=== PATIENT | male | born 1940 | race Caucasian/White ===

== ENCOUNTER → 2016-06-12 | Outpatient (CLI) | payer BC ==
[~2016-06-12] MED LIST: AMR2 PO; ASPI81TA28 PO; ATOR-22 PO; CLAR-78 PO; GLC/500 PO; IPRA1AER2 INH; MOME200A INH; PRED1SUS3 OPL; [UNRECOGNIZED DRUG - CODE] PO
--- NOTE | 2016-06-12 09:57 | DIAGNOSTIC IMAGING REPORT ---
CHEST CT WITHOUT CONTRAST CT DOSE: 716.63 mGy.cm HISTORY: Follow-up pulmonary nodule. J44.9 Chronic obstructive pulmonary [id number] Incidental lung TECHNIQUE: Multiaxial CT images of the chest were performed without contrast. COMPARISON: Chest CT 05/22/2014. FINDINGS: The central airways are patent. Moderate emphysema. Punctate calcified granuloma within the left upper lobe. Stable 3 mm subpleural point on within the right upper lobe on image 100. No new pulmonary nodules. No focal lung consolidations. No pleural effusions. No pneumothorax. No suspicious lytic or blastic osseous lesions. The heart is normal in size. No mediastinal or hilar lymphadenopathy. Stable 13 mm hypodense lesion within the upper pole of the right kidney. This likely represents a cyst. The visualized liver, spleen, and adrenal glands are unremarkable. Normal caliber thoracic aorta. IMPRESSION: 1. No significant change compared to the prior study. No acute abnormality within the chest. 2. Moderate emphysema. 3. Stable benign 3 mm nodule within the right upper lobe. Electronically signed by: Shadi Lindsey M.D. 06/12/2016 9:56 AM
== END | disposition home or self-care (01) ==
LOC: C.CTS 09:27
PROVIDERS: ATTEND Internal Medicine Pulmonary Disease
DX: J44.9 Chronic obstructive pulmonary disease, unspecified (principal); R91.1 Solitary pulmonary nodule

== ENCOUNTER → 2016-07-14 | Outpatient (CLI) | payer BC | END | disposition home or self-care (01) | LOC: C.LAB1850 08:10 | PROVIDERS: ATTEND Internal Medicine | DX: E11.9 Type 2 diabetes mellitus without complications (principal) ==

== ENCOUNTER → 2016-09-03 | Outpatient (CLI) | payer BC ==
--- NOTE | 2016-09-10 12:35 | CODING QUERY MEDICAL NECESSITY ---
SUPPORTING DIAGNOSIS NEEDED A supporting diagnosis is required for the test/procedure performed on this patient in order for us to be reimbursed by the patient's insurance. Please provide a supporting diagnosis for the following test/procedure listed below next to the test name along with your signature. *If there is no additional diagnosis for this patient that would support the following test/procedure please document that below next to the test/procedure. Test(s)/Procedure(s) that require a supporting diagnosis: * FRUCTOSAMINE DIAGNOSIS: * DOS: 09/03/16 Provider Signature: Date: Thank you Corinne Quezada Health Information Management Once completed, please kindly fax back to [phone] For questions please call [phone]
== END | disposition home or self-care (01) ==
LOC: C.LAB1850 09:33
PROVIDERS: ATTEND Internal Medicine
DX: E78.00 Pure hypercholesterolemia, unspecified (principal); E11.9 Type 2 diabetes mellitus without complications

== ENCOUNTER → 2016-10-22 | Outpatient (CLI) | payer BC ==
[~2016-10-22] MED LIST changes: -CLAR-78 PO; +CLAR1TAB25 PO
[2016-10-22 14:55] LABS: BASO % 0.6 %; BASO ABS # 0.06 K/uL (0-0.2); COMPLETE YES; EOS % 7.3 %; IG% 0.2 %; LYMPH % 25.3 %; LYMPH ABS # 2.48 K/uL (1.2-3.4); MEAN CELL VOLUME 90.7 fL (80-100); MEAN CORPUSCULAR HEMOGLOBIN 29.8 pg (25-34); MEAN CORPUSCULAR HGB CONC 32.8 g/dl (32-36); MEAN PLATELET VOLUME 10.3 fL (7.4-10.4); MONO % 9.6 %; PLATELET COUNT 263 K/uL (130-400); RED BLOOD COUNT 5.07 M/uL (4.7-6.1); WHITE BLOOD COUNT 9.81 K/uL (4.8-10.8)
[2016-10-22 15:07] LABS: URINE APPEARANCE CLEAR (CLEAR); URINE BILIRUBIN NEG (NEG); URINE COLOR YELLOW; URINE EPITHELIAL CELL AUTO 0-5 /lpf (0-5); URINE NITRITE NEG (NEG); URINE SPECIFIC GRAVITY 1.013 (1.000-1.030); UROBILINOGEN NEG (NEG)
[2016-10-22 15:10] LABS: MANUAL MICROSCOPIC REQUIRED? NO; REVIEW REQ? NO
[2016-10-22 15:13] LABS: ALT/SGPT 30 U/L (12-78); AST/SGOT 17 U/L (15-37)
[2016-10-23 06:27] LABS: ESTIMATED AVERAGE GLUCOSE 180 mg/dl; HA1C FLAG Normal (Normal)
--- NOTE | 2016-10-27 11:47 | CODING QUERY MEDICAL NECESSITY ---
SUPPORTING DIAGNOSIS NEEDED Dr. Perla, A supporting diagnosis is required for the test/procedure performed on this patient in order for us to be reimbursed by the patient's insurance. Please provide a supporting diagnosis for the following test/procedure listed below next to the test name along with your signature. *If there is no additional diagnosis for this patient that would support the following test/procedure please document that below next to the test/procedure. Test(s)/Procedure(s) that require a supporting diagnosis: * [id number] GLYCATED HEMOGLOBIN DIAGNOSIS: * [id number] FRUCTOSAMINE DIAGNOSIS: DATE OF SERVICE: 10/22/16 Provider Signature: Date: Thank you Ba [facility] Information Management Once completed, please kindly fax back to [phone] For questions please call [phone]
== END | disposition home or self-care (01) ==
LOC: C.LAB1850 13:43
PROVIDERS: ATTEND Internal Medicine
DX: E78.00 Pure hypercholesterolemia, unspecified (principal); E11.9 Type 2 diabetes mellitus without complications

== ENCOUNTER → 2017-01-27 | Outpatient (CLI) | payer BC ==
[~2017-01-27] MED LIST changes: +CLAR-78 PO; -CLAR1TAB25 PO
[2017-01-27 10:27] LABS: BASO % 0.8 %; BASO ABS # 0.06 K/uL (0-0.2); COMPLETE YES; EOS % 6.3 %; HEMATOCRIT 45.3 % (42-52); IG% 0.3 %; LYMPH ABS # 1.78 K/uL (1.2-3.4); MEAN CELL VOLUME 90.2 fL (80-100); MEAN CORPUSCULAR HEMOGLOBIN 30.7 pg (25-34); MEAN PLATELET VOLUME 10.4 fL (7.4-10.4); MONO % 9.7 %; NEUT % 59.9 %; PLATELET COUNT 245 K/uL (130-400); RED BLOOD COUNT 5.02 M/uL (4.7-6.1); WHITE BLOOD COUNT 7.74 K/uL (4.8-10.8)
[2017-01-27 10:31] LABS: URINE APPEARANCE CLEAR (CLEAR); URINE BILIRUBIN NEG (NEG); URINE COLOR YELLOW; URINE EPITHELIAL CELL AUTO 0-5 /lpf (0-5); URINE NITRITE NEG (NEG); URINE SPECIFIC GRAVITY 1.009 (1.000-1.030); UROBILINOGEN NEG (NEG)
[2017-01-27 10:33] LABS: MANUAL MICROSCOPIC REQUIRED? NO; REVIEW REQ? NO
[2017-01-27 10:44] LABS: ALT/SGPT 29 U/L (12-78); AST/SGOT 17 U/L (15-37); BLOOD UREA NITROGEN 13 mg/dl (7-18); BUN/CREATININE RATIO 14.6 (10-20); CALCIUM 9.2 mg/dl (8.5-10.1); CARBON DIOXIDE 31 mmol/L (21-32); CHLORIDE 102 mmol/L (98-107); CHOLESTEROL 124 mg/dl (0-200); GLUCOSE 137 mg/dl (70-99); SODIUM 138 mmol/L (136-145)
[2017-01-27 10:51] LABS: ESTIMATED AVERAGE GLUCOSE 166 mg/dl; HA1C FLAG Normal (Normal)
[2017-01-27 10:53] LABS: RATIO 87.8 mcg/mg (0-30.0)
[2017-01-27 10:54] LABS: CHOLESTEROL/HDL RATIO 1.8; HDL CHOLESTEROL 68 mg/dl; LDL CHOLESTEROL CALCULATED 44 mg/dl; TRIGLYCERIDES 58 mg/dl (0-150); VERY LOW DENSITY LIPOPROT CALC 12 mg/dl
== END | disposition home or self-care (01) ==
LOC: C.LAB1850 08:37
PROVIDERS: ATTEND Internal Medicine
DX: E11.9 Type 2 diabetes mellitus without complications (principal)

== ENCOUNTER → 2017-04-29 | Outpatient (CLI) | payer BC ==
[~2017-04-29] MED LIST changes: -CLAR-78 PO; +CLAR1TAB25 PO
[2017-04-29 13:48] LABS: ESTIMATED AVERAGE GLUCOSE 192 mg/dl; HA1C FLAG Normal (Normal)
== END | disposition home or self-care (01) ==
LOC: C.LAB1850 11:35
PROVIDERS: ATTEND Internal Medicine
DX: E78.00 Pure hypercholesterolemia, unspecified (principal)

== ENCOUNTER → 2017-08-12 | Outpatient (CLI) | payer BC ==
[2017-08-12 09:33] LABS: BASO % 0.8 %; BASO ABS # 0.07 K/uL (0-0.2); EOS % 6.2 %; EOS ABS # 0.52 K/uL (0-0.5); HEMOGLOBIN 15.5 g/dL (14.0-18.0); IG# 0.02 K/uL (0.00-0.02); LYMPH % 24.1 %; LYMPH ABS # 2.03 K/uL (1.2-3.4); MEAN CELL VOLUME 89.8 fL (80-100); MEAN CORPUSCULAR HEMOGLOBIN 30.9 pg (25-34); MEAN CORPUSCULAR HGB CONC 34.4 g/dl (32-36); MEAN PLATELET VOLUME 10.2 fL (7.4-10.4); MONO % 9.1 %; MONO ABS # 0.77 K/uL (0.11-0.59); NEUT % 59.6 %; NEUT ABS # 5.03 K/uL (1.4-6.5); PLATELET COUNT 249 K/uL (130-400); RED CELL DISTRIBUTION WIDTH CV 13.4 % (11.5-14.5); RED CELL DISTRIBUTION WIDTH SD 43.9 fL (36.4-46.3); WHITE BLOOD COUNT 8.44 K/uL (4.8-10.8)
[2017-08-12 09:46] LABS: HEMOGLOBIN A1C 8.7 % (4.5-5.6)
[2017-08-12 10:01] LABS: ALT/SGPT 24 U/L (12-78); AST/SGOT 10 U/L (15-37); BLOOD UREA NITROGEN 17 mg/dl (7-18); CALCIUM 9.2 mg/dl (8.5-10.1); CARBON DIOXIDE 28 mmol/L (21-32); CHOLESTEROL 124 mg/dl (0-200); CREATININE 0.85 mg/dl (0.60-1.40); GLUCOSE 154 mg/dl (70-99); POTASSIUM 3.9 mmol/L (3.5-5.1); SODIUM 133 mmol/L (136-145)
[2017-08-12 10:06] LABS: LDL CHOLESTEROL CALCULATED 50 mg/dl
== END | disposition home or self-care (01) ==
LOC: C.LAB1850 08:49
PROVIDERS: ATTEND Physician Assistant
DX: E11.9 Type 2 diabetes mellitus without complications (principal); E78.00 Pure hypercholesterolemia, unspecified; I10 Essential (primary) hypertension

== ENCOUNTER 2017-09-10 18:56 | Emergency (ER) | payer BC ==
[~2017-09-10] VITALS: Ht 172.7 cm; Wt 83.8 kg
[2017-09-10 19:27] VITALS: TEMP 37.5; Ht 172.7 cm; Wt 83.8 kg
[2017-09-10] MEDS ORDERED: ALBUT/IPRATROP 3MG/0.5MG NEB 3 ML VIAL INH STA ×2 (19:38→21:29)
[2017-09-10] MEDS ORDERED: METHYLPREDNISOLONE 125 MG VIAL IV STA (19:38)
[2017-09-10 19:40] VITALS: O2SAT 96
--- NOTE | 2017-09-10 19:42 | EMERGENCY ROOM VISIT NOTE ---
History Report prepared by Arlin: Pat Quigley Under the Supervision of: Dr. Gael Galeano D.O. First contact with patient: 19:36 Chief Complaint: FLU LIKE SX Stated Complaint: FLU LIKE SX, SOB, CHILLS History of Present Illness The patient is a 77 year old male who presents to the Emergency Room with complaints of flu-like symptoms beginning 4 days ago. He reports having shortness of breath while walking , throat congestion, and the chills. He denies having chest pain, coughing up blood, and leg swelling. The patient states that he has COPD, but that he does not wear Oxygen all the time. He states that he is a smoker, and reports that he is not on blood thinners. Source of History: patient Onset: 4 days ago Position: other (global) Quality: other (flu-like symptoms ) Associated Symptoms: + chills, + SOB, No chest pain Note: additional symptom: throat congestion denies: coughing up blood, leg swelling Review of Systems See HPI for pertinent positives & negatives. A total of 10 systems reviewed and were otherwise negative. Past Medical & Surgical Medical Problems: (1) Asthma W/O Status Asthm (2) COPD (chronic obstructive pulmonary disease) (3) Diab Alyssa Wo Compl, Type Ii Or Unspec Type, Not Uncntrld (4) Diverticulosis Colon (W/O Ment Of Hemorrhage) (5) Hyperlipidemia Nec/Nos (6) Hypertension Nos (7) Pneumonia, Organism Nos (8) Tobacco Use Disorder Surgical Problems: (1) History of appendectomy (2) History of tonsillectomy Family History No pertinent family history Social History Smoking Status: Current Every Day Smoker Alcohol Use: none Marital Status: Housing Status: lives alone Occupation Status: retired Current/Historical Medications Scheduled Aspirin (Aspirin Ec), 81 MG PO QAM Atorvastatin (Lipitor), 20 MG PO HS Azithromycin (Zithromax), 500 MG PO DAILY Glimepiride (Glimepiride), 1 TAB PO BID Levothyroxine Sodium (Synthroid), 88 MCG PO DAILY Metformin Hcl (Glucophage), 1,000 MG PO BID Mometasone Furoate-Formoterol (Dulera 200/5 Mcg), 2 PUFFS INH BID Pioglitazone Hcl (Actos), 45 MG PO DAILY Prednisone (Prednisone Tab), 40 MG PO DAILY Tiotropium [place] (Spiriva Respimat), 2 PUFF INH DAILY Valsartan/Hctz (Diovan Hct 160MG/25MG), 1 TAB PO DAILY Scheduled PRN Ipratropium-Albuterol (Combivent Respimat), 1 PUFFS INH QID PRN for SOB/Wheezing Allergies Coded Allergies: No Known Allergies (Unverified , 02/14/15) Physical Exam Vital Signs Date Time Temp Pulse Resp B/P (MAP) Pulse Ox O2 Delivery O2 Flow Rate FiO2 09/10/17 23:04 91 Room Air 09/10/17 22:49 103 22 130/75 96 Nasal Cannula 2.0 09/10/17 21:47 93 18 123/73 98 Nebulizer 8.0 09/10/17 21:23 95 09/10/17 20:56 93 20 119/71 97 09/10/17 19:40 96 Nasal Cannula 3.0 09/10/17 19:40 89 Room Air 09/10/17 19:27 37.5 104 22 136/72 90 Room Air Physical Exam GENERAL: Patient is awake, alert, and in no acute distress. Patient is resting comfortably and appears mildly anxious. EYES: The conjunctivae are clear. The pupils are round and reactive. EARS, NOSE, MOUTH AND THROAT: The nose is without any evidence of any deformity. Mucous membranes are moist tongue is midline NECK: The neck is nontender and supple. RESPIRATORY: Diminished throughout with pursed lip breathing noted. Expiratory wheezing was noted in all lung [place]. CARDIOVASCULAR: Regular rate and rhythm noted there no murmurs rubs or gallops normal S1 normal S2 GASTROINTESTINAL: The abdomen is soft. Bowel sounds are present in all quadrants. Abdomen is nontender MUSCULOSKELETAL/EXTREMITIES: There is no evidence of gross deformity full range of motion is noted in the hips and shoulders SKIN: There is no obvious evidence of any rash. There are no petechiae, pallor or cyanosis noted. Pedal edema bilaterally. NEUROLOGIC: Patient is awake alert and oriented x3 Medical Decision & Procedures ER Provider Diagnostic Interpretation: Radiology results as stated below per my review and radiologist interpretation: CHEST ONE VIEW PORTABLE CLINICAL HISTORY: 77 years-old Male presenting with EVALUATE RESPIRATORY DISTRESS.DYSPNEA. TECHNIQUE: Portable upright AP view of the chest was obtained. COMPARISON: CT chest from 06/12/2016 and chest x-ray from 12/21/2013. FINDINGS: Atherosclerosis of the aortic arch. Cardiac silhouette normal in size. No focal opacity. No large effusion or pneumothorax. Osseous structures normal. IMPRESSION: 1. No acute cardiopulmonary disease. Electronically signed by: Lucas Cabello M.D. 09/10/2017 7:54 PM Dictated Date/Time: 09/10/2017 7:53 PM Laboratory Results 09/10/17 19:45 Red Blood Count 5.10, Mean Corpuscular Volume 89.6, Mean Corpuscular Hemoglobin 31.2, Mean Corpuscular Hemoglobin Concent 34.8, Mean Platelet Volume 10.0, Neutrophils (%) (Auto) 79.0, Lymphocytes (%) (Auto) 7.4, Monocytes (%) (Auto) 12.0, Eosinophils (%) (Auto) 0.9, Basophils (%) (Auto) 0.4, Neutrophils # (Auto ) 7.43, Lymphocytes # (Auto) 0.70, Monocytes # (Auto) 1.13, Eosinophils # (Auto ) 0.08, Basophils # (Auto) 0.04 09/10/17 19:45 Test 09/10/17 19:45 09/10/17 20:02 09/10/17 20:46 White Blood Count 9.41 K/uL (4.8-10.8) Red Blood Count 5.10 M/uL (4.7-6.1) Hemoglobin 15.9 g/dL (14.0-18.0) Hematocrit 45.7 % (42-52) Mean Corpuscular Volume 89.6 fL (80-100) Mean Corpuscular Hemoglobin 31.2 pg (25-34) Mean Corpuscular Hemoglobin Concent 34.8 g/dl (32-36) Platelet Count 226 K/uL (130-400) Mean Platelet Volume 10.0 fL (7.4-10.4) Neutrophils (%) (Auto) 79.0 % Lymphocytes (%) (Auto) 7.4 % Monocytes (%) (Auto) 12.0 % Eosinophils (%) (Auto) 0.9 % Basophils (%) (Auto) 0.4 % Neutrophils # (Auto) 7.43 K/uL (1.4-6.5) Lymphocytes # (Auto) 0.70 K/uL (1.2-3.4) Monocytes # (Auto) 1.13 K/uL (0.11-0.59) Eosinophils # (Auto) 0.08 K/uL (0-0.5) Basophils # (Auto) 0.04 K/uL (0-0.2) RDW Standard Deviation 45.3 fL (36.4-46.3) RDW Coefficient of Variation 13.7 % (11.5-14.5) Immature Granulocyte % (Auto) 0.3 % Immature Granulocyte # (Auto) 0.03 K/uL (0.00-0.02) Prothrombin Time 10.5 SECONDS (9.0-12.0) Prothromb Time International Ratio 1.0 (0.9-1.1) Activated Partial Thromboplast Time 25.9 SECONDS (21.0-31.0) Partial Thromboplastin Ratio 1.0 Anion Gap 7.0 mmol/L (3-11) Est Creatinine Clear Calc Drug Dose 70.5 ml/min Estimated GFR () 90.9 Estimated GFR (Non- 78.4 BUN/Creatinine Ratio 11.9 (10-20) Calcium Level 9.5 mg/dl (8.5-10.1) Total Bilirubin 0.5 mg/dl (0.2-1) Aspartate Amino Transf (AST/SGOT) 25 U/L (15-37) Alanine Aminotransferase (ALT/SGPT) 30 U/L (12-78) Alkaline Phosphatase 80 U/L (45-117) Troponin I < 0.015 ng/ml (0-0.045) Pro-B-Type Natriuretic Peptide 222 pg/ml (0-1800) Total Protein 8.1 gm/dl (6.4-8.2) Albumin 4.3 gm/dl (3.4-5.0) Globulin 3.8 gm/dl (2.5-4.0) Albumin/Globulin Ratio 1.1 (0.9-2) Influenza Type A Antigen Neg for Influ A (NEG) Influenza Type B Antigen Neg for Influ B (NEG) Venous Blood pH 7.40 (7.36-7.41) Venous Blood Partial Pressure CO2 49 mmHg (38.0-50.0) Venous Blood Partial Pressure O2 39 mmHg Venous Blood HCO3 29 mmol/L Venous Blood Oxygen Saturation 70.5 % Venous Blood Base Excess 3.7 mEq/L Urine Color YELLOW Urine Appearance CLEAR (CLEAR) Urine pH 5.5 (4.5-7.5) Urine Specific [place] 1.021 (1.000-1.030) Urine Protein 1+ (NEG) Urine Glucose (UA) TRACE (NEG) Urine Ketones NEG (NEG) Urine Occult Blood TRACE (NEG) Urine Nitrite NEG (NEG) Urine Bilirubin NEG (NEG) Urine Urobilinogen NEG (NEG) Urine Leukocyte Esterase NEG (NEG) Urine WBC (Auto) 1-5 /hpf (0-5) Urine RBC (Auto) 0-4 /hpf (0-4) Urine Hyaline Casts (Auto) 1-5 /lpf (0-5) Urine Epithelial Cells (Auto) 5-10 /lpf (0-5) Urine Bacteria (Auto) NEG (NEG) Laboratory results per my review. Medications Administered Medications (Trade) Dose Ordered Sig/Nilesh Route Start Time Stop Time Status Last Admin Dose Admin Albuterol/ Ipratropium (Duoneb) 3 ml NOW STAT INH 09/10/17 19:38 09/10/17 19:40 DC 09/10/17 19:50 3 ML Methylprednisolone Sodium Succinate (Solu-Medrol IV) 125 mg NOW STAT IV 09/10/17 19:38 09/10/17 19:40 DC 09/10/17 19:50 125 MG Albuterol/ Ipratropium (Duoneb) 3 ml NOW STAT INH 09/10/17 21:29 09/10/17 21:30 DC 09/10/17 21:44 3 ML Azithromycin (Zithromax Tab) 500 mg NOW ONCE PO 09/10/17 23:00 09/10/17 23:01 DC 09/10/17 23:06 500 MG ECG Per My Interpretation Indication: SOB/dyspnea Rate (beats per minute): 93 Rhythm: sinus rhythm Findings: 1st degree AV block, no ectopy, other (no ST segment abnormalities ) Change: no significant change (from 01/31/15) ED Course 1935: The patient was evaluated in room B2. A complete history and physical examination were performed. 1937: Ordered Methylprednisolone Sodium Succinate 125 mg IV, Duoneb 3 ml INH. 2128: Ordered Duoneb 3 ml INH. 2129: The patient is still wheezing so I ordered another nebulizer treatment. 2249: Upon reevaluation, the patient is resting and would like to go home. I discussed the results and treatment plan with him. He verbalized agreement of the treatment plan. He was discharged home. 2300: Ordered Azithromycin 500 mg PO. Medical Decision Differential diagnosis: Etiologies such as infections, reactive airway disease, pneumonia, pneumothorax , COPD, CHF, cardiac ischemia, pulmonary embolism, musculoskeletal, gastrointestinal, as well as others were entertained. Nursing notes reviewed. The patient is a 77-year-old male who presented to the emergency department for an evaluation of difficulty breathing. The patient's history of physical exam appear to be consistent with COPD exacerbation. He was treated with DuoNeb therapy 2 as well as IV steroids. I discussed the patient's laboratory and radiographic studies with him. Because of his ongoing symptoms I recommended that he be evaluated by the hospitalist for inpatient management. The patient did not wish to stay in the hospital. He was feeling much better. He was started on Zithromax to cover for bronchitis. I recommended that he rest and avoid any strenuous activity. He was encouraged to continue all medications as prescribed including his bronchodilator therapy. He was also encouraged to return to the emergency department immediately if symptoms change worsen or the need arises. Medication Reconcilliation Current Medication List: was personally reviewed by me Blood Pressure Screening Patient's blood pressure: Normal blood pressure Impression Primary Impression: COPD (chronic obstructive pulmonary disease) Additional Impression: Hypoxia Scribe Attestation The scribe's documentation has been prepared under my direction and personally reviewed by me in its entirety. I confirm that the note above accurately reflects all work, treatment, procedures, and medical decision making performed by me. Departure Information Dispostion Home / Self-Care Prescriptions Azithromycin (Zithromax) 500 Mg Tab 500 MG PO DAILY, #4 TAB Prov: Gael Galeano, DO 09/10/17 Prednisone (Prednisone Tab) 20 Mg Tab 40 MG PO DAILY, #10 TAB Prov: Gael Galeano, DO 09/10/17 Referrals Julio Perla M.D. (PCP) Forms HOME CARE DOCUMENTATION FORM, IMPORTANT VISIT INFORMATION Patient Instructions Bronchitis Acute, COPD, My [facility] Additional Instructions Rest and avoid any strenuous activity. Continue all medications as prescribed. Continue using her nebulizers as prescribed. Start the steroid as well as the Zithromax tomorrow as you were given the first dose in the emergency department this evening. Return the emergency department immediately if symptoms change worsen or the need arises. Problem Qualifiers Primary Impression: COPD (chronic obstructive pulmonary disease) COPD type: unspecified COPD Qualified Codes: J44.9 - Chronic obstructive pulmonary disease, unspecified
--- NOTE | 2017-09-10 19:55 | DIAGNOSTIC IMAGING REPORT ---
CHEST ONE VIEW PORTABLE CLINICAL HISTORY: 77 years-old Male presenting with EVALUATE RESPIRATORY DISTRESS.DYSPNEA. TECHNIQUE: Portable upright AP view of the chest was obtained. COMPARISON: CT chest from 06/12/2016 and chest x-ray from 12/21/2013. FINDINGS: Atherosclerosis of the aortic arch. Cardiac silhouette normal in size. No focal opacity. No large effusion or pneumothorax. Osseous structures normal. IMPRESSION: 1. No acute cardiopulmonary disease. Electronically signed by: Lucas Cabello M.D. 09/10/2017 7:54 PM Dictated Date/Time: 09/10/2017 7:53 PM
[2017-09-10 19:59] LABS: BASO % 0.4 %; BASO ABS # 0.04 K/uL (0-0.2); EOS % 0.9 %; EOS ABS # 0.08 K/uL (0-0.5); HEMATOCRIT 45.7 % (42-52); HEMOGLOBIN 15.9 g/dL (14.0-18.0); IG# 0.03 K/uL (0.00-0.02); LYMPH % 7.4 %; MEAN CELL VOLUME 89.6 fL (80-100); MEAN CORPUSCULAR HEMOGLOBIN 31.2 pg (25-34); MEAN CORPUSCULAR HGB CONC 34.8 g/dl (32-36); MONO ABS # 1.13 K/uL (0.11-0.59); NEUT ABS # 7.43 K/uL (1.4-6.5); PLATELET COUNT 226 K/uL (130-400); RED CELL DISTRIBUTION WIDTH CV 13.7 % (11.5-14.5); RED CELL DISTRIBUTION WIDTH SD 45.3 fL (36.4-46.3); WHITE BLOOD COUNT 9.41 K/uL (4.8-10.8)
[2017-09-10 20:10] LABS: PTT PATIENT 25.9 SECONDS (21.0-31.0)
[2017-09-10 20:20] LABS: ALBUMIN 4.3 gm/dl (3.4-5.0); ALT/SGPT 30 U/L (12-78); BLOOD UREA NITROGEN 11 mg/dl (7-18); CALCIUM 9.5 mg/dl (8.5-10.1); CARBON DIOXIDE 29 mmol/L (21-32); CREATININE 0.94 mg/dl (0.60-1.40); GLUCOSE 119 mg/dl (70-99); POTASSIUM 3.8 mmol/L (3.5-5.1); SODIUM 135 mmol/L (136-145)
[2017-09-10 20:25] LABS: ALKALINE PHOSPHATASE 80 U/L (45-117); AST/SGOT 25 U/L (15-37); TOTAL PROTEIN 8.1 gm/dl (6.4-8.2)
[2017-09-10 20:30] LABS: INFLUENZA B ANTIGEN Neg for Influ B (NEG)
[2017-09-10 22:49] VITALS: BP 130/75; PULSE 103
[2017-09-10] MEDS ORDERED: PRED20TA2 PO (22:56)
[2017-09-10] MEDS ORDERED: AZIT500T26 PO (22:56)
[2017-09-10] MEDS ORDERED: AZITHROMYCIN 250 MG TAB PO ONE (23:00)
[2017-09-10 23:04] VITALS: O2SAT 91
[2017-09-10] MEDS ORDERED: LEVO88TA PO (23:04)
[2017-09-10] MEDS ORDERED: GLIM4TAB2 PO (23:04)
[2017-09-10] MEDS ORDERED: ACT/45 PO (23:04)
[2017-09-10] MEDS ORDERED: IPRA1AER2 INH (23:04)
[2017-09-10] MEDS ORDERED: VALS160T60 PO (23:04)
[2017-09-10] MEDS ORDERED: TIOT1SPR INH (23:04)
== END 2017-09-10 23:10 | disposition home or self-care (01) ==
LOC: C.EDB 18:57
DX: J44.1 Chronic obstructive pulmonary disease with (acute) exacerbation (principal); F17.210 Nicotine dependence, cigarettes, uncomplicated; J45.909 Unspecified asthma, uncomplicated; E11.9 Type 2 diabetes mellitus without complications; E78.5 Hyperlipidemia, unspecified; I10 Essential (primary) hypertension; Z87.01 Personal history of pneumonia (recurrent); Z79.82 Long term (current) use of aspirin; Z79.84 Long term (current) use of oral hypoglycemic drugs; Z79.899 Other long term (current) drug therapy

== ENCOUNTER 2021-06-11 15:10 | Inpatient (IN) ==
[2021-06-11 15:47] LABS: Basophils # (auto) 0.03 K/uL (0-0.2); Basophils % (auto) 0.2 %; Eosinophils % (auto) 0.7 %; Hematocrit (blood only) 45.6 % (42-52); Hemoglobin 15.1 g/dL (14.0-18.0); Immature Granulocytes % (auto) 0.7 %; Lymphocytes % (auto) 12.5 %; Mean Corpuscular Hemoglobin 30.6 pg (25-34); Mean Corpuscular Hgb Conc 33.1 g/dL (32-36); Mean Corpuscular Volume 92.5 fL (80-100); Mean Platelet Volume 9.9 fL (7.4-10.4); Monocytes # (auto) 1.24 K/uL (0.11-0.59); Monocytes % (auto) 8.6 %; Neutrophils # (auto) 11.14 K/uL (1.4-6.5); Neutrophils % (auto) 77.3 %; Platelet Count 334 K/uL (130-400); RDW Coefficient of Variation 13.6 % (11.5-14.5); RDW Standard Deviation 46.4 fL (36.4-46.3); Red Blood Count 4.93 M/uL (4.7-6.1); White Blood Count 14.41 K/uL (4.8-10.8)
[2021-06-11 16:00] LABS: Partial Thromboplastin Time 26.7 Seconds (21.0-31.0); Prothrombin Time 10.3 Seconds (9.0-12.0)
[2021-06-11 16:13] LABS: Alanine Aminotransferase 21 (12-78); Albumin Level 3.5 gm/dl (3.4-5.0); Aspartate Aminotransferase 12 U/L (15-37); BUN Creatinine Ratio 19.6 (10-20); Blood Urea Nitrogen 24 mg/dl (7-18); Calcium 9.9 mg/dl (8.5-10.1); Carbon Dioxide 36 mmol/L (21-32); Chloride 96 mmol/L (98-107); Est GFR (African American) 66.3 ml/min; Est GFR (Non-African American) 57.2 ml/min; Glucose 190 mg/dl (70-99); Magnesium 1.9 mg/dl (1.8-2.4); Potassium 3.2 mmol/L (3.5-5.1); Sodium 136 mmol/L (136-145)
[2021-06-11 16:17] LABS: Albumin Globulin Ratio 0.8 (0.9-2); Alkaline Phosphatase 89 U/L (45-117); Globulin 4.3 gm/dl (2.5-4.0); Total Protein 7.8 gm/dl (6.4-8.2); Troponin I < 0.015 ng/ml (0-0.045)
[2021-06-11 16:26] LABS: Influenza A virus by PCR Negative (Neg); Influenza B virus by PCR Negative (Neg); RSV by PCR Negative (Neg); SARS CoV2 RNA(COVID-19) InHosp NEGATIVE (Negative)
[2021-06-11] MEDS ORDERED: SODIUM CHLORIDE 0.9% 1000ML 500 ML IV ONE (16:51)
[2021-06-11] MEDS ORDERED: ALBUT/IPRATROP 3MG/0.5MG NEB 3 ML VIAL NEB STA (16:51)
[2021-06-11] MEDS ORDERED: methylPREDNISolone 125 MG/2 ML VIAL IV STA (16:51)
--- NOTE | 2021-06-11 17:00 | Emergency Department Note ---
History of Present Illness General Chief complaint: Shortness of Breath/Dyspnea Stated complaint: SOB Time Seen by Provider: 06/11/21 16:37 History of Present Illness 80-year-old male presents to the ED with a chief complaint of shortness of breath. The patient has had a productive cough with green and yellow phlegm for a few weeks. He states he has been feeling short of breath off and on for a few weeks. He has been feeling fatigued and tired. His breathing issues are worse with exertion. He does have a long history of smoking. He states that he does not smoke anymore but smoked for over 60 years. Nothing helps his symptoms. Home Medications Medication Instructions Recorded Confirmed Type allopurinol 300 mg tablet 300 mg PO QAM #90 tab 02/22/19 06/11/21 History albuterol sulfate 90 mcg/actuation 1 inh INHALATION QID PRN #18 g 04/11/20 06/11/21 Rx aerosol inhaler levothyroxine 88 mcg tablet 88 mcg PO DAILY #90 tab 04/24/21 06/11/21 Rx aspirin 81 mg tablet,delayed 81 mg PO DAILY 05/14/21 06/11/21 History release ipratropium 0.5 mg-albuterol 3 mg 3 ml INHALATION Q4H PRN #180 vial 05/14/21 06/11/21 Rx (2.5 mg base)/3 mL nebulization soln losartan 100 mg tablet 100 mg PO DAILY 05/14/21 06/11/21 History pioglitazone 45 mg tablet 45 mg PO DAILY 05/14/21 06/11/21 History atorvastatin 20 mg tablet 20 mg PO DAILY #90 tab 05/24/21 06/11/21 Rx hydrochlorothiazide 25 mg tablet 25 mg PO DAILY #90 tab 05/24/21 06/11/21 Rx liraglutide 0.6 mg/0.1 mL (18 mg/3 See Rx Instructions SUBCUT 05/24/21 06/11/21 Rx mL) subcutaneous pen injector .COMPLEX #9 ml metformin 1,000 mg tablet,extended 1,000 mg PO BID #180 tab 05/24/21 06/11/21 Rx release 24hr tiotropium bromide 2.5 2 puff INHALATION DAILY #1 inhaler 06/04/21 06/11/21 Rx mcg/actuation mist for inhalation mometasone-formoterol HFA 200 2 puff INHALATION BID 06/11/21 06/11/21 History mcg-5 mcg/actuation aerosol inhaler (Dulera) sitagliptin 100 mg tablet (Januvia) 100 mg PO DAILY 06/11/21 06/11/21 History Allergies Allergy/AdvReac Type Severity Reaction Status Date / Time No Known Allergies Allergy Mild Verified 06/11/21 17:47 Past Med/Surg History Medical History Acquired deviated nasal septum Actinic keratosis Chronic diarrhea Chronic gout COPD (chronic obstructive pulmonary disease) case management patient COPD with emphysema Incidental lung nodule, > 3mm and < 8mm Obesity (BMI 30.0-34.9) Type 2 diabetes mellitus without complication Surgical History History of appendectomy History of bilateral cataract extraction History of colonoscopy History of Mohs micrographic surgery for skin cancer x3 History of tonsillectomy History of wisdom tooth extraction Hx of vasectomy Family History Other No family history of adverse response to anesthesia Denies family history of Ovarian cancer Prostate cancer Myocardial infarction Breast cancer Colorectal cancer Social History Smoking Status: Current every day smoker Tobacco Type: Cigarettes Cigarettes Per Day: 10; Second Hand Exposure: Yes (CHILDHOOD); Hx Alcohol Use: No Hx Substance Use: No Preferred Language: Macedonian Communication Ability: Effective Visual Impairment: No Limitations Hearing Ability: Normal 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 Beliefs That Will Affect Care: None marital status: Legally Current Living Situation: Alone current occupational status: retired Feels Safe at Home: Yes Dental Care, Regularly: Yes Physical Activity Frequency: 1-2 Times per Week Seatbelt Use: always Sunscreen Use: No Assistive Devices: Glasses and Nebulizer Review of Systems A total of 10 systems reviewed and were otherwise negative Physical Exam Vital Signs Vital Signs - 24 hr 06/11/21 15:17 06/11/21 16:45 06/11/21 17:03 Temperature 36.5 C Temperature Source Temporal Artery Scan Pulse Rate 97 H Pulse Rate [Apical] 91 H Pulse Rhythm [Apical] Regular Pulse Strength [Apical] Normal Respiratory Rate 22 16 Respiratory Effort / Characteristics Non-Labored Spontaneous Respiratory Depth Normal Respiratory Pattern Regular Blood Pressure 116/75 Blood Pressure [Right Arm] 111/71 Blood Pressure Mean 88 Blood Pressure Mean [Right Arm] 84 Blood Pressure Position [Right Arm] Sitting Pulse Oximetry 95 98 98 Oxygen Delivery Method Room Air Nasal Cannula Nasal Cannula Oxygen Flow Rate 2 2 Fraction of Inspired Oxygen 78 Sepsis Recent Fever Within 48 Hours No Sepsis New/Unexplained Change in Mental Status N/A Sepsis Action Taken by Nursing No Action Required Oxygen Flow Rate - Titration 2 Pulse Oximetry Post Tiitration 99 06/11/21 17:12 06/11/21 17:51 06/11/21 18:12 Temperature Temperature Source Pulse Rate Pulse Rate [Apical] 84 Pulse Rhythm [Apical] Regular Pulse Strength [Apical] Normal Respiratory Rate 18 Respiratory Effort / Characteristics Non-Labored Respiratory Depth Respiratory Pattern Blood Pressure Blood Pressure [Right Arm] 111/71 Blood Pressure Mean Blood Pressure Mean [Right Arm] 84 Blood Pressure Position [Right Arm] Lying Pulse Oximetry 99 94 88 L Oxygen Delivery Method Nasal Cannula Room Air Room Air Oxygen Flow Rate 2 0 Fraction of Inspired Oxygen Sepsis Recent Fever Within 48 Hours Sepsis New/Unexplained Change in Mental Status Sepsis Action Taken by Nursing Oxygen Flow Rate - Titration 2 Pulse Oximetry Post Tiitration 95 CONSTITUTIONAL/VITAL SIGNS: Reviewed / noted above. GENERAL: Non-toxic in appearance. INTEGUMENTARY: Warm, dry, and [employer]. HEAD: Normocephalic. EYES: without scleral icterus or trauma. ENT/OROPHARYNX: clear and moist. LYMPHADENOPATHY/NECK: Is supple without lymphadenopathy or meningismus. RESPIRATORY: Diminished with expiratory wheezing to auscultation bilaterally. Mild increased work of breathing. CARDIOVASCULAR: Regular rate and rhythm. GI/ABDOMEN: Soft and nontender. No organomegaly or pulsatile mass. EXTREMITIES: Warm and well perfused. BACK: No CVA tenderness. NEUROLOGICAL: Intact without focal deficits. PSYCHIATRIC: normal affect. MUSCULOSKELETAL: Normally developed with good muscle tone. TRIAGE NURSING DOCUMENTATION REVIEWED. Course Administered Medications Discontinued Medications Albuterol (Albut/Ipratrop 3mg/0.5mg Neb 3 Ml Vial) 3 ml NEB NOW STA; Protocol Stop: 06/11/21 16:52 Last Admin: 06/11/21 17:25 Dose: 3 ml Documented by: [id number] Sodium Chloride (Nss 1000ml) 500 mls @ 999 mls/hr IV .Q31M ONE Stop: 06/11/21 17:21 Last Infusion: 06/11/21 18:10 Dose: 0 mls/hr Documented by: [id number] Admin: 06/11/21 17:25 Dose: 999 mls/hr Documented by: [id number] Ioversol (Optiray 320 125ml) 120 ml IV ONCE ONE Stop: 06/11/21 17:13 Last Admin: 06/11/21 17:13 Dose: 120 ml Documented by: [id number] Methylprednisolone (Methylprednisolone 125 Mg/2 Ml Vial) 125 mg IV NOW STA Stop: 06/11/21 16:52 Last Admin: 06/11/21 17:25 Dose: 125 mg Documented by: [id number] Medical Decision Making Differential Diagnosis The differential was considered includes acute myocardial infarction, acute coronary syndrome, myocarditis, pericarditis, pericardial effusions /tamponad, esophageal perforation, pulmonary embolism, pneumonia, pneumothorax, cardiomyopathy, congestive heart, anemia , COPD/asthma exacerbation. Medical Records Attestation: I reviewed the patient's medical records. Home Medications Current Medication List: was personally reviewed by me Laboratory Data Attestation: I reviewed the patient's lab results. Result diagrams: 06/11/21 15:33 06/11/21 15:33 Lab Results 06/11/21 06/11/21 06/11/21 Range/Units 15:33 15:33 15:33 WBC 14.41 H (4.8-10.8) K/uL RBC 4.93 (4.7-6.1) M/uL Hgb 15.1 (14.0-18.0) g/dL Hct 45.6 (42-52) % MCV 92.5 (80-100) fL MCH 30.6 (25-34) pg MCHC 33.1 (32-36) g/dL RDW Std Deviation 46.4 H (36.4-46.3) fL RDW Coeff of Samantha 13.6 (11.5-14.5) % Plt Count 334 (130-400) K/uL MPV 9.9 (7.4-10.4) fL Immature Gran % (Auto) 0.7 % Neut % (Auto) 77.3 % Lymph % (Auto) 12.5 % [place]haw % (Auto) 8.6 % Eos % (Auto) 0.7 % Baso % (Auto) 0.2 % Neut # (Auto) 11.14 H (1.4-6.5) K/uL Lymph # (Auto) 1.80 (1.2-3.4) K/uL [place]haw # (Auto) 1.24 H (0.11-0.59) K/uL Eos # (Auto) 0.10 (0-0.5) K/uL Baso # (Auto) 0.03 (0-0.2) K/uL Immature Gran # (Auto) 0.10 H (0.00-0.02) K/uL PT 10.3 (9.0-12.0) Seconds INR 1.0 (0.9-1.1) APTT 26.7 (21.0-31.0) Seconds PTT Ratio 1.0 Sodium 136 (136-145) mmol/L Potassium 3.2 L (3.5-5.1) mmol/L Chloride 96 L (98-107) mmol/L Carbon Dioxide 36 H (21-32) mmol/L Anion Gap 4.0 (3-11) BUN 24 H (7-18) mg/dl Creatinine 1.20 (0.6-1.4) mg/dl Est Cr Clr Drug Dosing Not Reportable Est GFR ( Amer) 66.3 ml/min Est GFR (Non-Af Amer) 57.2 ml/min BUN/Creatinine Ratio 19.6 (10-20) Glucose 190 H (70-99) mg/dl Calcium 9.9 (8.5-10.1) mg/dl Magnesium 1.9 (1.8-2.4) mg/dl AST 12 L (15-37) U/L ALT 21 (12-78) Alkaline Phosphatase 89 (45-117) U/L Troponin I < 0.015 (0-0.045) ng/ml Total Protein 7.8 (6.4-8.2) gm/dl Albumin 3.5 (3.4-5.0) gm/dl Globulin 4.3 H (2.5-4.0) gm/dl Albumin/Globulin Ratio 0.8 L (0.9-2) SARS-CoV-2 (PCR) (Negative) Influenza Type A (PCR) (Neg) Influenza Type B (PCR) (Neg) RSV (RT-PCR) (Neg) 06/11/21 Range/Units 15:33 WBC (4.8-10.8) K/uL RBC (4.7-6.1) M/uL Hgb (14.0-18.0) g/dL Hct (42-52) % MCV (80-100) fL MCH (25-34) pg MCHC (32-36) g/dL RDW Std Deviation (36.4-46.3) fL RDW Coeff of Samantha (11.5-14.5) % Plt Count (130-400) K/uL MPV (7.4-10.4) fL Immature Gran % (Auto) % Neut % (Auto) % Lymph % (Auto) % [place] % (Auto) % Eos % (Auto) % Baso % (Auto) % Neut # (Auto) (1.4-6.5) K/uL Lymph # (Auto) (1.2-3.4) K/uL [place] # (Auto) (0.11-0.59) K/uL Eos # (Auto) (0-0.5) K/uL Baso # (Auto) (0-0.2) K/uL Immature Gran # (Auto) (0.00-0.02) K/uL PT (9.0-12.0) Seconds INR (0.9-1.1) APTT (21.0-31.0) Seconds PTT Ratio Sodium (136-145) mmol/L Potassium (3.5-5.1) mmol/L Chloride (98-107) mmol/L Carbon Dioxide (21-32) mmol/L Anion Gap (3-11) BUN (7-18) mg/dl Creatinine (0.6-1.4) mg/dl Est Cr Clr Drug Dosing Est GFR ( Amer) ml/min Est GFR (Non-Af Amer) ml/min BUN/Creatinine Ratio (10-20) Glucose (70-99) mg/dl Calcium (8.5-10.1) mg/dl Magnesium (1.8-2.4) mg/dl AST (15-37) U/L ALT (12-78) Alkaline Phosphatase (45-117) U/L Troponin I (0-0.045) ng/ml Total Protein (6.4-8.2) gm/dl Albumin (3.4-5.0) gm/dl Globulin (2.5-4.0) gm/dl Albumin/Globulin Ratio (0.9-2) SARS-CoV-2 (PCR) NEGATIVE (Negative) Influenza Type A (PCR) Negative (Neg) Influenza Type B (PCR) Negative (Neg) RSV (RT-PCR) Negative (Neg) Imaging Data Radiologist's Impression: Chest X-Ray 06/11/21 15:29 XR chest 1V portable HISTORY: 80 years-old Male SOB acute shortness of breath COMPARISON: CTA chest of same day, chest CT of same day. TECHNIQUE: Portable AP view of the chest FINDINGS: Cardiomediastinal and hilar silhouettes are within normal limits. Calcified plaque of the thoracic aorta. Emphysema with chronic interstitial coarsening. Mild right basilar opacities. Degenerative changes of the shoulders and spine. No pneumothorax, large pleural effusion or overt pulmonary edema. IMPRESSION: 1. Mild right basilar opacities are better characterized on the CTA chest study of same day. 2. Emphysema with chronic interstitial coarsening. ACT 112: Negative or not required by law. The above report was generated using voice recognition software. It may contain grammatical, syntax or spelling errors. Electronically signed by: Adeel Breen M.D. 06/11/2021 5:21 PM Chest CTA 06/11/21 16:51 CT angio chest PE protocol CT DOSE: 538.64 mGy.cm HISTORY: 80 years-old Male with sob, hypoxia. Acute shortness of breath with hypoxia TECHNIQUE: Multiple CTA images of the chest were obtained after the intravenous administration of 120 ml Optiray. Coronal and sagittal MIPS were obtained from the axial data set and were submitted for review. All measurements were obtained according to NASCET criteria. A dose lowering technique was utilized adhering to the principles of ALARA. COMPARISON: Chest radiograph and low-dose chest CT of same day, chest CT 0 FINDINGS: CTA: The heart is normal in size. No pericardial effusion. Mild coronary artery calcifications. Atherosclerotic plaque of the thoracic aorta. Patency of the imaged great vessels. No thoracic aortic aneurysm or dissection. Reflux of contrast into the IVC and hepatic veins. There is satisfactory opacification of the pulmonary artery. No filling defects identified to suggest thromboembolic disease. CT CHEST: 1 mm hypodense nodule of the posterior right thyroid lobe. No adenopathy. No pneumothorax or pleural effusion. Severe pulmonary emphysema. Bronchial wall thickening with right greater than left bibasilar mucous plugging. Patchy consolidative opacities of the basal right lower lobe. There are no suspicious pulmonary nodules or masses identified. Mild tree-in-bud nodules of the basal left lower lobe. No acute process of the imaged upper abdomen. Mild nonspecific distal esophageal wall thickening. Probable cyst of the superior pole right kidney measures 1.7 cm. Unremarkable soft tissues. Degenerative changes of the shoulders and spine. IMPRESSION: 1. Severe emphysema with bronchial wall thickening suggestive of bronchitis. 2. Bibasilar mucous plugging with patchy consolidative densities of the basal right lower lobe and mild tree-in-bud nodules of the basal left lower lobe. Findings are compatible with an infectious or inflammatory pneumonitis. Correlate clinically to exclude aspiration. ACT 112: Negative or not required by law. The above report was generated using voice recognition software. It may contain grammatical, syntax or spelling errors. Electronically signed by: Adeel Breen M.D. 06/11/2021 5:[address] was performed. There is no acute disease. ECG Data Attestation: I personally reviewed and interpreted this ECG as follows: Additional Comments: Twelve-lead EKG: Per my interpretation shows a sinus rhythm at a rate of 88. PVC. No ST elevation. MDM Narrative Patient presents to the ED with a chief complaint of productive cough, fatigue and shortness of breath for 2 or 3 weeks. White blood cell count is 14. Ch emistry panel shows a BUN of 24. Glucose is 190. Troponin was negative. EKG shows a sinus rhythm with PVCs but no ST elevation. Covid and flu swabs are negative. A noncontrast CT did not show acute process. This was prior to arriving to the ED. His chest x-ray here as well as a CT scan shows bibasilar mucous plugging and patchy consolidative densities in the basilar right lower lobe and left lower lobe. The patient initially was documented to have a pulse ox of 95% in triage but when I went into the room, his saturations were in the high 70s to low 80s. The patient does have a cough. His CBC shows a white blood cell count of 14. BUN is 24. Glucose is 190. Troponin is negative. EKG shows a sinus rhythm with a PVC. Covid and flu are negative. The patient was given a DuoNeb treatment here. He was also given some IV fluids. He was given IV Solu-Medrol. He was also started on IV antibiotics and blood cultures have been taken. The patient will be seen by the hospitalist for further inpatient evaluation and care. Impression & Plan Bilateral interstitial pneumonia, Hypoxia, Asthma exacerbation in COPD Discharge Plan Visit Data Chief Complaint: Shortness of Breath/Dyspnea Stated Complaint: SOB ED Provider: Brayden Guzmán Discharge Problem: Bilateral interstitial pneumonia, Hypoxia, Asthma exacerbation in COPD Patient Disposition: Being Evaluated by Hospitalist Forms Stand Alone Forms: [facility], [facility] Emergency Department, Important Visit Information Prescriptions Prescriptions: No Action levothyroxine 88 mcg tablet 88 mcg PO DAILY Qty: 90 RF: 0 ipratropium-albuterol 0.5 mg-3 mg(2.5 mg base)/3 mL solution for nebulization 3 ml inhalation Q4H PRN (Reason: shortness of breath or wheezing) Qty: 180 RF: 1 tiotropium bromide 2.5 mcg/actuation mist 2 puff inhalation DAILY Qty: 1 RF: 11 albuterol sulfate 90 mcg/actuation HFA aerosol inhaler 1 inh inhalation QID PRN (Reason: shortness of breath or wheezing) Qty: 18 RF: 0 liraglutide 0.6 mg/0.1 mL (18 mg/3 mL) pen injector See Rx Instructions subcut .COMPLEX Qty: 9 RF: 3 metformin 1,000 mg tablet extended release 24hr 1,000 mg PO BID Qty: 180 RF: 3 atorvastatin 20 mg tablet 20 mg PO DAILY Qty: 90 RF: 3 hydrochlorothiazide 25 mg tablet 25 mg PO DAILY Qty: 90 RF: 3 allopurinol 300 mg tablet 300 mg PO QAM Qty: 90 RF: 0 Januvia 100 mg tablet 100 mg PO DAILY RF: 0 Dulera 200-5 mcg/actuation HFA aerosol inhaler 2 puff inhalation BID RF: 0 pioglitazone 45 mg tablet 45 mg PO DAILY RF: 0 losartan 100 mg tablet 100 mg PO DAILY RF: 0 aspirin 81 mg Tablet,Delayed Release (Dr/Ec) 81 mg PO DAILY RF: 0 Referrals Referrals: Kimberlee Syed MD [Primary Care Provider] -
[2021-06-11] MEDS ORDERED: OPTIRAY 320 125ml IV ONE (17:12)
--- NOTE | 2021-06-11 17:22 | XRay Report ---
XR chest 1V portable HISTORY: 80 years-old Male SOB acute shortness of breath COMPARISON: CTA chest of same day, chest CT of same day. TECHNIQUE: Portable AP view of the chest FINDINGS: Cardiomediastinal and hilar silhouettes are within normal limits. Calcified plaque of the thoracic ao rta. Emphysema with chronic interstitial coarsening. Mild right basilar opacities. Degenerative villareal es of the shoulders and spine. No pneumothorax, large pleural effusion or overt pulmonary edema. IMPRESSION: 1. Mild right basilar opacities are better characterized on the CTA chest study of same day. 2. Emphysema with chronic interstitial coarsening. ACT 112: Negative or not required by law. The above report was generated using voice recognition software. It may contain grammatical, syntax o r spelling errors. Electronically signed by: Adeel Breen M.D. 06/11/2021 5:21 PM
--- NOTE | 2021-06-11 17:36 | CT Scan Report ---
CT angio chest PE protocol CT DOSE: 538.64 mGy.cm HISTORY: 80 years-old Male with sob, hypoxia. Acute shortness of breath with hypoxia TECHNIQUE: Multiple CTA images of the chest were obtained after the intravenous administration of 120 ml Optiray. Coronal and sagittal MIPS were obtained from the axial data set and were submitted for review. All measurements were obtained according to NASCET criteria. A dose lowering technique was u tilized adhering to the principles of ALARA. COMPARISON: Chest radiograph and low-dose chest CT of same day, chest CT 06/16/2019 FINDINGS: CTA: The heart is normal in size. No pericardial effusion. Mild coronary artery calcifications. Atheroscle rotic plaque of the thoracic aorta. Patency of the imaged great vessels. No thoracic aortic aneurysm or dissection. Reflux of contrast into the IVC and hepatic veins. There is satisfactory opacification of the pulmonary artery. No filling defects identified to suggest thromboembolic disease. CT CHEST: 1 mm hypodense nodule of the posterior right thyroid lobe. No adenopathy. No pneumothorax or pleural effusion. Severe pulmonary emphysema. Bronchial wall thickening with right greater than left bibasila r mucous plugging. Patchy consolidative opacities of the basal right lower lobe. There are no suspici ous pulmonary nodules or masses identified. Mild tree-in-bud nodules of the basal left lower lobe. No acute process of the imaged upper abdomen. Mild nonspecific distal esophageal wall thickening. Pro bable cyst of the superior pole right kidney measures 1.7 cm. Unremarkable soft tissues. Degenerative changes of the shoulders and spine. IMPRESSION: 1. Severe emphysema with bronchial wall thickening suggestive of bronchitis. 2. Bibasilar mucous plugging with patchy consolidative densities of the basal right lower lobe and mi ld tree-in-bud nodules of the basal left lower lobe. Findings are compatible with an infectious or in flammatory pneumonitis. Correlate clinically to exclude aspiration. ACT 112: Negative or not required by law. The above report was generated using voice recognition software. It may contain grammatical, syntax o r spelling errors. Electronically signed by: Adeel Breen M.D. 06/11/2021 5:35 PM
[2021-06-11] MEDS ORDERED: cefTRIAXone SODIUM 1,000 MG/50 ML BAG IV STA (18:15)
[2021-06-11] MEDS ORDERED: AZITHROMYCIN 500 MG in DEXTROSE 5% 250 ML IV STA (18:15)
[2021-06-11 18:48] LABS: Bilirubin,Total 0.4 mg/dl (0.2-1)
--- NOTE | 2021-06-11 20:22 | History & Physical Report ---
Date of Service June 11, 2021 Assessment & Plan (1) Bilateral interstitial pneumonia: Plan: Bilateral basilar pneumonia/bronchitis/COPD/hypoxia- Given methylprednisolone 40 mg IV, azithromycin 500 mg IV, ceftriaxone 1 g IV and a DuoNeb by the ED Methylprednisolone 40 mg IV every 8 hours Ceftriaxone 2 g IV daily Azithromycin 500 mg IV daily Duonebs every 4 hours while awake and every 2 hours when necessary. Guaifenesin extended release 12 mg p.o. twice daily Nasal cannula oxygen, titrate to keep pulse ox around 94% Admit to monitored bed (2) Hypoxia: Plan: See above (3) Asthma exacerbation in COPD: Plan: See above (4) Chronic gout: Plan: Continue allopurinol 300 mg daily (5) Type 2 diabetes mellitus without complication: Plan: Hold liraglutide, Metformin, pioglitazone and sitagliptin Check hemoglobin A1c Place on Accu-Cheks before meals and at bedtime with NovoLog coverage per scale Follow closely while getting IV methylprednisolone (6) Hypertension: Plan: Continue aspirin and losartan Hold HCTZ due to hypokalemia Give Klor-Con 40 mEq p.o. x1 in the ED (7) Hypothyroidism: Plan: Continue levothyroxine 88 mcg daily History of Present Illness Chief Complaint: The patient presents to the emergency department with worsening shortness of breath and productive cough with greenish-yellow phlegm over the past 2 to 3 weeks Primary Care Provider: Kimberlee Syed MD The patient is a 76-year-old male with a past medical history including COPD, morbid obesity, chronic gout, diabetes mellitus type 2, chronic sinusitis, frequent PVCs, hypertension, hypothyroidism, tobacco use, and hyperlipidemia. The patient presents with symptoms as noted above. He has been using his inhalers as directed. Allergies Allergy/AdvReac Type Severity Reaction Status Date / Time No Known Allergies Allergy Mild Verified 06/11/21 17:47 Home Medications Medication Instructions Recorded Confirmed Type allopurinol 300 mg tablet 300 mg PO QAM #90 tab 02/22/19 06/11/21 History albuterol sulfate 90 mcg/actuation 1 inh INHALATION QID PRN #18 g 04/11/20 06/11/21 Rx aerosol inhaler levothyroxine 88 mcg tablet 88 mcg PO DAILY #90 tab 04/24/21 06/11/21 Rx aspirin 81 mg tablet,delayed 81 mg PO DAILY 05/14/21 06/11/21 History release ipratropium 0.5 mg-albuterol 3 mg 3 ml INHALATION Q4H PRN #180 vial 05/14/21 06/11/21 Rx (2.5 mg base)/3 mL nebulization soln losartan 100 mg tablet 100 mg PO DAILY 05/14/21 06/11/21 History pioglitazone 45 mg tablet 45 mg PO DAILY 05/14/21 06/11/21 History atorvastatin 20 mg tablet 20 mg PO DAILY #90 tab 05/24/21 06/11/21 Rx hydrochlorothiazide 25 mg tablet 25 mg PO DAILY #90 tab 05/24/21 06/11/21 Rx liraglutide 0.6 mg/0.1 mL (18 mg/3 See Rx Instructions SUBCUT 05/24/21 06/11/21 Rx mL) subcutaneous pen injector .COMPLEX #9 ml metformin 1,000 mg tablet,extended 1,000 mg PO BID #180 tab 05/24/21 06/11/21 Rx release 24hr tiotropium bromide 2.5 2 puff INHALATION DAILY #1 inhaler 06/04/21 06/11/21 Rx mcg/actuation mist for inhalation mometasone-formoterol HFA 200 2 puff INHALATION BID 06/11/21 06/11/21 History mcg-5 mcg/actuation aerosol inhaler (Dulera) sitagliptin 100 mg tablet (Januvia) 100 mg PO DAILY 06/11/21 06/11/21 History Past Med/Surg History Medical History Acquired deviated nasal septum Actinic keratosis Chronic diarrhea Chronic gout COPD (chronic obstructive pulmonary disease) case management patient COPD with emphysema Incidental lung nodule, > 3mm and < 8mm Obesity (BMI 30.0-34.9) Type 2 diabetes mellitus without complication Surgical History History of appendectomy History of bilateral cataract extraction History of colonoscopy History of Mohs micrographic surgery for skin cancer x3 History of tonsillectomy History of wisdom tooth extraction Hx of vasectomy Family History Other No family history of adverse response to anesthesia Denies family history of Ovarian cancer Prostate cancer Myocardial infarction Breast cancer Colorectal cancer Social History Smoking Status: Current every day smoker Tobacco Type: Cigarettes Cigarettes Per Day: 10; Second Hand Exposure: Yes (CHILDHOOD); Hx Alcohol Use: No Hx Substance Use: No Preferred Language: Welsh Communication Ability: Effective Visual Impairment: No Limitations Hearing Ability: Normal Ticket Broker Required: No Beliefs That Will Affect Care: None marital status: Legally Current Living Situation: Alone current occupational status: retired Feels Safe at Home: Yes Dental Care, Regularly: Yes Physical Activity Frequency: 1-2 Times per Week Seatbelt Use: always Sunscreen Use: No Assistive Devices: Glasses and Nebulizer Review of Systems Review of Systems: The patient denies chest pain, palpitations, lower extremity swelling, sore throat, fevers, chills, sweats, nausea, vomiting, diarrhea , constipation, abdominal pain, pelvic pain, blood in urine or stool, dysuria, urinary frequency or urgency, lightheadedness, dizziness, headache, memory loss, loss of consciousness, rash, abnormal bruising or bleeding, imbalance, focal weakness, numbness or tingling in arms or legs, generalized arthralgias or myalgias, back or neck pain, or night sweats. The review of systems is otherwise negative other than for that already noted above, and at least 10 systems have been reviewed. Physical Exam Physical Exam: The patient is awake, alert and oriented 3, well developed and well nourished, normocephalic and atraumatic, lying in bed and in no acute distress. HEENT--PERRL, EOMI, mucous membranes and oropharynx normal. Neck--supple. No JVD. No bruits. Thyroid normal, trachea midline, no adenopathy. Heart--normal S1 and S2. No murmurs, rubs or gallops. Lungs--wheezes and rhonchi bilaterally. No respiratory distress, no accessory muscle use. Abdomen--normal bowel sounds and soft. Nontender. Nondistended, no hernias or masses, no organomegaly. Extremities--no cyanosis or clubbing. No edema. Dermatologic--normal skin turgor, normal color, no abnormal lymph nodes, no rash. Neurologic--cranial nerves II through XII grossly intact. Rheumatologic--normal range of motion. Psychiatric--normal affect. Results & Data Results & Data ([facility]) Vital Signs (Past 12 Hours) Vital Signs Temp Pulse Pulse Resp BP BP Pulse Ox 06/11/21 19:19 81 18 116/85 99 06/11/21 18:12 88 L 06/11/21 17:51 84 18 111/71 94 06/11/21 17:12 99 06/11/21 17:03 98 06/11/21 16:45 91 H 16 111/71 98 06/11/21 15:17 36.5 C 97 H 22 116/75 95 Laboratory Results Laboratory Results WBC 14.41 K/uL (4.8-10.8) H 06/11/21 15:33 RBC 4.93 M/uL (4.7-6.1) 06/11/21 15:33 Hgb 15.1 g/dL (14.0-18.0) 06/11/21 15:33 Hct 45.6 % (42-52) 06/11/21 15:33 MCV 92.5 fL (80-100) 06/11/21 15:33 MCH 30.6 pg (25-34) 06/11/21 15:33 MCHC 33.1 g/dL (32-36) 06/11/21 15:33 RDW Std Deviation 46.4 fL (36.4-46.3) H 06/11/21 15:33 RDW Coeff of Samantha 13.6 % (11.5-14.5) 06/11/21 15:33 Plt Count 334 K/uL (130-400) 06/11/21 15:33 MPV 9.9 fL (7.4-10.4) 06/11/21 15:33 Immature Gran % (Auto) 0.7 % 06/11/21 15:33 Neut % (Auto) 77.3 % 06/11/21 15:33 Lymph % (Auto) 12.5 % 06/11/21 15:33 [place] % (Auto) 8.6 % 06/11/21 15:33 Eos % (Auto) 0.7 % 06/11/21 15:33 Baso % (Auto) 0.2 % 06/11/21 15:33 Neut # (Auto) 11.14 K/uL (1.4-6.5) H 06/11/21 15:33 Lymph # (Auto) 1.80 K/uL (1.2-3.4) 06/11/21 15:33 [place] # (Auto) 1.24 K/uL (0.11-0.59) H 06/11/21 15:33 Eos # (Auto) 0.10 K/uL (0-0.5) 06/11/21 15:33 Baso # (Auto) 0.03 K/uL (0-0.2) 06/11/21 15:33 Immature Gran # (Auto) 0.10 K/uL (0.00-0.02) H 06/11/21 15:33 PT 10.3 Seconds (9.0-12.0) 06/11/21 15:33 INR 1.0 (0.9-1.1) 06/11/21 15:33 APTT 26.7 Seconds (21.0-31.0) 06/11/21 15:33 PTT Ratio 1.0 06/11/21 15:33 Sodium 136 mmol/L (136-145) 06/11/21 15:33 Potassium 3.2 mmol/L (3.5-5.1) L 06/11/21 15:33 Chloride 96 mmol/L (98-107) L 06/11/21 15:33 Carbon Dioxide 36 mmol/L (21-32) H 06/11/21 15:33 Anion Gap 4.0 (3-11) 06/11/21 15:33 BUN 24 mg/dl (7-18) H 06/11/21 15:33 Creatinine 1.20 mg/dl (0.6-1.4) 06/11/21 15:33 Est Cr Clr Drug Dosing Not Reportable 06/11/21 15:33 Est GFR ( Amer) 66.3 ml/min 06/11/21 15:33 Est GFR (Non-Af Amer) 57.2 ml/min 06/11/21 15:33 BUN/Creatinine Ratio 19.6 (10-20) 06/11/21 15:33 Glucose 190 mg/dl (70-99) H 06/11/21 15:33 POC Glucose 246 mg/dl (70-99) H 06/11/21 23:42 Lactate 1.3 mmol/L (0.4-2.0) 06/11/21 18:42 Calcium 9.9 mg/dl (8.5-10.1) 06/11/21 15:33 Magnesium 1.9 mg/dl (1.8-2.4) 06/11/21 15:33 Total Bilirubin 0.4 mg/dl (0.2-1) 06/11/21 15:33 AST 12 U/L (15-37) L 06/11/21 15:33 ALT 21 (12-78) 06/11/21 15:33 Alkaline Phosphatase 89 U/L (45-117) 06/11/21 15:33 Troponin I < 0.015 ng/ml (0-0.045) 06/11/21 15:33 Total Protein 7.8 gm/dl (6.4-8.2) 06/11/21 15:33 Albumin 3.5 gm/dl (3.4-5.0) 06/11/21 15:33 Globulin 4.3 gm/dl (2.5-4.0) H 06/11/21 15:33 Albumin/Globulin Ratio 0.8 (0.9-2) L 06/11/21 15:33 SARS-CoV-2 (PCR) NEGATIVE (Negative) 06/11/21 15:33 Influenza Type A (PCR) Negative (Neg) 06/11/21 15:33 Influenza Type B (PCR) Negative (Neg) 06/11/21 15:33 RSV (RT-PCR) Negative (Neg) 06/11/21 15:33 Impressions Chest X-Ray 06/11/21 15:29 XR chest 1V portable HISTORY: 80 years-old Male SOB acute shortness of breath COMPARISON: CTA chest of same day, chest CT of same day. TECHNIQUE: Portable AP view of the chest FINDINGS: Cardiomediastinal and hilar silhouettes are within normal limits. Calcified plaque of the thoracic aorta. Emphysema with chronic interstitial coarsening. Mild right basilar opacities. Degenerative changes of the shoulders and spine. No pneumothorax, large pleural effusion or overt pulmonary edema. IMPRESSION: 1. Mild right basilar opacities are better characterized on the CTA chest study of same day. 2. Emphysema with chronic interstitial coarsening. ACT 112: Negative or not required by law. The above report was generated using voice recognition software. It may contain grammatical, syntax or spelling errors. Electronically signed by: Adeel Breen M.D. 06/11/2021 5:21 PM Chest CTA 06/11/21 16:51 CT angio chest PE protocol CT DOSE: 538.64 mGy.cm HISTORY: 80 years-old Male with sob, hypoxia. Acute shortness of breath with hypoxia TECHNIQUE: Multiple CTA images of the chest were obtained after the intravenous administration of 120 ml Optiray. Coronal and sagittal MIPS were obtained from the axial data set and were submitted for review. All measurements were obtained according to NASCET criteria. A dose lowering technique was utilized adhering to the principles of ALARA. COMPARISON: Chest radiograph and low-dose chest CT of same day, chest CT 06/16/2019 FINDINGS: CTA: The heart is normal in size. No pericardial effusion. Mild coronary artery calcifications. Atherosclerotic plaque of the thoracic aorta. Patency of the imaged great vessels. No thoracic aortic aneurysm or dissection. Reflux of contrast into the IVC and hepatic veins. There is satisfactory opacification of the pulmonary artery. No filling defects identified to suggest thromboembolic disease. CT CHEST: 1 mm hypodense nodule of the posterior right thyroid lobe. No adenopathy. No pneumothorax or pleural effusion. Severe pulmonary emphysema. Bronchial wall thickening with right greater than left bibasilar mucous plugging. Patchy consolidative opacities of the basal right lower lobe. There are no suspicious pulmonary nodules or masses identified. Mild tree-in-bud nodules of the basal left lower lobe. No acute process of the imaged upper abdomen. Mild nonspecific distal esophageal wall thickening. Probable cyst of the superior pole right kidney measures 1.7 cm. Unremarkable soft tissues. Degenerative changes of the shoulders and spine. IMPRESSION: 1. Severe emphysema with bronchial wall thickening suggestive of bronchitis. 2. Bibasilar mucous plugging with patchy consolidative densities of the basal right lower lobe and mild tree-in-bud nodules of the basal left lower lobe. Findings are compatible with an infectious or inflammatory pneumonitis. Correlate clinically to exclude aspiration. ACT 112: Negative or not required by law. The above report was generated using voice recognition software. It may contain grammatical, syntax or spelling errors. Electronically signed by: Adeel Breen M.D. 06/11/2021 5:35 PM Code Status & VTE Plan Code Status Full code VTE Prophylaxis Plan VTE Prophylaxis will be ordered: Yes PG Care Time/CCT Total # of Minutes Spent Total Time Spent with Patient: Total time spent is greater than 50% in coordination of care (as documented) at patient's floor/unit and/or counseling patient: Coding Level of Care Code 42001 Initial Inpt Care Lvl 3 Diagnoses Bilateral interstitial pneumonia J84.9 Hypoxia R09.02 Asthma exacerbation in COPD J44.1; J45.901 Chronic gout M1A.9XX0 Type 2 diabetes mellitus without complication E11.9 Hypertension I10 Hypothyroidism E03.9
[2021-06-11] MEDS ORDERED: POTASSIUM CHLORIDE CRTAB 20 MEQ TABCR PO STA (20:30)
[2021-06-11] MEDS ORDERED: ACETAMINOPHEN 325 MG TAB PO PRN (22:50)
[2021-06-11] MEDS ORDERED: ONDANSETRON INJ 2 MG/ML 2 ML VIAL IV PRN (22:50)
[2021-06-11] MEDS ORDERED: GLUCOSE 40% GEL 15 GM TUBE PO PRN (22:50)
[2021-06-11] MEDS ORDERED: GLUCOSE 10 TABS/TUBE PO PRN (22:50)
[2021-06-11] MEDS ORDERED: GLUCAGON FOR INJ 1 MG VIAL SQ PRN (22:50)
[2021-06-11] MEDS ORDERED: DEXTROSE 50% 50 ML SYRINGE IV PRN (22:50)
[2021-06-11] MEDS ORDERED: CARBOHYDRATES FOR HYPOGLYCEMIA PO PRN (22:50)
[2021-06-11] MEDS: INSULIN ASPART PER UNIT SC SCH (23:50)
[2021-06-11] MEDS: ENOXAPARIN INJ 40 MG/0.4 ML SYR SQ SCH (23:53)
[2021-06-11] MEDS: guaiFENesin 600 MG TABCR PO SCH (23:53)
[2021-06-12] MEDS: LEVOTHYROXINE SODIUM 88 MCG TABLET PO SCH (05:29)
[2021-06-12 05:56] LABS: Basophils # (auto) 0.01 K/uL (0-0.2); Basophils % (auto) 0.1 %; Hemoglobin 13.7 g/dL (14.0-18.0); Immature Granulocytes # (auto) 0.12 K/uL (0.00-0.02); Immature Granulocytes % (auto) 0.8 %; Lymphocytes # (auto) 0.98 K/uL (1.2-3.4); Lymphocytes % (auto) 6.3 %; Mean Corpuscular Hemoglobin 30.3 pg (25-34); Mean Corpuscular Hgb Conc 32.6 g/dL (32-36); Mean Corpuscular Volume 92.9 fL (80-100); Mean Platelet Volume 10.3 fL (7.4-10.4); Monocytes % (auto) 3.2 %; Neutrophils # (auto) 14.07 K/uL (1.4-6.5); Neutrophils % (auto) 89.6 %; Platelet Count 312 K/uL (130-400); RDW Coefficient of Variation 13.4 % (11.5-14.5); RDW Standard Deviation 45.9 fL (36.4-46.3); Red Blood Count 4.52 M/uL (4.7-6.1); White Blood Count 15.68 K/uL (4.8-10.8)
[2021-06-12 06:30] LABS: Albumin Globulin Ratio 0.8 (0.9-2); BUN Creatinine Ratio 19.7 (10-20); Bilirubin,Total 0.3 mg/dl (0.2-1); Calcium 9.6 mg/dl (8.5-10.1); Creatinine Clr Calc Pharmacy 73.5 ml/min; Est GFR (African American) 95.6 ml/min; Est GFR (Non-African American) 82.5 ml/min; Globulin 3.9 gm/dl (2.5-4.0); Potassium 4.3 mmol/L (3.5-5.1); Total Protein 6.9 gm/dl (6.4-8.2)
[2021-06-12] MEDS: ALBUT/IPRATROP 3MG/0.5MG NEB 3 ML VIAL NEB SCH ×2 (07:10→11:12)
[2021-06-12] MEDS: methylPREDNISolone 40 MG in SYRINGE 0 ML IV SCH ×3 (07:35→23:10)
[2021-06-12] MEDS: INSULIN ASPART PER UNIT SC SCH ×4 (07:35→20:17)
[2021-06-12 08:29] LABS: Estimated Average Glucose 229 mg/dl; Hemoglobin A1C 9.6 % (4.5-5.6)
[2021-06-12] MEDS: ASPIRIN 81 MG ECTAB PO SCH (08:36)
[2021-06-12] MEDS: ATORVASTATIN 20 MG TAB PO SCH (08:36)
[2021-06-12] MEDS: allopurinoL 300 MG TAB PO SCH (08:36)
[2021-06-12] MEDS: LOSARTAN POTASSIUM 50 MG TAB PO SCH (08:37)
[2021-06-12] MEDS: guaiFENesin 600 MG TABCR PO SCH ×2 (08:37→20:08)
[2021-06-12] MEDS ORDERED: FLUTICASONE/VILANTEROL 200/25MCG 14 PUFFS/INHALER INH SCH (09:00)
--- NOTE | 2021-06-12 12:44 | Electrocardiogram Report ---
Test Reason : Blood Pressure : / mmHG Vent. Rate : 088 BPM Atrial Rate : 088 BPM P-R Int : 202 ms QRS Dur : 096 ms QT Int : 362 ms P-R-T Axes : 103 077 077 degrees QTc Int : 438 ms Poor data quality, interpretation may be adversely affected Sinus rhythm with Premature supraventricular complexes and Premature ventricular complexes or Fusion complexes Nonspecific ST abnormality Abnormal ECG When compared with ECG of 10-SEP-2017 19:58, Premature ventricular complexes are now Present Premature supraventricular complexes are now Present Nonspecific T wave abnormality now evident in Inferior leads Confirmed by Gael Mei ([id number]) on 06/12/2021 12:43:54 PM Referred By: Confirmed By:Gael Mei
[2021-06-12] MEDS ORDERED: FUROSEMIDE INJ 20 MG/2 ML VIAL IV ONE (13:43)
[2021-06-12] MEDS ORDERED: FUROSEMIDE 40 MG/4 ML VIAL IV ONE (14:02)
[2021-06-12] MEDS: ACETYLCYSTEINE 10% INHAL SOLN 4 ML **DISPENSED BY RESP. INH SCH ×2 (16:52→19:03)
[2021-06-12] MEDS: FORMOTEROL 20 MCG/2 ML VIAL NEB SCH ×2 (16:53→19:03)
[2021-06-12] MEDS: ALBUTEROL 0.083% NEBU SOLN 3 ML VIAL NEB SCH (19:02)
[2021-06-12] MEDS: BUDESONIDE 0.5 MG/2 ML VIAL (PULMICORT) NEB SCH (19:03)
[2021-06-12] MEDS: cefTRIAXone SODIUM 2,000 MG in DEXTROSE 5% 50 ML IV SCH (19:07)
--- NOTE | 2021-06-12 20:02 | Hospitalist Progress Note ---
Date of Service June 12, 2021 Assessment & Plan (1) Bilateral interstitial pneumonia: Plan: * Presented with ongoing S OB X 2 weeks * Leukocytosis noted of 14.4 and mild hypoxemia of 88% on room air * CXR showing interstitial opacities * CTA showing severe emphysema with bronchial wall thickening and mucous plugging and tree-in-bud infectious process * Continue typical and atypical coverage for community-acquired pneumonia (azithromycin/Rocephin) * Continue methylprednisolone for bronchospasm/associated acute exacerbation of COPD * Add aggressive pulmonary toilet including Pulmicort/Perforomist, albuterol and Mucomyst for mucous plugging * Add flutter valve * Add BNP and give 1 dose Lasix with reassessment * Continue mucolytic agents and antitussives * Supplemental oxygen to maintain a pulse ox of 90% * Sputum cultures and blood cultures ordered (2) Hypoxia: Plan: See above (3) Asthma exacerbation in COPD: Plan: See above (4) Chronic gout: Plan: Continue allopurinol 300 mg daily (5) Type 2 diabetes mellitus without complication: Plan: Hold liraglutide, Metformin, pioglitazone and sitagliptin A1C 9.6 met with software educator-- pt recently placed on Victoza-- PCP to FU on this continue SS while in house (6) Hypertension: Plan: Continue aspirin and losartan Hold HCTZ due to hypokalemia Potassium 3.2 in the ED. Supplemented and resolved (7) Hypothyroidism: Plan: Continue levothyroxine 88 mcg daily Plan: Plan of care discussed with Dr. Holder. Further orders as warranted. Admission and Anticipated Discharge Date Admission Date: June 11, 2021 Supervising Physician Co-Signing Physician Notes LISBETH Supervision Note: I did not personally see or examine the patient today, but I verified all armando points of LISBETH Kenny's assessment and plan with the following exceptions/additions: With corticosteroid-induced hyperglycemia-add on Lantus 8 units at bedtime and titrate up as needed Subjective Patient seen on daily rounds today. Vocalizes no significant complaints or concerns. Still has a cough that is loose but nonproductive. Requiring 2 L of oxygen to maintain a pulse ox in the mid 90s. Breathing better with oxygen. Review of Systems Review of Systems: All systems reviewed and are unremarkable except as noted in HPI and below Denies fevers, chills, headache, nasal congestion, sore throat, chest pain, shortness of breath, palpitations, orthopnea, PND, abdominal pain, nausea, vomiting, diarrhea, constipation, dysuria, hematuria, frequency, back pain, joint pain or swelling, easy bruising or bleeding, skin lesions or rashes. Physical Exam Physical Exam: General: Resting comfortably in his hospital bed. Loose cough audible. Does briefly desaturate during coughing spells NAD. HEENT: Head is AT/NC buccal mucosa is moist and pink Neck: No JVD. Negative hepatojugular reflex Cardiac: RRR but distant Lungs: Normal respiratory effort. Diminished breath sounds throughout. End expiratory wheezes. Coarse scattered rhonchi that mobilizes but does not clear with coughing. Abdomen: Normoactive X4. Soft and nontender in all quadrants. Extremities: No peripheral clubbing cyanosis or edema Neuro: A&O X4 cranial nerves II through XII are grossly intact no focal neuro deficits Skin: No obvious skin lesions or rashes Psych: Appropriate affect pleasant and cooperative Results & Data Results & Data ([facility]) Vital Signs (Past 12 Hours) Vital Signs Temp Pulse Pulse Resp BP Pulse Ox 06/12/21 19:27 36.3 C L 75 18 107/66 94 06/12/21 19:05 80 20 95 06/12/21 16:29 36.5 C 82 22 103/68 98 06/12/21 16:22 82 06/12/21 12:19 79 18 100 06/12/21 11:12 89 16 98 Laboratory Results 06/12/21 05:22 06/12/21 05:22 PG Care Time/CCT Total # of Minutes Spent Total Time Spent with Patient: Total time spent is greater than 50% in coordination of care (as documented) at patient's floor/unit and/or counseling patient: Coding Level of Care Code 96364 Subseq Hosp Care Lvl 3 Diagnoses Bilateral interstitial pneumonia J84.9 Hypoxia R09.02 Asthma exacerbation in COPD J44.1; J45.901 Chronic gout M1A.9XX0 Type 2 diabetes mellitus without complication E11.9 Hypertension I10 Hypothyroidism E03.9
[2021-06-12] MEDS: AZITHROMYCIN 500 MG in DEXTROSE 5% 250 ML IV SCH (21:08)
[2021-06-12] MEDS: ENOXAPARIN INJ 40 MG/0.4 ML SYR SQ SCH (21:13)
[2021-06-12] MEDS: INSULIN GLARGINE SOLOSTAR 100 UNITS/ML 3 ML PEN SC SCH (21:33)
[2021-06-13] MEDS ORDERED: LORazepam 0.5 MG TAB PO STA (00:34)
[2021-06-13] MEDS: ALBUTEROL 0.083% NEBU SOLN 3 ML VIAL NEB SCH ×4 (01:09→19:41)
[2021-06-13] MEDS: ACETYLCYSTEINE 10% INHAL SOLN 4 ML **DISPENSED BY RESP. INH SCH ×4 (01:09→19:40)
[2021-06-13] MEDS: LEVOTHYROXINE SODIUM 88 MCG TABLET PO SCH (06:04)
[2021-06-13] MEDS: BUDESONIDE 0.5 MG/2 ML VIAL (PULMICORT) NEB SCH ×2 (07:35→19:41)
[2021-06-13] MEDS: FORMOTEROL 20 MCG/2 ML VIAL NEB SCH ×2 (07:38→19:41)
[2021-06-13 08:13] LABS: Basophils # (auto) 0.01 K/uL (0-0.2); Basophils % (auto) 0.1 %; Hematocrit (blood only) 44.7 % (42-52); Hemoglobin 14.5 g/dL (14.0-18.0); Immature Granulocytes # (auto) 0.22 K/uL (0.00-0.02); Immature Granulocytes % (auto) 1.1 %; Lymphocytes # (auto) 1.06 K/uL (1.2-3.4); Lymphocytes % (auto) 5.3 %; Mean Corpuscular Hemoglobin 30.4 pg (25-34); Mean Corpuscular Hgb Conc 32.4 g/dL (32-36); Mean Corpuscular Volume 93.7 fL (80-100); Mean Platelet Volume 10.3 fL (7.4-10.4); Monocytes # (auto) 0.72 K/uL (0.11-0.59); Monocytes % (auto) 3.6 %; Neutrophils # (auto) 17.87 K/uL (1.4-6.5); Neutrophils % (auto) 89.9 %; Platelet Count 388 K/uL (130-400); RDW Coefficient of Variation 13.5 % (11.5-14.5); RDW Standard Deviation 46.8 fL (36.4-46.3); Red Blood Count 4.77 M/uL (4.7-6.1); White Blood Count 19.88 K/uL (4.8-10.8)
[2021-06-13 08:57] LABS: Albumin Globulin Ratio 0.7 (0.9-2); Albumin Level 3.1 gm/dl (3.4-5.0); BUN Creatinine Ratio 22.5 (10-20); Calcium 9.6 mg/dl (8.5-10.1); Creatinine Clr Calc Pharmacy 62.5 ml/min; Est GFR (African American) 81.6 ml/min; Est GFR (Non-African American) 70.4 ml/min; Globulin 4.5 gm/dl (2.5-4.0); Magnesium 1.9 mg/dl (1.8-2.4); Potassium 4.2 mmol/L (3.5-5.1); Total Protein 7.6 gm/dl (6.4-8.2)
[2021-06-13] MEDS: INSULIN ASPART PER UNIT SC SCH ×4 (09:01→20:50)
[2021-06-13] MEDS: methylPREDNISolone 40 MG in SYRINGE 0 ML IV SCH ×3 (09:02→23:57)
[2021-06-13] MEDS: ATORVASTATIN 20 MG TAB PO SCH (09:02)
[2021-06-13] MEDS: ASPIRIN 81 MG ECTAB PO SCH (09:02)
[2021-06-13] MEDS: guaiFENesin 600 MG TABCR PO SCH ×2 (09:03→23:00)
[2021-06-13] MEDS: LOSARTAN POTASSIUM 50 MG TAB PO SCH (09:03)
[2021-06-13] MEDS: allopurinoL 300 MG TAB PO SCH (09:03)
[2021-06-13 09:15] LABS: Bilirubin,Total 0.2 mg/dl (0.2-1)
[2021-06-13 10:44] LABS: Base Excess VBG 7.3 mEq/L; pH VBG 7.37 (7.36-7.41)
--- NOTE | 2021-06-13 15:14 | Hospitalist Progress Note ---
Date of Service June 13, 2021 Assessment & Plan (1) Bilateral interstitial pneumonia: Plan: * Presented with ongoing SOB X 2 weeks * Leukocytosis noted of 14.4 and mild hypoxemia of 88% on room air * CXR showing interstitial opacities * CTA showing severe emphysema with bronchial wall thickening and mucous plugging and tree-in-bud infectious process * Continue coverage for community-acquired pneumonia (azithromycin/Rocephin) * Continue methylprednisolone for bronchospasm/associated acute exacerbation of COPD * continue aggressive pulmonary toilet including Pulmicort/Perforomist, albuterol and Mucomyst for mucous plugging * continue flutter valve and add chest PT to help mobilize secretions. * BNP ordered yesterday along with 1 dose of lasix. no significant response and BNP 388. I do not think there is a component of volume overload * Continue mucolytic agents and antitussives * Supplemental oxygen to maintain a pulse ox of 90% * Sputum cultures (which patient has not been able to expectorate) and blood cultures ordered * repeat covid to ensure 1st was not a false negative as I have seen several false negatives with recent omicron strain * VBG ordered given hypersomnolence and consistent with chronic but not acute hypercapnia. likely related to infectious process (2) Leukocytosis: Plan: - WBC 14.41 upon arrival - uptrending and now 19.88 but clinica improvement noted - patient on high doses of steroids-- likely steroid induced - continue to follow clinically (3) Hypersomnia: Plan: - patient is awake and alert just c/o excessive fatigue - likely related to infectious process - VBG done to ensure no acute hypercapnia. Although COD 61, pH is normal at 7.37--> indicative of chronic hypercapnia. (4) Hypoxia: Plan: See above presented with pulse ox of 88% on RA goal is to maintain pulse ox 90-92% and notuc higher given underlying COPD and risk of acute on chronic hypercapnia--> currently 97% on 4L. Staff encouraged to downtitrate supplemental O2 (5) Asthma exacerbation in COPD: Plan: See above (6) Chronic gout: Plan: Continue allopurinol 300 mg daily (7) Type 2 diabetes mellitus without complication: Plan: Hold liraglutide while in house but will continue his metformin, januvia and pioglitazone A1C 9.6 met with art educator this hospital stay-- pt recently placed on Victoza-- PCP to FU on this With significant corticosteroid induced hyperglycemia continue SS while in house -Tighten down NovoLog coverage-make range 100-140, decrease correction factor to 25, increase carb ratio to 1:12 Increase Lantus to 14 units each night (8) Hypertension: Plan: Continue aspirin and losartan Hold HCTZ due to hypokalemia Potassium 3.2 in the ED. Supplemented and resolved (9) Hypothyroidism: Plan: Continue levothyroxine 88 mcg daily TSH 2.1 in 01/2021 Plan: Plan of care will be discussed with Dr. Holder. Further orders as warranted. Admission and Anticipated Discharge Date Admission Date: June 11, 2021 Supervising Physician Co-Signing Physician Notes LISBETH Supervision Note: I did not personally see or examine the patient today, but I verified all armando points of LISBETH Kenny's assessment and plan with the following exceptions/additions: Titrated up on insulin as noted above Subjective seen on daily rounds today. Overall, feeling "a lot better" compared to when he came in but reports that he is easily fatigued. Cough seems to be "loosening up but not bringing anything up". Otherwise, denies F/C, CP, SOB, abd pain, N/V. Review of Systems Constitutional: All systems reviewed and are unremarkable except as noted in HPI and below Complaining of excessive fatigue but otherwise, denies fevers, chills, headache, nasal congestion, sore throat, chest pain, shortness of breath, palpitations, orthopnea, PND, abdominal pain, nausea, vomiting, diarrhea, constipation, dysuria, hematuria, frequency, back pain, joint pain or swelling, easy bruising or bleeding, skin lesions or rashes. Physical Exam Physical Exam: General: Resting comfortably in his hospital bed. NAD. HEENT: Head is AT/NC buccal mucosa is moist and pink Neck: No JVD. Negative hepatojugular reflex Cardiac: RRR without M/G/R Lungs: Breathing is nonlabored. Normal respiratory effort. Slightly improved air exchange throughout but still with diminished breath sounds. Mid to end expiratory wheezes with scattered rhonchi that mobilizes with coughing. Does not clear Abdomen: Normoactive X4. Soft and nontender in all quadrants. Extremities: No peripheral clubbing cyanosis or edema Neuro: A&O X4 cranial nerves II through XII are grossly intact no focal neuro deficits Skin: No obvious skin lesions or rashes Psych: Appropriate affect pleasant and cooperative Results & Data Results & Data ([facility]) Vital Signs (Past 12 Hours) Vital Signs Temp Pulse Pulse Resp BP Pulse Ox 06/13/21 14:59 93 H 06/13/21 13:29 94 H 20 97 06/13/21 08:16 36.7 C 104 H 20 126/74 93 06/13/21 07:40 82 16 96 06/13/21 07:00 75 PG Care Time/CCT Total # of Minutes Spent Total Time Spent with Patient: Total time spent is greater than 50% in coordination of care (as documented) at patient's floor/unit and/or counseling patient: Coding Level of Care Code 02759 Subseq Hosp Care Lvl 2 Diagnoses Bilateral interstitial pneumonia J84.9 Hypoxia R09.02 Asthma exacerbation in COPD J44.1; J45.901 Chronic gout M1A.9XX0 Type 2 diabetes mellitus without complication E11.9 Hypertension I10 Hypothyroidism E03.9 Leukocytosis D72.829 Hypersomnia G47.10
[2021-06-13 16:51] LABS: Influenza A virus by PCR Negative (Neg); Influenza B virus by PCR Negative (Neg); RSV by PCR Negative (Neg); SARS CoV2 RNA(COVID-19) InHosp NEGATIVE (Negative)
[2021-06-13] MEDS: metFORMIN HCL ER 500 MG TABCR PO SCH (16:56)
[2021-06-13] MEDS: cefTRIAXone SODIUM 2,000 MG in DEXTROSE 5% 50 ML IV SCH (17:03)
[2021-06-13] MEDS: INSULIN GLARGINE SOLOSTAR 100 UNITS/ML 3 ML PEN SC SCH (20:50)
[2021-06-13] MEDS: AZITHROMYCIN 500 MG in DEXTROSE 5% 250 ML IV SCH (20:51)
[2021-06-13] MEDS: ENOXAPARIN INJ 40 MG/0.4 ML SYR SQ SCH (20:54)
[2021-06-13] MEDS ORDERED: INSULIN GLARGINE SOLOSTAR 100 UNITS/ML 3 ML PEN SC ONE (23:11)
[2021-06-14] MEDS: ALBUTEROL 0.083% NEBU SOLN 3 ML VIAL NEB SCH ×2 (00:09→07:10)
[2021-06-14] MEDS: ACETYLCYSTEINE 10% INHAL SOLN 4 ML **DISPENSED BY RESP. INH SCH ×2 (00:09→07:09)
[2021-06-14] MEDS: LEVOTHYROXINE SODIUM 88 MCG TABLET PO SCH (06:28)
[2021-06-14 06:36] LABS: Hematocrit (blood only) 41.8 % (42-52); Hemoglobin 13.4 g/dL (14.0-18.0); Immature Granulocytes # (auto) 0.19 K/uL (0.00-0.02); Immature Granulocytes % (auto) 1.1 %; Lymphocytes # (auto) 0.93 K/uL (1.2-3.4); Lymphocytes % (auto) 5.3 %; Mean Corpuscular Hgb Conc 32.1 g/dL (32-36); Mean Corpuscular Volume 93.7 fL (80-100); Mean Platelet Volume 10.2 fL (7.4-10.4); Monocytes # (auto) 0.69 K/uL (0.11-0.59); Monocytes % (auto) 3.9 %; Neutrophils % (auto) 89.7 %; Platelet Count 379 K/uL (130-400); RDW Coefficient of Variation 13.4 % (11.5-14.5); RDW Standard Deviation 46.2 fL (36.4-46.3); Red Blood Count 4.46 M/uL (4.7-6.1); White Blood Count 17.51 K/uL (4.8-10.8)
[2021-06-14] MEDS: BUDESONIDE 0.5 MG/2 ML VIAL (PULMICORT) NEB SCH ×2 (07:10→20:18)
[2021-06-14 07:12] LABS: BUN Creatinine Ratio 26.1 (10-20); Calcium 9.8 mg/dl (8.5-10.1); Est GFR (African American) 96.5 ml/min; Est GFR (Non-African American) 83.3 ml/min
[2021-06-14 07:15] LABS: Albumin Globulin Ratio 0.8 (0.9-2); Bilirubin,Total 0.2 mg/dl (0.2-1); Globulin 3.9 gm/dl (2.5-4.0); Total Protein 6.9 gm/dl (6.4-8.2)
[2021-06-14] MEDS: PIOGLITAZONE HCL 15 MG TAB PO SCH (08:04)
[2021-06-14] MEDS: SITagliptin PHOSPHATE 100 MG TAB PO SCH (08:05)
[2021-06-14] MEDS: metFORMIN HCL ER 500 MG TABCR PO SCH ×2 (08:05→17:38)
[2021-06-14] MEDS: methylPREDNISolone 40 MG in SYRINGE 0 ML IV SCH ×2 (08:06→17:05)
[2021-06-14] MEDS: guaiFENesin 600 MG TABCR PO SCH ×2 (08:06→19:44)
[2021-06-14] MEDS: INSULIN ASPART PER UNIT SC SCH ×4 (08:18→19:53)
[2021-06-14] MEDS: FORMOTEROL 20 MCG/2 ML VIAL NEB SCH ×2 (09:01→20:18)
[2021-06-14] MEDS: allopurinoL 300 MG TAB PO SCH (09:12)
[2021-06-14] MEDS: LOSARTAN POTASSIUM 50 MG TAB PO SCH (09:13)
[2021-06-14] MEDS: ASPIRIN 81 MG ECTAB PO SCH (09:13)
[2021-06-14] MEDS: ATORVASTATIN 20 MG TAB PO SCH (09:13)
[2021-06-14] MEDS: ALBUT/IPRATROP 3MG/0.5MG NEB 3 ML VIAL NEB SCH ×3 (10:44→20:18)
--- NOTE | 2021-06-14 15:01 | Hospitalist Progress Note ---
Date of Service June 14, 2021 Assessment & Plan (1) Bilateral interstitial pneumonia: Plan: * Presented with ongoing SOB X 2 weeks * Leukocytosis noted of 14.4 and mild hypoxemia of 88% on room air * covid negative x2 * CXR showing interstitial opacities * CTA showing severe emphysema with bronchial wall thickening , mucous plugging and tree-in-bud infectious process * Continue coverage for community-acquired pneumonia (azithromycin/Rocephin) * Continue methylprednisolone for bronchospasm/associated acute exacerbation of COPD. Given significant improvement, transition to p.o. prednisone in a.m. * continue aggressive pulmonary toilet including Pulmicort/Perforomist. We will transition Mucomyst/albuterol to DuoNeb as lungs clearing * continue flutter valve and chest PT * BNP ordered yesterday along with 1 dose of lasix. no significant response and BNP 388. I do not think there is a component of volume overload * Continue mucolytic agents and antitussives * Supplemental oxygen to maintain a pulse ox of 90% * Sputum cultures (which patient has not been able to expectorate) and blood cultures ordered (2) Leukocytosis: Plan: - WBC 14.41 upon arrival - uptrending but clinical improvement noted - patient on high doses of steroids-- likely steroid induced - continue to follow clinically (3) Hypersomnia: Plan: - patient is awake and alert just c/o excessive fatigue - likely related to infectious process - VBG done to ensure no acute hypercapnia. Although COD 61, pH is normal at 7.37--> indicative of chronic hypercapnia. (4) Hypoxia: Plan: See above presented with pulse ox of 88% on RA goal is to maintain pulse ox 90-92% and notuc higher given underlying COPD and risk of acute on chronic hypercapnia--> currently 94% on 4L. Staff encouraged to downtitrate supplemental O2 (5) Asthma exacerbation in COPD: Plan: See above (6) Chronic gout: Plan: Continue allopurinol 300 mg daily (7) Type 2 diabetes mellitus without complication: Plan: Hold liraglutide while in house but will continue his metformin, januvia and pioglitazone A1C 9.6 met with nurse informatics educator this hospital stay-- pt recently placed on Victoza-- PCP to FU on this With significant corticosteroid induced hyperglycemia continue SS coverage and nightly lantus. Patient still slightly hyperglycemic this morning at 235. Given plan to transition IV to p.o. prednisone, hold off on up titration of Lantus for now and risk of hypoglycemia. (8) Hypertension: Plan: Continue aspirin and losartan Hold HCTZ due to hypokalemia Potassium 3.2 in the ED. Supplemented and resolved (9) Hypothyroidism: Plan: Continue levothyroxine 88 mcg daily TSH 2.1 in 01/2021 Plan: Plan of care will be discussed with Dr. Mike. Further orders as warranted. Admission and Anticipated Discharge Date Admission Date: June 11, 2021 Supervising Physician Co-Signing Physician Notes chart reviewed, case d/w J Zoya PAC. agree w above Subjective Patient seen on daily rounds today. Overall feels significantly improved. Still having significant coughing with decreased ability to actually expectorate but denies feeling short of breath at rest or with ambulation. Denies fevers, chills, chest pain, shortness of breath, abdominal pain, nausea or vomiting. Nursing voices no complaints or concerns. Review of Systems Review of Systems: All systems reviewed and are unremarkable except as noted in HPI and below Denies fevers, chills, headache, nasal congestion, sore throat, chest pain, shortness of breath, palpitations, orthopnea, PND, abdominal pain, nausea, vomiting, diarrhea, constipation, dysuria, hematuria, frequency, back pain, joint pain or swelling, easy bruising or bleeding, skin lesions or rashes. Physical Exam Physical Exam: General: Resting comfortably in his hospital bed. He does not appear ill or toxic. NAD. HEENT: Head is AT/NC buccal mucosa is moist and pink Neck: No JVD. Negative hepatojugular reflex Cardiac: RRR with 1/6 MAIKEL Lungs: Normal respiratory effort. Significantly improved air exchange throughout with end expiratory wheezes predominantly at the bases Abdomen: Normoactive X4. Soft and nontender in all quadrants. Extremities: No peripheral clubbing cyanosis or edema Neuro: A&O X4 cranial nerves II through XII are grossly intact no focal neuro deficits Skin: No obvious skin lesions or rashes Psych: Appropriate affect pleasant and cooperative Results & Data Results & Data ([facility]) Vital Signs (Past 12 Hours) Vital Signs Temp Pulse Pulse Resp BP Pulse Ox Pulse Ox 06/14/21 11:10 36.4 C L 93 H 18 99/67 L 94 06/14/21 10:47 92 H 20 93 06/14/21 09:02 88 20 97 06/14/21 08:00 77 97 06/14/21 07:57 36.8 C 88 20 127/83 91 06/14/21 07:13 77 20 94 PG Care Time/CCT Total # of Minutes Spent Total Time Spent with Patient: Total time spent is greater than 50% in coordination of care (as documented) at patient's floor/unit and/or counseling patient: Coding Level of Care Code 72600 Subseq Hosp Care Lvl 2 Diagnoses Bilateral interstitial pneumonia J84.9 Leukocytosis D72.829 Hypersomnia G47.10 Hypoxia R09.02 Asthma exacerbation in COPD J44.1; J45.901 Chronic gout M1A.[id number] Type 2 diabetes mellitus without complication E11.9 Hypertension I10 Hypothyroidism E03.9
[2021-06-14] MEDS: cefTRIAXone SODIUM 2,000 MG in DEXTROSE 5% 50 ML IV SCH (17:39)
[2021-06-14] MEDS: AZITHROMYCIN 500 MG in DEXTROSE 5% 250 ML IV SCH (19:38)
[2021-06-14] MEDS: INSULIN GLARGINE SOLOSTAR 100 UNITS/ML 3 ML PEN SC SCH (19:54)
[2021-06-14] MEDS: ENOXAPARIN INJ 40 MG/0.4 ML SYR SQ SCH (19:55)
[2021-06-15] MEDS: LEVOTHYROXINE SODIUM 88 MCG TABLET PO SCH (06:24)
[2021-06-15] MEDS: FORMOTEROL 20 MCG/2 ML VIAL NEB SCH ×2 (07:33→19:37)
[2021-06-15] MEDS: ALBUT/IPRATROP 3MG/0.5MG NEB 3 ML VIAL NEB SCH ×4 (07:33→19:38)
[2021-06-15] MEDS: BUDESONIDE 0.5 MG/2 ML VIAL (PULMICORT) NEB SCH ×2 (07:33→19:37)
[2021-06-15 07:43] LABS: Hemoglobin 15.1 g/dL (14.0-18.0); Mean Corpuscular Hemoglobin 30.3 pg (25-34); Mean Corpuscular Hgb Conc 32.8 g/dL (32-36); Mean Corpuscular Volume 92.4 fL (80-100); Platelet Count 432 K/uL (130-400); RDW Coefficient of Variation 13.3 % (11.5-14.5); RDW Standard Deviation 44.9 fL (36.4-46.3); Red Blood Count 4.98 M/uL (4.7-6.1)
[2021-06-15 07:59] LABS: BUN Creatinine Ratio 25.1 (10-20); Calcium 9.9 mg/dl (8.5-10.1); Creatinine Clr Calc Pharmacy 67.3 ml/min; Est GFR (African American) 90.2 ml/min; Est GFR (Non-African American) 77.8 ml/min
[2021-06-15] MEDS: LOSARTAN POTASSIUM 50 MG TAB PO SCH (08:45)
[2021-06-15] MEDS: ATORVASTATIN 20 MG TAB PO SCH (08:46)
[2021-06-15] MEDS: ASPIRIN 81 MG ECTAB PO SCH (08:46)
[2021-06-15] MEDS: guaiFENesin 600 MG TABCR PO SCH ×2 (08:46→20:29)
[2021-06-15] MEDS: SITagliptin PHOSPHATE 100 MG TAB PO SCH (08:46)
[2021-06-15] MEDS: allopurinoL 300 MG TAB PO SCH (08:46)
[2021-06-15] MEDS: metFORMIN HCL ER 500 MG TABCR PO SCH ×2 (08:46→16:57)
[2021-06-15] MEDS: PIOGLITAZONE HCL 15 MG TAB PO SCH (08:47)
[2021-06-15] MEDS: predniSONE 20 MG TAB PO SCH (08:47)
[2021-06-15] MEDS: INSULIN ASPART PER UNIT SC SCH ×4 (08:53→20:22)
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
--- NOTE | 2021-06-15 15:06 | Hospitalist Progress Note ---
Date of Service June 15, 2021 Assessment & Plan (1) Bilateral interstitial pneumonia: Plan: * Presented with ongoing SOB X 2 weeks * Leukocytosis noted of 14.4 and mild hypoxemia of 88% on room air * covid negative x2 * CXR showing interstitial opacities * CTA showing severe emphysema with bronchial wall thickening , mucous plugging and tree-in-bud infectious process * Continue coverage for community-acquired pneumonia (azithromycin/Rocephin) * methylprednisolone for bronchospasm/associated acute exacerbation of COPD upfront. Transitioned to PO prednisone 06/15/21 * continue aggressive pulmonary toilet including Pulmicort/Perforomist. Transitioned Mucomyst/albuterol to DuoNeb as lungs clearing * continue flutter valve and chest PT * 1 dose of lasix. no significant response and BNP 388. I do not think there is a component of volume overload * Continue mucolytic agents and antitussives * Supplemental oxygen to maintain a pulse ox of 90%--> patient is showing favorable response. Initially had been requiring 2 to 3 L to keep his pulse ox in the low 90s. As of 06/15, on room air. Will need two-step pulse oximetry prior to discharge * Sputum cultures (which patient has not been able to expectorate) and blood cultures ordered (2) Leukocytosis: Plan: - WBC 14.41 upon arrival - uptrending but clinical improvement noted - patient on high doses of steroids-- likely steroid induced - continue to follow clinically (3) Hypersomnia: Plan: - patient is awake and alert just c/o excessive fatigue - likely related to infectious process - VBG done to ensure no acute hypercapnia. Although COD 61, pH is normal at 7.37--> indicative of chronic hypercapnia. - Patient is complaining of fatigue but no longer appears to have hypersomnia. Overall improved (4) Hypoxia: Plan: See above presented with pulse ox of 88% on RA This has overall resolved and patient is no longer requiring supplemental oxygen (5) Acute exacerbation of chronic obstructive pulmonary disease (COPD): Plan: -Continue steroids, aggressive pulmonary toilet, and mucolytic agents as outlined above (6) Chronic gout: Plan: Continue allopurinol 300 mg daily (7) Type 2 diabetes mellitus without complication: Plan: continue SS coverage and nightly lantus. Blood sugars improving with de-esc alation of steroids Hold liraglutide while in house but will continue his metformin, januvia and pioglitazone A1C 9.6 met with clinical informatics educator this hospital stay-- pt recently placed on Victoza-- PCP to FU on this With significant corticosteroid induced hyperglycemia (8) Hypertension: Plan: Continue aspirin and losartan Hold HCTZ due to hypokalemia Potassium 3.2 in the ED. Supplemented and resolved (9) Hypothyroidism: Plan: Continue levothyroxine 88 mcg daily TSH 2.1 in 01/2021 Plan: Plan of care will be discussed with Dr. Mike. Further orders as warranted. Two-step pulse oximetry in the a.m. plan. Plan for likely discharge tomorrow Admission and Anticipated Discharge Date Admission Date: June 11, 2021 Supervising Physician Co-Signing Physician Notes chart reviewed, case d/w J Zoya PAC. agree w above Subjective Patient seen on daily rounds today. Overall, feeling fatigued but breathing has significantly improved. He denies F/C, CP, SOB, abd pain, N/V. Nursing voices no c.c, Review of Systems Review of Systems: All systems reviewed and are unremarkable except as noted in HPI and below Denies fevers, chills, headache, nasal congestion, sore throat, cough, chest pain, shortness of breath, palpitations, orthopnea, PND, abdominal pain, nausea, vomiting, diarrhea, constipation, dysuria, hematuria, frequency, back pain, joint pain or swelling, easy bruising or bleeding, skin lesions or rashes. Physical Exam Physical Exam: General: Resting comfortably in his bedside. NAD. HEENT: Head is AT/NC buccal mucosa is moist and pink Neck: No JVD. Negative hepatojugular reflex Cardiac: RRR with 1/6 MAIKEL Lungs: Speaking full sentences on ambient air today. No accessory muscle use. Normal respiratory effort. Improved air exchange throughout with mid to end expiratory wheezes. Scattered rhonchi that mobilizes with coughing Abdomen: Normoactive X4. Soft and nontender in all quadrants. Extremities: No peripheral clubbing cyanosis or edema Neuro: A&O X4 cranial nerves II through XII are grossly intact no focal neuro deficits Skin: No obvious skin lesions or rashes Psych: Appropriate affect pleasant and cooperative Results & Data Results & Data ([facility]) Vital Signs (Past 12 Hours) Vital Signs Temp Pulse Pulse Pulse Pulse Pulse Pulse 06/15/21 12:23 95 H 92 H 101 H 91 H 91 H 06/15/21 12:22 91 H 06/15/21 11:31 37.0 C 82 06/15/21 07:44 36.6 C 92 H 06/15/21 07:34 89 06/15/21 04:09 37 C 101 H Resp Resp Resp Resp Resp Resp BP 06/15/21 12:23 20 18 22 16 16 06/15/21 12:22 18 06/15/21 11:31 18 112/70 06/15/21 07:44 20 117/73 06/15/21 07:34 16 06/15/21 04:09 20 130/77 Pulse Ox Pulse Ox Pulse Ox Pulse Ox Pulse Ox Pulse Ox 06/15/21 12:23 88 L 91 86 L 91 91 06/15/21 12:22 91 06/15/21 11:31 92 06/15/21 07:44 90 06/15/21 07:34 91 06/15/21 04:09 90 Laboratory Results 06/15/21 07:03 06/15/21 07:03 PG Care Time/CCT Total # of Minutes Spent Total Time Spent with Patient: Total time spent is greater than 50% in coordination of care (as documented) at patient's floor/unit and/or counseling patient: Coding Level of Care Code 07158 Subseq Hosp Care Lvl 2 Diagnoses Bilateral interstitial pneumonia J84.9 Leukocytosis D72.829 Hypersomnia G47.10 Hypoxia R09.02 Chronic gout M1A.9XX0 Type 2 diabetes mellitus without complication E11.9 Hypertension I10 Hypothyroidism E03.9 Acute exacerbation of chronic obstructive pulmonary disease (COPD) J44.1
[2021-06-15] MEDS: cefTRIAXone SODIUM 2,000 MG in DEXTROSE 5% 50 ML IV SCH (17:00)
[2021-06-15] MEDS: AZITHROMYCIN 500 MG in DEXTROSE 5% 250 ML IV SCH (20:23)
[2021-06-15] MEDS: INSULIN GLARGINE SOLOSTAR 100 UNITS/ML 3 ML PEN SC SCH (20:28)
[2021-06-15] MEDS: ENOXAPARIN INJ 40 MG/0.4 ML SYR SQ SCH (20:28)
[2021-06-16 05:49] LABS: Hematocrit (blood only) 40.2 % (42-52); Mean Corpuscular Hgb Conc 32.3 g/dL (32-36); Mean Corpuscular Volume 92.6 fL (80-100); Mean Platelet Volume 9.6 fL (7.4-10.4); Platelet Count 360 K/uL (130-400); RDW Coefficient of Variation 13.4 % (11.5-14.5); RDW Standard Deviation 45.4 fL (36.4-46.3); Red Blood Count 4.34 M/uL (4.7-6.1); White Blood Count 15.25 K/uL (4.8-10.8)
[2021-06-16] MEDS: LEVOTHYROXINE SODIUM 88 MCG TABLET PO SCH (05:54)
[2021-06-16 06:10] LABS: BUN Creatinine Ratio 30.4 (10-20); Creatinine Clr Calc Pharmacy 81.2 ml/min; Est GFR (Non-African American) 86.3 ml/min; Potassium 3.9 mmol/L (3.5-5.1)
[2021-06-16] MEDS: SITagliptin PHOSPHATE 100 MG TAB PO SCH (08:48)
[2021-06-16] MEDS: ASPIRIN 81 MG ECTAB PO SCH (08:48)
[2021-06-16] MEDS: LOSARTAN POTASSIUM 50 MG TAB PO SCH (08:48)
[2021-06-16] MEDS: predniSONE 20 MG TAB PO SCH (08:48)
[2021-06-16] MEDS: allopurinoL 300 MG TAB PO SCH (08:48)
[2021-06-16] MEDS: ATORVASTATIN 20 MG TAB PO SCH (08:48)
[2021-06-16] MEDS: PIOGLITAZONE HCL 15 MG TAB PO SCH (08:48)
[2021-06-16] MEDS: metFORMIN HCL ER 500 MG TABCR PO SCH ×2 (08:48→17:05)
[2021-06-16] MEDS: guaiFENesin 600 MG TABCR PO SCH ×2 (08:48→20:16)
[2021-06-16] MEDS: INSULIN ASPART PER UNIT SC SCH ×4 (08:51→20:18)
[2021-06-16] MEDS: BUDESONIDE 0.5 MG/2 ML VIAL (PULMICORT) NEB SCH ×2 (08:58→19:51)
[2021-06-16] MEDS: ALBUT/IPRATROP 3MG/0.5MG NEB 3 ML VIAL NEB SCH ×2 (08:58→13:24)
[2021-06-16] MEDS: FORMOTEROL 20 MCG/2 ML VIAL NEB SCH ×2 (08:58→19:51)
[2021-06-16] MEDS ORDERED: ALBUT/IPRATROP 3MG/0.5MG NEB 3 ML VIAL NEB PRN (11:23)
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
[2021-06-16] MEDS: levoFLOXacin 750 MG TAB PO SCH (12:23)
[2021-06-16] MEDS: ENOXAPARIN INJ 40 MG/0.4 ML SYR SQ SCH (20:17)
[2021-06-16] MEDS: INSULIN GLARGINE SOLOSTAR 100 UNITS/ML 3 ML PEN SC SCH (20:19)
[2021-06-17] MEDS: LEVOTHYROXINE SODIUM 88 MCG TABLET PO SCH (06:02)
[2021-06-17] MEDS: BUDESONIDE 0.5 MG/2 ML VIAL (PULMICORT) NEB SCH (07:03)
[2021-06-17] MEDS: FORMOTEROL 20 MCG/2 ML VIAL NEB SCH (07:04)
[2021-06-17 07:23] LABS: Hematocrit (blood only) 40.5 % (42-52); Mean Corpuscular Hgb Conc 32.1 g/dL (32-36); Mean Corpuscular Volume 93.5 fL (80-100); Mean Platelet Volume 9.5 fL (7.4-10.4); Nucleated RBC # (auto) 0.02 K/uL (0-0); Nucleated RBC % (auto) 0.1 %; Platelet Count 359 K/uL (130-400); RDW Coefficient of Variation 13.5 % (11.5-14.5); RDW Standard Deviation 46.7 fL (36.4-46.3); Red Blood Count 4.33 M/uL (4.7-6.1); White Blood Count 16.16 K/uL (4.8-10.8)
[2021-06-17 07:40] LABS: BUN Creatinine Ratio 26.2 (10-20); Creatinine Clr Calc Pharmacy 73.6 ml/min; Est GFR (African American) 96.1 ml/min; Est GFR (Non-African American) 82.9 ml/min; Potassium 3.8 mmol/L (3.5-5.1)
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
[2021-06-17 07:57] LABS: Basophils # (auto) 0.03 K/uL (0-0.2); Basophils % (auto) 0.2 %; Eosinophils # (auto) 0.03 K/uL (0-0.5); Eosinophils % (auto) 0.2 %; Immature Granulocytes # (auto) 0.71 K/uL (0.00-0.02); Immature Granulocytes % (auto) 4.4 %; Lymphocytes % (auto) 18.6 %; Monocytes # (auto) 1.23 K/uL (0.11-0.59); Monocytes % (auto) 7.6 %; Neutrophils # (auto) 11.16 K/uL (1.4-6.5)
[2021-06-17] MEDS: INSULIN ASPART PER UNIT SC SCH ×2 (08:44→12:28)
[2021-06-17] MEDS: LOSARTAN POTASSIUM 50 MG TAB PO SCH (08:45)
[2021-06-17] MEDS: ATORVASTATIN 20 MG TAB PO SCH (08:45)
[2021-06-17] MEDS: guaiFENesin 600 MG TABCR PO SCH (08:46)
[2021-06-17] MEDS: ASPIRIN 81 MG ECTAB PO SCH (08:48)
[2021-06-17] MEDS: PIOGLITAZONE HCL 15 MG TAB PO SCH (08:48)
[2021-06-17] MEDS: metFORMIN HCL ER 500 MG TABCR PO SCH (08:48)
[2021-06-17] MEDS: SITagliptin PHOSPHATE 100 MG TAB PO SCH (08:50)
[2021-06-17] MEDS ORDERED: predniSONE 20 MG TAB PO SCH (09:00)
[2021-06-17] MEDS: levoFLOXacin 750 MG TAB PO SCH (12:23)
[2021-06-17] MEDS ORDERED: Flu Vaccine-High Dose (Fluzone-HD) PF 65+ 0.7mL SYR IM ONE (12:30)
--- NOTE | 2021-06-17 13:22 | Discharge Summary ---
Date of Service June 17, 2021 Admission HPI Per Admitting Provider The patient is a 76-year-old male with a past medical history including COPD, morbid obesity, chronic gout, diabetes mellitus type 2, chronic sinusitis, frequent PVCs, hypertension, hypothyroidism, tobacco use, and hyperlipidemia. The patient presents with symptoms as noted above. He has been using his inhalers as directed. Principal Diagnosis Bilateral interstitial pneumonia, COPD exacerbation Discharge Exam General: Well appearing, sitting on side of bed comfortably, no acute distress CV: Normal rate, regular rhythm. No murmurs. Resp: Breathing comfortably on NC O2. Normal work of breathing. Coarse lung sounds bilaterally. No crackles or wheezes Abd: Soft, nontender, nondistended. Active bowel sounds Ext: Warm, well perfused. No edema Discharge Data Allergies Allergy/AdvReac Type Severity Reaction Status Date / Time No Known Allergies Allergy Mild Verified 06/11/21 17:47 Consultations 06/11/21 18:30 ED Decision to Admit Stat Ordered Studies 06/11/21 16:51 CT angio chest PE protocol Stat Diabetes Follow up Diabetes Follow-up Needed for HgbA1c >9% Hospital Course (1) Bilateral interstitial pneumonia: History of COPD/Emphysema, GOLD C. Active tobacco smoking. Recent COPD exacerbation requiring ED care 05/2021 treated w/ Augmentin + Azit hro & Prednisone Admitted 06/11 w/ leukocytosis, hypoxia, dyspnea. Bilateral interstitial pneumonia on imaging COVID negative x 2 Treated w/ antibiotics (ctx/azithro then levaquin) & steroids - Continue levofloxacin on discharge to complete 10d course (last dose 06/19) - Complete prednisone taper (40mg daily x 4 days, 20mg daily x 4 days, 10mg daily x 4 days, then stop) - Continue home inhaler therapies: Dulera BID + tiotropium daily + albuterol inh or duonebs PRN - Persistent hypoxia requiring supplemental O2 on discharge (1LPM at rest, 3LPM w/ exertion). Goal SpO2 88-92% - Encouraged complete smoking cessation - PCP & Pulm follow up outpatient (2) Acute exacerbation of chronic obstructive pulmonary disease (COPD): See above (3) Hypoxia: See above (4) Tobacco use: See above (5) Leukocytosis: See above Persistent leukocytosis due to steroids (6) Type 2 diabetes mellitus without complication: Uncontrolled. Elevated glucose during admission in s/o steroid use controlled w/ insulin (required 26U daily total insulin) Homegoing regimen: Metformin ER 1000mg BID, Pioglitazone 45mg daily, Liraglutide 0.6mg daily for 1 week then increase to 1.2mg daily. (Stop Sitagliptin 100mg d aily) - PCP f/u for further monitoring & medication regimen modification (7) Chronic gout: Well controlled w/ urate <6 off allopurinol - continue off allopurinol (8) Hypertension: Continue losartan 100mg daily & HCTZ 25mg daily (9) Hypothyroidism: Continue 88mcg levothyroxine daily Total Time Total Time Spent Total Time Spent (In Minutes): 25minutes Discharge Plan Discharge Items Patient Disposition: Home - Self-Care Reason For Visit: BIBASILAR BACTERIAL PNEUMONIA WITH HYPOXIA Discharge Diagnosis: Pneumonia & COPD Exacerbation Condition on Discharge: Good Goals: STOP smoking completely Activity: Resume your previous activity Non-emergency contact: Primary Care Provider Call non-emergency contact if: you have any medication questions and your symptoms worsen Follow-up/Referrals: Kimberlee Syed MD [Primary Care Provider] - 06/21/21 2:00 pm Diet: Carb Consistent or DM2 Addtl Attending Provider Instructions: COPD - Complete 2 more days of antibiotics (Levofloxacin) (Last dose 06/19/21) - Complete prednisone (steroid) taper: Take two 20mg tabs daily 06/18-06/20 then take one 20mg tab daily 06/21-06/24. Then take 1/2 of a 20mg tab daily 06/24-06/28. Then stop. - When you go home, you will be on 1L oxygen at rest and 2L oxygen when you exert yourself. At follow up visits we will try to see if we can wean you off of this. - Continue to use your inhalers: Dulera (mometasone formoterol) twice daily Tiotropium once daily Duonebs (ipratropium albuterol nebulizers) or albuterol inhaler as needed for shortness of breath, cough, wheezing - It is very important to quit smoking completely. Let us know if there is anything we can do to support you in this. - If you notice worsening shortness of breath or cough or wheezing that is not improving with inhalers/nebulizers above, call your PCP office right away. Kimberlee Syed MD [facility] Internal Medicine [phone] Diabetes - Continue metformin 1000mg twice daily and pioglitazone 45mg daily - START the new injectable medicine (liraglutide AKA Victoza) once daily. Inject 0.6mg subcutaneously once daily x 7 days; then 1.2mg daily. If you have any questions about how to use this, please call our internal medicine office (as above) and we can help you. - STOP sitagliptin (Januvia) - Monitor blood sugars twice daily and record numbers Pending Studies at Discharge: No Stand-Alone Forms: My [facility], Smoking Cessation Medications and DC Order Prescriptions: New levofloxacin 750 mg Tablet 750 mg PO DAILY@1100 2 Days Qty: 2 RF: 0 prednisone 20 mg Tablet 40 mg PO DAILY Qty: 12 RF: 0 Continued levothyroxine 88 mcg tablet 88 mcg PO DAILY Qty: 90 RF: 0 ipratropium-albuterol 0.5 mg-3 mg(2.5 mg base)/3 mL solution for nebulization 3 ml inhalation Q4H PRN (Reason: shortness of breath or wheezing) Qty: 180 RF: 1 tiotropium bromide 2.5 mcg/actuation mist 2 puff inhalation DAILY Qty: 1 RF: 11 albuterol sulfate 90 mcg/actuation HFA aerosol inhaler 1 inh inhalation QID PRN (Reason: shortness of breath or wheezing) Qty: 18 RF: 0 metformin 1,000 mg tablet extended release 24hr 1,000 mg PO BID Qty: 180 RF: 3 atorvastatin 20 mg tablet 20 mg PO DAILY Qty: 90 RF: 3 hydrochlorothiazide 25 mg tablet 25 mg PO DAILY Qty: 90 RF: 3 Dulera 200-5 mcg/actuation HFA aerosol inhaler 2 puff inhalation BID RF: 0 pioglitazone 45 mg tablet 45 mg PO DAILY RF: 0 losartan 100 mg tablet 100 mg PO DAILY RF: 0 aspirin 81 mg Tablet,Delayed Release (Dr/Ec) 81 mg PO DAILY RF: 0 Changed liraglutide 0.6 mg/0.1 mL (18 mg/3 mL) pen injector See Rx Instructions subcut .COMPLEX Qty: 9 RF: 3 Discontinued allopurinol 300 mg tablet 300 mg PO QAM Qty: 90 RF: 0 Januvia 100 mg tablet 100 mg PO DAILY RF: 0 Discharge Orders: Discharge Order (Routine); Ordered 06/17/21 Ordered By: Kimberlee Sandoval/Other Patient Handouts: COPD Diabetes, High Blood Sugar (Hyperglycemia), Hypoglycemia (Low Blood Sugar), COPD Quit Smoking, COPD: Using Inhalers, COPD Meds Admission Data Admit Date/Time: 06/11/21 20:21 Attending Provider: Kimberlee Syed Admit Provider: Jayme Obrien Primary Care Provider: Kimberlee Syed Other Providers: Jayme Obrien ; Tim Mike Other Interventions: Discharge Summary Assessment (RN) Last Done: 06/17/21 14:10 Coding Level of Care Code D/C DAY MANAGEMENT <30 MINS Diagnoses Bilateral interstitial pneumonia J84.9 Leukocytosis D72.829 Hypoxia R09.02 Acute exacerbation of chronic obstructive pulmonary disease (COPD) J44.1 Chronic gout [id number].[id number] Type 2 diabetes mellitus without complication E11.9 Hypertension I10 Hypothyroidism E03.9 Tobacco use Z72.0
== END 2021-06-17 15:45 | disposition home or self-care (01) | DRG 197 ==
LOC: ED 15:10 → SUATTDRO 20:21 → EDINP 20:21 → 2N 06-12 15:40 → 3W 06-16 21:58

== ENCOUNTER 2021-09-22 22:01 | Inpatient (IN) ==
[2021-09-22] MEDS ORDERED: methylPREDNISolone 125 MG/2 ML VIAL IV STA (22:11)
[2021-09-22] MEDS ORDERED: ALBUT/IPRATROP 3MG/0.5MG NEB 3 ML VIAL NEB ONE (22:11)
[2021-09-22] MEDS ORDERED: guaiFENesin 600 MG TABCR PO STA (22:11)
[2021-09-22] MEDS ORDERED: SODIUM CHLORIDE 0.9% 1000ML 1,000 ML IV ONE (22:12)
[2021-09-22 23:02] LABS: Hematocrit (blood only) 46.7 % (42-52); Hemoglobin 15.9 g/dL (14.0-18.0); Mean Platelet Volume 10.1 fL (7.4-10.4); Platelet Count 348 K/uL (130-400); RDW Coefficient of Variation 14.9 % (11.5-14.5); RDW Standard Deviation 50.2 fL (36.4-46.3); Red Blood Count 5.13 M/uL (4.7-6.1); White Blood Count 23.77 K/uL (4.8-10.8)
[2021-09-22 23:11] LABS: INR 1.1 (0.9-1.1); Prothrombin Time 11.5 Seconds (9.0-12.0)
[2021-09-22 23:23] LABS: Basophils # (auto) 0.03 K/uL (0-0.2); Basophils % (auto) 0.1 %; Immature Granulocytes # (auto) 0.16 K/uL (0.00-0.02); Immature Granulocytes % (auto) 0.7 %; Lymphocytes % (auto) 3.8 %; Monocytes # (auto) 1.52 K/uL (0.11-0.59); Monocytes % (auto) 6.4 %; Neutrophils # (auto) 21.16 K/uL (1.4-6.5)
[2021-09-22 23:26] LABS: Alanine Aminotransferase 10 U/L (7-52); Albumin Globulin Ratio 1.4 (0.9-2); Albumin Level 4.4 gm/dl (3.4-5.0); Alkaline Phosphatase 58 U/L (34-104); Anion Gap 12 (3-11); Aspartate Aminotransferase 11 U/L (13-39); BUN Creatinine Ratio 21.4 (10-20); Bilirubin,Total 1.2 mg/dl (0.2-1.0); Blood Urea Nitrogen 18 mg/dl (6-23); Calcium 10.1 mg/dl (8.5-10.1); Carbon Dioxide 26 mmol/L (21-32); Chloride 97 mmol/L (98-107); Est GFR (African American) 95.8 ml/min; Est GFR (Non-African American) 82.7 ml/min; Globulin 3.1 gm/dl (2.5-4.0); Glucose 157 mg/dl (70-99(Fasting)); Lipase 7 U/L (11-82); Magnesium 1.9 mg/dl (1.7-2.4); Phosphorus 3.3 mg/dl (2.5-4.9); Potassium 3.5 mmol/L (3.5-5.1); Sodium 135 mmol/L (136-145); Total Protein 7.5 gm/dl (6.0-8.3)
[2021-09-22 23:28] LABS: Troponin I High Sensitivity 15.7 pg/ml (0-20)
[2021-09-22 23:37] LABS: Influenza A virus by PCR Negative (Neg); Influenza B virus by PCR Negative (Neg); RSV by PCR Negative (Neg); SARS CoV2 RNA(COVID-19) InHosp NEGATIVE (Negative)
[2021-09-23] MEDS ORDERED: PIPERACILLIN/TAZOBACTAM 4.5 GM/120 ML BAG IV ONE (01:08)
[2021-09-23] MEDS ORDERED: AZITHROMYCIN 500 MG in DEXTROSE 5% 250 ML IV STA (01:08)
[2021-09-23] MEDS ORDERED: PIPERACILL/TAZOBAC CONSULT ACTIVE PRN (01:08)
--- NOTE | 2021-09-23 01:18 | Emergency Department Note ---
Impression & Plan COPD exacerbation, Pneumonia, Hypoxia ED Provider Note NAME: KATHERYN TORREZ JR AGE: 81 SEX: M ARRIVES VIA: Walk-In INFORMANT: Patient. ED PROVIDER(S): René Bowling MD CHIEF COMPLAINT: SOB PLAN: Disposition: Admit MEDICAL DECISION MAKING: The patient is a pleasant 81-year-old gentleman with a past medical history of hypertension, hypothyroidism, tobacco use, COPD with emphysema who presents to emergency department for evaluation of persistent and worsening shortness of breath with cough and thick yellow sputum production over the past couple of days in the setting of his report of having continued cough and congestion shortness of breath since his admission for pneumonia in June. Patient reports he has not been on any antibiotics or steroids recently. He denies nausea, vomiting, diarrhea or urinary symptoms. He reports he has had poor food and fluid intake given he does not feel well. He reports chest tightness but denies discrete chest pain per se. On arrival the patient is uncomfortable, mildly dyspneic but no acute distress, afebrile with heart in the 110s, respiratory rate in the 30s and O2 saturation 88% on room air. On exam the patient appears clinically dry. He has diffuse wheezes bilaterally with prolonged expiratory phase. EKG without overt acute ischemia. Chest x-ray with interstitial thickening and bibasilar opacities that are suspicious for pneumonia, does appear similar to prior chest x-ray when he was admitted for pneumonia. WBC 23.7K with left shift. H/H and platelets within normal limits. Chemistry without metabolic acidosis. Lactic acid 1.7, within normal limits. Electrolytes and LFTs without significant abnormality. Initial high-sensitivity troponin 15.7, within normal limits. Procalcitonin is not significantly elevated at 0.34, within normal limits. Covid-19 PCR negative. Influenza and RSV PCR negative. Upon reevaluation the patient did appear improved following IV fluid hydration, Solu-Medrol, guaifenesin, hour-long continuous DuoNeb. However his O2 saturation did remain at 87% on room air and so was placed on 2 L nasal cannula. Given the patient's hypoxia in setting of suspected pneumonia patient does agree with plan for admission. Zosyn and Azithromycin ordered. BP stable, no indication for 30cc/kg IVF. Case was discussed with Dr. Obrien, [facility] hospitalist, who will evaluate the patient for admission. Triage Nursing notes reviewed and agree them. Prior medical records reviewed Vital Signs: reviewed and remarkable for tachycardia, hypoxia, tachypnea. Differential diagnosis: Reactive airway disease, pneumonia, pneumothorax, COPD, CHF, infections, cardiac ischemia, pulmonary embolism, musculoskeletal, gastrointestinal, as well as other pathologies. ER treatment provided: See below. Diagnostics interpreted by me: ECG: Sinus rhythm with sinus arrhythmia with first-degree AV block, 98 bpm, no overt ST elevation or depression, QTC 449, QRS 98. Cardiac Monitoring: An order for continuous cardiac monitoring was placed and demonstrated Sinus rhythm, 98 bpm, no ectopy. Laboratory studies: See below Imaging studies: See below Consultation(s): Case was discussed with Dr. Obrien, [facility] hospitalist, who will evaluate the patient for admission. HPI: The patient is a pleasant 81-year-old gentleman with a past medical history of hypertension, hypothyroidism, tobacco use, COPD with emphysema who presents to emergency department for evaluation of persistent and worsening shortness of breath with cough and thick yellow sputum production over the past couple of days in the setting of his report of having continued cough and congestion shortness of breath since his admission for pneumonia in June. Patient reports he has not been on any antibiotics or steroids recently. He denies nausea, vomiting, diarrhea or urinary symptoms. He reports he has had poor food and fluid intake given he does not feel well. He reports chest tightness but denies discrete chest pain per se. ROS: See above HPI for pertinent positives & negatives. A total of 10 systems reviewed and were otherwise negative. VITALS:See Below PHYSICAL EXAMINATION: GENERAL: Awake, alert, uncomfortable-appearing, in no distress HENT: Normocephalic, atraumatic. Oropharynx unremarkable. EYES: Normal conjunctiva. Sclera non-icteric. NECK: Supple. No nuchal rigidity. FROM. No JVD. RESPIRATORY: Wheezes bilaterally with prolonged expiratory phase. Mild increased work of breathing but no acute distress CARDIAC: Tachycardic rate, normal rhythm. Extremities warm and well perfused. Pulses equal. ABDOMEN: Soft, non-distended. No tenderness to palpation. No rebound or guarding. No masses. RECTAL: Deferred. MUSCULOSKELETAL: Chest examination reveals no tenderness. The back is symmetrical on inspection without obvious abnormality. There is no CVA tenderness to palpation. No joint edema. LOWER EXTREMITIES: Calves are equal size bilaterally and non-tender. No edema. No discoloration. NEURO: Normal sensorium. No sensory or motor deficits noted. SKIN: No rash or jaundice noted. ED COURSE: Critical Care: I have personally spent greater than 35 minutes of critical care time in the direct management of this patient. This includes bedside care, interpretation of diagnostic studies, and testing, discussion with consultants, patient, and family members, and other required patient management activities. This 35 minutes is in excess of all separately billable procedures. René Bowling MD Past Med/Surg History Medical History (Updated 09/23/21 @ 05:50 by René Bowling MD) Acquired deviated nasal septum Actinic keratosis Chronic diarrhea COPD (chronic obstructive pulmonary disease) case management patient COPD with emphysema Hypersomnolence Incidental lung nodule, > 3mm and < 8mm Obesity (BMI 30.0-34.9) Type 2 diabetes mellitus without complication Surgical History History of appendectomy History of bilateral cataract extraction History of colonoscopy History of Mohs micrographic surgery for skin cancer x3 History of tonsillectomy History of wisdom tooth extraction Hx of vasectomy Family History Other No family history of adverse response to anesthesia Denies family history of Ovarian cancer Prostate cancer Myocardial infarction Breast cancer Colorectal cancer Social History Smoking Status: Current every day smoker Tobacco Type: Cigarettes Cigarettes Per Day: 1/2 pack; Second Hand Exposure: No; Hx Alcohol Use: No Hx Substance Use: No Preferred Language: Serbian Communication Ability: Effective Visual Impairment: No Limitations Hearing Ability: Normal Phytopathology Teacher Required: No Beliefs That Will Affect Care: None marital status: Legally Current Living Situation: Alone current occupational status: retired Feels Safe at Home: Yes Safety Concerns: Feels Safe At This Time Dental Care, Regularly: Yes Physical Activity Frequency: 1-2 Times per Week Seatbelt Use: always Sunscreen Use: No Assistive Devices: Glasses Allergies Allergies Allergy/AdvReac Type Severity Reaction Status Date / Time No Known Allergies Allergy Mild Verified 09/23/21 02:06 Home Meds Home Medications Medication Instructions Recorded Confirmed aspirin 81 mg tablet,delayed 81 mg PO DAILY 05/14/21 09/23/21 release Previous Rx's Medication Instructions Recorded albuterol sulfate 90 mcg/actuation 1 inh INHALATION QID PRN #18 g 04/11/20 aerosol inhaler tiotropium bromide 2.5 2 puff INHALATION DAILY #1 inhaler 06/04/21 mcg/actuation mist for inhalation liraglutide 0.6 mg/0.1 mL (18 mg/3 See Rx Instructions SUBCUT 06/17/21 mL) subcutaneous pen injector .COMPLEX #9 ml pen needle, diabetic 32 gauge x #100 ea 06/21/2106/11" (Novofine 32) mometasone-formoterol HFA 200 2 puff INHALATION BID #13 g 07/04/21 mcg-5 mcg/actuation aerosol inhaler (Dulera) atorvastatin 20 mg tablet 20 mg PO DAILY #90 tab 07/22/21 empagliflozin 25 mg tablet 25 mg PO DAILY #90 tab 07/22/21 hydrochlorothiazide 25 mg tablet 25 mg PO DAILY #90 tab 07/22/21 levothyroxine 88 mcg tablet 88 mcg PO DAILY #90 tab 07/22/21 losartan 100 mg tablet 100 mg PO DAILY #90 tab 07/22/21 ipratropium 0.5 mg-albuterol 3 mg 3 ml INHALATION Q4H PRN #180 vial 08/12/21 (2.5 mg base)/3 mL nebulization soln metformin 1,000 mg tablet,extended 1,000 mg PO BID #180 tab 08/12/21 release 24hr pioglitazone 45 mg tablet 45 mg PO DAILY #90 tab 08/12/21 blood sugar diagnostic (OneTouch #200 ea 09/17/21 Ultra Test) Results & Data (ED) Vital Signs Vital Signs - 24 hr 09/22/21 22:02 09/22/21 22:56 09/22/21 23:30 Temperature 36.9 C Temperature Source Temporal Artery Scan Pulse Rate 113 H Pulse Rate [Apical] Pulse Rate [Finger] 97 H Pulse Rate from SpO2 Sensor Respiratory Rate 30 H 17 Respiratory Effort / Characteristics Spontaneous Blood Pressure 132/94 Blood Pressure [Right Arm] Blood Pressure Mean 106 Blood Pressure Mean [Right Arm] Pulse Oximetry 88 L 91 99 Oxygen Delivery Method Room Air Room Air Nebulizer Oxygen Flow Rate Fraction of Inspired Oxygen 21 Sepsis Recent Fever Within 48 Hours No Sepsis New/Unexplained Change in Mental Status N/A Sepsis Action Taken by Nursing No Action Required 04/17/22 23:31 09/23/21 00:00 09/23/21 00:44 Temperature Temperature Source Pulse Rate 104 H Pulse Rate [Apical] 106 H Pulse Rate [Finger] Pulse Rate from SpO2 Sensor 104 H Respiratory Rate 24 20 Respiratory Effort / Characteristics Non-Labored Spontaneous Blood Pressure 118/74 Blood Pressure [Right Arm] 109/73 Blood Pressure Mean 88 Blood Pressure Mean [Right Arm] 85 Pulse Oximetry 99 98 87 L Oxygen Delivery Method Nebulizer Nebulizer Room Air Oxygen Flow Rate Fraction of Inspired Oxygen Sepsis Recent Fever Within 48 Hours Sepsis New/Unexplained Change in Mental Status Sepsis Action Taken by Nursing 09/23/21 00:49 09/23/21 01:00 09/23/21 02:24 Temperature Temperature Source Pulse Rate 105 H Pulse Rate [Apical] 104 H Pulse Rate [Finger] Pulse Rate from SpO2 Sensor Respiratory Rate 24 20 Respiratory Effort / Characteristics Blood Pressure 109/63 Blood Pressure [Right Arm] 93/54 L Blood Pressure Mean 78 Blood Pressure Mean [Right Arm] 67 Pulse Oximetry 90 92 92 Oxygen Delivery Method Nasal Cannula Nasal Cannula Nasal Cannula Oxygen Flow Rate 2 3 3 Fraction of Inspired Oxygen Sepsis Recent Fever Within 48 Hours Sepsis New/Unexplained Change in Mental Status Sepsis Action Taken by Nursing 09/23/21 03:00 Temperature Temperature Source Pulse Rate 98 H Pulse Rate [Apical] Pulse Rate [Finger] Pulse Rate from SpO2 Sensor 98 H Respiratory Rate 17 Respiratory Effort / Characteristics Blood Pressure 101/61 Blood Pressure [Right Arm] Blood Pressure Mean 74 Blood Pressure Mean [Right Arm] Pulse Oximetry 95 Oxygen Delivery Method Nasal Cannula Oxygen Flow Rate 4 Fraction of Inspired Oxygen Sepsis Recent Fever Within 48 Hours Sepsis New/Unexplained Change in Mental Status Sepsis Action Taken by Nursing Laboratory Data Attestation: I reviewed the patient's lab results. Result diagrams: 09/23/21 05:06 09/22/21 22:47 Lab Results 09/22/21 09/22/21 09/22/21 Range/Units 22:47 22:47 22:47 WBC 23.77 H (4.8-10.8) K/uL RBC 5.13 (4.7-6.1) M/uL Hgb 15.9 (14.0-18.0) g/dL Hct 46.7 (42-52) % MCV 91.0 (80-100) fL MCH 31.0 (25-34) pg MCHC 34.0 (32-36) g/dL RDW Std Deviation 50.2 H (36.4-46.3) fL RDW Coeff of Samantha 14.9 H (11.5-14.5) % Plt Count 348 (130-400) K/uL MPV 10.1 (7.4-10.4) fL Immature Gran % (Auto) 0.7 % Neut % (Auto) 89.0 % Lymph % (Auto) 3.8 % [place] % (Auto) 6.4 % Eos % (Auto) 0.0 % Baso % (Auto) 0.1 % Neut # (Auto) 21.16 H (1.4-6.5) K/uL Lymph # (Auto) 0.90 L (1.2-3.4) K/uL [place] # (Auto) 1.52 H (0.11-0.59) K/uL Eos # (Auto) 0.00 (0-0.5) K/uL Baso # (Auto) 0.03 (0-0.2) K/uL Immature Gran # (Auto) 0.16 H (0.00-0.02) K/uL PT 11.5 (9.0-12.0) Seconds INR 1.1 (0.9-1.1) Sodium 135 L (136-145) mmol/L Potassium 3.5 (3.5-5.1) mmol/L Chloride 97 L (98-107) mmol/L Carbon Dioxide 26 (21-32) mmol/L Anion Gap 12 H (3-11) BUN 18 (6-23) mg/dl Creatinine 0.84 (0.6-1.4) mg/dl Est Cr Clr Drug Dosing Not Reportable Est GFR ( Amer) 95.8 ml/min Est GFR (Non-Af Amer) 82.7 ml/min BUN/Creatinine Ratio 21.4 H (10-20) Glucose 157 H (70-99(Fasting)) mg/dl Lactate (0.4-2.0) mmol/L Calcium 10.1 (8.5-10.1) mg/dl Phosphorus 3.3 (2.5-4.9) mg/dl Magnesium 1.9 (1.7-2.4) mg/dl Total Bilirubin 1.2 H (0.2-1.0) mg/dl AST 11 L (13-39) U/L ALT 10 (7-52) U/L Alkaline Phosphatase 58 (34-104) U/L Troponin I High Sens 15.7 (0-20) pg/ml Total Protein 7.5 (6.0-8.3) gm/dl Albumin 4.4 (3.4-5.0) gm/dl Globulin 3.1 (2.5-4.0) gm/dl Albumin/Globulin Ratio 1.4 (0.9-2) Lipase 7 L (11-82) U/L Procalcitonin (0-0.5) ng/ml SARS-CoV-2 (PCR) (Negative) Influenza Type A (PCR) (Neg) Influenza Type B (PCR) (Neg) RSV (RT-PCR) (Neg) 09/22/21 09/22/21 09/22/21 Range/Units 22:47 22:47 23:40 WBC (4.8-10.8) K/uL RBC (4.7-6.1) M/uL Hgb (14.0-18.0) g/dL Hct (42-52) % MCV (80-100) fL MCH (25-34) pg MCHC (32-36) g/dL RDW Std Deviation (36.4-46.3) fL RDW Coeff of Samantha (11.5-14.5) % Plt Count (130-400) K/uL MPV (7.4-10.4) fL Immature Gran % (Auto) % Neut % (Auto) % Lymph % (Auto) % [place] % (Auto) % Eos % (Auto) % Baso % (Auto) % Neut # (Auto) (1.4-6.5) K/uL Lymph # (Auto) (1.2-3.4) K/uL [place] # (Auto) (0.11-0.59) K/uL Eos # (Auto) (0-0.5) K/uL Baso # (Auto) (0-0.2) K/uL Immature Gran # (Auto) (0.00-0.02) K/uL PT (9.0-12.0) Seconds INR (0.9-1.1) Sodium (136-145) mmol/L Potassium (3.5-5.1) mmol/L Chloride (98-107) mmol/L Carbon Dioxide (21-32) mmol/L Anion Gap (3-11) BUN (6-23) mg/dl Creatinine (0.6-1.4) mg/dl Est Cr Clr Drug Dosing Est GFR ( Amer) ml/min Est GFR (Non-Af Amer) ml/min BUN/Creatinine Ratio (10-20) Glucose (70-99(Fasting)) mg/dl Lactate 1.7 (0.4-2.0) mmol/L Calcium (8.5-10.1) mg/dl Phosphorus (2.5-4.9) mg/dl Magnesium (1.7-2.4) mg/dl Total Bilirubin (0.2-1.0) mg/dl AST (13-39) U/L ALT (7-52) U/L Alkaline Phosphatase (34-104) U/L Troponin I High Sens (0-20) pg/ml Total Protein (6.0-8.3) gm/dl Albumin (3.4-5.0) gm/dl Globulin (2.5-4.0) gm/dl Albumin/Globulin Ratio (0.9-2) Lipase (11-82) U/L Procalcitonin 0.34 (0-0.5) ng/ml SARS-CoV-2 (PCR) NEGATIVE (Negative) Influenza Type A (PCR) Negative (Neg) Influenza Type B (PCR) Negative (Neg) RSV (RT-PCR) Negative (Neg) Administered Medications Sodium Chloride (Nss 1000ml) 1,000 mls @ 125 mls/hr IV .Q8H AURELIO Stop: 10/23/21 01:29 Last Admin: 09/23/21 01:44 Dose: 125 mls/hr Documented by: [id number] Discontinued Medications Albuterol (Albut/Ipratrop 3mg/0.5mg Neb 3 Ml Vial) 12 ml NEB ONE ONE; Protocol Stop: 09/22/21 22:12 Last Admin: 09/22/21 22:55 Dose: 12 ml Documented by: [id number] Guaifenesin (Guaifenesin 600 Mg Tabcr) 600 mg PO NOW STA Stop: 09/22/21 22:12 Last Admin: 09/22/21 22:35 Dose: 600 mg Documented by: [id number] Sodium Chloride (Nss 1000ml) 1,000 mls @ 999 mls/hr IV .Q1H1M ONE Stop: 09/22/21 23:12 Last Infusion: 09/23/21 00:11 Dose: 0 mls/hr Documented by: [id number] Admin: 09/22/21 23:26 Dose: 999 mls/hr Documented by: [id number] Azithromycin 500 mg/ Dextrose 255 mls @ 127.5 mls/hr IV NOW STA Stop: 09/23/21 03:07 Last Infusion: 09/23/21 03:32 Dose: 0 mls/hr Documented by: [id number] Admin: 09/23/21 01:45 Dose: 127.5 mls/hr Documented by: [id number] Piperacillin Sod/Tazobactam Sod (Zosyn) 4.5 gm in 120 mls @ 240 mls/hr IV NOW ONE Stop: 09/23/21 01:37 Last Infusion: 09/23/21 01:48 Dose: 0 mls/hr Documented by: [id number] Admin: 09/23/21 01:18 Dose: 240 mls/hr Documented by: [id number] Methylprednisolone (Methylprednisolone 125 Mg/2 Ml Vial) 125 mg IV NOW STA Stop: 09/22/21 22:12 Last Admin: 09/22/21 22:35 Dose: 125 mg Documented by: [id number] Discharge Plan Visit Data Chief Complaint: Shortness of Breath/Dyspnea Stated Complaint: COUGH, SOB, ED Provider: René Bowling Discharge Problem: COPD exacerbation, Pneumonia, Hypoxia Patient Disposition: Admitted As Inpatient Discharge Instructions Interventions: ED Discharge Assessment Last Done: 09/23/21 04:10 Discharge Problem: Pneumonia Qualifiers: Pneumonia type: due to unspecified organism Laterality: bilateral Lung location: lower lobe of lung Qualified Code(s): J18.9 - Pneumonia, unspecified organism
[2021-09-23] MEDS: SODIUM CHLORIDE 0.9% 1000ML 1,000 ML IV SCH ×3 (01:44→20:21)
--- NOTE | 2021-09-23 02:07 | History & Physical Report ---
Date of Service September 23, 2021 Assessment & Plan (1) COPD exacerbation: Plan: 81 year old male w/ COPD, DM2, HTN, hypothyroidism, and tobacco use disorder who presents w/ COPD exacerbation, w/ 2 days on 2 months of worsening dyspnea and sputum. - considered pneumonia on differential, reviewed cxr - leukocytosis of 23.77 noted w/ no recent steroid use. - ordered blood and sputum cultures - will continue course of IV zosyn and IV azithro started in ED; reviewed chart history; has had multiple recent copd exacerbation stays, most recently 05/2021 and 06/2021. - patient did wean off the 1L at rest, 3L w/ exertion O2 that he was rx'd after last admission, but it appears his dyspnea symptoms never fully resolved - as such will cover pseudomonas - s/p 125 IV methylpred. follow w/ methylpred 40 q8 - duonebs and pulmcort respules - mucinex q12 - incentive spirom. flutter valve - titrate O2 goal of 90% (2) Type 2 diabetes mellitus without complication: Plan: - basal, bolus regimen while inpatient - check a1c in AM (3) Hypothyroidism: Plan: - continue home levothyroxine (4) Tobacco use: Plan: - nicotine patch ordered - [employer] - w/ reported wt loss, malignancy screening as outpatient advised. wt loss may be 2/2 generalized deconditioning and recent hospitalizations as well (5) Hypertension: Plan: - holding home regimen for slightly soft bp 93/61. resume when appropriate (6) COPD with emphysema: Plan: - holding home regimen - duonebs and pulmcort respules while inpatient Plan: FEN/GI: DM2 diet ppx: lovenox code: full dispo: med tele History of Present Illness Chief Complaint: shortness of breath Primary Care Provider: Kimberlee Syed MD 81 year old male w/ COPD, DM2, HTN, hypothyroidism, and tobacco use disorder who presents w/ worsening shortness of breath and productive cough of green yellow sputum x 2 month. No hemoptysis. He came in today because he had worsened symptoms x 2 days. Denies fever. Denies chest pain. Dyspnea on exertion mostly. Slightly orthopneic. Not pleuritic. No abd or urinary symptoms. Current smoker 0.5 ppd. Denies illicit. Has had Pfizer first booster. Denies hx VTE or [place] or stroke. not on home O2. Denies recent steroid use. He was treated for pneumonia 06/2021. He states his condition never fully recovered. He has had fatigues and 30-40 lb weight loss. No night sweats. ED course: Duoneb. 1L NSS. 125mg IV methylpred. Zosyn and IV azithro. Allergies Allergy/AdvReac Type Severity Reaction Status Date / Time No Known Allergies Allergy Mild Verified 09/23/21 02:06 Home Medications Medication Instructions Recorded Confirmed Type albuterol sulfate 90 mcg/actuation 1 inh INHALATION QID PRN #18 g 04/11/2009/06 Rx aerosol inhaler aspirin 81 mg tablet,delayed 81 mg PO DAILY 05/14/21 09/23/21 History release tiotropium bromide 2.5 2 puff INHALATION DAILY #1 inhaler 06/04/21 09/23/21 Rx mcg/actuation mist for inhalation liraglutide 0.6 mg/0.1 mL (18 mg/3 See Rx Instructions SUBCUT 06/17/21 09/23/21 Rx mL) subcutaneous pen injector .COMPLEX #9 ml pen needle, diabetic 32 gauge x #100 ea 06/21/21 09/23/21 Rx 1/4" (Novofine 32) mometasone-formoterol HFA 200 2 puff INHALATION BID #13 g 07/04/21 09/23/21 Rx mcg-5 mcg/actuation aerosol inhaler (Dulera) atorvastatin 20 mg tablet 20 mg PO DAILY #90 tab 07/22/21 09/23/21 Rx empagliflozin 25 mg tablet 25 mg PO DAILY #90 tab 07/22/21 09/23/21 Rx hydrochlorothiazide 25 mg tablet 25 mg PO DAILY #90 tab 07/22/21 09/23/21 Rx levothyroxine 88 mcg tablet 88 mcg PO DAILY #90 tab 07/22/21 09/23/21 Rx losartan 100 mg tablet 100 mg PO DAILY #90 tab 07/22/21 09/23/21 Rx ipratropium 0.5 mg-albuterol 3 mg 3 ml INHALATION Q4H PRN #180 vial 08/12/21 09/23/21 Rx (2.5 mg base)/3 mL nebulization soln metformin 1,000 mg tablet,extended 1,000 mg PO BID #180 tab 08/12/21 09/23/21 Rx release 24hr pioglitazone 45 mg tablet 45 mg PO DAILY #90 tab 08/12/21 09/23/21 Rx blood sugar diagnostic (RosiTouch #200 ea 09/17/21 09/23/21 Rx Ultra Test) Past Med/Surg History Medical History (Updated 09/23/21 @ 05:50 by René Bowling MD) Acquired deviated nasal septum Actinic keratosis Chronic diarrhea COPD (chronic obstructive pulmonary disease) case management patient COPD with emphysema Hypersomnolence Incidental lung nodule, > 3mm and < 8mm Obesity (BMI 30.0-34.9) Type 2 diabetes mellitus without complication Surgical History History of appendectomy History of bilateral cataract extraction History of colonoscopy History of Mohs micrographic surgery for skin cancer x3 History of tonsillectomy History of wisdom tooth extraction Hx of vasectomy Family History Other No family history of adverse response to anesthesia Denies family history of Ovarian cancer Prostate cancer Myocardial infarction Breast cancer Colorectal cancer Social History Smoking Status: Current every day smoker Tobacco Type: Cigarettes Cigarettes Per Day: 1/2 pack; Second Hand Exposure: No; Hx Alcohol Use: No Hx Substance Use: No Preferred Language: Bengali Communication Ability: Effective Visual Impairment: No Limitations Hearing Ability: Normal Flight Operation Coordinator Required: No Beliefs That Will Affect Care: None marital status: Legally Current Living Situation: Alone current occupational status: retired Feels Safe at Home: Yes Safety Concerns: Feels Safe At This Time Dental Care, Regularly: Yes Physical Activity Frequency: 1-2 Times per Week Seatbelt Use: always Sunscreen Use: No Assistive Devices: Glasses Review of Systems Review of Systems: All systems reviewed & are unremarkable except as noted in HPI & below Denies sore throat. No diarrhea. Physical Exam Physical Exam: General: Grossly A&O. NAD. Cooperative. HEENT: Atraumatic, normocephalic. EOMI Pulm: Sevrely diminished lungs. Faint expiratory wheezes. Symmetric. No respiratory distress. No accessory muscle use. States breathing improved s/p ED treatments. Cardiac: RRR, -mrg. Radial pulses intact and symmetrical. No LE edema. Abdominal: Nontender, nondistended, soft. Integ: Warm, dry, intact. Flaking skin of shins. Neuro: Strength and sensation of extremities intact. Results & Data Results & Data ([facility]) Vital Signs (Past 12 Hours) Vital Signs Temp Pulse Pulse Pulse Resp BP BP 09/23/21 01:00 105 H 24 109/63 09/23/21 00:49 09/23/21 00:44 09/23/21 00:00 104 H 20 118/74 09/22/21 23:31 106 H 24 109/73 09/22/21 23:30 09/22/21 22:56 97 H 17 09/22/21 22:02 36.9 C 113 H 30 H 132/94 Pulse Ox 09/23/21 01:00 92 09/23/21 00:49 90 09/23/21 00:44 87 L 09/23/21 00:00 98 09/22/21 23:31 99 09/22/21 23:30 99 09/22/21 22:56 91 09/22/21 22:02 88 L Laboratory Results 09/22/21 22:47 09/22/21 22:47 Cardiac Enzymes 09/22/21 Range/Units 22:47 AST 11 L (13-39) U/L Coagulation 09/22/21 Range/Units 22:47 PT 11.5 (9.0-12.0) Seconds CBC 09/22/21 Range/Units 22:47 WBC 23.77 H (4.8-10.8) K/uL RBC 5.13 (4.7-6.1) M/uL Hgb 15.9 (14.0-18.0) g/dL Hct 46.7 (42-52) % Plt Count 348 (130-400) K/uL Neut # (Auto) 21.16 H (1.4-6.5) K/uL Lymph # (Auto) 0.90 L (1.2-3.4) K/uL [place] # (Auto) 1.52 H (0.11-0.59) K/uL Eos # (Auto) 0.00 (0-0.5) K/uL Baso # (Auto) 0.03 (0-0.2) K/uL Comprehensive Metabolic Panel 09/22/21 Range/Units 22:47 Sodium 135 L (136-145) mmol/L Potassium 3.5 (3.5-5.1) mmol/L Chloride 97 L (98-107) mmol/L Carbon Dioxide 26 (21-32) mmol/L BUN 18 (6-23) mg/dl Creatinine 0.84 (0.6-1.4) mg/dl Glucose 157 H (70-99(Fasting)) mg/dl Calcium 10.1 (8.5-10.1) mg/dl AST 11 L (13-39) U/L ALT 10 (7-52) U/L Alkaline Phosphatase 58 (34-104) U/L Total Protein 7.5 (6.0-8.3) gm/dl Albumin 4.4 (3.4-5.0) gm/dl Intake and Output 09/22/21 09/22/21 09/23/21 14:59 22:59 06:59 Intake Total 620 / 620 Balance 620 / 620 Intake: IV 620 / 620 Piperacillin/Tazobactam 4.5 gm 120 / 120 In 120 ml @ 240 mls/hr IV NOW ONE Rx#:[id number] Sodium Chloride 0.9% 1000ML 1, 500 / 500 000 ml @ 999 mls/hr IV .Q1H1M ONE Rx#:[id number] Other: Weight 78.8 kg Weight Measurement Method Chair Scale Patient Weight 09/23/21 06:59 Weight 78.8 kg Diagnostic Findings cxr per my read. severe emphysema. Possible opacities at bases. Similar to 06/2021 cxr. ECG Additional Comments: ecg interpreted by me. nsr 98 w/ 1st deg av block. Normal axis. No significant ST-T changes. Code Status & VTE Plan Code Status full VTE Prophylaxis Plan VTE Prophylaxis will be ordered: Yes Supervising Physician Co-Signing Physician Notes Attending addendum: I have physically seen this patient, have supervised the medical residents activities, and agree with the H&P unless as otherwise noted. Assessment and Plan: COPD exacerbation- Methylprednisolone 40 mg IV every 8 hours Mucinex extended release 1200 mg p.o. twice daily Pulmicort Respules 0.5 mg inhaled twice daily Nasal cannula oxygen, titrate to keep pulse ox 90-92% Zosyn IV and azithromycin IV as noted Follow sputum gram stain and culture Follow blood cultures Diabetes mellitus- Placed on Accu-Cheks before meals and at bedtime with NovoLog coverage per scale Follow Accu-Cheks closely while on steroids Remaining orders and notations as noted Resident Activity Tracking Resident Involvement: Resident Care Provided Care Provided: Adult [facility]
[2021-09-23] MEDS ORDERED: GLUCAGON FOR INJ 1 MG VIAL SQ PRN (03:13)
[2021-09-23] MEDS ORDERED: GLUCOSE 40% GEL 15 GM TUBE PO PRN (03:13)
[2021-09-23] MEDS ORDERED: GLUCOSE 10 TABS/TUBE PO PRN (03:13)
[2021-09-23] MEDS ORDERED: CARBOHYDRATES FOR HYPOGLYCEMIA PO PRN (03:13)
[2021-09-23] MEDS ORDERED: DEXTROSE 50% 50 ML SYRINGE IV PRN (03:13)
[2021-09-23] MEDS ORDERED: ONDANSETRON INJ 2 MG/ML 2 ML VIAL IV PRN (04:11)
[2021-09-23] MEDS ORDERED: NITROGLYCERIN SL 0.4 MG/TAB TAB SL PRN (04:11)
[2021-09-23] MEDS ORDERED: ACETAMINOPHEN 325 MG TAB PO PRN (04:11)
[2021-09-23] MEDS ORDERED: POLYETHYLENE (MIRALAX) 17 GM PACK PO PRN (04:11)
[2021-09-23 05:28] LABS: Hematocrit (blood only) 39.8 % (42-52); Hemoglobin 13.5 g/dL (14.0-18.0); Mean Corpuscular Hgb Conc 33.9 g/dL (32-36); Mean Corpuscular Volume 91.3 fL (80-100); Mean Platelet Volume 9.9 fL (7.4-10.4); Platelet Count 321 K/uL (130-400); RDW Coefficient of Variation 14.8 % (11.5-14.5); RDW Standard Deviation 50.3 fL (36.4-46.3); Red Blood Count 4.36 M/uL (4.7-6.1); White Blood Count 24.25 K/uL (4.8-10.8)
[2021-09-23 05:54] LABS: Basophils # (auto) 0.01 K/uL (0-0.2); Immature Granulocytes % (auto) 0.4 %; Lymphocytes # (auto) 0.34 K/uL (1.2-3.4); Lymphocytes % (auto) 1.4 %; Monocytes # (auto) 0.82 K/uL (0.11-0.59); Monocytes % (auto) 3.4 %; Neutrophils # (auto) 22.98 K/uL (1.4-6.5); Neutrophils % (auto) 94.8 %
[2021-09-23] MEDS ORDERED: PIPERACILLIN/TAZOBACTAM 3.375 GM in DEXTROSE 5% 100 ML IV SCH (06:00)
[2021-09-23 06:07] LABS: BUN Creatinine Ratio 25.6 (10-20); Calcium 9.4 mg/dl (8.5-10.1); Creatinine Clr Calc Pharmacy 74.6 ml/min; Est GFR (African American) 98.8 ml/min; Est GFR (Non-African American) 85.3 ml/min; Magnesium 1.9 mg/dl (1.7-2.4); Potassium 3.4 mmol/L (3.5-5.1)
[2021-09-23] MEDS: methylPREDNISolone 40 MG in SYRINGE 0 ML IV SCH ×3 (06:41→22:29)
[2021-09-23] MEDS: LEVOTHYROXINE SODIUM 88 MCG TABLET PO SCH (06:41)
[2021-09-23] MEDS: BUDESONIDE 0.5 MG/2 ML VIAL (PULMICORT) NEB SCH ×2 (07:07→19:37)
[2021-09-23] MEDS: ALBUT/IPRATROP 3MG/0.5MG NEB 3 ML VIAL NEB SCH ×4 (07:07→19:37)
--- NOTE | 2021-09-23 07:33 | XRay Report ---
XR chest 1V portable CLINICAL HISTORY: Atypical chest pain. Shortness of breath. COMPARISON STUDY: Chest radiograph July 22, 2021. Chest CT June 11, 2021. FINDINGS: Emphysema is noted. There is no pneumothorax or pleural effusion. Cardiac size is normal. P atient is mildly rotated. Bibasilar airspace opacities are present. There may also be subtle opacitie s within the remainder of the right lung. IMPRESSION: 1. Bilateral airspace opacities, greatest within the lung bases. The findings favor an infectious pro cess. Radiographic follow-up to ensure resolution is recommended. 2. Emphysema. ACT 112: Negative or not required by law. Electronically signed by: Tirso Moreno M.D. 09/23/2021 7:32 AM
[2021-09-23 07:41] LABS: Estimated Average Glucose 146 mg/dl; Hemoglobin A1C 6.7 % (4.5-5.6)
[2021-09-23] MEDS: ENOXAPARIN INJ 40 MG/0.4 ML SYR SQ SCH (08:22)
[2021-09-23] MEDS: INSULIN ASPART PER UNIT SC SCH ×4 (08:26→20:26)
[2021-09-23] MEDS ORDERED: POTASSIUM CHLORIDE CRTAB 20 MEQ TABCR PO STA (08:36)
[2021-09-23] MEDS: ATORVASTATIN 20 MG TAB PO SCH (08:53)
[2021-09-23] MEDS: NICOTINE 14 MG/24 HR PATCH TD SCH (08:53)
[2021-09-23] MEDS: ASPIRIN 81 MG ECTAB PO SCH (08:53)
[2021-09-23] MEDS: INSULIN GLARGINE SOLOSTAR 100 UNITS/ML 3 ML PEN SC SCH ×2 (08:54→20:22)
[2021-09-23] MEDS ORDERED: LOSARTAN POTASSIUM 50 MG TAB PO SCH (09:00)
--- NOTE | 2021-09-23 10:25 | Billing Data ---
Date of Service September 23, 2021 Coding Level of Care Code 84124 Initial Inpt Care Lvl 3
[2021-09-23] MEDS: guaiFENesin 600 MG TABCR PO SCH ×2 (12:21→22:37)
--- NOTE | 2021-09-23 13:32 | History & Physical Bridge Note ---
Date of Service September 23, 2021 History & Physical Bridge Note I have examined the patient, reviewed the History & Physical and in the interval since the performance of the History & Physical I have noted the following changes of clinical significance: no changes noted Patient evaluated this afternoon. Doing better. Still with wet cough, encouraged use incentive spirometer/flutter valve. Sputum cx if able to produce. Continue abx, given recent pneumonia and hospitalization. had received rocephin/azithromycin in June for pneumonia, Repeat CXR in July noted improvement/resolution --> Placed on Zosyn/Azithromycin on admission but no concerns for aspiration and can continue Cefepime/Azithromycin for CAP Titrate O2 to maintain sats -- he did get O2 at d/c last admission but states he never needed this. Will perform prior to d/c when able to demonstrate needs but discussed likely will remain inpatient at least 24-48 hours more. Would like to have continued improvement and blood cultures negative 48 hours. Attending Attestation - Chart reviewed, care plan d/w LISBETH Liz. I agree with the armando components of her documentation. The cefepime will also provide gram negative coverage - his hospital stay in June puts him at risk of these pathogens. Julio West MD
[2021-09-23] MEDS: CEFEPIME 2,000 MG in SYRINGE 0 ML IV SCH ×2 (13:55→22:31)
--- NOTE | 2021-09-23 14:08 | Electrocardiogram Report ---
Test Reason : Blood Pressure : / mmHG Vent. Rate : 098 BPM Atrial Rate : 098 BPM P-R Int : 218 ms QRS Dur : 098 ms QT Int : 352 ms P-R-T Axes : 084 074 071 degrees QTc Int : 449 ms Sinus rhythm with sinus arrhythmia with 1st degree A-V block Otherwise normal ECG When compared with ECG of 11-JUN-2021 15:29, Fusion complexes are no longer Present Premature ventricular complexes are no longer Present Premature supraventricular complexes are no longer Present Nonspecific T wave abnormality no longer evident in Inferior leads Confirmed by Jasen Lopez ([id number]) on 09/23/2021 2:07:57 PM Referred By: REFERRED SELF Confirmed By:Gagandeep Lopez
--- NOTE | 2021-09-23 14:37 | Communication Note ---
Date of Service: September 23, 2021 CDS Query Sepsis, POA -- Leukocytosis, tachycardia, pneumonia on admission. Tx as outlined
[2021-09-23] MEDS: AZITHROMYCIN 250 MG in DEXTROSE 5% 250 ML IV SCH (22:33)
[2021-09-24] MEDS: ALBUT/IPRATROP 3MG/0.5MG NEB 3 ML VIAL NEB PRN (03:33)
[2021-09-24] MEDS: SODIUM CHLORIDE 0.9% 1000ML 1,000 ML IV SCH (06:21)
[2021-09-24] MEDS: CEFEPIME 2,000 MG in SYRINGE 0 ML IV SCH ×3 (06:22→21:29)
[2021-09-24] MEDS: methylPREDNISolone 40 MG in SYRINGE 0 ML IV SCH ×3 (06:22→21:27)
[2021-09-24] MEDS: LEVOTHYROXINE SODIUM 88 MCG TABLET PO SCH (06:23)
[2021-09-24] MEDS: ALBUT/IPRATROP 3MG/0.5MG NEB 3 ML VIAL NEB SCH ×4 (07:11→19:26)
[2021-09-24] MEDS: BUDESONIDE 0.5 MG/2 ML VIAL (PULMICORT) NEB SCH ×2 (07:11→19:25)
[2021-09-24] MEDS: ATORVASTATIN 20 MG TAB PO SCH (08:20)
[2021-09-24] MEDS: ASPIRIN 81 MG ECTAB PO SCH (08:20)
[2021-09-24] MEDS: ENOXAPARIN INJ 40 MG/0.4 ML SYR SQ SCH (08:21)
[2021-09-24] MEDS: INSULIN GLARGINE SOLOSTAR 100 UNITS/ML 3 ML PEN SC SCH ×2 (08:22→21:21)
[2021-09-24] MEDS: NICOTINE 14 MG/24 HR PATCH TD SCH (08:22)
[2021-09-24] MEDS: INSULIN ASPART PER UNIT SC SCH ×4 (08:28→21:26)
[2021-09-24 08:58] LABS: Hematocrit (blood only) 41.7 % (42-52); Hemoglobin 13.9 g/dL (14.0-18.0); Mean Corpuscular Hemoglobin 30.3 pg (25-34); Mean Corpuscular Hgb Conc 33.3 g/dL (32-36); Mean Platelet Volume 10.2 fL (7.4-10.4); Platelet Count 343 K/uL (130-400); RDW Coefficient of Variation 14.8 % (11.5-14.5); RDW Standard Deviation 49.5 fL (36.4-46.3); Red Blood Count 4.58 M/uL (4.7-6.1); White Blood Count 26.83 K/uL (4.8-10.8)
[2021-09-24 09:30] LABS: BUN Creatinine Ratio 31.4 (10-20); Calcium 9.3 mg/dl (8.5-10.1); Creatinine Clr Calc Pharmacy 67.4 ml/min; Est GFR (African American) 94.9 ml/min; Est GFR (Non-African American) 81.9 ml/min; Potassium 3.7 mmol/L (3.5-5.1)
--- NOTE | 2021-09-24 11:04 | Hospitalist Progress Note ---
Date of Service September 24, 2021 Assessment & Plan (1) Pneumonia: Plan: 81 year old male w/ COPD, DM2, HTN, hypothyroidism, and tobacco use disorder who presents w/ COPD exacerbation, w/ 2 days on 2 months of worsening dyspnea and sputum. -Chest x-ray with bilateral airspace opacities - leukocytosis of 23.77 noted on admission with neutrophilia, w/ no recent steroid use. - ordered blood and sputum cultures-pending - will continue course of IV zosyn and IV azithro; reviewed chart history; has had multiple recent copd exacerbation stays, most recently 05/2021 and 06/2021. - patient did wean off the 1L at rest, 3L w/ exertion O2 that he was rx'd after last admission, but it appears his dyspnea symptoms never fully resolved - as such will cover pseudomonas -Continue with IV Solu-Medrol for COPD exacerbation given wheezing - duonebs and pulmcort respules - mucinex q12 - incentive spirom. flutter valve - titrate O2 goal of 90% -Follow CBC, BMP in the morning -Speech therapy consultation appreciated-plan for FEES instrumental swallow study tomorrow to rule out aspiration (2) COPD exacerbation: Plan: With wheezing and hypoxia Treating with nebulizers, inhaled corticosteroids, systemic corticosteroids Azithromycin for atypicals as above Encouraged smoking cessation (3) Sepsis: Plan: Sepsis, POA -- Leukocytosis, tachycardia, pneumonia on admission. Improving Blood pressures are stable DC IV fluids (4) Hypoxia: Plan: Acute respiratory failure with hypoxia secondary to COPD exacerbation pneumonia Supplemental O2 to keep pulse ox greater than 88-90% Wean off as able to Will need a two-step prior to discharge (5) COPD with emphysema: Plan: - holding home regimen - duonebs and pulmcort respules while inpatient (6) Type 2 diabetes mellitus without complication: Plan: Hemoglobin A1c is very well controlled at 6.7% basal, bolus regimen while inpatient With hyperglycemia secondary to corticosteroids-taken down NovoLog and increase Lantus to 7 units twice daily (7) Hypothyroidism: Plan: - continue home levothyroxine TSH here normal at 0.539 (8) Tobacco use: Plan: - nicotine patch ordered -Counseled on cessation which she is committed to doing His 30 pound weight loss in the last 3 months is most likely secondary to recent starting of Victoza and Jardiance as an outpatient, however he is at risk for malignancy given history of smoking Follow chest x-ray or even chest CT to resolution as an outpatient to ensure no underlying malignancy (9) Hypertension: Plan: - Okay to restart home HCTZ Continue to hold home losartan due to soft low blood pressures Plan: DVT prophylaxis Lovenox Disposition-continued stay but can downgrade to medical/surgical unit Admission and Anticipated Discharge Date Admission Date: September 23, 2021 Subjective Patient reports he does not feel much better since admission but knows that it will take some time. He feels like he never fully recovered since his last admission 3 months ago. Does feel slightly less short of breath though. No chest pain or abdominal pain, no nausea. He has not yet moved his bowels today. Telemetry with normal sinus rhythm, rates in the 80s to 90s, PACs and PVCs. I discussed his care with speech therapist who plans on performing an instrumental swallow study tomorrow Review of Systems 2 Review of Systems: All systems reviewed & are unremarkable except as noted in HPI & below Physical Exam Constitutional: WD/WN, vitals as above Eyes: PERRL, conjunctivae normal, anicteric sclerae ENMT: external ear and nose normal, oropharynx normal Neck: trachea midline, no thyromegaly Respiratory: normal respiratory effort; no cough Auscultation: + wheezes (Diffusely right greater than left, expiratory); no crackles Cardiovascular: RRR, no murmur, no edema Chest (Breasts): Chest: normal inspection of chest Gastrointestinal (Abdomen): normal bowel sounds, soft, nontender, no hepatosplenomegaly Musculoskeletal: Extremities: extremities normal to inspection; no cyanosis and no clubbing Skin: no rashes, warm and dry Neurologic: moves all extremities and awake; no focal motor deficits Psychiatric: A+Ox3, euthymic affect Lymphatic: no lymphedema Results & Data Results & Data ([facility]) Vital Signs (Past 12 Hours) Vital Signs Temp Pulse Pulse Pulse Resp BP BP 09/24/21 08:00 36.5 C 83 18 93/50 L 09/24/21 07:11 84 18 09/24/21 07:10 68 09/24/21 03:36 78 20 09/24/21 03:01 36.5 C 74 18 97/42 L 09/23/21 23:41 36.4 C L 70 18 94/60 L Pulse Ox 09/24/21 08:00 96 09/24/21 07:11 91 09/24/21 07:10 09/24/21 03:36 96 09/24/21 03:01 91 09/23/21 23:41 92 Laboratory Results 09/24/21 09/24/21 09/24/21 Range/Units 20:44 16:43 11:41 WBC (4.8-10.8) K/uL RBC (4.7-6.1) M/uL Hgb (14.0-18.0) g/dL Hct (42-52) % MCV (80-100) fL MCH (25-34) pg MCHC (32-36) g/dL RDW Std Deviation (36.4-46.3) fL RDW Coeff of Samantha (11.5-14.5) % Plt Count (130-400) K/uL MPV (7.4-10.4) fL Sodium (136-145) mmol/L Potassium (3.5-5.1) mmol/L Chloride (98-107) mmol/L Carbon Dioxide (21-32) mmol/L Anion Gap (3-11) BUN (6-23) mg/dl Creatinine (0.6-1.4) mg/dl Est Cr Clr Drug Dosing ml/min Est GFR ( Amer) ml/min Est GFR (Non-Af Amer) ml/min BUN/Creatinine Ratio (10-20) Glucose (70-99(Fasting)) mg/dl POC Glucose 172 H 155 H 234 H (70-99) mg/dl Calcium (8.5-10.1) mg/dl TSH (0.300-4.500) uIu/ml 09/24/21 09/24/21 09/24/21 Range/Units 08:43 08:43 08:43 WBC 26.83 H (4.8-10.8) K/uL RBC 4.58 L (4.7-6.1) M/uL Hgb 13.9 L (14.0-18.0) g/dL Hct 41.7 L (42-52) % MCV 91.0 (80-100) fL MCH 30.3 (25-34) pg MCHC 33.3 (32-36) g/dL RDW Std Deviation 49.5 H (36.4-46.3) fL RDW Coeff of Samantha 14.8 H (11.5-14.5) % Plt Count 343 (130-400) K/uL MPV 10.2 (7.4-10.4) fL Sodium 135 L (136-145) mmol/L Potassium 3.7 (3.5-5.1) mmol/L Chloride 102 (98-107) mmol/L Carbon Dioxide 22 (21-32) mmol/L Anion Gap 11 (3-11) BUN 27 H (6-23) mg/dl Creatinine 0.86 (0.6-1.4) mg/dl Est Cr Clr Drug Dosing 67.4 ml/min Est GFR ( Amer) 94.9 ml/min Est GFR (Non-Af Amer) 81.9 ml/min BUN/Creatinine Ratio 31.4 H (10-20) Glucose 227 H (70-99(Fasting)) mg/dl POC Glucose (70-99) mg/dl Calcium 9.3 (8.5-10.1) mg/dl TSH 0.539 (0.300-4.500) uIu/ml 09/24/21 Range/Units 08:22 WBC (4.8-10.8) K/uL RBC (4.7-6.1) M/uL Hgb (14.0-18.0) g/dL Hct (42-52) % MCV (80-100) fL MCH (25-34) pg MCHC (32-36) g/dL RDW Std Deviation (36.4-46.3) fL RDW Coeff of Samantha (11.5-14.5) % Plt Count (130-400) K/uL MPV (7.4-10.4) fL Sodium (136-145) mmol/L Potassium (3.5-5.1) mmol/L Chloride (98-107) mmol/L Carbon Dioxide (21-32) mmol/L Anion Gap (3-11) BUN (6-23) mg/dl Creatinine (0.6-1.4) mg/dl Est Cr Clr Drug Dosing ml/min Est GFR ( Amer) ml/min Est GFR (Non-Af Amer) ml/min BUN/Creatinine Ratio (10-20) Glucose (70-99(Fasting)) mg/dl POC Glucose 158 H (70-99) mg/dl Calcium (8.5-10.1) mg/dl TSH (0.300-4.500) uIu/ml PG Care Time/CCT Total # of Minutes Spent Total Time Spent with Patient: Total time spent is greater than 50% in coordination of care (as documented) at patient's floor/unit and/or counseling patient: Coding Level of Care Code 28453 Subseq Hosp Care Lvl 3 Diagnoses COPD exacerbation J44.1 Type 2 diabetes mellitus without complication E11.9 Hypothyroidism E03.9 Tobacco use Z72.0 Hypertension I10 COPD with emphysema J43.9 Sepsis A41.9 Pneumonia J18.9 Laterality: bilateral Lung location: lower lobe of lung Pneumonia type: due to unspecified organism Hypoxia R09.02 (1) Pneumonia Laterality: bilateral Lung location: lower lobe of lung Pneumonia type: due to unspecified organism Qualified Code(s): J18.9 - Pneumonia, unspecified organism
[2021-09-24] MEDS: guaiFENesin 600 MG TABCR PO SCH ×2 (11:27→21:33)
[2021-09-24] MEDS: AZITHROMYCIN 250 MG in DEXTROSE 5% 250 ML IV SCH (21:30)
[2021-09-25] MEDS: methylPREDNISolone 40 MG in SYRINGE 0 ML IV SCH ×2 (06:04→21:10)
[2021-09-25] MEDS: CEFEPIME 2,000 MG in SYRINGE 0 ML IV SCH ×3 (06:04→22:11)
[2021-09-25] MEDS: LEVOTHYROXINE SODIUM 88 MCG TABLET PO SCH (06:05)
[2021-09-25] MEDS: ALBUT/IPRATROP 3MG/0.5MG NEB 3 ML VIAL NEB SCH ×4 (08:02→19:35)
[2021-09-25] MEDS: BUDESONIDE 0.5 MG/2 ML VIAL (PULMICORT) NEB SCH ×2 (08:02→19:35)
[2021-09-25] MEDS: INSULIN ASPART PER UNIT SC SCH ×4 (08:50→21:09)
[2021-09-25 09:14] LABS: Basophils # (auto) 0.01 K/uL (0-0.2); Basophils % (auto) 0.1 %; Hematocrit (blood only) 39.5 % (42-52); Immature Granulocytes # (auto) 0.21 K/uL (0.00-0.02); Immature Granulocytes % (auto) 1.1 %; Lymphocytes # (auto) 0.73 K/uL (1.2-3.4); Lymphocytes % (auto) 3.9 %; Mean Corpuscular Hgb Conc 32.9 g/dL (32-36); Mean Platelet Volume 10.3 fL (7.4-10.4); Monocytes # (auto) 0.72 K/uL (0.11-0.59); Monocytes % (auto) 3.9 %; Neutrophils # (auto) 16.99 K/uL (1.4-6.5); Platelet Count 360 K/uL (130-400); RDW Coefficient of Variation 14.6 % (11.5-14.5); RDW Standard Deviation 49.6 fL (36.4-46.3); Red Blood Count 4.34 M/uL (4.7-6.1); White Blood Count 18.66 K/uL (4.8-10.8)
[2021-09-25 09:32] LABS: BUN Creatinine Ratio 35.1 (10-20); Calcium 9.4 mg/dl (8.5-10.1); Creatinine Clr Calc Pharmacy 75.3 ml/min; Est GFR (African American) 99.3 ml/min; Est GFR (Non-African American) 85.7 ml/min; Potassium 4.4 mmol/L (3.5-5.1)
[2021-09-25] MEDS: NICOTINE 14 MG/24 HR PATCH TD SCH (09:44)
[2021-09-25] MEDS: ENOXAPARIN INJ 40 MG/0.4 ML SYR SQ SCH (09:45)
[2021-09-25] MEDS: ASPIRIN 81 MG ECTAB PO SCH (09:46)
[2021-09-25] MEDS: ATORVASTATIN 20 MG TAB PO SCH (09:46)
[2021-09-25] MEDS: INSULIN GLARGINE SOLOSTAR 100 UNITS/ML 3 ML PEN SC SCH ×2 (09:47→21:10)
[2021-09-25] MEDS: hydroCHLOROthiazide 25 MG TAB PO SCH (10:34)
[2021-09-25] MEDS: guaiFENesin 600 MG TABCR PO SCH ×2 (11:53→22:11)
--- NOTE | 2021-09-25 12:57 | Hospitalist Progress Note ---
Date of Service September 25, 2021 Assessment & Plan (1) Pneumonia: Plan: 81 year old male w/ COPD, DM2, HTN, hypothyroidism, and tobacco use disorder who presents w/ COPD exacerbation, w/ 2 days on 2 months of worsening dyspnea and sputum. FOund to have PNA on CXR -Chest x-ray with bilateral airspace opacities - leukocytosis of 23.77 noted on admission with neutrophilia, w/ no recent steroid use. WBC count trending downward now - ordered blood and sputum cultures-pending - will continue course of IV Cefepime and change to po azithro x 5 day course; reviewed chart history; has had multiple recent copd exacerbation stays, most recently 05/2021 and 06/2021. - patient did wean off the 1L at rest, 3L w/ exertion O2 that he was rx'd after last admission, but it appears his dyspnea symptoms never fully resolved, now requiring 2-3LNC at rest - as such will cover for pseudomonas given possibility of HCAP -Continue with IV Solu-Medrol for COPD exacerbation given wheezing but is improving today--> decrease to q12 h dosing - duonebs and pulmcort respules - mucinex q12 - incentive spirom. flutter valve - titrate O2 goal of 90% -Follow CBC, BMP in the morning -Speech therapy consultation appreciated-plan for FEES instrumental swallow study today to rule out aspiration (2) COPD exacerbation: Plan: With wheezing and hypoxia Treating with nebulizers, inhaled corticosteroids, systemic corticosteroids Azithromycin for atypicals as above Encouraged smoking cessation (3) Sepsis: Plan: Sepsis, POA -- Leukocytosis, tachycardia, pneumonia on admission. Improving Blood pressures are stable (4) Hypoxia: Plan: Acute respiratory failure with hypoxia secondary to COPD exacerbation pneumonia Supplemental O2 to keep pulse ox greater than 88-90% Wean off as able to Will need a two-step prior to discharge (5) COPD with emphysema: Plan: - holding home regimen - duonebs and pulmcort respules while inpatient (6) Type 2 diabetes mellitus without complication: Plan: Hemoglobin A1c is very well controlled at 6.7% basal, bolus regimen while inpatient With hyperglycemia secondary to corticosteroids now improving with increasing doses of insulin He has lost 30 bs in the last 3 months and feels very fatigued since starting on Victoza injections-holding for now and plan to hold after discharge to see if this helps him feel better (7) Hypothyroidism: Plan: - continue home levothyroxine TSH here normal at 0.539 (8) Tobacco use: Plan: - nicotine patch ordered -Counseled on cessation which she is committed to doing His 30 pound weight loss in the last 3 months is most likely secondary to recent starting of Victoza and Jardiance as an outpatient, however he is at risk for malignancy given history of smoking Follow chest x-ray or even chest CT to resolution as an outpatient to ensure no underlying malignancy (9) Hypertension: Plan: - continue home HCTZ Continue to hold home losartan due to soft blood pressures Plan: DVT prophylaxis Lovenox Disposition-continued stay on medical/surgical unit, but improving. Likely dc to home in next 1-2 days Admission and Anticipated Discharge Date Admission Date: September 23, 2021 Subjective Pt feels a little better today, less OSB. Has a cough but not able to bring up sputum yet. Wants to know if he's going to get better. APpetite here is good, no nausea, no abd pain, is moving bowels. No headaches. Is ambulating to the BR and back. Is on 2.5LNC, asked RN to wean down as POx 96%. He is still frustrated that he has not fully regained his sense of taste and smell since he thinks he had COVID last year Review of Systems Review of Systems: All systems reviewed & are unremarkable except as noted in HPI & below Physical Exam Constitutional: WD/WN, vitals as above Eyes: + anicteric sclerae Neck: trachea midline, no thyromegaly Respiratory: normal respiratory effort; no cough Auscultation: + wheezes (very mild on right,greatly improved); no crackles Cardiovascular: RRR, no murmur, no edema Chest (Breasts): Chest: normal inspection of chest Gastrointestinal (Abdomen): normal bowel sounds, soft, nontender, no hepatosplenomegaly Musculoskeletal: Extremities: extremities normal to inspection; no cyanosis and no clubbing Skin: no rashes, warm and dry Neurologic: moves all extremities and awake; no focal motor deficits Psychiatric: A+Ox3, euthymic affect Lymphatic: no lymphedema Results & Data Results & Data ([facility]) Vital Signs (Past 12 Hours) Vital Signs Temp Pulse Resp BP Pulse Ox 09/25/21 11:21 83 20 96 09/25/21 08:04 80 20 90 09/25/21 07:44 36.6 C 90 18 119/75 96 Laboratory Results 09/25/21 09/25/21 09/25/21 Range/Units 11:55 08:49 08:35 WBC (4.8-10.8) K/uL RBC (4.7-6.1) M/uL Hgb (14.0-18.0) g/dL Hct (42-52) % MCV (80-100) fL MCH (25-34) pg MCHC (32-36) g/dL RDW Std Deviation (36.4-46.3) fL RDW Coeff of Samantha (11.5-14.5) % Plt Count (130-400) K/uL MPV (7.4-10.4) fL Immature Gran % (Auto) % Neut % (Auto) % Lymph % (Auto) % Mchenry % (Auto) % Eos % (Auto) % Baso % (Auto) % Neut # (Auto) (1.4-6.5) K/uL Lymph # (Auto) (1.2-3.4) K/uL Mchenry # (Auto) (0.11-0.59) K/uL Eos # (Auto) (0-0.5) K/uL Baso # (Auto) (0-0.2) K/uL Immature Gran # (Auto) (0.00-0.02) K/uL Sodium 135 L (136-145) mmol/L Potassium 4.4 (3.5-5.1) mmol/L Chloride 103 (98-107) mmol/L Carbon Dioxide 25 (21-32) mmol/L Anion Gap 7 (3-11) BUN 27 H (6-23) mg/dl Creatinine 0.77 (0.6-1.4) mg/dl Est Cr Clr Drug Dosing 75.3 ml/min Est GFR ( Amer) 99.3 ml/min Est GFR (Non-Af Amer) 85.7 ml/min BUN/Creatinine Ratio 35.1 H (10-20) Glucose 196 H (70-99(Fasting)) mg/dl POC Glucose 196 H 191 H (70-99) mg/dl Calcium 9.4 (8.5-10.1) mg/dl 04/09/24/21 09/24/21 Range/Units 08:35 20:44 16:43 WBC 18.66 H (4.8-10.8) K/uL RBC 4.34 L (4.7-6.1) M/uL Hgb 13.0 L (14.0-18.0) g/dL Hct 39.5 L (42-52) % MCV 91.0 (80-100) fL MCH 30.0 (25-34) pg MCHC 32.9 (32-36) g/dL RDW Std Deviation 49.6 H (36.4-46.3) fL RDW Coeff of Samantha 14.6 H (11.5-14.5) % Plt Count 360 (130-400) K/uL MPV 10.3 (7.4-10.4) fL Immature Gran % (Auto) 1.1 % Neut % (Auto) 91.0 % Lymph % (Auto) 3.9 % Mchenry % (Auto) 3.9 % Eos % (Auto) 0.0 % Baso % (Auto) 0.1 % Neut # (Auto) 16.99 H (1.4-6.5) K/uL Lymph # (Auto) 0.73 L (1.2-3.4) K/uL Mchenry # (Auto) 0.72 H (0.11-0.59) K/uL Eos # (Auto) 0.00 (0-0.5) K/uL Baso # (Auto) 0.01 (0-0.2) K/uL Immature Gran # (Auto) 0.21 H (0.00-0.02) K/uL Sodium (136-145) mmol/L Potassium (3.5-5.1) mmol/L Chloride (98-107) mmol/L Carbon Dioxide (21-32) mmol/L Anion Gap (3-11) BUN (6-23) mg/dl Creatinine (0.6-1.4) mg/dl Est Cr Clr Drug Dosing ml/min Est GFR ( Amer) ml/min Est GFR (Non-Af Amer) ml/min BUN/Creatinine Ratio (10-20) Glucose (70-99(Fasting)) mg/dl POC Glucose 172 H 155 H (70-99) mg/dl Calcium (8.5-10.1) mg/dl PG Care Time/CCT Total # of Minutes Spent Total Time Spent with Patient: Total time spent is greater than 50% in coordination of care (as documented) at patient's floor/unit and/or counseling patient: Coding Level of Care Code 77167 Subseq Hosp Care Lvl 2 Diagnoses Pneumonia J18.9 Laterality: bilateral Lung location: lower lobe of lung Pneumonia type: due to unspecified organism COPD exacerbation J44.1 Sepsis A41.9 Hypoxia R09.02 COPD with emphysema J43.9 Type 2 diabetes mellitus without complication E11.9 Hypothyroidism E03.9 Tobacco use Z72.0 Hypertension I10 (1) Pneumonia Laterality: bilateral Lung location: lower lobe of lung Pneumonia type: due to unspecified organism Qualified Code(s): J18.9 - Pneumonia, unspecified organism
[2021-09-25] MEDS: FLUTICASONE PROPIONATE NA SPR 16 GM BTL SCH (16:08)
[2021-09-25] MEDS: AZITHROMYCIN 250 MG TAB PO SCH (18:11)
[2021-09-26] MEDS: ALBUT/IPRATROP 3MG/0.5MG NEB 3 ML VIAL NEB PRN (03:08)
[2021-09-26] MEDS: CEFEPIME 2,000 MG in SYRINGE 0 ML IV SCH ×3 (05:21→22:13)
[2021-09-26] MEDS: LEVOTHYROXINE SODIUM 88 MCG TABLET PO SCH (05:22)
[2021-09-26] MEDS: BUDESONIDE 0.5 MG/2 ML VIAL (PULMICORT) NEB SCH ×2 (07:25→19:03)
[2021-09-26] MEDS: ALBUT/IPRATROP 3MG/0.5MG NEB 3 ML VIAL NEB SCH ×4 (07:25→19:03)
[2021-09-26] MEDS: INSULIN ASPART PER UNIT SC SCH ×4 (08:38→21:05)
[2021-09-26] MEDS: INSULIN GLARGINE SOLOSTAR 100 UNITS/ML 3 ML PEN SC SCH ×2 (08:40→21:06)
[2021-09-26 08:42] LABS: Basophils # (auto) 0.02 K/uL (0-0.2); Basophils % (auto) 0.1 %; Hematocrit (blood only) 38.5 % (42-52); Hemoglobin 12.8 g/dL (14.0-18.0); Immature Granulocytes # (auto) 0.22 K/uL (0.00-0.02); Immature Granulocytes % (auto) 1.4 %; Lymphocytes # (auto) 0.89 K/uL (1.2-3.4); Lymphocytes % (auto) 5.7 %; Mean Corpuscular Hemoglobin 30.5 pg (25-34); Mean Corpuscular Hgb Conc 33.2 g/dL (32-36); Mean Corpuscular Volume 91.7 fL (80-100); Mean Platelet Volume 10.1 fL (7.4-10.4); Monocytes # (auto) 1.47 K/uL (0.11-0.59); Monocytes % (auto) 9.4 %; Neutrophils # (auto) 13.12 K/uL (1.4-6.5); Neutrophils % (auto) 83.4 %; Platelet Count 378 K/uL (130-400); RDW Coefficient of Variation 14.7 % (11.5-14.5); RDW Standard Deviation 49.8 fL (36.4-46.3); White Blood Count 15.72 K/uL (4.8-10.8)
[2021-09-26] MEDS: ENOXAPARIN INJ 40 MG/0.4 ML SYR SQ SCH (08:42)
[2021-09-26] MEDS: ASPIRIN 81 MG ECTAB PO SCH (08:44)
[2021-09-26] MEDS: FLUTICASONE PROPIONATE NA SPR 16 GM BTL SCH (08:44)
[2021-09-26] MEDS: hydroCHLOROthiazide 25 MG TAB PO SCH (08:45)
[2021-09-26] MEDS: NICOTINE 14 MG/24 HR PATCH TD SCH (08:45)
[2021-09-26] MEDS: ATORVASTATIN 20 MG TAB PO SCH (08:45)
[2021-09-26] MEDS: methylPREDNISolone 40 MG in SYRINGE 0 ML IV SCH ×2 (08:46→20:03)
[2021-09-26 09:05] LABS: BUN Creatinine Ratio 32.9 (10-20); Calcium 9.2 mg/dl (8.5-10.1); Creatinine Clr Calc Pharmacy 76.3 ml/min; Est GFR (African American) 99.9 ml/min; Est GFR (Non-African American) 86.2 ml/min; Potassium 4.1 mmol/L (3.5-5.1)
[2021-09-26] MEDS: guaiFENesin 600 MG TABCR PO SCH ×2 (11:42→22:12)
--- NOTE | 2021-09-26 16:42 | Hospitalist Progress Note ---
Date of Service September 26, 2021 Assessment & Plan (1) Pneumonia: Plan: 81 year old male w/ COPD, DM2, HTN, hypothyroidism, and tobacco use disorder who presents w/ COPD exacerbation, w/ 2 days on 2 months of worsening dyspnea and sputum. FOund to have PNA on CXR -Chest x-ray with bilateral airspace opacities - leukocytosis of 23.77 noted on admission with neutrophilia, w/ no recent steroid use. WBC count continues to be trending downward now He is much improved since admission -Sputum culture-growing moderate normal hao Blood cultures-no growth to date greater than 48 hours - will continue course of IV Cefepime and change to po azithro x 5 day course; reviewed chart history; has had multiple recent copd exacerbation stays, most recently 05/2021 and 06/2021. - patient did wean off the 1L at rest, 3L w/ exertion O2 that he was rx'd after last admission, but it appears his dyspnea symptoms never fully resolved, now requiring 2-3LNC at rest - as such will cover for pseudomonas given possibility of HCAP -Continue with IV Solu-Medrol for COPD exacerbation given wheezing but is improving today--> changed to p.o. prednisone for tomorrow - duonebs and pulmcort respules - mucinex q12 - incentive spirom. flutter valve - titrate O2 goal of 90% -Follow chest x-ray PA/LAT in the morning -Follow CBC, BMP in the morning -Speech therapy consultation appreciated-he underwent a FEES instrumental swallow study-negative for aspiration (2) COPD exacerbation: Plan: With wheezing and hypoxia-both now improving Treating with nebulizers, inhaled corticosteroids, systemic corticosteroids Azithromycin for atypicals as above Encouraged smoking cessation (3) Sepsis: Plan: Sepsis, POA -- Leukocytosis, tachycardia, pneumonia on admission. Resolved Blood pressures are stable (4) Hypoxia: Plan: Acute respiratory failure with hypoxia secondary to COPD exacerbation pneumonia- improving Now weaned down to 1 L nasal cannula Asked nurse to ambulate patient with pulse ox today and try to wean off oxygen Supplemental O2 to keep pulse ox greater than 88-90% Will need a two-step prior to discharge (5) COPD with emphysema: Plan: - holding home regimen - duonebs and pulmcort respules while inpatient (6) Type 2 diabetes mellitus without complication: Plan: Hemoglobin A1c is very well controlled at 6.7% basal, bolus regimen while inpatient With hyperglycemia secondary to corticosteroids now improving with increasing doses of insulin, however remains with some blood sugars greater than 200- tighten down NovoLog sliding scale and increase Lantus today He has lost 30 bs in the last 3 months and feels very fatigued since starting on Victoza injections-holding for now and plan to hold after discharge to see if this helps him feel better (7) Hypothyroidism: Plan: - continue home levothyroxine TSH here normal at 0.539 (8) Tobacco use: Plan: - nicotine patch ordered -Counseled on cessation which she is committed to doing His 30 pound weight loss in the last 3 months is most likely secondary to recent starting of Victoza and Jardiance as an outpatient, however he is at risk for m alignancy given history of smoking Follow chest x-ray or even chest CT to resolution as an outpatient to ensure no underlying malignancy (9) Hypertension: Plan: - continue home HCTZ Continue to hold home losartan due to soft blood pressures Plan: DVT prophylaxis Lovenox Disposition-continued stay on medical/surgical unit, but improving. Likely dc to home tomorrow Admission and Anticipated Discharge Date Admission Date: September 23, 2021 Anticipated date of discharge: 09/27/21 Subjective Patient feeling better today, less short of breath is ambulating the halls. He finally coughed up some sputum. Is moving his bowels and making urine. He does not quite feel ready to go home yet. He is a bit anxious and wants to know if I think he is doing better. Review of Systems Review of Systems: All systems reviewed & are unremarkable except as noted in HPI & below Physical Exam Constitutional: WD/WN, vitals as above Eyes: + anicteric sclerae Neck: trachea midline, no thyromegaly Respiratory: normal respiratory effort; no cough Auscultation: + wheezes (very mild on right,greatly improved); no crackles Cardiovascular: RRR, no murmur, no edema Chest (Breasts): Chest: normal inspection of chest Gastrointestinal (Abdomen): normal bowel sounds, soft, nontender, no hepatosplenomegaly Musculoskeletal: Extremities: extremities normal to inspection; no cyanosis and no clubbing Skin: no rashes, warm and dry Neurologic: moves all extremities and awake; no focal motor deficits Psychiatric: A+Ox3, euthymic affect Lymphatic: no lymphedema Results & Data Results & Data ([facility]) Vital Signs (Past 12 Hours) Vital Signs Temp Pulse Resp BP Pulse Ox 09/26/21 15:36 67 18 97 09/26/21 15:09 36.5 C 67 16 114/70 95 09/26/21 11:25 17 95 09/26/21 07:20 83 18 94 09/26/21 07:06 36.4 C L 74 18 115/72 93 Laboratory Results 09/26/21 07:59 09/26/21 07:59 PG Care Time/CCT Total # of Minutes Spent Total Time Spent with Patient: Total time spent is greater than 50% in coordination of care (as documented) at patient's floor/unit and/or counseling patient: Coding Level of Care Code 37588 Subseq Hosp Care Lvl 2 Diagnoses Pneumonia J18.9 Laterality: bilateral Lung location: lower lobe of lung Pneumonia type: due to unspecified organism COPD exacerbation J44.1 Sepsis A41.9 Hypoxia R09.02 COPD with emphysema J43.9 Type 2 diabetes mellitus without complication E11.9 Hypothyroidism E03.9 Tobacco use Z72.0 Hypertension I10 (1) Pneumonia Laterality: bilateral Lung location: lower lobe of lung Pneumonia type: due to unspecified organism Qualified Code(s): J18.9 - Pneumonia, unspecified organism
[2021-09-26] MEDS: AZITHROMYCIN 250 MG TAB PO SCH (17:42)
[2021-09-26 23:42] VITALS: TEMP 97.9
[2021-09-27] MEDS: CEFEPIME 2,000 MG in SYRINGE 0 ML IV SCH (05:42)
[2021-09-27] MEDS: LEVOTHYROXINE SODIUM 88 MCG TABLET PO SCH (05:42)
[2021-09-27] MEDS: BUDESONIDE 0.5 MG/2 ML VIAL (PULMICORT) NEB SCH (07:07)
[2021-09-27] MEDS: ALBUT/IPRATROP 3MG/0.5MG NEB 3 ML VIAL NEB SCH ×2 (07:07→10:39)
[2021-09-27 08:30] VITALS: BP 109/70; O2SAT 92
[2021-09-27] MEDS: INSULIN ASPART PER UNIT SC SCH ×2 (08:31→12:34)
[2021-09-27] MEDS: INSULIN GLARGINE SOLOSTAR 100 UNITS/ML 3 ML PEN SC SCH (08:33)
[2021-09-27] MEDS: ENOXAPARIN INJ 40 MG/0.4 ML SYR SQ SCH (08:35)
[2021-09-27] MEDS: NICOTINE 14 MG/24 HR PATCH TD SCH (08:37)
[2021-09-27] MEDS: ASPIRIN 81 MG ECTAB PO SCH (08:37)
[2021-09-27] MEDS: FLUTICASONE PROPIONATE NA SPR 16 GM BTL SCH (08:37)
[2021-09-27] MEDS: ATORVASTATIN 20 MG TAB PO SCH (08:37)
[2021-09-27] MEDS ORDERED: predniSONE 20 MG TAB PO SCH (09:00)
[2021-09-27 09:10] LABS: Basophils # (auto) 0.03 K/uL (0-0.2); Basophils % (auto) 0.2 %; Hematocrit (blood only) 42.9 % (42-52); Hemoglobin 14.2 g/dL (14.0-18.0); Immature Granulocytes # (auto) 0.67 K/uL (0.00-0.02); Lymphocytes # (auto) 1.75 K/uL (1.2-3.4); Lymphocytes % (auto) 10.4 %; Mean Corpuscular Hemoglobin 30.5 pg (25-34); Mean Corpuscular Hgb Conc 33.1 g/dL (32-36); Mean Corpuscular Volume 92.1 fL (80-100); Mean Platelet Volume 9.9 fL (7.4-10.4); Monocytes # (auto) 1.35 K/uL (0.11-0.59); Neutrophils # (auto) 13.01 K/uL (1.4-6.5); Neutrophils % (auto) 77.4 %; Nucleated RBC # (auto) 0.04 K/uL (0-0); Nucleated RBC % (auto) 0.3 %; Platelet Count 415 K/uL (130-400); RDW Coefficient of Variation 14.6 % (11.5-14.5); RDW Standard Deviation 49.5 fL (36.4-46.3); Red Blood Count 4.66 M/uL (4.7-6.1); White Blood Count 16.81 K/uL (4.8-10.8)
[2021-09-27 09:34] LABS: BUN Creatinine Ratio 30.5 (10-20); Calcium 9.8 mg/dl (8.5-10.1); Creatinine Clr Calc Pharmacy 70.7 ml/min; Est GFR (African American) 96.8 ml/min; Est GFR (Non-African American) 83.5 ml/min; Potassium 4.4 mmol/L (3.5-5.1)
[2021-09-27] MEDS: hydroCHLOROthiazide 25 MG TAB PO SCH (09:48)
--- NOTE | 2021-09-27 10:08 | XRay Report ---
TWO VIEW CHEST CLINICAL HISTORY: Follow-up pneumonia.. FINDINGS: PA and lateral chest radiographs are compared to study dated 09/22/2021 and correlated with chest CT dated 06/11/2021. The heart is top normal for projection noting atherosclerotic calcification of the thoracic aorta. Emphysema and chronic interstitial thickening is similar to previous. Patchy a irspace consolidation is again seen at both lung bases, right greater than left. Mild patchy opacitie s are also noted in the right upper lobe. There is no pneumothorax. The skeletal structures are osteo penic. The bony thorax appears intact. 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 IMPRESSION: 1. Advanced emphysema. 2. Patchy airspace opacities at both lung bases and in the right upper lobe are similar to previous a nd typical for pneumonia. Radiographic follow-up to resolution is recommended. ACT 112: Negative or not required by law. Electronically signed by: Fabian Mcneil M.D. 09/27/2021 10:06 AM
[2021-09-27 10:56] VITALS: PULSE 84
--- NOTE | 2021-09-27 11:10 | Discharge Summary ---
Date of Service September 27, 2021 Admission HPI Per Admitting Provider 81 year old male w/ COPD, DM2, HTN, hypothyroidism, and tobacco use disorder who presents w/ worsening shortness of breath and productive cough of green yellow sputum x 2 month. No hemoptysis. He came in today because he had worsened symptoms x 2 days. Denies fever. Denies chest pain. Dyspnea on exertion mostly. Slightly orthopneic. Not pleuritic. No abd or urinary symptoms. Current smoker 0.5 ppd. Denies illicit. Has had Pfizer first booster. Denies hx VTE or VA or stroke. not on home O2. Denies recent steroid use. He was treated for pneumonia 06/2021. He states his condition never fully recovered. He has had fatigues and 30-40 lb weight loss. No night sweats. ED course: Duoneb. 1L NSS. 125mg IV methylpred. Zosyn and IV azithro. Discharge Exam Constitutional WD/WN, vitals as above Eyes PERRL, conjunctivae normal, anicteric sclerae + anicteric sclerae ENMT external ear and nose normal, oropharynx normal Neck trachea midline, no thyromegaly Respiratory normal respiratory effort; no cough Auscultation: + wheezes (very mild on right,greatly improved); no crackles Cardiovascular RRR, no murmur, no edema Chest (Breasts) Chest: normal inspection of chest Gastrointestinal (Abdomen) normal bowel sounds, soft, nontender, no hepatosplenomegaly Musculoskeletal Extremities: extremities normal to inspection; no cyanosis and no clubbing Skin no rashes, warm and dry Neurologic moves all extremities and awake; no focal motor deficits Psychiatric A+Ox3, euthymic affect Lymphatic no lymphedema Discharge Data Allergies Allergy/AdvReac Type Severity Reaction Status Date / Time No Known Allergies Allergy Mild Verified 09/23/21 02:06 Consultations 09/23/21 01:08 ED Decision to Admit Stat Hospital Course (1) Pneumonia: 81 year old male w/ COPD, DM2, HTN, hypothyroidism, and tobacco use disorder who presents w/ COPD exacerbation, w/ 2 days on 2 months of worsening dyspnea and sputum. FOund to have PNA on CXR -Chest x-ray with bilateral airspace opacities - leukocytosis of 23.77 noted on admission with neutrophilia, w/ no recent steroid use. WBC count continues to be trending downward now He is much improved since admission -Sputum culture-growing moderate normal hao Blood cultures-no growth to date greater than 48 hours - will continue course of IV Cefepime and change to po azithro x 5 day course; reviewed chart history; has had multiple recent copd exacerbation stays, most recently 05/2021 and 06/2021. - patient did wean off the 1L at rest, 3L w/ exertion O2 that he was rx'd after last admission, but it appears his dyspnea symptoms never fully resolved, now requiring 2-3LNC at rest - as such will cover for pseudomonas given possibility of HCAP -Continue with IV Solu-Medrol for COPD exacerbation given wheezing but is improving today--> changed to p.o. prednisone for tomorrow - duonebs and pulmcort respules - mucinex q12 - incentive spirom. flutter valve - titrate O2 goal of 90% -Follow chest x-ray PA/LAT in the morning -Follow CBC, BMP in the morning -Speech therapy consultation appreciated-he underwent a FEES instrumental swallow study-negative for aspiration (2) COPD exacerbation: With wheezing and hypoxia-both now improving Treating with nebulizers, inhaled corticosteroids, systemic corticosteroids Azithromycin for atypicals as above Encouraged smoking cessation (3) Sepsis: Sepsis, POA -- Leukocytosis, tachycardia, pneumonia on admission. Resolved Blood pressures are stable (4) Hypoxia: Acute respiratory failure with hypoxia secondary to COPD exacerbation pneumonia-improving Now weaned down to 1 L nasal cannula Asked nurse to ambulate patient with pulse ox today and try to wean off oxygen Supplemental O2 to keep pulse ox greater than 88-90% Will need a two-step prior to discharge (5) COPD with emphysema: - holding home regimen - duonebs and pulmcort respules while inpatient (6) Type 2 diabetes mellitus without complication: Hemoglobin A1c is very well controlled at 6.7% basal, bolus regimen while inpatient With hyperglycemia secondary to corticosteroids now improving with increasing doses of insulin, however remains with some blood sugars greater than 200- tighten down NovoLog sliding scale and increase Lantus today He has lost 30 bs in the last 3 months and feels very fatigued since starting on Victoza injections-holding for now and plan to hold after discharge to see if this helps him feel better (7) Hypothyroidism: - continue home levothyroxine TSH here normal at 0.539 (8) Tobacco use: - nicotine patch ordered -Counseled on cessation which she is committed to doing His 30 pound weight loss in the last 3 months is most likely secondary to recent starting of Victoza and Jardiance as an outpatient, however he is at risk for malignancy given history of smoking Follow chest x-ray or even chest CT to resolution as an outpatient to ensure no underlying malignancy (9) Hypertension: - continue home HCTZ Continue to hold home losartan due to soft blood pressures DVT prophylaxis Lovenox Disposition-continued stay on medical/surgical unit, but improving. Likely dc to home tomorrow Discharge Plan Discharge Items Patient Disposition: Home - Self-Care Reason For Visit: COPD EXACERBATION Discharge Diagnosis: Pneumonia, COPD exacerbation, Acute respiratory failure with hypoxia Condition on Discharge: Good Activity: As commented below Lifting: Gradually increase as tolerated Bathing: No limitations Exercise/Sports: Gradually increase as tolerated Non-emergency contact: Primary Care Provider and Fern Picker Call non-emergency contact if: you have any medication questions, your symptoms worsen, you have a fever and your temperature is above 101 Follow-up/Referrals: Dillon Griffin MD [Physician] - (Please follow up within 2-3 weeks) Kimberlee Syed MD [Primary Care Provider] - 10/08/21 1:30 pm (APPT WITH TEODORO ESPINOSA PA-C. *OFFICE WILL CALL IF THEY HAVE A CANCELLATION.) Diet: Carb Consistent or DM2 and Heart Healthy Addtl Attending Provider Instructions: Please finish out the antibiotics and prednisone taper as prescribed. Continue your usual daily inhalers for COPD and use your "rescue" inhaler every 6 hours for the next few days. You were weaned off oxygen and will not need any once you go home. Follow up with Dr. Griffin of Pulmonology within 2-3 weeks. He can order you a chest xray to be done in 4-6 weeks to ensure your pneumonia has cleared up. As we discussed, I encourage you to continue to not smoke cigarettes once you return home. Keep up the good work! You were started on the nasal steroid spray called Flonase to potentially help gain back your sense of taste and smell. It was a pleasure taking care of you, Beatriz Holder M.D. Pending Studies at Discharge: Yes (Final blood culture results-no growth to date) Stand-Alone Forms: My [facility], Smoking Cessation Medications and DC Order Prescriptions: New fluticasone propionate 50 mcg/actuation Adrian,Suspension 2 spray NA DAILY Qty: 16 RF: 0 prednisone 10 mg tablet 40 mg PO DAILY Qty: 10 RF: 0 guaifenesin [Mucinex] 600 mg Tablet Extended Release 12hr 600 mg PO Q12H Qty: 60 RF: 0 levofloxacin 750 mg tablet 750 mg PO DAILY 3 Days Qty: 3 RF: 0 Continued tiotropium bromide 2.5 mcg/actuation mist 2 puff inhalation DAILY Qty: 1 RF: 11 Dulera 200-5 mcg/actuation HFA aerosol inhaler 2 puff inhalation BID Qty: 13 RF: 5 metformin 1,000 mg tablet extended release 24hr 1,000 mg PO BID Qty: 180 RF: 3 pioglitazone 45 mg tablet 45 mg PO DAILY Qty: 90 RF: 3 ipratropium-albuterol 0.5 mg-3 mg(2.5 mg base)/3 mL solution for nebulization 3 ml inhalation Q4H PRN (Reason: shortness of breath or wheezing) Qty: 180 RF: 1 (DME) ZinMobiTouch Ultra Test Strip See Rx Instructions .Route Qty: 200 RF: 3 Sutab 1.479-0.188- 0.225 gram tablet See Rx Instructions .Route .COMPLEX Qty: 24 RF: 0 albuterol sulfate 90 mcg/actuation HFA aerosol inhaler 1 inh inhalation QID PRN (Reason: shortness of breath or wheezing) Qty: 18 RF : 0 hydrochlorothiazide 25 mg tablet 25 mg PO DAILY Qty: 90 RF: 3 atorvastatin 20 mg tablet 20 mg PO DAILY Qty: 90 RF: 3 levothyroxine 88 mcg tablet 88 mcg PO DAILY Qty: 90 RF: 0 losartan 100 mg tablet 100 mg PO DAILY Qty: 90 RF: 3 empagliflozin 25 mg tablet 25 mg PO DAILY Qty: 90 RF: 3 (DME) pen needle, diabetic [Novofine 32] 32 gauge x 1/4" needle See Rx Instructions .Route Qty: 100 RF: 0 liraglutide 0.6 mg/0.1 mL (18 mg/3 mL) pen injector See Rx Instructions subcut .COMPLEX Qty: 9 RF: 3 aspirin 81 mg Tablet,Delayed Release (Dr/Ec) 81 mg PO DAILY RF: 0 Discharge Orders: Discharge Order (Routine); Ordered 09/27/21 Ordered By: Beatriz Sandoval/Other Patient Handouts: Managing Type 2 Diabetes Admission Data Admit Date/Time: 09/23/21 03:10 Attending Provider: Beatriz Holder Admit Provider: Lázaro Alexandre Primary Care Provider: Kimberlee Syed Other Providers: Jayme Obrien Coding Diagnoses Pneumonia J18.9 Laterality: bilateral Lung location: lower lobe of lung Pneumonia type: due to unspecified organism COPD exacerbation J44.1 Sepsis A41.9 Hypoxia R09.02 COPD with emphysema J43.9 Type 2 diabetes mellitus without complication E11.9 Hypothyroidism E03.9 Tobacco use Z72.0 Hypertension I10
[2021-09-27] MEDS: guaiFENesin 600 MG TABCR PO SCH (12:03)
== END 2021-09-27 13:15 | disposition home or self-care (01) | DRG 871 ==
LOC: ED 22:01 → SUATTDRO 09-23 03:10 → EDINP 09-23 03:10 → 2W 09-23 04:10 → 3W 09-25 00:31

== ENCOUNTER 2022-05-02 02:30 | Inpatient (IN) ==
[2022-05-02] MEDS ORDERED: HYDROmorphone INJ 1 MG/ML SYRINGE IV STA (03:04)
[2022-05-02] MEDS ORDERED: ONDANSETRON INJ 2 MG/ML 2 ML VIAL IV STA (03:04)
[2022-05-02 03:26] LABS: Basophils % (auto) 0.6 %; Eosinophils # (auto) 0.09 K/uL (0-0.50); Eosinophils % (auto) 0.5 %; Hemoglobin 15.9 g/dl (14.0-18.0); Immature Granulocytes % (auto) 0.6 %; Lymphocytes # (auto) 1.11 K/uL (1.2-3.4); Lymphocytes % (auto) 6.7 %; Mean Corpuscular Hemoglobin 30.3 pg (25.0-34.0); Mean Corpuscular Hgb Conc 33.1 g/dL (32.0-36.0); Mean Corpuscular Volume 91.4 fL (80.0-100.0); Mean Platelet Volume 10.6 fL (9.4-12.4); Monocytes # (auto) 1.54 K/uL (0.24-0.82); Monocytes % (auto) 9.3 %; Neutrophils # (auto) 13.64 K/uL (1.4-6.5); Neutrophils % (auto) 82.3 %; Platelet Count 346 K/uL (130-400); RDW Coefficient of Variation 13.8 % (11.5-14.5); Red Blood Count 5.25 M/uL (4.63-6.08); White Blood Count 16.58 K/ul (4.8-10.8)
[2022-05-02 03:44] LABS: Albumin Globulin Ratio 1.4 (0.9-2); Albumin Level 4.3 gm/dl (3.4-5.0); BUN Creatinine Ratio 31.6 (10-20); Bilirubin,Total 1.2 mg/dl (0.2-1.0); C Reactive Protein 14.35 mg/dl (0-0.5); Calcium 10.1 mg/dl (8.5-10.1); Creatinine Clr Calc Pharmacy 93.3 ml/min; Est GFR (African American) 112.4 ml/min; Globulin 3.1 gm/dl (2.5-4.0); Potassium 3.6 mmol/L (3.5-5.1); Total Protein 7.4 gm/dl (6.0-8.3)
[2022-05-02] MEDS ORDERED: KETOROLAC 30 MG/ML VIAL IV ONE (03:59)
[2022-05-02 05:39] LABS: Troponin I High Sensitivity 11.7 pg/ml (0-20)
[2022-05-02 05:57] LABS: Lyme Ab IgG w/WB Rflx Negative (Negative); Lyme Ab IgM w/WB Rflx Negative (Negative)
--- NOTE | 2022-05-02 05:57 | Emergency Department Note ---
Impression & Plan Intractable pain, Cardiac dysrhythmia Admit to the [facility] ED Provider Note NAME: KATHERYN TORREZ JR AGE: 81 SEX: M ARRIVES VIA: Ambulance INFORMANT: Patient ED PROVIDER(S): Cherelle Gonzales DO CHIEF COMPLAINT: Neck pain PLAN: Disposition: Admit to the [facility] Condition: Stable MEDICAL DECISION MAKING: This is an 81-year-old male patient who presents to the emergency department with severe neck and upper back pain. While here for that complaint, the patient had multifocal PVCs, couplets, bigeminy, and a run of V. tach. His pain was managed using IV Dilaudid and Toradol. He had moderate relief of his discomfort with those medications. Patient had mild leukocytosis with significant elevation to his C-reactive protein and sedimentation rate. He had a normal troponin. Otherwise his twelve-lead EKG was unremarkable. [facility] scanning of the neck and chest as the patient does have a long smoking history, weight loss over the past year and a moist cough. Triage Nursing notes reviewed and agree with them. Prior medical records reviewed Vital Signs: reviewed and remarkable for no significant abnormalities Differential diagnosis: Cervical strain; inflammatory reaction; Lyme disease ER treatment provided: IV Dilaudid IV Toradol IV Zofran Diagnostics interpreted by me: ECG: Normal sinus rhythm at a rate of [address] segment elevation or signs of ischemia. There is no ectopy. Cardiac Monitoring: Sinus rhythm at a rate of 69. The patient was having episodes of multifocal PVCs, bigeminy, trigeminy and had a run of V. tach Laboratory studies: See below HPI: 81/M arrives for evaluation of neck pain, upper back pain., rib cage pain. The patient developed significant discomfort in his neck, upper back and rib cage over the past 2 days. Coincidentally he had received his flu vaccine prior to the symptoms developing. He has been vaccinated against flu in previous years with no difficulties. Patient states the pain has become so severe that he is unable to move his neck in a flexion, extension, sidebending or rotation direction without having severe pain. He has been unable to sleep because of the pain and not able to lay his head down on a pillow or a recliner. The patient does have a chronic cough from smoking and has not been able to effectively cough because of the pain in the upper back and rib cage. ROS: See above HPI for pertinent positives & negatives. A total of 10 systems reviewed and were otherwise negative. PAST MEDICAL HISTORY:See Below PAST SURGICAL HISTORY:See Below FAMILY HISTORY:See Below SOCIAL HISTORY:See Below HOME MEDICATIONS:See list ALLERGIES:None VITALS:See Below PHYSICAL EXAMINATION: HEENT: Head - normocephalic and atraumatic. Pupils are equal, round, and reactive to light. Extraocular eye muscles are intact, and sclera are anicteric. Nose - moist nasal mucosa without discharge. Mouth - moist buccal mucosa. Oropharynx is nonerythematous and there is no tonsillar exudate or edema noted. Neck: Supple; no JVD or thyromegaly. The patient does have exquisite tenderness with even light palpation to the platysma muscle, cervical spinous muscles, and trapezius muscle. Heart: Regular rate and rhythm. There is a normal S1 and S2 with no murmurs, clicks, or gallops appreciated. Lungs: Rhonchi in all lung holland with no significant wheezing Chest wall: No obvious skin lesions. There is pain to palpation bilaterally to the rib cage. Abdomen: Soft, completely nontender, nondistended, with good bowel sounds. T here are no palpable pulsatile masses or hepatosplenomegaly. There is no guarding, rigidity, or rebound noted. Extremities: No evidence of cyanosis, clubbing, or edema. There are easily palpable peripheral pulses. Skin: warm and dry with good turgor and no rashes. ED COURSE: Times/Reassessments: 255: Patient was evaluated in room A-10. A complete history and physical was performed. IV lock was initiated and labs are drawn as above. The patient was medicated with IV Dilaudid and IV Zofran for pain which gave him moderate relief for the discomfort in his neck. The patient did become slightly hypoxic and had to be placed on supplemental oxygen. An order was placed for continuous cardiac monitoring. The patient was in a normal sinus rhythm at a rate of 69 but was having multifocal PVCs. Patient was given a dose of IV Toradol for the pain which also did give him some relief of his discomfort. He then went on to have a run of V. tach while he was sleeping. When the patient was awake, he still had very limited range of motion due to the pain in his neck and upper back. He was still extremely uncomfortable secondary to the intractable pain. I discussed the case with the [facility] Hospitalist. The patient denies any recent tick bites [place] Cherelle Gonzales, DO Past Med/Surg History Medical History Acquired deviated nasal septum Actinic keratosis Chronic diarrhea COPD (chronic obstructive pulmonary disease) case management patient COPD with emphysema Hyperlipidemia Hypersomnolence Hypertension Hypothyroidism Incidental lung nodule, > 3mm and < 8mm Type 2 diabetes mellitus without complication Surgical History History of appendectomy History of bilateral cataract extraction History of colonoscopy History of Mohs micrographic surgery for skin cancer History of tonsillectomy History of wisdom tooth extraction Hx of vasectomy Family History Other No family history of adverse response to anesthesia Denies family history of Ovarian cancer Prostate cancer Myocardial infarction Breast cancer Colorectal cancer Social History Smoking Status: Current every day smoker Tobacco Type: Cigarettes Cigarettes Per Day: 1/2 pack; Second Hand Exposure: No; Hx Alcohol Use: No Hx Substance Use: No Preferred Language: Colombian Communication Ability: Effective Visual Impairment: No Limitations Hearing Ability: Normal Grinder Operator Tool Required: No Beliefs That Will Affect Care: None marital status: Unknown Current Living Situation: Alone current occupational status: retired Feels Safe at Home: Yes Dental Care, Regularly: Yes Physical Activity Frequency: 1-2 Times per Week Seatbelt Use: always Sunscreen Use: No Assistive Devices: None Allergies Allergies Allergy/AdvReac Type Severity Reaction Status Date / Time No Known Allergies Allergy Mild Verified 05/02/22 02:43 Home Meds Home Medications Medication Instructions Recorded Confirmed aspirin 81 mg tablet,delayed 81 mg PO QAM 05/14/21 05/02/22 release atorvastatin 20 mg tablet 20 mg PO QAM 10/09/21 05/02/22 fluticasone propionate 50 2 spray NA QAM 10/09/21 05/02/22 mcg/actuation nasal spray,suspension hydrochlorothiazide 25 mg tablet 25 mg PO QAM 10/09/21 05/02/22 losartan 100 mg tablet 100 mg PO QAM 10/09/21 05/02/22 tiotropium bromide 2.5 2 puff inhalation QPM 10/09/21 05/02/22 mcg/actuation mist for inhalation Previous Rx's Medication Instructions Recorded mometasone-formoterol HFA 200 2 puff inhalation BID #13 grams 07/04/21 mcg-5 mcg/actuation aerosol inhaler (Dulera) metformin 1,000 mg tablet,extended 1,000 mg PO BID #180 tabs 08/12/21 release 24hr blood sugar diagnostic (OneTouch #200 ea 09/17/21 Ultra Test strips) guaifenesin 600 mg tablet, 600 mg PO Q12H #60 tabs 09/27/21 extended release 12 hr (Mucinex) empagliflozin 25 mg tablet 25 mg PO QAM #90 tabs 10/21/21 pen needle, diabetic 32 gauge x #100 ea 10/21/2106/11" (Novofine 32) levothyroxine 88 mcg tablet 88 mcg PO QAM #90 tabs 12/03/21 albuterol sulfate 90 mcg/actuation 2 inh inhalation QID PRN shortness 04/09/22 aerosol inhaler of breath or wheezing #18 grams ipratropium 0.5 mg-albuterol 3 mg 3 ml inhalation Q4H PRN shortness 04/25/22 (2.5 mg base)/3 mL nebulization of breath or wheezing #180 vials soln Results & Data (ED) Vital Signs Vital Signs - 24 hr 05/02/22 02:34 05/02/22 03:22 05/02/22 03:27 Temperature 37.4 C Temperature Source Oral Pulse Rate 25 L Pulse Rate [Finger] 79 Respiratory Rate 24 22 Respiratory Effort / Characteristics Non-Labored Spontaneous Respiratory Depth Normal Respiratory Pattern Regular Blood Pressure 119/75 Blood Pressure [Right Arm] 116/76 Blood Pressure Mean 89 Blood Pressure Mean [Right Arm] 89 Pulse Oximetry 94 76 L 97 Oxygen Delivery Method Room Air Nasal Cannula Nasal Cannula Oxygen Flow Rate 0 4 Sepsis Recent Fever Within 48 Hours No Sepsis New/Unexplained Change in Mental Status No Sepsis Action Taken by Nursing No Action Required Oxygen Flow Rate - Titration 4 Fraction of Inspired Oxygen - Titration Pulse Oximetry Post Tiitration 95 05/02/22 05:12 05/02/22 06:03 05/02/22 06:03 Temperature Temperature Source Pulse Rate Pulse Rate [Finger] 69 63 Respiratory Rate 20 19 Respiratory Effort / Characteristics Non-Labored Spontaneous Respiratory Depth Normal Respiratory Pattern Regular Blood Pressure Blood Pressure [Right Arm] 107/67 107/66 Blood Pressure Mean Blood Pressure Mean [Right Arm] 80 79 Pulse Oximetry 95 94 Oxygen Delivery Method Nasal Cannula Nasal Cannula Nasal Cannula Oxygen Flow Rate 2 2 4 Sepsis Recent Fever Within 48 Hours Sepsis New/Unexplained Change in Mental Status Sepsis Action Taken by Nursing Oxygen Flow Rate - Titration Fraction of Inspired Oxygen - Titration 2 Pulse Oximetry Post Tiitration 94 Laboratory Data Result diagrams: 05/02/22 02:38 05/02/22 02:38 Lab Results 05/02/22 05/02/22 05/02/22 Range/Units 02:38 02:38 02:38 WBC 16.58 H (4.8-10.8) K/ul RBC 5.25 (4.63-6.08) M/uL Hgb 15.9 (14.0-18.0) g/dl Hct 48.0 (40.1-51.0) % MCV 91.4 (80.0-100.0) fL MCH 30.3 (25.0-34.0) pg MCHC 33.1 (32.0-36.0) g/dL RDW Std Deviation 47.0 H (36.4-46.3) fL RDW Coeff of Samantha 13.8 (11.5-14.5) % Plt Count 346 (130-400) K/uL MPV 10.6 (9.4-12.4) fL Immature Gran % (Auto) 0.6 % Neut % (Auto) 82.3 % Lymph % (Auto) 6.7 % Mercer % (Auto) 9.3 % Eos % (Auto) 0.5 % Baso % (Auto) 0.6 % Neut # (Auto) 13.64 H (1.4-6.5) K/uL Lymph # (Auto) 1.11 L (1.2-3.4) K/uL Mercer # (Auto) 1.54 H (0.24-0.82) K/uL Eos # (Auto) 0.09 (0-0.50) K/uL Baso # (Auto) 0.10 (0-0.2) K/uL Immature Gran # (Auto) 0.10 H (0.00-0.02) K/uL ESR 56 H (0-20) mm/hr Sodium 138 (136-145) mmol/L Potassium 3.6 (3.5-5.1) mmol/L Chloride 100 (98-107) mmol/L Carbon Dioxide 28 (21-32) mmol/L Anion Gap 10 (3-11) BUN 18 (6-23) mg/dl Creatinine 0.57 L (0.6-1.4) mg/dl Est Cr Clr Drug Dosing 93.3 ml/min Est GFR ( Amer) 112.4 ml/min Est GFR (Non-Af Amer) 97.0 ml/min BUN/Creatinine Ratio 31.6 H (10-20) Glucose 156 H (70-99(Fasting)) mg/dl Calcium 10.1 (8.5-10.1) mg/dl Magnesium (1.7-2.4) mg/dl Total Bilirubin 1.2 H (0.2-1.0) mg/dl AST 17 (13-39) U/L ALT 21 (7-52) U/L Alkaline Phosphatase 55 (34-104) U/L Troponin I High Sens 11.7 (0-20) pg/ml C-Reactive Protein 14.35 H (0-0.5) mg/dl Total Protein 7.4 (6.0-8.3) gm/dl Albumin 4.3 (3.4-5.0) gm/dl Globulin 3.1 (2.5-4.0) gm/dl Albumin/Globulin Ratio 1.4 (0.9-2) Lyme Disease IgG Ab (Negative) Lyme Disease IgM Ab (Negative) SARS-CoV-2, RNA, NAAT (NEGATIVE) 05/02/22 05/02/22 05/02/22 Range/Units 02:38 02:38 05:18 WBC (4.8-10.8) K/ul RBC (4.63-6.08) M/uL Hgb (14.0-18.0) g/dl Hct (40.1-51.0) % MCV (80.0-100.0) fL MCH (25.0-34.0) pg MCHC (32.0-36.0) g/dL RDW Std Deviation (36.4-46.3) fL RDW Coeff of Samantha (11.5-14.5) % Plt Count (130-400) K/uL MPV (9.4-12.4) fL Immature Gran % (Auto) % Neut % (Auto) % Lymph % (Auto) % Mercer % (Auto) % Eos % (Auto) % Baso % (Auto) % Neut # (Auto) (1.4-6.5) K/uL Lymph # (Auto) (1.2-3.4) K/uL Mercer # (Auto) (0.24-0.82) K/uL Eos # (Auto) (0-0.50) K/uL Baso # (Auto) (0-0.2) K/uL Immature Gran # (Auto) (0.00-0.02) K/uL ESR (0-20) mm/hr Sodium (136-145) mmol/L Potassium (3.5-5.1) mmol/L Chloride (98-107) mmol/L Carbon Dioxide (21-32) mmol/L Anion Gap (3-11) BUN (6-23) mg/dl Creatinine (0.6-1.4) mg/dl Est Cr Clr Drug Dosing ml/min Est GFR ( Amer) ml/min Est GFR (Non-Af Amer) ml/min BUN/Creatinine Ratio (10-20) Glucose (70-99(Fasting)) mg/dl Calcium (8.5-10.1) mg/dl Magnesium 2.0 (1.7-2.4) mg/dl Total Bilirubin (0.2-1.0) mg/dl AST (13-39) U/L ALT (7-52) U/L Alkaline Phosphatase (34-104) U/L Troponin I High Sens (0-20) pg/ml C-Reactive Protein (0-0.5) mg/dl Total Protein (6.0-8.3) gm/dl Albumin (3.4-5.0) gm/dl Globulin (2.5-4.0) gm/dl Albumin/Globulin Ratio (0.9-2) Lyme Disease IgG Ab Negative (Negative) Lyme Disease IgM Ab Negative (Negative) SARS-CoV-2, RNA, NAAT NEGATIVE (NEGATIVE) Administered Medications Aspirin (Aspirin 81 Mg Ectab) 81 mg PO QAM [facility] Stop: 06/01/22 08:59 Last Admin: 05/02/22 09:04 Dose: 81 mg Documented By: FABIANA Atorvastatin Calcium (Atorvastatin 20 Mg Tab) 20 mg PO QAM [facility] Stop: 06/01/22 08:59 Last Admin: 05/02/22 09:04 Dose: 20 mg Documented By: FABIANA Fluticasone/Vilanterol (Fluticasone/Vilanterol 200/25mcg 14 Puffs/Inhaler) 1 puffs INH DAILY [facility] Stop: 06/01/22 08:59 Last Admin: 05/02/22 09:03 Dose: 1 puffs Documented By: FABIANA Guaifenesin (Guaifenesin 600 Mg Tabcr) 600 mg PO Q12H [facility] Stop: 06/01/22 08:59 Last Admin: 05/02/22 09:04 Dose: 600 mg Documented By: FABIANA Hydromorphone HCl (Hydromorphone Inj 0.5 Mg/0.5 Ml Syr) 0.5 mg IV Q3H PRN PRN Reason: Severe Pain Stop: 05/16/22 06:29 Last Admin: 05/02/22 16:17 Dose: 0.5 mg Documented By: FABIANA Ampicillin Sodium/Sulbactam Sodium 3,000 mg/ Sodium Chloride 108 mls @ 200 mls/hr IV Q6H [facility]; Protocol Stop: 05/09/22 10:29 Last Infusion: 05/02/22 17:34 Dose: 0 mls/hr Documented By: Admin: 05/02/22 16:16 Dose: 200 mls/hr Documented By: Infusion: 05/02/22 11:36 Dose: 0 mls/hr Documented By: Admin: 05/02/22 11:02 Dose: 200 mls/hr Documented By: FABIANA Azithromycin 500 mg/ Dextrose 255 mls @ 127.5 mls/hr IV Q24H [facility] Stop: 05/05/22 07:59 Last Infusion: 05/02/22 11:10 Dose: 0 mls/hr Documented By: Admin: 05/02/22 09:01 Dose: 127.5 mls/hr Documented By: FABIANA Insulin Aspart (Insulin Aspart Per Unit) 0 units SC ACHS [facility] Stop: 06/01/22 07:29 Last Admin: 05/02/22 16:54 Dose: Not Given Documented By: Admin: 05/02/22 12:02 Dose: 3 units Documented By: FABIANA Co-signed By: Admin: 05/02/22 09:31 Dose: Not Given Documented By: FABIANA Losartan Potassium (Losartan Potassium 50 Mg Tab) 100 mg PO QAM [facility] Stop: 06/01/22 08:59 Last Admin: 05/02/22 09:04 Dose: 100 mg Documented By: FABIANA Discontinued Medications Hydromorphone HCl (Hydromorphone Inj 1 Mg/Ml Syringe) 1 mg IV NOW STA Stop: 05/02/22 03:05 Last Admin: 05/02/22 03:09 Dose: 1 mg Documented By: SULMA Potassium Chloride (K Shravan / Wtr) 10 meq in 100 mls @ 100 mls/hr IV Q1H [facility] Stop: 05/02/22 09:14 Last Infusion: 05/02/22 12:47 Dose: 0 mls/hr Documented By: Admin: 05/02/22 11:36 Dose: 100 mls/hr Documented By: Infusion: 05/02/22 08:55 Dose: 0 mls/hr Documented By: Admin: 05/02/22 07:27 Dose: 100 mls/hr Documented By: SAMY Potassium Chloride/Sodium Chloride (Normal Saline W/20 Meq Kcl) 20 meq in 1,000 mls @ 80 mls/hr IV .[id number] [facility] Stop: 06/01/22 09:14 Last Infusion: 05/02/22 18:17 Dose: 0 mls/hr Documented By: Admin: 05/02/22 13:04 Dose: 80 mls/hr Documented By: FABIANA Ioversol (Optiray 350 100ml) 100 ml IV ONCE ONE Stop: 05/02/22 06:33 Last Admin: 05/02/22 06:32 Dose: 85 ml Documented By: HERNAN Ketorolac Tromethamine (Ketorolac 30 Mg/Ml Vial) 30 mg IV NOW ONE Stop: 05/02/22 04:00 Last Admin: 05/02/22 04:02 Dose: 30 mg Documented By: SULMA Ondansetron HCl (Ondansetron Inj 2 Mg/Ml 2 Ml Vial) 4 mg IV NOW STA Stop: 05/02/22 03:05 Last Admin: 05/02/22 03:09 Dose: 4 mg Documented By: SULMA Imaging Data Radiologist's Impression: Soft Tissue Neck CT 05/02/22 06:03 CT SCAN OF THE NECK WITH IV CONTRAST CLINICAL HISTORY: Weight loss. Tobacco use. Hoarseness. COMPARISON STUDY: No priors. TECHNIQUE: Following the IV administration of 85 cc of Optiray 350, CT scan of the soft tissues of the neck was performed from the skull base to the upper chest. Images are reviewed in the axial, sagittal, and coronal planes. IV contrast was administered without complication. A dose lowering technique was utilized adhering to the principles of ALARA. FINDINGS: Pharynx: The pharyngeal soft tissues are normal as visualized. The pharyngeal airway is widely patent. There is no evidence of mass lesion. The vocal cords are symmetric. The parapharyngeal fat is well maintained. The prevertebral/retropharyngeal soft tissues are within normal limits. The epiglottis is normal. Lymphadenopathy: No cervical lymphadenopathy is seen Thyroid: The right lobe is normal in size and heterogeneous in attenuation. The left lobe is diminutive. Salivary glands: The parotid and submandibular glands are within normal limits. Brain parenchyma: The visualized brain parenchyma is normal in appearance noting age related involutional change. Vascular structures: The carotid arteries and jugular veins are patent bilaterally noting atherosclerotic calcification of the carotid bulbs. Skeletal structures: The skeletal structures are osteopenic. Imaged portions of the calvarium at the skull base are within normal limits. The cervical spine appears intact noting mild multilevel spondylosis. No lytic or blastic lesion is seen. Sinuses and mastoids: The paranasal sinuses are clear. There is a right mastoid effusion. The left mastoid air cells are well pneumatized. Lung apices: Emphysematous change and parenchymal scarring is noted in the upper lobes. IMPRESSION: 1. No acute abnormality is identified. 2. Emphysema. ACT 112: Negative or not required by law. Electronically signed by: Fabian Mcneil M.D. 05/02/2022 7:[address] 05/02/22 06:06 CT SCAN OF THE CHEST WITH IV CONTRAST CLINICAL HISTORY: Weight loss. Tobacco use. COMPARISON STUDY: Chest x-ray dated 09/27/2021. Chest CT dated 06/11/2021. TECHNIQUE: Following the IV administration of 85 cc of Optiray 350, CT scan of the thorax was performed from the thoracic inlet to the upper abdomen. Images are reviewed in the axial, sagittal, and coronal planes. IV contrast was administered without complication. A dose lowering technique was utilized adhering to the principles of ALARA. CT DOSE: 675.88 mGy.cm FINDINGS: Thyroid: Imaged portions of the thyroid gland are normal in size and attenuation. Thoracic aorta: There is atherosclerotic calcification of the thoracic aorta, which is normal in caliber and demonstrates 4-vessel variant arch anatomy. No dissection is seen. Pulmonary vasculature: The pulmonary trunk is normal in caliber. There are no filling defects identified in the central pulmonary vessels to indicate pulmonary embolus. Note that this examination was not protocoled for evaluation of the pulmonary arteries. Heart: The heart is normal in size noting trace pericardial effusion. The coronary arteries are densely calcified. Lungs and pleural spaces: There is advanced emphysema. The trachea and central airways appear clear. Peribronchial thickening is seen in the lower lobes with intraluminal secretions/debris. There is bibasilar airspace consolidation, right greater than left. An approximately 2.6 cm patchy opacity in the right upper lobe is new from 06/11/2021 and is also likely inflammatory. Mediastinum: There are mildly enlarged mediastinal lymph nodes An AP window node measures 14 mm short axis. Sandrine: Clear. Axillae: There is no axillary lymphadenopathy. Upper abdomen: A 1.4 cm cyst is noted in the upper pole of the right kidney. Partially visualized upper abdominal viscera is otherwise within normal limits. Skeletal structures: The skeletal structures are osteopenic. Degenerative change is noted in the shoulders and thoracic spine. No lytic or blastic bony lesions are seen. IMPRESSION: 1. Advanced emphysema. 2. Dependent airspace consolidation is seen at both lung bases, right greater t falcon left. The appearance is typical for pneumonia/aspiration pneumonitis. Clinical correlation will be required and radiographic follow-up to resolution is recommended. 3. A 2.6 cm patchy opacity in the right upper lobe is new from 06/11/2021 and is also likely inflammatory. A 3-4 month follow-up chest CT is recommended to document resolution. 4. Peribronchial thickening images seen in the lower lobes with intraluminal fluid/debris. Correlate clinically for evidence of aspiration. 5. Prominent mediastinal lymph nodes are likely reactive. 6. Additional findings as above. ACT 112: Negative or not required by law. Electronically signed by: Fabian Mcneil M.D. 05/02/2022 7:04 AM Discharge Plan Visit Data Chief Complaint: Neck Injury/Pain Stated Complaint: PAIN W/ MOVEMENT ED Provider: Cherelle Gonzales Discharge Problem: Intractable pain, Cardiac dysrhythmia Patient Disposition: Admitted As Inpatient Discharge Instructions Interventions: ED Discharge Assessment Last Done: 05/02/22 07:25 : Cardiac dysrhythmia Qualifiers: Arrhythmia type: ventricular tachycardia, unspecified Qualified Code(s): I47.20 - Ventricular tachycardia, unspecified
[2022-05-02] MEDS ORDERED: HYDROmorphone INJ 0.5 MG/0.5 ML SYR IV PRN (06:30)
[2022-05-02] MEDS ORDERED: OPTIRAY 350 100ml IV ONE (06:32)
--- NOTE | 2022-05-02 06:32 | History & Physical Report ---
Date of Service May 02, 2022 Assessment & Plan (1) Recent unintentional weight loss over several months: Plan: Recent unintentional weight loss- Patient reports over 40 pound weight loss since the beginning of this year Patient has a hoarse voice, swollen uvula, concern regarding possibility of head neck cancer Ordered CT of soft tissues of neck and CT of chest N.p.o. except essential medications (2) Cardiac dysrhythmia: Plan: Reportedly had episode of nonsustained V. tach upon arrival, but monitored this point only shows occasional ventricular couplets Potassium 3.6, will give 20 mEq IV replacement and then recheck Add magnesium level to current laboratories and replace as needed The patient will be admitted to telemetry for serial cardiac enzymes, serial EKG's, cardiac rhythm monitoring and a 2-D echocardiogram with Dopplers. (3) Frequent PVCs: (4) COPD with emphysema: Plan: Continue usual inhalers DuoNebs every 2 hours as needed (5) Type 2 diabetes mellitus without complication: Plan: Hold Jardiance and metformin Placed on Accu-Cheks before meals and at bedtime/every 6 hours with NovoLog SSI Check hemoglobin A1c (6) Hypertension: Plan: Hold HCTZ due to borderline potassium continue losartan 100 mg every morning (7) Hypothyroidism: Plan: Continue levothyroxine 88 mcg (8) Hyperlipidemia: Plan: Continue atorvastatin 20 mg daily (9) Tobacco use: Plan: Tobacco cessation counseling NicoDerm patch if desired History of Present Illness Chief Complaint: The patient presents to the emergency department with complaint of severe neck, upper back, anterior and posterior shoulder pain. Primary Care Provider: Kimberlee Syed MD The patient is a 81-year-old male with a past medical history including hyperlipidemia, tobacco abuse, frequent PVCs, chronic sinusitis, chronic dyspnea, hypothyroidism, hypertension, COPD with emphysema and type 2 diabetes mellitus without complication. The patient reports the emergency department with severe pain as noted above. He notes a 40+ pound weight loss since early this year. He continues have issues with shortness of breath. He denies any difficulty with swallowing. He sees pulmonology for COPD with emphysema. He follows with his PCP on a regular basis as well. He has been taking all his medications as directed. Allergies Allergy/AdvReac Type Severity Reaction Status Date / Time No Known Allergies Allergy Mild Verified 05/02/22 02:43 Home Medications Medication Instructions Recorded Confirmed Type aspirin 81 mg tablet,delayed 81 mg PO QAM 05/14/21 05/02/22 History release mometasone-formoterol HFA 200 2 puff inhalation BID #13 grams 07/04/21 05/02/22 Rx mcg-5 mcg/actuation aerosol inhaler (Dulera) metformin 1,000 mg tablet,extended 1,000 mg PO BID #180 tabs 08/12/21 05/02/22 Rx release 24hr blood sugar diagnostic (OneTouch #200 ea 09/17/21 04/29/22 Rx Ultra Test strips) guaifenesin 600 mg tablet, 600 mg PO Q12H #60 tabs 09/27/21 05/02/22 Rx extended release 12 hr (Mucinex) atorvastatin 20 mg tablet 20 mg PO QAM 10/09/21 05/02/22 History fluticasone propionate 50 2 spray NA QAM 10/09/21 05/02/22 History mcg/actuation nasal spray,suspension hydrochlorothiazide 25 mg tablet 25 mg PO QAM 10/09/21 05/02/22 History losartan 100 mg tablet 100 mg PO QAM 10/09/21 05/02/22 History tiotropium bromide 2.5 2 puff inhalation QPM 10/09/21 05/02/22 History mcg/actuation mist for inhalation empagliflozin 25 mg tablet 25 mg PO QAM #90 tabs 10/21/21 05/02/22 Rx pen needle, diabetic 32 gauge x #100 ea 10/21/21 04/29/22 Rx 1/4" (Novofine 32) levothyroxine 88 mcg tablet 88 mcg PO QAM #90 tabs 12/03/21 05/02/22 Rx albuterol sulfate 90 mcg/actuation 2 inh inhalation QID PRN shortness 04/09/22 05/02/22 Rx aerosol inhaler of breath or wheezing #18 grams ipratropium 0.5 mg-albuterol 3 mg 3 ml inhalation Q4H PRN shortness 04/25/22 05/02/22 Rx (2.5 mg base)/3 mL nebulization of breath or wheezing #180 vials soln Past Med/Surg History Medical History Acquired deviated nasal septum Actinic keratosis Chronic diarrhea COPD (chronic obstructive pulmonary disease) case management patient COPD with emphysema Hyperlipidemia Hypersomnolence Hypertension Hypothyroidism Incidental lung nodule, > 3mm and < 8mm Type 2 diabetes mellitus without complication Surgical History History of appendectomy History of bilateral cataract extraction History of colonoscopy History of Mohs micrographic surgery for skin cancer History of tonsillectomy History of wisdom tooth extraction Hx of vasectomy Family History Other No family history of adverse response to anesthesia Denies family history of Ovarian cancer Prostate cancer Myocardial infarction Breast cancer Colorectal cancer Social History Smoking Status: Current every day smoker Tobacco Type: Cigarettes Cigarettes Per Day: 1/2 pack; Second Hand Exposure: No; Hx Alcohol Use: No Hx Substance Use: No Preferred Language: Thai Communication Ability: Effective Visual Impairment: No Limitations Hearing Ability: Normal Planning Supervisor Required: No Beliefs That Will Affect Care: None marital status: Unknown Current Living Situation: Alone current occupational status: retired Feels Safe at Home: Yes Dental Care, Regularly: Yes Physical Activity Frequency: 1-2 Times per Week Seatbelt Use: always Sunscreen Use: No Assistive Devices: Nebulizer Review of Systems Review of Systems: The patient denies chest pain, palpitations, lower extremity swelling, sore throat, fevers, chills, sweats, nausea, vomiting, diarrhea , constipation, abdominal pain, pelvic pain, blood in urine or stool, dysuria, urinary frequency or urgency, lightheadedness, dizziness, headache, memory loss, loss of consciousness, rash, abnormal bruising or bleeding, imbalance, focal or generalized weakness, numbness or tingling in arms or legs, generalized arthralgias or myalgias, or night sweats. The review of systems is otherwise negative other than for that already noted above, and at least 10 systems have been reviewed. Physical Exam Physical Exam: The patient is awake, alert and oriented 3, shows neck and upper chest and shoulder contractions, sitting upright in bed and in no acute distress. HEENT--PERRL, EOMI, mucous membranes and oropharynx dry, uvula edematous, erythematous and enlarged Neck--supple. No JVD. No bruits. Thyroid normal, trachea midline, no adenopathy. Heart--normal S1 and S2. No murmurs, rubs or gallops. Lungs--coarse breath sounds bilaterally. No respiratory distress, no accessory muscle use. Abdomen--normal bowel sounds and soft. Nontender. Nondistended, no hernias or masses, no organomegaly. Extremities--no cyanosis or clubbing. No edema. There are good distal pulses b/l. Dermatologic--normal skin turgor, normal color, no abnormal lymph nodes, no rash. Neurologic--cranial nerves II through XII grossly intact. Rheumatologic--normal range of motion. Psychiatric--normal affect. Results & Data Results & Data ([facility]) Vital Signs (Past 12 Hours) Vital Signs Temp Pulse Pulse Resp BP BP Pulse Ox 05/02/22 06:03 05/02/22 06:03 63 19 107/66 94 05/02/22 05:12 69 20 107/67 95 05/02/22 03:27 79 22 116/76 97 05/02/22 03:22 76 L 05/02/22 02:34 37.4 C 25 L 24 119/75 94 O2 Del Method O2 Flow Rate 05/02/22 06:03 Nasal Cannula 4 05/02/22 06:03 Nasal Cannula 2 05/02/22 05:12 Nasal Cannula 2 05/02/22 03:27 Nasal Cannula 4 05/02/22 03:22 Nasal Cannula 0 05/02/22 02:34 Room Air Laboratory Results Laboratory Results WBC 16.58 K/ul (4.8-10.8) H 05/02/22 02:38 RBC 5.25 M/uL (4.63-6.08) 05/02/22 02:38 Hgb 15.9 g/dl (14.0-18.0) 05/02/22 02:38 Hct 48.0 % (40.1-51.0) 05/02/22 02:38 MCV 91.4 fL (80.0-100.0) 05/02/22 02:38 MCH 30.3 pg (25.0-34.0) 05/02/22 02:38 MCHC 33.1 g/dL (32.0-36.0) 05/02/22 02:38 RDW Std Deviation 47.0 fL (36.4-46.3) H 05/02/22 02:38 RDW Coeff of Samantha 13.8 % (11.5-14.5) 05/02/22 02:38 Plt Count 346 K/uL (130-400) 05/02/22 02:38 MPV 10.6 fL (9.4-12.4) 05/02/22 02:38 Immature Gran % (Auto) 0.6 % 05/02/22 02:38 Neut % (Auto) 82.3 % 05/02/22 02:38 Lymph % (Auto) 6.7 % 05/02/22 02:38 [place] % (Auto) 9.3 % 05/02/22 02:38 Eos % (Auto) 0.5 % 05/02/22 02:38 Baso % (Auto) 0.6 % 05/02/22 02:38 Neut # (Auto) 13.64 K/uL (1.4-6.5) H 05/02/22 02:38 Lymph # (Auto) 1.11 K/uL (1.2-3.4) L 05/02/22 02:38 [place] # (Auto) 1.54 K/uL (0.24-0.82) H 05/02/22 02:38 Eos # (Auto) 0.09 K/uL (0-0.50) 05/02/22 02:38 Baso # (Auto) 0.10 K/uL (0-0.2) 05/02/22 02:38 Immature Gran # (Auto) 0.10 K/uL (0.00-0.02) H 05/02/22 02:38 ESR 56 mm/hr (0-20) H 05/02/22 02:38 Sodium 138 mmol/L (136-145) 05/02/22 02:38 Potassium 3.6 mmol/L (3.5-5.1) 05/02/22 02:38 Chloride 100 mmol/L (98-107) 05/02/22 02:38 Carbon Dioxide 28 mmol/L (21-32) 05/02/22 02:38 Anion Gap 10 (3-11) 05/02/22 02:38 BUN 18 mg/dl (6-23) 05/02/22 02:38 Creatinine 0.57 mg/dl (0.6-1.4) L 05/02/22 02:38 Est Cr Clr Drug Dosing 93.3 ml/min 05/02/22 02:38 Est GFR ( Amer) 112.4 ml/min 05/02/22 02:38 Est GFR (Non-Af Amer) 97.0 ml/min 05/02/22 02:38 BUN/Creatinine Ratio 31.6 (10-20) H 05/02/22 02:38 Glucose 156 mg/dl (70-99(Fasting)) H 05/02/22 02:38 Calcium 10.1 mg/dl (8.5-10.1) 05/02/22 02:38 Total Bilirubin 1.2 mg/dl (0.2-1.0) H 05/02/22 02:38 AST 17 U/L (13-39) 05/02/22 02:38 ALT 21 U/L (7-52) 05/02/22 02:38 Alkaline Phosphatase 55 U/L (34-104) 05/02/22 02:38 Troponin I High Sens 11.7 pg/ml (0-20) 05/02/22 02:38 C-Reactive Protein 14.35 mg/dl (0-0.5) H 05/02/22 02:38 Total Protein 7.4 gm/dl (6.0-8.3) 05/02/22 02:38 Albumin 4.3 gm/dl (3.4-5.0) 05/02/22 02:38 Globulin 3.1 gm/dl (2.5-4.0) 05/02/22 02:38 Albumin/Globulin Ratio 1.4 (0.9-2) 05/02/22 02:38 Lyme Disease IgG Ab Negative (Negative) 05/02/22 02:38 Lyme Disease IgM Ab Negative (Negative) 05/02/22 02:38 SARS-CoV-2, RNA, NAAT NEGATIVE (NEGATIVE) 05/02/22 05:18 Code Status & VTE Plan Code Status Full code VTE Prophylaxis Plan VTE Prophylaxis will be ordered: Yes (1) Cardiac dysrhythmia Arrhythmia type: ventricular tachycardia, unspecified Qualified Code(s): I47.20 - Ventricular tachycardia, unspecified
[2022-05-02] MEDS ORDERED: ALBUT/IPRATROP 3MG/0.5MG NEB 3 ML VIAL NEB PRN (06:43)
--- NOTE | 2022-05-02 06:47 | Billing Data ---
Date of Service May 02, 2022 Coding Level of Care Code 04977 Initial Inpt Care Lvl 3
--- NOTE | 2022-05-02 07:06 | CT Scan Report ---
CT SCAN OF THE CHEST WITH IV CONTRAST CLINICAL HISTORY: Weight loss. Tobacco use. COMPARISON STUDY: Chest x-ray dated 09/27/2021. Chest CT dated 06/11/2021. TECHNIQUE: Following the IV administration of 85 cc of Optiray 350, CT scan of the thorax was perform ed from the thoracic inlet to the upper abdomen. Images are reviewed in the axial, sagittal, and bert nal planes. IV contrast was administered without complication. A dose lowering technique was utilize d adhering to the principles of ALARA. CT DOSE: 675.88 mGy.cm FINDINGS: Thyroid: Imaged portions of the thyroid gland are normal in size and attenuation. Thoracic aorta: There is atherosclerotic calcification of the thoracic aorta, which is normal in gail cathy and demonstrates 4-vessel variant arch anatomy. No dissection is seen. Pulmonary vasculature: The pulmonary trunk is normal in caliber. There are no filling defects identif ied in the central pulmonary vessels to indicate pulmonary embolus. Note that this examination was no t protocoled for evaluation of the pulmonary arteries. Heart: The heart is normal in size noting trace pericardial effusion. The coronary arteries are dense ly calcified. Lungs and pleural spaces: There is advanced emphysema. The trachea and central airways appear clear. Peribronchial thickening is seen in the lower lobes with intraluminal secretions/debris. There is bib asilar airspace consolidation, right greater than left. An approximately 2.6 cm patchy opacity in the right upper lobe is new from 06/11/2021 and is also likely inflammatory. Mediastinum: There are mildly enlarged mediastinal lymph nodes An AP window node measures 14 mm short axis. Sandrine: Clear. Axillae: There is no axillary lymphadenopathy. Upper abdomen: A 1.4 cm cyst is noted in the upper pole of the right kidney. Partially visualized upp er abdominal viscera is otherwise within normal limits. Skeletal structures: The skeletal structures are osteopenic. Degenerative change is noted in the shou lders and thoracic spine. No lytic or blastic bony lesions are seen. IMPRESSION: 1. Advanced emphysema. 2. Dependent airspace consolidation is seen at both lung bases, right greater than left. The appearan ce is typical for pneumonia/aspiration pneumonitis. Clinical correlation will be required and radiogr aphic follow-up to resolution is recommended. 3. A 2.6 cm patchy opacity in the right upper lobe is new from 06/11/2021 and is also likely inflammato ry. A 3-4 month follow-up chest CT is recommended to document resolution. 4. Peribronchial thickening images seen in the lower lobes with intraluminal fluid/debris. Correlate clinically for evidence of aspiration. 5. Prominent mediastinal lymph nodes are likely reactive. 6. Additional findings as above. ACT 112: Negative or not required by law. Electronically signed by: Fabian Mcneil M.D. 05/02/2022 7:04 AM
--- NOTE | 2022-05-02 07:11 | CT Scan Report ---
CT SCAN OF THE NECK WITH IV CONTRAST CLINICAL HISTORY: Weight loss. Tobacco use. Hoarseness. COMPARISON STUDY: No priors. TECHNIQUE: Following the IV administration of 85 cc of Optiray 350, CT scan of the soft tissues of e neck was performed from the skull base to the upper chest. Images are reviewed in the axial, sagitt al, and coronal planes. IV contrast was administered without complication. A dose lowering techniqu e was utilized adhering to the principles of ALARA. FINDINGS: Pharynx: The pharyngeal soft tissues are normal as visualized. The pharyngeal airway is widely patent . There is no evidence of mass lesion. The vocal cords are symmetric. The parapharyngeal fat is well maintained. The prevertebral/retropharyngeal soft tissues are within normal limits. The epiglottis is normal. Lymphadenopathy: No cervical lymphadenopathy is seen Thyroid: The right lobe is normal in size and heterogeneous in attenuation. The left lobe is diminuti ve. Salivary glands: The parotid and submandibular glands are within normal limits. Brain parenchyma: The visualized brain parenchyma is normal in appearance noting age related involuti onal change. Vascular structures: The carotid arteries and jugular veins are patent bilaterally noting atheroscler otic calcification of the carotid bulbs. Skeletal structures: The skeletal structures are osteopenic. Imaged portions of the calvarium at the skull base are within normal limits. The cervical spine appears intact noting mild multilevel spondyl osis. No lytic or blastic lesion is seen. Sinuses and mastoids: The paranasal sinuses are clear. There is a right mastoid effusion. The left ma stoid air cells are well pneumatized. Lung apices: Emphysematous change and parenchymal scarring is noted in the upper lobes. IMPRESSION: 1. No acute abnormality is identified. 2. Emphysema. ACT 112: Negative or not required by law. Electronically signed by: Fabian Mcneil M.D. 05/02/2022 7:09 AM
[2022-05-02] MEDS ORDERED: GLUCOSE 10 TAB/TUBE PO PRN (07:25)
[2022-05-02] MEDS ORDERED: ALBUT/IPRATROP 3MG/0.5MG NEB 3 ML VIAL INH PRN (07:25)
[2022-05-02] MEDS ORDERED: DEXTROSE 50% 50 ML SYRINGE IV PRN (07:25)
[2022-05-02] MEDS ORDERED: CARBOHYDRATES FOR HYPOGLYCEMIA PO PRN (07:25)
[2022-05-02] MEDS ORDERED: GLUCOSE 40% GEL 15 GM TUBE PO PRN (07:25)
[2022-05-02] MEDS ORDERED: ACETAMINOPHEN 325 MG TAB PO PRN (07:25)
[2022-05-02] MEDS ORDERED: GLUCAGON FOR INJ 1 MG VIAL SQ PRN (07:25)
[2022-05-02] MEDS ORDERED: ALBUTEROL HFA 8 GM INHALER INH PRN (07:25)
[2022-05-02] MEDS ORDERED: ONDANSETRON INJ 2 MG/ML 2 ML VIAL IV PRN (07:25)
[2022-05-02] MEDS: POTASSIUM CHLORIDE / WTR 10 MEQ/100 ML PLCT IV SCH ×2 (07:27→11:36)
[2022-05-02] MEDS ORDERED: AMPICILLIN/SULBACTAM SOD 3,000 MG in 0.9 % SODIUM CHLORIDE 100 ML IV STA (07:31)
[2022-05-02] MEDS ORDERED: LOSARTAN POTASSIUM 50 MG TAB PO SCH (09:00)
[2022-05-02] MEDS: AZITHROMYCIN 500 MG in DEXTROSE 5% 250 ML IV SCH (09:01)
[2022-05-02] MEDS: FLUTICASONE/VILANTEROL 200/25MCG 14 PUFFS/INHALER INH SCH (09:03)
[2022-05-02] MEDS: ASPIRIN 81 MG ECTAB PO SCH (09:04)
[2022-05-02] MEDS: ATORVASTATIN 20 MG TAB PO SCH (09:04)
[2022-05-02] MEDS: guaiFENesin 600 MG TABCR PO SCH ×2 (09:04→21:01)
[2022-05-02] MEDS ORDERED: NSS + 20MEQ KCL 20 MEQ/1,000 ML BAG IV SCH (09:15)
[2022-05-02] MEDS: INSULIN ASPART PER UNIT SC SCH ×4 (09:31→20:18)
--- NOTE | 2022-05-02 10:11 | Electrocardiogram Report ---
Test Reason : Blood Pressure : / mmHG Vent. Rate : 102 BPM Atrial Rate : 102 BPM P-R Int : 212 ms QRS Dur : 100 ms QT Int : 364 ms P-R-T Axes : 075 079 083 degrees QTc Int : 474 ms Poor data quality, interpretation may be adversely affected Probable Sinus rhythm with occasional Premature ventricular complexes Abnormal ECG When compared with ECG of 22-SEP-2021 22:41, Premature ventricular complexes now present Otherwise no significant change Confirmed by Etienne Perez ([id number]) on 05/02/2022 10:11:14 AM Referred By: REFERRED SELF Confirmed By:Etienne Perez
[2022-05-02] MEDS: AMPICILLIN/SULBACTAM SOD 3,000 MG in 0.9 % SODIUM CHLORIDE 100 ML IV SCH ×3 (11:02→20:59)
--- NOTE | 2022-05-02 15:07 | XCELERA ---
[id number] \\[id number]___[id number]
--- NOTE | 2022-05-02 15:32 | Electrocardiogram Report ---
Test Reason : Blood Pressure : / mmHG Vent. Rate : 069 BPM Atrial Rate : 069 BPM P-R Int : 200 ms QRS Dur : 102 ms QT Int : 404 ms P-R-T Axes : 081 073 064 degrees QTc Int : 432 ms Normal sinus rhythm Normal ECG When compared with ECG of 02-MAY-2022 02:33, Premature ventricular complexes are no longer Present Confirmed by Etienne Perez ([id number]) on 05/02/2022 3:31:50 PM Referred By: REFERRED SELF Confirmed By:Etienne Perez
[2022-05-02] MEDS: HYDROmorphone INJ 0.5 MG/0.5 ML SYR IV PRN ×2 (16:17→19:27)
--- NOTE | 2022-05-02 18:57 | Communication Note ---
Date of Service: May 02, 2022 Patient was seen and examined but admitted the same day therefore I will not be billing for this encounter. CT chest with dependant airspace consolidation - will treat for aspiration/community acquired pneumonia. Despite history of COPD exacerbation he is not wheezing at this time. Will need 3-[address] for patchy airspace opacity in the right upper lobe. SLT eval for aspiration. His back neck pain and stiffness is less clear etiology. He reports never having this before. No acute abnormality on CT soft tissue neck. Meningitis was cons idered however he has more pain and stiffness in his trapezius than actual nuchal rigidity and this appears much out of proportion to any change in mental status which appears to be minimal. No fever has been documented. It is more concerning for a PMR presentation although has only been present for the last 2 days per patient that I would opt to treat his pneumonia initially and have PT see if they can help.
[2022-05-02] MEDS: UMECLIDINIUM BROMIDE 62.5MCG/BLISTER 7 PUFFS/INHALER INH SCH (21:00)
[2022-05-03] MEDS: AMPICILLIN/SULBACTAM SOD 3,000 MG in 0.9 % SODIUM CHLORIDE 100 ML IV SCH ×4 (03:58→21:34)
[2022-05-03] MEDS: HYDROmorphone INJ 0.5 MG/0.5 ML SYR IV PRN (06:14)
[2022-05-03 06:49] LABS: Basophils # (auto) 0.08 K/uL (0-0.2); Basophils % (auto) 0.5 %; Eosinophils # (auto) 0.17 K/uL (0-0.50); Eosinophils % (auto) 1.1 %; Hematocrit (blood only) 43.3 % (40.1-51.0); Hemoglobin 14.3 g/dl (14.0-18.0); Immature Granulocytes # (auto) 0.08 K/uL (0.00-0.02); Immature Granulocytes % (auto) 0.5 %; Lymphocytes # (auto) 1.41 K/uL (1.2-3.4); Lymphocytes % (auto) 9.1 %; Mean Platelet Volume 10.4 fL (9.4-12.4); Monocytes # (auto) 1.45 K/uL (0.24-0.82); Monocytes % (auto) 9.4 %; Neutrophils # (auto) 12.24 K/uL (1.4-6.5); Neutrophils % (auto) 79.4 %; Platelet Count 340 K/uL (130-400); RDW Coefficient of Variation 13.5 % (11.5-14.5); RDW Standard Deviation 45.6 fL (36.4-46.3); Red Blood Count 4.76 M/uL (4.63-6.08); White Blood Count 15.43 K/ul (4.8-10.8)
[2022-05-03 07:07] LABS: Albumin Globulin Ratio 1.3 (0.9-2); Albumin Level 3.4 gm/dl (3.4-5.0); BUN Creatinine Ratio 42.9 (10-20); Bilirubin,Total 0.8 mg/dl (0.2-1.0); Creatinine Clr Calc Pharmacy 94.9 ml/min; Est GFR (African American) 113.2 ml/min; Est GFR (Non-African American) 97.7 ml/min; Globulin 2.6 gm/dl (2.5-4.0); Magnesium 1.8 mg/dl (1.7-2.4); Potassium 3.8 mmol/L (3.5-5.1)
[2022-05-03 07:45] LABS: Estimated Average Glucose 163 mg/dl; Hemoglobin A1C 7.3 % (4.5-5.6)
[2022-05-03] MEDS: ASPIRIN 81 MG ECTAB PO SCH (08:24)
[2022-05-03] MEDS: ATORVASTATIN 20 MG TAB PO SCH (08:24)
[2022-05-03] MEDS: guaiFENesin 600 MG TABCR PO SCH ×2 (08:24→19:41)
[2022-05-03] MEDS: LEVOTHYROXINE SODIUM 88 MCG TABLET PO SCH (08:25)
[2022-05-03] MEDS: FLUTICASONE/VILANTEROL 200/25MCG 14 PUFFS/INHALER INH SCH (08:25)
[2022-05-03] MEDS: INSULIN ASPART PER UNIT SC SCH ×4 (08:37→20:36)
[2022-05-03] MEDS: AZITHROMYCIN 500 MG in DEXTROSE 5% 250 ML IV SCH (08:38)
--- NOTE | 2022-05-03 13:28 | Hospitalist Progress Note ---
Date of Service May 03, 2022 Assessment & Plan (1) Pneumonia: Plan: b/l. community acquired vs aspiration. cont unasyn. cont azithromycin for atypical coverage. appreciate speech therapy consultation. FEES study planned for 05/05. cont other supportive care. (2) Neck pain: Plan: quite severe. seems to be musculoskeletal in nature as opposed to nuchal rigidity from [employer] process. obtain cervical spine CT- r/o fracture, r/o spinal stenosis, etc. start voltaren gel 4gm QID. add K-pad. consider low-dose muscle relaxer if all else fails. steroids for COPD likely to help with this issue. (3) Hypotension: Plan: likely due to mild volume depletion in setting of #1. steroids for #4 likely to help. hold ARB. if BPs do not improve with IV steroids then give additional fluid bolus. (4) COPD exacerbation: Plan: start dexamethasone 6mg IV BID. would likely benefit from scheduled bronchodilators. cont usual home inhalers. cont mucinex 600mg BID. (5) Severe protein-calorie malnutrition: Plan: 20kg+ weight loss over the last year. etiology uncertain. CT chest without obvious lung ca. TSH today wnl. ideally would need EGD/colonoscopy, SEEMA to check prostate, PSA, etc. defer to outpatient setting. (6) Recent unintentional weight loss over several months: Plan: see above (7) Hypothyroidism: Plan: TSH wnl cont synthroid (8) Hypertension: Plan: due to hypotension hold ARB (9) Type 2 diabetes mellitus without complication: Plan: Hba1c 7.3% add novolog SSI (10) DVT prophylaxis: Plan: add heparin 5000 BID starting in am Plan ultimately will need PT/OT Admission and Anticipated Discharge Date Admission Date: May 02, 2022 Subjective pt's main complaint is that of neck and upper back pain started about the time he got sick with his cough/congestion (about 1 week ago) any attempt to turn the head - rotate, flex, extend - leads to pain coughing makes the pain worse as well denies frontal headache denies b/l arm weakness or paresthesias had good appetite today he did confirm, however, he has had 20+ kg of weight loss over the last year; this has been unintentional tele overnight with NSR only Review of Systems Review of Systems: gen - no fevers; fatigue cv - no chest pain or tightness pulm - cough, congestion, mild sputum production, wheezing GI - no nausea, emesis or abd pain Physical Exam Physical Exam: gen - coughing, but no distress mouth - MM slightly dry neck - no JVD; very tender to palpation on occiput of head and paraspinal regions of c-spine; upper back muscles also very tender to palpation; rotation of neck and flexion/extension very limited due to pain; no true nuchal rigidity heart - irregular (extra beats), s1 s2, rate <100 lungs - crackles b/l bases; scattered end-exp wheezes b/l; no increased work of breathing abd - soft NT ND BS+ ext - no edema, pulses 2+ b/l neuro - strength 5/5 x 4 exts; DTRs 2+ b/l upper & lower extremities Results & Data Results & Data ([facility]) Vital Signs (Past 12 Hours) Vital Signs Temp Pulse Pulse Resp BP Pulse Ox O2 Del Method 05/03/22 11:29 36.4 C L 64 18 91/54 L 91 Nasal Cannula 05/03/22 08:23 Nasal Cannula 05/03/22 07:41 36.4 C L 67 18 103/62 91 Nasal Cannula 05/03/22 06:05 80 05/03/22 06:00 106/66 05/03/22 03:00 36.6 C 62 18 96/50 L 93 Nasal Cannula O2 Flow Rate 05/03/22 11:29 2 05/03/22 08:23 2 05/03/22 07:41 2 05/03/22 06:05 05/03/22 06:00 05/03/22 03:00 2 Laboratory Results Laboratory Results - last 24 hr 05/03/22 05/03/22 05/03/22 05:38 05:38 05:38 WBC 15.43 H RBC 4.76 Hgb 14.3 Hct 43.3 MCV 91.0 MCH 30.0 MCHC 33.0 RDW Std Deviation 45.6 RDW Coeff of Samantha 13.5 Plt Count 340 MPV 10.4 Immature Gran % (Auto) 0.5 Neut % (Auto) 79.4 Lymph % (Auto) 9.1 [place] % (Auto) 9.4 Eos % (Auto) 1.1 Baso % (Auto) 0.5 Neut # (Auto) 12.24 H Lymph # (Auto) 1.41 [place] # (Auto) 1.45 H Eos # (Auto) 0.17 Baso # (Auto) 0.08 Immature Gran # (Auto) 0.08 H Sodium 137 Potassium 3.8 Chloride 102 Carbon Dioxide 26 Anion Gap 9 BUN 24 H Creatinine 0.56 L Est Cr Clr Drug Dosing 94.9 Est GFR ( Amer) 113.2 Est GFR (Non-Af Amer) 97.7 BUN/Creatinine Ratio 42.9 H Glucose 89 POC Glucose Estimat Average Glucose 163 Hemoglobin A1c 7.3 H Calcium 9.0 Magnesium 1.8 Total Bilirubin 0.8 AST 12 L ALT 14 Alkaline Phosphatase 54 Total Creatine Kinase 67 Total Protein 6.0 Albumin 3.4 Globulin 2.6 Albumin/Globulin Ratio 1.3 TSH 05/03/22 05/03/22 05/03/22 07:25 09:09 11:12 WBC RBC Hgb Hct MCV MCH MCHC RDW Std Deviation RDW Coeff of Samantha Plt Count MPV Immature Gran % (Auto) Neut % (Auto) Lymph % (Auto) [place] % (Auto) Eos % (Auto) Baso % (Auto) Neut # (Auto) Lymph # (Auto) [place] # (Auto) Eos # (Auto) Baso # (Auto) Immature Gran # (Auto) Sodium Potassium Chloride Carbon Dioxide Anion Gap BUN Creatinine Est Cr Clr Drug Dosing Est GFR ( Amer) Est GFR (Non-Af Amer) BUN/Creatinine Ratio Glucose POC Glucose 93 135 H Estimat Average Glucose Hemoglobin A1c Calcium Magnesium Total Bilirubin AST ALT Alkaline Phosphatase Total Creatine Kinase Total Protein Albumin Globulin Albumin/Globulin Ratio TSH 1.865 05/03/22 05/03/22 16:26 20:06 WBC RBC Hgb Hct MCV MCH MCHC RDW Std Deviation RDW Coeff of Samantha Plt Count MPV Immature Gran % (Auto) Neut % (Auto) Lymph % (Auto) [place] % (Auto) Eos % (Auto) Baso % (Auto) Neut # (Auto) Lymph # (Auto) [place] # (Auto) Eos # (Auto) Baso # (Auto) Immature Gran # (Auto) Sodium Potassium Chloride Carbon Dioxide Anion Gap BUN Creatinine Est Cr Clr Drug Dosing Est GFR ( Amer) Est GFR (Non-Af Amer) BUN/Creatinine Ratio Glucose POC Glucose 91 188 H Estimat Average Glucose Hemoglobin A1c Calcium Magnesium Total Bilirubin AST ALT Alkaline Phosphatase Total Creatine Kinase Total Protein Albumin Globulin Albumin/Globulin Ratio TSH PG Care Time/CCT Total # of Minutes Spent Total Time Spent with Patient: Total time spent is greater than 50% in coordination of care (as documented) at patient's floor/unit and/or counseling patient: Coding Level of Care Code 13325 Subseq Hosp Care Lvl 3 Diagnoses Pneumonia J18.9 Neck pain M54.2 Hypotension I95.9 COPD exacerbation J44.1 Severe protein-calorie malnutrition E43 Recent unintentional weight loss over several months R63.4 Hypothyroidism E03.9 Hypertension I10 Type 2 diabetes mellitus without complication E11.9 DVT prophylaxis Z29.9
--- NOTE | 2022-05-03 14:17 | CT Scan Report ---
CT SCAN OF THE CERVICAL SPINE CLINICAL HISTORY: Neck pain. COMPARISON STUDY: CT of the neck dated 05/02/2022. TECHNIQUE: CT scan of the cervical spine is performed from the skull base to the upper thoracic spine . Images are reviewed in the axial, sagittal, and coronal planes. IV contrast was not administered fo r this examination. A dose lowering technique was utilized adhering to the principles of ALARA. CT DOSE: 299.81 mGy.cm FINDINGS: Skeletal structures: The skeletal structures are osteopenic. There is no evidence of fracture or subl uxation involving the cervical spine. Vertebral body height and alignment are maintained. There is st raightening of the cervical spondylosis. Anterior osteophytes are seen throughout. The odontoid proce ss and lateral masses are intact. The atlantoaxial articulation is preserved noting productive degene rative change. The spinous processes appear intact. There is eldi-ax-ujthhkje multilevel cervical spo ndylosis. Uncovertebral and facet arthropathy contribute to right foraminal narrowing at several leve ls. Neural foraminal narrowing is moderate to severe on the right at C4-C5, C5-C6, and C6-C7 and on t he left at C5-C6 and C6-C7. Intervertebral discs: There is moderate disc space narrowing at C6-C7. Mild disc space narrowing is s een at the remaining cervical levels. Central canal: Tiny posterior disc osteophyte complexes are seen at all cervical levels between C3-C4 and C6-C7. This may contribute to mild multilevel acquired compromise of the central canal. Soft tissues: The prevertebral and paraspinous soft tissues are within normal limits. There is athero sclerotic calcification of the carotid bulbs. Calvarium: The visualized calvarium at the skull base appears intact. Brain parenchyma: Partially visualized brain parenchyma at the skull base is within normal limits. Sinuses and mastoids: The visualized paranasal sinuses are clear. There are small mastoid effusions. Lung apices: Emphysematous change is noted at the lung apices. Apical parenchyma is otherwise clear a s imaged. IMPRESSION: No acute bony abnormality is identified. ACT 112: Negative or not required by law. Electronically signed by: Fabian Mcneil M.D. 05/03/2022 2:15 PM
[2022-05-03] MEDS: dexAMETHasone 6 MG in SYRINGE 0 ML IV SCH (15:00)
[2022-05-03] MEDS: DICLOFENAC SOD 1% GEL 100 GM TUBE EXT SCH ×3 (15:00→19:40)
[2022-05-03] MEDS: UMECLIDINIUM BROMIDE 62.5MCG/BLISTER 7 PUFFS/INHALER INH SCH (19:41)
[2022-05-04] MEDS: dexAMETHasone 6 MG in SYRINGE 0 ML IV SCH ×2 (01:34→14:22)
[2022-05-04] MEDS: LEVOTHYROXINE SODIUM 88 MCG TABLET PO SCH (05:03)
[2022-05-04] MEDS: AMPICILLIN/SULBACTAM SOD 3,000 MG in 0.9 % SODIUM CHLORIDE 100 ML IV SCH ×4 (05:03→21:14)
[2022-05-04 06:44] LABS: Hematocrit (blood only) 45.1 % (40.1-51.0); Hemoglobin 15.1 g/dl (14.0-18.0); Mean Corpuscular Hemoglobin 29.9 pg (25.0-34.0); Mean Corpuscular Hgb Conc 33.5 g/dL (32.0-36.0); Mean Corpuscular Volume 89.3 fL (80.0-100.0); Mean Platelet Volume 9.8 fL (9.4-12.4); Platelet Count 369 K/uL (130-400); RDW Coefficient of Variation 12.9 % (11.5-14.5); RDW Standard Deviation 42.4 fL (36.4-46.3); Red Blood Count 5.05 M/uL (4.63-6.08); White Blood Count 12.56 K/ul (4.8-10.8)
[2022-05-04 07:08] LABS: Basophils # (auto) 0.03 K/uL (0-0.2); Basophils % (auto) 0.2 %; Immature Granulocytes % (auto) 0.8 %; Lymphocytes # (auto) 0.72 K/uL (1.2-3.4); Lymphocytes % (auto) 5.7 %; Monocytes # (auto) 0.29 K/uL (0.24-0.82); Monocytes % (auto) 2.3 %; Neutrophils # (auto) 11.42 K/uL (1.4-6.5)
[2022-05-04 07:10] LABS: Calcium 9.3 mg/dl (8.5-10.1); Creatinine Clr Calc Pharmacy 88.6 ml/min; Est GFR (African American) 110.1 ml/min; Potassium 4.7 mmol/L (3.5-5.1)
[2022-05-04] MEDS ORDERED: AZITHROMYCIN 250 MG in DEXTROSE 5% 250 ML IV SCH (08:00)
[2022-05-04] MEDS: ASPIRIN 81 MG ECTAB PO SCH (08:08)
[2022-05-04] MEDS: ATORVASTATIN 20 MG TAB PO SCH (08:08)
[2022-05-04] MEDS: FLUTICASONE/VILANTEROL 200/25MCG 14 PUFFS/INHALER INH SCH (08:09)
[2022-05-04] MEDS: guaiFENesin 600 MG TABCR PO SCH ×2 (08:09→19:55)
[2022-05-04] MEDS: DICLOFENAC SOD 1% GEL 100 GM TUBE EXT SCH ×4 (08:09→19:55)
[2022-05-04] MEDS: INSULIN ASPART PER UNIT SC SCH ×4 (08:17→21:13)
[2022-05-04] MEDS: UMECLIDINIUM BROMIDE 62.5MCG/BLISTER 7 PUFFS/INHALER INH SCH (19:55)
--- NOTE | 2022-05-04 20:28 | Hospitalist Progress Note ---
Date of Service May 04, 2022 Assessment & Plan (1) Pneumonia: Plan: b/l. community acquired vs aspiration. IMPROVING. cont unasyn. cont azithromycin for atypical coverage. can change latter from IV to po starting tomorrow am. appreciate speech therapy consultation. FEES study planned for 05/05. cont other supportive care. plan 7 days in total of IV/PO abx - today is day #3. wean NC O2. (2) Neck pain: Plan: quite severe but IMPROVED today with voltaren gel & steroids. musculoskeletal in nature given response to above meds. 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 (3) Hypotension: Plan: resolved cont to hold ARB (4) COPD exacerbation: Plan: cont dexamethasone 6mg IV BID. cont usual home inhalers. cont mucinex 600mg BID. (5) Severe protein-calorie malnutrition: Plan: 20kg+ weight loss over the last year. etiology uncertain. CT chest without obvious lung ca. TSH today wnl. ideally would need EGD/colonoscopy, SEEMA to check prostate, PSA, etc. defer to outpatient setting. (6) Recent unintentional weight loss over several months: Plan: see above (7) Hypothyroidism: Plan: TSH wnl cont synthroid (8) Hypertension: Plan: due to hypotension cont to hold ARB (9) Type 2 diabetes mellitus without complication: Plan: Hba1c 7.3% uncontrolled 2nd steroids add lantus 6 units HS cont novolog (10) DVT prophylaxis: Plan: heparin 5000 BID starting in am Plan PT, OT evals requested Admission and Anticipated Discharge Date Admission Date: May 02, 2022 Subjective patient feeling better today breathing is more comfortable less cough can take deeper breaths eating well neck and upper back pain much improved can now rotate the neck much more easily today tele overnight wnl Review of Systems Review of Systems: gen - no fevers; energy improved pulm - no dyspnea at rest GI - no nausea or emesis cv - no chest pain Physical Exam Physical Exam: gen - looks much better today mouth - MMM neck - no JVD; tenderness over paraspinal regions of neck and upper back musculature much improved today; range of motion of neck is much improved heart - irregular (extra beats), s1 s2, rate <100 lungs - minimal crackles b/l bases; end-exp wheezes b/l; no increased work of breathing; airation improved today abd - soft NT ND BS+ ext - no edema, pulses 2+ b/l psych - a/o x 3 Results & Data Results & Data ([facility]) Vital Signs (Past 12 Hours) Vital Signs Temp Pulse Pulse Resp BP Pulse Ox O2 Del Method 05/04/22 19:00 36.5 C 60 20 101/64 97 Nasal Cannula 05/04/22 14:07 85 05/04/22 15:11 36.5 C 66 19 115/70 95 Nasal Cannula 05/04/22 12:00 36.6 C 70 20 105/66 91 Nasal Cannula O2 Flow Rate 05/04/22 19:00 05/04/22 14:07 05/04/22 15:11 2 05/04/22 12:00 2 Laboratory Results Laboratory Results - last 24 hr 05/04/22 05/04/22 05/04/22 06:15 06:15 07:13 WBC 12.56 H RBC 5.05 Hgb 15.1 Hct 45.1 MCV 89.3 MCH 29.9 MCHC 33.5 RDW Std Deviation 42.4 RDW Coeff of Samantha 12.9 Plt Count 369 MPV 9.8 Immature Gran % (Auto) 0.8 Neut % (Auto) 91.0 Lymph % (Auto) 5.7 [place] % (Auto) 2.3 Eos % (Auto) 0.0 Baso % (Auto) 0.2 Neut # (Auto) 11.42 H Lymph # (Auto) 0.72 L [place] # (Auto) 0.29 Eos # (Auto) 0.00 Baso # (Auto) 0.03 Immature Gran # (Auto) 0.10 H Sodium 136 Potassium 4.7 D Chloride 101 Carbon Dioxide 28 Anion Gap 7 BUN 30 H Creatinine 0.60 Est Cr Clr Drug Dosing 88.6 Est GFR ( Amer) 110.1 Est GFR (Non-Af Amer) 95.0 BUN/Creatinine Ratio 50.0 H Glucose 174 H POC Glucose 155 H Calcium 9.3 05/04/22 05/04/22 05/04/22 11:08 16:11 20:13 WBC RBC Hgb Hct MCV MCH MCHC RDW Std Deviation RDW Coeff of Samantha Plt Count MPV Immature Gran % (Auto) Neut % (Auto) Lymph % (Auto) [place] % (Auto) Eos % (Auto) Baso % (Auto) Neut # (Auto) Lymph # (Auto) [place] # (Auto) Eos # (Auto) Baso # (Auto) Immature Gran # (Auto) Sodium Potassium Chloride Carbon Dioxide Anion Gap BUN Creatinine Est Cr Clr Drug Dosing Est GFR ( Amer) Est GFR (Non-Af Amer) BUN/Creatinine Ratio Glucose POC Glucose 278 H 162 H 209 H Calcium PG Care Time/CCT Total # of Minutes Spent Total Time Spent with Patient: Total time spent is greater than 50% in coordination of care (as documented) at patient's floor/unit and/or counseling patient: Coding Level of Care Code 63861 Subseq Hosp Care Lvl 2 Diagnoses Pneumonia J18.9 Neck pain M54.2 Hypotension I95.9 COPD exacerbation J44.1 Severe protein-calorie malnutrition E43 Recent unintentional weight loss over several months R63.4 Hypothyroidism E03.9 Hypertension I10 Type 2 diabetes mellitus without complication E11.9 DVT prophylaxis Z29.9
[2022-05-04] MEDS: LANTUS PER UNIT CHARGE SQ SCH (21:12)
[2022-05-05] MEDS: dexAMETHasone 6 MG in SYRINGE 0 ML IV SCH ×2 (01:17→12:30)
[2022-05-05] MEDS: AMPICILLIN/SULBACTAM SOD 3,000 MG in 0.9 % SODIUM CHLORIDE 100 ML IV SCH ×3 (05:12→18:01)
[2022-05-05] MEDS: LEVOTHYROXINE SODIUM 88 MCG TABLET PO SCH (05:12)
[2022-05-05] MEDS: HEPARIN SOD 5,000 UNIT/0.5 ML VIAL SQ SCH ×3 (06:46→20:02)
[2022-05-05] MEDS: ATORVASTATIN 20 MG TAB PO SCH (08:31)
[2022-05-05] MEDS: AZITHROMYCIN 250 MG TAB PO SCH (08:31)
[2022-05-05] MEDS: FLUTICASONE/VILANTEROL 200/25MCG 14 PUFFS/INHALER INH SCH (08:32)
[2022-05-05] MEDS: guaiFENesin 600 MG TABCR PO SCH ×2 (08:32→20:02)
[2022-05-05] MEDS: DICLOFENAC SOD 1% GEL 100 GM TUBE EXT SCH ×4 (08:32→20:00)
[2022-05-05] MEDS: ASPIRIN 81 MG ECTAB PO SCH (08:32)
[2022-05-05] MEDS: INSULIN ASPART PER UNIT SC SCH ×4 (08:34→20:06)
[2022-05-05 09:09] LABS: Basophils # (auto) 0.03 K/uL (0-0.2); Basophils % (auto) 0.2 %; Hematocrit (blood only) 43.2 % (40.1-51.0); Hemoglobin 14.9 g/dl (14.0-18.0); Immature Granulocytes # (auto) 0.16 K/uL (0.00-0.02); Immature Granulocytes % (auto) 0.9 %; Lymphocytes # (auto) 0.98 K/uL (1.2-3.4); Lymphocytes % (auto) 5.5 %; Mean Corpuscular Hemoglobin 30.4 pg (25.0-34.0); Mean Corpuscular Hgb Conc 34.5 g/dL (32.0-36.0); Mean Corpuscular Volume 88.2 fL (80.0-100.0); Mean Platelet Volume 10.3 fL (9.4-12.4); Monocytes # (auto) 0.61 K/uL (0.24-0.82); Monocytes % (auto) 3.4 %; Neutrophils # (auto) 16.12 K/uL (1.4-6.5); Platelet Count 407 K/uL (130-400); RDW Coefficient of Variation 13.1 % (11.5-14.5); RDW Standard Deviation 42.5 fL (36.4-46.3)
[2022-05-05] MEDS: ALBUT/IPRATROP 3MG/0.5MG NEB 3 ML VIAL INH SCH ×3 (11:03→17:45)
[2022-05-05] MEDS: LANTUS PER UNIT CHARGE SQ SCH ×2 (11:25→20:06)
[2022-05-05] MEDS: UMECLIDINIUM BROMIDE 62.5MCG/BLISTER 7 PUFFS/INHALER INH SCH (20:02)
--- NOTE | 2022-05-05 21:37 | Hospitalist Progress Note ---
Date of Service May 05, 2022 Assessment & Plan (1) Pneumonia: Plan: b/l. community acquired vs aspiration. IMPROVING/RESOLVING. can stop IV unasyn; change to PO augmentin to finish course cont azithromycin for atypical coverage. can change latter from IV to po today; stop after tomorrow' dose appreciate speech therapy consultation. FEES study with aspiration - however, no modification to diet advised plan 7 days in total of IV/PO abx - today is day #4. o2 weaned off (2) Neck pain: Plan: resolving excellent response to voltaren gel & steroids. musculoskeletal in nature given response to above meds. 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 (3) Hypotension: Plan: resolved cont to hold ARB may not need ARB at d/c due to recent weight loss (4) COPD exacerbation: Plan: resolving cont dexamethasone but wean to 6mg po daily starting 05/06 cont usual home inhalers. cont mucinex 600mg BID. (5) Severe protein-calorie malnutrition: Plan: 20kg+ weight loss over the last year. etiology uncertain. CT chest without obvious lung ca. TSH wnl ideally would need EGD/colonoscopy, SEEMA to check prostate, PSA, etc. defer to outpatient setting. (6) Recent unintentional weight loss over several months: Plan: see above (7) Hypothyroidism: Plan: TSH wnl cont synthroid (8) Hypertension: Plan: due to hypotension cont to hold ARB (9) Type 2 diabetes mellitus without complication: Plan: Hba1c 7.3% uncontrolled 2nd steroids add lantus 6 units am in addition to PM dose adjust novolog (10) DVT prophylaxis: Plan: heparin 5000 TID Plan PT, OT evals requested cleared for home d/c tomorrow to home if stable overnight Admission and Anticipated Discharge Date Admission Date: May 02, 2022 Subjective patient feels "really good" today eating most of his meals walking independently to bathroom without dyspnea o2 weaned off no BETTS cough mild at most no chest pain Review of Systems Review of Systems: gen - no fevers cv - no cp, no orthopnea pulm - minimal sputum GI - loose stool but improving from prior musculo - neck pain cont to improve; good range of motion Physical Exam Physical Exam: gen - looks great mouth - MMM neck - no JVD; tenderness over paraspinal regions of neck and upper back musculature resolved; range of motion of neck cont to improve heart - irregular (extra beats), s1 s2, rate <100 lungs - scant crackles b/l bases; end-exp wheezes b/l but improved and airation is excellent; no increased work of breathing abd - soft NT ND BS+ ext - no edema, pulses 2+ b/l psych - a/o x 3 Results & Data Results & [facility] ([facility]) Vital Signs (Past 12 Hours) Vital Signs Temp Pulse Pulse Resp BP Pulse Ox O2 Del Method 05/05/22 19:40 36.4 C L 62 16 107/65 90 Room Air 05/05/22 17:46 69 18 91 Room Air 05/05/22 14:10 55 L 05/05/22 15:45 36.4 C L 64 16 110/62 93 Room Air 05/05/22 15:00 65 18 90 Room Air 05/05/22 11:36 36.4 C L 64 16 115/67 94 Room Air 05/05/22 11:05 61 18 93 Room Air Laboratory Results Laboratory Results - last 24 hr 05/05/22 05/05/22 05/05/22 07:03 07:35 11:16 WBC 17.90 H RBC 4.90 Hgb 14.9 Hct 43.2 MCV 88.2 MCH 30.4 MCHC 34.5 RDW Std Deviation 42.5 RDW Coeff of Samantha 13.1 Plt Count 407 H MPV 10.3 Immature Gran % (Auto) 0.9 Neut % (Auto) 90.0 Lymph % (Auto) 5.5 [place] % (Auto) 3.4 Eos % (Auto) 0.0 Baso % (Auto) 0.2 Neut # (Auto) 16.12 H Lymph # (Auto) 0.98 L [place] # (Auto) 0.61 Eos # (Auto) 0.00 Baso # (Auto) 0.03 Immature Gran # (Auto) 0.16 H POC Glucose 172 H 232 H 05/05/22 05/05/22 05/05/22 11:27 16:22 20:00 WBC RBC Hgb Hct MCV MCH MCHC RDW Std Deviation RDW Coeff of Samantha Plt Count MPV Immature Gran % (Auto) Neut % (Auto) Lymph % (Auto) [place] % (Auto) Eos % (Auto) Baso % (Auto) Neut # (Auto) Lymph # (Auto) [place] # (Auto) Eos # (Auto) Baso # (Auto) Immature Gran # (Auto) POC Glucose 221 H 177 H 242 H PG Care Time/CCT Total # of Minutes Spent Total Time Spent with Patient: Total time spent is greater than 50% in coordination of care (as documented) at patient's floor/unit and/or counseling patient: Coding Level of Care Code 04698 Subseq Hosp Care Lvl 2 Diagnoses Pneumonia J18.9 Neck pain M54.2 Hypotension I95.9 COPD exacerbation J44.1 Severe protein-calorie malnutrition E43 Recent unintentional weight loss over several months R63.4 Hypothyroidism E03.9 Hypertension I10 Type 2 diabetes mellitus without complication E11.9 DVT prophylaxis Z29.9
[2022-05-06] MEDS: ALBUT/IPRATROP 3MG/0.5MG NEB 3 ML VIAL INH SCH ×2 (05:33→10:38)
[2022-05-06] MEDS: HEPARIN SOD 5,000 UNIT/0.5 ML VIAL SQ SCH (06:06)
[2022-05-06] MEDS: LEVOTHYROXINE SODIUM 88 MCG TABLET PO SCH (06:06)
[2022-05-06 07:47] LABS: Hemoglobin 14.1 g/dl (14.0-18.0); Mean Corpuscular Hemoglobin 30.1 pg (25.0-34.0); Mean Corpuscular Hgb Conc 33.6 g/dL (32.0-36.0); Mean Corpuscular Volume 89.7 fL (80.0-100.0); Mean Platelet Volume 9.8 fL (9.4-12.4); Platelet Count 396 K/uL (130-400); RDW Standard Deviation 43.2 fL (36.4-46.3); Red Blood Count 4.68 M/uL (4.63-6.08); White Blood Count 13.35 K/ul (4.8-10.8)
[2022-05-06] MEDS ORDERED: AMOXICILLIN/CLAVULANATE 875 MG TAB PO SCH (08:00)
[2022-05-06 08:13] LABS: BUN Creatinine Ratio 32.3 (10-20); Calcium 9.4 mg/dl (8.5-10.1); Creatinine Clr Calc Pharmacy 85.8 ml/min; Est GFR (African American) 108.6 ml/min; Est GFR (Non-African American) 93.7 ml/min; Potassium 3.5 mmol/L (3.5-5.1)
[2022-05-06] MEDS ORDERED: dexAMETHasone 1 MG TAB PO SCH (09:00)
[2022-05-06] MEDS: guaiFENesin 600 MG TABCR PO SCH (09:53)
[2022-05-06] MEDS: ASPIRIN 81 MG ECTAB PO SCH (09:53)
[2022-05-06] MEDS: ATORVASTATIN 20 MG TAB PO SCH (09:53)
[2022-05-06] MEDS: INSULIN ASPART PER UNIT SC SCH ×2 (09:54→12:03)
[2022-05-06] MEDS: DICLOFENAC SOD 1% GEL 100 GM TUBE EXT SCH (09:54)
[2022-05-06] MEDS: FLUTICASONE/VILANTEROL 200/25MCG 14 PUFFS/INHALER INH SCH (09:54)
[2022-05-06] MEDS: AZITHROMYCIN 250 MG TAB PO SCH (09:54)
[2022-05-06] MEDS: LANTUS PER UNIT CHARGE SQ SCH (09:55)
--- NOTE | 2022-05-06 10:41 | Discharge Summary ---
Date of Service date of admission - May 02, 2022 date of discharge - May 06, 2022 Admission HPI Per Admitting Provider The patient is a 81-year-old male with a past medical history including hyperlipidemia, tobacco abuse, frequent PVCs, chronic sinusitis, chronic dyspnea, hypothyroidism, hypertension, COPD with emphysema and type 2 diabetes mellitus without complication. The patient reports the emergency department with severe pain as noted above. He notes a 40+ pound weight loss since early this year. He continues have issues with shortness of breath. He denies any difficulty with swallowing. He sees pulmonology for COPD with emphysema. He follows with his PCP on a regular basis as well. He has been taking all his medications as directed. Principal Diagnosis 1. bilateral pneumonia - likely due to aspiration (vs community-acquired) 2. COPD exacerbation 2nd to #1 - improved 3. severe protein calorie malnutrition with 40+ pounds of weight loss - outpatient w/u needed 4. severe neck and upper back pain - resolved 5. hypotension - resolved Discharge Exam gen - looks great, NAD mouth - MMM neck - no JVD; tenderness over paraspinal regions of neck and upper back musculature resolved; range of motion of neck cont to improve heart - irregular (extra beats), s1 s2, regular rate lungs - mild end-exp wheezes b/l but improved from prior exams and airation is excellent; no increased work of breathing; mildly decreased breath sounds bases abd - soft NT ND BS+ ext - no edema, pulses 2+ b/l psych - a/o x 3 Discharge Data Allergies Allergy/AdvReac Type Severity Reaction Status Date / Time No Known Allergies Allergy Mild Verified 05/07/22 09:18 Consultations Physical Therapy Speech Therapy Procedures Performed Echocardiogram - * EF 65-70% * normal valve function * normal PA pressure * normal RV function * IVC mildly dilated FEES study by speech therapy - aspiration noted Ordered Studies Soft Tissue Neck CT 05/02/22 06:03 CT SCAN OF THE NECK WITH IV CONTRAST CLINICAL HISTORY: Weight loss. Tobacco use. Hoarseness. COMPARISON STUDY: No priors. TECHNIQUE: Following the IV administration of 85 cc of Optiray 350, CT scan of the soft tissues of the neck was performed from the skull base to the upper chest. Images are reviewed in the axial, sagittal, and coronal planes. IV contrast was administered without complication. A dose lowering technique was utilized adhering to the principles of ALARA. FINDINGS: Pharynx: The pharyngeal soft tissues are normal as visualized. The pharyngeal airway is widely patent. There is no evidence of mass lesion. The vocal cords are symmetric. The parapharyngeal fat is well maintained. The prevertebral/retropharyngeal soft tissues are within normal limits. The epiglottis is normal. Lymphadenopathy: No cervical lymphadenopathy is seen Thyroid: The right lobe is normal in size and heterogeneous in attenuation. The left lobe is diminutive. Salivary glands: The parotid and submandibular glands are within normal limits. Brain parenchyma: The visualized brain parenchyma is normal in appearance noting age related involutional change. Vascular structures: The carotid arteries and jugular veins are patent bilaterally noting atherosclerotic calcification of the carotid bulbs. Skeletal structures: The skeletal structures are osteopenic. Imaged portions of the calvarium at the skull base are within normal limits. The cervical spine appears intact noting mild multilevel spondylosis. No lytic or blastic lesion is seen. Sinuses and mastoids: The paranasal sinuses are clear. There is a right mastoid effusion. The left mastoid air cells are well pneumatized. Lung apices: Emphysematous change and parenchymal scarring is noted in the upper lobes. IMPRESSION: 1. No acute abnormality is identified. 2. Emphysema. ACT 112: Negative or not required by law. Electronically signed by: Fabian Mcneil M.D. 05/02/2022 7:[address] 05/02/22 06:06 CT SCAN OF THE CHEST WITH IV CONTRAST CLINICAL HISTORY: Weight loss. Tobacco use. COMPARISON STUDY: Chest x-ray dated 09/27/2021. Chest CT dated 06/11/2021. TECHNIQUE: Following the IV administration of 85 cc of Optiray 350, CT scan of the thorax was performed from the thoracic inlet to the upper abdomen. Images are reviewed in the axial, sagittal, and coronal planes. IV contrast was administered without complication. A dose lowering technique was utilized adhering to the principles of ALARA. CT DOSE: 675.88 mGy.cm FINDINGS: Thyroid: Imaged portions of the thyroid gland are normal in size and attenuation. Thoracic aorta: There is atherosclerotic calcification of the thoracic aorta, which is normal in caliber and demonstrates 4-vessel variant arch anatomy. No dissection is seen. Pulmonary vasculature: The pulmonary trunk is normal in caliber. There are no filling defects identified in the central pulmonary vessels to indicate pulmonary embolus. Note that this examination was not protocoled for evaluation of the pulmonary arteries. Heart: The heart is normal in size noting trace pericardial effusion. The coronary arteries are densely calcified. Lungs and pleural spaces: There is advanced emphysema. The trachea and central airways appear clear. Peribronchial thickening is seen in the lower lobes with intraluminal secretions/debris. There is bibasilar airspace consolidation, right greater than left. An approximately 2.6 cm patchy opacity in the right upper lobe is new from 06/11/2021 and is also likely inflammatory. Mediastinum: There are mildly enlarged mediastinal lymph nodes An AP window node measures 14 mm short axis. Sandrine: Clear. Axillae: There is no axillary lymphadenopathy. Upper abdomen: A 1.4 cm cyst is noted in the upper pole of the right kidney. Partially visualized upper abdominal viscera is otherwise within normal limits. Skeletal structures: The skeletal structures are osteopenic. Degenerative change is noted in the shoulders and thoracic spine. No lytic or blastic bony lesions are seen. IMPRESSION: 1. Advanced emphysema. 2. Dependent airspace consolidation is seen at both lung bases, right greater than left. The appearance is typical for pneumonia/aspiration pneumonitis. Clinical correlation will be required and radiographic follow-up to resolution is recommended. 3. A 2.6 cm patchy opacity in the right upper lobe is new from 06/11/2021 and is also likely inflammatory. A 3-4 month follow-up chest CT is recommended to document resolution. 4. Peribronchial thickening images seen in the lower lobes with intraluminal fluid/debris. Correlate clinically for evidence of aspiration. 5. Prominent mediastinal lymph nodes are likely reactive. 6. Additional findings as above. ACT 112: Negative or not required by law. Electronically signed by: Fabian Mcneil M.D. 05/02/2022 7:[address] 05/03/22 13:25 CT SCAN OF THE CERVICAL SPINE CLINICAL HISTORY: Neck pain. COMPARISON STUDY: CT of the neck dated 05/02/2022. TECHNIQUE: CT scan of the cervical spine is performed from the skull base to the upper thoracic spine. Images are reviewed in the axial, sagittal, and coronal planes. IV contrast was not administered for this examination. A dose lowering technique was utilized adhering to the principles of ALARA. CT DOSE: 299.81 mGy.cm FINDINGS: Skeletal structures: The skeletal structures are osteopenic. There is no evidence of fracture or subluxation involving the cervical spine. Vertebral body height and alignment are maintained. There is straightening of the cervical spondylosis. Anterior osteophytes are seen throughout. The odontoid process and lateral masses are intact. The atlantoaxial articulation is preserved noting productive degenerative change. The spinous processes appear intact. There is [id number] multilevel cervical spondylosis. Uncovertebral and facet arthropathy contribute to right foraminal narrowing at several levels. Neural foraminal narrowing is moderate to severe on the right at C4-C5, C5-C6, and C6- C7 and on the left at C5-C6 and C6-C7. Intervertebral discs: There is moderate disc space narrowing at C6-C7. Mild disc space narrowing is seen at the remaining cervical levels. Central canal: Tiny posterior disc osteophyte complexes are seen at all cervical levels between C3-C4 and C6-C7. This may contribute to mild multilevel acquired compromise of the central canal. Soft tissues: The prevertebral and paraspinous soft tissues are within normal limits. There is atherosclerotic calcification of the carotid bulbs. Calvarium: The visualized calvarium at the skull base appears intact. Brain parenchyma: Partially visualized brain parenchyma at the skull base is within normal limits. Sinuses and mastoids: The visualized paranasal sinuses are clear. There are small mastoid effusions. Lung apices: Emphysematous change is noted at the lung apices. Apical parenchyma is otherwise clear as imaged. IMPRESSION: No acute bony abnormality is identified. ACT 112: Negative or not required by law. Electronically signed by: Fabian Mcneil M.D. 05/03/2022 2:15 PM Hospital Course (1) Pneumonia: b/l basilar, with patchy infiltrate in RUL as well. community acquired vs aspiration. IMPROVING/RESOLVING. NC O2 was weaned off by discharge; peak O2 requirement was 4 liters on hospital day #1. Received IV unasyn + azithromycin during his stay. He completed 5 days of azithromycin. He will finish a few more days of PO augmentin after discharge. Repeat CT of chest in 3 months advised by radiology to ensure full radiographic resolution of his infiltrates. (2) Neck pain: Severe posterior neck pain, b/l shoulder pain (trapezius muscles), and upper back pain at time of admission. Cervical spine CT without fracture but DJD/stenosis seen. He had rapid response to voltaren gel & steroids. I suspect he had muscle spasm/pain in the setting of his pneumonia. 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 I do not suspect an additional diagnosis of PMR or similar condition. He will continue voltaren gel prn and finish his steroid taper for his COPD (which will help this issue as well). (3) Dysphagia: In light of his b/l basilar pneumonia he was seen by speech therapy. He underwent FEES study. This indeed demonstrated aspiration of several consistencies. He was counseled heavily about this. Speech therapy did not advise thickener for his liquids or change in food texture, however. He will practice aspiration precautions at home. (4) COPD exacerbation: In the setting of #1 above. Received IV dexamethasone while here with improved lung exam, symptoms, and resolution of NC O2 requirement. He will take a dexamethasone taper post-discharge. cont usual home inhalers. cont mucinex 600mg BID. (5) Severe protein-calorie malnutrition: 20kg+ weight loss over the last year. Etiology uncertain. CT chest without obvious lung ca. With that said radiology advised a repeat CT chest in 3 months post-discharge to ensure infiltrates resolve. TSH wnl. Ideally would need EGD/colonoscopy, SEEMA to check prostate, PSA, CT abd/pelvis, etc to rule out occult malignancy, etc. He was counseled to speak to his PCP about this. (6) Recent unintentional weight loss over several months: see above (7) Hypotension: see #8 below resolved well before discharge (8) Hypertension: Patient had some BP readings that were low in the 90s systolic. Most other systolic readings were 100-120. BPs were controlled DESPITE HOLDING his losartan and HCTZ. He likely does NOT need these 2 BP meds moving forward because of extreme weight loss. Both meds were discontinued. (9) Hypothyroidism: TSH wnl cont synthroid (10) Type 2 diabetes mellitus without complication: Hba1c 7.3%. uncontrolled BSGs 2nd steroids while here. BSGs began to approach goal-range as steroids were weaned. at discharge he will resume metformin 1000mg BID and jardiance 25mg daily. Plan cleared for d/c home by physical therapy Total Time Total Time Spent Total Time Spent (In Minutes): 40 Discharge Plan Discharge Items Patient Disposition: Home - Self-Care Reason For Visit: NECK PAIN, SHORTNESS of BREATH, WEIGHT LOSS Discharge Diagnosis: 1. shortness of breath due to bilateral pneumonia - improved/resolved 2. neck pain, upper back pain - improved/resolved 3. weight loss - uncertain cause - follow-up with primary care doctor needed 4. type 2 diabetes 5. dysphagia (difficulty swallowing) which can lead to aspiration Activity: As commented below Activity Comment: gradually increase activity over the next 5-7 days Exercise/Sports: Wait until after follow-up appointment Non-emergency contact: Primary Care Provider Call non-emergency contact if: you have any medication questions, your symptoms worsen and you have a fever Follow-up/Referrals: Kimberlee Syed MD [Primary Care Provider] - 05/15/22 10:30 am (WILL SEE AUDREY ESPINOSA) Diet: Carb Consistent or DM2 Addtl Attending Provider Instructions: Mr Seymour, Homar were hospitalized for multiple issues as listed above in "discharge diagnoses." You underwent a CT scan of the chest which showed bilateral pneumonia. This was the cause of your worsening shortness of breath. Speech therapy saw you and performed a "FEES" study which did confirm that you do aspirate liquids into the lungs intermittently. This will be a risk factor for future episodes of pneumonia. You did improve nicely with antibiotics. In addition, you had severe neck, upper back, and shoulder pain. This improved with use of voltaren gel and steroids. The steroids were also used for your COPD. A CT scan of your neck did show considerable arthritis which might have contributed to your neck pain. I suspect that your pains came about due to your illness, coughing, etc. Your blood pressures were very normal while here despite not receiving your blood pressure medications (hydrochlorothiazide and losartan). Due to your recent, severe weight loss this you no longer require these 2 medications. They can be safely stopped. I am concerned about the weight loss you have had. I would recommend speaking with Dr Syed about this. You may need a CT scan of the abdomen/pelvis to ensure nothing is going on internally causing the weight loss. She may recommend a repeat colonoscopy, an upper endoscopy, prostate check, etc. Recommendations - 1. Antibiotics for pneumonia -- amoxicillin-clavulanate 875mg twice daily x 4 more doses, first dose TONIGHT with food. 2. Steroids for breathing/COPD -- take a 7 day dexamethasone taper; start this TOMORROW. Take the steroid with food. The steroids will also help your neck and upper back pain. 3. STOP your losartan. STOP your hydrochlorothiazide. 4. RESUME your prior diabetes pills. Know that the dexamethasone steroid may raise your blood sugars over the next week. 5. Continue your albuterol nebulizer or albuterol hand-held inhaler 2-3 times a day for the next few days as you recover from your illness. 6. Continue your incentive spirometry upon return home. This will help you recover faster. 7. May use 4 grams of duog-blv-dykyqln voltaren gel up to 4 times a day to your neck/upper back or any large joint (shoulder, knee, etc). 8. Please follow the "aspiration precautions" recommended by speech therapy to reduce your chances of aspiration at home. 9. Consider a daily protein drink such as "Glucerna" along with a daily multivitamin (Centrum Silver for men is a good choice) to help with your weight loss. Follow-up - see Dr Syed in 1 week Return to [facility] if - * you develop fevers over 100 degrees * you have worsening shortness of breath or chest pain * you develop severe diarrhea * any other concerns It was my pleasure to care for you at [facility]! Happy holidays, Dr West Pending Studies at Discharge: No Stand-Alone Forms: My [facility], Smoking Cessation Medications and DC Order Prescriptions: New amoxicillin-pot clavulanate 875-125 mg Tablet 1 tab PO BIDM 2 Days Qty: 4 0RF Rx Instructions: first dose PM of 05/06/22, take with food diclofenac sodium [Voltaren Arthritis Pain] 1 % Gel 4 g EXT QID PRN (Reason: neck pain, joint pain) Qty: 1 0RF Rx Instructions: purchase [id number]-[id number] dexamethasone 2 mg tablet 2 mg PO .daily as directed Qty: 12 0RF Rx Instructions: start 05/07/22: 3 tabs day 1, 2 tabs days 2-4, 1 tab days 5-7. Take w/ food. Continued Dulera 200-5 mcg/actuation HFA aerosol inhaler 2 puff inhalation BID Qty: 13 5RF Rx Instructions: INHALE 2 PUFFS BY MOUTH TWICE A DAY metformin 1,000 mg tablet extended release 24hr 1,000 mg PO BID Qty: 180 3RF (DME) OneTouch Ultra Test Strip See Rx Instructions .Route Qty: 200 3RF Rx Instructions: Test Twice per day as needed levothyroxine 88 mcg tablet 88 mcg PO QAM Qty: 90 3RF albuterol sulfate 90 mcg/actuation HFA aerosol inhaler 2 inh inhalation QID PRN (Reason: shortness of breath or wheezing) Qty: 18 3RF ipratropium-albuterol 0.5 mg-3 mg(2.5 mg base)/3 mL solution for nebulization 3 ml inhalation Q4H PRN (Reason: shortness of breath or wheezing) Qty: 180 1RF empagliflozin 25 mg tablet 25 mg PO QAM Qty: 90 3RF (DME) pen needle, diabetic [Novofine 32] 32 gauge x 1/4" needle See Rx Instructions .Route Qty: 100 1RF Rx Instructions: Use daily for liraglutide (victoza) injection guaifenesin [Mucinex] 600 mg Tablet Extended Release 12hr 600 mg PO Q12H Qty: 60 0RF aspirin 81 mg Tablet,Delayed Release (Dr/Ec) 81 mg PO QAM atorvastatin 20 mg tablet 20 mg PO QAM fluticasone propionate 50 mcg/actuation spray,suspension 2 spray NA QAM tiotropium bromide 2.5 mcg/actuation mist 2 puff inhalation QPM Discontinued hydrochlorothiazide 25 mg tablet 25 mg PO QAM losartan 100 mg tablet 100 mg PO QAM Discharge Orders: Discharge Order (Routine); Ordered 05/06/22 Ordered By: Julio Sandoval/Other Patient Handouts: Managing Type 2 Diabetes Admission Data Admit Date/Time: 05/02/22 06:17 Attending Provider: Julio West Admit Provider: Jayme Obrien Primary Care Provider: Kimberlee Syed Other Providers: Jayme bOrien Other Interventions: Discharge Summary Assessment (RN) Last Done: 05/06/22 11:06 Coding Level of Care Code D/C DAY MANAGEMENT >30 MINS Diagnoses Pneumonia J18.9 Neck pain M54.2 Dysphagia R13.10 COPD exacerbation J44.1 Severe protein-calorie malnutrition E43 Recent unintentional weight loss over several months R63.4 Hypotension I95.9 Hypertension I10 Hypothyroidism E03.9 Type 2 diabetes mellitus without complication E11.9
== END 2022-05-06 12:30 | disposition home or self-care (01) | DRG 177 ==
LOC: ED 02:30 → EDINP 06:17 → SUATTDRO 06:17 → 2S 07:25

== ENCOUNTER 2022-05-15 11:32 | Inpatient (IN) ==
[2022-05-15] MEDS ORDERED: ALBUT/IPRATROP 3MG/0.5MG NEB 3 ML VIAL NEB STA (12:04)
--- NOTE | 2022-05-15 12:12 | Emergency Department Note ---
Impression & Plan SOB (shortness of breath), Pneumonia, COPD exacerbation, Leukocytosis, Failure of outpatient treatment ED Provider Note NAME: KATHERYN TORREZ JR AGE: 81 SEX: M : 1940 ARRIVES VIA: Ambulance INFORMANT: [Patient] ED PROVIDER(S): [Fabian Paul MD] CHIEF COMPLAINT: Short of breath HISTORY OF PRESENT ILLNESS: The patient is an 81-year-old male who was sent over for evaluation by his doctors office. He had presented there for a follow-up from a recent hospitalization. He was in the hospital for pneumonia. The patient is off antibiotics and off of steroids. The patient has become more short of breath since discharge. He denies fever, vomiting, no chest pain. He does live alone and states he is getting around okay at home. At his doctors office, he was found to be quite dyspneic and sent for evaluation. The patient does have COPD. He has nebulizers and inhalers to use at home. He does not typically wear oxygen. He feels he may still have pneumonia leftover. REVIEW OF SYSTEMS: See HPI for pertinent positives and negatives. A total of ten systems were reviewed and were otherwise negative. PMHx/PSHx: See Below SOCIAL HISTORY: See Below. PHYSICAL EXAM: GENERAL: Patient is in no acute distress. HEENT: No acute trauma, normocephalic atraumatic, mucous membranes dry, no nasal congestion, no scleral icterus. NECK: No stridor, no adenopathy, no meningismus, trachea is midline. LUNGS: Diminished breath sounds bilaterally. There are some scattered wheezes. There are crackles over the left lung especially in the left upper lobe. No obvious respiratory distress. HEART: Heart tones are quite distant and I cannot assess for murmurs or the rate. ABDOMEN: Soft, nontender, bowel sounds positive, no peritonitis. EXTREMITIES: No cyanosis or edema, full range of motion of all the joints without pain or difficulty, no signs for acute trauma. NEUROLOGIC: Oriented x 3, no acute motor or sensory deficits, no focal weakness. SKIN: No rash, no jaundice, no diaphoresis. DIFFERENTIAL DIAGNOSIS: Reactive airway disease, pneumonia, RSV, COVID-19, influenza, pneumothorax, COPD, CHF, infection, cardiac ischemia, pulmonary embolism, bronchitis, as well as other pathologies. EMERGENCY DEPARTMENT COURSE/PROCEDURES: ECG: Indication was shortness of breath. The ECG shows a sinus rhythm with a first-degree AV block. The rate is 62. There is no ST elevation, no PVCs. The QTc is 420. Continuous Cardiac Monitoring: An order was placed for continuous cardiac monitoring. The monitor shows a rate of 70 with normal sinus rhythm. MEDICAL DECISION MAKING: There is a moderate leukocytosis, this could be consistent with infection. The patient's white count is higher than recent testing. There was a normal hemoglobin. Platelet count slightly high at 409. No coagulopathy. No renal failure or or significant electrolyte abnormality. Lactic acid level was not elevated making severe sepsis less likely. No concerning liver enzyme elevation. Procalcitonin was not elevated. ECG shows a sinus rhythm with a first-degree AV block, no acute ischemia. Cardiac enzyme testing x1 is not consistent with acute cardiac injury. COVID, influenza and RSV test were negative. Chest x-ray showed some congestion in the lower lungs consistent with a potential pneumonia or atelectasis. Chest CT does show pneumonia, no PE. The pneumonia appeared improved compared to previous CT imaging. The patient presents quite short of breath. He has not done well since being discharged home around a week ago. His white count has increased. He still has pneumonia by CT imaging and chest x-ray. I do think a hospital stay is warranted. I did speak with the patient and case management, the on-call hospitalist was consulted. The patient was given IV vancomycin, IV Solu-Medrol, IV cefepime and a DuoNeb while here in the ED. He is currently resting fairly comfortably. Past Med/Surg History Medical History Acquired deviated nasal septum Actinic keratosis Chronic diarrhea COPD (chronic obstructive pulmonary disease) case management patient COPD with emphysema inhalers daily/prn, nebulizer prn Hyperlipidemia Hypersomnolence Hypertension Hypothyroidism Incidental lung nodule, > 3mm and < 8mm Type 2 diabetes mellitus without complication Surgical History History of appendectomy History of bilateral cataract extraction History of colonoscopy last 2018 History of Mohs micrographic surgery for skin cancer x3 History of tonsillectomy History of wisdom tooth extraction Hx of vasectomy Family History Other No family history of adverse response to anesthesia Denies family history of Ovarian cancer Prostate cancer Myocardial infarction Breast cancer Colorectal cancer Social History Smoking Status: Current every day smoker Tobacco Type: Cigarettes Cigarettes Per Day: 1/2 pack; Second Hand Exposure: No; Hx Alcohol Use: No Hx Substance Use: No Preferred Language: Mongolian Communication Ability: Effective Visual Impairment: No Limitations Hearing Ability: Normal 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 Beliefs That Will Affect Care: None marital status: Single Current Living Situation: Alone current occupational status: retired How many Children do You have: 1 Other Information That Helps Us Care for You: No Feels Safe at Home: Yes Dental Care, Regularly: Yes Physical Activity Frequency: 1-2 Times per Week Seatbelt Use: always Sunscreen Use: No Assistive Devices: None Allergies Allergies Allergy/AdvReac Type Severity Reaction Status Date / Time No Known Allergies Allergy Mild Verified 05/15/22 16:59 Home Meds Home Medications Medication Instructions Recorded Confirmed aspirin 81 mg tablet,delayed 81 mg PO QAM 05/14/21 05/15/22 release atorvastatin 20 mg tablet 20 mg PO QAM 10/09/21 05/15/22 fluticasone propionate 50 2 spray NA QAM 10/09/21 05/15/22 mcg/actuation nasal spray,suspension tiotropium bromide 2.5 2 puff inhalation QPM 10/09/21 05/15/22 mcg/actuation mist for inhalation Previous Rx's Medication Instructions Recorded mometasone-formoterol HFA 200 2 puff inhalation BID #13 grams 07/04/21 mcg-5 mcg/actuation aerosol inhaler (Dulera) metformin 1,000 mg tablet,extended 1,000 mg PO BID #180 tabs 08/12/21 release 24hr blood sugar diagnostic (OneTouch #200 ea 09/17/21 Ultra Test strips) guaifenesin 600 mg tablet, 600 mg PO Q12H #60 tabs 09/27/21 extended release 12 hr (Mucinex) empagliflozin 25 mg tablet 25 mg PO QAM #90 tabs 10/21/21 pen needle, diabetic 32 gauge x #100 ea 10/21/21 1" (Novofine 32) levothyroxine 88 mcg tablet 88 mcg PO QAM #90 tabs 12/03/21 albuterol sulfate 90 mcg/actuation 2 inh inhalation QID PRN shortness 04/09/22 aerosol inhaler of breath or wheezing #18 grams ipratropium 0.5 mg-albuterol 3 mg 3 ml inhalation Q4H PRN shortness 04/25/22 (2.5 mg base)/3 mL nebulization of breath or wheezing #180 vials soln dexamethasone 2 mg tablet 2 mg PO .daily as directed #12 tabs 05/06/22 diclofenac sodium 1 % topical gel 4 g EXT QID PRN neck pain, joint 05/06/22 (Voltaren Arthritis Pain) pain #1 tube Results & Data (ED) Vital Signs Vital Signs - 24 hr 05/15/22 11:37 05/15/22 11:50 05/15/22 12:04 Temperature 36.7 C Temperature Source Oral Pulse Rate 70 Pulse Rhythm Regular Pulse Strength Normal Respiratory Rate 18 Respiratory Effort / Characteristics Non-Labored Spontaneous Non-Labored Respiratory Depth Normal Normal Respiratory Pattern Regular Regular Blood Pressure 155/68 H Blood Pressure Mean 97 Blood Pressure Position Lying Pulse Oximetry 98 96 Oxygen Delivery Method Room Air Room Air Room Air Sepsis Recent Fever Within 48 Hours No Sepsis New/Unexplained Change in Mental Status No Sepsis Action Taken by Nursing No Action Required Home Medications Current Medication List: was personally reviewed by me Laboratory Data Attestation: I reviewed the patient's lab results. Result diagrams: 05/15/22 11:45 05/15/22 11:45 Lab Results 05/15/22 05/15/22 05/15/22 Range/Units 11:45 11:45 11:45 WBC 17.67 H (4.8-10.8) K/ul RBC 5.26 (4.63-6.08) M/uL Hgb 15.9 (14.0-18.0) g/dl Hct 47.7 (40.1-51.0) % MCV 90.7 (80.0-100.0) fL MCH 30.2 (25.0-34.0) pg MCHC 33.3 (32.0-36.0) g/dL RDW Std Deviation 48.1 H (36.4-46.3) fL RDW Coeff of Samantha 14.6 H (11.5-14.5) % Plt Count 409 H (130-400) K/uL MPV 9.6 (9.4-12.4) fL Immature Gran % (Auto) 0.7 % Neut % (Auto) 79.6 % Lymph % (Auto) 10.9 % Crawford % (Auto) 7.5 % Eos % (Auto) 0.7 % Baso % (Auto) 0.6 % Neut # (Auto) 14.08 H (1.4-6.5) K/uL Lymph # (Auto) 1.92 (1.2-3.4) K/uL Crawford # (Auto) 1.32 H (0.24-0.82) K/uL Eos # (Auto) 0.13 (0-0.50) K/uL Baso # (Auto) 0.10 (0-0.2) K/uL Immature Gran # (Auto) 0.12 H (0.00-0.02) K/uL PT 10.5 (9.0-12.0) Seconds INR 1.0 (0.9-1.1) APTT 23.8 (21.0-31.0) Seconds PTT Ratio 0.9 Sodium 138 (136-145) mmol/L Potassium 4.3 (3.5-5.1) mmol/L Chloride 103 (98-107) mmol/L Carbon Dioxide 29 (21-32) mmol/L Anion Gap 6 (3-11) BUN 15 (6-23) mg/dl Creatinine 0.63 (0.6-1.4) mg/dl Est Cr Clr Drug Dosing 84.4 ml/min Est GFR ( Amer) 107.9 ml/min Est GFR (Non-Af Amer) 93.1 ml/min BUN/Creatinine Ratio 23.8 H (10-20) Glucose 117 H (70-99(Fasting)) mg/dl Lactate (0.4-2.0) mmol/L Calcium 9.7 (8.5-10.1) mg/dl Magnesium 2.0 (1.7-2.4) mg/dl Total Bilirubin 0.6 (0.2-1.0) mg/dl AST 18 (13-39) U/L ALT 30 (7-52) U/L Alkaline Phosphatase 63 (34-104) U/L Troponin I High Sens 6.4 (0-20) pg/ml Total Protein 6.8 (6.0-8.3) gm/dl Albumin 4.2 (3.4-5.0) gm/dl Globulin 2.6 (2.5-4.0) gm/dl Albumin/Globulin Ratio 1.6 (0.9-2) Procalcitonin (0-0.5) ng/ml SARS-CoV-2 (PCR) (Negative) Influenza Type A (PCR) (Neg) Influenza Type B (PCR) (Neg) RSV (RT-PCR) (Neg) 05/15/22 05/15/22 05/15/22 Range/Units 11:45 12:15 12:41 WBC (4.8-10.8) K/ul RBC (4.63-6.08) M/uL Hgb (14.0-18.0) g/dl Hct (40.1-51.0) % MCV (80.0-100.0) fL MCH (25.0-34.0) pg MCHC (32.0-36.0) g/dL RDW Std Deviation (36.4-46.3) fL RDW Coeff of Samantha (11.5-14.5) % Plt Count (130-400) K/uL MPV (9.4-12.4) fL Immature Gran % (Auto) % Neut % (Auto) % Lymph % (Auto) % Crawford % (Auto) % Eos % (Auto) % Baso % (Auto) % Neut # (Auto) (1.4-6.5) K/uL Lymph # (Auto) (1.2-3.4) K/uL Crawford # (Auto) (0.24-0.82) K/uL Eos # (Auto) (0-0.50) K/uL Baso # (Auto) (0-0.2) K/uL Immature Gran # (Auto) (0.00-0.02) K/uL PT (9.0-12.0) Seconds INR (0.9-1.1) APTT (21.0-31.0) Seconds PTT Ratio Sodium (136-145) mmol/L Potassium (3.5-5.1) mmol/L Chloride (98-107) mmol/L Carbon Dioxide (21-32) mmol/L Anion Gap (3-11) BUN (6-23) mg/dl Creatinine (0.6-1.4) mg/dl Est Cr Clr Drug Dosing ml/min Est GFR ( Amer) ml/min Est GFR (Non-Af Amer) ml/min BUN/Creatinine Ratio (10-20) Glucose (70-99(Fasting)) mg/dl Lactate 1.1 (0.4-2.0) mmol/L Calcium (8.5-10.1) mg/dl Magnesium (1.7-2.4) mg/dl Total Bilirubin (0.2-1.0) mg/dl AST (13-39) U/L ALT (7-52) U/L Alkaline Phosphatase (34-104) U/L Troponin I High Sens (0-20) pg/ml Total Protein (6.0-8.3) gm/dl Albumin (3.4-5.0) gm/dl Globulin (2.5-4.0) gm/dl Albumin/Globulin Ratio (0.9-2) Procalcitonin < 0.05 (0-0.5) ng/ml SARS-CoV-2 (PCR) NEGATIVE (Negative) Influenza Type A (PCR) Negative (Neg) Influenza Type B (PCR) Negative (Neg) RSV (RT-PCR) Negative (Neg) Administered Medications Albuterol (Albut/Ipratrop 3mg/0.5mg Neb 3 Ml Vial) 3 ml INH Q6R [facility] Stop: 06/14/22 18:59 Last Admin: 05/15/22 19:18 Dose: 3 ml Documented By: LESLY Insulin Aspart (Insulin Aspart Per Unit) 0 units SC ACHS [facility] Stop: 06/14/22 17:24 Last Admin: 05/15/22 18:46 Dose: 1 units Documented By: LUCRECIA Co-signed By: SMM Discontinued Medications Albuterol (Albut/Ipratrop 3mg/0.5mg Neb 3 Ml Vial) 3 ml NEB NOW STA; Protocol Stop: 05/15/22 12:05 Last Admin: 05/15/22 12:12 Dose: 3 ml Documented By: KAYCEE Cefepime HCl (Maxipime) 20 mls @ 5 mls/min IV NOW ONE Stop: 05/15/22 12:48 Last Admin: 05/15/22 13:13 Dose: 5 mls/min Documented By: KAYCEE Vancomycin HCl 1,500 mg/ (Sodium Chloride) 530 mls @ 200 mls/hr IV NOW ONE; Protocol Stop: 05/15/22 15:23 Last Infusion: 05/15/22 17:03 Dose: 0 mls/hr Documented By: Admin: 05/15/22 13:26 Dose: 200 mls/hr Documented By: KAYCEE Ioversol (Optiray 320 500ml) 110 ml IV ONCE ONE Stop: 05/15/22 13:39 Last Admin: 05/15/22 13:38 Dose: 110 ml Documented By: KENNETH Methylprednisolone (Methylprednisolone 125 Mg/2 Ml Vial) 60 mg IV NOW STA Stop: 05/15/22 12:59 Last Admin: 05/15/22 13:13 Dose: 60 mg Documented By: KAYCEE Imaging Data Radiologist's Impression: Chest X-Ray 05/15/22 12:04 XR chest 1V portable HISTORY: 81 years-old Male Dyspnea acute shortness of breath COMPARISON: Chest radiographs 09/27/2021, chest CT 05/02/2022. TECHNIQUE: AP view of the chest FINDINGS: Cardiac silhouette is normal in size. Emphysema with chronic interstitial coarsening. No pneumothorax, pleural effusion, airspace consolidation or overt pulmonary edema. Subsegmental mild bibasilar densities. Degenerative changes of the shoulders and spine. IMPRESSION: 1. Emphysema with chronic fibrotic change. 2. Subsegmental bibasilar opacities favor atelectasis. A mild nonspecific pneumonitis could appear similarly. ACT 112: Negative or not required by law. The above report was generated using voice recognition software. It may contain grammatical, syntax or spelling errors. Electronically signed by: Adeel Breen M.D. 05/15/2022 12:30 PM Chest CTA 05/15/22 13:01 CT ANGIOGRAPHY OF THE CHEST, PULMONARY EMBOLUS PROTOCOL CLINICAL HISTORY: Increased shortness of breath. Cough. Evaluate for pulmonary embolus. COMPARISON STUDY: Chest radiograph performed earlier today and chest CT May 02, 2022. Chest CT May 09, 2010. TECHNIQUE: Following IV administration of 110 mL of Optiray, helical axial images of the chest were obtained utilizing the pulmonary embolus protocol. Maximal intensity projections and sagittal and coronal reformats were viewed on an independent 3D workstation. IV contrast was administered without complicat ion. Automated exposure control was utilized for the study. A dose lowering technique was utilized adhering to the principles of ALARA. CT DOSE: 381.36 mGy.cm FINDINGS: No pulmonary emboli are identified. There is no thoracic aortic dissection. Size of the heart is normal. No pericardial effusion is present. Mediastinal lymph nodes have decreased in size since CT of May 02, 2022. Mild right lower lobe airspace opacity has improved since prior CT. Left lower lobe opacity has improved as well. Persistent bronchial wall thickening with secretions within the airways are noted. The previously described right upper lobe patchy opacity has nearly completely resolved. This was infectious. Severe emphysema is again noted. A 2.8 x 1.3 cm subpleural right apical opacity on image 231 of 380 is noted. This probably reflects atelectasis. There is no pneumothorax or pleural effusion. No acute fracture within the visualized bony thorax. IMPRESSION: 1. No pulmonary emboli identified. 2. Interval decrease in bilateral lower lobe airspace opacities, greater on the right, since chest CT of May 02, 2022. This favors improving pneumonia or aspiration pneumonitis. 3. Emphysema. 4. 2.8 x 1.3 cm subpleural right apical airspace opacity. The appearance favors atelectasis or scarring. However, a follow-up chest CT in 6 months to ensure stability/resolution is recommended. ACT 112: Negative or not required by law. Electronically signed by: Tirso Moreno M.D. 05/15/2022 2:03 PM Discharge Plan Visit Data Chief Complaint: Shortness of Breath/Dyspnea Stated Complaint: SOB ED Provider: Fabian Paul Discharge Problem: SOB (shortness of breath), Pneumonia, COPD exacerbation, Leukocytosis, Failure of outpatient treatment Patient Disposition: Admitted As Inpatient Condition: Fair Discharge Instructions Interventions: ED Discharge Assessment Last Done: 05/15/22 16:14
[2022-05-15 12:13] LABS: Basophils % (auto) 0.6 %; Eosinophils # (auto) 0.13 K/uL (0-0.50); Eosinophils % (auto) 0.7 %; Hematocrit (blood only) 47.7 % (40.1-51.0); Hemoglobin 15.9 g/dl (14.0-18.0); Immature Granulocytes # (auto) 0.12 K/uL (0.00-0.02); Immature Granulocytes % (auto) 0.7 %; Lymphocytes # (auto) 1.92 K/uL (1.2-3.4); Lymphocytes % (auto) 10.9 %; Mean Corpuscular Hemoglobin 30.2 pg (25.0-34.0); Mean Corpuscular Hgb Conc 33.3 g/dL (32.0-36.0); Mean Corpuscular Volume 90.7 fL (80.0-100.0); Mean Platelet Volume 9.6 fL (9.4-12.4); Monocytes # (auto) 1.32 K/uL (0.24-0.82); Monocytes % (auto) 7.5 %; Neutrophils # (auto) 14.08 K/uL (1.4-6.5); Neutrophils % (auto) 79.6 %; Platelet Count 409 K/uL (130-400); RDW Coefficient of Variation 14.6 % (11.5-14.5); RDW Standard Deviation 48.1 fL (36.4-46.3); Red Blood Count 5.26 M/uL (4.63-6.08); White Blood Count 17.67 K/ul (4.8-10.8)
[2022-05-15 12:26] LABS: Partial Thromboplastin Ratio 0.9; Partial Thromboplastin Time 23.8 Seconds (21.0-31.0); Prothrombin Time 10.5 Seconds (9.0-12.0)
--- NOTE | 2022-05-15 12:31 | XRay Report ---
XR chest 1V portable HISTORY: 81 years-old Male Dyspnea acute shortness of breath COMPARISON: Chest radiographs 09/27/2021, chest CT 05/02/2022. TECHNIQUE: AP view of the chest FINDINGS: Cardiac silhouette is normal in size. Emphysema with chronic interstitial coarsening. No pneumothorax , pleural effusion, airspace consolidation or overt pulmonary edema. Subsegmental mild bibasilar dens ities. Degenerative changes of the shoulders and spine. IMPRESSION: 1. Emphysema with chronic fibrotic change. 2. Subsegmental bibasilar opacities favor atelectasis. A mild nonspecific pneumonitis could appear si milarly. ACT 112: Negative or not required by law. The above report was generated using voice recognition software. It may contain grammatical, syntax o r spelling errors. Electronically signed by: Adeel Breen M.D. 05/15/2022 12:30 PM
[2022-05-15 12:35] LABS: Albumin Globulin Ratio 1.6 (0.9-2); Albumin Level 4.2 gm/dl (3.4-5.0); BUN Creatinine Ratio 23.8 (10-20); Bilirubin,Total 0.6 mg/dl (0.2-1.0); Calcium 9.7 mg/dl (8.5-10.1); Creatinine Clr Calc Pharmacy 84.4 ml/min; Est GFR (African American) 107.9 ml/min; Est GFR (Non-African American) 93.1 ml/min; Globulin 2.6 gm/dl (2.5-4.0); Potassium 4.3 mmol/L (3.5-5.1); Total Protein 6.8 gm/dl (6.0-8.3)
[2022-05-15 12:41] LABS: Troponin I High Sensitivity 6.4 pg/ml (0-20)
[2022-05-15] MEDS ORDERED: VANCOMYCIN HCL 1,500 MG in SODIUM CHLORIDE 0.9% 500 ML IV ONE (12:45)
[2022-05-15] MEDS ORDERED: CEFEPIME 20 ML IV ONE (12:45)
[2022-05-15] MEDS ORDERED: methylPREDNISolone 125 MG/2 ML VIAL IV STA (12:58)
--- NOTE | 2022-05-15 13:03 | History & Physical Report ---
Date of Service May 15, 2022 Assessment & Plan (1) COPD exacerbation: Plan: Antonio is an 81-year-old male with a past medical history of hyperlipidemia, tobacco abuse, PVCs, chronic dyspnea, hypothyroidism, hypertension, COPD with emphysema, type II DM with recent discharge 05/06/2022 after treatment for pneumonia treated with Unasyn/azithromycin converted to Augmentin on discharge who was referred for evaluation/admission by his PCP. Worsening dyspnea, wheezing. Suspect acute on chronic COPD exacerbation in the setting of recent pneumonia Patient referred by PCP for worsening dyspnea. Was recently discharged for pneumonia treated with azithromycin and converted to Augmentin on discharge Patient feels he did not improve after discharge, and has been with worsening shortness of breath and wheezing in the last 2 days. Lives alone in a one-story home Ongoing tobacco use, about 1 pack/week Was pending outpatient follow-up to pulmonology, appointment is not for several months per patient. Would move up close follow-up on discharge At bedside is 90%, desats while speaking CXR: 1. Emphysema with chronic fibrotic change.2. Subsegmental bibasilar opacities favor atelectasis. A mild nonspecific pneumonitis could appear similarly. Initially given cefepime, vancomycin, methylprednisolone in ER CT pending, quad screen negative Patient without fever, chills, sweats. Sputum production is clear to creamy/white. Lower suspicion for inadequately treated/recurrent pneumonia, suspect slow progression and worsened COPD exacerbation Procalcitonin Received methylprednisolone in ER Convert to prednisone taper tomorrow Convert Dulera/tiotropium to Breo/umeclidinium while inpatient Aggressive antibiotics deferred given recent completion of course and suspicion more COPD with poor baseline. Will treat as COPD exacerbation with Doxy x5 days Neck pain Chronic, no change, improves with NSAIDs Continue Voltaren as needed. No acute change Protein calorie malnutrition CT without evidence of lung cancer, patient with gradual weight loss and previous ER TSH normal Outpatient follow-up for malignancy screening Hypothyroidism TSH recently checked, normal Continue Synthroid Type II DM Hold home metformin/SGLT2 With current steroid use Lantus 6 twice daily, SSI DVT prophylaxis: Heparin SQ Diet: Heart healthy Disposition: Medical/surgical CODE STATUS: Full code (2) Pneumonia: (3) Hyperlipidemia: (4) Tobacco use: (5) COPD with emphysema: (6) Type 2 diabetes mellitus without complication: History of Present Illness Primary Care Provider: Kimberlee Syed MD Antonio is an 81-year-old male with a past medical history of hyperlipidemia, tobacco abuse, PVCs, chronic dyspnea, hypothyroidism, hypertension, COPD with emphysema, type II DM with recent discharge 05/06/2022 after treatment for pneumonia treated with Unasyn/azithromycin converted to Augmentin on discharge who was referred for evaluation/admission by his PCP Shortness of breath, limited ambulation No fevers, chills Cough productive for cream colored mucous +wheezing, significatnly worsening over last 1-2 days NO nausea, vomiting, diarrhea, constipation NO falls, no passing out No chest pain, chest pressure CXR: Emphysema with chronic interstitial coarsening. Subsegmental bibasilar opacities favoring atelectasis versus mild nonspecific pneumonitis No dysuria, slight increase in urine production, generally light colored Lives in one story at home. Normally able to get aroudn without help. Slow, ambulation limited by SoB in the last week. Scheduled with Dr. Griffin in a few months. O2 sat 90-91%, desats to mid 80s while speaking during exam Medical History: Reviewed Medications: Reviewed Surgical History: Reviewed Allergies: Reviewed Social History: Cigarette smoker, 1ppw currently. Has smoked for >60 years, at peak 3ppd for many years. No etoh use. Code Status: Full Code Allergies Allergy/AdvReac Type Severity Reaction Status Date / Time No Known Allergies Allergy Mild Verified 05/15/22 10:45 Home Medications Medication Instructions Recorded Confirmed Type aspirin 81 mg tablet,delayed 81 mg PO QAM 05/14/21 05/15/22 History release mometasone-formoterol HFA 200 2 puff inhalation BID #13 grams 07/04/21 05/15/22 Rx mcg-5 mcg/actuation aerosol inhaler (Dulera) metformin 1,000 mg tablet,extended 1,000 mg PO BID #180 tabs 08/12/21 05/15/22 Rx release 24hr blood sugar diagnostic (OneTouch #200 ea 09/17/21 05/15/22 Rx Ultra Test strips) guaifenesin 600 mg tablet, 600 mg PO Q12H #60 tabs 09/27/21 05/15/22 Rx extended release 12 hr (Mucinex) atorvastatin 20 mg tablet 20 mg PO QAM 10/09/21 05/15/22 History fluticasone propionate 50 2 spray NA QAM 10/09/21 05/15/22 History mcg/actuation nasal spray,suspension tiotropium bromide 2.5 2 puff inhalation QPM 10/09/21 05/15/22 History mcg/actuation mist for inhalation empagliflozin 25 mg tablet 25 mg PO QAM #90 tabs 10/21/21 05/15/22 Rx pen needle, diabetic 32 gauge x #100 ea 10/21/21 05/15/22 Rx 1/4" (Novofine 32) levothyroxine 88 mcg tablet 88 mcg PO QAM #90 tabs 12/03/21 05/15/22 Rx albuterol sulfate 90 mcg/actuation 2 inh inhalation QID PRN shortness 04/09/22 05/15/22 Rx aerosol inhaler of breath or wheezing #18 grams ipratropium 0.5 mg-albuterol 3 mg 3 ml inhalation Q4H PRN shortness 04/25/22 05/15/22 Rx (2.5 mg base)/3 mL nebulization of breath or wheezing #180 vials soln dexamethasone 2 mg tablet 2 mg PO .daily as directed #12 tabs 05/06/22 05/15/22 Rx diclofenac sodium 1 % topical gel 4 g EXT QID PRN neck pain, joint 05/06/22 05/15/22 Rx (Voltaren Arthritis Pain) pain #1 tube Past Med/Surg History Medical History Acquired deviated nasal septum Actinic keratosis Chronic diarrhea COPD (chronic obstructive pulmonary disease) case management patient COPD with emphysema inhalers daily/prn, nebulizer prn Hyperlipidemia Hypersomnolence Hypertension Hypothyroidism Incidental lung nodule, > 3mm and < 8mm Type 2 diabetes mellitus without complication Surgical History History of appendectomy History of bilateral cataract extraction History of colonoscopy last 2019 History of Mohs micrographic surgery for skin cancer x3 History of tonsillectomy History of wisdom tooth extraction Hx of vasectomy Family History Other No family history of adverse response to anesthesia Denies family history of Ovarian cancer Prostate cancer Myocardial infarction Breast cancer Colorectal cancer Social History Smoking Status: Current every day smoker Tobacco Type: Cigarettes Cigarettes Per Day: 1/2 pack; Second Hand Exposure: No; Hx Alcohol Use: No Hx Substance Use: No Preferred Language: Monegasque Communication Ability: Effective Visual Impairment: No Limitations Hearing Ability: Normal Environmental Planning Engineer Required: No Beliefs That Will Affect Care: None marital status: Single Current Living Situation: Alone current occupational status: retired How many Children do You have: 1 Feels Safe at Home: Yes Dental Care, Regularly: Yes Physical Activity Frequency: 1-2 Times per Week Seatbelt Use: always Sunscreen Use: No Assistive Devices: Nebulizer Review of Systems Review of Systems: All systems reviewed & are unremarkable except as noted in HPI & below Physical Exam Physical Exam: General: A&Ox3. NAD. Cooperative. HEENT: Atraumatic, normocephalic. Vision/hearing grossly intact Pulm: Diffusely coarse, scattered wheezes more prominent in the bases bilaterally symmetrical chest rise. 90% on room air in bed, desats to mid 80s while speaking during HPI Cardiac: RRR, -mrg. Radial pulses intact and symmetrical. Abdominal: Nontender, nondistended, soft. BS present. Extremities: Warm, dry. Moves all extremities equally Results & Data Results & Data ([facility]) Vital Signs (Past 12 Hours) Vital Signs Temp Pulse Resp BP Pulse Ox O2 Del Method 05/15/22 11:50 Room Air 05/15/22 11:37 36.7 C 70 18 155/68 H 98 Room Air PG Care Time/CCT Total # of Minutes Spent Total Time Spent with Patient: Total time spent is greater than 50% in coordination of care (as documented) at patient's floor/unit and/or counseling patient: Coding Level of Care Code INT OBSERVATION CARE 50M LVL 2 Diagnoses COPD exacerbation J44.1 Pneumonia J18.9 Hyperlipidemia E78.5 Tobacco use Z72.0 COPD with emphysema J43.9 Type 2 diabetes mellitus without complication E11.9
[2022-05-15 13:31] LABS: Influenza A virus by PCR Negative (Neg); Influenza B virus by PCR Negative (Neg); RSV by PCR Negative (Neg); SARS CoV2 RNA(COVID-19) Ceph NEGATIVE (Negative)
[2022-05-15] MEDS ORDERED: OPTIRAY 320 500ml IV ONE (13:38)
--- NOTE | 2022-05-15 14:04 | CT Scan Report ---
CT ANGIOGRAPHY OF THE CHEST, PULMONARY EMBOLUS PROTOCOL CLINICAL HISTORY: Increased shortness of breath. Cough. Evaluate for pulmonary embolus. COMPARISON STUDY: Chest radiograph performed earlier today and chest CT May 02, 2022. Chest CT May 09, 2010. TECHNIQUE: Following IV administration of 110 mL of Optiray, helical axial images of the chest were o btained utilizing the pulmonary embolus protocol. Maximal intensity projections and sagittal and cor onal reformats were viewed on an independent 3D workstation. IV contrast was administered without co mplication. Automated exposure control was utilized for the study. A dose lowering technique was ut ilized adhering to the principles of ALARA. CT DOSE: 381.36 mGy.cm FINDINGS: No pulmonary emboli are identified. There is no thoracic aortic dissection. Size of the he art is normal. No pericardial effusion is present. Mediastinal lymph nodes have decreased in size sin ce CT of May 02, 2022. Mild right lower lobe airspace opacity has improved since prior CT. Left lower lobe opacity has improved as well. Persistent bronchial wall thickening with secretions within the airways are noted. The previously described right upper lobe patchy opacity has nearly completely resolved. This was infectious. Severe emphysema is again noted. A 2.8 x 1.3 cm subpleural right apic al opacity on image 231 of 380 is noted. This probably reflects atelectasis. There is no pneumothorax or pleural effusion. No acute fracture within the visualized bony thorax. IMPRESSION: 1. No pulmonary emboli identified. 2. Interval decrease in bilateral lower lobe airspace opacities, greater on the right, since chest C T of May 02, 2022. This favors improving pneumonia or aspiration pneumonitis. 3. Emphysema. 4. 2.8 x 1.3 cm subpleural right apical airspace opacity. The appearance favors atelectasis or scarri ng. However, a follow-up chest CT in 6 months to ensure stability/resolution is recommended. ACT 112: Negative or not required by law. Electronically signed by: Tirso Moreno M.D. 05/15/2022 2:03 PM
[2022-05-15] MEDS ORDERED: GLUCAGON FOR INJ 1 MG VIAL SQ PRN (17:25)
[2022-05-15] MEDS ORDERED: GLUCOSE 40% GEL 15 GM TUBE PO PRN (17:25)
[2022-05-15] MEDS ORDERED: DEXTROSE 50% 50 ML SYRINGE IV PRN (17:25)
[2022-05-15] MEDS ORDERED: ACETAMINOPHEN 325 MG TAB PO PRN (17:25)
[2022-05-15] MEDS ORDERED: GLUCOSE 10 TAB/TUBE PO PRN (17:25)
[2022-05-15] MEDS ORDERED: POLYETHYLENE (MIRALAX) 17 GM PACK PO PRN (17:25)
[2022-05-15] MEDS ORDERED: CARBOHYDRATES FOR HYPOGLYCEMIA PO PRN (17:25)
[2022-05-15] MEDS ORDERED: MAGNESIUM HYDROXIDE SUSP 30 ML UDC PO PRN (17:25)
[2022-05-15] MEDS: INSULIN ASPART PER UNIT SC SCH ×2 (18:46→21:27)
[2022-05-15] MEDS: ALBUT/IPRATROP 3MG/0.5MG NEB 3 ML VIAL INH SCH (19:18)
[2022-05-15] MEDS: DOXYCYCLINE HYCLATE 100 MG in DEXTROSE 5% 100 ML IV SCH (19:26)
[2022-05-15] MEDS: HEPARIN SOD 5,000 UNIT/0.5 ML VIAL SQ SCH (21:27)
[2022-05-15] MEDS: LANTUS PER UNIT CHARGE SQ SCH (21:27)
[2022-05-16] MEDS: ALBUT/IPRATROP 3MG/0.5MG NEB 3 ML VIAL INH SCH ×4 (00:05→19:25)
[2022-05-16] MEDS: LEVOTHYROXINE SODIUM 88 MCG TABLET PO SCH (06:08)
[2022-05-16] MEDS: HEPARIN SOD 5,000 UNIT/0.5 ML VIAL SQ SCH ×3 (06:08→21:13)
[2022-05-16] MEDS: DOXYCYCLINE HYCLATE 100 MG in DEXTROSE 5% 100 ML IV SCH (06:08)
[2022-05-16] MEDS: ASPIRIN 81 MG ECTAB PO SCH (08:37)
[2022-05-16] MEDS: ATORVASTATIN 20 MG TAB PO SCH (08:37)
[2022-05-16] MEDS: UMECLIDINIUM BROMIDE 62.5MCG/BLISTER 7 PUFFS/INHALER INH SCH (08:38)
[2022-05-16] MEDS: FLUTICASONE/VILANTEROL 100/25MCG 14 PUFFS/INHALER INH SCH (08:38)
[2022-05-16] MEDS: predniSONE 20 MG TAB PO SCH (08:38)
[2022-05-16] MEDS: INSULIN ASPART PER UNIT SC SCH ×4 (08:45→21:19)
[2022-05-16] MEDS: LANTUS PER UNIT CHARGE SQ SCH ×2 (08:45→21:19)
--- NOTE | 2022-05-16 13:02 | Hospitalist Progress Note ---
Date of Service May 16, 2022 Assessment & Plan (1) COPD exacerbation: Plan: ongoing hospitalized for same from 05/02 to 05/06 -- during that admission had b/l pneumonia Rx with abx and had COPD flare Rx with IV then PO steroids he improved nicely during that admission and when he was d/c his lungs were very clear, O2 sats were wnl, and was d/c home on short steroid course despite such his cough/wheezing have never fully resolved CTA chest - no PE, previous b/l pneumonia improved radiographically, still with irregular infiltrate RUL procal negative I suspect he has ongoing, active/symptomatic COPD and needs resumption of high- dose steroids other possibility is that he has picked up a new pathogen since last admission - either viral or bacterial send sputum cx VERY low threshold to involve [facility] as he follows with them last PFTs in 04/2022 showed severe emphysema/obstruction in addition to steroids, home inhalers, neb treatments, mucinex - will add chest PT twice daily at this time will d/c doxy for now and await sputum cx (2) Pneumonia: Plan: b/l admitted for same in April radiographically improved on CTA chest completed yesterday procal negative very robust appetite stop doxy (3) Hyperlipidemia: Plan: cont statin (4) Tobacco use: (5) Type 2 diabetes mellitus without complication: Plan: cont lantus cont novolog adjust as needed Plan DVT proph - heparin TID Admission and Anticipated Discharge Date Admission Date: May 15, 2022 Subjective patient was eating lunch during the visit he continues to cough and have sputum production but he denies feeling short of breath at rest this am appetite is robust continues with wheezing he had ongoing neck pain after steroids were tapered off after his previous hospital stay his neck was very sore yesterday; today feels much better with improved range of motion denies shoulder pain denies proximal muscle weakness of shoulder or hip girdles Review of Systems Review of Systems: gen - no fevers, no chills cv - no cp, no orthopnea pulm - no hemoptysis; sputum is thick/yellow GI - no abd pain Physical Exam Physical Exam: gen - NAD, pleasant, coughing mouth - no thrush; MMM neck - no JVD heart - RRR, s1 s2 lungs - diffuse wheezes b/l all lung segments; mild rales bases; no distress abd - soft NT ND BS+ ext - no edema, pulses 2+ b/l psych - a/o x 3 Results & Data Results & Data ([facility]) Vital Signs (Past 12 Hours) Vital Signs Temp Pulse Resp BP Pulse Ox O2 Del Method 05/16/22 12:58 94 H 16 92 Room Air 05/16/22 08:15 Room Air 05/16/22 07:38 36.9 C 55 L 18 117/70 97 Room Air 05/16/22 07:23 62 16 96 Room Air Laboratory Results Laboratory Results - last 24 hr 05/16/22 05/16/22 05/16/22 06:00 08:21 12:19 POC Glucose 106 H 173 H Nasal Screen MRSA (PCR) Negative 05/16/22 05/16/22 17:10 20:29 POC Glucose 158 H 135 H Nasal Screen MRSA (PCR) PG Care Time/CCT Total # of Minutes Spent Total Time Spent with Patient: Total time spent is greater than 50% in coordination of care (as documented) at patient's floor/unit and/or counseling patient: Coding Level of Care Code 84587 Subseq Hosp Care Lvl 2 Diagnoses COPD exacerbation J44.1 Pneumonia J18.9 Hyperlipidemia E78.5 Tobacco use Z72.0 Type 2 diabetes mellitus without complication E11.9
[2022-05-16] MEDS: guaiFENesin 600 MG TABCR PO SCH ×2 (14:24→21:13)
--- NOTE | 2022-05-16 16:41 | Electrocardiogram Report ---
Test Reason : Blood Pressure : / mmHG Vent. Rate : 062 BPM Atrial Rate : 062 BPM P-R Int : 226 ms QRS Dur : 102 ms QT Int : 414 ms P-R-T Axes : 083 079 072 degrees QTc Int : 420 ms Sinus rhythm with 1st degree A-V block Otherwise normal ECG When compared with ECG of 02-MAY-2022 05:11, No significant change was found Confirmed by Gael Mei ([id number]) on 05/16/2022 4:41:04 PM Referred By: REFERRED SELF Confirmed By:Gael Mei
[2022-05-16] MEDS: methylPREDNISolone 40 MG in SYRINGE 0 ML IV SCH (21:24)
[2022-05-17] MEDS: ALBUT/IPRATROP 3MG/0.5MG NEB 3 ML VIAL INH SCH ×4 (01:34→19:09)
[2022-05-17] MEDS: LEVOTHYROXINE SODIUM 88 MCG TABLET PO SCH (05:58)
[2022-05-17] MEDS: HEPARIN SOD 5,000 UNIT/0.5 ML VIAL SQ SCH ×3 (05:58→21:15)
[2022-05-17 06:53] LABS: Basophils # (auto) 0.02 K/uL (0-0.2); Basophils % (auto) 0.2 %; Hematocrit (blood only) 44.9 % (40.1-51.0); Hemoglobin 15.4 g/dl (14.0-18.0); Immature Granulocytes # (auto) 0.07 K/uL (0.00-0.02); Immature Granulocytes % (auto) 0.6 %; Lymphocytes # (auto) 0.83 K/uL (1.2-3.4); Lymphocytes % (auto) 6.6 %; Mean Corpuscular Hemoglobin 30.4 pg (25.0-34.0); Mean Corpuscular Hgb Conc 34.3 g/dL (32.0-36.0); Mean Corpuscular Volume 88.6 fL (80.0-100.0); Mean Platelet Volume 9.5 fL (9.4-12.4); Monocytes # (auto) 0.48 K/uL (0.24-0.82); Monocytes % (auto) 3.8 %; Neutrophils # (auto) 11.15 K/uL (1.4-6.5); Neutrophils % (auto) 88.8 %; Platelet Count 454 K/uL (130-400); RDW Coefficient of Variation 14.4 % (11.5-14.5); Red Blood Count 5.07 M/uL (4.63-6.08); White Blood Count 12.55 K/ul (4.8-10.8)
[2022-05-17 07:11] LABS: BUN Creatinine Ratio 34.3 (10-20); Calcium 9.2 mg/dl (8.5-10.1); Creatinine Clr Calc Pharmacy 79.4 ml/min; Est GFR (African American) 105.2 ml/min; Est GFR (Non-African American) 90.8 ml/min; Potassium 4.1 mmol/L (3.5-5.1)
[2022-05-17] MEDS: LANTUS PER UNIT CHARGE SQ SCH ×2 (09:34→20:27)
[2022-05-17] MEDS: INSULIN ASPART PER UNIT SC SCH ×4 (09:34→20:27)
[2022-05-17] MEDS: guaiFENesin 600 MG TABCR PO SCH ×2 (09:35→20:28)
[2022-05-17] MEDS: ATORVASTATIN 20 MG TAB PO SCH (09:35)
[2022-05-17] MEDS: FLUTICASONE/VILANTEROL 100/25MCG 14 PUFFS/INHALER INH SCH (09:35)
[2022-05-17] MEDS: ASPIRIN 81 MG ECTAB PO SCH (09:35)
[2022-05-17] MEDS: UMECLIDINIUM BROMIDE 62.5MCG/BLISTER 7 PUFFS/INHALER INH SCH (09:36)
[2022-05-17] MEDS: methylPREDNISolone 40 MG in SYRINGE 0 ML IV SCH ×2 (09:36→20:29)
--- NOTE | 2022-05-17 20:19 | Hospitalist Progress Note ---
Date of Service May 17, 2022 Assessment & Plan (1) COPD exacerbation: Plan: ongoing but improved with IV steroids hospitalized for same from 05/02 to 05/06 -- during that admission had b/l pneumonia Rx with abx and had COPD flare Rx with IV then PO steroids he improved nicely during that admission and when he was d/c his lungs were very clear, O2 sats were wnl, and was d/c home on short steroid course despite such his cough/wheezing never fully resolved CTA chest - no PE, previous b/l pneumonia improved radiographically, still with irregular infiltrate RUL (see below) procal negative I suspect he has ongoing, active/symptomatic COPD and needs resumption of high- dose steroids other possibility is that he has picked up a new pathogen since last admission - either viral or bacterial sputum cx sent and is pending; defer on abx unless culture grows a pathogen or he fails to improve last PFTs in 04/2022 showed severe emphysema/obstruction cont steroids, home inhalers, neb treatments, mucinex, and BID chest PT (2) Pneumonia: Plan: recent b/l pneumonia, admitted in 04/2022 for same radiographically improved on CTA chest completed hospital day #1 procal negative very robust appetite observe off of antibiotics await final sputum cx result (3) Hyperlipidemia: Plan: cont statin (4) Tobacco use: Plan: smoking cessation desperately needed given the severity of his COPD (5) Type 2 diabetes mellitus without complication: Plan: cont lantus cont novolog adjust as needed (6) Urinary frequency: Plan: check u/a, r/o UTI (7) Abnormal chest CT: Plan: RUL infiltrate noted on 04/[address], and again it is present this admission could this be lung ca?? will d/w Dr Griffin tomorrow in light of severe weight loss and this new infiltrate - bronchoscopy?? 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 unfortunately the need for steroids for his COPD clouds the clinical picture however, when steroids are weaned off in the next few weeks - if neck pain returns quickly - I would be very suspicious for PMR Plan DVT proph - heparin TID change observation status to full admission status Admission and Anticipated Discharge Date Admission Date: May 17, 2022 Subjective patient feels better today breathing more easily not as much cough sputum production is minimal, although he did have some after a session of chest physiotherapy he does not mind the chest PT dyspnea improved eating well no fevers no new complaints Review of Systems Review of Systems: gen - no fevers or chills; does endorse being tired today cv - no chest pain or tightness pul - improved wheezing GI - no abd pain or N/V - urinary frequency present but no dysuria Physical Exam 2 Physical Exam: gen - NAD, pleasant; looks better today mouth - no thrush; MMM neck - no JVD heart - RRR, s1 s2, no murmur lungs - wheezes b/l improved today; no rales; no distress; airation is better abd - soft NT ND BS+ ext - no edema, pulses 2+ b/l psych - a/o x 3 Results & Data Results & Data ([facility]) Vital Signs (Past 12 Hours) Vital Signs Temp Pulse Pulse Resp BP Pulse Ox O2 Del Method 05/17/22 19:10 73 16 93 Room Air 05/17/22 15:09 36.6 C 64 16 110/71 95 Room Air 05/17/22 13:18 72 16 94 Room Air 05/17/22 11:30 36.4 C L 60 18 114/70 96 Room Air 05/17/22 08:30 Room Air Laboratory Results Laboratory Results - last 24 hr 05/16/22 05/17/22 05/17/22 20:29 06:33 06:33 WBC 12.55 H RBC 5.07 Hgb 15.4 Hct 44.9 MCV 88.6 MCH 30.4 MCHC 34.3 RDW Std Deviation 46.0 RDW Coeff of Samantha 14.4 Plt Count 454 H MPV 9.5 Immature Gran % (Auto) 0.6 Neut % (Auto) 88.8 Lymph % (Auto) 6.6 Hitchcock % (Auto) 3.8 Eos % (Auto) 0.0 Baso % (Auto) 0.2 Neut # (Auto) 11.15 H Lymph # (Auto) 0.83 L Hitchcock # (Auto) 0.48 Eos # (Auto) 0.00 Baso # (Auto) 0.02 Immature Gran # (Auto) 0.07 H Sodium 136 Potassium 4.1 Chloride 101 Carbon Dioxide 30 Anion Gap 5 BUN 23 Creatinine 0.67 Est Cr Clr Drug Dosing 79.4 Est GFR ( Amer) 105.2 Est GFR (Non-Af Amer) 90.8 BUN/Creatinine Ratio 34.3 H Glucose 140 H POC Glucose 135 H Calcium 9.2 05/17/22 05/17/22 05/17/22 08:13 12:07 17:21 WBC RBC Hgb Hct MCV MCH MCHC RDW Std Deviation RDW Coeff of Samantha Plt Count MPV Immature Gran % (Auto) Neut % (Auto) Lymph % (Auto) Hitchcock % (Auto) Eos % (Auto) Baso % (Auto) Neut # (Auto) Lymph # (Auto) Hitchcock # (Auto) Eos # (Auto) Baso # (Auto) Immature Gran # (Auto) Sodium Potassium Chloride Carbon Dioxide Anion Gap BUN Creatinine Est Cr Clr Drug Dosing Est GFR ( Amer) Est GFR (Non-Af Amer) BUN/Creatinine Ratio Glucose POC Glucose 124 H 157 H 143 H Calcium PG Care Time/CCT Total # of Minutes Spent Total Time Spent with Patient: Total time spent is greater than 50% in coordination of care (as documented) at patient's floor/unit and/or counseling patient: Coding Level of Care Code 85805 Subseq Hosp Care Lvl 2 Diagnoses COPD exacerbation J44.1 Pneumonia J18.9 Hyperlipidemia E78.5 Tobacco use Z72.0 Type 2 diabetes mellitus without complication E11.9 Urinary frequency R35.[address] R93.89 Neck pain M54.2
[2022-05-17] MEDS: MELATONIN 3 MG TAB PO SCH (21:15)
[2022-05-18] MEDS: ALBUT/IPRATROP 3MG/0.5MG NEB 3 ML VIAL INH SCH ×4 (00:31→19:36)
[2022-05-18 04:05] LABS: Appearance Urine Clear (Clear); Bilirubin Urine Negative (Negative); Blood Urine Negative (Negative); Color Urine Yellow; Glucose Urine UA 3+ (Negative); Ketones Urine Negative (Negative); Leukocyte Esterase Urine Negative (Negative); Nitrite Urine Negative (Negative); Protein Urine Negative (Negative); Specific Gravity Urine 1.023 (1.000-1.030); Urobilinogen Urine Negative (Negative); pH Urine 5.5 (4.5-7.5)
[2022-05-18] MEDS: HEPARIN SOD 5,000 UNIT/0.5 ML VIAL SQ SCH ×3 (05:55→21:24)
[2022-05-18] MEDS: LEVOTHYROXINE SODIUM 88 MCG TABLET PO SCH (05:55)
[2022-05-18] MEDS: UMECLIDINIUM BROMIDE 62.5MCG/BLISTER 7 PUFFS/INHALER INH SCH (08:55)
[2022-05-18] MEDS: FLUTICASONE/VILANTEROL 100/25MCG 14 PUFFS/INHALER INH SCH (08:55)
[2022-05-18] MEDS: guaiFENesin 600 MG TABCR PO SCH ×2 (08:56→21:24)
[2022-05-18] MEDS: ATORVASTATIN 20 MG TAB PO SCH (08:56)
[2022-05-18] MEDS: ASPIRIN 81 MG ECTAB PO SCH (08:56)
[2022-05-18] MEDS: methylPREDNISolone 40 MG in SYRINGE 0 ML IV SCH (08:57)
[2022-05-18] MEDS: INSULIN ASPART PER UNIT SC SCH ×4 (09:03→21:22)
[2022-05-18] MEDS: LANTUS PER UNIT CHARGE SQ SCH ×2 (09:03→21:22)
--- NOTE | 2022-05-18 21:13 | Hospitalist Progress Note ---
Date of Service May 18, 2022 Assessment & Plan (1) COPD exacerbation: Plan: resolved hospitalized for same from 05/02 to 05/06 -- during that admission had b/l pneumonia Rx with abx and had COPD flare Rx with IV then PO steroids he improved nicely during that admission and when he was d/c his lungs were very clear, O2 sats were wnl, and was d/c home on short steroid course despite such his cough/wheezing never fully resolved CTA chest - no PE, previous b/l pneumonia improved radiographically, still with irregular infiltrate RUL (see below) procal negative I suspect he has ongoing, active/symptomatic COPD and needs resumption of high- dose steroids other possibility is that he has picked up a new pathogen since last admission - either viral or bacterial sputum cx sent and is pending; defer on abx unless culture grows a pathogen or he fails to improve last PFTs in 04/2022 showed severe emphysema/obstruction cont steroids, home inhalers, neb treatments, mucinex, and BID chest PT can d/c IV steroids; change to PO prednisone in am - wean over 10-14 days; start with 40mg daily I spoke with his primary global project manager today - Dr Griffin told him about back to back hospital stays, RUL infiltrate, weight loss, etc he agrees with plan and close f/u with him within a week of d/c (2) Pneumonia: Plan: recent b/l pneumonia, admitted in 04/2022 for same radiographically improved on CTA chest completed hospital day #1 procal negative very robust appetite observe off of antibiotics await final sputum cx result (3) Hyperlipidemia: Plan: cont statin (4) Tobacco use: Plan: smoking cessation desperately needed given the severity of his COPD (5) Type 2 diabetes mellitus without complication: Plan: cont lantus cont novolog adjust as needed (6) Urinary frequency: Plan: likely due to glucosuria in face of steroids u/a neg except for glucose (7) Abnormal chest CT: Plan: RUL infiltrate noted on 04/[address], and again it is present this admission could this be lung ca?? d/w Dr Griffin today in light of severe weight loss and this new infiltrate - bronchoscopy?? 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 unfortunately the need for steroids for his COPD clouds the clinical picture however, when steroids are weaned off in the next few weeks - if neck pain returns quickly - I would be very suspicious for PMR Plan DVT proph - heparin TID hopeful for d/c home tomorrow 2-step before discharge Admission and Anticipated Discharge Date Admission Date: May 17, 2022 Subjective feels good wheezing/cough/congestion all improved minimal sputum production even with the use of chest PT vest eating well no new complaints Review of Systems Review of Systems: gen - no fever cv - no cp GI - no emesis or nausea or pain Physical Exam Physical Exam: gen - NAD, pleasant; looks very good mouth - no thrush; MMM neck - no JVD heart - RRR, s1 s2, no murmur lungs - wheezes largely resolved; no rales; no distress; airation is better all lung segments abd - soft NT ND BS+ ext - no edema, pulses 2+ b/l psych - a/o x 3 Results & Data Results & Data ([facility]) Vital Signs (Past 12 Hours) Vital Signs Temp Pulse Pulse Pulse Resp BP Pulse Ox 05/18/22 19:37 66 18 91 05/18/22 15:46 36.8 C 68 16 120/70 94 05/18/22 11:30 36.9 C 64 17 110/70 96 05/18/22 12:22 73 19 95 O2 Del Method 05/18/22 19:37 Room Air 05/18/22 15:46 Room Air 05/18/22 11:30 Room Air 05/18/22 12:22 Room Air Laboratory Results Laboratory Results - last 24 hr 05/18/22 05/18/22 05/18/22 03:56 08:08 12:18 POC Glucose 115 H 127 H Urine Color Yellow Urine Appearance Clear Urine pH 5.5 Ur Specific Park 1.023 Urine Protein Negative Urine Glucose (UA) 3+ H Urine Ketones Negative Urine Blood Negative Urine Nitrite Negative Urine Bilirubin Negative Urine Urobilinogen Negative Ur Leukocyte Esterase Negative 05/18/22 05/18/22 17:09 20:27 POC Glucose 202 H 110 H Urine Color Urine Appearance Urine pH Ur Specific Park Urine Protein Urine Glucose (UA) Urine Ketones Urine Blood Urine Nitrite Urine Bilirubin Urine Urobilinogen Ur Leukocyte Esterase PG Care Time/CCT Total # of Minutes Spent Total Time Spent with Patient: Total time spent is greater than 50% in coordination of care (as documented) at patient's floor/unit and/or counseling patient: Coding Level of Care Code 38158 Subseq Hosp Care Lvl 2 Diagnoses COPD exacerbation J44.1 Pneumonia J18.9 Hyperlipidemia E78.5 Tobacco use Z72.0 Type 2 diabetes mellitus without complication E11.9 Urinary frequency R35.[address] R93.89 Neck pain M54.2
[2022-05-18] MEDS: MELATONIN 3 MG TAB PO SCH (21:24)
[2022-05-19] MEDS: ALBUT/IPRATROP 3MG/0.5MG NEB 3 ML VIAL INH SCH ×3 (00:10→12:49)
[2022-05-19] MEDS: HEPARIN SOD 5,000 UNIT/0.5 ML VIAL SQ SCH ×2 (06:21→13:01)
[2022-05-19] MEDS: LEVOTHYROXINE SODIUM 88 MCG TABLET PO SCH (06:22)
[2022-05-19 06:28] LABS: Hematocrit (blood only) 47.2 % (40.1-51.0); Hemoglobin 15.7 g/dl (14.0-18.0); Mean Corpuscular Hemoglobin 30.3 pg (25.0-34.0); Mean Corpuscular Hgb Conc 33.3 g/dL (32.0-36.0); Mean Corpuscular Volume 91.1 fL (80.0-100.0); Mean Platelet Volume 9.5 fL (9.4-12.4); Platelet Count 431 K/uL (130-400); RDW Coefficient of Variation 14.3 % (11.5-14.5); RDW Standard Deviation 47.8 fL (36.4-46.3); Red Blood Count 5.18 M/uL (4.63-6.08); White Blood Count 11.53 K/ul (4.8-10.8)
[2022-05-19 06:45] LABS: BUN Creatinine Ratio 26.6 (10-20); Calcium 9.3 mg/dl (8.5-10.1); Creatinine Clr Calc Pharmacy 67.3 ml/min; Est GFR (African American) 98.3 ml/min; Est GFR (Non-African American) 84.8 ml/min
[2022-05-19] MEDS: FLUTICASONE/VILANTEROL 100/25MCG 14 PUFFS/INHALER INH SCH (08:34)
[2022-05-19] MEDS: ASPIRIN 81 MG ECTAB PO SCH (08:34)
[2022-05-19] MEDS: ATORVASTATIN 20 MG TAB PO SCH (08:34)
[2022-05-19] MEDS: guaiFENesin 600 MG TABCR PO SCH (08:35)
[2022-05-19] MEDS: UMECLIDINIUM BROMIDE 62.5MCG/BLISTER 7 PUFFS/INHALER INH SCH (08:35)
[2022-05-19] MEDS: LANTUS PER UNIT CHARGE SQ SCH (08:39)
[2022-05-19] MEDS: INSULIN ASPART PER UNIT SC SCH ×2 (08:39→13:01)
[2022-05-19] MEDS: predniSONE 20 MG TAB PO SCH (08:52)
--- NOTE | 2022-05-19 13:15 | Discharge Summary ---
Date of Service date of admission - May 15, 2022 date of discharge - May 19, 2022 Admission HPI Per Admitting Provider Antonio is an 81-year-old male with a past medical history of hyperlipidemia, tobacco abuse, PVCs, chronic dyspnea, hypothyroidism, hypertension, COPD with emphysema, type II DM with recent discharge 05/06/2022 after treatment for pneumonia treated with Unasyn/azithromycin converted to Augmentin on discharge who was referred for evaluation/admission by his PCP Shortness of breath, limited ambulation No fevers, chills Cough productive for cream colored mucous +wheezing, significatnly worsening over last 1-2 days NO nausea, vomiting, diarrhea, constipation NO falls, no passing out No chest pain, chest pressure CXR: Emphysema with chronic interstitial coarsening. Subsegmental bibasilar opacities favoring atelectasis versus mild nonspecific pneumonitis No dysuria, slight increase in urine production, generally light colored Lives in one story at home. Normally able to get aroudn without help. Slow, ambulation limited by SoB in the last week. Scheduled with Dr. Griffni in a few months. O2 sat 90-91%, desats to mid 80s while speaking during exam Medical History: Reviewed Medications: Reviewed Surgical History: Reviewed Allergies: Reviewed Social History: Cigarette smoker, 1ppw currently. Has smoked for >60 years, at peak 3ppd for many years. No etoh use. Code Status: Full Code Principal Diagnosis COPD exacerbation Discharge Exam gen - NAD, pleasant; looks very good mouth - no thrush; MMM neck - no JVD; range of motion much improved from his admission examination heart - RRR, s1 s2, no murmur lungs - b/l wheezes much improved; no rales; no distress; airation fair/good abd - soft NT ND BS+ ext - no edema, pulses 2+ b/l psych - a/o x 3 Discharge Data Allergies Allergy/AdvReac Type Severity Reaction Status Date / Time No Known Allergies Allergy Mild Verified 05/20/22 13:32 Procedures Performed 2-step ambulatory oxygen test - need for home O2, 2 liters with ambulation only Ordered Studies Chest X-Ray 05/15/22 12:04 XR chest 1V portable HISTORY: 81 years-old Male Dyspnea acute shortness of breath COMPARISON: Chest radiographs 09/27/2021, chest CT 05/02/2022. TECHNIQUE: AP view of the chest FINDINGS: Cardiac silhouette is normal in size. Emphysema with chronic interstitial coarsening. No pneumothorax, pleural effusion, airspace consolidation or overt pulmonary edema. Subsegmental mild bibasilar densities. Degenerative changes of the shoulders and spine. IMPRESSION: 1. Emphysema with chronic fibrotic change. 2. Subsegmental bibasilar opacities favor atelectasis. A mild nonspecific pneumonitis could appear similarly. ACT 112: Negative or not required by law. The above report was generated using voice recognition software. It may contain grammatical, syntax or spelling errors. Electronically signed by: Adeel Breen M.D. 05/15/2022 12:30 PM Chest CTA 05/15/22 13:01 CT ANGIOGRAPHY OF THE CHEST, PULMONARY EMBOLUS PROTOCOL CLINICAL HISTORY: Increased shortness of breath. Cough. Evaluate for pulmonary embolus. COMPARISON STUDY: Chest radiograph performed earlier today and chest CT May 02, 2022. Chest CT May 09, 2010. TECHNIQUE: Following IV administration of 110 mL of Optiray, helical axial images of the chest were obtained utilizing the pulmonary embolus protocol. Maximal intensity projections and sagittal and coronal reformats were viewed on an independent 3D workstation. IV contrast was administered without com plication. Automated exposure control was utilized for the study. A dose lowering technique was utilized adhering to the principles of ALARA. CT DOSE: 381.36 mGy.cm FINDINGS: No pulmonary emboli are identified. There is no thoracic aortic dissection. Size of the heart is normal. No pericardial effusion is present. Mediastinal lymph nodes have decreased in size since CT of May 02, 2022. Mild right lower lobe airspace opacity has improved since prior CT. Left lower lobe opacity has improved as well. Persistent bronchial wall thickening with secretions within the airways are noted. The previously described right upper lobe patchy opacity has nearly completely resolved. This was infectious. Severe emphysema is again noted. A 2.8 x 1.3 cm subpleural right apical opacity on image 231 of 380 is noted. This probably reflects atelectasis. There is no pneumothorax or pleural effusion. No acute fracture within the visualized bony thorax. IMPRESSION: 1. No pulmonary emboli identified. 2. Interval decrease in bilateral lower lobe airspace opacities, greater on the right, since chest CT of May 02, 2022. This favors improving pneumonia or aspiration pneumonitis. 3. Emphysema. 4. 2.8 x 1.3 cm subpleural right apical airspace opacity. The appearance favors atelectasis or scarring. However, a follow-up chest CT in 6 months to ensure stability/resolution is recommended. ACT 112: Negative or not required by law. Electronically signed by: Tirso Moreno M.D. 05/15/2022 2:03 PM Hospital Course (1) COPD exacerbation: Hospitalized for same from 05/02 to 05/06 -- during that admission had b/l pneumonia treated with antibiotics and had COPD flare treated with IV then PO steroids he improved nicely during that admission and when he was d/c his lungs were very clear, O2 sats were wnl, and was d/c home on short steroid course despite such his cough/wheezing never fully resolved CTA chest this admission - no PE, previous b/l pneumonia improved radiographically, still with irregular infiltrate RUL (see below) procal was negative He improved once again with IV steroids and bronchodilators. Given the refractory nature of this current COPD flare he will d/c to home with a prolonged prednisone taper. The taper will be 12 days in duration. Tobacco cessation discussed. Sputum and blood cultures were negative while here. Of note - last PFTs in 04/2022 showed severe emphysema/obstruction. I spoke with his primary coagulation operator Dr Rudolph Griffin will see Mr Seymour shortly after discharge to ensure he is improving. 2-step ambulatory O2 test on day of discharge showed that he needs 2 liters NC O2 with ambulation/activity. He was counseled on the dangers of concomitant O2 use and smoking including fire risk. (2) Pneumonia: recent b/l pneumonia, admitted in 04/2022 for same radiographically improved on CTA chest completed during this hospitalization procal negative he had a very robust appetite he was observed off of antibiotics sputum cx was negative (3) Abnormal chest CT: RUL infiltrate noted on 04/[address], and again the infiltrate was present on this admission's CT chest. in light of severe weight loss and this new infiltrate - outpatient bronchoscopy? serial CT chest in the future to ensure radiographic resolution? he will f/u with Dr Griffin from [facility] shortly after discharge. (4) Hyperlipidemia: cont statin (5) Tobacco use: smoking cessation desperately needed given the severity of his COPD and now need for home oxygen (6) Type 2 diabetes mellitus without complication: required basal-bolus SC insulin during the stay due to high-dose IV steroids he will resume metformin twice daily at discharge (7) Urinary frequency: likely due to glucosuria in face of steroids u/a neg except for glucose (8) Neck pain: patient had severe neck pain during the prior hospital stay in April the pain RAPIDLY improved with steroids CT cervical spine then showed DJD and pain was attributed to such after hospital discharge recently, and following completion of his steroid course, his pain returned quickly similar to his last admission his neck pain has improved rapidly once again with steroids could he have underlying PMR?? unfortunately the need for steroids for his COPD clouds the clinical picture however, when steroids are weaned off in the next few weeks - if neck pain returns quickly - I would be very suspicious for PMR inflammatory markers were NOT checked during this visit due to the ongoing COPD exacerbation (9) Severe protein-calorie malnutrition: patient has had severe weight loss with ~25kg of weight loss since 05/2021. he needs close f/u with his coagulation operator and strongly consider GI referral as well (consideration of EGD/colonoscopy, etc). Total Time Total Time Spent Total Time Spent (In Minutes): 40 Discharge Plan Discharge Items Patient Disposition: Home - Self-Care Reason For Visit: COPD exacerbation Discharge Diagnosis: 1. severe COPD with exacerbation 2. recent pneumonia - CT scan shows that it is resolving nicely 3. need for home oxygen, 2 liters with activity 4. severe weight loss - follow-up for this needed 5. tobacco use 6. recurrent neck pain - follow-up needed Activity: As commented below Activity Comment: gradually increase your activities over the next 1-2 weeks Non-emergency contact: Primary Care Provider and Production Weigher Call non-emergency contact if: you have any medication questions, your symptoms worsen and you have a fever Follow-up/Referrals: Dillon Griffin MD [Physician] - 05/27/22 11:00 am (PER DR GRIFFIN AND DR WEST; PLEASE FOLLOW UP WITHIN A WEEK.) Kimberlee Syed MD [Primary Care Provider] - 05/26/22 11:00 am (APPT WITH IVONE JEAN PA-C) Diet: Carb Consistent or DM2 Addtl Attending Provider Instructions: Mr Seymour, You were hospitalized for ongoing COPD exacerbation. A CT scan of the chest showed that your recent pneumonia is resolving nicely. Your wheezing/cough/shortness of breath improved very quickly and nicely with IV steroids. Sputum culture was negative. We did a walking oxygen test - you will need to use 2 liters of nasal cannula oxygen with activity/ambulation - both within your home as well as when you leave your house. DO NOT SMOKE WITH OXYGEN AT YOUR HOME. THIS CAN CAUSE A HOUSE FIRE, ALBARADO TO YOUR BODY, ETC. DO NOT ALLOW OTHERS TO SMOKE IN YOUR HOME. Please talk with your family doctor and your coagulation operator on ways to help you stay smoke-free. Recommendations - 1. oxygen 2 liters with activity/ambulation. 2. prednisone taper - start this TOMORROW, 05/20. It is a 12 day prednisone taper. 3. please use your albuterol nebulizer treatments four times daily scheduled every day. 4. continue mucinex twice daily as previous. 5. check your blood sugars at least daily as previous. 6. if you do not already have one please purchase a "pulse oximeter" to check your oxygen levels on your finger at home. As long as your oxygen levels are consistently 88% or more and you are feeling well that is acceptable. check your pulse ox twice daily and as needed. Follow-up - see separate section Return to [facility] if - * you have fevers over 100 degrees * your pulse ox readings are consistently less than 88% * you have worsening shortness of breath * you have chest pain * any other concerns It was my pleasure to care for you! Dr West Pending Studies at Discharge: Yes Studies:: blood and sputum cultures but thus far negative Stand-Alone Forms: [facility], Smoking Cessation Medications and DC Order Prescriptions: New prednisone 10 mg tablet 10 mg PO .daily as directed Qty: 30 0RF Rx Instructions: start 05/20/22 - 4 tabs PO days 1-3; 3 tabs PO days 4-6; 2 tabs PO days 7-9; 1 tab PO days 10-12. Take w/ food. (DME) Oxygen Home Liters Per Minute See Rx Instructions .ROUTE .MEDSUPPLY Qty: 1 0RF Rx Instructions: 2 liters with activity/ambulation. Continued Dulera 200-5 mcg/actuation HFA aerosol inhaler 2 puff inhalation BID Qty: 13 5RF Rx Instructions: INHALE 2 PUFFS BY MOUTH TWICE A DAY metformin 1,000 mg tablet extended release 24hr 1,000 mg PO BID Qty: 180 3RF (DME) OneTouch Ultra Test Strip See Rx Instructions .Route Qty: 200 3RF Rx Instructions: Test Twice per day as needed levothyroxine 88 mcg tablet 88 mcg PO QAM Qty: 90 3RF albuterol sulfate 90 mcg/actuation HFA aerosol inhaler 2 inh inhalation QID PRN (Reason: shortness of breath or wheezing) Qty: 18 3RF ipratropium-albuterol 0.5 mg-3 mg(2.5 mg base)/3 mL solution for nebulization 3 ml inhalation Q4H PRN (Reason: shortness of breath or wheezing) Qty: 180 1RF empagliflozin 25 mg tablet 25 mg PO QAM Qty: 90 3RF (DME) pen needle, diabetic [Novofine 32] 32 gauge x 1/4" needle See Rx Instructions .Route Qty: 100 1RF Rx Instructions: Use daily for liraglutide (victoza) injection guaifenesin [Mucinex] 600 mg Tablet Extended Release 12hr 600 mg PO Q12H Qty: 60 0RF aspirin 81 mg Tablet,Delayed Release (Dr/Ec) 81 mg PO QAM atorvastatin 20 mg tablet 20 mg PO QAM fluticasone propionate 50 mcg/actuation spray,suspension 2 spray NA QAM tiotropium bromide 2.5 mcg/actuation mist 2 puff inhalation QPM diclofenac sodium [Voltaren Arthritis Pain] 1 % Gel 4 g EXT QID PRN (Reason: neck pain, joint pain) Qty: 1 0RF Rx Instructions: purchase [id number] Discontinued dexamethasone 2 mg tablet 2 mg PO .daily as directed Qty: 12 0RF Rx Instructions: start 05/07/22: 3 tabs day 1, 2 tabs days 2-4, 1 tab days 5-7. Take w/ food. Discharge Orders: Discharge Order (Routine); Ordered 05/19/22 Ordered By: Julio West Admission Data Admit Date/Time: 05/17/22 17:17 Attending Provider: Julio West Admit Provider: Lucas Valdez Primary Care Provider: Kimberlee Syed Other Providers: Lucas Valdez Other Interventions: Discharge Summary Assessment (RN) Last Done: 05/19/22 14:39 Coding Level of Care Code D/C DAY MANAGEMENT >30 MINS Diagnoses COPD exacerbation J44.1 Pneumonia [address]18[address] R93.89 Hyperlipidemia E78.5 Tobacco use Z72.0 Type 2 diabetes mellitus without complication E11.9 Urinary frequency R35.0 Neck pain M54.2 Severe protein-calorie malnutrition E43
== END 2022-05-19 16:51 | disposition home or self-care (01) | DRG 190 ==
LOC: ED 11:32 → 3E 11:32 → SUATTDRO 13:33 → 3E 16:14

== ENCOUNTER 2022-08-21 18:21 | Inpatient (IN) ==
[2022-08-21 18:58] LABS: Basophils # (auto) 0.07 K/uL (0-0.2); Basophils % (auto) 0.6 %; Eosinophils # (auto) 0.01 K/uL (0-0.50); Eosinophils % (auto) 0.1 %; Hematocrit (blood only) 49.7 % (42.0-52.0); Hemoglobin 16.6 g/dl (14.0-18.0); Immature Granulocytes # (auto) 0.05 K/uL (0.01-0.20); Immature Granulocytes % (auto) 0.4 %; Lymphocytes # (auto) 0.63 K/uL (1.2-3.4); Lymphocytes % (auto) 5.5 %; Mean Corpuscular Hemoglobin 30.1 pg (25.0-34.0); Mean Corpuscular Hgb Conc 33.4 g/dL (32.0-36.0); Mean Platelet Volume 10.2 fL (9.4-12.4); Monocytes # (auto) 1.31 K/uL (0.11-0.59); Monocytes % (auto) 11.4 %; Platelet Count 252 K/uL (130-400); RDW Coefficient of Variation 13.2 % (11.5-14.5); RDW Standard Deviation 43.8 fL (36.4-46.3); Red Blood Count 5.52 M/uL (4.70-6.10); White Blood Count 11.47 K/ul (4.8-10.8)
--- NOTE | 2022-08-21 19:09 | XRay Report ---
XR chest 1V portable CLINICAL HISTORY: Sepsis COMPARISON STUDY: Chest radiograph and chest CT May 15, 2022. FINDINGS: Lung hyperexpansion with underlying emphysema. No pneumothorax or pleural effusion is prese nt. There is no evidence for pulmonary edema. Cardiac size is normal. Mediastinal contours are normal . Interstitial thickening is slightly greater within the right lung. No consolidation is identified. IMPRESSION: 1. Mild reticulonodular interstitial thickening within the right lung. This is likely chronic however a mild infectious process cannot be excluded. No consolidation identified. 2. Emphysema. ACT 112: Negative or not required by law. Electronically signed by: Tirso Moreno M.D. 08/21/2022 7:07 PM
[2022-08-21 19:17] LABS: Alanine Aminotransferase 14 U/L (7-52); Albumin Globulin Ratio 1.4 (0.9-2); Albumin Level 4.5 gm/dl (3.4-5.0); Alkaline Phosphatase 77 U/L (34-104); Anion Gap 9 (3-11); Aspartate Aminotransferase 16 U/L (13-39); BUN Creatinine Ratio 25.7 (10-20); Bilirubin,Total 0.8 mg/dl (0.2-1.0); Blood Urea Nitrogen 18 mg/dl (6-23); Calcium 9.7 mg/dl (8.5-10.1); Carbon Dioxide 26 mmol/L (21-32); Chloride 102 mmol/L (98-107); Est GFR (African American) 103.3 ml/min; Est GFR (Non-African American) 89.1 ml/min; Globulin 3.2 gm/dl (2.5-4.0); Glucose 117 mg/dl (70-99(Fasting)); Magnesium 1.9 mg/dl (1.7-2.4); Sodium 137 mmol/L (136-145); Total Protein 7.7 gm/dl (6.0-8.3)
[2022-08-21 19:22] LABS: Troponin I High Sensitivity 13.8 pg/ml (0-20)
--- NOTE | 2022-08-21 19:27 | Emergency Department Note ---
Impression & Plan COPD exacerbation, Hypoxia, Dyspnea, Tobacco use disorder ED Provider Note NAME: KATHERYN TORREZ JR AGE: 81 SEX: M : 1940 ARRIVES VIA: Walk-In INFORMANT: Patient, ED PROVIDER(S): October 25 CHIEF COMPLAINT: SOB, cough MEDICAL DECISION MAKING: Patient presents due to concern for shortness of breath and cough. Blood work was obtained and IV was established. Patient was ordered breathing treatments, IV steroids, IV magnesium and IV fluids. Patient has very mild elevation white count 11 with normal H&H and platelet cou nt. Kidney function with prerenal azotemia and electrolytes are normal. Patient chest x-ray shows reticulonodular opacities which are likely chronic. Procalcitonin is not elevated and lactate is normal. Given the patient's increasing oxygen requirement I did speak with the on-call hospitalist service and the patient was admitted by Dr. Guerrero. Critical Care: I have personally spent 37 minutes of critical care time in direct management of this patient. This includes bedside care, interpretation of diagnostic studies, and testing, discussion with consultants, patient, and family members, and other require inpatient management activities. This 37 minutes is in excess of all separately billable procedures. Prior /Outside records reviewed: I did review the patient's pulmonary visit with Dr. Abraham in May 2022. Patient does have a known history of severe COPD currently on Dulera and Spiriva. Patient reportedly quit smoking at that time. Differential diagnosis: Reactive airway disease, pneumonia, pneumothorax, COPD, CHF, infections, cardiac ischemia, pulmonary embolism, musculoskeletal, gastrointestinal, as well as other pathologies. Diagnostics, as interpreted by me: ECG: Sinus, rate of 86, first-degree AV block, prolonged FL, normal QRS. Cardiac monitoring: An order was placed for continuous cardiac monitoring. The monitor shows a rate of 88 with sinus Bamat as long as he gets up tomorrow rhythm. Patient was placed on pulse oximetry Medical decision rules: None Imaging studies: See below HPI: Patient presents due to concern for shortness of breath and cough. Patient states that his symptoms have been progressively worse over the last 3 to 4 days. Patient states he does not have much in terms of productive cough but has had noticed increasing shortness of breath and dyspnea on exertion. No orthopnea or leg swelling. Patient states he is compliant with his medications and has been using his inhalers but without significant improvement in symptoms. Patient denies any chest pain or leg swelling. No known sick contacts or recent travel. Patient does have a known history of COPD. Patient states he last used tobacco on 08/06. PAST MEDICAL HISTORY: See Below PAST SURGICAL HISTORY: See Below SOCIAL HISTORY: See Below HOME MEDICATIONS: See Below ALLERGIES: See Below VITALS: See Below PHYSICAL EXAMINATION: GENERAL: NAD, non-toxic. NC in place EYE EXAM: Normal conjunctiva. PERRL, no anisocoria and EOM's grossly intact w/o pain. NECK: Supple, no nuchal rigidity, no adenopathy, non-tender. No signs of meningismus. FROM of the neck with good chin to chest and neck extension. No stridor. LUNGS: Diffuse wheezings and snoring sounds throughout. Normal chest wall mechanics. HEART: NSR, no MRG. ABDOMEN: Abdomen soft, non-tender, normo-active bowel sounds, no masses, no rebound or guarding. BACK: No CVA TTP. SKIN: No rashes and no bruising. UPPER EXTREMITIES: Upper extremities are grossly normal. LOWER EXTREMITIES: Grossly normal, no edema. Negative Josette's sign b/l. NEUVangala symptomsRO EXAM: A&O x3, cranial nerves II-XII grossly intact, normal speech, moves all 4 extremities. Past Med/Surg History Medical History Abnormal chest CT Acquired deviated nasal septum Actinic keratosis Chronic diarrhea Chronic gout COPD (chronic obstructive pulmonary disease) case management patient COPD exacerbation COPD exacerbation COPD with emphysema inhalers daily/prn, nebulizer prn Frequent PVCs Hyperlipidemia Hypersomnolence Hypertension Hypothyroidism Incidental lung nodule, > 3mm and < 8mm Neck pain Pneumonia Pneumonia Recent unintentional weight loss over several months Severe protein-calorie malnutrition Tobacco abuse Tobacco use Type 2 diabetes mellitus without complication Surgical History History of appendectomy History of bilateral cataract extraction History of colonoscopy last 2019 History of Mohs micrographic surgery for skin cancer x3 History of tonsillectomy History of wisdom tooth extraction Hx of vasectomy Family History Other No family history of adverse response to anesthesia Denies family history of Ovarian cancer Prostate cancer Myocardial infarction Breast cancer Colorectal cancer Social History Smoking Status: Former smoker Tobacco Type: Cigarettes Cigarettes Per Day: 5 cigs a week; Second Hand Exposure: No; Hx Alcohol Use: No Hx Substance Use: No Preferred Language: Eritrean Communication Ability: Effective Visual Impairment: No Limitations Hearing Ability: Normal Oncology Patient Navigator Required: No Beliefs That Will Affect Care: None marital status: Single Current Living Situation: Alone current occupational status: retired How many Children do You have: 1 Other Information That Helps Us Care for You: No Feels Safe at Home: Yes Safety Concerns: Feels Safe At This Time Dental Care, Regularly: Yes Physical Activity Frequency: 1-2 Times per Week Seatbelt Use: always Sunscreen Use: No Assistive Devices: Oxygen - Continuous Allergies Allergies Allergy/AdvReac Type Severity Reaction Status Date / Time No Known Allergies Allergy Mild Verified 08/21/22 20:44 Home Meds Home Medications Medication Instructions Recorded Confirmed aspirin 81 mg tablet,delayed 81 mg PO QAM 05/14/21 08/21/22 release fluticasone propionate 50 2 spray NA QAM 10/09/21 08/21/22 mcg/actuation nasal spray,suspension Previous Rx's Medication Instructions Recorded metformin 1,000 mg tablet,extended 1,000 mg PO BID #180 tabs 08/12/21 release 24hr guaifenesin 600 mg tablet, 600 mg PO Q12H #60 tabs 09/27/21 extended release 12 hr (Mucinex) pen needle, diabetic 32 gauge x #100 ea 10/21/2106/11" (Novofine 32) levothyroxine 88 mcg tablet 88 mcg PO QAM #90 tabs 12/03/21 albuterol sulfate 90 mcg/actuation 2 inh inhalation QID PRN shortness 04/09/22 aerosol inhaler of breath or wheezing #18 grams diclofenac sodium 1 % topical gel 4 g EXT QID PRN neck pain, joint 05/06/22 (Voltaren Arthritis Pain) pain #1 tube Oxygen Home #1 ea 05/19/22 prednisone 10 mg tablet 10 mg PO .daily as directed #30 05/19/22 tabs atorvastatin 20 mg tablet 20 mg PO QAM #90 tabs 07/21/22 empagliflozin 25 mg tablet 25 mg PO QAM #90 tabs 07/21/22 blood sugar diagnostic (OneTouch #200 ea 07/22/22 Ultra Test strips) ipratropium 0.5 mg-albuterol 3 mg 3 ml inhalation Q4H PRN shortness 07/22/22 (2.5 mg base)/3 mL nebulization of breath or wheezing #180 vials soln tiotropium bromide 2.5 2 puff inhalation DAILY #3 Inhalers 07/22/22 mcg/actuation mist for inhalation (Spiriva Respimat) mometasone-formoterol HFA 200 2 puff inhalation BID #13 grams 07/23/22 mcg-5 mcg/actuation aerosol inhaler (Dulera) Results & Data (ED) Vital Signs Vital Signs - 24 hr 08/21/22 18:30 Temperature 37.8 C H Temperature Source Temporal Artery Scan Pulse Rate 101 H Respiratory Rate 24 Respiratory Effort / Characteristics Non-Labored Spontaneous Respiratory Depth Normal Respiratory Pattern Regular Blood Pressure 151/77 H Blood Pressure Mean 101 Pulse Oximetry 89 L Oxygen Delivery Method Room Air Sepsis Recent Fever Within 48 Hours No Sepsis New/Unexplained Change in Mental Status No Sepsis Action Taken by Nursing No Action Required Home Medications Current Medication List: was personally reviewed by me Laboratory Data Attestation: I reviewed the patient's lab results. 08/21/22 18:44 08/21/22 18:44 Lab Results 08/21/22 08/21/22 08/21/22 Range/Units 18:44 18:44 18:44 WBC 11.47 H (4.8-10.8) K/ul RBC 5.52 (4.70-6.10) M/uL Hgb 16.6 (14.0-18.0) g/dl Hct 49.7 (42.0-52.0) % MCV 90.0 (80.0-100.0) fL MCH 30.1 (25.0-34.0) pg MCHC 33.4 (32.0-36.0) g/dL RDW Std Deviation 43.8 (36.4-46.3) fL RDW Coeff of Samantha 13.2 (11.5-14.5) % Plt Count 252 (130-400) K/uL MPV 10.2 (9.4-12.4) fL Immature Gran % (Auto) 0.4 % Neut % (Auto) 82.0 % Lymph % (Auto) 5.5 % [place] % (Auto) 11.4 % Eos % (Auto) 0.1 % Baso % (Auto) 0.6 % Neut # (Auto) 9.40 H (1.40-6.50) K/uL Lymph # (Auto) 0.63 L (1.2-3.4) K/uL [place] # (Auto) 1.31 H (0.11-0.59) K/uL Eos # (Auto) 0.01 (0-0.50) K/uL Baso # (Auto) 0.07 (0-0.2) K/uL Immature Gran # (Auto) 0.05 (0.01-0.20) K/uL PT 11.3 (9.0-12.0) Seconds INR 1.1 (0.9-1.1) APTT 28.8 (21.0-31.0) Seconds PTT Ratio 1.0 Sodium 137 (136-145) mmol/L Potassium 4.0 (3.5-5.1) mmol/L Chloride 102 (98-107) mmol/L Carbon Dioxide 26 (21-32) mmol/L Anion Gap 9 (3-11) BUN 18 (6-23) mg/dl Creatinine 0.70 (0.6-1.4) mg/dl Est Cr Clr Drug Dosing Not Reportable Est GFR ( Amer) 103.3 ml/min Est GFR (Non-Af Amer) 89.1 ml/min BUN/Creatinine Ratio 25.7 H (10-20) Glucose 117 H (70-99(Fasting)) mg/dl Lactate (0.4-2.0) mmol/L Calcium 9.7 (8.5-10.1) mg/dl Magnesium 1.9 (1.7-2.4) mg/dl Total Bilirubin 0.8 (0.2-1.0) mg/dl AST 16 (13-39) U/L ALT 14 (7-52) U/L Alkaline Phosphatase 77 (34-104) U/L Troponin I High Sens 13.8 (0-20) pg/ml Total Protein 7.7 (6.0-8.3) gm/dl Albumin 4.5 (3.4-5.0) gm/dl Globulin 3.2 (2.5-4.0) gm/dl Albumin/Globulin Ratio 1.4 (0.9-2) Procalcitonin (0-0.5) ng/ml SARS-CoV-2 (PCR) (Negative) Influenza Type A (PCR) (Neg) Influenza Type B (PCR) (Neg) RSV (RT-PCR) (Neg) 08/21/22 08/21/22 08/21/22 Range/Units 18:44 18:44 19:36 WBC (4.8-10.8) K/ul RBC (4.70-6.10) M/uL Hgb (14.0-18.0) g/dl Hct (42.0-52.0) % MCV (80.0-100.0) fL MCH (25.0-34.0) pg MCHC (32.0-36.0) g/dL RDW Std Deviation (36.4-46.3) fL RDW Coeff of Samantha (11.5-14.5) % Plt Count (130-400) K/uL MPV (9.4-12.4) fL Immature Gran % (Auto) % Neut % (Auto) % Lymph % (Auto) % [place] % (Auto) % Eos % (Auto) % Baso % (Auto) % Neut # (Auto) (1.40-6.50) K/uL Lymph # (Auto) (1.2-3.4) K/uL [place] # (Auto) (0.11-0.59) K/uL Eos # (Auto) (0-0.50) K/uL Baso # (Auto) (0-0.2) K/uL Immature Gran # (Auto) (0.01-0.20) K/uL PT (9.0-12.0) Seconds INR (0.9-1.1) APTT (21.0-31.0) Seconds PTT Ratio Sodium (136-145) mmol/L Potassium (3.5-5.1) mmol/L Chloride (98-107) mmol/L Carbon Dioxide (21-32) mmol/L Anion Gap (3-11) BUN (6-23) mg/dl Creatinine (0.6-1.4) mg/dl Est Cr Clr Drug Dosing Est GFR ( Amer) ml/min Est GFR (Non-Af Amer) ml/min BUN/Creatinine Ratio (10-20) Glucose (70-99(Fasting)) mg/dl Lactate 1.3 (0.4-2.0) mmol/L Calcium (8.5-10.1) mg/dl Magnesium (1.7-2.4) mg/dl Total Bilirubin (0.2-1.0) mg/dl AST (13-39) U/L ALT (7-52) U/L Alkaline Phosphatase (34-104) U/L Troponin I High Sens (0-20) pg/ml Total Protein (6.0-8.3) gm/dl Albumin (3.4-5.0) gm/dl Globulin (2.5-4.0) gm/dl Albumin/Globulin Ratio (0.9-2) Procalcitonin < 0.05 (0-0.5) ng/ml SARS-CoV-2 (PCR) NEGATIVE (Negative) Influenza Type A (PCR) Negative (Neg) Influenza Type B (PCR) Negative (Neg) RSV (RT-PCR) Negative (Neg) Administered Medications Acetaminophen (Acetaminophen 325 Mg Tab) 650 mg PO Q4H PRN PRN Reason: Pain or Fever Stop: 09/20/22 22:03 Last Admin: 08/23/22 07:45 Dose: 650 mg Documented By: Admin: 08/23/22 02:57 Dose: 650 mg Documented By: RC Albuterol (Albut/Ipratrop 3mg/0.5mg Neb 3 Ml Vial) 3 ml INH Q6R AURELIO Stop: 09/21/22 00:59 Last Admin: 08/23/22 13:42 Dose: 3 ml Documented By: Admin: 08/23/22 07:06 Dose: 3 ml Documented By: Admin: 08/23/22 00:50 Dose: 3 ml Documented By: Admin: 08/22/22 19:59 Dose: 3 ml Documented By: Admin: 08/22/22 13:28 Dose: 3 ml Documented By: Admin: 08/22/22 07:18 Dose: 3 ml Documented By: Admin: 08/22/22 01:13 Dose: 3 ml Documented By: CAM Aspirin (Aspirin 81 Mg Ectab) 81 mg PO QAM AURELIO Stop: 09/21/22 08:59 Last Admin: 08/23/22 08:51 Dose: 81 mg Documented By: Admin: 08/22/22 08:44 Dose: 81 mg Documented By: UMA Benzonatate (Benzonatate 100 Mg Capsule) 100 mg PO TID PRN PRN Reason: Cough Stop: 09/21/22 12:05 Last Admin: 08/23/22 07:45 Dose: 100 mg Documented By: Admin: 08/22/22 20:31 Dose: 100 mg Documented By: Admin: 08/22/22 12:27 Dose: 100 mg Documented By: UMA Enoxaparin Sodium (Enoxaparin Inj 40 Mg/0.4 Ml Syr) 40 mg SQ HS [facility] Stop: 09/21/22 00:14 Last Admin: 08/22/22 20:31 Dose: 40 mg Documented By: Admin: 08/22/22 00:38 Dose: 40 mg Documented By: ISRAEL Fluticasone Propionate (Fluticasone Propionate Na Spr 16 Gm Btl) 2 sprays NA QAM AURELIO Stop: 09/21/22 08:59 Last Admin: 08/23/22 08:51 Dose: Not Given Documented By: Admin: 08/22/22 08:46 Dose: Not Given Documented By: UMA Fluticasone/Vilanterol (Fluticasone/Vilanterol 200/25mcg 14 Puffs/Inhaler) 1 puffs INH DAILY [facility] Stop: 09/21/22 08:59 Last Admin: 08/23/22 08:51 Dose: 1 puffs Documented By: Admin: 08/22/22 08:44 Dose: 1 puffs Documented By: UMA Guaifenesin (Guaifenesin 600 Mg Tabcr) 1,200 mg PO BID AURELIO Stop: 09/20/22 20:59 Last Admin: 08/23/22 08:51 Dose: 1,200 mg Documented By: Admin: 08/22/22 20:31 Dose: 1,200 mg Documented By: Admin: 08/22/22 08:45 Dose: 1,200 mg Documented By: Admin: 08/21/22 23:27 Dose: 1,200 mg Documented By: ISRAEL Azithromycin 500 mg/ Dextrose 255 mls @ 125 mls/hr IV Q24H [facility] Stop: 08/24/22 00:03 Last Infusion: 08/23/22 01:00 Dose: 0 mls/hr Documented By: Admin: 08/22/22 22:49 Dose: 125 mls/hr Documented By: Infusion: 08/22/22 01:30 Dose: 0 mls/hr Documented By: Admin: 08/21/22 23:26 Dose: 125 mls/hr Documented By: ISRAEL Insulin Aspart (Insulin Aspart Per Unit) 0 units SC ACHS [facility] Stop: 09/20/22 22:03 Last Admin: 08/23/22 12:04 Dose: Not Given Documented By: Admin: 08/23/22 07:40 Dose: Not Given Documented By: Admin: 08/22/22 20:29 Dose: Not Given Documented By: Admin: 08/22/22 17:12 Dose: 6 units Documented By: UMA Co-signed By: YANNI Admin: 08/22/22 11:51 Dose: 4 units Documented By: MUA Co-signed By: GRICELDA Admin: 08/22/22 08:43 Dose: 4 units Documented By: UMA Co-signed By: YANNI Admin: 08/21/22 22:40 Dose: Not Given Documented By: ISRAEL Levothyroxine Sodium (Levothyroxine Sodium 88 Mcg Tablet) 88 mcg PO DAILYBB [facility] Stop: 09/21/22 06:29 Last Admin: 08/23/22 05:35 Dose: 88 mcg Documented By: Admin: 08/22/22 05:12 Dose: 88 mcg Documented By: ISRAEL Miscellaneous (Carbohydrates For Hypoglycemia ) 15 - 30 gm PO UD PRN PRN Reason: Hypoglycemia Protocol Stop: 09/20/22 22:03 Last Admin: 08/23/22 07:44 Dose: 30 gm Documented By: YANNI Phenol (Chloraseptic 1.4% Soln 180 Ml Btl) 1 sprays MT Q2H PRN PRN Reason: Sore Throat Stop: 09/21/22 10:40 Last Admin: 08/22/22 11:22 Dose: 1 sprays Documented By: UMA Prednisone (Prednisone 20 Mg Tab) 40 mg PO QAM [facility] Stop: 08/27/22 08:59 Last Admin: 08/23/22 08:51 Dose: 40 mg Documented By: Admin: 08/22/22 08:45 Dose: 40 mg Documented By: UMA Umeclidinium [place] (Umeclidinium [place] 62.5mcg/Blister 7 Puffs/Inhaler) 1 puffs INH DAILY [facility] Stop: 09/21/22 08:59 Last Admin: 08/23/22 08:50 Dose: 1 puffs Documented By: Admin: 08/22/22 08:45 Dose: 1 puffs Documented By: UMA Discontinued Medications Albuterol (Albut/Ipratrop 3mg/0.5mg Neb 3 Ml Vial) 6 ml NEB NOW STA; Protocol Stop: 08/21/22 19:34 Last Admin: 08/21/22 19:49 Dose: 6 ml Documented By: SHELLY Guaifenesin/Dextromethorphan (Guaifenesin/Dextrom Syrup 100mg/10mg 5ml Udc) 5 ml PO NOW ONE Stop: 08/23/22 03:08 Last Admin: 08/23/22 05:35 Dose: 5 ml Documented By: MIGUEL Sodium Chloride (Nss 1000ml) 1,000 mls @ 999 mls/hr IV .Q1H1M ONE Stop: 08/21/22 20:33 Last Infusion: 08/21/22 20:53 Dose: 0 mls/hr Documented By: Admin: 08/21/22 19:42 Dose: 999 mls/hr Documented By: Acetaminophen (Ofirmev) 1,000 mg in 100 mls @ 400 mls/hr IV NOW STA Stop: 08/21/22 19:47 Last Infusion: 08/21/22 19:59 Dose: 0 mls/hr Documented By: Admin: 08/21/22 19:44 Dose: 400 mls/hr Documented By: Magnesium Sulfate/Dextrose (Magnesium Sulfate / D5w) 1 gm in 100 mls @ 100 mls/hr IV NOW STA Stop: 08/21/22 20:35 Last Infusion: 08/21/22 20:52 Dose: 0 mls/hr Documented By: Admin: 08/21/22 19:50 Dose: 100 mls/hr Documented By: Insulin Glargine (Lantus Per Unit Charge) 8 units SQ BID A[facility]LIO Stop: 09/20/22 22:03 Last Admin: 08/23/22 08:03 Dose: Not Given Documented By: Admin: 08/22/22 20:36 Dose: 8 units Documented By: MIGUEL Co-signed By: GIAN Admin: 08/22/22 08:44 Dose: 8 units Documented By: UMA Co-signed By: YANNI Admin: 08/21/22 23:27 Dose: 8 units Documented By: ISRAEL Co-signed By: KRISTINA Methylprednisolone (Methylprednisolone 125 Mg/2 Ml Vial) 125 mg IV NOW STA Stop: 08/21/22 19:34 Last Admin: 08/21/22 19:50 Dose: 125 mg Documented By: Miscellaneous (Patient's Height &/Or Weight Needed) 1 each N/A Q2H [facility] Stop: 08/22/22 02:00 Last Admin: 08/21/22 23:28 Dose: 1 each Documented By: ISRAEL Imaging Data Radiologist's Impression: Chest X-Ray 08/21/22 18:36 XR chest 1V portable CLINICAL HISTORY: Sepsis COMPARISON STUDY: Chest radiograph and chest CT May 15, 2022. FINDINGS: Lung hyperexpansion with underlying emphysema. No pneumothorax or pleural effusion is present. There is no evidence for pulmonary edema. Cardiac size is normal. Mediastinal contours are normal. Interstitial thickening is slightly greater within the right lung. No consolidation is identified. IMPRESSION: 1. Mild reticulonodular interstitial thickening within the right lung. This is likely chronic however a mild infectious process cannot be excluded. No consolidation identified. 2. Emphysema. ACT 112: Negative or not required by law. Electronically signed by: Tirso Moreno M.D. 08/21/2022 7:07 PM Discharge Plan Visit Data Chief Complaint: Shortness of Breath/Dyspnea Stated Complaint: LOW OXYGEN,SOB,WEAKNESS ED Provider: Baldomero Soto Discharge Problem: COPD exacerbation, Hypoxia, Dyspnea, Tobacco use disorder Patient Disposition: Admitted As Inpatient Discharge Instructions Interventions: ED Discharge Assessment Last Done: 08/21/22 21:30
[2022-08-21 19:31] LABS: INR 1.1 (0.9-1.1); Partial Thromboplastin Time 28.8 Seconds (21.0-31.0); Prothrombin Time 11.3 Seconds (9.0-12.0)
[2022-08-21] MEDS ORDERED: methylPREDNISolone 125 MG/2 ML VIAL IV STA (19:33)
[2022-08-21] MEDS ORDERED: ALBUT/IPRATROP 3MG/0.5MG NEB 3 ML VIAL NEB STA (19:33)
[2022-08-21] MEDS ORDERED: SODIUM CHLORIDE 0.9% 1000ML 1,000 ML IV ONE (19:33)
[2022-08-21] MEDS ORDERED: ACETAMINOPHEN 1,000 MG/100 ML VIAL IV STA (19:33)
[2022-08-21] MEDS ORDERED: MAGNESIUM SULFATE / D5W 1 GM/100 ML BAG IV STA (19:36)
--- NOTE | 2022-08-21 20:13 | History & Physical Report ---
Date of Service August 21, 2022 Assessment & Plan (1) COPD exacerbation: Plan: Patient is an 81-year-old male with a past medical history of severe COPD, hypothyroidism, severe protein calorie malnutrition, and hyperlipidemia who presents to the ED for 3 to 4-day history of worsening shortness of breath. History and physical exam consistent with COPD exacerbation. Patient has been given DuoNeb, started on azithromycin, and first dose of steroids given. Vickie lemon is hemodynamically stable and appears overall well. -Admit to [facility] with telemetry -Started on azithromycin for 3-day course of 500 mg daily, 40 mg of prednisone or equivalent for 5 days, DuoNebs every 4 hours scheduled for now which can change to as needed with progression -Flutter valve, incentive spirometry ordered -Mucinex ordered -COVID-negative -Does not appear to be an infectious process at this time given negative procalcitonin and unchanged chest x-ray from May -If symptoms were to worsen, consider repeat chest x-ray for evaluation for pneumonia -Unsure as to trigger for COPD exacerbation as patient has been taking his medications well without difficulty -Could be due to mild upper respiratory infection. (2) Severe protein-calorie malnutrition: Plan: - Consult dietitian, appreciate recommendations will likely need supplementation (3) Hypothyroidism: Plan: - Continue levothyroxine, most recent TSH within normal limits (4) Type 2 diabetes mellitus without complication: Plan: - Hold home DM 2 medications, switch to Lantus 8 units twice daily with sliding scale (5) Hyperlipidemia: Plan: - Continue statin Plan Disposition: Admit to [facility] with telemetry for COPD exacerbation Diet: Diet carb consistent, heart healthy DVT prophylaxis: Lovenox CODE STATUS: DNR/DNI, discussed with patient History of Present Illness Chief Complaint: Shortness of breath Primary Care Provider: Kimberlee Syed MD Patient is an 81-year-old male with a past medical history of severe COPD, hypothyroidism, severe protein calorie malnutrition, and hyperlipidemia who presents to the ED for 3 to 4-day history of worsening shortness of breath. Patient reports over the past few days he has had increasing shortness of breath with sputum production that is white and najera in color. Not sure that is actually getting worse but is certainly productive. He has had multiple visits in the past year with COPD exacerbation and pneumonia. Denies any chest pain with his shortness of breath. Eating and drinking has been at baseline without any nausea or vomiting. No history of CAD, stroke, [place], or congestive heart failure. He does report that he is on 2 L nasal cannula at home which has not been sufficient. Patient lives at home without much ambulation and no one really seems to check on him per his history. No pets or family. Denies any recent falls or passing out. Patient used to be a pack per day smoker for 60 years but quit smoking 2 weeks ago. No other complaints at this time ED course: White blood cell count mildly elevated at 11.5. Procalcitonin negative. Otherwise remaining labs within normal limits. Last A1c 7.5. Chest x-ray showed mild reticulonodular interstitial thickening within the right lung which is likely chronic however mild infectious process cannot be excluded. There is also emphysema noted. Patient suspected to have COPD exacerbation and was given DuoNeb, first dose of azithromycin, and methylprednisone. Hospitalist team was then consulted for admission to the hospital Allergies Allergy/AdvReac Type Severity Reaction Status Date / Time No Known Allergies Allergy Mild Verified 08/21/22 20:44 Home Medications Medication Instructions Recorded Confirmed Type aspirin 81 mg tablet,delayed 81 mg PO QAM 05/14/21 08/21/22 History release metformin 1,000 mg tablet,extended 1,000 mg PO BID #180 tabs 08/12/21 08/21/22 Rx release 24hr guaifenesin 600 mg tablet, 600 mg PO Q12H #60 tabs 09/27/21 08/21/22 Rx extended release 12 hr (Mucinex) fluticasone propionate 50 2 spray NA QAM 10/09/21 08/21/22 History mcg/actuation nasal spray,suspension pen needle, diabetic 32 gauge x #100 ea 10/21/21 05/26/22 Rx 1/4" (Novofine 32) levothyroxine 88 mcg tablet 88 mcg PO QAM #90 tabs 12/03/21 08/21/22 Rx albuterol sulfate 90 mcg/actuation 2 inh inhalation QID PRN shortness 04/09/22 08/21/22 Rx aerosol inhaler of breath or wheezing #18 grams diclofenac sodium 1 % topical gel 4 g EXT QID PRN neck pain, joint 05/06/22 08/21/22 Rx (Voltaren Arthritis Pain) pain #1 tube Oxygen Home #1 ea 05/19/22 05/26/22 Rx prednisone 10 mg tablet 10 mg PO .daily as directed #30 05/19/22 08/21/22 Rx tabs atorvastatin 20 mg tablet 20 mg PO QAM #90 tabs 07/21/22 08/21/22 Rx empagliflozin 25 mg tablet 25 mg PO QAM #90 tabs 07/21/22 08/21/22 Rx blood sugar diagnostic (OneTouch #200 ea 07/22/22 Rx Ultra Test strips) ipratropium 0.5 mg-albuterol 3 mg 3 ml inhalation Q4H PRN shortness 07/22/22 08/21/22 Rx (2.5 mg base)/3 mL nebulization of breath or wheezing #180 vials soln tiotropium bromide 2.5 2 puff inhalation DAILY #3 Inhalers 07/22/22 08/21/22 Rx mcg/actuation mist for inhalation (Spiriva Respimat) mometasone-formoterol HFA 200 2 puff inhalation BID #13 grams 07/23/22 08/21/22 Rx mcg-5 mcg/actuation aerosol inhaler (Dulera) Past Med/Surg History Medical History Abnormal chest CT Acquired deviated nasal septum Actinic keratosis Chronic diarrhea Chronic gout COPD (chronic obstructive pulmonary disease) case management patient COPD exacerbation COPD exacerbation COPD with emphysema inhalers daily/prn, nebulizer prn Frequent PVCs Hyperlipidemia Hypersomnolence Hypertension Hypothyroidism Incidental lung nodule, > 3mm and < 8mm Neck pain Pneumonia Pneumonia Recent unintentional weight loss over several months Severe protein-calorie malnutrition Tobacco abuse Tobacco use Type 2 diabetes mellitus without complication Surgical History History of appendectomy History of bilateral cataract extraction History of colonoscopy last 2018 History of Mohs micrographic surgery for skin cancer x3 History of tonsillectomy History of wisdom tooth extraction Hx of vasectomy Family History Other No family history of adverse response to anesthesia Denies family history of Ovarian cancer Prostate cancer Myocardial infarction Breast cancer Colorectal cancer Social History Smoking Status: Former smoker Tobacco Type: Cigarettes Cigarettes Per Day: 5 cigs a week; Second Hand Exposure: No; Hx Alcohol Use: No Hx Substance Use: No Preferred Language: Yemeni Communication Ability: Effective Visual Impairment: No Limitations Hearing Ability: Normal Pharmacy Services Representative Required: No Beliefs That Will Affect Care: None marital status: Single Current Living Situation: Alone current occupational status: retired How many Children do You have: 1 Other Information That Helps Us Care for You: No Feels Safe at Home: Yes Safety Concerns: Feels Safe At This Time Dental Care, Regularly: Yes Physical Activity Frequency: 1-2 Times per Week Seatbelt Use: always Sunscreen Use: No Assistive Devices: Oxygen - Continuous Review of Systems Review of Systems: All systems reviewed & are unremarkable except as noted in HPI & below Physical Exam Constitutional: well developed, + frail appearing and cooperative Eyes: + anicteric sclerae Neck: trachea midline, no thyromegaly Respiratory: normal respiratory effort Auscultation: + wheezes and + bronchial breath sounds Cardiovascular: RRR, no murmur, no edema Gastrointestinal (Abdomen): normal bowel sounds, soft, nontender, no hepatosplenomegaly Musculoskeletal: Head/Neck/Chest: normocephalic and head atraumatic Skin: no rashes, warm and dry Neurologic: moves all extremities Psychiatric: A+Ox3, euthymic affect Lymphatic: no cervical or axillary lymphadenopathy Results & Data Results & Data Vital Signs (Past 12 Hours) Vital Signs Temp Pulse Pulse Resp BP BP Pulse Ox 08/21/22 19:49 84 08/21/22 19:35 80 20 95 08/21/22 19:35 08/21/22 19:29 92 H 22 128/77 97 08/21/22 18:30 37.8 C H 101 H 24 151/77 H 89 L O2 Del Method O2 Flow Rate 08/21/22 19:49 08/21/22 19:35 Nasal Cannula 4 08/21/22 19:35 Nasal Cannula 4 08/21/22 19:29 Nasal Cannula 4 08/21/22 18:30 Room Air Supervising Physician Co-Signing Physician Notes Attending addendum: I have physically seen this patient, have supervised the medical residents activities, and agree with the H&P unless as otherwise noted. Assessment and Plan: COPD exacerbation- Patient is COVID-19 negative Methylprednisolone 40 mg IV every 8 hours Duonebs every 4 hours while awake and every 2 hours when necessary. Guaifenesin extended release 12 mg p.o. twice daily Azithromycin 5 mg p.o. daily for 3 days Nasal cannula oxygen, titrate to keep pulse ox around 92% Incentive spirometry Severe protein calorie malnutrition- Consult dietitian Diabetes mellitus- Holding metformin Continue Jardiance Placed on Lantus and sliding scale as noted Hypothyroidism- Continue levothyroxine 80 mcg daily Hyperlipidemia- Continue atorvastatin 20 mg daily Check a fasting lipid panel Remaining orders and notations as noted
[2022-08-21 20:27] LABS: Influenza A virus by PCR Negative (Neg); Influenza B virus by PCR Negative (Neg); RSV by PCR Negative (Neg); SARS CoV2 RNA(COVID-19) Ceph NEGATIVE (Negative)
[2022-08-21] MEDS ORDERED: AZITHROMYCIN 500 MG in DEXTROSE 5% 250 ML IV STA (21:54)
[2022-08-21] MEDS ORDERED: CARBOHYDRATES FOR HYPOGLYCEMIA PO PRN (22:04)
[2022-08-21] MEDS ORDERED: DICLOFENAC SOD 1% GEL 100 GM TUBE EXT PRN (22:04)
[2022-08-21] MEDS ORDERED: ONDANSETRON INJ 2 MG/ML 2 ML VIAL IV PRN (22:04)
[2022-08-21] MEDS ORDERED: GLUCAGON FOR INJ 1 MG VIAL SQ PRN (22:04)
[2022-08-21] MEDS ORDERED: POLYETHYLENE (MIRALAX) 17 GM PACK PO PRN (22:04)
[2022-08-21] MEDS ORDERED: GLUCOSE 40% GEL 15 GM TUBE PO PRN (22:04)
[2022-08-21] MEDS ORDERED: GLUCOSE 10 TAB/TUBE PO PRN (22:04)
[2022-08-21] MEDS ORDERED: DEXTROSE 50% 50 ML SYRINGE IV PRN (22:04)
[2022-08-21] MEDS: INSULIN ASPART PER UNIT CHARGE SC SCH (22:40)
[2022-08-21] MEDS ORDERED: Patient's HEIGHT &/or WEIGHT Needed SCH (22:45)
[2022-08-21] MEDS: AZITHROMYCIN 500 MG in DEXTROSE 5% 250 ML IV SCH (23:26)
[2022-08-21] MEDS: LANTUS PER UNIT CHARGE SQ SCH (23:27)
[2022-08-21] MEDS: guaiFENesin 600 MG TABCR PO SCH (23:27)
[2022-08-22] MEDS: ENOXAPARIN INJ 40 MG/0.4 ML SYR SQ SCH ×2 (00:38→20:31)
[2022-08-22] MEDS: ALBUT/IPRATROP 3MG/0.5MG NEB 3 ML VIAL INH SCH ×4 (01:13→19:59)
[2022-08-22 01:38] LABS: Appearance Urine Clear (Clear); Bacteria Urine Automated Negative (Negative); Bilirubin Urine Negative (Negative); Blood Urine Negative (Negative); Cast Urine Automated 0 /lpf (0-5); Color Urine Yellow; Glucose Urine UA 3+ (Negative); Ketones Urine 2+ (Negative); Leukocyte Esterase Urine Negative (Negative); Nitrite Urine Negative (Negative); Protein Urine 1+ (Negative); RBC Urine Automated 0-4 /hpf (0-4); Specific Gravity Urine 1.029 (1.000-1.030); Urobilinogen Urine Negative (Negative)
[2022-08-22] MEDS: LEVOTHYROXINE SODIUM 88 MCG TABLET PO SCH (05:12)
[2022-08-22 08:23] LABS: Hematocrit (blood only) 47.1 % (42.0-52.0); Hemoglobin 15.5 g/dl (14.0-18.0); Mean Corpuscular Hemoglobin 29.9 pg (25.0-34.0); Mean Corpuscular Hgb Conc 32.9 g/dL (32.0-36.0); Mean Corpuscular Volume 90.9 fL (80.0-100.0); Mean Platelet Volume 10.4 fL (9.4-12.4); Platelet Count 238 K/uL (130-400); RDW Coefficient of Variation 12.9 % (11.5-14.5); RDW Standard Deviation 43.6 fL (36.4-46.3); Red Blood Count 5.18 M/uL (4.70-6.10); White Blood Count 8.34 K/ul (4.8-10.8)
[2022-08-22] MEDS: INSULIN ASPART PER UNIT CHARGE SC SCH ×4 (08:43→20:29)
[2022-08-22] MEDS: ASPIRIN 81 MG ECTAB PO SCH (08:44)
[2022-08-22] MEDS: LANTUS PER UNIT CHARGE SQ SCH ×2 (08:44→20:36)
[2022-08-22] MEDS: FLUTICASONE/VILANTEROL 200/25MCG 14 PUFFS/INHALER INH SCH (08:44)
[2022-08-22] MEDS: UMECLIDINIUM BROMIDE 62.5MCG/BLISTER 7 PUFFS/INHALER INH SCH (08:45)
[2022-08-22] MEDS: predniSONE 20 MG TAB PO SCH (08:45)
[2022-08-22] MEDS: guaiFENesin 600 MG TABCR PO SCH ×2 (08:45→20:31)
[2022-08-22] MEDS: FLUTICASONE PROPIONATE NA SPR 16 GM BTL SCH (08:46)
[2022-08-22 08:52] LABS: BUN Creatinine Ratio 33.9 (10-20); Calcium 8.8 mg/dl (8.5-10.1); Creatinine Clr Calc Pharmacy 85.8 ml/min; Est GFR (African American) 108.6 ml/min; Est GFR (Non-African American) 93.7 ml/min; Magnesium 2.1 mg/dl (1.7-2.4); Potassium 4.2 mmol/L (3.5-5.1)
[2022-08-22] MEDS ORDERED: CHLORASEPTIC 1.4% SOLN 180 ML BTL MT PRN (10:41)
--- NOTE | 2022-08-22 12:06 | Hospitalist Progress Note ---
Date of Service August 22, 2022 Assessment & Plan (1) COPD exacerbation: Plan: Patient is an 81-year-old male with a past medical history of severe COPD, hypothyroidism and hyperlipidemia who presents to the ED for 3 to 4-day history of worsening shortness of breath. History and physical exam consistent with COPD exacerbation. Patient has been given DuoNeb, started on azithromycin, and first dose of steroids given. Patient is hemodynamically stable and appears o verall well. -Admitted to [facility] [place] with telemetry -Started on azithromycin for 3-day course of 500 mg daily, 40 mg of prednisone or equivalent for 5 days, DuoNebs every 4 hours scheduled for now which can change to as needed with progression -Continue Breo Ellipta and Incruse Ellipta -Flutter valve, incentive spirometry ordered -Mucinex ordered -Added Chloraseptic spray and Tessalon Perles as needed -Influenza, RSV and COVID-negative -If symptoms were to worsen, consider repeat chest x-ray for evaluation for pneumonia -Could be due to mild upper respiratory infection. -Anticipate discharge in the next 24-48 hours (2) Tobacco abuse: Plan: - Patient states he finally quit smoking 17 days ago after 60 years of smoking daily - Patient denies needing nicotine patch (3) Hypothyroidism: Plan: - Continue Levothyroxine 88 mcg daily - TSH 1.179 (4) Hyperlipidemia: Plan: - Resume Atorvastatin upon discharge (5) Type 2 diabetes mellitus without complication: Plan: - Last HgbA1C 7.5 - Continue Lantus 8Units BID with ISS Plan DVT: Lovenox 40mg SQ Encourage up and OOB Admission and Anticipated Discharge Date Admission Date: August 21, 2022 Subjective Patient is awake laying in bed. He states he feels slightly better today compared to yesterday. C/O sore throat this AM and also asking for something for a cough. Review of Systems Review of Systems: Denies chest pain, fever, chills, abdominal pain, nausea, vomiting or diarrhea. Admits to cough, congestion, SOB and sore throat All oher ROS negative unless stated + above Physical Exam Constitutional: WD/WN, vitals as above ENMT: oropharynx moist mild erythema Neck: trachea midline, no thyromegaly shotty tonsillar lymph nodes Respiratory: normal respiratory effort and + cough coughs with extending talking mild end expiratory wheezes and bronchial breath sounds Cardiovascular: Rate/Rhythm: regular rate and regular rhythm Extremities: no calf tenderness, no pedal edema and no edema Gastrointestinal (Abdomen): normal bowel sounds, soft, nontender, no hepatosplenomegaly Psychiatric: A+Ox3, euthymic affect Results & Data Results & Data Vital Signs (Past 12 Hours) Vital Signs Temp Pulse Pulse Resp BP Pulse Ox O2 Del Method 08/22/22 11:39 36.4 C L 73 20 107/58 L 93 Room Air 08/22/22 08:50 Nasal Cannula 08/22/22 07:33 36.5 C 67 18 124/76 94 Nasal Cannula 08/22/22 07:33 72 18 96 Nasal Cannula 08/22/22 07:18 57 L 08/22/22 03:01 36.4 C L 66 18 101/64 94 Nasal Cannula 08/22/22 01:14 70 18 95 Nasal Cannula 08/22/22 00:00 79 O2 Flow Rate 08/22/22 11:39 08/22/22 08:50 3 08/22/22 07:33 3.5 08/22/22 07:33 3.5 08/22/22 07:18 08/22/22 03:01 4 08/22/22 01:14 4 08/22/22 00:00 Laboratory Results Abnormal lab results 08/21/22 08/21/22 08/21/22 Range/Units 18:44 18:44 21:47 WBC 11.47 H (4.8-10.8) K/ul Neut # (Auto) 9.40 H (1.40-6.50) K/uL Lymph # (Auto) 0.63 L (1.2-3.4) K/uL Brewster # (Auto) 1.31 H (0.11-0.59) K/uL BUN/Creatinine Ratio 25.7 H (10-20) Glucose 117 H (70-99(Fasting)) mg/dl POC Glucose 132 H (70-99) mg/dl Urine Protein (Negative) Urine Glucose (UA) (Negative) Urine Ketones (Negative) U Epithel Cells (Auto) (0-5) /lpf 08/22/22 08/22/22 08/22/22 Range/Units 01:22 07:24 07:31 WBC (4.8-10.8) K/ul Neut # (Auto) (1.40-6.50) K/uL Lymph # (Auto) (1.2-3.4) K/uL Brewster # (Auto) (0.11-0.59) K/uL BUN/Creatinine Ratio 33.9 H (10-20) Glucose 139 H (70-99(Fasting)) mg/dl POC Glucose 124 H (70-99) mg/dl Urine Protein 1+ H (Negative) Urine Glucose (UA) 3+ H (Negative) Urine Ketones 2+ H (Negative) U Epithel Cells (Auto) 5-10 H (0-5) /lpf 08/22/22 Range/Units 11:15 WBC (4.8-10.8) K/ul Neut # (Auto) (1.40-6.50) K/uL Lymph # (Auto) (1.2-3.4) K/uL Brewster # (Auto) (0.11-0.59) K/uL BUN/Creatinine Ratio (10-20) Glucose (70-99(Fasting)) mg/dl POC Glucose 162 H (70-99) mg/dl Urine Protein (Negative) Urine Glucose (UA) (Negative) Urine Ketones (Negative) U Epithel Cells (Auto) (0-5) /lpf Diagnostic Findings Chest X-Ray 08/21/22 18:36 XR chest 1V portable CLINICAL HISTORY: Sepsis COMPARISON STUDY: Chest radiograph and chest CT May 15, 2022. FINDINGS: Lung hyperexpansion with underlying emphysema. No pneumothorax or pleural effusion is present. There is no evidence for pulmonary edema. Cardiac size is normal. Mediastinal contours are normal. Interstitial thickening is slightly greater within the right lung. No consolidation is identified. IMPRESSION: 1. Mild reticulonodular interstitial thickening within the right lung. This is likely chronic however a mild infectious process cannot be excluded. No consolidation identified. 2. Emphysema. ACT 112: Negative or not required by law. Electronically signed by: Tirso Moreno M.D. 08/21/2022 7:07 PM PG Care Time/CCT Total # of Minutes Spent Total Time Spent with Patient: Total time spent is greater than 50% in coordination of care (as documented) at patient's floor/unit and/or counseling patient: Coding Level of Care Code 39163 SUB INP/OBS CARE 2/35MIN Diagnoses COPD exacerbation J44.1 Tobacco abuse Z72.0 Hypothyroidism E03.9 Hyperlipidemia E78.5 Type 2 diabetes mellitus without complication E11.9
[2022-08-22] MEDS: BENZONATATE 100 MG CAPSULE PO PRN ×2 (12:27→20:31)
[2022-08-22] MEDS: AZITHROMYCIN 500 MG in DEXTROSE 5% 250 ML IV SCH (22:49)
[2022-08-23] MEDS: ALBUT/IPRATROP 3MG/0.5MG NEB 3 ML VIAL INH SCH ×4 (00:50→20:37)
--- NOTE | 2022-08-23 01:48 | Electrocardiogram Report ---
Test Reason : Blood Pressure : / mmHG Vent. Rate : 096 BPM Atrial Rate : 096 BPM P-R Int : 224 ms QRS Dur : 088 ms QT Int : 342 ms P-R-T Axes : 093 077 056 degrees QTc Int : 432 ms Poor data quality, interpretation may be adversely affected Sinus rhythm with 1st degree A-V block Otherwise normal ECG When compared with ECG of 15-MAY-2022 11:39, Vent. rate has increased BY 34 BPM Confirmed by Josh Malagon ([id number]) on 08/23/2022 1:48:07 AM Referred By: REFERRED SELF Confirmed By:Josh Malagon
[2022-08-23] MEDS: ACETAMINOPHEN 325 MG TAB PO PRN ×2 (02:57→07:45)
[2022-08-23] MEDS ORDERED: guaiFENesin/DEXTROM SYRUP 100MG/10MG 5ML UDC PO ONE (03:07)
[2022-08-23] MEDS ORDERED: UMECLIDINIUM BROMIDE 62.5MCG/BLISTER 7 PUFFS/INHALER INH PRN (04:19)
[2022-08-23] MEDS: LEVOTHYROXINE SODIUM 88 MCG TABLET PO SCH (05:35)
--- NOTE | 2022-08-23 07:09 | Hospitalist Progress Note ---
Date of Service August 23, 2022 Assessment & Plan (1) COPD exacerbation: Plan: Patient is an 81-year-old male with a past medical history of severe COPD, hypothyroidism and hyperlipidemia who presents to the ED for 3 to 4-day history of worsening shortness of breath. History and physical exam consistent with COPD exacerbation. Patient has been given DuoNeb, started on azithromycin, and first dose of steroids given. Patient is hemodynamically stable and appears o verall well. -Acute on chronic respiratrory failure with hypoxia, moderate risk pneumonia not confirmed on CXR -azithromycin prednisone DuoNebs -Continue Breo Ellipta and Incruse Ellipta -Flutter valve, incentive spirometry ordered -Mucinex ordered -Added Chloraseptic spray and Tessalon Perles as needed -Influenza, RSV and COVID-negative (2) Diplopia: Plan: acute self limited PT had some double vision overnight, negative head CT scan, hypoglycemia in am stopped lantus currently is on lantus Unclear whether this would be a TIA consideration could be for 21-day overlap of aspirin and Plavix and then transition to Plavix therapy certainly has risk factors (3) Tobacco abuse: Plan: chronic self limited Patient states he finally quit smoking 17 days ago after 60 years of smoking daily - Patient denies needing nicotine patch (4) Hypothyroidism: Plan: - chronic and stable Continue Levothyroxine 88 mcg daily - TSH 1.179 (5) Hyperlipidemia: Plan: - Resume Atorvastatin upon discharge (6) Type 2 diabetes mellitus without complication: Plan: -Chronic stable Last HgbA1C 7.5 - ISS Plan DVT: Lovenox 40mg SQ Encourage up and OOB Admission and Anticipated Discharge Date Admission Date: August 21, 2022 Subjective Patient in event overnight where he was confused and found in the bathroom. Stated he had some diplopia and was unable to move his arms as he wished. He was sent for emergent CT scan of the head which was unremarkable and he had no evidence of injury. He is back to his baseline this morning. He did have some hypoglycemia this morning. The patient's nurse states that he did have glucose checked during the events in the early head start director hours and his glucose was not low however the patient states he was altered for a period of time prior to the nurses discovering it. Currently is back to his baseline remains short of breath Physical Exam Physical Exam: Alert and oriented x3 no focal neurological deficits no bruises or injuries could be seen. His lungs have poor air movement prolonged expiratory phase and coarse breath sounds with end expiratory wheezing Results & Data Results & Data Vital Signs (Past 12 Hours) Vital Signs Temp Pulse Pulse Resp BP Pulse Ox O2 Del Method 08/22/22 22:51 102 H 08/23/22 02:52 100.4 F H 92 H 20 129/75 92 Nasal Cannula 08/23/22 01:22 99.0 F 105 H 20 107/68 95 Nasal Cannula 08/23/22 00:50 91 H 22 95 Nasal Cannula 08/22/22 20:00 Nasal Cannula 08/22/22 22:20 119 H 24 146/69 H 90 Nasal Cannula 08/22/22 20:01 91 H 28 H 91 Nasal Cannula 08/22/22 19:21 98.2 F 76 18 112/74 94 Nasal Cannula O2 Flow Rate 08/22/22 22:51 08/23/22 02:52 4 08/23/22 01:22 4 08/23/22 00:50 6 08/22/22 20:00 3 08/22/22 22:20 6 08/22/22 20:01 3 08/22/22 19:21 2 PG Care Time/CCT Total # of Minutes Spent Total Time Spent with Patient: Total time spent is greater than 50% in coordination of care (as documented) at patient's floor/unit and/or counseling patient: Coding Level of Care Code 55906 SUB INP/OBS CARE 3/50MIN Diagnoses COPD exacerbation J44.1 Diplopia H53.2 Tobacco abuse Z72.0 Hypothyroidism E03.9 Hyperlipidemia E78.5 Type 2 diabetes mellitus without complication E11.9
--- NOTE | 2022-08-23 07:32 | CT Scan Report ---
CT OF THE HEAD WITHOUT CONTRAST CLINICAL HISTORY: fall COMPARISON STUDY: Head CT September 18, 2010. CT DOSE: 767.83 mGy.cm TECHNIQUE: Helical axial images of the head were obtained without IV contrast. Automated exposure con trol was utilized for the study. A dose lowering technique was utilized adhering to the principles o f ALARA. FINDINGS: No acute intracranial hemorrhage, midline shift or mass effect is present. White matter hyp odensity suggests small vessel disease. 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 The ventric ular system is unremarkable. The basal cisterns are patent. No extra-axial collections are present. T here are no findings to suggest acute dural sinus thrombosis or acute territorial infarct. There is n o acute calvarial fracture. IMPRESSION: 1. No acute intracranial findings. 2. No calvarial fracture. ACT 112: Negative or not required by law. Electronically signed by: Tirso Moreno M.D. 08/23/2022 7:30 AM
[2022-08-23] MEDS: INSULIN ASPART PER UNIT CHARGE SC SCH ×4 (07:40→21:47)
[2022-08-23] MEDS: BENZONATATE 100 MG CAPSULE PO PRN (07:45)
[2022-08-23] MEDS: LANTUS PER UNIT CHARGE SQ SCH (08:03)
[2022-08-23] MEDS: UMECLIDINIUM BROMIDE 62.5MCG/BLISTER 7 PUFFS/INHALER INH SCH (08:50)
[2022-08-23] MEDS: ASPIRIN 81 MG ECTAB PO SCH (08:51)
[2022-08-23] MEDS: FLUTICASONE PROPIONATE NA SPR 16 GM BTL SCH (08:51)
[2022-08-23] MEDS: FLUTICASONE/VILANTEROL 200/25MCG 14 PUFFS/INHALER INH SCH (08:51)
[2022-08-23] MEDS: predniSONE 20 MG TAB PO SCH (08:51)
[2022-08-23] MEDS: guaiFENesin 600 MG TABCR PO SCH ×2 (08:51→21:47)
[2022-08-23] MEDS ORDERED: CLOPIDOGREL BISULFATE 75 MG TAB PO ONE (14:01)
--- NOTE | 2022-08-23 19:43 | Billing Data ---
Date of Service August 23, 2022 Coding Level of Care Code 82068 INT INP/OBS CARE
[2022-08-23] MEDS: ENOXAPARIN INJ 40 MG/0.4 ML SYR SQ SCH (21:46)
[2022-08-23] MEDS: AZITHROMYCIN 500 MG in DEXTROSE 5% 250 ML IV SCH (21:49)
[2022-08-24] MEDS: ALBUT/IPRATROP 3MG/0.5MG NEB 3 ML VIAL INH SCH ×4 (01:04→19:17)
[2022-08-24] MEDS: LEVOTHYROXINE SODIUM 88 MCG TABLET PO SCH (05:55)
[2022-08-24] MEDS: INSULIN ASPART PER UNIT CHARGE SC SCH ×4 (08:36→21:27)
[2022-08-24] MEDS: FLUTICASONE/VILANTEROL 200/25MCG 14 PUFFS/INHALER INH SCH (08:37)
[2022-08-24] MEDS: CLOPIDOGREL BISULFATE 75 MG TAB PO SCH (08:37)
[2022-08-24] MEDS: UMECLIDINIUM BROMIDE 62.5MCG/BLISTER 7 PUFFS/INHALER INH SCH (08:37)
[2022-08-24] MEDS: predniSONE 20 MG TAB PO SCH (08:38)
[2022-08-24] MEDS: ASPIRIN 81 MG ECTAB PO SCH (08:38)
[2022-08-24] MEDS: FLUTICASONE PROPIONATE NA SPR 16 GM BTL SCH (08:38)
[2022-08-24] MEDS: guaiFENesin 600 MG TABCR PO SCH ×2 (08:38→21:29)
--- NOTE | 2022-08-24 12:45 | Hospitalist Progress Note ---
Date of Service August 24, 2022 Assessment & Plan (1) COPD exacerbation: Plan: Acute on Chronic respiratory failure, high risk Worsened 08/24 will return to solumedrol -azithromycin , DuoNebs every 4 hours , add fomoterol neb -Flutter valve, incentive spirometry ordered -Mucinex ordered -COVID-negative (2) Severe protein-calorie malnutrition: Plan: acute on chronic moderate risk- Consult dietitian, appreciate recommendations will likely need supplementation (3) Hypothyroidism: Plan: - Chronic stable Continue levothyroxine, most recent TSH within normal limits (4) Type 2 diabetes mellitus without complication: Plan: -Chronic stable but now influenced by steroids is unstable, Hold home DM 2 medications, switch to Lantus 8 units twice daily with sliding scale (5) Hyperlipidemia: Plan: - chronic stable Continue statin Plan DVT prophylaxis: Lovenox CODE STATUS: DNR/DNI, discussed with patient Admission and Anticipated Discharge Date Admission Date: August 21, 2022 Subjective Patient had uneventful evening. He has had no recurrence of confusion or diplopia or difficulty with moving his limbs. He however feels today that his breathing is worse and subsequent on examination confirms this with respiratory distress with increased use of accessory muscles and some tachypnea Physical Exam Physical Exam: Mild to moderate respiratory distress Coarse breath sounds and prolonged expiratory phase with wheezing Results & Data Results & Data Vital Signs (Past 12 Hours) Vital Signs Temp Pulse Pulse Resp BP BP Pulse Ox 08/24/22 12:36 92 H 18 93 08/24/22 12:08 98.6 F 88 16 116/72 94 08/24/22 10:27 08/24/22 07:53 98.2 F 84 16 110/71 91 08/24/22 07:50 82 08/24/22 07:10 81 20 97 08/24/22 03:33 98.4 F 72 18 100/65 92 08/24/22 01:05 81 16 96 O2 Del Method O2 Flow Rate 08/24/22 12:36 Nasal Cannula 2 08/24/22 12:08 Nasal Cannula 2 08/24/22 10:27 Nasal Cannula 3 08/24/22 07:53 Nasal Cannula 2 08/24/22 07:50 08/24/22 07:10 Nasal Cannula 2 08/24/22 03:33 Nasal Cannula 2 08/24/22 01:05 Nasal Cannula 2 PG Care Time/CCT Total # of Minutes Spent Total Time Spent with Patient: Total time spent is greater than 50% in coordination of care (as documented) at patient's floor/unit and/or counseling patient: Coding Level of Care Code 67873 SUB INP/OBS CARE 350MIN Diagnoses COPD exacerbation J44.1 Severe protein-calorie malnutrition E43 Hypothyroidism E03.9 Type 2 diabetes mellitus without complication E11.9 Hyperlipidemia E78.5
[2022-08-24] MEDS ORDERED: methylPREDNISolone 125 MG in SYRINGE 0 ML IV ONE (13:00)
[2022-08-24] MEDS: FORMOTEROL 20 MCG/2 ML VIAL NEB SCH ×2 (13:54→19:17)
[2022-08-24] MEDS: BENZONATATE 100 MG CAPSULE PO PRN (21:28)
[2022-08-24] MEDS: ENOXAPARIN INJ 40 MG/0.4 ML SYR SQ SCH (21:28)
[2022-08-24] MEDS: methylPREDNISolone 40 MG in SYRINGE 0 ML IV SCH (21:29)
[2022-08-25] MEDS: ALBUT/IPRATROP 3MG/0.5MG NEB 3 ML VIAL INH SCH ×4 (00:12→19:58)
[2022-08-25] MEDS: LEVOTHYROXINE SODIUM 88 MCG TABLET PO SCH (06:15)
[2022-08-25] MEDS: FORMOTEROL 20 MCG/2 ML VIAL NEB SCH ×2 (06:57→19:24)
[2022-08-25] MEDS: INSULIN ASPART PER UNIT CHARGE SC SCH ×4 (09:03→22:07)
[2022-08-25] MEDS: ASPIRIN 81 MG ECTAB PO SCH (09:04)
[2022-08-25] MEDS: CLOPIDOGREL BISULFATE 75 MG TAB PO SCH (09:04)
[2022-08-25] MEDS: UMECLIDINIUM BROMIDE 62.5MCG/BLISTER 7 PUFFS/INHALER INH SCH (09:05)
[2022-08-25] MEDS: methylPREDNISolone 40 MG in SYRINGE 0 ML IV SCH ×2 (09:05→22:07)
[2022-08-25] MEDS: FLUTICASONE PROPIONATE NA SPR 16 GM BTL SCH (09:05)
[2022-08-25] MEDS: guaiFENesin 600 MG TABCR PO SCH ×2 (09:05→22:07)
[2022-08-25] MEDS: BENZONATATE 100 MG CAPSULE PO PRN (14:59)
--- NOTE | 2022-08-25 17:14 | Hospitalist Progress Note ---
Date of Service August 25, 2022 Assessment & Plan (1) COPD exacerbation: Plan: Acute on Chronic respiratory failure, high risk Worsened 08/24 will return to solumedrol, great improvement -azithromycin , DuoNebs every 4 hours , add fomoterol neb -Flutter valve, incentive spirometry ordered -Mucinex ordered -COVID-negative (2) Severe protein-calorie malnutrition: Plan: acute on chronic moderate risk- Consult dietitian, appreciate recommendations will likely need supplementation (3) Hypothyroidism: Plan: Chronic stable Continue levothyroxine, most recent TSH within normal limits (4) Type 2 diabetes mellitus without complication: Plan: Chronic stable but now influenced by steroids is unstable, Hold home DM 2 medications, switch to Lantus 8 units twice daily with sliding scale (5) Hyperlipidemia: Plan: chronic stable Continue statin (6) BPH (benign prostatic hyperplasia): Plan: started bph treatment with flomax Admission and Anticipated Discharge Date Admission Date: August 21, 2022 Subjective pt is much improved, feels urinary frequency has improved, PVR is not significant today, continues with non productive cough Physical Exam Physical Exam: the pt is less shortness of breath lungs are coarse, prolonged expiratory phase, no wheezes no loss car is regular abd without enlarged bladder or tenderness Results & Data Results & Data Vital Signs (Past 12 Hours) Vital Signs Temp Pulse Pulse Resp BP BP Pulse Ox 08/25/22 14:52 97.7 F 64 16 116/63 94 08/25/22 12:08 80 20 90 08/25/22 10:54 97.7 F 60 16 129/75 96 08/25/22 09:49 50 L 08/25/22 09:49 08/25/22 06:58 68 18 97 08/25/22 06:44 97.9 F 56 L 18 109/66 96 O2 Del Method O2 Flow Rate 08/25/22 14:52 Nasal Cannula 2 08/25/22 12:08 Nasal Cannula 2 08/25/22 10:54 Nasal Cannula 2 08/25/22 09:49 08/25/22 09:49 Nasal Cannula 08/25/22 06:58 Nasal Cannula 2 08/25/22 06:44 Nasal Cannula 3 PG Care Time/CCT Total # of Minutes Spent Total Time Spent with Patient: Total time spent is greater than 50% in coordination of care (as documented) at patient's floor/unit and/or counseling patient: Coding Level of Care Code 34466 SUB INP/OBS CARE MIN Diagnoses COPD exacerbation J44.1 Severe protein-calorie malnutrition E43 Hypothyroidism E03.9 Type 2 diabetes mellitus without complication E11.9 Hyperlipidemia E78.5 BPH (benign prostatic hyperplasia) N40.0
[2022-08-25] MEDS: ENOXAPARIN INJ 40 MG/0.4 ML SYR SQ SCH (22:07)
[2022-08-25] MEDS: TAMSULOSIN HCL 0.4 MG CAP PO SCH (22:07)
[2022-08-26] MEDS: ALBUT/IPRATROP 3MG/0.5MG NEB 3 ML VIAL INH SCH ×4 (01:19→19:38)
[2022-08-26] MEDS: LEVOTHYROXINE SODIUM 88 MCG TABLET PO SCH (05:37)
[2022-08-26] MEDS: FORMOTEROL 20 MCG/2 ML VIAL NEB SCH ×2 (07:31→19:38)
[2022-08-26] MEDS: INSULIN ASPART PER UNIT CHARGE SC SCH ×4 (08:39→20:21)
[2022-08-26] MEDS: guaiFENesin 600 MG TABCR PO SCH ×3 (08:45→20:20)
[2022-08-26] MEDS: CLOPIDOGREL BISULFATE 75 MG TAB PO SCH (08:45)
[2022-08-26] MEDS: UMECLIDINIUM BROMIDE 62.5MCG/BLISTER 7 PUFFS/INHALER INH SCH (08:45)
[2022-08-26] MEDS: ASPIRIN 81 MG ECTAB PO SCH (08:46)
[2022-08-26] MEDS: FLUTICASONE PROPIONATE NA SPR 16 GM BTL SCH (08:46)
[2022-08-26] MEDS: methylPREDNISolone 40 MG in SYRINGE 0 ML IV SCH ×2 (08:46→20:20)
--- NOTE | 2022-08-26 16:46 | Hospitalist Progress Note ---
Date of Service August 26, 2022 Assessment & Plan (1) COPD exacerbation: Plan: Acute on Chronic respiratory failure, high risk Improved with solumedrol ( transtion to prednisone) , exam with absent breath sounds LLL add mucolytis and chest vest -azithromycin , DuoNebs every 4 hours , add fomoterol neb -Flutter valve, incentive spirometry ordered -Mucinex ordered -COVID-negative (2) Severe protein-calorie malnutrition: Plan: acute on chronic moderate risk- Consult dietitian, appreciate recommendations supplements ordered (3) Hypothyroidism: Plan: Chronic stable Continue levothyroxine, most recent TSH within normal limits (4) Type 2 diabetes mellitus without complication: Plan: Chronic stable but now influenced by steroids is unstable, Hold home DM 2 medications, switch to Lantus 8 units twice daily with sliding scale (5) Hyperlipidemia: Plan: chronic stable Continue statin (6) BPH (benign prostatic hyperplasia): Plan: started bph treatment with flomax Admission and Anticipated Discharge Date Admission Date: August 21, 2022 Subjective pt is much improved, continues with non productive cough evidence of volume loss on exam, absence breath sounds Physical Exam Physical Exam: the pt is less shortness of breath lungs are coarse, prolonged expiratory phase, no wheezes breath sounds abscent LLL car is regular abd without enlarged bladder or tenderness Results & Data Results & Data Vital Signs (Past 12 Hours) Vital Signs Temp Pulse Resp BP BP Pulse Ox O2 Del Method 08/26/22 15:44 97.5 F L 61 20 123/67 90 Nasal Cannula 08/26/22 08:00 Nasal Cannula 08/26/22 13:35 72 18 96 Nasal Cannula 08/26/22 11:21 97.7 F 63 20 120/77 97 Nasal Cannula 08/26/22 07:31 60 18 92 Nasal Cannula 08/26/22 07:30 97.5 F L 66 20 122/75 Nasal Cannula O2 Flow Rate 08/26/22 15:44 2 08/26/22 08:00 2 08/26/22 13:35 2 08/26/22 11:21 08/26/22 07:31 3 08/26/22 07:30 PG Care Time/CCT Total # of Minutes Spent Total Time Spent with Patient: Total time spent is greater than 50% in coordination of care (as documented) at patient's floor/unit and/or counseling patient: Coding Level of Care Code 32541 SUB INP/OBS CARE MIN Diagnoses COPD exacerbation J44.1 Severe protein-calorie malnutrition E43 Hypothyroidism E03.9 Type 2 diabetes mellitus without complication E11.9 Hyperlipidemia E78.5 BPH (benign prostatic hyperplasia) N40.0
--- NOTE | 2022-08-26 19:16 | XRay Report ---
SINGLE VIEW CHEST CLINICAL HISTORY: Dyspnea. FINDINGS: 2 AP, portable, upright chest radiographs are compared to study dated 08/21/2022 and correla marie with chest CT dated 05/15/2022. The examination is degraded by portable technique and apical lordo tic positioning. The heart is mildly enlarged noting atherosclerotic calcification of the thoracic ao rta. The pulmonary vasculature is not congested. Emphysema and chronic interstitial thickening is sim ilar to previous. Foci of parenchymal scarring are seen throughout both lungs. Bibasilar opacities li karly represent scarring/atelectasis. No large pleural effusion or pneumothorax is seen. The skeletal structures are osteopenic. The bony thorax is grossly intact. IMPRESSION: 1. Cardiomegaly and emphysema. 2. Bibasilar opacities likely represent scarring/atelectasis. Correlate clinically for evidence of a superimposed infectious/inflammatory pneumonitis ACT 112: Negative or not required by law. Electronically signed by: Fabian Mcneil M.D. 08/26/2022 7:15 PM
[2022-08-26] MEDS: TAMSULOSIN HCL 0.4 MG CAP PO SCH (20:21)
[2022-08-26] MEDS: ENOXAPARIN INJ 40 MG/0.4 ML SYR SQ SCH (20:21)
[2022-08-27] MEDS: ALBUT/IPRATROP 3MG/0.5MG NEB 3 ML VIAL INH SCH ×3 (00:16→14:16)
[2022-08-27] MEDS: LEVOTHYROXINE SODIUM 88 MCG TABLET PO SCH (05:43)
[2022-08-27] MEDS: UMECLIDINIUM BROMIDE 62.5MCG/BLISTER 7 PUFFS/INHALER INH SCH (07:24)
[2022-08-27] MEDS: guaiFENesin 600 MG TABCR PO SCH ×2 (07:24→07:25)
[2022-08-27] MEDS: ASPIRIN 81 MG ECTAB PO SCH (07:25)
[2022-08-27] MEDS: CLOPIDOGREL BISULFATE 75 MG TAB PO SCH (07:25)
[2022-08-27] MEDS: FLUTICASONE PROPIONATE NA SPR 16 GM BTL SCH (07:26)
[2022-08-27] MEDS: FORMOTEROL 20 MCG/2 ML VIAL NEB SCH (07:35)
[2022-08-27] MEDS ORDERED: AZITHROMYCIN 250 MG TAB PO ONE (08:38)
[2022-08-27] MEDS ORDERED: predniSONE 20 MG TAB PO SCH (09:00)
[2022-08-27] MEDS: INSULIN ASPART PER UNIT CHARGE SC SCH ×2 (09:30→12:10)
[2022-08-27 14:57] VITALS: TEMP 97.9; O2SAT 98
[2022-08-27 16:18] VITALS: BP 123/67; PULSE 62
--- NOTE | 2022-08-27 16:28 | Discharge Summary ---
Date of Service August 27, 2022 Admission HPI Per Admitting Provider Patient is an 81-year-old male with a past medical history of severe COPD, hypothyroidism, severe protein calorie malnutrition, and hyperlipidemia who presents to the ED for 3 to 4-day history of worsening shortness of breath. Patient reports over the past few days he has had increasing shortness of breath with sputum production that is white and najera in color. Not sure that is actually getting worse but is certainly productive. He has had multiple visits in the past year with COPD exacerbation and pneumonia. Denies any chest pain with his shortness of breath. Eating and drinking has been at baseline without any nausea or vomiting. No history of CAD, stroke, ND, or congestive heart failure. He does report that he is on 2 L nasal cannula at home which has not been sufficient. Patient lives at home without much ambulation and no one really seems to check on him per his history. No pets or family. Denies any recent falls or passing out. Patient used to be a pack per day smoker for 60 years but quit smoking 2 weeks ago. No other complaints at this time ED course: White blood cell count mildly elevated at 11.5. Procalcitonin negative. Otherwise remaining labs within normal limits. Last A1c 7.5. Chest x-ray showed mild reticulonodular interstitial thickening within the right lung which is likely chronic however mild infectious process cannot be excluded. There is also emphysema noted. Patient suspected to have COPD exacerbation and was given DuoNeb, first dose of azithromycin, and methylprednisone. Hospitalist team was then consulted for admission to the hospital Principal Diagnosis Acute on chronic exacerbation of chronic respiratory failure with hypoxemiaCOPD exacerbation Bronchitis Possible TIA BPH with symptoms Discharge Exam Patient awake alert without persistent issues is with at his baseline shortness of breath according to the patient. Lungs have prolonged expiratory phase poor air movement but no focal loss of breath sounds Discharge Data Allergies Allergy/AdvReac Type Severity Reaction Status Date / Time No Known Allergies Allergy Mild Verified 08/21/22 20:44 Consultations 08/21/22 19:37 ED Decision to Admit Stat Ordered Studies 08/23/22 05:31 CT head/brain wo con Stat Hospital Course (1) COPD exacerbation: Acute on Chronic respiratory failure, high risk Improved with solumedrol ( transtion to prednisone) , continues with home flutter valve and mucolytic agents. -Additional doxycycline given at home, returns to home inhaled medication therapies Mometasone formoterol fluticasone p.o. Tritropium and PRn DuoNebs -COVID-negative (2) Severe protein-calorie malnutrition: acute on chronic moderate risk- Consult dietitian, appreciate recommendations supplements ordered (3) Hypothyroidism: Chronic stable Continue levothyroxine, most recent TSH within normal limits (4) Type 2 diabetes mellitus without complication: Chronic stable but now influenced by steroids return to home diabetic control medications includes metformin empagliflozin (5) Hyperlipidemia: chronic stable Continue statin Patient had episode of confusion and associate with hypoglycemia. May be mild TIA. Patient will be on 21-day overlap of aspirin and Plavix therapy transitioning to Plavix therapy. Statin will be also continued and increased. He has complete resolution of his symptoms (6) BPH (benign prostatic hyperplasia): started bph treatment with flomax Total Time Total Time Spent Total Time Spent (In Minutes): It required greater than 30 minutes to prepare this patient for discharge Discharge Plan Discharge Items Patient Disposition: Home - Self-Care Reason For Visit: SOB Discharge Diagnosis: copd exacerbation bph bronchitis Activity: Resume your previous activity Non-emergency contact: Primary Care Provider Call non-emergency contact if: your symptoms worsen Follow-up/Referrals: Kimberlee Syed MD [Primary Care Provider] - 09/03/22 11:00 am Diet: Carb Consistent or DM2 Addtl Attending Provider Instructions: please follow up with family doctor this week complete your prednisone taper and antibiotics take plavix for 3 weeks along with aspirin and then stop aspirin, your atorvastatin has also been increased to 40 Please be sure to follow-up with your family doctor within a week. Pending Studies at Discharge: No Stand-Alone Forms: [facility] [employer], Smoking Cessation Medications and DC Order Prescriptions: New clopidogrel 75 mg Tablet 75 mg PO QAM Qty: 30 3RF tamsulosin 0.4 mg Capsule 0.4 mg PO HS Qty: 30 3RF doxycycline hyclate 100 mg capsule 100 mg PO BID 3 Days Qty: 6 0RF Continued metformin 1,000 mg tablet extended release 24hr 1,000 mg PO BID Qty: 180 3RF levothyroxine 88 mcg tablet 88 mcg PO QAM Qty: 90 3RF albuterol sulfate 90 mcg/actuation HFA aerosol inhaler 2 inh inhalation QID PRN (Reason: shortness of breath or wheezing) Qty: 18 3RF empagliflozin 25 mg tablet 25 mg PO QAM Qty: 90 3RF ipratropium-albuterol 0.5 mg-3 mg(2.5 mg base)/3 mL solution for nebulization 3 ml inhalation Q4H PRN (Reason: shortness of breath or wheezing) Qty: 180 3RF Spiriva Respimat 2.5 mcg/actuation mist 2 puff inhalation DAILY Qty: 3 3RF (DME) OneTouch Ultra Test Strip See Rx Instructions .Route Qty: 200 3RF Rx Instructions: Test Twice per day as needed Dulera 200-5 mcg/actuation HFA aerosol inhaler 2 puff inhalation BID Qty: 13 5RF Rx Instructions: INHALE 2 PUFFS BY MOUTH TWICE A DAY (DME) pen needle, diabetic [Novofine 32] 32 gauge x 1/4" needle See Rx Instructions .Route Qty: 100 1RF Rx Instructions: Use daily for liraglutide (victoza) injection guaifenesin [Mucinex] 600 mg Tablet Extended Release 12hr 600 mg PO Q12H Qty: 60 0RF prednisone 10 mg tablet 10 mg PO .daily as directed Qty: 40 0RF Rx Instructions: 4 a day x 4 d>3 a day x 4 d>2 a day x 4 d>1 a day aspirin 81 mg Tablet,Delayed Release (Dr/Ec) 81 mg PO QAM fluticasone propionate 50 mcg/actuation spray,suspension 2 spray NA QAM diclofenac sodium [Voltaren Arthritis Pain] 1 % Gel 4 g EXT QID PRN (Reason: neck pain, joint pain) Qty: 1 0RF Rx Instructions: purchase [id number] (DME) Oxygen Home Liters Per Minute See Rx Instructions .ROUTE .MEDSUPPLY Qty: 1 0RF Rx Instructions: 2 liters with activity/ambulation. Changed atorvastatin 20 mg tablet 40 mg PO QAM Qty: 90 3RF Discharge Orders: Discharge Order (Routine); Ordered 08/27/22 Ordered By: Jon Mclain Admission Data Admit Date/Time: 08/21/22 20:29 Attending Provider: Jon Mclain Admit Provider: Jayme Obrien Primary Care Provider: Kimberlee Syed Other Providers: Jayme Obrien Other Interventions: Discharge Summary Assessment (RN) Last Done: 08/27/22 16:18 Coding Level of Care Code 64928 INP/OBS DISCH >30 MIN Diagnoses COPD exacerbation J44.1 Severe protein-calorie malnutrition E43 Hypothyroidism E03.9 Type 2 diabetes mellitus without complication E11.9 Hyperlipidemia E78.5 BPH (benign prostatic hyperplasia) N40.0
[2022-08-27] MEDS ORDERED: INSULIN ASPART PER UNIT CHARGE SC SCH (16:30)
[2022-08-28] MEDS ORDERED: AZITHROMYCIN 250 MG TAB PO SCH (09:00)
== END 2022-08-27 20:25 | disposition home or self-care (01) | DRG 189 ==
LOC: ED 18:21 → 2W 20:29 → SUATTDRO 20:29 → 2W 21:30 → 2N 08-26 09:01

== ENCOUNTER 2023-07-04 09:45 | Inpatient (IN) ==
[2023-07-04] MEDS ORDERED: ALBUT/IPRATROP 3MG/0.5MG NEB 3 ML VIAL NEB ONE (09:58)
[2023-07-04] MEDS ORDERED: dexAMETHasone**PF** 10 MG/ML VIAL IV ONE (09:58)
[2023-07-04] MEDS ORDERED: ALBUT/IPRATROP 3MG/0.5MG NEB 3 ML VIAL ONE (09:58)
[2023-07-04] MEDS ORDERED: MAGNESIUM SULFATE / D5W 1 GM/100 ML BAG IV STA (09:58)
--- NOTE | 2023-07-04 10:03 | Emergency Department Note ---
Impression & Plan Acute respiratory failure with hypoxia, Multifocal pneumonia ED Provider Note Name: KATHERYN TORREZ Age: 82 Sex: Male Arrives Via: Walk-In Informant: Patient, EMS ED Provider: Cesar Urbina MD Chief Complaint: Shortness of breath Impression: As per impressions above Medical Decision Makin-year-old gentleman with COPD who uses 1 to 2 L nasal cannula O2 at home. He arrives for evaluation of rapidly worsening shortness of breath over the last few days but does note breathing has been difficult for the last few weeks. On examination patient is in severe distress tachycardic hypoxic and is quite mottled and mildly confused. On nonrebreather sats are really not coming up well and with lung exam he was switched rapidly to BiPAP. Continuous neb along with IV steroids initiated. Vast improvement in patient's findings and he is fully neuro intact awake alert oriented. Chest x-ray concerning for multifocal pneumonia. Cultures and lactate have been obtained. He was given empiric IV cefepime for antibiotic management along with a MRSA swab and sputum culture. Bio fire is negative for viral respiratory pathogens. At this point I feel COPD exacerbation secondary to pneumonia is likely the cause of his hypoxia issues, lactate is good he is not hypotensive. He does not require fluid resuscitation at this time. Patient will be admitted to hospital service for further evaluation. Of note patient does have a history of CTA about a year ago for similar symptoms. He does not have a history of DVT PE and I feel his pneumonia/COPD is much more likely cause of respiratory issue then a PE and would hold off on doing CTA at this time especially given dye load. Triage/Nursing Notes reviewed by Me Differential:Reactive airway disease, pneumonia, pneumothorax, COPD, CHF, infections, cardiac ischemia, pulmonary embolism, musculoskeletal, gastrointestinal, as well as other pathologies. Vital Signs: reviewed and remarkable for hypoxia, tachycardia Interventions: Decadron 10 mg IV, BiPAP, cefepime 2 g IV, DuoNeb continuous Labs:ED labs Reviewed by me and remarkable for moderately elevated pCO2 on VBG Imagin view chest x-ray as per my interpretation reveals bilateral pulmonary infiltrates consistent with pneumonia new from previous x-ray EKG:As per my interpretation. Indication respiratory failure. Sinus at 79 bpm with prolonged first-degree AV block QTc 457. No ectopy nor ischemia appreciated. Similar to EKG from February 08, 2023. Cardiac/Tele Monitoring: Cardiac Monitoring: An Order was placed for continuous cardiac monitoring. The monitor shows a rate of 80 with a normal sinus rhythm. Consults:Dr Mignon BARBA Hospitalist Plan: Disposition:Hospitalization. Condition: Fair History of Present Illness: 82-year-old male arrives for evaluation of respiratory distress. Patient states that he has a long history of COPD quit smoking about a year ago. Patient states that at home he uses nasal cannula O2 however the last few weeks he feels like it has not been helping as much. Over the last few days though he has had significant worsening in his shortness of breath. He got to the point where he could not catch his breath overnight and decided to come to the ER. Has been using nebs and oxygen at home without really no improvement. Any exertion makes it significantly worse. No recent antibiotics or steroids. Denies any leg swelling or calf pain. No fevers, chills, chest pain, headache, syncope or other concerning signs or symptoms. Past Medical History: Type 2 diabetes, COPD, hyperlipidemia, BPH, hypothyroidism, hypertension Home Medications:See Below Allergies: No known drug allergy Vitals:Blood Pressure: 143/88, Pulse 116, RR 24, T 36.5C, O2 82% on 6L NC Physical Exam: GENERAL: Patient is unwell appearing and in moderate distress. RESPIRATORY: Severe dyspnea/tachypnea. Minimal air movement all lung holland with some faint expiratory wheeze appreciated.. CARDIOVASCULAR: Tachycardic.No murmur appreciated. GASTROINTESTINAL: Abdomen soft, non-tender, no peritonitis. EXTREMITIES: Normal motion all extremities, moderate cyanosis of extremities, no edema. NEUROLOGIC: Alert and oriented. No focal neurologic deficits appreciated SKIN: No rash, no jaundice, no diaphoresis. Mildly cyanotic PSYCH: Appropriate GCS: 15 ED Course: Times/Reassessments: Multiple repeat evaluations. Patient is vastly improved while on BiPAP. He is breathing more comfortably he is getting good aeration. Agreeable to hospitalization. Critical Care: I have personally spent 40 minutes of critical care time in the direct management of this patient. Acute hypoxic respiratory failure secondary to acute COPD exacerbation secondary to multifocal pneumonia requiring resuscitation and positive pressure ventilation.. This was a life/limb threatening event. This minutes is in excess of all separately billable procedures. Cesar Urbina MD Past Med/Surg History Medical History (Updated 07/05/23 @ 06:41 by Cesar Urbina MD) Hypertension Chronic bronchitis Chronic obstructive pulmonary disease Type 2 diabetes mellitus with microalbuminuria Tobacco abuse Neck pain Abnormal chest CT Pneumonia Severe protein-calorie malnutrition Pneumonia Hyperlipidemia Hypersomnolence COPD with emphysema inhalers daily/prn, nebulizer prn COPD (chronic obstructive pulmonary disease) case management patient Acquired deviated nasal septum Actinic keratosis Chronic gout Frequent PVCs Hypothyroidism Incidental lung nodule, > 3mm and < 8mm Tobacco use Chronic diarrhea Surgical History Hx of vasectomy History of colonoscopy last 2018 History of Mohs micrographic surgery for skin cancer x3 History of wisdom tooth extraction History of bilateral cataract extraction History of appendectomy History of tonsillectomy Family History Other No family history of adverse response to anesthesia Denies family history of Ovarian cancer Prostate cancer Myocardial infarction Breast cancer Colorectal cancer Social History Smoking Status: Former smoker Tobacco Type: Cigarettes Cigarettes Per Day: 3 pack/day; Second Hand Exposure: No; Do You Dip or Chew Tobacco: No; Hx Alcohol Use: No Hx Substance Use: No Preferred Language: British Communication Ability: Effective Visual Impairment: No Limitations Hearing Ability: Normal Instantizer Operator Required: No Beliefs That Will Affect Care: None marital status: Single Current Living Situation: Alone current occupational status: retired How many Children do You have: 1 Other Information That Helps Us Care for You: No Feels Safe at Home: Yes Safety Concerns: Feels Safe At This Time Dental Care, Regularly: Yes Physical Activity Frequency: 1-2 Times per Week Seatbelt Use: always Sunscreen Use: No Assistive Devices: None Allergies Allergies Allergy/AdvReac Type Severity Reaction Status Date / Time No Known Allergies Allergy Mild Verified 05/25/23 11:49 Home Meds Home Medications Medication Instructions Recorded Confirmed aspirin 81 mg tablet,delayed 0 mg PO QAM 05/14/21 07/04/23 release fluticasone propionate 50 0 spray NA QAM 10/09/21 07/04/23 mcg/actuation nasal spray,suspension guaifenesin 600 mg tablet, 0 mg PO Q12H 07/04/23 07/04/23 extended release 12 hr (Mucinex) losartan 25 mg tablet 25 mg PO DAILY 07/04/23 07/04/23 metformin 500 mg tablet,extended 1,000 mg PO BID 07/04/23 07/04/23 release 24 hr Previous Rx's Medication Instructions Recorded Oxygen Home #1 ea 05/19/22 levothyroxine 88 mcg tablet 88 mcg PO QAM #90 tabs 11/21/22 albuterol sulfate 90 mcg/actuation 2 inh inhalation QID PRN shortness 04/15/23 aerosol inhaler of breath or wheezing #18 grams ipratropium 0.5 mg-albuterol 3 mg 3 ml inhalation Q4H PRN shortness 05/11/23 (2.5 mg base)/3 mL nebulization of breath or wheezing #180 vials soln tiotropium bromide 2.5 2 puff inhalation DAILY #3 Inhalers 05/11/23 mcg/actuation mist for inhalation (Spiriva Respimat) blood sugar diagnostic (OneTouch #200 ea 06/09/23 Ultra Test strips) empagliflozin 25 mg tablet 25 mg PO QAM #90 tabs 06/09/23 azelastine 137 mcg (0.1 %) nasal 1 spray intranasal BID #30 mL 07/02/23 spray aerosol Results & Data (ED) Vital Signs Vital Signs - 24 hr 07/04/23 09:48 07/04/23 09:59 07/04/23 09:59 Pulse Rate 116 H Pulse Rate [Right Finger] Respiratory Rate 24 Respiratory Effort / Characteristics Spontaneous Accessory Muscle Use Nasal Flaring Short of Breath SOB on Exertion Respiratory Depth Normal Respiratory Pattern Tachypnea Blood Pressure 143/88 H Blood Pressure Mean 106 Pulse Oximetry 84 L 82 L Oxygen Delivery Method Room Air Non-rebreather Nasal Cannula Non-rebreather Oxygen Flow Rate 15 6 Fraction of Inspired Oxygen Sepsis Recent Fever Within 48 Hours No Sepsis New/Unexplained Change in Mental Status N/A Sepsis Action Taken by Nursing Physician Notified Oxygen Flow Rate - Titration 15 Pulse Oximetry Post Tiitration 95 07/04/23 10:15 07/04/23 10:17 07/04/23 10:21 Pulse Rate 94 H 99 H Pulse Rate [Right Finger] 93 H Respiratory Rate 16 16 Respiratory Effort / Characteristics Spontaneous Non-Labored Spontaneous Respiratory Depth Respiratory Pattern Regular Blood Pressure Blood Pressure Mean Pulse Oximetry 97 97 Oxygen Delivery Method BiPAP Oxygen Flow Rate Fraction of Inspired Oxygen 30 30 Sepsis Recent Fever Within 48 Hours Sepsis New/Unexplained Change in Mental Status Sepsis Action Taken by Nursing Oxygen Flow Rate - Titration Pulse Oximetry Post Tiitration Laboratory Data 07/05/23 05:52 07/04/23 10:04 Lab Results 07/04/23 07/04/23 Range/Units 10:04 10:05 WBC 14.83 H (4.8-10.8) K/ul RBC 5.57 (4.70-6.10) M/uL Hgb 16.3 (14.0-18.0) g/dl Hct 51.6 (42.0-52.0) % MCV 92.6 (80.0-100.0) fL MCH 29.3 (25.0-34.0) pg MCHC 31.6 L (32.0-36.0) g/dL RDW Std Deviation 46.9 H (36.4-46.3) fL RDW Coeff of Samantha 13.7 (11.5-14.5) % Plt Count 279 (130-400) K/uL MPV 10.4 (9.4-12.4) fL Immature Gran % (Auto) 0.5 % Neut % (Auto) 83.7 % Lymph % (Auto) 6.0 % Davie % (Auto) 9.0 % Eos % (Auto) 0.3 % Baso % (Auto) 0.5 % Neut # (Auto) 12.41 H (1.40-6.50) K/uL Lymph # (Auto) 0.89 L (1.20-3.40) K/uL Davie # (Auto) 1.34 H (0.11-0.59) K/uL Eos # (Auto) 0.05 (0.00-0.50) K/uL Baso # (Auto) 0.07 (0.00-0.20) K/uL Immature Gran # (Auto) 0.07 (0.01-0.20) K/uL PT 10.6 (9.0-12.0) Seconds INR 1.0 (0.9-1.1) VBG pH 7.32 L (7.36-7.41) VBG pCO2 55 H (38-50) mmHg VBG pO2 22 mmHg VBG HCO3 28 mmol/L VBG O2 Saturation < 60.0 % VBG Base Excess 1.1 mEq/L Sodium 139 (136-145) mmol/L Potassium 4.0 (3.5-5.1) mmol/L Chloride 102 (98-107) mmol/L Carbon Dioxide 26 (21-32) mmol/L Anion Gap 11 (3-11) BUN 16 (6-23) mg/dl Creatinine 0.75 (0.6-1.4) mg/dl Est Cr Clr Drug Dosing 76.3 ml/min Est GFR ( Amer) 99.7 ml/min Est GFR (Non-Af Amer) 86.0 ml/min BUN/Creatinine Ratio 21.3 H (10-20) Glucose 176 H (70-99(Fasting)) mg/dl Lactate 1.7 (0.4-2.0) mmol/L Calcium 10.4 H (8.6-10.3) mg/dl Magnesium 1.9 (1.7-2.4) mg/dl Total Bilirubin 1.4 H (0.2-1.0) mg/dl Direct Bilirubin 0.2 (0-0.2) mg/dl AST 15 (13-39) U/L ALT 21 (7-52) U/L Alkaline Phosphatase 70 (34-104) U/L Troponin I High Sens 12.5 (0-20) pg/ml Total Protein 8.2 (6.0-8.3) gm/dl Albumin 4.7 (3.4-5.0) gm/dl Procalcitonin 0.30 (0-0.5) ng/ml Adenovirus (PCR) Not Detected (NotDetected) B. pertussis DNA (PCR) Not Detected (NotDetected) B.parapertussis DNA PCR Not Detected (NotDetected) C. pneumoniae DNA (PCR) Not Detected (NotDetected) Coronavirus OC43 (PCR) Not Detected (NotDetected) Coronavirus HKU1 (PCR) Not Detected (NotDetected) Coronavirus 229E (PCR) Not Detected (NotDetected) SARS-CoV-2 (PCR) Not Detected (NotDetected) Coronavirus NL63 (PCR) Not Detected (NotDetected) Human Metapneumovir PCR Not Detected (NotDetected) Influenza Type A (PCR) Not Detected (NotDetected) Influenza Type B (PCR) Not Detected (NotDetected) M. pneumoniae (PCR) Not Detected (NotDetected) Parainfluenza 1 (PCR) Not Detected (NotDetected) Parainfluenza 2 (PCR) Not Detected (NotDetected) Parainfluenza 3 (PCR) Not Detected (NotDetected) Parainfluenza 4 (PCR) Not Detected (NotDetected) RSV (PCR) Not Detected (NotDetected) Entero/Rhino (PCR) Not Detected (NotDetected) Administered Medications Albuterol (Albut/Ipratrop 3mg/0.5mg Neb 3 Ml Vial) 3 ml NEB QIDR AURELIO; Protocol Stop: 08/03/23 14:59 Last Admin: 07/04/23 19:31 Dose: Not Given Documented By: Admin: 07/04/23 15:36 Dose: 3 ml Documented By: AARTI Azelastine HCl (Azelastine Hcl 0.1% Nasal 200 Sprays/27,400 Mcg Btl) 1 sprays NA BID AURELIO Stop: 08/03/23 20:59 Last Admin: 07/04/23 20:10 Dose: 1 sprays Documented By: YESSENIA Budesonide (Budesonide 0.5 Mg/2 Ml Vial (Pulmicort)) 0.5 mg NEB BIDR AURELIO Stop: 08/03/23 18:59 Last Admin: 07/04/23 19:31 Dose: 0.5 mg Documented By: ANGELA Enoxaparin Sodium (Enoxaparin Inj 40 Mg/0.4 Ml Syr) 40 mg SQ Q24H AURELIO Stop: 08/03/23 20:59 Last Admin: 07/04/23 20:54 Dose: 40 mg Documented By: YESSENIA Formoterol Fumarate (Formoterol 20 Mcg/2 Ml Vial) 20 mcg NEB BIDR AURELIO Stop: 08/03/23 18:59 Last Admin: 07/04/23 19:31 Dose: 20 mcg Documented By: ANGELA Guaifenesin (Guaifenesin 600 Mg Tabcr) 600 mg PO Q12 AURELIO Stop: 08/03/23 20:59 Last Admin: 07/04/23 20:12 Dose: 600 mg Documented By: YESSENIA Ceftriaxone Sodium 2,000 mg/ (Dextrose) 50 mls @ 100 mls/hr IV Q24H AURELIO; Protocol Stop: 07/11/23 18:59 Last Infusion: 07/04/23 20:46 Dose: Infused Documented By: Admin: 07/04/23 20:05 Dose: 100 mls/hr Documented By: YESSENIA Methylprednisolone 60 mg/ (Syringe) 0.96 mls @ 1.5 mls/min IV Q12H AURELIO Stop: 08/03/23 16:59 Last Admin: 07/05/23 05:30 Dose: 1.5 mls/min Documented By: Admin: 07/04/23 17:56 Dose: 1.5 mls/min Documented By: JULIA Insulin Aspart (Insulin Aspart Per Unit Charge) 0 units SC ACHS AURELIO Stop: 08/03/23 11:29 Last Admin: 07/04/23 20:53 Dose: 5 units Documented By: YESSENIA Co-signed By: JONATAN Admin: 07/04/23 17:00 Dose: 1 units Documented By: JULIA Co-signed By: ROXANA Admin: 07/04/23 14:00 Dose: 1 units Documented By: LEONIE Co-signed By: BAO Levothyroxine Sodium (Levothyroxine Sodium 88 Mcg Tablet) 88 mcg PO DAILY@0630 [facility] Stop: 08/04/23 06:29 Last Admin: 07/05/23 05:29 Dose: 88 mcg Documented By: YESSENIA Discontinued Medications Albuterol (Albut/Ipratrop 3mg/0.5mg Neb 3 Ml Vial) 12 ml NEB ONE ONE; Protocol Stop: 07/04/23 09:59 Last Admin: 07/04/23 10:19 Dose: 12 ml Documented By: AARTI Albuterol (Albut/Ipratrop 3mg/0.5mg Neb 3 Ml Vial) Confirm Administered Dose 3 ml .ROUTE .STK-MED ONE Stop: 07/04/23 09:59 Last Admin: 07/04/23 10:32 Dose: Not Given Documented By: LEONIE Dexamethasone Sodium Phosphate (DexamethasonePf 10 Mg/Ml Vial) 10 mg IV NOW ONE Stop: 07/04/23 09:59 Last Admin: 07/04/23 10:32 Dose: 10 mg Documented By: LEONIE Magnesium Sulfate/Dextrose (Magnesium Sulfate / D5w) 1 gm in 100 mls @ 100 mls/hr IV NOW [facility] Stop: 07/04/23 10:57 Last Infusion: 07/04/23 11:43 Dose: Infused Documented By: Admin: 07/04/23 10:32 Dose: 100 mls/hr Documented By: MT Cefepime HCl (Maxipime) 2,000 mg in 20 mls @ 5 mls/min IV NOW STA Stop: 07/04/23 11:04 Last Admin: 07/04/23 11:15 Dose: 5 mls/min Documented By: MT Azithromycin 500 mg/ Dextrose 255 mls @ 127.5 mls/hr IV NOW STA Stop: 07/04/23 13:07 Last Infusion: 07/04/23 14:04 Dose: Infused Documented By: Admin: 07/04/23 11:18 Dose: 127.5 mls/hr Documented By: LEONIE Parenteral Electrolytes (Plasma-Lyte A Ph 7.4) 500 mls @ 999 mls/hr IV .Q31M ONE Stop: 07/04/23 14:26 Last Admin: 07/04/23 17:07 Dose: Not Given Documented By: JULIA Insulin Glargine (Lantus Per Unit Charge) 20 units SC ONE ONE Stop: 07/04/23 13:46 Last Admin: 07/04/23 14:01 Dose: 20 units Documented By: LEONIE Co-signed By: BAO Discharge Plan Visit Data Chief Complaint: Shortness of Breath/Dyspnea Stated Complaint: DIFFICULTY BREATHING ED Provider: Cesar Urbina Discharge Problem: Acute respiratory failure with hypoxia, Multifocal pneumonia Patient Disposition: Admitted As Inpatient Discharge Instructions Interventions: ED Discharge Assessment Last Done: 07/04/23 12:11
[2023-07-04 10:15] LABS: Base Excess VBG 1.1 mEq/L; HCO3 VBG 28 mmol/L; Oxygen Saturation VBG < 60.0 %; PCO2 VBG 55 mmHg (38-50); PO2 VBG 22 mmHg; pH VBG 7.32 (7.36-7.41)
[2023-07-04 10:20] LABS: Basophils # (auto) 0.07 K/uL (0.00-0.20); Basophils % (auto) 0.5 %; Eosinophils # (auto) 0.05 K/uL (0.00-0.50); Eosinophils % (auto) 0.3 %; Hematocrit (blood only) 51.6 % (42.0-52.0); Hemoglobin 16.3 g/dl (14.0-18.0); Immature Granulocytes # (auto) 0.07 K/uL (0.01-0.20); Immature Granulocytes % (auto) 0.5 %; Lymphocytes # (auto) 0.89 K/uL (1.20-3.40); Mean Corpuscular Hemoglobin 29.3 pg (25.0-34.0); Mean Corpuscular Hgb Conc 31.6 g/dL (32.0-36.0); Mean Corpuscular Volume 92.6 fL (80.0-100.0); Mean Platelet Volume 10.4 fL (9.4-12.4); Monocytes # (auto) 1.34 K/uL (0.11-0.59); Neutrophils # (auto) 12.41 K/uL (1.40-6.50); Neutrophils % (auto) 83.7 %; Platelet Count 279 K/uL (130-400); RDW Coefficient of Variation 13.7 % (11.5-14.5); RDW Standard Deviation 46.9 fL (36.4-46.3); Red Blood Count 5.57 M/uL (4.70-6.10); White Blood Count 14.83 K/ul (4.8-10.8)
[2023-07-04 10:41] LABS: Albumin Level 4.7 gm/dl (3.4-5.0); BUN Creatinine Ratio 21.3 (10-20); Bilirubin Direct 0.2 mg/dl (0-0.2); Bilirubin,Total 1.4 mg/dl (0.2-1.0); Calcium 10.4 mg/dl (8.6-10.3); Creatinine Clr Calc Pharmacy 76.3 ml/min; Est GFR (African American) 99.7 ml/min; Magnesium 1.9 mg/dl (1.7-2.4); Total Protein 8.2 gm/dl (6.0-8.3)
[2023-07-04 10:44] LABS: Prothrombin Time 10.6 Seconds (9.0-12.0)
[2023-07-04 10:45] LABS: Troponin I High Sensitivity 12.5 pg/ml (0-20)
--- NOTE | 2023-07-04 10:54 | XRay Report ---
XR chest 1V portable CLINICAL HISTORY: shob TECHNIQUE: Single frontal radiograph of the chest was obtained. Comparison: Comparison is made to CT chest 03/23/2023 and chest radiograph 05/25/2023 FINDINGS: No lines and tubes are seen. The cardiomediastinal silhouette is normal. Interstitial thickening is s een. There is interval development of bibasilar airspace opacity. No evidence of pleural effusion or pneumothorax. IMPRESSION: Interval development of bibasilar ulcers opacities which may represent atelectasis, aspiration, and/o r pneumonia. ACT 112: Negative or not required by law. Electronically signed by: Jorje Espinal M.D. 07/04/2023 10:52 AM
[2023-07-04] MEDS ORDERED: CEFEPIME 2,000 MG/20 ML VIAL IV STA (11:01)
[2023-07-04 11:07] LABS: Adenovirus PCR Not Detected (NotDetected); Bordetella parapertussis PCR Not Detected (NotDetected); Bordetella pertussis PCR Not Detected (NotDetected); Chlamydia pneumoniae PCR Not Detected (NotDetected); Coronavirus 229E PCR Not Detected (NotDetected); Coronavirus CoV-2 (COVID19)PCR Not Detected (NotDetected); Coronavirus HKU1 PCR Not Detected (NotDetected); Coronavirus NL63 PCR Not Detected (NotDetected); Coronavirus OC43PCR Not Detected (NotDetected); Human Metapneumovirus PCR Not Detected (NotDetected); Influenza A PCR Not Detected (NotDetected); Influenza B PCR Not Detected (NotDetected); Mycoplasma pneumoniae PCR Not Detected (NotDetected); Parainfluenza Virus 1 PCR Not Detected (NotDetected); Parainfluenza Virus 2 PCR Not Detected (NotDetected); Parainfluenza Virus 3 PCR Not Detected (NotDetected); Parainfluenza Virus 4 PCR Not Detected (NotDetected); Respiratory Syncytial VirusPCR Not Detected (NotDetected); Rhinovirus/Enterovirus PCR Not Detected (NotDetected)
[2023-07-04] MEDS ORDERED: AZITHROMYCIN 500 MG in DEXTROSE 5% 250 ML IV STA (11:08)
--- NOTE | 2023-07-04 11:09 | History & Physical Report ---
Date of Service July 04, 2023 Assessment & Plan (1) Acute respiratory failure with hypoxia: Plan: -Admit to the PCU on tele and pulse oximetry -Currently stable on Bipap at 12/5 and 30% FiO2 -Presented to the [facility] ED with a month of progressive SOB/BETTS compared to his baseline -Significantly hypoxic and in respiratory failure on arrival, quickly placed on Bipap and has been stable -VBG showed a pCO2 of 55 (but this was on RA, patient is supposed to use 2L NC at all times), for now will not consider this with hypercapnia on admisison -Has been afebrile, mild leukocytosis, negative procal, but CXR consistent with multifocal pneumonia -Full respiratory biofire was negative -At this time it appears that the patient has a multifocal pneumonia causing COPD exacerbation -S/P one dose of cefepime in the ED, will continue with ceftriaxone and azithromycin for now -S/P 10 mg IV dexamethasone in the ED, will continue with 60 mg IV Agustina-medrol BID17 -Significant improvement after hour-long DuoNeb in the ED >Start QIDR Duonebs >Start Q12H Budesonide and formoterol Nebs -Received 1gm IV mag sulfate in the ED -Incentive spirometry, flutter therapy, Q12H Guaifenesin -Will obtain ABG in 3 hours, if significant improvement then will wean to HFNC -Continuous O2 to keep SpO2 between 89-92%, patient is supposed to use 2L NC at all times, has only been using 1L at home -Monitor sputum culture with gram stain when obtain -If not significantly improved by 07/05, could consult Pulmonology -SQ lovenox for DVT PPX -NPO while on Bipap -AM CBC, BMP, mag, (2) Chronic obstructive pulmonary disease: Plan: -See Acute hypoxic respiratory failure (3) Elevated bilirubin: Plan: -Total bili elevated at 1.4 today -Denies abd pain, other LFT's are WNL, no jaundice or scleral icterus -Possibly due to dehydration -Will give 500 mL Plasmalyte bolus on admission -Monitor am CMP (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 Crow at the time of the admission History of Present Illness Chief Complaint: Progressive SOB Primary Care Provider: Kimberlee Syed MD Antonio Seymour is an 82-year-old male with a past medical history of severe COPD, chronic hypoxic respiratory failure (supposed to use 2L NC at all times per last Pulm Note on 04/27/23), previous tobacco use (quite ~ 1 yr ago), type II DM, hyperlipidemia, and hypothyroidism who presented to the [facility] ED on 07/04/23 with a chief complaint of progressive SOB over the past month. He was noted to be hypoxic at 84% on RA, tachycardic at 116, but otherwise stable. Labs were significant for a VBG pH of 7.32 (on RA), pCO2 of 55, pO2 of 22, WBC of 14 with neutrophil predominance of 12, lymphocyte count of 0.89, calcium of 10.4, total bili of 1.4, negative procal, and full respiratory biofire negative. Chest xray was read as Interval development of bibasilar ulcers opacities which may represent atelectasis, aspiration, and/or pneumonia. Shortly after arrival the patient was placed on Bipap at IPAP of 12 and EPAP of 5 and was given 10 mg IV dexamethasone, an hour long duoneb treatment, 1gm IV mag/sulfate, and a dose of cefepime. At the time of the exam the patient was sitting in bed in no acute distress, currently comfortable on bipap. He states that he has been experiencing progressive SOB/BETTS compared to his baseline. His chronic cough has been much more frequent, he states it was constant over the past week. He has been producing larger amounts of sputum, it is always yellow. He has been using his home breathing treatment as prescribed without relief and has been using 1L NC at all times at home. He denies recent feve, chills, chest pain, hemoptysis, abd pain, nausea, vomiting, diarrhea, dysuria, hematuria, melena, LE swelling, and recent trauma. He confimrs that he is a DNR/DNI. His breathing feels significantly improved compared to ED arrival. Please refer to Dr. Crow's attestation for any changes to the treatment plan Allergies Allergy/AdvReac Type Severity Reaction Status Date / Time No Known Allergies Allergy Mild Verified 05/25/23 11:49 Home Medications Medication Instructions Recorded Confirmed Type aspirin 81 mg tablet,delayed 0 mg PO QAM 05/14/21 07/04/23 History release fluticasone propionate 50 0 spray NA QAM 10/09/21 07/04/23 History mcg/actuation nasal spray,suspension Oxygen Home #1 ea 05/19/22 06/09/23 Rx levothyroxine 88 mcg tablet 88 mcg PO QAM #90 tabs 11/21/22 07/04/23 Rx albuterol sulfate 90 mcg/actuation 2 inh inhalation QID PRN shortness 04/15/23 07/04/23 Rx aerosol inhaler of breath or wheezing #18 grams ipratropium 0.5 mg-albuterol 3 mg 3 ml inhalation Q4H PRN shortness 05/11/23 07/04/23 Rx (2.5 mg base)/3 mL nebulization of breath or wheezing #180 vials soln tiotropium bromide 2.5 2 puff inhalation DAILY #3 Inhalers 05/11/23 07/04/23 Rx mcg/actuation mist for inhalation (Spiriva Respimat) blood sugar diagnostic (OneTouch #200 ea 06/09/23 06/09/23 Rx Ultra Test strips) empagliflozin 25 mg tablet 25 mg PO QAM #90 tabs 06/09/23 07/04/23 Rx azelastine 137 mcg (0.1 %) nasal 1 spray intranasal BID #30 mL 07/02/23 07/04/23 Rx spray aerosol guaifenesin 600 mg tablet, 0 mg PO Q12H 07/04/23 07/04/23 History extended release 12 hr (Mucinex) losartan 25 mg tablet 25 mg PO DAILY 07/04/23 07/04/23 History metformin 500 mg tablet,extended 1,000 mg PO BID 07/04/23 07/04/23 History release 24 hr Past Med/Surg History Medical History (Updated 07/05/23 @ 06:41 by Cesar Urbina MD) Hypertension Chronic bronchitis Chronic obstructive pulmonary disease Type 2 diabetes mellitus with microalbuminuria Tobacco abuse Neck pain Abnormal chest CT Pneumonia Severe protein-calorie malnutrition Pneumonia Hyperlipidemia Hypersomnolence COPD with emphysema inhalers daily/prn, nebulizer prn COPD (chronic obstructive pulmonary disease) case management patient Acquired deviated nasal septum Actinic keratosis Chronic gout Frequent PVCs Hypothyroidism Incidental lung nodule, > 3mm and < 8mm Tobacco use Chronic diarrhea Surgical History Hx of vasectomy History of colonoscopy last 2018 History of Mohs micrographic surgery for skin cancer x3 History of wisdom tooth extraction History of bilateral cataract extraction History of appendectomy History of tonsillectomy Family History Other No family history of adverse response to anesthesia Denies family history of Ovarian cancer Prostate cancer Myocardial infarction Breast cancer Colorectal cancer Social History Smoking Status: Former smoker Tobacco Type: Cigarettes Cigarettes Per Day: 3 pack/day; Second Hand Exposure: No; Do You Dip or Chew Tobacco: No; Hx Alcohol Use: No Hx Substance Use: No Preferred Language: Frisian Communication Ability: Effective Visual Impairment: No Limitations Hearing Ability: Normal Service Correspondent Required: No Beliefs That Will Affect Care: None marital status: Single Current Living Situation: Alone current occupational status: retired How many Children do You have: 1 Other Information That Helps Us Care for You: No Feels Safe at Home: Yes Safety Concerns: Feels Safe At This Time Dental Care, Regularly: Yes Physical Activity Frequency: 1-2 Times per Week Seatbelt Use: always Sunscreen Use: No Assistive Devices: None Physical Exam Physical Exam: Physical Exam: General: In no acute distress, stated age, chronically ill appearing but non- toxic HEENT: Normocephalic, atraumatic, currently with Bipap mask in place without air leak, negative JVD Chest/Pulm: No respiratory distress, symmetrical chest expansion, rhonchi noted in the BL lower lung holland with expiratory wheezing in all other holland Cardiac: RRR, no murmurs noted Abdomen: Negative for ascites and bruising, normoactive bowel sounds, soft, non-tender to palpation throughout Musculoskeletal: Symmetrical and without signs of acute trauma, upper and lower extremities with full ROM, no atrophy, spasticity, or flaccidity Extremities: Radial, dorsalis pedis, and posterior tibial pulses are intact and symmetrical, no edema noted in the BL LE's Skin: Warm, dry, no rashes , lesions, or scars noted Neuro: Alert and oriented to person, place, month, year, and president, no focal defects, no tremors noted Psych: No acute distress, calm and cooperative during the exam Results & Data Results & Data Vital Signs (Past 12 Hours) Vital Signs Pulse Pulse Resp BP Pulse Ox O2 Del Method O2 Flow Rate 07/04/23 10:21 99 H 07/04/23 10:17 93 H 16 97 BiPAP 07/04/23 10:15 94 H 16 97 07/04/23 09:59 82 L Nasal Cannula, Non-rebreather 6 07/04/23 09:59 Non-rebreather 15 07/04/23 09:48 116 H 24 143/88 H 84 L Room Air FiO2 07/04/23 10:21 07/04/23 10:17 30 07/04/23 10:15 30 07/04/23 09:59 07/04/23 09:59 07/04/23 09:48 Laboratory Results Abnormal lab results 07/04/23 Range/Units 10:04 WBC 14.83 H (4.8-10.8) K/ul MCHC 31.6 L (32.0-36.0) g/dL RDW Std Deviation 46.9 H (36.4-46.3) fL Neut # (Auto) 12.41 H (1.40-6.50) K/uL Lymph # (Auto) 0.89 L (1.20-3.40) K/uL Mcclain # (Auto) 1.34 H (0.11-0.59) K/uL VBG pH 7.32 L (7.36-7.41) VBG pCO2 55 H (38-50) mmHg BUN/Creatinine Ratio 21.3 H (10-20) Glucose 176 H (70-99(Fasting)) mg/dl Calcium 10.4 H (8.6-10.3) mg/dl Total Bilirubin 1.4 H (0.2-1.0) mg/dl Diagnostic Findings Chest X-Ray 07/04/23 09:59 XR chest 1V portable CLINICAL HISTORY: shob TECHNIQUE: Single frontal radiograph of the chest was obtained. Comparison: Comparison is made to CT chest 03/23/2023 and chest radiograph 05/25/2023 FINDINGS: No lines and tubes are seen. The cardiomediastinal silhouette is normal. Interstitial thickening is seen. There is interval development of bibasilar airspace opacity. No evidence of pleural effusion or pneumothorax. IMPRESSION: Interval development of bibasilar ulcers opacities which may represent atelectasis, aspiration, and/or pneumonia. ACT 112: Negative or not required by law. Electronically signed by: Jorje Espinal M.D. 07/04/2023 10:52 AM ECG Additional Comments: Sinus rhythm with 1st degree A-V block Otherwise normal ECG When compared with ECG of 08-FEB-2023 19:27, No significant change was found Code Status & VTE Plan Code Status DNI/DNR VTE Prophylaxis Plan VTE Prophylaxis will be ordered: Yes Supervising Physician Co-Signing Physician Notes I personally saw and examined the patient. I verified all armando points and agree with Brayden Nieto PA-C with the following exceptions and/or additions: 82 year old male presents to the ER with shortness of breath and cough progressively worse over the last week. Significant improvement in symptoms when seen after BiPAP and Duonebs given. O/E HS increased rate, regular rhythm, no murmurs, using accessory muscle, expiratory wheeze throughout with reduced breath sounds but no crackles, rhonchi, Abdo SNT A/P Acute respiratory failure with hypoxia and hypercapnia - secondary to acute COPD exacerbation. Aim O2 sats > 88%. Significant improvement on BiPAP, can now have breaks off this now hypercapnia resolved on repeat ABG. COPD exacerbation - duonebs, budesonide/formoterol NEBs BID, Solu-medrol 60mg IV BID Multifocal pneumonia - CXR per my read shows bibasilar pneumonia with elevated WBC. Rx ceftriaxone + azithromycin Otherwise as above PG Care Time/CCT Total # of Minutes Spent Total Time Spent with Patient: Total time spent is greater than 50% in coordination of care (as documented) at patient's floor/unit and/or counseling patient: C[place] [address] INT INP/OBS CARE MIN Patient Type Established Medical Decision Making High Complexity Diagnoses Acute respiratory failure with hypoxia J96.01 Simple chronic bronchitis J41.0 COPD type: chronic bronchitis Chronic bronchitis type: simple Elevated bilirubin R17 Type 2 diabetes mellitus with microalbuminuria E11.29; R80.9 Hypothyroidism E03.9 Hypertension I10 CAD (coronary artery disease) I25.10 Multifocal pneumonia J18.9 (2) Chronic obstructive pulmonary disease COPD type: chronic bronchitis Chronic bronchitis type: simple Qualified Code(s): J41.0 - Simple chronic bronchitis
[2023-07-04] MEDS ORDERED: DEXTROSE 50% 50 ML SYRINGE IV PRN (11:30)
[2023-07-04] MEDS ORDERED: PHARMACY GLYCEMIC MGMT CONSULT PRN (11:30)
[2023-07-04] MEDS ORDERED: GLUCAGON FOR INJ 1 MG VIAL SQ PRN (11:30)
[2023-07-04] MEDS ORDERED: CARBOHYDRATES FOR HYPOGLYCEMIA PO PRN (11:30)
[2023-07-04] MEDS ORDERED: GLUCOSE 40% GEL 15 GM TUBE PO PRN (11:30)
[2023-07-04] MEDS ORDERED: GLUCOSE 10 TAB/TUBE PO PRN (11:30)
[2023-07-04] MEDS ORDERED: LANTUS PER UNIT CHARGE SC ONE (13:45)
--- NOTE | 2023-07-04 13:47 | Pharmacy Report ---
Pharmacy Glycemic Short Note 2 - Date of Service July 04, 2023 - Glycemic Short BSG Results (Last 24 hours): 07/04/23 07/04/23 10:04 13:28 Glucose 176 H POC Glucose 161 H OUTPATIENT ANTIDIABETIC REGIMEN: * Metformin 1 g PO BIDM * Jardiance 25 mg PO daily HbA1c: 8.1% (04/27/23) ASSESSMENT: * LALA is an 82 year old male who presents to ED for evaluation of respiratory distress. Pneumonia vs. COPD exacerbation. * IV antibiotics (ceftriaxone/azithromycin) initiated in addition to IV steroids (10 mg dexamethasone in OR, followed by Solu-Medrol 60 mg BID) * BSGs of 176 and 161 mg/dL so far today at hospital * Patient with mildly elevated HbA1c as an outpatient. Given steroid administration, will use somewhat aggressive SC basal/bolus regimen PLAN FOR INPATIENT GLYCEMIC CONTROL: * Hold outpatient oral diabetes medications * Basal insulin * Lantus 20 units SQ x 1 (~0.25 unit/kg) * Reassess in AM * Bolus insulin * NovoLog per scale ACHS or Q6hrs while NPO * Goal Range: Low 110 mg/dL - High 140 mg/dL * Correction Factor: 25 mg/dL/unit * Nutritional / Prandial insulin per carb ratio of 1 unit per 8 grams CHO consumed
[2023-07-04] MEDS ORDERED: PLASMA-LYTE A 500 ML IV ONE (13:56)
[2023-07-04] MEDS: INSULIN ASPART PER UNIT CHARGE SC SCH ×3 (14:00→20:53)
--- NOTE | 2023-07-04 14:06 | Electrocardiogram Report ---
Test Reason : Blood Pressure : / mmHG Vent. Rate : 097 BPM Atrial Rate : 097 BPM P-R Int : 216 ms QRS Dur : 090 ms QT Int : 360 ms P-R-T Axes : 079 069 064 degrees QTc Int : 457 ms Sinus rhythm with 1st degree A-V block Otherwise normal ECG When compared with ECG of 08-FEB-2023 19:27, No significant change was found Confirmed by Gael Mei ([id number]) on 07/04/2023 2:05:34 PM Referred By: Confirmed By:Gael Mei
[2023-07-04 15:24] LABS: HCO3 ABG 27 mmol/L (19-24); Oxygen Saturation ABG 97.5 % (90-95); PCO2 ABG 39 mmHg (35-46); PO2 ABG 79 mmHg (80-95); pH ABG 7.45 (7.35-7.45)
[2023-07-04 15:26] LABS: Allen Test Pos (Pos)
[2023-07-04] MEDS: ALBUT/IPRATROP 3MG/0.5MG NEB 3 ML VIAL NEB SCH ×2 (15:36→19:31)
[2023-07-04] MEDS ORDERED: methylPREDNISolone 125 MG/2 ML VIAL IV SCH (17:00)
[2023-07-04] MEDS: methylPREDNISolone 60 MG in SYRINGE 0 ML IV SCH (17:56)
[2023-07-04] MEDS: FORMOTEROL 20 MCG/2 ML VIAL NEB SCH (19:31)
[2023-07-04] MEDS: BUDESONIDE 0.5 MG/2 ML VIAL (PULMICORT) NEB SCH (19:31)
[2023-07-04] MEDS: cefTRIAXone SODIUM 2,000 MG in DEXTROSE 5 % MINI-B 50 ML IV SCH (20:05)
[2023-07-04] MEDS: AZELASTINE HCL 0.1% NASAL 200 SPRAYS/27,400 MCG BTL SCH (20:10)
[2023-07-04] MEDS: guaiFENesin 600 MG TABCR PO SCH (20:12)
[2023-07-04] MEDS: ENOXAPARIN INJ 40 MG/0.4 ML SYR SQ SCH (20:54)
[2023-07-04] MEDS ORDERED: LANTUS PER UNIT CHARGE SQ SCH (21:00)
[2023-07-05] MEDS: LEVOTHYROXINE SODIUM 88 MCG TABLET PO SCH (05:29)
[2023-07-05] MEDS: methylPREDNISolone 60 MG in SYRINGE 0 ML IV SCH ×2 (05:30→16:54)
[2023-07-05 06:28] LABS: Basophils # (auto) 0.02 K/uL (0.00-0.20); Basophils % (auto) 0.2 %; Hematocrit (blood only) 45.3 % (42.0-52.0); Hemoglobin 14.3 g/dl (14.0-18.0); Immature Granulocytes # (auto) 0.07 K/uL (0.01-0.20); Immature Granulocytes % (auto) 0.6 %; Lymphocytes # (auto) 0.69 K/uL (1.20-3.40); Lymphocytes % (auto) 6.2 %; Mean Corpuscular Hgb Conc 31.6 g/dL (32.0-36.0); Mean Corpuscular Volume 91.9 fL (80.0-100.0); Mean Platelet Volume 10.3 fL (9.4-12.4); Monocytes # (auto) 0.35 K/uL (0.11-0.59); Monocytes % (auto) 3.1 %; Neutrophils # (auto) 10.08 K/uL (1.40-6.50); Neutrophils % (auto) 89.9 %; Platelet Count 275 K/uL (130-400); RDW Coefficient of Variation 13.2 % (11.5-14.5); RDW Standard Deviation 45.1 fL (36.4-46.3); Red Blood Count 4.93 M/uL (4.70-6.10); White Blood Count 11.21 K/ul (4.8-10.8)
[2023-07-05 06:28] LABS: Appearance Urine Slightly Cloudy (Clear); Bilirubin Urine Negative (Negative); Blood Urine Trace-intact (Negative); Color Urine Yellow; Glucose Urine UA 2+ (Negative); Ketones Urine 1+ (Negative); Leukocyte Esterase Urine Negative (Negative); Nitrite Urine Negative (Negative); Protein Urine Negative (Negative); Specific Gravity Urine 1.015 (1.000-1.030); Urobilinogen Urine Negative (Negative); pH Urine 5.5 (4.5-7.5)
[2023-07-05 06:38] LABS: Bacteria Urine Negative (Negative); Epithelial Cell Urine 0-5 /lpf (0-5); RBC Urine 0-4 /hpf (0-4); WBC Urine 0-5 /hpf (0-5)
[2023-07-05 06:48] LABS: Albumin Globulin Ratio 1.3 (0.9-2); Albumin Level 3.8 gm/dl (3.4-5.0); BUN Creatinine Ratio 47.5 (10-20); Bilirubin,Total 0.5 mg/dl (0.2-1.0); Calcium 9.4 mg/dl (8.6-10.3); Creatinine Clr Calc Pharmacy 96.3 ml/min; Est GFR (Non-African American) 94.9 ml/min; Globulin 2.9 gm/dl (2.5-4.0); Magnesium 2.1 mg/dl (1.7-2.4); Potassium 4.1 mmol/L (3.5-5.1); Total Protein 6.7 gm/dl (6.0-8.3)
[2023-07-05] MEDS: FORMOTEROL 20 MCG/2 ML VIAL NEB SCH ×2 (07:15→19:51)
[2023-07-05] MEDS: ALBUT/IPRATROP 3MG/0.5MG NEB 3 ML VIAL NEB SCH ×4 (07:16→19:52)
[2023-07-05] MEDS: BUDESONIDE 0.5 MG/2 ML VIAL (PULMICORT) NEB SCH ×2 (07:24→19:51)
[2023-07-05] MEDS: ASPIRIN 81 MG ECTAB PO SCH (07:49)
[2023-07-05] MEDS: guaiFENesin 600 MG TABCR PO SCH ×2 (07:49→20:13)
[2023-07-05] MEDS: LOSARTAN POTASSIUM 25 MG TAB PO SCH (07:49)
[2023-07-05] MEDS: AZELASTINE HCL 0.1% NASAL 200 SPRAYS/27,400 MCG BTL SCH ×2 (07:50→20:12)
[2023-07-05] MEDS: INSULIN ASPART PER UNIT CHARGE SC SCH ×4 (08:37→20:33)
[2023-07-05] MEDS ORDERED: LANTUS PER UNIT CHARGE SC SCH (09:00)
[2023-07-05] MEDS: AZITHROMYCIN 500 MG in DEXTROSE 5% 250 ML IV SCH (11:32)
--- NOTE | 2023-07-05 15:14 | Hospitalist Progress Note ---
Date of Service July 05, 2023 Assessment & Plan (1) Acute respiratory failure with hypoxia: Plan: -Admit to the PCU on tele and pulse oximetry, has been improving -Has been afebrile, mild leukocytosis, negative procal, but CXR consistent with multifocal pneumonia -Full respiratory biofire was negative -Likely multifocal pneumonia causing COPD exacerbation -S/P one dose of cefepime in the ED, will continue with ceftriaxone and azithromycin -S/P 10 mg IV dexamethasone in the ED, will continue with 60 mg IV Agustina-medrol BID17 -Continue QIDR Duonebs -Continue Q12H Budesonide and formoterol Nebs -Incentive spirometry, flutter therapy, Q12H Guaifenesin -Continuous O2 to keep SpO2 between 89-92%, previously noted patient is supposed to use 2L NC at all times, has only been using 1L at home -Monitor sputum culture with gram stain when obtain -SQ lovenox for DVT PPX -AM CBC, CMP, mag, (2) Chronic obstructive pulmonary disease: Plan: -See Acute hypoxic respiratory failure (3) Elevated bilirubin: Plan: -Resolved s/p IVF (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 Still having mild dyspnea though. Denies any chest pain. Denies any abdominal discomfort. Review of Systems Review of Systems: Per subjective Physical Exam Physical Exam: General: Nontoxic-appearing, NAD HEENT: Normal conjunctivae, NC in place Cardiovascular: RRR Pulmonary: Diminished lung sounds throughout with scattered wheezing Abdomen: Soft, NT/ND, no guarding Extremities: Moving all extremities, no pedal edema Integumentary: No suspicious rash or lesion on exposed skin Neurologic: AAOx3, no focal deficits Psychiatric: Appropriate mood/affect Results & Data Results & Data Vital Signs (Past 12 Hours) Vital Signs Temp Pulse Resp BP Pulse Ox O2 Del Method O2 Flow Rate 07/05/23 12:42 Nasal Cannula 2 07/05/23 11:50 36.4 C L 79 18 116/72 93 Nasal Cannula 2 07/05/23 10:28 97 H 20 Room Air 07/05/23 08:04 36.4 C L 59 L 18 118/73 94 Nasal Cannula 2 07/05/23 07:17 65 17 93 Nasal Cannula 2 Laboratory Results Reviewed labs from today including CBC, cMP, glucosesnotable for mild decrease in WBC and mild hyperglycemia, normalized total bili PG Care Time/CCT Total # of Minutes Spent Total Time Spent with Patient: Total time spent is greater than 50% in coordination of care (as documented) at patient's floor/unit and/or counseling patient: Coding Level of Care Code 69713 SUB INP/OBS CARE 3/50MIN Diagnoses Acute respiratory failure with hypoxia J96.01 Simple chronic bronchitis J41.0 COPD type: chronic bronchitis Chronic bronchitis type: simple Elevated bilirubin R17 Type 2 diabetes mellitus with microalbuminuria E11.29; R80.9 Hypothyroidism E03.9 Hypertension I10 CAD (coronary artery disease) I25.10 Multifocal pneumonia J18.9 (2) Chronic obstructive pulmonary disease COPD type: chronic bronchitis Chronic bronchitis type: simple Qualified Code(s): J41.0 - Simple chronic bronchitis
[2023-07-05] MEDS ORDERED: FORMOTEROL 20 MCG/2 ML VIAL ONE (19:22)
[2023-07-05] MEDS: cefTRIAXone SODIUM 2,000 MG in DEXTROSE 5 % MINI-B 50 ML IV SCH (19:50)
[2023-07-05] MEDS: ENOXAPARIN INJ 40 MG/0.4 ML SYR SQ SCH (20:33)
[2023-07-06 05:11] LABS: Hematocrit (blood only) 44.5 % (42.0-52.0); Hemoglobin 14.1 g/dl (14.0-18.0); Mean Corpuscular Hemoglobin 28.8 pg (25.0-34.0); Mean Corpuscular Hgb Conc 31.7 g/dL (32.0-36.0); Mean Corpuscular Volume 90.8 fL (80.0-100.0); Mean Platelet Volume 10.1 fL (9.4-12.4); Platelet Count 298 K/uL (130-400); RDW Coefficient of Variation 13.1 % (11.5-14.5); RDW Standard Deviation 43.8 fL (36.4-46.3); White Blood Count 16.69 K/ul (4.8-10.8)
[2023-07-06 05:24] LABS: Albumin Globulin Ratio 1.2 (0.9-2); Albumin Level 3.5 gm/dl (3.4-5.0); BUN Creatinine Ratio 43.7 (10-20); Bilirubin,Total 0.4 mg/dl (0.2-1.0); Creatinine Clr Calc Pharmacy 79.7 ml/min; Globulin 2.9 gm/dl (2.5-4.0); Magnesium 2.2 mg/dl (1.7-2.4); Total Protein 6.4 gm/dl (6.0-8.3)
[2023-07-06 05:46] LABS: Basophils # (auto) 0.02 K/uL (0.00-0.20); Basophils % (auto) 0.1 %; Immature Granulocytes # (auto) 0.13 K/uL (0.01-0.20); Immature Granulocytes % (auto) 0.8 %; Lymphocytes # (auto) 0.78 K/uL (1.20-3.40); Lymphocytes % (auto) 4.7 %; Monocytes # (auto) 0.71 K/uL (0.11-0.59); Monocytes % (auto) 4.3 %; Neutrophils # (auto) 15.05 K/uL (1.40-6.50); Neutrophils % (auto) 90.1 %
[2023-07-06] MEDS: methylPREDNISolone 60 MG in SYRINGE 0 ML IV SCH ×2 (06:00→17:18)
[2023-07-06] MEDS: LEVOTHYROXINE SODIUM 88 MCG TABLET PO SCH (06:00)
[2023-07-06] MEDS ORDERED: FORMOTEROL 20 MCG/2 ML VIAL ONE (06:53)
[2023-07-06] MEDS: FORMOTEROL 20 MCG/2 ML VIAL NEB SCH ×2 (07:12→19:32)
[2023-07-06] MEDS: ALBUT/IPRATROP 3MG/0.5MG NEB 3 ML VIAL NEB SCH ×4 (07:12→19:32)
[2023-07-06] MEDS: BUDESONIDE 0.5 MG/2 ML VIAL (PULMICORT) NEB SCH ×2 (07:13→19:32)
[2023-07-06] MEDS: LOSARTAN POTASSIUM 25 MG TAB PO SCH (08:14)
[2023-07-06] MEDS: AZELASTINE HCL 0.1% NASAL 200 SPRAYS/27,400 MCG BTL SCH ×2 (08:14→21:15)
[2023-07-06] MEDS: ASPIRIN 81 MG ECTAB PO SCH (08:14)
[2023-07-06] MEDS: guaiFENesin 600 MG TABCR PO SCH ×2 (08:14→21:16)
[2023-07-06] MEDS: INSULIN ASPART PER UNIT CHARGE SC SCH ×4 (08:16→21:13)
[2023-07-06] MEDS: LANTUS PER UNIT CHARGE SC SCH (08:17)
--- NOTE | 2023-07-06 08:36 | Pharmacy Report ---
Pharmacy Glycemic Short Note 2 - Date of Service July 06, 2023 - Glycemic Short BSG Results (Last 24 hours): 07/05/23 07/05/23 07/05/23 12:21 16:48 20:28 Glucose POC Glucose 216 H 218 H 203 H 07/06/23 07/06/23 04:51 08:02 Glucose 170 H POC Glucose 141 H OUTPATIENT ANTIDIABETIC REGIMEN: * Metformin 1 g PO BIDM * Jardiance 25 mg PO daily HbA1c: 8.1% (04/27/23) ASSESSMENT: 07/06/23: * Hyperglycemic yesterday, likely related to ongoing IV methylprednisolone * Fasting BSG of 141 mg/dL this morning * Will increase basal and tighten Novolog parameters today * Steroids remain unchanged today (Methylprednisolone 60 mg IV BID) 07/04/23: * LALA is an 82 year old male who presents to ED for evaluation of respiratory distress. Pneumonia vs. COPD exacerbation. * IV antibiotics (ceftriaxone/azithromycin) initiated in addition to IV steroids (10 mg dexamethasone in OR, followed by Solu-Medrol 60 mg BID) * BSGs of 176 and 161 mg/dL so far today at hospital * Patient with mildly elevated HbA1c as an outpatient. Given steroid administration, will use somewhat aggressive SC basal/bolus regimen PLAN FOR INPATIENT GLYCEMIC CONTROL: * Hold outpatient oral diabetes medications * Basal insulin * Lantus 30 units SC daily * Bolus insulin * NovoLog per scale ACHS or Q6hrs while NPO * Goal Range: Low 110 mg/dL - High 140 mg/dL * Correction Factor: 15 mg/dL/unit * Nutritional / Prandial insulin per carb ratio of 1 unit per 5 grams CHO consumed
[2023-07-06] MEDS: AZITHROMYCIN 500 MG in DEXTROSE 5% 250 ML IV SCH (12:02)
--- NOTE | 2023-07-06 13:03 | Hospitalist Progress Note ---
Date of Service July 06, 2023 Assessment & Plan (1) Acute respiratory failure with hypoxia: Plan: -Patient has a history of COPD, uses 2 L of oxygen at home -Admitted on account of worsening shortness of breath and wheeze - CXR consistent with multifocal pneumonia -Full respiratory biofire was negative -Likely multifocal pneumonia causing COPD exacerbation -Currently clinically much improved -Continue QIDR Duonebs -Continue Q12H Budesonide and formoterol Nebs -Incentive spirometry, flutter therapy, Q12H Guaifenesin -Continuous O2 to keep SpO2 between 89-92%, previously noted patient is supposed to use 2L NC at all times, has only been using 1L at home -Monitor sputum culture with gram stain when obtain (2) Chronic obstructive pulmonary disease: Plan: At home uses 2 L of oxygen at baseline Continue treatment as above (3) Elevated bilirubin: Plan: -Resolved s/p IVF (4) Type 2 diabetes mellitus with microalbuminuria: Plan: -Hold metformin and empagliflozin -Pharmacy glycemic consult placed for assistance with steroid treatment and likely hyperglycemia -Lantus 25U daily + Novolog ACHS with CF 20 -Blood glucose under good control (5) Hypothyroidism: Plan: -Continue levothyroxine (6) Hypertension: Plan: -Stable -Continue losartan (7) CAD (coronary artery disease): Plan: -Continue aspirin statin (8) Multifocal pneumonia: Plan Hopefully discharge in next 24 to 48 hours DNR/DNI SCDs Lovenox Admission and Anticipated Discharge Date Admission Date: July 04, 2023 Subjective Patient seen and examined today, states shortness of breath and wheezing much better. Still having some dry cough, denies chest pain. Denies chest pain Review of Systems Review of Systems: All systems reviewed are negative, apart from the ones contained in the history. Physical Exam Physical Exam: The patient is awake, alert and oriented 3, well developed and well nourished, normocephalic and atraumatic, lying in bed and in no acute distress. HEENT--PERRL, EOMI, mucous membranes and oropharynx mildly dry Neck--supple. No JVD. No bruits. Thyroid normal, trachea midline, no adeno kenton. Heart--normal S1 and S2. No murmurs, rubs or gallops. Lungs--reduced air entry auscultation, bibasilar wheeze Abdomen--normal bowel sounds and soft. Mild epigastric and left sided abdominal pain Extremities--no cyanosis or clubbing. No edema. Dermatologic--normal skin turgor, normal color, no abnormal lymph nodes, no rash. Neurologic--cranial nerves II through XII grossly intact. Rheumatologic--normal range of motion. Psychiatric--normal affect. Results & Data Results & Data Vital Signs (Past 12 Hours) Vital Signs Temp Pulse Resp BP Pulse Ox O2 Del Method O2 Flow Rate 07/06/23 11:56 98.4 F 64 18 125/74 95 Nasal Cannula 2.0 07/06/23 07:56 97.9 F 73 18 128/77 97 Nasal Cannula 07/06/23 07:15 87 22 Room Air 07/06/23 02:15 97.9 F 60 20 116/77 95 Nasal Cannula 2 PG Care Time/CCT Total # of Minutes Spent Total Time Spent with Patient: Total time spent is greater than 50% in coordination of care (as documented) at patient's floor/unit and/or counseling patient: Coding Level of Care Code 66561 SUB INP/OBS CARE 2/35MIN Diagnoses Acute respiratory failure with hypoxia J96.01 Simple chronic bronchitis J41.0 COPD type: chronic bronchitis Chronic bronchitis type: simple Elevated bilirubin R17 Type 2 diabetes mellitus with microalbuminuria E11.29; R80.9 Hypothyroidism E03.9 Hypertension I10 CAD (coronary artery disease) I25.10 Multifocal pneumonia J18.9 Time Spent (min) 35 (2) Chronic obstructive pulmonary disease COPD type: chronic bronchitis Chronic bronchitis type: simple Qualified Code(s): J41.0 - Simple chronic bronchitis
[2023-07-06] MEDS: cefTRIAXone SODIUM 2,000 MG in DEXTROSE 5 % MINI-B 50 ML IV SCH (21:14)
[2023-07-06] MEDS: ENOXAPARIN INJ 40 MG/0.4 ML SYR SQ SCH (21:15)
[2023-07-07 05:18] LABS: Basophils # (auto) 0.03 K/uL (0.00-0.20); Basophils % (auto) 0.2 %; Hematocrit (blood only) 45.2 % (42.0-52.0); Hemoglobin 14.5 g/dl (14.0-18.0); Immature Granulocytes # (auto) 0.09 K/uL (0.01-0.20); Immature Granulocytes % (auto) 0.6 %; Lymphocytes # (auto) 0.93 K/uL (1.20-3.40); Lymphocytes % (auto) 6.3 %; Mean Corpuscular Hemoglobin 29.2 pg (25.0-34.0); Mean Corpuscular Hgb Conc 32.1 g/dL (32.0-36.0); Mean Corpuscular Volume 90.9 fL (80.0-100.0); Mean Platelet Volume 10.2 fL (9.4-12.4); Monocytes # (auto) 0.77 K/uL (0.11-0.59); Monocytes % (auto) 5.2 %; Neutrophils # (auto) 12.98 K/uL (1.40-6.50); Neutrophils % (auto) 87.7 %; Platelet Count 327 K/uL (130-400); RDW Standard Deviation 42.9 fL (36.4-46.3); Red Blood Count 4.97 M/uL (4.70-6.10)
[2023-07-07 05:26] LABS: Albumin Globulin Ratio 1.2 (0.9-2); Albumin Level 3.4 gm/dl (3.4-5.0); BUN Creatinine Ratio 48.2 (10-20); Bilirubin,Total 0.4 mg/dl (0.2-1.0); Calcium 9.2 mg/dl (8.6-10.3); Est GFR (African American) 112.4 ml/min; Globulin 2.8 gm/dl (2.5-4.0); Magnesium 2.2 mg/dl (1.7-2.4); Potassium 4.7 mmol/L (3.5-5.1); Total Protein 6.2 gm/dl (6.0-8.3)
[2023-07-07] MEDS: LEVOTHYROXINE SODIUM 88 MCG TABLET PO SCH (05:46)
[2023-07-07] MEDS: methylPREDNISolone 60 MG in SYRINGE 0 ML IV SCH (05:46)
[2023-07-07] MEDS: FORMOTEROL 20 MCG/2 ML VIAL NEB SCH (07:36)
[2023-07-07] MEDS: BUDESONIDE 0.5 MG/2 ML VIAL (PULMICORT) NEB SCH (07:36)
[2023-07-07] MEDS: ALBUT/IPRATROP 3MG/0.5MG NEB 3 ML VIAL NEB SCH ×2 (07:37→10:07)
[2023-07-07] MEDS: guaiFENesin 600 MG TABCR PO SCH (08:32)
[2023-07-07] MEDS: ASPIRIN 81 MG ECTAB PO SCH (08:32)
[2023-07-07] MEDS: LOSARTAN POTASSIUM 25 MG TAB PO SCH (08:32)
[2023-07-07] MEDS: AZELASTINE HCL 0.1% NASAL 200 SPRAYS/27,400 MCG BTL SCH (08:32)
[2023-07-07] MEDS: INSULIN ASPART PER UNIT CHARGE SC SCH ×2 (08:32→13:04)
[2023-07-07] MEDS: LANTUS PER UNIT CHARGE SC SCH (08:33)
--- NOTE | 2023-07-07 11:33 | Discharge Summary ---
Date of Service July 07, 2023 Admission HPI Per Admitting Provider Antonio Seymour is an 82-year-old male with a past medical history of severe COPD, chronic hypoxic respiratory failure (supposed to use 2L NC at all times per last Pulm Note on 04/27/23), previous tobacco use (quite ~ 1 yr ago), type II DM, hyperlipidemia, and hypothyroidism who presented to the [facility] ED on 07/04/23 with a chief complaint of progressive SOB over the past month. He was noted to be hypoxic at 84% on RA, tachycardic at 116, but otherwise stable. Labs were significant for a VBG pH of 7.32 (on RA), pCO2 of 55, pO2 of 22, WBC of 14 with neutrophil predominance of 12, lymphocyte count of 0.89, calcium of 10.4, total bili of 1.4, negative procal, and full respiratory biofire negative. Chest xray was read as Interval development of bibasilar ulcers opacities which may represent atelectasis, aspiration, and/or pneumonia. Shortly after arrival the patient was placed on Bipap at IPAP of 12 and EPAP of 5 and was given 10 mg IV dexamethasone, an hour long duoneb treatment, 1gm IV mag/sulfate, and a dose of cefepime. At the time of the exam the patient was sitting in bed in no acute distress, currently comfortable on bipap. He states that he has been experiencing progressive SOB/BETTS compared to his baseline. His chronic cough has been much more frequent, he states it was constant over the past week. He has been producing larger amounts of sputum, it is always yellow. He has been using his home breathing treatment as prescribed without relief and has been using 1L NC at all times at home. He denies recent feve, chills, chest pain, hemoptysis, abd pain, nausea, vomiting, diarrhea, dysuria, hematuria, melena, LE swelling, and recent trauma. He confimrs that he is a DNR/DNI. His breathing feels significantly improved compared to ED arrival. Principal Diagnosis copd exacerbation Discharge Exam The patient is awake, alert and oriented 3, well developed and well nourished, normocephalic and atraumatic, lying in bed and in no acute distress. HEENT--PERRL, EOMI, mucous membranes and oropharynx mildly dry Neck--supple. No JVD. No bruits. Thyroid normal, trachea midline, no adenopathy. Heart--normal S1 and S2. No murmurs, rubs or gallops. Lungs--reduced air entry auscultation, bibasilar wheeze Abdomen--normal bowel sounds and soft. Mild epigastric and left sided abdominal pain Extremities--no cyanosis or clubbing. No edema. Dermatologic--normal skin turgor, normal color, no abnormal lymph nodes, no rash. Neurologic--cranial nerves II through XII grossly intact. Rheumatologic--normal range of motion. Psychiatric--normal affect. Discharge Data Allergies Allergy/AdvReac Type Severity Reaction Status Date / Time No Known Allergies Allergy Mild Verified 05/25/23 11:49 Consultations 07/04/23 11:07 ED Decision to Admit Stat Hospital Course (1) Acute respiratory failure with hypoxia: -Patient has a history of COPD, uses 2 L of oxygen at home -Admitted on account of worsening shortness of breath and wheeze - CXR consistent with multifocal pneumonia -Full respiratory biofire was negative -Likely multifocal pneumonia causing COPD exacerbation -Currently clinically much improved -Continue QIDR Duonebs -Continue Q12H Budesonide and formoterol Nebs -Incentive spirometry, flutter therapy, Q12H Guaifenesin -Continuous O2 to keep SpO2 between 89-92%, previously noted patient is supposed to use 2L NC at all times, has only been using 1L at home -Monitor sputum culture with gram stain when obtain (2) Chronic obstructive pulmonary disease: At home uses 2 L of oxygen at baseline Continue treatment as above (3) Elevated bilirubin: -Resolved s/p IVF (4) Type 2 diabetes mellitus with microalbuminuria: -Hold metformin and empagliflozin -Pharmacy glycemic consult placed for assistance with steroid treatment and likely hyperglycemia -Lantus 25U daily + Novolog ACHS with CF 20 -Blood glucose under good control (5) Hypothyroidism: -Continue levothyroxine (6) Hypertension: -Stable -Continue losartan (7) CAD (coronary artery disease): -Continue aspirin statin (8) Multifocal pneumonia: Plan Discharge home on steroid taper and azithromycin for 5 days DNR/DNI SCDs Lovenox Total Time Total Time Spent Total Time Spent (In Minutes): 35 Discharge Plan Discharge Items Patient Disposition: Home - Self-Care Reason For Visit: ACUTE RESPIRATORY FAILURE WITH HYPOXIA, MULTIFOCAL Discharge Diagnosis: PNA, COPd excaerbation Activity: Resume your previous activity Non-emergency contact: Primary Care Provider and [employer] Operator Call non-emergency contact if: you have any medication questions Follow-up/Referrals: Kimberlee Syed MD [Primary Care Provider] - 07/15/23 11:00 am (You will see Kacey Warren PA-C. ) Diet: Regular Addtl Attending Provider Instructions: please make appointment to follow up with your regular doctors Pending Studies at Discharge: No Stand-Alone Forms: My [facility] [id number], Smoking Cessation Medications and DC Order Prescriptions: New azithromycin 500 mg tablet 500 mg PO DAILY 5 Days Qty: 5 0RF prednisolone sodium phosphate 10 mg tablet,disintegrating 10 mg PO DAILY Qty: 20 0RF Rx Instructions: 40mg daily for 2 day, then 30mg daily for 2 days, then 20mg daily for 2 days, then 10mg daily for 2 days Continued levothyroxine 88 mcg tablet 88 mcg PO QAM Qty: 90 3RF albuterol sulfate 90 mcg/actuation HFA aerosol inhaler 2 inh inhalation QID PRN (Reason: shortness of breath or wheezing) Qty: 18 3RF ipratropium-albuterol 0.5 mg-3 mg(2.5 mg base)/3 mL solution for nebulization 3 ml inhalation Q4H PRN (Reason: shortness of breath or wheezing) Qty: 180 3RF Spiriva Respimat 2.5 mcg/actuation mist 2 puff inhalation DAILY Qty: 3 3RF azelastine 137 mcg (0.1 %) aerosol,spray 1 spray intranasal BID Qty: 30 3RF Rx Instructions: administer into each nostril empagliflozin 25 mg tablet 25 mg PO QAM Qty: 90 3RF (DME) OneTouch Ultra Test Strip See Rx Instructions .Route Qty: 200 3RF Rx Instructions: Test Twice per day as needed losartan 25 mg tablet 25 mg PO DAILY metformin 500 mg tablet extended release 24 hr 1,000 mg PO BID guaifenesin [Mucinex] 600 mg tablet extended release 12hr 0 mg PO Q12H Rx Instructions: Unable to verify OTC meds with patient/family at this date/time. aspirin 81 mg Tablet,Delayed Release (Dr/Ec) 0 mg PO QAM Rx Instructions: Unable to verify OTC meds with patient/family at this date/time. fluticasone propionate 50 mcg/actuation spray,suspension 0 spray NA QAM Rx Instructions: Unable to verify OTC meds with patient/family at this date/time. (DME) Oxygen Home Liters Per Minute See Rx Instructions .ROUTE .MEDSUPPLY Qty: 1 0RF Rx Instructions: 2 liters with activity/ambulation. Discharge Orders: Discharge Order (Routine); Ordered 07/07/23 Ordered By: Lynn Carnes Admission Data Admit Date/Time: 07/04/23 11:09 Attending Provider: Lynn Carnes Admit Provider: Julio Crow Primary Care Provider: Kimberlee Syed Other Providers: Julio Crow Other Interventions: Discharge Summary Assessment (RN) Last Done: 07/07/23 11:25 Coding Level of Care Code 44912 INP/OBS DISCH >30 MIN Diagnoses Acute respiratory failure with hypoxia J96.01 Simple chronic bronchitis J41.0 COPD type: chronic bronchitis Chronic bronchitis type: simple Elevated bilirubin R17 Type 2 diabetes mellitus with microalbuminuria E11.29; R80.9 Hypothyroidism E03.9 Hypertension I10 CAD (coronary artery disease) I25.10 Multifocal pneumonia J18.9 Time Spent (min) 35
[2023-07-07] MEDS: AZITHROMYCIN 500 MG in DEXTROSE 5% 250 ML IV SCH (11:34)
== END 2023-07-07 15:45 | disposition home or self-care (01) | DRG 193 ==
LOC: ED 09:45 → SUATTDRO 11:09 → EDINP 11:09 → 4W 12:11

== ENCOUNTER 2023-08-11 19:54 | Inpatient (IN) ==
[2023-08-11 21:13] LABS: Basophils # (auto) 0.08 K/uL (0.00-0.20); Basophils % (auto) 0.5 %; Eosinophils # (auto) 0.11 K/uL (0.00-0.50); Eosinophils % (auto) 0.7 %; Hematocrit (blood only) 47.8 % (42.0-52.0); Hemoglobin 15.7 g/dl (14.0-18.0); Immature Granulocytes # (auto) 0.13 K/uL (0.01-0.20); Immature Granulocytes % (auto) 0.9 %; Lymphocytes % (auto) 7.4 %; Mean Corpuscular Hemoglobin 29.5 pg (25.0-34.0); Mean Corpuscular Hgb Conc 32.8 g/dL (32.0-36.0); Mean Corpuscular Volume 89.7 fL (80.0-100.0); Mean Platelet Volume 10.3 fL (9.4-12.4); Monocytes # (auto) 1.53 K/uL (0.11-0.59); Monocytes % (auto) 10.3 %; Neutrophils # (auto) 11.87 K/uL (1.40-6.50); Neutrophils % (auto) 80.2 %; Platelet Count 270 K/uL (130-400); RDW Coefficient of Variation 14.4 % (11.5-14.5); RDW Standard Deviation 47.5 fL (36.4-46.3); Red Blood Count 5.33 M/uL (4.70-6.10); White Blood Count 14.82 K/ul (4.8-10.8)
[2023-08-11 21:27] LABS: Partial Thromboplastin Time 27 Seconds (21-31); Prothrombin Time 10.6 Seconds (9.0-12.0)
[2023-08-11 21:36] LABS: Albumin Level 4.3 gm/dl (3.4-5.0); Bilirubin,Total 0.7 mg/dl (0.2-1.0); Calcium 9.4 mg/dl (8.6-10.3)
[2023-08-11 21:42] LABS: Albumin Globulin Ratio 1.5 (0.9-2); BUN Creatinine Ratio 37.5 (10-20); Est GFR (African American) 97.1 ml/min; Est GFR (Non-African American) 83.8 ml/min; Globulin 2.8 gm/dl (2.5-4.0); Total Protein 7.1 gm/dl (6.0-8.3)
[2023-08-11 21:46] LABS: Troponin I High Sensitivity 10.2 pg/ml (0-20)
[2023-08-11 22:04] LABS: Influenza A virus by PCR Negative (Neg); Influenza B virus by PCR Negative (Neg); RSV by PCR Negative (Neg); SARS CoV2 RNA(COVID-19) Ceph NEGATIVE (Negative)
--- NOTE | 2023-08-11 22:57 | Emergency Department Note ---
Impression & Plan Pneumonia, Chronic obstructive pulmonary disease, Respiratory arrest ED Provider Note ED Provider Note NAME: KATHERYN TORREZ AGE:82 SEX: Male : 1940 ARRIVES VIA: Private vehicle INFORMANT: Patient ED PROVIDER(s): Sharona Bradley DO CHIEF COMPLAINT: Shortness of breath HPI: This is an 82-year-old male who presents emergency department due to concern for increased shortness of breath and concern for recurrent pneumonia. Patient states he had pneumonia 5 or 6 times in the last 2 years. Patient does have underlying COPD, uses MDI/nebulizers at home, and does wear home oxygen at 2 L/min. Patient denies any chest pain but states he has had increased shortness of breath and increased productive cough with change in color. He states he recognizes the symptoms are similar to prior episodes where he had pneumonia. He denies any nausea or vomiting, fevers or chills. He states he has had a mild sore throat, no other nasal congestion or rhinorrhea. Patient states due to his concern he checked his pulse ox at home and it was noted to be in the 70s while he was on his usual oxygen. Patient seen in A subwait. PAST MEDICAL HISTORY:See Below PAST SURGICAL HISTORY:See Below FAMILY HISTORY:See Below SOCIAL HISTORY:See Below HOME MEDICATIONS:See Below ALLERGIES:See Below VITALS:See Below PHYSICAL EXAMINATION: GENERAL: alert, well appearing, well nourished, no distress, non-toxic EYE EXAM: normal conjunctiva, PERRL and EOM's grossly intact OROPHARYNX: no exudate, no erythema, lips, buccal mucosa, and tongue normal and mucous membranes are moist NECK: supple, no nuchal rigidity, no adenopathy, non-tender LUNGS: Decreased bilateral to auscultation. Normal chest wall mechanics, no r/r, scattered expiratory wheeze, frequent coarse cough noted during exam HEART: no murmurs, S1 normal and S2 normal ABDOMEN: abdomen soft, non-tender, normo-active bowel sounds, no masses, no rebound or guarding. SKIN: no rashes, petechiae, orbruising UPPER EXTREMITIES: upper extremities are grossly normal. FROM, nml pulses b/l. LOWER EXTREMITIES: No pitting edema. FROM, nml pulses b/l. NEURO EXAM: Normal sensorium, cranial nerves II-XII grossly intact, normal speech, no facial droop,nogross weakness of arms, no gross weakness of legs. Gross sensation intact. No ataxia. Vital Signs: reviewed and remarkable Differential Diagnosis: pneumonia, bronchitis, COPD/Asthma exacerbation, pneumothorax, pulmonary embolism, congestive heart failure, acute coronary syndrome, as well as others were considered MEDICAL DECISION MAKING: This is an 82-year-old male with a long history of COPD who presents due to concern for recurrent pneumonia. Patient was afebrile vital signs stable on arrival. Coarse cough noted and diminished breath sounds on exam. Labs drawn and sent, IV established, chest x-ray performed bedside interpreted by me. Patient initially seen in a waiting room area. Patient given DuoNeb treatment here, IV antibiotics and IV Solu-Medrol after review of his prior history, hospitalizations, and consideration for age and comorbidities. Patient with moderate risk on curb 65 score. Given extensive pulmonary history I feel patient would be more appropriate for additional inpatient treatment at least initially to ensure he is improving. Case discussed with hospitalist team for additional evaluation and management. I do not suspect other cardiac etiology at this time including ACS or CHF. I below suspicion for occult PE. Patient's chest x-ray and CT were suggestive of pneumonia based on my evaluation. Consultation(s): 2330: Discussed with Dr. Obrien, [place] hospitalist, for additional evaluation. ER Treatment Provided: See below 0050: Amelia Richard called in patient room. Myself and several other staff members responded and nursing staff reported that patient had stood up to change into a gown as he was finally being placed in a regular patient room from a subwaiting room area when he suddenly appeared off, grabbed her arm, and collapsed in bed. Staff stated he appeared stiff and began to appear cyanotic. Upon arrival patient did have a pulse was tachycardic although blood pressure could not be obtained. Patient did not appear to be breathing adequately. RT presented to bedside and began assisting via [id number]. A nasal airway was placed additionally while preparations were made for intubation. Please see my intubation note for additional details. Due to concern for hypotension, additional IV fluids were started. Norepinephrine was also obtained in order to help augment the patient's blood pressure. Following intubation and follow-up chest x-ray, propofol added for sedation. Additional central access was obtained by Dr. Hercules and Morgan Brezovic, HELP DESK ANALYST. Orders placed for CT head as it was noted patient had a gaze deviation, diminished pupillary reflex and startle response. Patient has also been noted to be incontinent upon arrival initially in the room and so concern for possible intracranial hemorrhage versus seizure. Sedation as well as pressors had to be titrated to achieve improved vital signs. Upon obtaining this, patient taken to CT and then to intensive care unit. EKG had not yet been obtained as patient had not been in an area appropriate for exposure. EKG to be obtained upon transfer to ICU. Diagnostics Interpreted By Me: -Cardiac Monitoring: An order was placed for continuous cardiac monitoring. The monitor shows a rate of 78 with normal sinus rhythm. -Laboratory studies: As stated above and show below. -Imaging studies: X-ray Chest: A single view study of the chest was reviewed and was negative for cardiomegaly, effusion, pulmonary edema, or wide mediastinum. Evidence of evolving left-sided pneumonia Triage Nursing Note Reviewed Prior/Outside Records Reviewed Procedures: Endotracheal Intubation Indication respiratory failure and altered mental status. The patient was on 100% oxygen via NRB prior to the procedure. Suction, airway equipment, RSI drugs, respiratory equipment, and appropriate personnel were prepared prior to the initiation of the procedure. A time out was taken. Induction was performed with etomidate and succinylcholine. After observing the clinical benefit of the medications, the airway was easily visualized utilizing a Glidescope. A 7.5 size ETT tube was placed atraumatically to 26 cm using standard technique. The cuff inflated without signs of malfunction. There were bilateral breath sounds, positive colormetric change, no gastric sounds, a good capnography waveform, and post procedure pulse oximetry was 92%. Post intubation sedation and paralysis was administered using propofol. There were no complications. Critical Care: Critical care of 62 min performed to assess and manage high likelihood of life- threatening respiratory arrest, involving labs and imaging performed with assessment to evaluate respiratory arrest diagnosis with frequent reassessment. This time includes bedside time, treatment discussions with patient/family/consultants, documentation time and excludes procedure time. Past Med/Surg History Medical History Hypertension Chronic bronchitis Chronic obstructive pulmonary disease Type 2 diabetes mellitus with microalbuminuria Tobacco abuse Neck pain Abnormal chest CT Pneumonia Severe protein-calorie malnutrition Pneumonia Hyperlipidemia Hypersomnolence COPD with emphysema inhalers daily/prn, nebulizer prn COPD (chronic obstructive pulmonary disease) case management patient Acquired deviated nasal septum Actinic keratosis Chronic gout Frequent PVCs Hypothyroidism Incidental lung nodule, > 3mm and < 8mm Tobacco use Chronic diarrhea Surgical History Hx of vasectomy History of colonoscopy last 2018 History of Mohs micrographic surgery for skin cancer x3 History of wisdom tooth extraction History of bilateral cataract extraction History of appendectomy History of tonsillectomy Family History Other No family history of adverse response to anesthesia Denies family history of Ovarian cancer Prostate cancer Myocardial infarction Breast cancer Colorectal cancer Social History Smoking Status: Former smoker Tobacco Type: Cigarettes Cigarettes Per Day: 3 pack/day; Second Hand Exposure: No; Do You Dip or Chew Tobacco: No; Hx Alcohol Use: No Hx Substance Use: No Preferred Language: Spanish Communication Ability: Impaired Visual Impairment: No Limitations Hearing Ability: Normal [place] Required: No Beliefs That Will Affect Care: None marital status: Single Current Living Situation: Alone current occupational status: retired How many Children do You have: 1 Feels Safe at Home: Yes Dental Care, Regularly: Yes Physical Activity Frequency: 1-2 Times per Week Seatbelt Use: always Sunscreen Use: No Assistive Devices: Oxygen - Continuous Allergies Allergies Allergy/AdvReac Type Severity Reaction Status Date / Time No Known Allergies Allergy Mild Verified 08/11/23 23:53 Home Meds Home Medications Medication Instructions Recorded Confirmed losartan 25 mg tablet 25 mg PO DAILY 07/04/23 08/11/23 metformin 500 mg tablet,extended 1,000 mg PO BID 07/04/23 08/11/23 release 24 hr aspirin 81 mg tablet,delayed 81 mg PO QAM 07/08/23 08/11/23 release Previous Rx's Medication Instructions Recorded Oxygen Home E0424 #1 ea 05/19/22 levothyroxine 88 mcg tablet 88 mcg PO QAM #90 tabs 11/21/22 albuterol sulfate 90 mcg/actuation 2 inh inhalation QID PRN shortness 04/15/23 aerosol inhaler of breath or wheezing #18 grams ipratropium 0.5 mg-albuterol 3 mg 3 ml inhalation Q4H PRN shortness 05/11/23 (2.5 mg base)/3 mL nebulization of breath or wheezing #180 vials soln tiotropium bromide 2.5 2 puff inhalation DAILY #3 Inhalers 05/11/23 mcg/actuation mist for inhalation (Spiriva Respimat) blood sugar diagnostic (OneTouch #200 ea 06/09/23 Ultra Test strips) empagliflozin 25 mg tablet 25 mg PO QAM #90 tabs 06/09/23 azelastine 137 mcg (0.1 %) nasal 1 spray intranasal BID #30 mL 07/02/23 spray aerosol mometasone-formoterol HFA 200 2 puff inhalation BID #13 grams 07/10/23 mcg-5 mcg/actuation aerosol inhaler (Dulera) Results & Data (ED) Vital Signs Vital Signs - 24 hr 08/12/23 00:50 08/12/23 00:50 08/12/23 00:51 Pulse Rate 128 H 124 H Pulse Rate from SpO2 Sensor Respiratory Rate 29 H Blood Pressure Blood Pressure Mean 67 Pulse Oximetry Fraction of Inspired Oxygen End-Tidal CO2 08/12/23 00:52 08/12/23 00:52 08/12/23 01:00 Pulse Rate 121 H Pulse Rate from SpO2 Sensor 123 H Respiratory Rate 25 H Blood Pressure 158/68 H 57/43 L Blood Pressure Mean 97 49 Pulse Oximetry 74 L Fraction of Inspired Oxygen End-Tidal CO2 08/12/23 01:00 08/12/23 01:02 08/12/23 01:02 Pulse Rate 138 H 147 H Pulse Rate from SpO2 Sensor 136 H 143 H Respiratory Rate 10 L 24 Blood Pressure 59/33 L Blood Pressure Mean 39 Pulse Oximetry 89 L 89 L Fraction of Inspired Oxygen End-Tidal CO2 08/12/23 01:04 08/12/23 01:04 08/12/23 01:06 Pulse Rate 147 H Pulse Rate from SpO2 Sensor 139 H Respiratory Rate 16 Blood Pressure 59/38 L 52/34 L Blood Pressure Mean 49 39 Pulse Oximetry 95 Fraction of Inspired Oxygen End-Tidal CO2 08/12/23 01:06 08/12/23 01:10 08/12/23 01:10 Pulse Rate 123 H 134 H Pulse Rate from SpO2 Sensor 130 H 132 H Respiratory Rate 21 17 Blood Pressure 76/51 L Blood Pressure Mean 71 Pulse Oximetry 95 93 Fraction of Inspired Oxygen End-Tidal CO2 08/12/23 01:13 08/12/23 01:13 08/12/23 01:16 Pulse Rate 133 H 130 H Pulse Rate from SpO2 Sensor 129 H 129 H Respiratory Rate 22 23 Blood Pressure 80/54 L Blood Pressure Mean 59 Pulse Oximetry 95 100 Fraction of Inspired Oxygen End-Tidal CO2 08/12/23 01:16 08/12/23 01:22 08/12/23 01:22 Pulse Rate 127 H Pulse Rate from SpO2 Sensor 124 H Respiratory Rate 15 Blood Pressure 125/97 79/59 L Blood Pressure Mean 117 67 Pulse Oximetry 99 Fraction of Inspired Oxygen End-Tidal CO2 08/12/23 01:23 08/12/23 01:23 08/12/23 01:24 Pulse Rate 125 H 120 H Pulse Rate from SpO2 Sensor 124 H 120 H Respiratory Rate 20 11 L Blood Pressure 82/67 L Blood Pressure Mean 76 Pulse Oximetry 98 97 Fraction of Inspired Oxygen End-Tidal CO2 08/12/23 01:24 08/12/23 01:30 Pulse Rate 101 H Pulse Rate from SpO2 Sensor Respiratory Rate 22 Blood Pressure 102/71 Blood Pressure Mean 88 Pulse Oximetry 100 Fraction of Inspired Oxygen 40 End-Tidal CO2 36 Laboratory Data 08/12/23 03:39 08/12/23 03:39 Lab Results 08/11/23 08/11/23 08/11/23 Range/Units 20:53 20:53 20:53 WBC 14.82 H (4.8-10.8) K/ul RBC 5.33 (4.70-6.10) M/uL Hgb 15.7 (14.0-18.0) g/dl Hct 47.8 (42.0-52.0) % MCV 89.7 (80.0-100.0) fL MCH 29.5 (25.0-34.0) pg MCHC 32.8 (32.0-36.0) g/dL RDW Std Deviation 47.5 H (36.4-46.3) fL RDW Coeff of Samantha 14.4 (11.5-14.5) % Plt Count 270 (130-400) K/uL MPV 10.3 (9.4-12.4) fL Immature Gran % (Auto) 0.9 % Neut % (Auto) 80.2 % Lymph % (Auto) 7.4 % [place] % (Auto) 10.3 % Eos % (Auto) 0.7 % Baso % (Auto) 0.5 % Neut # (Auto) 11.87 H (1.40-6.50) K/uL Lymph # (Auto) 1.10 L (1.20-3.40) K/uL [place] # (Auto) 1.53 H (0.11-0.59) K/uL Eos # (Auto) 0.11 (0.00-0.50) K/uL Baso # (Auto) 0.08 (0.00-0.20) K/uL Immature Gran # (Auto) 0.13 (0.01-0.20) K/uL PT 10.6 (9.0-12.0) Seconds INR 1.0 (0.9-1.1) APTT 27 (21-31) Seconds PTT Ratio 1.0 VBG pH (7.36-7.41) VBG pCO2 (38-50) mmHg VBG pO2 mmHg VBG HCO3 mmol/L VBG O2 Saturation % VBG Base Excess mEq/L Sodium 136 (136-145) mmol/L Potassium 4.0 (3.5-5.1) mmol/L Chloride 104 (98-107) mmol/L Carbon Dioxide 23 (21-32) mmol/L Anion Gap 9 (3-11) BUN 30 H (6-23) mg/dl Creatinine 0.80 (0.6-1.4) mg/dl Est Cr Clr Drug Dosing 72.0 ml/min Est GFR ( Amer) 97.1 ml/min Est GFR (Non-Af Amer) 83.8 ml/min BUN/Creatinine Ratio 37.5 H (10-20) Glucose 164 H (70-99(Fasting)) mg/dl POC Glucose (70-99) mg/dl Lactate (0.4-2.0) mmol/L Calcium 9.4 (8.6-10.3) mg/dl Total Bilirubin 0.7 (0.2-1.0) mg/dl AST 19 (13-39) U/L ALT 25 (7-52) U/L Alkaline Phosphatase 58 (34-104) U/L Troponin I High Sens 10.2 (0-20) pg/ml Total Protein 7.1 (6.0-8.3) gm/dl Albumin 4.3 (3.4-5.0) gm/dl Globulin 2.8 (2.5-4.0) gm/dl Albumin/Globulin Ratio 1.5 (0.9-2) Procalcitonin 0.06 (0-0.5) ng/ml Adenovirus (PCR) Not Detected (NotDetected) B. pertussis DNA (PCR) Not Detected (NotDetected) B.parapertussis DNA PCR Not Detected (NotDetected) C. pneumoniae DNA (PCR) Not Detected (NotDetected) Coronavirus OC43 (PCR) Not Detected (NotDetected) Coronavirus HKU1 (PCR) Not Detected (NotDetected) Coronavirus 229E (PCR) Not Detected (NotDetected) SARS-CoV-2 (PCR) NEGATIVE Not Detected (Negative) Coronavirus NL63 (PCR) Not Detected (NotDetected) Human Metapneumovir PCR Not Detected (NotDetected) Influenza Type A (PCR) Negative Not Detected (Neg) Influenza Type B (PCR) Negative (Neg) M. pneumoniae (PCR) (NotDetected) Parainfluenza 1 (PCR) (NotDetected) Parainfluenza 2 (PCR) (NotDetected) Parainfluenza 3 (PCR) (NotDetected) Parainfluenza 4 (PCR) (NotDetected) RSV (RT-PCR) (Neg) RSV (PCR) (NotDetected) Entero/Rhino (PCR) (NotDetected) 08/11/23 08/11/23 08/12/23 Range/Units 20:53 23:34 00:51 WBC (4.8-10.8) K/ul RBC (4.70-6.10) M/uL Hgb (14.0-18.0) g/dl Hct (42.0-52.0) % MCV (80.0-100.0) fL MCH (25.0-34.0) pg MCHC (32.0-36.0) g/dL RDW Std Deviation (36.4-46.3) fL RDW Coeff of Samantha (11.5-14.5) % Plt Count (130-400) K/uL MPV (9.4-12.4) fL Immature Gran % (Auto) % Neut % (Auto) % Lymph % (Auto) % [place] % (Auto) % Eos % (Auto) % Baso % (Auto) % Neut # (Auto) (1.40-6.50) K/uL Lymph # (Auto) (1.20-3.40) K/uL [place] # (Auto) (0.11-0.59) K/uL Eos # (Auto) (0.00-0.50) K/uL Baso # (Auto) (0.00-0.20) K/uL Immature Gran # (Auto) (0.01-0.20) K/uL PT (9.0-12.0) Seconds INR (0.9-1.1) APTT (21-31) Seconds PTT Ratio VBG pH 7.32 L (7.36-7.41) VBG pCO2 53 H (38-50) mmHg VBG pO2 < 20 mmHg VBG HCO3 27 mmol/L VBG O2 Saturation < 60.0 % VBG Base Excess 0.3 mEq/L Sodium (136-145) mmol/L Potassium (3.5-5.1) mmol/L Chloride (98-107) mmol/L Carbon Dioxide (21-32) mmol/L Anion Gap (3-11) BUN (6-23) mg/dl Creatinine (0.6-1.4) mg/dl Est Cr Clr Drug Dosing ml/min Est GFR ( Amer) ml/min Est GFR (Non-Af Amer) ml/min BUN/Creatinine Ratio (10-20) Glucose (70-99(Fasting)) mg/dl POC Glucose 192 H (70-99) mg/dl Lactate 1.2 (0.4-2.0) mmol/L Calcium (8.6-10.3) mg/dl Total Bilirubin (0.2-1.0) mg/dl AST (13-39) U/L ALT (7-52) U/L Alkaline Phosphatase (34-104) U/L Troponin I High Sens (0-20) pg/ml Total Protein (6.0-8.3) gm/dl Albumin (3.4-5.0) gm/dl Globulin (2.5-4.0) gm/dl Albumin/Globulin Ratio (0.9-2) Procalcitonin (0-0.5) ng/ml Adenovirus (PCR) (NotDetected) B. pertussis DNA (PCR) (NotDetected) B.parapertussis DNA PCR (NotDetected) C. pneumoniae DNA (PCR) (NotDetected) Coronavirus OC43 (PCR) (NotDetected) Coronavirus HKU1 (PCR) (NotDetected) Coronavirus 229E (PCR) (NotDetected) SARS-CoV-2 (PCR) (Negative) Coronavirus NL63 (PCR) (NotDetected) Human Metapneumovir PCR (NotDetected) Influenza Type A (PCR) (Neg) Influenza Type B (PCR) Not Detected (Neg) M. pneumoniae (PCR) Not Detected (NotDetected) Parainfluenza 1 (PCR) Not Detected (NotDetected) Parainfluenza 2 (PCR) Not Detected (NotDetected) Parainfluenza 3 (PCR) Not Detected (NotDetected) Parainfluenza 4 (PCR) Not Detected (NotDetected) RSV (RT-PCR) Negative (Neg) RSV (PCR) Not Detected (NotDetected) Entero/Rhino (PCR) Not Detected (NotDetected) Administered Medications Albuterol (Albut/Ipratrop 3mg/0.5mg Neb 3 Ml Vial) 3 ml NEB Q6R [facility]; Protocol Stop: 09/11/23 06:59 Last Admin: 08/12/23 19:12 Dose: Not Given Documented By: Admin: 08/12/23 13:25 Dose: 3 ml Documented By: Admin: 08/12/23 07:52 Dose: 3 ml Documented By: ALESSANDRA Budesonide (Budesonide 0.25 Mg/2 Ml Vial (Pulmicort)) 0.5 mg NEB BIDR [facility] Stop: 09/11/23 18:59 Last Admin: 08/12/23 19:11 Dose: 0.5 mg Documented By: JAYE Enoxaparin Sodium (Enoxaparin Inj 40 Mg/0.4 Ml Syr) 40 mg SQ Q24H [facility] Stop: 09/11/23 08:59 Last Admin: 08/12/23 08:25 Dose: 40 mg Documented By: ES Formoterol Fumarate (Formoterol 20 Mcg/2 Ml Vial) 20 mcg NEB BIDR [facility] Stop: 09/11/23 08:59 Last Admin: 08/12/23 19:11 Dose: 20 mcg Documented By: Admin: 08/12/23 11:30 Dose: 20 mcg Documented By: CRG Propofol (Diprivan) 1,000 mg in 100 mls @ 12 mls/hr IV .Q8H20M [facility]; Protocol Stop: 08/15/23 02:14 Last Admin: 08/12/23 22:42 Dose: Not Given Documented By: Titration: 08/12/23 22:16 Dose: 25 mcg/kg/min, 12 mls/hr Documented By: Admin: 08/12/23 21:23 Dose: Not Given Documented By: Titration: 08/12/23 20:55 Dose: 20 mcg/kg/min, 9.6 mls/hr Documented By: Admin: 08/12/23 20:05 Dose: 25 mcg/kg/min, 12 mls/hr Documented By: MNM Co-signed By: PAH Titration: 08/12/23 20:05 Dose: Infused Documented By: MNM Co-signed By: PAH Titration: 08/12/23 19:05 Dose: 25 mcg/kg/min, 12 mls/hr Documented By: MNM Co-signed By: ES Admin: 08/12/23 18:01 Dose: Not Given Documented By: Titration: 08/12/23 17:56 Dose: 25 mcg/kg/min, 12 mls/hr Documented By: Admin: 08/12/23 12:51 Dose: 30 mcg/kg/min, 14.4 mls/hr Documented By: ES Co-signed By: NMS Titration: 08/12/23 12:51 Dose: Infused Documented By: ES Co-signed By: NMS Admin: 08/12/23 10:42 Dose: Not Given Documented By: Admin: 08/12/23 10:42 Dose: Not Given Documented By: Titration: 08/12/23 10:00 Dose: 30 mcg/kg/min, 14.4 mls/hr Documented By: Admin: 08/12/23 08:25 Dose: 40 mcg/kg/min, 19.2 mls/hr Documented By: ES Co-signed By: TMG Titration: 08/12/23 08:25 Dose: Infused Documented By: ES Co-signed By: TMG Titration: 08/12/23 07:04 Dose: 45 mcg/kg/min, 21.6 mls/hr Documented By: CP Co-signed By: ES Titration: 08/12/23 06:00 Dose: 45 mcg/kg/min, 21.6 mls/hr Documented By: Admin: 08/12/23 04:03 Dose: 50 mcg/kg/min, 24 mls/hr Documented By: MMG Co-signed By: PUNEET Fentanyl Citrate (Fentanyl Citrate) 2,500 mcg in 250 mls @ 10 mls/hr IV .Q25H [facility]; Protocol Stop: 08/26/23 02:14 Last Titration: 08/12/23 19:05 Dose: 100 mcg/hr, 10 mls/hr Documented By: MNM Co-signed By: ES Admin: 08/12/23 17:52 Dose: 100 mcg/hr, 10 mls/hr Documented By: ES Co-signed By: CB Titration: 08/12/23 17:52 Dose: Infused Documented By: ES Co-signed By: CB Titration: 08/12/23 07:04 Dose: 100 mcg/hr, 10 mls/hr Documented By: CP Co-signed By: ES Titration: 08/12/23 06:35 Dose: 100 mcg/hr, 10 mls/hr Documented By: MMG Co-signed By: CP Titration: 08/12/23 06:00 Dose: 150 mcg/hr, 15 mls/hr Documented By: MMG Co-signed By: CP Titration: 08/12/23 04:00 Dose: 200 mcg/hr, 20 mls/hr Documented By: MMG Co-signed By: CP Titration: 08/12/23 03:30 Dose: 150 mcg/hr, 15 mls/hr Documented By: MMG Co-signed By: CP Titration: 08/12/23 03:00 Dose: 100 mcg/hr, 10 mls/hr Documented By: MMG Co-signed By: CP Admin: 08/12/23 02:30 Dose: 75 mcg/hr, 7.5 mls/hr Documented By: MARTIN Co-signed By: CP Methylprednisolone 40 mg/ (Syringe) 0.64 mls @ 1.5 mls/min IV Q8H [facility] Stop: 09/11/23 05:59 Last Admin: 08/12/23 21:04 Dose: 1.5 mls/min Documented By: Admin: 08/12/23 12:40 Dose: 1.5 mls/min Documented By: Admin: 08/12/23 05:58 Dose: 1.5 mls/min Documented By: MARTIN Cefepime HCl 2,000 mg/ Syringe 20 mls @ 5 mls/min IV Q8H [facility]; Protocol Stop: 08/19/23 05:59 Last Admin: 08/12/23 22:42 Dose: 5 mls/min Documented By: Admin: 08/12/23 12:40 Dose: 5 mls/min Documented By: Admin: 08/12/23 05:58 Dose: 5 mls/min Documented By: MARTIN Insulin Human Regular 250 (units/ Sodium Chloride) 250 mls @ 3.6 mls/hr IV .Q24H [facility]; Protocol Stop: 09/11/23 05:14 Last Titration: 08/12/23 22:00 Dose: 3.6 units/hr, 3.6 mls/hr Documented By: MAGDALENE Co-signed By: LLP Titration: 08/12/23 20:00 Dose: 3.6 units/hr, 3.6 mls/hr Documented By: MNJarred Co-signed By: JT Titration: 08/12/23 19:05 Dose: 3.6 units/hr, 3.6 mls/hr Documented By: MNJarred Co-signed By: NATANAEL Titration: 08/12/23 17:56 Dose: 3.6 units/hr, 3.6 mls/hr Documented By: NATANAEL Co-signed By: CB Titration: 08/12/23 15:00 Dose: 3.6 units/hr, 3.6 mls/hr Documented By: NATANAEL Co-signed By: CB Titration: 08/12/23 12:50 Dose: 3.6 units/hr, 3.6 mls/hr Documented By: NATANAEL Co-signed By: NMS Titration: 08/12/23 11:08 Dose: 3.6 units/hr, 3.6 mls/hr Documented By: NATANAEL Co-signed By: SOWMYA Titration: 08/12/23 10:00 Dose: 3.6 units/hr, 3.6 mls/hr Documented By: NATANAEL Co-signed By: TMG Titration: 08/12/23 08:27 Dose: 3.6 units/hr, 3.6 mls/hr Documented By: NATANAEL Co-signed By: TMG Titration: 08/12/23 07:30 Dose: 3 units/hr, 3 mls/hr Documented By: NATANAEL Co-signed By: TMG Titration: 08/12/23 07:04 Dose: 3 units/hr, 3 mls/hr Documented By: PUNEET Co-signed By: NATANAEL Admin: 08/12/23 05:58 Dose: 3 units/hr, 3 mls/hr Documented By: MMG Co-signed By: PUNEET Pantoprazole Sodium 40 mg/ (Syringe) 10 mls @ 5 mls/min IV DAILY@1100 [facility] Stop: 09/11/23 10:59 Last Admin: 08/12/23 10:53 Dose: 5 mls/min Documented By: NATANAEL Norepinephrine Bitartrate (Levophed/D5w) 4 mg in 250 mls @ 25.41 mls/hr IV .Q9H51M [facility]; Protocol Stop: 09/11/23 15:14 Last Titration: 08/12/23 23:00 Dose: 0.08 mcg/kg/min, 25.4 mls/hr Documented By: Titration: 08/12/23 22:15 Dose: 0.1 mcg/kg/min, 31.8 mls/hr Documented By: Admin: 08/12/23 21:02 Dose: 0.12 mcg/kg/min, 38.1 mls/hr Documented By: MNM Co-signed By: DTT Titration: 08/12/23 21:02 Dose: Infused Documented By: MNJarred Co-signed By: DTT Titration: 08/12/23 20:55 Dose: 0.1 mcg/kg/min, 31.8 mls/hr Documented By: Titration: 08/12/23 19:05 Dose: 0.12 mcg/kg/min, 38.1 mls/hr Documented By: MNJarred Co-signed By: NATANAEL Admin: 08/12/23 18:01 Dose: Not Given Documented By: Admin: 08/12/23 15:16 Dose: 0.14 mcg/kg/min, 44.5 mls/hr Documented By: NATANAEL Co-signed By: NARDA Insulin Aspart (Insulin Aspart Per Unit Charge) 0 units SC ACHS [facility] Stop: 09/11/23 07:29 Last Admin: 08/12/23 20:23 Dose: Not Given Documented By: Admin: 08/12/23 12:33 Dose: Not Given Documented By: Admin: 08/12/23 08:26 Dose: Not Given Documented By: Admin: 08/12/23 08:21 Dose: Not Given Documented By: NATANAEL Levothyroxine Sodium (Levothyroxine Sodium 88 Mcg Tablet) 88 mcg PO DAILYBB [facility] Stop: 09/11/23 06:29 Last Admin: 08/12/23 06:33 Dose: Not Given Documented By: MARTINEZG Miscellaneous (Icu Electrolyte Replacement Protocol) 1 each N/A BID@ [facility]; Protocol Stop: 08/19/23 17:59 Last Admin: 08/12/23 14:58 Dose: Not Given Documented By: NATANAEL Propofol (Propofol Bolus From Bag) 20 mg IV Q5M PRN PRN Reason: Sedation Stop: 08/15/23 02:07 Last Admin: 08/12/23 21:29 Dose: 20 mg Documented By: MAGDALENE Co-signed By: JT Discontinued Medications Azelastine HCl (Azelastine Hcl 0.1% Nasal 200 Sprays/27,400 Mcg Btl) 1 sprays KEENAN BID [facility] Stop: 09/11/23 08:59 Last Admin: 08/12/23 08:21 Dose: Not Given Documented By: NATANAEL Budesonide (Budesonide 0.25 Mg/2 Ml Vial (Pulmicort)) 0.25 mg NEB BIDR [facility] Stop: 09/11/23 06:59 Last Admin: 08/12/23 07:52 Dose: 0.25 mg Documented By: ALESSANDRA Fentanyl Citrate (Fentanyl Citrate 2,500 Mcg/250 Ml Bag) Confirm Administered Dose 2,500 mcg IV .STK-MED ONE Stop: 08/12/23 02:10 Last Admin: 08/12/23 03:36 Dose: Not Given Documented By: MMG Cefepime HCl (Maxipime) 2,000 mg in 20 mls @ 5 mls/min IV NOW STA; Protocol Stop: 08/11/23 22:53 Last Admin: 08/12/23 00:38 Dose: 5 mls/min Documented By: ACC Azithromycin 500 mg/ Dextrose 255 mls @ 125 mls/hr IV NOW ONE Stop: 08/12/23 00:52 Last Infusion: 08/12/23 04:19 Dose: Infused Documented By: Admin: 08/12/23 00:38 Dose: 125 mls/hr Documented By: ACC Sodium Chloride (Nss) 1,000 mls @ 125 mls/hr IV .Q8H [facility] Stop: 09/10/23 22:59 Last Infusion: 08/12/23 04:20 Dose: Infused Documented By: Admin: 08/12/23 00:38 Dose: 125 mls/hr Documented By: ACC Phenylephrine HCl (Phenylephrine/Nss) 25 mg in 250 mls @ 24 mls/hr IV .[id number] [facility]; Protocol Stop: 09/11/23 01:14 Last Admin: 08/12/23 04:18 Dose: Not Given Documented By: CP Vasopressin 20 units/ Sodium (Chloride) 101 mls @ 12.12 mls/hr IV .Q8H20M [facility] Stop: 09/11/23 01:59 Last Admin: 08/12/23 08:21 Dose: Not Given Documented By: Admin: 08/12/23 03:37 Dose: Not Given Documented By: MMG Lactated Ringer's (Lr) 500 mls @ 999 mls/hr IV .Q31M ONE Stop: 08/12/23 02:24 Last Admin: 08/12/23 03:31 Dose: Not Given Documented By: MMG Norepinephrine Bitartrate (Levophed/D5w) 32 mg in 250 mls @ 8.25 mls/hr IV .Q24H [facility]; Protocol Stop: 09/11/23 01:59 Last Titration: 08/12/23 15:18 Dose: Infused Documented By: Titration: 08/12/23 11:07 Dose: 0.22 mcg/kg/min, 8.3 mls/hr Documented By: Titration: 08/12/23 10:30 Dose: 0.26 mcg/kg/min, 9.8 mls/hr Documented By: Titration: 08/12/23 07:04 Dose: 0.3 mcg/kg/min, 11.3 mls/hr Documented By: PUNEET Co-signed By: ES Titration: 08/12/23 06:37 Dose: 0.3 mcg/kg/min, 11.3 mls/hr Documented By: Titration: 08/12/23 06:36 Dose: 0.3 mcg/kg/min, 11.3 mls/hr Documented By: Titration: 08/12/23 04:30 Dose: 0.35 mcg/kg/min, 13.1 mls/hr Documented By: Titration: 08/12/23 04:00 Dose: 0.4 mcg/kg/min, 15 mls/hr Documented By: Titration: 08/12/23 03:30 Dose: 0.45 mcg/kg/min, 16.9 mls/hr Documented By: Titration: 08/12/23 03:00 Dose: 0.5 mcg/kg/min, 18.8 mls/hr Documented By: Admin: 08/12/23 02:30 Dose: 0.6 mcg/kg/min, 22.5 mls/hr Documented By: MARTIN Co-signed By: PUNEET Magnesium Sulfate/Dextrose (Magnesium Sulfate / D5w) 1 gm in 100 mls @ 50 mls/hr IV Q2H [facility] Stop: 08/12/23 08:44 Last Infusion: 08/12/23 10:00 Dose: Infused Documented By: Admin: 08/12/23 06:51 Dose: 50 mls/hr Documented By: Infusion: 08/12/23 06:51 Dose: Infused Documented By: Admin: 08/12/23 05:01 Dose: 50 mls/hr Documented By: PUNEET Lactated Ringer's (Lr) 500 mls @ 999 mls/hr IV .Q31M ONE Stop: 08/12/23 05:34 Last Infusion: 08/12/23 06:49 Dose: Infused Documented By: Admin: 08/12/23 05:57 Dose: 999 mls/hr Documented By: MARTIN Calcium Chloride 1,000 mg/ (Dextrose) 60 mls @ 240 mls/hr IV NOW STA Stop: 08/12/23 09:04 Last Infusion: 08/12/23 10:00 Dose: Infused Documented By: Admin: 08/12/23 09:29 Dose: 240 mls/hr Documented By: NATANAEL Insulin Human Regular (Novolin-R Bolus From Bag) 3 units IV ONE ONE Stop: 08/12/23 05:31 Last Admin: 08/12/23 05:59 Dose: 3 units Documented By: MARTIN Co-signed By: PUNEET Ioversol (Optiray 320 500ml) 100 ml IV ONCE ONE Stop: 08/11/23 23:14 Last Admin: 08/11/23 23:13 Dose: 84 ml Documented By: HERNAN Ioversol (Optiray 320 125ml) 125 ml IV ONCE ONE Stop: 08/12/23 05:46 Last Admin: 08/12/23 05:45 Dose: 115 ml Documented By: HERNAN Methylprednisolone (Methylprednisolone 125 Mg/2 Ml Vial) 60 mg IV NOW STA Stop: 08/11/23 22:51 Last Admin: 08/12/23 00:38 Dose: 60 mg Documented By: RYLEE Midazolam HCl (Midazolam Hcl 5 Mg/Ml 2ml Vial) Confirm Administered Dose 10 mg .ROUTE .STK-MED ONE Stop: 08/12/23 02:43 Last Increment: 08/12/23 02:44 Dose: 5 mg Documented By: PUNEET Midazolam HCl (Midazolam Hcl 5 Mg/Ml 2ml Vial) 5 mg IV NOW STA Stop: 08/12/23 02:44 Last Admin: 08/12/23 03:39 Dose: Not Given Documented By: MARTIN Miscellaneous (Rapid Sequence Induction Bag) Confirm Administered Dose 1 each N/A .STK-MED ONE Stop: 08/12/23 00:52 Last Admin: 08/12/23 03:15 Dose: Not Given Documented By: MARTIN Norepinephrine Bitartrate (Norepinephrine/D5w 4 Mg/250 Ml) Confirm Administered Dose 4 mg IV .STK-MED ONE Stop: 08/12/23 01:02 Last Admin: 08/12/23 03:16 Dose: Not Given Documented By: MMJoseph Norepinephrine Bitartrate (Norepinephrine/D5w 4 Mg/250 Ml) Confirm Administered Dose 4 mg IV .STK-MED ONE Stop: 08/12/23 01:02 Last Admin: 08/12/23 03:16 Dose: Not Given Documented By: MMG Norepinephrine Bitartrate (Norepinephrine/D5w 4 Mg/250 Ml) Confirm Administered Dose 4 mg IV .STK-MED ONE Stop: 08/12/23 02:04 Last Admin: 08/12/23 03:34 Dose: Not Given Documented By: MMG Norepinephrine Bitartrate (Norepinephrine/D5w 4 Mg/250 Ml) Confirm Administered Dose 4 mg IV .STK-MED ONE Stop: 08/12/23 02:56 Last Admin: 08/12/23 03:39 Dose: Not Given Documented By: MMG Propofol (Propofol Iv Emulsion 10 Mg/Ml 100 Ml Vial) Confirm Administered Dose 1,000 mg IV .STK-MED ONE Stop: 08/12/23 00:58 Last Admin: 08/12/23 03:16 Dose: Not Given Documented By: MMG Sodium Bicarbonate (Sodium Bicarb 8.4% Inj 50 Meq/50 Ml Syr) Confirm Administered Dose 50 meq IV .STK-MED ONE Stop: 08/12/23 02:09 Last Admin: 08/12/23 03:35 Dose: Not Given Documented By: MMG Sodium Bicarbonate (Sodium Bicarb 8.4% Inj 50 Meq/50 Ml Syr) 100 meq IV NOW STA Stop: 08/12/23 02:09 Last Admin: 08/12/23 02:00 Dose: 100 meq Documented By: MMG Sodium Bicarbonate (Sodium Bicarb 8.4% Inj 50 Meq/50 Ml Syr) Confirm Administered Dose 100 meq IV .STK-MED ONE Stop: 08/12/23 02:12 Last Admin: 08/12/23 03:36 Dose: Not Given Documented By: MMG Sodium Bicarbonate (Sodium Bicarb 8.4% Inj 50 Meq/50 Ml Syr) 50 meq IV NOW STA Stop: 08/12/23 11:40 Last Admin: 08/12/23 12:37 Dose: 50 meq Documented By: ES Vecuronium Comstock (Vecuronium Comstock 10 Mg Vial) 8 mg IV ONCE STA Stop: 08/12/23 03:17 Last Admin: 08/12/23 03:22 Dose: 8 mg Documented By: MMG Co-signed By: CP Vecuronium Comstock (Vecuronium Comstock 10 Mg Vial) Confirm Administered Dose 10 mg IV .STK-MED ONE Stop: 08/12/23 03:18 Last Admin: 08/12/23 03:40 Dose: Not Given Documented By: MMG Imaging Data Radiologist's Impression: Chest CT 08/11/23 23:04 Exam(s): CT CHEST With Contrast IV Amt: 84 ml optiray 320 EXAM: CT Chest With Intravenous Contrast CLINICAL HISTORY: Reason for exam: pneumonia, copd, hx recurrent pna. TECHNIQUE: Axial computed tomography images of the chest with intravenous contrast. Automated exposure control was utilized for the study. A dose lowering technique was utilized adhering to the principles of ALARA. CONTRAST: Patient received 84 ml optiray 320 of IV contrast COMPARISON: No relevant prior studies available. FINDINGS: Lungs: Moderate centrilobular emphysema. Atelectasis at the lung bases. No pneumonia or pneumothorax. No pleural effusion. No mass. Pleural space: See above. Heart: Unremarkable. No cardiomegaly. No significant pericardial effusion. No significant coronary artery calcifications. Bones/joints: Degenerative changes of the spine. No acute fracture. No dislocation. Soft tissues: Unremarkable. Vasculature: Atherosclerotic changes of the aorta. No thoracic aortic aneurysm. Lymph nodes: Unremarkable. No enlarged lymph nodes. Liver: Hepatic steatosis. IMPRESSION: Moderate centrilobular emphysema. Atelectasis at the lung bases. No pneumonia or pneumothorax. No pleural effusion. Electronically signed by: Josiah Tejada MD 08/11/23 23:43 PM Discharge Plan Visit Data Chief Complaint: Illness Stated Complaint: OXYGEN LEVEL LOW, 70-74 ED Provider: Sharona Bradley Discharge Problem: Pneumonia, Chronic obstructive pulmonary disease, Respiratory arrest Patient Disposition: Admitted As Inpatient Discharge Instructions Interventions: ED Discharge Assessment Last Done: 08/12/23 04:00
[2023-08-11] MEDS: OPTIRAY 320 500ml IV ONE (23:13)
--- NOTE | 2023-08-11 23:44 | CT Scan Report ---
Exam(s): CT CHEST With Contrast IV Amt: 84 ml optiray 320 EXAM: CT Chest With Intravenous Contrast CLINICAL HISTORY: Reason for exam: pneumonia, copd, hx recurrent pna. TECHNIQUE: Axial computed tomography images of the chest with intravenous contrast. Automated exposure control was utilized for the study. A dose lowering technique was utilized adhering to the principles of ALARA. CONTRAST: Patient received 84 ml optiray 320 of IV contrast COMPARISON: No relevant prior studies available. FINDINGS: Lungs: Moderate centrilobular emphysema. Atelectasis at the lung bases. No pneumonia or pneumothorax. No pleural effusion. No mass. Pleural space: See above. Heart: Unremarkable. No cardiomegaly. No significant pericardial effusion. No significant coronary artery calcifications. Bones/joints: Degenerative changes of the spine. No acute fracture. No dislocation. Soft tissues: Unremarkable. Vasculature: Atherosclerotic changes of the aorta. No thoracic aortic aneurysm. Lymph nodes: Unremarkable. No enlarged lymph nodes. Liver: Hepatic steatosis. IMPRESSION: Moderate centrilobular emphysema. Atelectasis at the lung bases. No pneumonia or pneumothorax. No pleural effusion. Electronically signed by: Josiah Tejada MD 08/11/23 23:43 PM
[2023-08-11 23:47] LABS: Base Excess VBG 0.3 mEq/L; HCO3 VBG 27 mmol/L; Oxygen Saturation VBG < 60.0 %; PCO2 VBG 53 mmHg (38-50); PO2 VBG < 20 mmHg; pH VBG 7.32 (7.36-7.41)
--- NOTE | 2023-08-11 23:53 | History & Physical Report ---
Date of Service August 11, 2023 Assessment & Plan (1) Required emergent intubation: (2) Respiratory failure: (3) Multifocal pneumonia: (4) CAD (coronary artery disease): (5) Hypertension: (6) Acute respiratory failure with hypoxia: (7) Chronic obstructive pulmonary disease: (8) Type 2 diabetes mellitus with microalbuminuria: Plan Acute respiratory failure with hypoxia/admitted to ICU/required emergent intubation in the ED- MRSA swab Cefepime 2 g IV every 12 hours Azithromycin 500 mg IV daily Methylprednisolone 40 mg IV every 8 hours Duonebs every 4 hours while awake and every 2 hours when necessary. Adjustment of ventilator per ICU team Patient is negative for COVID 19/influenza A and B, and RSV Diabetes mellitus- ICU hyperglycemic protocol Possible low-grade bowel obstruction Due to right inguinal hernia containing a small bowel loop as noted on CT NG tube to low intermittent suction Follow serial examinations History of Present Illness Chief Complaint: The patient initially presented to the emergency department due to increasing shortness of breath, dyspnea on exertion with productive cough, and concerned that he may be having recurrent pneumonia, as he was admitted from 07/04-06/10. Primary Care Provider: Kimberlee Syed MD The patient is an 82-year-old male with a past medical history including tobacco use disorder, CAD, hypertension, chronic bronchitis, chronic COPD, diabetes mellitus with microalbuminuria, BPH, severe COPD, hyperlipidemia and dysphagia. He was most recently admitted to [facility] from 07/04-07/07/2023 for pneumonia. Workup in the emergency department included negative testing for COVID, influenza a and B and RSV. Laboratories were primarily abnormal related to a glucose of 164. CT scan of the chest was suggestive of a multifocal pneumonia, left greater than right. The patient had been given azithromycin 5 mg IV, cefepime 2 g IV, Solu-Medrol 60 mg IV and normal saline at 125 MLS per hour by the emergency department, with plans to continue the cefepime, azithromycin and methylprednisolone 40 mg IV every 8 hours. He was changed to normal saline plus KCl 20 mill equivalents at 80 mL/h x 1 L. However, shortly after he was moved to room a floor in the emergency department he became unresponsive, was intubated, and patient was admitted to the ICU for ongoing care. En route to the ICU, patient had CT scan of head which was negative for acute event. A CT scan of abdomen and pelvis at that time showed a possible low-grade bowel obstruction due to a herniated small bowel loop within a right inguinal hernia. Allergies Allergy/AdvReac Type Severity Reaction Status Date / Time No Known Allergies Allergy Mild Verified 08/11/23 23:53 Home Medications Medication Instructions Recorded Confirmed Type Oxygen Home E0424 #1 ea 05/19/22 07/15/23 Rx levothyroxine 88 mcg tablet 88 mcg PO QAM #90 tabs 11/21/22 08/11/23 Rx albuterol sulfate 90 mcg/actuation 2 inh inhalation QID PRN shortness 04/15/23 08/11/23 Rx aerosol inhaler of breath or wheezing #18 grams ipratropium 0.5 mg-albuterol 3 mg 3 ml inhalation Q4H PRN shortness 05/11/23 08/11/23 Rx (2.5 mg base)/3 mL nebulization of breath or wheezing #180 vials soln tiotropium bromide 2.5 2 puff inhalation DAILY #3 Inhalers 05/11/23 08/11/23 Rx mcg/actuation mist for inhalation (Spiriva Respimat) blood sugar diagnostic (OneTouch #200 ea 06/09/23 07/15/23 Rx Ultra Test strips) empagliflozin 25 mg tablet 25 mg PO QAM #90 tabs 06/09/23 08/11/23 Rx azelastine 137 mcg (0.1 %) nasal 1 spray intranasal BID #30 mL 07/02/23 08/11/23 Rx spray aerosol losartan 25 mg tablet 25 mg PO DAILY 07/04/23 08/11/23 History metformin 500 mg tablet,extended 1,000 mg PO BID 07/04/23 08/11/23 History release 24 hr aspirin 81 mg tablet,delayed 81 mg PO QAM 07/08/23 08/11/23 History release mometasone-formoterol HFA 200 2 puff inhalation BID #13 grams 07/10/23 08/11/23 Rx mcg-5 mcg/actuation aerosol inhaler (Dulera) Past Med/Surg History Medical History Hypertension Chronic bronchitis Chronic obstructive pulmonary disease Type 2 diabetes mellitus with microalbuminuria Tobacco abuse Neck pain Abnormal chest CT Pneumonia Severe protein-calorie malnutrition Pneumonia Hyperlipidemia Hypersomnolence COPD with emphysema inhalers daily/prn, nebulizer prn COPD (chronic obstructive pulmonary disease) case management patient Acquired deviated nasal septum Actinic keratosis Chronic gout Frequent PVCs Hypothyroidism Incidental lung nodule, > 3mm and < 8mm Tobacco use Chronic diarrhea Surgical History Hx of vasectomy History of colonoscopy last 2019 History of Mohs micrographic surgery for skin cancer x3 History of wisdom tooth extraction History of bilateral cataract extraction History of appendectomy History of tonsillectomy Family History Other No family history of adverse response to anesthesia Denies family history of Ovarian cancer Prostate cancer Myocardial infarction Breast cancer Colorectal cancer Social History Smoking Status: Former smoker Tobacco Type: Cigarettes Cigarettes Per Day: 3 pack/day; Second Hand Exposure: No; Do You Dip or Chew Tobacco: No; Hx Alcohol Use: No Hx Substance Use: No Preferred Language: Comoran Communication Ability: Effective Visual Impairment: No Limitations Hearing Ability: Normal [employer] Consultant Required: No Beliefs That Will Affect Care: None marital status: Single Current Living Situation: Alone current occupational status: retired How many Children do You have: 1 Feels Safe at Home: Yes Dental Care, Regularly: Yes Physical Activity Frequency: 1-2 Times per Week Seatbelt Use: always Sunscreen Use: No Assistive Devices: Oxygen - Continuous Review of Systems Review of Systems: Prior to the event in room A4, where he lost consciousness, the patient had denied chest pain, palpitations, lower extremity swelling, sore throat, fevers, chills, sweats, nausea, vomiting, diarrhea , constipation, abdominal pain, pelvic pain, blood in urine or stool, dysuria, urinary frequency or urgency, lightheadedness, dizziness, headache, memory loss, loss of consciousness, rash, abnormal bruising or bleeding, imbalance, focal or generalized weakness, numbness or tingling in arms or legs, generalized arthralgias or myalgias, back or neck pain, or night sweats. The review of systems is otherwise negative other than for that already noted above, and at least 10 systems have been reviewed. Physical Exam Physical Exam: Prior to the episode of losing consciousness in room A4, the patient is awake, alert and oriented 3, well developed and well nourished, normocephalic and atraumatic, lying in bed and in no acute distress. HEENT--PERRL, EOMI, mucous membranes and oropharynx dry. Neck--supple. No JVD. No bruits. Thyroid normal, trachea midline, no adenopathy. Heart--normal S1 and S2. No murmurs, rubs or gallops. Lungs--few coarse breath sounds with wheezes bilaterally. No respiratory distress, no accessory muscle use. Abdomen--normal bowel sounds and soft. Nontender. Nondistended, no hernias or masses, no organomegaly. Extremities--no cyanosis or clubbing. No edema. There are good distal pulses b/l. Dermatologic--normal skin turgor, normal color, no abnormal lymph nodes, no rash. Neurologic--cranial nerves II through XII grossly intact. Rheumatologic--normal range of motion. Psychiatric--normal affect. Results & Data Results & Data Vital Signs (Past 12 Hours) Vital Signs Temp Pulse Pulse Resp BP BP Pulse Ox 08/11/23 23:41 83 20 140/76 91 08/11/23 20:12 93 08/11/23 20:07 36.5 C 110 H 22 129/84 85 L O2 Del Method O2 Flow Rate 08/11/23 23:41 Nasal Cannula 3 08/11/23 20:12 Nasal Cannula 2 08/11/23 20:07 Room Air Laboratory Results Laboratory Results WBC 29.20 K/ul (4.8-10.8) H D 08/12/23 03:39 RBC 5.68 M/uL (4.70-6.10) 08/12/23 03:39 Hgb 16.7 g/dl (14.0-18.0) 08/12/23 03:39 POC Hgb 17.7 g/dl (14.0-18.0) 08/12/23 03:12 Hct 52.6 % (42.0-52.0) H 08/12/23 03:39 POC Hct 52 % (42-52) 08/12/23 03:12 MCV 92.6 fL (80.0-100.0) 08/12/23 03:39 MCH 29.4 pg (25.0-34.0) 08/12/23 03:39 MCHC 31.7 g/dL (32.0-36.0) L 08/12/23 03:39 RDW Std Deviation 48.1 fL (36.4-46.3) H 08/12/23 03:39 RDW Coeff of Samantha 14.1 % (11.5-14.5) 08/12/23 03:39 Plt Count 319 K/uL (130-400) 08/12/23 03:39 MPV 10.4 fL (9.4-12.4) 08/12/23 03:39 Immature Gran % (Auto) 2.6 % 08/12/23 03:39 Neut % (Auto) 87.9 % 08/12/23 03:39 Lymph % (Auto) 4.6 % 08/12/23 03:39 Blount % (Auto) 4.2 % 08/12/23 03:39 Eos % (Auto) 0.2 % 08/12/23 03:39 Baso % (Auto) 0.5 % 08/12/23 03:39 Neut # (Auto) 25.68 K/uL (1.40-6.50) H 08/12/23 03:39 Lymph # (Auto) 1.33 K/uL (1.20-3.40) 08/12/23 03:39 Blount # (Auto) 1.22 K/uL (0.11-0.59) H 08/12/23 03:39 Eos # (Auto) 0.05 K/uL (0.00-0.50) 08/12/23 03:39 Baso # (Auto) 0.15 K/uL (0.00-0.20) 08/12/23 03:39 Immature Gran # (Auto) 0.77 K/uL (0.01-0.20) H 08/12/23 03:39 Echinocytes 2+ 08/12/23 03:39 PT 11.9 Seconds (9.0-12.0) 08/12/23 03:39 INR 1.1 (0.9-1.1) 08/12/23 03:39 APTT 27 Seconds (21-31) 08/11/23 20:53 PTT Ratio 1.0 08/11/23 20:53 Fibrinogen 466 mg/dl (184-400) H 08/12/23 03:39 Sample Site Art Line 08/12/23 03:12 POC pH 7.10 (7.35-7.45) L* 08/12/23 03:12 POC pCO2 72 mmHg (35-46) H 08/12/23 03:12 POC pO2 98 mmHg (80-95) H 08/12/23 03:12 POC HCO3 22 [place]and[place]/L (19-24) 08/12/23 03:12 POC Total CO2 24 mmol/L (24-31) 08/12/23 03:12 POC Base Excess -7.0 [place]/L (-9-1.8) 08/12/23 03:12 ABG pH (Temp Correct) 7.116 (7.35-7.45) L* 08/12/23 03:12 ABG pCO2 (Temp Corrct 68 mmHg (35-46) H 08/12/23 03:12 POC ABG pO2 at Pt Temp 89 08/12/23 03:12 POC ABG O2 Sat 94.0 % (90-95) 08/12/23 03:12 Chandra Test NA 08/12/23 03:12 VBG pH 7.32 (7.36-7.41) L 08/11/23 23:34 VBG pCO2 53 mmHg (38-50) H 08/11/23 23:34 VBG pO2 < 20 mmHg 08/11/23 23:34 VBG HCO3 27 mmol/L 08/11/23 23:34 VBG O2 Saturation < 60.0 % 08/11/23 23:34 VBG Base Excess 0.3 mEq/L 08/11/23 23:34 O2 Delivery Device Ventilator 08/12/23 03:12 POC O2 Rate 28 08/12/23 03:12 POC FiO2 60 % 08/12/23 03:12 Tidal Volume 385 08/12/23 03:12 PEEP 5 08/12/23 03:12 POC Sodium 137 mmol/L (135-144) 08/12/23 03:12 Sodium 136 mmol/L (136-145) 08/12/23 03:39 POC Potassium 3.6 mmol/L (3.3-5.0) 08/12/23 03:12 Potassium 3.9 mmol/L (3.5-5.1) 08/12/23 03:39 Chloride 105 mmol/L (98-107) 08/12/23 03:39 Carbon Dioxide 21 mmol/L (21-32) 08/12/23 03:39 Anion Gap 10 (3-11) 08/12/23 03:39 BUN 27 mg/dl (6-23) H 08/12/23 03:39 Creatinine 0.79 mg/dl (0.6-1.4) 08/12/23 03:39 Est Cr Clr Drug Dosing 72.9 ml/min 08/12/23 03:39 Est GFR ( Amer) 97.6 ml/min 08/12/23 03:39 Est GFR (Non-Af Amer) 84.2 ml/min 08/12/23 03:39 BUN/Creatinine Ratio 34.2 (10-20) H 08/12/23 03:39 Glucose 319 mg/dl (70-99(Fasting)) H* 08/12/23 03:39 POC Glucose 192 mg/dl (70-99) H 08/12/23 00:51 Lactate 2.1 mmol/L (0.4-2.0) H* 08/12/23 03:39 Calcium 7.7 mg/dl (8.6-10.3) L 08/12/23 03:39 Phosphorus 4.4 mg/dl (2.5-4.9) 08/12/23 03:39 Magnesium 1.7 mg/dl (1.7-2.4) 08/12/23 03:39 Total Bilirubin 0.7 mg/dl (0.2-1.0) 08/11/23 20:53 AST 19 U/L (13-39) 08/11/23 20:53 ALT 25 U/L (7-52) 08/11/23 20:53 Alkaline Phosphatase 58 U/L (34-104) 08/11/23 20:53 Troponin I High Sens 10.2 pg/ml (0-20) 08/11/23 20:53 Total Protein 7.1 gm/dl (6.0-8.3) 08/11/23 20:53 Albumin 3.8 gm/dl (3.4-5.0) 08/12/23 03:39 Globulin 2.8 gm/dl (2.5-4.0) 08/11/23 20:53 Albumin/Globulin Ratio 1.5 (0.9-2) 08/11/23 20:53 Procalcitonin 0.06 ng/ml (0-0.5) 08/11/23 20:53 Adenovirus (PCR) Not Detected (NotDetected) 08/11/23 20:53 B. pertussis DNA (PCR) Not Detected (NotDetected) 08/11/23 20:53 B.parapertussis DNA PCR Not Detected (NotDetected) 08/11/23 20:53 C. pneumoniae DNA (PCR) Not Detected (NotDetected) 08/11/23 20:53 Coronavirus OC43 (PCR) Not Detected (NotDetected) 08/11/23 20:53 Coronavirus HKU1 (PCR) Not Detected (NotDetected) 08/11/23 20:53 Coronavirus 229E (PCR) Not Detected (NotDetected) 08/11/23 20:53 SARS-CoV-2 (PCR) NEGATIVE (Negative) 08/11/23 20:53 SARS-CoV-2 (PCR) Not Detected (NotDetected) 08/11/23 20:53 Coronavirus NL63 (PCR) Not Detected (NotDetected) 08/11/23 20:53 Human Metapneumovir PCR Not Detected (NotDetected) 08/11/23 20:53 Influenza Type A (PCR) Negative (Neg) 08/11/23 20:53 Influenza Type A (PCR) Not Detected (NotDetected) 08/11/23 20:53 Influenza Type B (PCR) Negative (Neg) 08/11/23 20:53 Influenza Type B (PCR) Not Detected (NotDetected) 08/11/23 20:53 M. pneumoniae (PCR) Not Detected (NotDetected) 08/11/23 20:53 Parainfluenza 1 (PCR) Not Detected (NotDetected) 08/11/23 20:53 Parainfluenza 2 (PCR) Not Detected (NotDetected) 08/11/23 20:53 Parainfluenza 3 (PCR) Not Detected (NotDetected) 08/11/23 20:53 Parainfluenza 4 (PCR) Not Detected (NotDetected) 08/11/23 20:53 RSV (RT-PCR) Negative (Neg) 08/11/23 20:53 RSV (PCR) Not Detected (NotDetected) 08/11/23 20:53 Entero/Rhino (PCR) Not Detected (NotDetected) 08/11/23 20:[address] 08/11/23 23:04 Exam(s): CT CHEST With Contrast IV Amt: 84 ml optiray 320 EXAM: CT Chest With Intravenous Contrast CLINICAL HISTORY: Reason for exam: pneumonia, copd, hx recurrent pna. TECHNIQUE: Axial computed tomography images of the chest with intravenous contrast. Automated exposure control was utilized for the study. A dose lowering technique was utilized adhering to the principles of ALARA. CONTRAST: Patient received 84 ml optiray 320 of IV contrast COMPARISON: No relevant prior studies available. FINDINGS: Lungs: Moderate centrilobular emphysema. Atelectasis at the lung bases. No pneumonia or pneumothorax. No pleural effusion. No mass. Pleural space: See above. Heart: Unremarkable. No cardiomegaly. No significant pericardial effusion. No significant coronary artery calcifications. Bones/joints: Degenerative changes of the spine. No acute fracture. No dislocation. Soft tissues: Unremarkable. Vasculature: Atherosclerotic changes of the aorta. No thoracic aortic aneurysm. Lymph nodes: Unremarkable. No enlarged lymph nodes. Liver: Hepatic steatosis. IMPRESSION: Moderate centrilobular emphysema. Atelectasis at the lung bases. No pneumonia or pneumothorax. No pleural effusion. Electronically signed by: Josiah Tejada MD 08/11/23 23:[address] 08/12/23 00:55 Exam(s): CT HEAD Without Contrast EXAM: CT Head Without Intravenous Contrast CLINICAL HISTORY: Reason for exam: altered mental status. TECHNIQUE: Axial computed tomography images of the head/brain without intravenous contrast. CTDI is 61.39 mGy and DLP is 3018.63 mGy-cm. Automated exposure control was utilized for the study. A dose lowering technique was utilized adhering to the principles of ALARA. COMPARISON: CT Head dated 08/23/2022 FINDINGS: Brain: Volume loss with prominent ventricles and sulci. Periventricular and subcortical white matter hypoattenuation likely reflects chronic small vessel disease. 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 No hemorrhage. Ventricles: See above. Bones/joints: Unremarkable. No acute fracture. Soft tissues: Unremarkable. Sinuses: Left maxillary sinus mucosal thickening and small fluid level. Mastoid air cells: Unremarkable as visualized. No mastoid effusion. Orbits: Bilateral intraocular lens implants. IMPRESSION: 1. No evidence of acute intracranial abnormality. 2. Left maxillary sinus mucosal thickening and small fluid level. Correlate for acute sinusitis. Electronically signed by: Radha Burton M.D. 08/12/23 02:31 AM Abdomen/Pelvis CT 08/12/23 01:26 Exam(s): CT ABDOMEN + PELVIS Without Contrast EXAM: CT Abdomen and Pelvis Without Intravenous Contrast CLINICAL HISTORY: Reason for exam: unresponsive episode. TECHNIQUE: Axial computed tomography images of the abdomen and pelvis without intravenous contrast. Automated exposure control was utilized for the study. A dose lowering technique was utilized adhering to the principles of ALARA. COMPARISON: CT chest today. FINDINGS: Lung bases: Bibasilar atelectasis/airspace disease. ABDOMEN: Liver: Unremarkable. Gallbladder and bile ducts: Unremarkable. No calcified stones. No ductal dilation. Pancreas: Unremarkable. No ductal dilation. Spleen: Unremarkable. No splenomegaly. Adrenals: Unremarkable. No mass. Kidneys and ureters: Unremarkable. No obstructing stones. No hydronephrosis. Stomach and bowel: Colonic diverticulosis. Bilateral inguinal hernias. Right inguinal hernia contains a small bowel loop. Proximal to it mildly distended small bowel loops with mottled contents and fluid. Left inguinal hernia containing fat. No mucosal thickening. PELVIS: Appendix: No findings to suggest acute appendicitis. Bladder: Unremarkable. No stones. Reproductive: Enlarged prostate. ABDOMEN and PELVIS: Intraperitoneal space: Unremarkable. No free air. No significant fluid collection. Bones/joints: Degenerative changes of the spine. No acute fracture. No dislocation. Soft tissues: See above. Vasculature: Moderate aortoiliac vascular calcifications. No abdominal aortic aneurysm. Lymph nodes: Unremarkable. No enlarged lymph nodes. Tubes, lines and devices: Enteric tube tip in the mid stomach. IMPRESSION: 1. Right inguinal hernia contains a small bowel loop. Proximal to it mildly distended small bowel loops with mottled contents and fluid. Possible low-grade bowel obstruction due to the herniated loop. 2. Bibasilar atelectasis/airspace disease. 3. Colonic diverticulosis. Electronically signed by: Radha Burton M.D. 08/12/23 03:04 AM Code Status & VTE Plan Code Status Full code VTE Prophylaxis Plan VTE Prophylaxis will be ordered: Yes Critical Care Time 40 minutes PG Care Time/CCT Total # of Minutes Spent Total Time Spent with Patient: Total time spent is greater than 50% in coordination of care (as documented) at patient's floor/unit and/or counseling patient: Coding Level of Care Code 11436 INT INP/OBS CARE 3/75MIN Diagnoses Required emergent intubation Z98.890 Respiratory failure J96.90 Multifocal pneumonia J18.9 CAD (coronary artery disease) I25.10 Hypertension I10 Acute respiratory failure with hypoxia J96.01 Simple chronic bronchitis J44.9 Type 2 diabetes mellitus with microalbuminuria E11.29; R80.9
[2023-08-12] MEDS: AZITHROMYCIN 500 MG in DEXTROSE 5% 250 ML IV ONE (00:38)
[2023-08-12] MEDS: SODIUM CHLORIDE 0.9% 1,000 ML IV SCH (00:38)
[2023-08-12] MEDS: CEFEPIME 2,000 MG/20 ML VIAL IV STA (00:38)
[2023-08-12] MEDS: methylPREDNISolone 125 MG/2 ML VIAL IV STA (00:38)
[2023-08-12 00:52] LABS: Adenovirus PCR Not Detected (NotDetected); Bordetella parapertussis PCR Not Detected (NotDetected); Bordetella pertussis PCR Not Detected (NotDetected); Chlamydia pneumoniae PCR Not Detected (NotDetected); Coronavirus 229E PCR Not Detected (NotDetected); Coronavirus CoV-2 (COVID19)PCR Not Detected (NotDetected); Coronavirus HKU1 PCR Not Detected (NotDetected); Coronavirus NL63 PCR Not Detected (NotDetected); Coronavirus OC43PCR Not Detected (NotDetected); Human Metapneumovirus PCR Not Detected (NotDetected); Influenza A PCR Not Detected (NotDetected); Influenza B PCR Not Detected (NotDetected); Mycoplasma pneumoniae PCR Not Detected (NotDetected); Parainfluenza Virus 1 PCR Not Detected (NotDetected); Parainfluenza Virus 2 PCR Not Detected (NotDetected); Parainfluenza Virus 3 PCR Not Detected (NotDetected); Parainfluenza Virus 4 PCR Not Detected (NotDetected); Respiratory Syncytial VirusPCR Not Detected (NotDetected); Rhinovirus/Enterovirus PCR Not Detected (NotDetected)
[2023-08-12] MEDS ORDERED: STAT IV Infusion **Titration per Protocol STA ×4 (01:09→05:09)
[2023-08-12] MEDS: SODIUM BICARB 8.4% INJ 50 MEQ/50 ML SYR IV STA ×2 (02:00→12:37)
[2023-08-12] MEDS ORDERED: NOREPINEPHRINE/D5W 4 MG/250 ML PLCT IV SCH (02:00)
[2023-08-12] MEDS ORDERED: fentaNYL BOLUS from BAG IV PRN ×2 (02:08→02:43)
[2023-08-12 02:21] LABS: iSTAT Allen Test Pass; iSTAT Art Bld Gas pCO2 Correct 78 mmHg (35-46); iSTAT Art Bld Gas pH Corrected 7.017 (7.35-7.45); iSTAT Arterial Blood Gas HCO3 21 meg/L (19-24); iSTAT Arterial Blood Gas pCO2 89 mmHg (35-46); iSTAT Arterial Blood Gas pH 6.98 (7.35-7.45); iSTAT Arterial Blood Gas pO2 102 mmHg (80-95); iSTAT Arterial Blood Gas pO2 C 84; iSTAT Carbon Dioxide 24 mmol/L (24-31); iSTAT FiO2 60 %; iSTAT Hematocrit 52 % (42-52); iSTAT Hemoglobin 17.7 g/dl (14.0-18.0); iSTAT Potassium 3.7 mmol/L (3.3-5.0); iSTAT Site R Radial; iSTAT Sodium 139 mmol/L (135-144)
[2023-08-12] MEDS: MAX Conc; 32mg in 250mL IV SCH (02:30)
[2023-08-12] MEDS: fentaNYL citrate 2,500 MCG/250 ML BAG IV SCH (02:30)
--- NOTE | 2023-08-12 02:31 | CT Scan Report ---
Exam(s): CT HEAD Without Contrast EXAM: CT Head Without Intravenous Contrast CLINICAL HISTORY: Reason for exam: altered mental status. TECHNIQUE: Axial computed tomography images of the head/brain without intravenous contrast. CTDI is 61.39 mGy and DLP is 3018.63 mGy-cm. Automated exposure control was utilized for the study. A dose lowering technique was utilized adhering to the principles of ALARA. COMPARISON: CT Head dated 08/23/2022 FINDINGS: Brain: Volume loss with prominent ventricles and sulci. Periventricular and subcortical white matter hypoattenuation likely reflects chronic small vessel disease. 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 No hemorrhage. Ventricles: See above. Bones/joints: Unremarkable. No acute fracture. Soft tissues: Unremarkable. Sinuses: Left maxillary sinus mucosal thickening and small fluid level. Mastoid air cells: Unremarkable as visualized. No mastoid effusion. Orbits: Bilateral intraocular lens implants. IMPRESSION: 1. No evidence of acute intracranial abnormality. 2. Left maxillary sinus mucosal thickening and small fluid level. Correlate for acute sinusitis. Electronically signed by: Radha Burton M.D. 08/12/23 02:31 AM
[2023-08-12] MEDS ORDERED: ONDANSETRON INJ 2 MG/ML 2 ML VIAL IV PRN (02:32)
[2023-08-12] MEDS ORDERED: ACETAMINOPHEN 325 MG TAB PO PRN (02:32)
[2023-08-12] MEDS: MIDAZOLAM HCL 5 MG/ML 2ML VIAL ONE (02:44)
--- NOTE | 2023-08-12 03:05 | CT Scan Report ---
Exam(s): CT ABDOMEN + PELVIS Without Contrast EXAM: CT Abdomen and Pelvis Without Intravenous Contrast CLINICAL HISTORY: Reason for exam: unresponsive episode. TECHNIQUE: Axial computed tomography images of the abdomen and pelvis without intravenous contrast. Automated exposure control was utilized for the study. A dose lowering technique was utilized adhering to the principles of ALARA. COMPARISON: CT chest today. FINDINGS: Lung bases: Bibasilar atelectasis/airspace disease. ABDOMEN: Liver: Unremarkable. Gallbladder and bile ducts: Unremarkable. No calcified stones. No ductal dilation. Pancreas: Unremarkable. No ductal dilation. Spleen: Unremarkable. No splenomegaly. Adrenals: Unremarkable. No mass. Kidneys and ureters: Unremarkable. No obstructing stones. No hydronephrosis. Stomach and bowel: Colonic diverticulosis. Bilateral inguinal hernias. Right inguinal hernia contains a small bowel loop. Proximal to it mildly distended small bowel loops with mottled contents and fluid. Left inguinal hernia containing fat. No mucosal thickening. PELVIS: Appendix: No findings to suggest acute appendicitis. Bladder: Unremarkable. No stones. Reproductive: Enlarged prostate. ABDOMEN and PELVIS: Intraperitoneal space: Unremarkable. No free air. No significant fluid collection. Bones/joints: Degenerative changes of the spine. No acute fracture. No dislocation. Soft tissues: See above. Vasculature: Moderate aortoiliac vascular calcifications. No abdominal aortic aneurysm. Lymph nodes: Unremarkable. No enlarged lymph nodes. Tubes, lines and devices: Enteric tube tip in the mid stomach. IMPRESSION: 1. Right inguinal hernia contains a small bowel loop. Proximal to it mildly distended small bowel loops with mottled contents and fluid. Possible low-grade bowel obstruction due to the herniated loop. 2. Bibasilar atelectasis/airspace disease. 3. Colonic diverticulosis. Electronically signed by: Radha Burton M.D. 08/12/23 03:04 AM
[2023-08-12] MEDS: RAPID SEQUENCE INDUCTION BAG ONE (03:15)
[2023-08-12] MEDS: NOREPINEPHRINE/D5W 4 MG/250 ML IV ONE ×4 (03:16→03:39)
[2023-08-12] MEDS: PROPOFOL IV EMULSION 10 MG/ML 100 ML VIAL IV ONE (03:16)
[2023-08-12] MEDS: VECURONIUM BROMIDE 10 MG VIAL IV STA (03:22)
--- NOTE | 2023-08-12 03:30 | Procedure Note ---
Procedure Note Date of Service August 12, 2023 Note Procedure: Emergent placment of Right Femoral Central Line access Proceduralist: Burak CRUM ([facility] Attending: Dr. SOTO Indication: Central Drug Administration, Poor Venous Access, Multiple Lab Draws Necessary, etc. Anesthesia: [x]None Emergent Consent was implied as this was during respiratory arrest with rapidly increasing needs for vasoactive medications A time-out was completed verifying correct patient, procedure, site, positioning, and implants(s) or special equipment if applicable. Patients right groin was cleansed using Chloraprep. The femoral arrtery and vein were identified using sterile ultrasound. The Femoral vein was cannulated under direct ultrasound guidance using an introducer needle on a syringe. Good venous blood return was maintained prior to removal of syringe from introducer needle. Using Seldinger Technique, a guide wire was advanced through the introducer needle without resistance. The introducer needle was removed and ultrasound images were obtained of the guide wire within the FEMORAL Vein and saved to the patients medical record. A small incision was made in penetrating fashion at the guide wire insertion site utilizing an 11 blade scalpel. The dilator was advanced to the vessel without resistance. The dilator was exchanged for the triple lumen catheter which was advanced into the vessel without resistance. The guide wire was removed intact from the catheter without issue. Claves were placed on each catheter tip with confirmation of good blood flow from each lumen. Each port was easily flushed with sterile saline. The catheter was placed at 20 cm and sutured in place. BioPatch was applied to the catheter and a sterile Tegaderm dressing was applied over the catheter, the catheter was secured with suture. Patient tolerated procedure well. No immediate comp lications were met. Line ready for immediate use Images obtained are NOT saved for permanent record as this was emergent Coding CPT Codes Tubes, Drains, and Vasc Access - Tubes, Drains, and Vasc Access: [id number] Insertion Of Non-tunneled Catheter Age 6 Yrs> ([id number]) [facility] [place] Codes (Charges) Tubes, Drains, and Vasc Access Procedure 1: Tubes, Drains, and Vasc Access: [id number] Insertion Of Non-tunneled Catheter Age 6 Yrs>
--- NOTE | 2023-08-12 03:30 | Procedure Note ---
Procedure Note Date of Service August 12, 2023 Note ARTERIAL LINE PROCEDURE NOTE: Procedure: Arterial Line Placement Proceduralist: Burak CRUM ([facility] Attending: Dr. SOTO Indication: Monitoring on Pressors Anesthesia:[x]Lidocaine 1% Emergent Consent was implied as patient is full code, intubated and sedated. A time-out was completed verifying correct patient, procedure, site, positioning, and implant(s) or special equipment if applicable. Allens test was performed to ensure adequate perfusion. Patients LEFT wrist was prepped and draped in the usual sterile fashion. Ultrasound guidance was used to aid needle placement. A 20g Arrow arterial line was introduced into the LEFT RADIAL artery. Catheter was threaded, and the needle was removed with appropriate blood return. Good waveform was observed. The patient tolerated the procedure well. The line was secured with suture and sterile dressing was implied Blood Loss: Minimal Complications: None immediate Artery Identified: YES Complications: NONE Patient tolerated procedure: WELL Coding CPT Codes Tubes, Drains, and Vasc Access - Tubes, Drains, and Vasc Access: [id number] Ultrasound Guidance For Vascular ([id number]) [facility] [place] Procedure Codes (Charges) Tubes, Drains, and Vasc Access Procedure 2: Tubes, Drains, and Vasc Access: [id number] Ultrasound Guidance For Vascular
--- NOTE | 2023-08-12 03:30 | Critical Care Consultation ---
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 Neuro - Sedation for mechanical ventilation CAM ICU: KELLEE - Patient required intubation for respiratory arrest - head CT negative for acute bleed/LVO - No history of seizures noted and at this time unlikely culprit - Sedate with Propfol and Fentanyl for FILEMON -2 - Consider EEG if delayed arousability following weaning of sedation or further development of abnormal movements Cardiac - Shock unspecified - Patient with respiratory arrest with significant hypotension following arrest- CT chest done however not protocoled for PE - Once stabilized will obtain CTA of the chest for PE study- he is currently with hematuria as well as with blood from hi-low ETT and intubation was atraumatic - Shock without organ dysfunction and with STEMI on ECG- likely related to acute hypercarbia with PH <7.1 - Bedside POCUS without evidence of pericardial effusion and with normal appearing contractions - Wean vasopressors as able - Maintain MAPS >65 Respiratory - Hypercarbic/hypoxic respiratory failure requiring emergent intubation, COPD exacerbation - Patient with stage D COPD initially was not severely hypercarbic on arrival - however following respiratory arrest Co2 >80 with thick najera secretions with possibility with mucous plugging - Continue with DUOnebs q6 hour, IV steroids, inhaled Pulmicort BID - Consider bronchoscopy for secretion removal however is without lobar collapse noted on imaging - PaO2 is remaining stable with decreasing FIo2 and PEEP doubt PE at this time - Doubt infectious etiology/pneumonia at this time- no opacification, PCT negative, - Possibly related to sinusitis GI - Inguinal hernia - Soft with no evidence of incarceration- Imaging with concern for possible bowel obstruction - consider general surgery consultation if abdominal exam changes- already receiving conservative care with IVF and OGT in place RENAL/LYTES - No acute needs - ICU electrolyte protocol - Hematuria - history of BPH- Bonilla catheter reported as a traumatic and easy insertion by staff - follow at this time consider urology consultation if not clearing ENDO - DMII - Hyperglycemia likely exacerbated by steroid administration- insulin infusion for goal <180mg/dl HEME - No acute needs ID - SIRS - Meets SIRS criteria- WBC elevated, hypotensive, without clear evidence of infection at this time, PCT negative, Respiratory BIOfire negative - urine pending - Blood cultures pending LINES/IV ACCESS - CVL, PIV, Bonita, BONILLA Continue use of these lines DVT PROPHYLAXIS - SCDS DISPO: ICU while intubated and sedated I have personally spent 74 minutes of critical care time in the direct management of this patient. This is a life/limb threatening event. This includes time spent evaluating patient, direct bedside care, chart review, placing orders, interpretation of diagnostic studies, discussion with consultants, patient, and family members, as well as other required patient management activities. This time is exclusive of all separately billable procedures, separate from and in addition to any other critical care service time. Thank you for allowing us to participate in the care of this patient. Please refer to my attending physician's documentation for any further recommendations. Supervising Physician Co-Signing Physician Notes Patient seen and examined. EMR reviewed. Discussed with critical care JOB and on multidisciplinary rounds and with bedside critical care nurse and other subspecialist and ancillary personnel. The patient remains in shock on norepinephrine of unclear etiology. He has a severe nonanion gap metabolic acidosis. Lactate is normal and kidney function is preserved. Will obtain general surgery consult for potential small bowel obstruction and bowel loops in the hernia although I am not sure this is the etiology of the patient's complaints. He could have had transient ischemic bowel causing his symptoms but would expect lactate to be elevated. He does have evidence of possible aspiration/bibasilar consolidative process and will pursue bronchoscopy for lower respiratory specimens today. Does have known bib asilar bronchiectasis and may be intermittently aspirating. Currently on cefepime and azithromycin which will be continued. Check random cortisol the patient is already receiving steroids. He is not bronchospastic currently. Add Perforomist to his budesonide. No family immediately available. Please add additional 40 minutes in critical care time for patient that is critically ill with life-threatening illness. History of Present Illness Reason for Consultation: Respiratory arrest resulting in emergent intubation Requesting Physician: Jayme Obrien MD Attending Physician: Jayme Obrien MD History of Present Illness 82 YOM with history of COPD, chronic bronchitis, DMII, Hypothyroidism, HTN, CAD. Patient came to EMD today for complaints of increased shortness of breath and concern for pneumonia. The patient was initially admitted under medicine service. Responded to CODE BLUE activation at 00:49, which was respiratory arrest requiring emergent intubation. The patient reportedly was coming back from the bathroom and got back in bed with a distant gaze and dusky lips. Upon arrival EMD physician Dr. Bradley and Dr. Romo were managing airway with Ambubag with nasal trumpet while preparing for intubation. He was also noted at that time with HR in the 130s sinus tachycardia and hypotensive to the 50s systolic. Upon intubation noted thick najera secretions in the hypopharynx and around the vocal cords. He was given IVF and push dose pressors with minimal response, therefore Levophed infusion was rapidly increasing. There was malfunc tion of PIV so emergent central access was undertaken. Once access obtained and vital signs stablaized out, the patient was taken to CT scan for head, chest, abdomen and pelvis. He was then brought to the ICU still requiring high dose Levophed. He was coughing aggressively against the ventilator. He was sedated with fentanyl and propfol, and eventually required another dose of versed and eventually paralyzed with vecuronium for vent synchrony. He currently remains with respiratory acidosis. Arterial line will be obtained for hemodynamic monitoring and frequent lab/abg draws. CODE: FULL Allergies Allergy/AdvReac Type Severity Reaction Status Date / Time No Known Allergies Allergy Mild Verified 08/11/23 23:53 Home Medications Medication Instructions Recorded Confirmed Type Oxygen Home E0424 #1 ea 05/19/22 07/15/23 Rx levothyroxine 88 mcg tablet 88 mcg PO QAM #90 tabs 11/21/22 08/11/23 Rx albuterol sulfate 90 mcg/actuation 2 inh inhalation QID PRN shortness 04/15/23 08/11/23 Rx aerosol inhaler of breath or wheezing #18 grams ipratropium 0.5 mg-albuterol 3 mg 3 ml inhalation Q4H PRN shortness 05/11/23 08/11/23 Rx (2.5 mg base)/3 mL nebulization of breath or wheezing #180 vials soln tiotropium bromide 2.5 2 puff inhalation DAILY #3 Inhalers 05/11/23 08/11/23 Rx mcg/actuation mist for inhalation (Spiriva Respimat) blood sugar diagnostic (OneTouch #200 ea 06/09/23 07/15/23 Rx Ultra Test strips) empagliflozin 25 mg tablet 25 mg PO QAM #90 tabs 06/09/23 08/11/23 Rx azelastine 137 mcg (0.1 %) nasal 1 spray intranasal BID #30 mL 07/02/23 08/11/23 Rx spray aerosol losartan 25 mg tablet 25 mg PO DAILY 07/04/23 08/11/23 History metformin 500 mg tablet,extended 1,000 mg PO BID 07/04/23 08/11/23 History release 24 hr aspirin 81 mg tablet,delayed 81 mg PO QAM 07/08/23 08/11/23 History release mometasone-formoterol HFA 200 2 puff inhalation BID #13 grams 07/10/23 08/11/23 Rx mcg-5 mcg/actuation aerosol inhaler (Dulera) Patient History Medical History Hypertension Chronic bronchitis Chronic obstructive pulmonary disease Type 2 diabetes mellitus with microalbuminuria Tobacco abuse Neck pain Abnormal chest CT Pneumonia Severe protein-calorie malnutrition Pneumonia Hyperlipidemia Hypersomnolence COPD with emphysema inhalers daily/prn, nebulizer prn COPD (chronic obstructive pulmonary disease) case management patient Acquired deviated nasal septum Actinic keratosis Chronic gout Frequent PVCs Hypothyroidism Incidental lung nodule, > 3mm and < 8mm Tobacco use Chronic diarrhea Surgical History Hx of vasectomy History of colonoscopy last 2018 History of Mohs micrographic surgery for skin cancer x3 History of wisdom tooth extraction History of bilateral cataract extraction History of appendectomy History of tonsillectomy Family History Other No family history of adverse response to anesthesia Denies family history of Ovarian cancer Prostate cancer Myocardial infarction Breast cancer Colorectal cancer Social History Smoking Status: Former smoker Tobacco Type: Cigarettes Cigarettes Per Day: 3 pack/day; Second Hand Exposure: No; Do You Dip or Chew Tobacco: No; Hx Alcohol Use: No Hx Substance Use: No Preferred Language: Qatari Communication Ability: Effective Visual Impairment: No Limitations Hearing Ability: Normal Director Religious Education Required: No Beliefs That Will Affect Care: None marital status: Single Current Living Situation: Alone current occupational status: retired How many Children do You have: 1 Feels Safe at Home: Yes Dental Care, Regularly: Yes Physical Activity Frequency: 1-2 Times per Week Seatbelt Use: always Sunscreen Use: No Assistive Devices: Oxygen - Continuous Review of Systems Review of Systems: unable to be performed secondary to sedation, intubation and mechanical ventilation. Physical Exam Physical Exam: PHYSICAL EXAM: General: sedated in distress coughing against ETT Head: Normocephalic, atraumatic ENT: 2-1 sluggish, Neuro: pupils reactive but sluggish, moving extremities as well as crossed his legs over each-other on arrival Chest: equal rise and fall of the chest, severe coughing spells, thick najera secretions Cardiac: Regular rate and rhythm, telemetry reviewed- sinus tachycardia, skin cool and clammy, fingernails are cyanotic appearing, with mottling to lower extremities GI: NABS x 4 quadrants, soft, : Bonilla catheter draining blood tinged urine Skin: mottling to legs, some bruising to legs Results & Data Results & Data Vital Signs (Past 12 Hours) Vital Signs Temp Pulse Pulse Resp BP BP Pulse Ox 08/12/23 01:16 125/97 08/12/23 01:16 130 H 23 100 08/12/23 01:13 80/54 L 08/12/23 01:13 133 H 22 95 08/12/23 01:10 76/51 L 08/12/23 01:10 134 H 17 93 08/12/23 01:06 123 H 21 95 08/12/23 01:06 52/34 L 08/12/23 01:04 59/38 L 08/12/23 01:04 147 H 16 95 08/12/23 01:02 59/33 L 08/12/23 01:02 147 H 24 89 L 08/12/23 01:00 138 H 10 L 89 L 08/12/23 01:00 57/43 L 08/12/23 00:52 121 H 25 H 74 L 08/12/23 00:52 158/68 H 08/12/23 00:51 124 H 29 H 08/12/23 00:50 128 H 08/11/23 23:41 83 20 140/76 91 08/11/23 20:12 93 08/11/23 20:07 36.5 C 110 H 22 129/84 85 L O2 Del Method O2 Flow Rate 08/12/23 01:16 08/12/23 01:16 08/12/23 01:13 08/12/23 01:13 08/12/23 01:10 08/12/23 01:10 08/12/23 01:06 08/12/23 01:06 08/12/23 01:04 08/12/23 01:04 08/12/23 01:02 08/12/23 01:02 08/12/23 01:00 08/12/23 01:00 08/12/23 00:52 08/12/23 00:52 08/12/23 00:51 08/12/23 00:50 08/11/23 23:41 Nasal Cannula 3 08/11/23 20:12 Nasal Cannula 2 08/11/23 20:07 Room Air Laboratory Results Abnormal lab results 08/11/23 08/11/23 08/12/23 Range/Units 20:53 23:34 00:51 WBC 14.82 H (4.8-10.8) K/ul RDW Std Deviation 47.5 H (36.4-46.3) fL Neut # (Auto) 11.87 H (1.40-6.50) K/uL Lymph # (Auto) 1.10 L (1.20-3.40) K/uL [place] # (Auto) 1.53 H (0.11-0.59) K/uL POC pH (7.35-7.45) POC pCO2 (35-46) mmHg POC pO2 (80-95) mmHg POC Base Excess (-9-1.8) [place]/L ABG pH (Temp Correct) (7.35-7.45) ABG pCO2 (Temp Corrct (35-46) mmHg VBG pH 7.32 L (7.36-7.41) VBG pCO2 53 H (38-50) mmHg BUN 30 H (6-23) mg/dl BUN/Creatinine Ratio 37.5 H (10-20) Glucose 164 H (70-99(Fasting)) mg/dl POC Glucose 192 H (70-99) mg/dl Lactate (0.4-2.0) mmol/L 08/12/23 08/12/23 08/12/23 Range/Units 02:09 03:12 03:39 WBC (4.8-10.8) K/ul RDW Std Deviation (36.4-46.3) fL Neut # (Auto) (1.40-6.50) K/uL Lymph # (Auto) (1.20-3.40) K/uL [place] # (Auto) (0.11-0.59) K/uL POC pH 6.98 L* 7.10 L* (7.35-7.45) POC pCO2 89 H 72 H (35-46) mmHg POC pO2 102 H 98 H (80-95) mmHg POC Base Excess -11.0 L (-9-1.8) [place]/L ABG pH (Temp Correct) 7.017 L* 7.116 L* (7.35-7.45) ABG pCO2 (Temp Corrct 78 H 68 H (35-46) mmHg VBG pH (7.36-7.41) VBG pCO2 (38-50) mmHg BUN (6-23) mg/dl BUN/Creatinine Ratio (10-20) Glucose (70-99(Fasting)) mg/dl POC Glucose (70-99) mg/dl Lactate 2.1 H* (0.4-2.0) mmol/L Diagnostic Findings Chest CT 08/11/23 23:04 Exam(s): CT CHEST With Contrast IV Amt: 84 ml optiray 320 EXAM: CT Chest With Intravenous Contrast CLINICAL HISTORY: Reason for exam: pneumonia, copd, hx recurrent pna. TECHNIQUE: Axial computed tomography images of the chest with intravenous contrast. Automated exposure control was utilized for the study. A dose lowering technique was utilized adhering to the principles of ALARA. CONTRAST: Patient received 84 ml optiray 320 of IV contrast COMPARISON: No relevant prior studies available. FINDINGS: Lungs: Moderate centrilobular emphysema. Atelectasis at the lung bases. No pneumonia or pneumothorax. No pleural effusion. No mass. Pleural space: See above. Heart: Unremarkable. No cardiomegaly. No significant pericardial effusion. No significant coronary artery calcifications. Bones/joints: Degenerative changes of the spine. No acute fracture. No dislocation. Soft tissues: Unremarkable. Vasculature: Atherosclerotic changes of the aorta. No thoracic aortic aneurysm. Lymph nodes: Unremarkable. No enlarged lymph nodes. Liver: Hepatic steatosis. IMPRESSION: Moderate centrilobular emphysema. Atelectasis at the lung bases. No pneumonia or pneumothorax. No pleural effusion. Electronically signed by: Josiah Tejada MD 08/11/23 23:[address] 08/12/23 00:55 Exam(s): CT HEAD Without Contrast EXAM: CT Head Without Intravenous Contrast CLINICAL HISTORY: Reason for exam: altered mental status. TECHNIQUE: Axial computed tomography images of the head/brain without intravenous contrast. CTDI is 61.39 mGy and DLP is 3018.63 mGy-cm. Automated exposure control was utilized for the study. A dose lowering technique was utilized adhering to the principles of ALARA. COMPARISON: CT Head dated 08/23/2022 FINDINGS: Brain: Volume loss with prominent ventricles and sulci. Periventricular and subcortical white matter hypoattenuation likely reflects chronic small vessel disease. 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 No hemorrhage. Ventricles: See above. Bones/joints: Unremarkable. No acute fracture. Soft tissues: Unremarkable. Sinuses: Left maxillary sinus mucosal thickening and small fluid level. Mastoid air cells: Unremarkable as visualized. No mastoid effusion. Orbits: Bilateral intraocular lens implants. IMPRESSION: 1. No evidence of acute intracranial abnormality. 2. Left maxillary sinus mucosal thickening and small fluid level. Correlate for acute sinusitis. Electronically signed by: Radha Burton M.D. 08/12/23 02:31 AM Abdomen/Pelvis CT 08/12/23 01:26 Exam(s): CT ABDOMEN + PELVIS Without Contrast EXAM: CT Abdomen and Pelvis Without Intravenous Contrast CLINICAL HISTORY: Reason for exam: unresponsive episode. TECHNIQUE: Axial computed tomography images of the abdomen and pelvis without intravenous contrast. Automated exposure control was utilized for the study. A dose lowering technique was utilized adhering to the principles of ALARA. COMPARISON: CT chest today. FINDINGS: Lung bases: Bibasilar atelectasis/airspace disease. ABDOMEN: Liver: Unremarkable. Gallbladder and bile ducts: Unremarkable. No calcified stones. No ductal dilation. Pancreas: Unremarkable. No ductal dilation. Spleen: Unremarkable. No splenomegaly. Adrenals: Unremarkable. No mass. Kidneys and ureters: Unremarkable. No obstructing stones. No hydronephrosis. Stomach and bowel: Colonic diverticulosis. Bilateral inguinal hernias. Right inguinal hernia contains a small bowel loop. Proximal to it mildly distended small bowel loops with mottled contents and fluid. Left inguinal hernia containing fat. No mucosal thickening. PELVIS: Appendix: No findings to suggest acute appendicitis. Bladder: Unremarkable. No stones. Reproductive: Enlarged prostate. ABDOMEN and PELVIS: Intraperitoneal space: Unremarkable. No free air. No significant fluid collection. Bones/joints: Degenerative changes of the spine. No acute fracture. No dislocation. Soft tissues: See above. Vasculature: Moderate aortoiliac vascular calcifications. No abdominal aortic aneurysm. Lymph nodes: Unremarkable. No enlarged lymph nodes. Tubes, lines and devices: Enteric tube tip in the mid stomach. IMPRESSION: 1. Right inguinal hernia contains a small bowel loop. Proximal to it mildly distended small bowel loops with mottled contents and fluid. Possible low-grade bowel obstruction due to the herniated loop. 2. Bibasilar atelectasis/airspace disease. 3. Colonic diverticulosis. Electronically signed by: Radha Burton M.D. 08/12/23 03:04 AM Medications Administered Home Medications Oxygen Home E0424 #1 ea 05/19/22 [Rx Confirmed 07/15/23] levothyroxine 88 mcg tablet 88 mcg PO QAM #90 tabs 11/21/22 [Rx Confirmed 08/11/23] albuterol sulfate 90 mcg/actuation aerosol inhaler 2 inh inhalation QID PRN shortness of breath or wheezing #18 grams 04/15/23 [Rx Confirmed 08/11/23] ipratropium 0.5 mg-albuterol 3 mg (2.5 mg base)/3 mL nebulization soln 3 ml inhalation Q4H PRN shortness of breath or wheezing #180 vials 05/11/23 [Rx Confirmed 08/11/23] tiotropium bromide 2.5 mcg/actuation mist for inhalation (Spiriva Respimat) 2 puff inhalation DAILY #3 Inhalers 05/11/23 [Rx Confirmed 08/11/23] blood sugar diagnostic ([employer] Ultra Test strips) #200 ea 06/09/23 [Rx Confirmed 07/15/23] empagliflozin 25 mg tablet 25 mg PO QAM #90 tabs 06/09/23 [Rx Confirmed 08/11/23] azelastine 137 mcg (0.1 %) nasal spray aerosol 1 spray intranasal BID #30 mL 07/02/23 [Rx Confirmed 08/11/23] losartan 25 mg tablet 25 mg PO DAILY 07/04/23 [History Confirmed 08/11/23] metformin 500 mg tablet,extended release 24 hr 1,000 mg PO BID 07/04/23 [History Confirmed 08/11/23] aspirin 81 mg tablet,delayed release 81 mg PO QAM 07/08/23 [History Confirmed 08/11/23] mometasone-formoterol HFA 200 mcg-5 mcg/actuation aerosol inhaler (Dulera) 2 puff inhalation BID #13 grams 07/10/23 [Rx Confirmed 08/11/23] Active Medications Acetaminophen (Acetaminophen 325 Mg Tab) 650 mg PO Q4H PRN PRN Reason: Pain or Fever Stop: 09/11/23 02:31 Albuterol (Albut/Ipratrop 3mg/0.5mg Neb 3 Ml Vial) 3 ml NEB Q6R AURELIO; Protocol Stop: 09/11/23 06:59 Aspirin (Aspirin 81 Mg Ectab) 81 mg PO QAM [facility] Stop: 09/11/23 08:59 Azelastine HCl (Azelastine Hcl 0.1% Nasal 200 Sprays/27,400 Mcg Btl) 1 sprays KEENAN BID [facility] Stop: 09/11/23 08:59 Enoxaparin Sodium (Enoxaparin Inj 40 Mg/0.4 Ml Syr) 40 mg SQ Q24H AURELIO Stop: 09/11/23 08:59 Fentanyl Citrate (Fentanyl Bolus From Bag) 100 mcg IV Q60M PRN PRN Reason: Pain or Agitation Stop: 08/26/23 02:07 Fluticasone/Vilanterol (Fluticasone/Vilanterol 100/25mcg 14 Puffs/Inhaler) 1 puffs INH DAILY [facility] Stop: 09/11/23 08:59 Guaifenesin (Guaifenesin 600 Mg Tabcr) 1,200 mg PO Q12 AURELIO Stop: 09/11/23 08:59 Vasopressin 20 units/ Sodium (Chloride) 101 mls @ 12.12 mls/hr IV .Q8H20M AURELIO Stop: 09/11/23 01:59 Last Admin: 08/12/23 03:37 Dose: Not Given Norepinephrine Bitartrate (Levophed/D5w) 32 mg in 250 mls @ 6.375 mls/hr IV .Q24H AURELIO; Protocol Stop: 09/11/23 01:59 Last Admin: 08/12/23 02:30 Dose: 0.6 mcg/kg/min, 22.5 mls/hr Propofol (Diprivan) 1,000 mg in 100 mls @ 9.6 mls/hr IV .[id number] [facility]; Protocol Stop: 08/15/23 02:14 Last Admin: 08/12/23 04:03 Dose: 50 mcg/kg/min, 24 mls/hr Fentanyl Citrate (Fentanyl Citrate) 2,500 mcg in 250 mls @ 7.5 mls/hr IV .[id number] AURELIO; Protocol Stop: 08/26/23 02:14 Last Admin: 08/12/23 02:30 Dose: 75 mcg/hr, 7.5 mls/hr Methylprednisolone 40 mg/ (Syringe) 0.64 mls @ 1.5 mls/min IV Q8H [facility] Stop: 09/11/23 05:59 Azithromycin 500 mg/ Dextrose 255 mls @ 125 mls/hr IV Q24H [facility] Stop: 08/20/23 05:59 Cefepime HCl 2,000 mg/ Syringe 20 mls @ 5 mls/min IV Q8H [facility]; Protocol Stop: 08/19/23 05:59 Levothyroxine Sodium (Levothyroxine Sodium 88 Mcg Tablet) 88 mcg PO DAILYBB [facility]LIO Stop: 09/11/23 06:29 Losartan Potassium (Losartan Potassium 25 Mg Tab) 25 mg PO DAILY AURELIO Stop: 09/11/23 08:59 Miscellaneous (Icu Protocol For Hyperglycemia) 1 each N/A ACHS [facility] Stop: 08/14/23 07:29 Ondansetron HCl (Ondansetron Inj 2 Mg/Ml 2 Ml Vial) 4 mg IV Q6H PRN PRN Reason: Nausea Stop: 09/11/23 02:31 Propofol (Propofol Bolus From Bag) 20 mg IV Q5M PRN PRN Reason: Sedation Stop: 08/15/23 02:07 Umeclidinium [place] (Umeclidinium [place] 62.5mcg/Blister 7 Puffs/Inhaler) 1 puffs INH DAILY AURELIO Stop: 09/11/23 08:59 ECG Additional Comments: Sinus tachycardia with junctional escape complexes T wave abnormality, consider inferior ischemia Abnormal ECG When compared with ECG of 04-JUL-2023 10:07, IA interval has decreased Sinus rhythm is now with junctional escape complexes Nonspecific T wave abnormality now evident in Inferior leads Nonspecific T wave abnormality no longer evident in Lateral leads Coding Level of Care Code 39181 CRITICAL CARE EA ADD 30M Diagnoses Respiratory failure J96.90 Required emergent intubation Z98.890 Pneumonia J18.9 CAD (coronary artery disease) I25.10 Hypertension I10 Simple chronic bronchitis J44.9 Type 2 diabetes mellitus with microalbuminuria E11.29; R80.9 BPH (benign prostatic hyperplasia) N40.0 Hyperlipidemia E78.5 Hypothyroidism E03.9 Hematuria R31.9 Inguinal hernia K40.90
[2023-08-12] MEDS: LACTATED RINGER'S 500 ML IV ONE ×2 (03:31→05:57)
[2023-08-12 03:32] LABS: iSTAT Art Bld Gas pCO2 Correct 68 mmHg (35-46); iSTAT Art Bld Gas pH Corrected 7.116 (7.35-7.45); iSTAT Arterial Blood Gas HCO3 22 meg/L (19-24); iSTAT Arterial Blood Gas pCO2 72 mmHg (35-46); iSTAT Arterial Blood Gas pO2 98 mmHg (80-95); iSTAT Arterial Blood Gas pO2 C 89; iSTAT Carbon Dioxide 24 mmol/L (24-31); iSTAT FiO2 60 %; iSTAT Hematocrit 52 % (42-52); iSTAT Hemoglobin 17.7 g/dl (14.0-18.0); iSTAT Potassium 3.6 mmol/L (3.3-5.0); iSTAT Site Art Line; iSTAT Sodium 137 mmol/L (135-144)
[2023-08-12] MEDS: SODIUM BICARB 8.4% INJ 50 MEQ/50 ML SYR IV ONE ×2 (03:35→03:36)
[2023-08-12] MEDS: fentaNYL citrate 2,500 MCG/250 ML BAG IV ONE (03:36)
[2023-08-12] MEDS: VASOPRESSIN 20 UNITS in 0.9 % SODIUM CHLORIDE 100 ML IV SCH (03:37)
[2023-08-12] MEDS: MIDAZOLAM HCL 5 MG/ML 2ML VIAL IV STA (03:39)
[2023-08-12] MEDS: VECURONIUM BROMIDE 10 MG VIAL IV ONE (03:40)
[2023-08-12] MEDS: propofoL 1,000 MG/100 ML VIAL IV SCH (04:03)
[2023-08-12 04:16] LABS: Hematocrit (blood only) 52.6 % (42.0-52.0); Hemoglobin 16.7 g/dl (14.0-18.0); Mean Corpuscular Hemoglobin 29.4 pg (25.0-34.0); Mean Corpuscular Hgb Conc 31.7 g/dL (32.0-36.0); Mean Corpuscular Volume 92.6 fL (80.0-100.0); Mean Platelet Volume 10.4 fL (9.4-12.4); Platelet Count 319 K/uL (130-400); RDW Coefficient of Variation 14.1 % (11.5-14.5); RDW Standard Deviation 48.1 fL (36.4-46.3); Red Blood Count 5.68 M/uL (4.70-6.10)
[2023-08-12 04:17] LABS: Albumin Level 3.8 gm/dl (3.4-5.0); BUN Creatinine Ratio 34.2 (10-20); Calcium 7.7 mg/dl (8.6-10.3); Creatinine Clr Calc Pharmacy 72.9 ml/min; Est GFR (African American) 97.6 ml/min; Est GFR (Non-African American) 84.2 ml/min; Magnesium 1.7 mg/dl (1.7-2.4); Phosphorus 4.4 mg/dl (2.5-4.9); Potassium 3.9 mmol/L (3.5-5.1)
[2023-08-12] MEDS: PHENYLEPHRINE/NSS 25 MG/250 ML BAG IV SCH (04:18)
[2023-08-12 04:20] LABS: Basophils # (auto) 0.15 K/uL (0.00-0.20); Basophils % (auto) 0.5 %; Echinocytes 2+; Eosinophils # (auto) 0.05 K/uL (0.00-0.50); Eosinophils % (auto) 0.2 %; Immature Granulocytes # (auto) 0.77 K/uL (0.01-0.20); Immature Granulocytes % (auto) 2.6 %; Lymphocytes # (auto) 1.33 K/uL (1.20-3.40); Lymphocytes % (auto) 4.6 %; Monocytes # (auto) 1.22 K/uL (0.11-0.59); Monocytes % (auto) 4.2 %; Neutrophils # (auto) 25.68 K/uL (1.40-6.50); Neutrophils % (auto) 87.9 %
[2023-08-12 04:30] LABS: Fibrinogen 466 mg/dl (184-400); INR 1.1 (0.9-1.1); Prothrombin Time 11.9 Seconds (9.0-12.0)
--- NOTE | 2023-08-12 04:39 | Billing Data ---
Date of Service August 12, 2023 Coding Level of Care Code 93290 CRITICAL CARE
[2023-08-12 04:52] LABS: iSTAT Art Bld Gas pCO2 Correct 55 mmHg (35-46); iSTAT Arterial Blood Gas HCO3 21 meg/L (19-24); iSTAT Arterial Blood Gas pCO2 58 mmHg (35-46); iSTAT Arterial Blood Gas pH 7.17 (7.35-7.45); iSTAT Arterial Blood Gas pO2 89 mmHg (80-95); iSTAT Arterial Blood Gas pO2 C 84; iSTAT Carbon Dioxide 23 mmol/L (24-31); iSTAT FiO2 45 %; iSTAT Hematocrit 53 % (42-52); iSTAT Potassium 3.9 mmol/L (3.3-5.0); iSTAT Site Art Line; iSTAT Sodium 139 mmol/L (135-144)
[2023-08-12] MEDS: MAGNESIUM SULFATE / D5W 1 GM/100 ML BAG IV SCH (05:01)
[2023-08-12] MEDS ORDERED: GLUCAGON FOR INJ 1 MG VIAL SQ PRN (05:09)
[2023-08-12] MEDS ORDERED: GLUCOSE 40% GEL 15 GM TUBE PO PRN (05:09)
[2023-08-12] MEDS ORDERED: GLUCOSE 10 TAB/TUBE PO PRN (05:09)
[2023-08-12] MEDS ORDERED: INSULIN PROTOCOL GOAL RANGE ONE (05:09)
[2023-08-12] MEDS ORDERED: SEVERE STRESS LEVEL ONE (05:09)
[2023-08-12] MEDS ORDERED: CARBOHYDRATES FOR HYPOGLYCEMIA PO PRN (05:09)
[2023-08-12] MEDS: OPTIRAY 320 125ml IV ONE (05:45)
[2023-08-12] MEDS: INSULIN REGULAR 250 UNITS in SODIUM CHLORIDE 0.9% 247.5 ML IV SCH (05:58)
[2023-08-12] MEDS: methylPREDNISolone 40 MG in SYRINGE 0 ML IV SCH (05:58)
[2023-08-12] MEDS: CEFEPIME 2,000 MG in SYRINGE 0 ML IV SCH (05:58)
[2023-08-12] MEDS: NovoLIN-R BOLUS FROM BAG IV ONE (05:59)
--- NOTE | 2023-08-12 06:08 | CT Scan Report ---
Exam(s): CTA CHEST IV Amt: 116 ml optiray 320 EXAM: CT Angiography Chest With Intravenous Contrast CLINICAL HISTORY: Reason for exam: PE. TECHNIQUE: Axial computed tomographic angiography images of the chest with intravenous contrast. Automated exposure control was utilized for the study. A dose lowering technique was utilized adhering to the principles of ALARA. MIP reconstructed images were created and reviewed. COMPARISON: No relevant prior studies available. FINDINGS: Pulmonary arteries: Motion affect limits diagnostic accuracy. Despite this, no evidence of pulmonary embolism within the pulmonary outflow tract or immediate proximal branches. Aorta: Atherosclerotic disease. No thoracic aortic aneurysm. Lungs: Severe upper lobe predominant centrilobular emphysema. Dependent consolidation at the lung bases appear findings likely relate to infection/aspiration changes. Pleural space: Small bilateral pleural effusions, likely reactive. No pneumothorax. Heart: Unremarkable. No cardiomegaly. No significant pericardial effusion. No evidence of RV dysfunction. Mediastinum: Mild esophageal thickening which may be inflammatory nature. 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 No acute fracture. No dislocation. Soft tissues: Unremarkable. Lymph nodes: Unremarkable. No enlarged lymph nodes. Kidneys and ureters: Right renal hypodensity in the superior pole measuring up to 1.5 cm which likely relates to a cyst. Consider dedicated imaging on a nonemergent basis. Tubes, lines and devices: Gastric drainage tube with tip noted in the gastric body. The endotracheal tube (ETT) is in satisfactory position with tip 1.3 cm above the sabiha. IMPRESSION: 1. Motion affect limits diagnostic accuracy. Despite this, no evidence of pulmonary embolism within the pulmonary outflow tract or immediate proximal branches. 2. Dependent consolidation at the lung bases appear findings likely relate to infection/aspiration changes. 3. Small bilateral pleural effusions, likely reactive. 4. Right renal hypodensity in the superior pole measuring up to 1.5 cm which likely relates to a cyst. Consider dedicated imaging on a nonemergent basis. Electronically signed by: Moisés Sanchez MD 08/12/23 06:07 AM
[2023-08-12 06:22] LABS: Appearance Urine Cloudy (Clear); Bilirubin Urine Negative (Negative); Blood Urine 3+ (Negative); Color Urine Red; Glucose Urine UA 3+ (Negative); Ketones Urine 1+ (Negative); Leukocyte Esterase Urine Negative (Negative); Nitrite Urine Negative (Negative); Protein Urine 3+ (Negative); Specific Gravity Urine 1.015 (1.000-1.030); Urobilinogen Urine Negative (Negative); pH Urine 5.5 (4.5-7.5)
[2023-08-12] MEDS: LEVOTHYROXINE SODIUM 88 MCG TABLET PO SCH (06:33)
[2023-08-12 06:46] LABS: Bacteria Urine Negative (Negative); RBC Urine >30 /hpf (0-4)
--- NOTE | 2023-08-12 07:07 | XRay Report ---
XR chest 1V portable, XR chest 1V portable CLINICAL HISTORY: ET Placement TECHNIQUE: Single frontal radiograph of the chest was obtained at 0101 hours and 0326 hours. Comparison: Comparison is made to chest radiograph 08/11/2023 FINDINGS: 0101 hours: An endotracheal tube terminates approximately 26 mm from the sabiha. The cardiomediastinal silhouette is normal. Extensive emphysema and interstitial thickening is seen. There is faint airspace opacity in the bilateral lower lungs. No evidence of pleural effusion or pneumothorax. 0326 hours: Endotracheal tube measures 2.7 cm from sabiha. Enteric tube tip and side-port lie below the diaphragm . Remaining findings are unchanged. IMPRESSION: 1. In the final image, endotracheal and enteric tubes are in satisfactory position. 2. Interstitial thickening and bilateral lower lung predominant airspace opacities. ACT 112: Negative or not required by law. Electronically signed by: Jorje Espinal M.D. 08/12/2023 7:05 AM
--- NOTE | 2023-08-12 07:16 | XRay Report ---
XR chest 1V not portable CLINICAL HISTORY: Chest pain, nonspecific TECHNIQUE: Single frontal radiograph of the chest was obtained. Comparison: Comparison is made to chest radiograph 07/24/2023 FINDINGS: No lines and tubes are seen. Calcified aortic knob is seen. Emphysema is seen. No evidence of pleural effusion or pneumothorax. IMPRESSION: Emphysema without acute abnormality. ACT 112: Negative or not required by law. Electronically signed by: Jorje Espinal M.D. 08/12/2023 7:14 AM
[2023-08-12] MEDS ORDERED: ICU Protocol for HYPERglycemia SCH (07:30)
--- NOTE | 2023-08-12 07:35 | Electrocardiogram Report ---
Test Reason : Blood Pressure : / mmHG Vent. Rate : 116 BPM Atrial Rate : 116 BPM P-R Int : 164 ms QRS Dur : 096 ms QT Int : 356 ms P-R-T Axes : 069 078 069 degrees QTc Int : 494 ms Sinus tachycardia with 1st degree A-V block with blocked PAC or sinus pause followed by ventricular e scape beat T wave abnormality, consider inferior ischemia Abnormal ECG When compared with ECG of 04-JUL-2023 10:07, HR has increased by 19 bpm Sinus rhythm is now with blocked PAC or pause Nonspecific T wave abnormality now evident in Inferior leads Confirmed by Etienne Perez ([id number]) on 08/12/2023 7:35:07 AM Referred By: REFERRED SELF Confirmed By:Etienne Perez
--- NOTE | 2023-08-12 07:48 | Hospitalist Progress Note ---
Date of Service August 12, 2023 Assessment & Plan (1) Respiratory failure: Plan: acute on chronic respiratory failure with hypoxia ( GOLD D COPD) with septic shock from multifocal pneumonia emergently intubated and ventialated MRSA swab negative Cefepime 2 g IV every 12 hours Azithromycin 500 mg IV daily Methylprednisolone 40 mg IV every 8 hours in pressors nor epi Duonebs every 4 hours while awake and every 2 hours when necessary. Patient is negative for COVID 19/influenza A and B, and RSV Contacted who does not live with pt, Terrie, will come to [facility], did state that previous discussion was not to have resuscitation, she will discuss further once she arrives -[phone] Fabian, is a local son estranged, lives next door to father, wishes for updates but does not wish to come to hospital [phone] (2) CAD (coronary artery disease): Plan: typically on aspirin, losartan (3) Type 2 diabetes mellitus with microalbuminuria: Plan: hold empagliflozin, on ssi and icu diabetic management (4) Inguinal hernia: Plan: Possible low-grade bowel obstruction surgical consult feels hernia is reduced at bedside 08/623 at 0929 Due to right inguinal hernia containing a small bowel loop as noted on CT NG tube to low intermittent suction Follow serial examinations Plan enoxaparin for DVT prevention full code Admission and Anticipated Discharge Date Admission Date: August 11, 2023 Subjective sedated and ventilated, no pressors Physical Exam Physical Exam: coarse bilateral breath sounds sedate Results & Data Results & Data Vital Signs (Past 12 Hours) Vital Signs Temp Pulse Pulse Resp BP BP Pulse Ox 08/12/23 05:07 90 28 H 100 08/12/23 04:00 08/12/23 04:00 96.8 F L 101 H 28 H 99 08/12/23 04:00 08/12/23 03:45 96.6 F L 103 H 28 H 100 08/12/23 03:30 96.3 F L 103 H 28 H 100 08/12/23 03:15 95.9 F L 109 H 16 100 08/12/23 03:00 95.5 F L 110 H 29 H 97 08/12/23 02:50 95.4 F L 104 H 28 H 99 08/12/23 02:50 175/99 H 08/12/23 02:45 95.2 F L 103 H 24 94 03/06/24 02:40 122/84 08/12/23 02:40 95.2 F L 100 H 26 H 100 08/12/23 02:35 95.2 F L 99 H 30 H 96 08/12/23 02:35 172/96 H 08/12/23 02:32 90 08/12/23 02:30 95.2 F L 119 H 22 98 08/12/23 02:30 149/105 H 08/12/23 02:20 162/121 H 08/12/23 02:20 95.0 F L 120 H 23 95 08/12/23 02:15 177/108 H 08/12/23 02:15 95.0 F L 110 H 27 H 96 08/12/23 02:14 181/103 H 08/12/23 02:14 94.8 F L 115 H 31 H 96 08/12/23 02:04 165/138 H 08/12/23 02:04 93.4 F L 122 H 14 98 08/12/23 02:01 155/133 H 08/12/23 02:01 118 H 21 100 08/12/23 02:00 114 H 21 99 08/12/23 01:49 123 H 18 88 L 08/12/23 01:49 125/99 08/12/23 01:30 101 H 22 100 08/12/23 01:24 102/71 08/12/23 01:24 120 H 11 L 97 08/12/23 01:23 82/67 L 08/12/23 01:23 125 H 20 98 08/12/23 01:22 127 H 15 99 08/12/23 01:22 79/59 L 08/12/23 01:16 125/97 08/12/23 01:16 130 H 23 100 08/12/23 01:13 80/54 L 08/12/23 01:13 133 H 22 95 08/12/23 01:10 76/51 L 08/12/23 01:10 134 H 17 93 08/12/23 01:06 123 H 21 95 08/12/23 01:06 52/34 L 08/12/23 01:04 59/38 L 08/12/23 01:04 147 H 16 95 08/12/23 01:02 59/33 L 08/12/23 01:02 147 H 24 89 L 08/12/23 01:00 138 H 10 L 89 L 08/12/23 01:00 57/43 L 08/12/23 00:52 121 H 25 H 74 L 08/12/23 00:52 158/68 H 08/12/23 00:51 124 H 29 H 08/12/23 00:50 128 H 08/11/23 23:41 83 20 140/76 91 08/11/23 20:12 93 08/11/23 20:07 97.7 F 110 H 22 129/84 85 L O2 Del Method O2 Flow Rate FiO2 08/12/23 05:07 45 08/12/23 04:00 Mechanical Vent 45 08/12/23 04:00 08/12/23 04:00 45 08/12/23 03:45 08/12/23 03:30 08/12/23 03:15 08/12/23 03:00 08/12/23 02:50 08/12/23 02:50 08/12/23 02:45 08/12/23 02:40 08/12/23 02:40 08/12/23 02:35 08/12/23 02:35 08/12/23 02:32 08/12/23 02:30 08/12/23 02:30 08/12/23 02:20 08/12/23 02:20 08/12/23 02:15 08/12/23 02:15 08/12/23 02:14 08/12/23 02:14 08/12/23 02:04 08/12/23 02:04 08/12/23 02:01 08/12/23 02:01 08/12/23 02:00 08/12/23 01:49 08/12/23 01:49 08/12/23 01:30 40 08/12/23 01:24 08/12/23 01:24 08/12/23 01:23 08/12/23 01:23 08/12/23 01:22 08/12/23 01:22 08/12/23 01:16 08/12/23 01:16 08/12/23 01:13 08/12/23 01:13 08/12/23 01:10 08/12/23 01:10 08/12/23 01:06 08/12/23 01:06 08/12/23 01:04 08/12/23 01:04 08/12/23 01:02 08/12/23 01:02 08/12/23 01:00 08/12/23 01:00 08/12/23 00:52 08/12/23 00:52 08/12/23 00:51 08/12/23 00:50 08/11/23 23:41 Nasal Cannula 3 08/11/23 20:12 Nasal Cannula 2 08/11/23 20:07 Room Air Laboratory Results reviewed CBC reviewed chemistry PG Care Time/CCT Total # of Minutes Spent Total Time Spent with Patient: Total time spent is greater than 50% in coordination of care (as documented) at patient's floor/unit and/or counseling patient: Coding Level of Care Code 02254 SUB INP/OBS CARE 3/50MIN Diagnoses Respiratory failure J96.90 CAD (coronary artery disease) I25.10 Type 2 diabetes mellitus with microalbuminuria E11.29; R80.9 Inguinal hernia K40.90
[2023-08-12] MEDS: ALBUT/IPRATROP 3MG/0.5MG NEB 3 ML VIAL NEB SCH (07:52)
[2023-08-12] MEDS: BUDESONIDE 0.25 MG/2 ML VIAL (PULMICORT) NEB SCH ×2 (07:52→19:11)
[2023-08-12] MEDS: AZELASTINE HCL 0.1% NASAL 200 SPRAYS/27,400 MCG BTL NAE SCH (08:21)
[2023-08-12] MEDS: INSULIN ASPART PER UNIT CHARGE SC SCH (08:21)
[2023-08-12] MEDS: ENOXAPARIN INJ 40 MG/0.4 ML SYR SQ SCH (08:25)
[2023-08-12] MEDS ORDERED: LOSARTAN POTASSIUM 25 MG TAB PO SCH (09:00)
[2023-08-12] MEDS ORDERED: UMECLIDINIUM BROMIDE 62.5MCG/BLISTER 7 PUFFS/INHALER INH SCH (09:00)
[2023-08-12] MEDS ORDERED: FLUTICASONE/VILANTEROL 100/25MCG 14 PUFFS/INHALER INH SCH (09:00)
[2023-08-12] MEDS: CALCIUM CHLORIDE 10% 1,000 MG in DEXTROSE 5% 50 ML IV STA (09:29)
--- NOTE | 2023-08-12 09:29 | Surgery Consultation ---
Date of Consultation August 12, 2023 Assessment & Plan (1) Inguinal hernia: (2) Acute respiratory failure with hypoxia: (3) Chronic obstructive pulmonary disease: (4) COPD, severe: Plan 82 year-old male with history of severe COPD and recurrent pneumonia presented to ED with hypoxia and shortness of breath. Became unresponsive in the emergency room with respiratory arrest and required intubation. CT scan of abdomen and pelvis showing right inguinal hernia containing loop of small bowel with possible SBO. Lactic acid normalized. Hernia was able to be reduced at bedside on examination. Unlikely ischemic bowel as lactic acid normalized. Would continue OGT for decompression. Dr. Castro has seen and examined patient. Supervising Physician Co-Signing Physician Notes I have seen and examined the patient and agree with the above assessment and plan. Of note, this patient is intubated and sedated. On exam, the right inguinal hernia appears to be reduced. The abdomen is soft with no peritoneal signs. Unlikely to be the source of patient's issues. Please call with any questions or concerns. History of Present Illness Reason for Consultation: Right inguinal hernia with possible SBO Requesting Physician: Dr. Reza Herrmann MD Attending Physician: Jon Mclain MD History of Present Illness The patient is an 82-year-old male with a past medical history including tobacco use disorder, CAD, hypertension, chronic bronchitis, chronic COPD, diabetes mellitus with microalbuminuria, BPH, severe COPD, hyperlipidemia and dysphagia. He was most recently admitted to [facility] from 07/04-07/07/2023 for pneumonia. History obtained by chart as patient intubated and sedated. He became unresponsive, was intubated, and patient was admitted to the ICU for ongoing care. En route to the ICU, patient had CT scan of head which was negative for acute event. Our services consulted as CT scan of abdomen and pelvis at that time showed a possible low-grade bowel obstruction due to a herniated small bowel loop within a right inguinal hernia. Allergies Allergy/AdvReac Type Severity Reaction Status Date / Time No Known Allergies Allergy Mild Verified 08/11/23 23:53 Home Medications Medication Instructions Recorded Confirmed Type Oxygen Home [id number] #1 ea 05/19/22 07/15/23 Rx levothyroxine 88 mcg tablet 88 mcg PO QAM #90 tabs 11/21/22 08/11/23 Rx albuterol sulfate 90 mcg/actuation 2 inh inhalation QID PRN shortness 04/15/23 08/11/23 Rx aerosol inhaler of breath or wheezing #18 grams ipratropium 0.5 mg-albuterol 3 mg 3 ml inhalation Q4H PRN shortness 05/11/23 08/11/23 Rx (2.5 mg base)/3 mL nebulization of breath or wheezing #180 vials soln tiotropium bromide 2.5 2 puff inhalation DAILY #3 Inhalers 05/11/23 08/11/23 Rx mcg/actuation mist for inhalation (Spiriva Respimat) blood sugar diagnostic (OneTouch #200 ea 06/09/23 07/15/23 Rx Ultra Test strips) empagliflozin 25 mg tablet 25 mg PO QAM #90 tabs 06/09/23 08/11/23 Rx azelastine 137 mcg (0.1 %) nasal 1 spray intranasal BID #30 mL 07/02/23 08/11/23 Rx spray aerosol losartan 25 mg tablet 25 mg PO DAILY 07/04/23 08/11/23 History metformin 500 mg tablet,extended 1,000 mg PO BID 07/04/23 08/11/23 History release 24 hr aspirin 81 mg tablet,delayed 81 mg PO QAM 07/08/23 08/11/23 History release mometasone-formoterol HFA 200 2 puff inhalation BID #13 grams 07/10/23 08/11/23 Rx mcg-5 mcg/actuation aerosol inhaler (Dulera) Patient History Medical History Hypertension Chronic bronchitis Chronic obstructive pulmonary disease Type 2 diabetes mellitus with microalbuminuria Tobacco abuse Neck pain Abnormal chest CT Pneumonia Severe protein-calorie malnutrition Pneumonia Hyperlipidemia Hypersomnolence COPD with emphysema inhalers daily/prn, nebulizer prn COPD (chronic obstructive pulmonary disease) case management patient Acquired deviated nasal septum Actinic keratosis Chronic gout Frequent PVCs Hypothyroidism Incidental lung nodule, > 3mm and < 8mm Tobacco use Chronic diarrhea Surgical History Hx of vasectomy History of colonoscopy last 2018 History of Mohs micrographic surgery for skin cancer x3 History of wisdom tooth extraction History of bilateral cataract extraction History of appendectomy History of tonsillectomy Family History Other No family history of adverse response to anesthesia Denies family history of Ovarian cancer Prostate cancer Myocardial infarction Breast cancer Colorectal cancer Social History Smoking Status: Former smoker Tobacco Type: Cigarettes Cigarettes Per Day: 3 pack/day; Second Hand Exposure: No; Do You Dip or Chew Tobacco: No; Hx Alcohol Use: No Hx Substance Use: No Preferred Language: [place] Communication Ability: Impaired Visual Impairment: No Limitations Hearing Ability: Normal [place] Required: No Beliefs That Will Affect Care: None marital status: Single Current Living Situation: Alone current occupational status: retired How many Children do You have: 1 Feels Safe at Home: Yes Dental Care, Regularly: Yes Physical Activity Frequency: 1-2 Times per Week Seatbelt Use: always Sunscreen Use: No Assistive Devices: Oxygen - Continuous Review of Systems Review of Systems: Unobtainable due to endotracheal tube Physical Exam 2 Constitutional: + mechanically ventilated sedated Gastrointestinal (Abdomen): Inspection/Auscultation: abdomen normal to inspection and + abdominal surgical scar (Right lower groin scar); abdomen not distended Percussion/Palpation: abdomen soft and + hernia; abdomen not rigid and abdomen not firm There is no visible bulge in the RLQ on visual inspection. With patient lying flat there was a small hernia palpable which was able to be reduced. No overlying edema or skin changes. no guarding again examination. Results & Data Vital Signs (Past 12 Hours) Vital Signs Temp Pulse Pulse Resp BP BP Pulse Ox 08/12/23 08:17 50 L 28 H 97 08/12/23 05:07 90 28 H 100 08/12/23 04:00 08/12/23 04:00 36.0 C L 101 H 28 H 99 08/12/23 04:00 08/12/23 03:45 35.9 C L 103 H 28 H 100 08/12/23 03:30 35.7 C L 103 H 28 H 100 08/12/23 03:15 35.5 C L 109 H 16 100 08/12/23 03:00 35.3 C L 110 H 29 H 97 08/12/23 02:50 35.2 C L 104 H 28 H 99 08/12/23 02:50 175/99 H 08/12/23 02:45 35.1 C L 103 H 24 94 08/12/23 02:40 122/84 08/12/23 02:40 35.1 C L 100 H 26 H 100 08/12/23 02:35 35.1 C L 99 H 30 H 96 08/12/23 02:35 172/96 H 08/12/23 02:32 90 08/12/23 02:30 35.1 C L 119 H 22 98 08/12/23 02:30 149/105 H 08/12/23 02:20 162/121 H 08/12/23 02:20 35.0 C L 120 H 23 95 08/12/23 02:15 177/108 H 08/12/23 02:15 35.0 C L 110 H 27 H 96 08/12/23 02:14 181/103 H 08/12/23 02:14 34.9 C L 115 H 31 H 96 08/12/23 02:04 165/138 H 08/12/23 02:04 34.1 C L 122 H 14 98 08/12/23 02:01 155/133 H 08/12/23 02:01 118 H 21 100 08/12/23 02:00 114 H 21 99 08/12/23 01:49 123 H 18 88 L 08/12/23 01:49 125/99 08/12/23 01:30 101 H 22 100 08/12/23 01:24 102/71 08/12/23 01:24 120 H 11 L 97 08/12/23 01:23 82/67 L 08/12/23 01:23 125 H 20 98 08/12/23 01:22 127 H 15 99 08/12/23 01:22 79/59 L 08/12/23 01:16 125/97 08/12/23 01:16 130 H 23 100 08/12/23 01:13 80/54 L 08/12/23 01:13 133 H 22 95 08/12/23 01:10 76/51 L 08/12/23 01:10 134 H 17 93 08/12/23 01:06 123 H 21 95 08/12/23 01:06 52/34 L 08/12/23 01:04 59/38 L 08/12/23 01:04 147 H 16 95 08/12/23 01:02 59/33 L 08/12/23 01:02 147 H 24 89 L 08/12/23 01:00 138 H 10 L 89 L 08/12/23 01:00 57/43 L 08/12/23 00:52 121 H 25 H 74 L 08/12/23 00:52 158/68 H 08/12/23 00:51 124 H 29 H 08/12/23 00:50 128 H 08/11/23 23:41 83 20 140/76 91 O2 Del Method O2 Flow Rate FiO2 08/12/23 08:17 45 08/12/23 05:07 45 08/12/23 04:00 Mechanical Vent 45 08/12/23 04:00 08/12/23 04:00 45 08/12/23 03:45 08/12/23 03:30 08/12/23 03:15 08/12/23 03:00 08/12/23 02:50 08/12/23 02:50 08/12/23 02:45 08/12/23 02:40 08/12/23 02:40 08/12/23 02:35 08/12/23 02:35 08/12/23 02:32 08/12/23 02:30 08/12/23 02:30 08/12/23 02:20 08/12/23 02:20 08/12/23 02:15 08/12/23 02:15 08/12/23 02:14 08/12/23 02:14 08/12/23 02:04 08/12/23 02:04 08/12/23 02:01 08/12/23 02:01 08/12/23 02:00 08/12/23 01:49 08/12/23 01:49 08/12/23 01:30 40 08/12/23 01:24 08/12/23 01:24 08/12/23 01:23 08/12/23 01:23 08/12/23 01:22 08/12/23 01:22 08/12/23 01:16 08/12/23 01:16 08/12/23 01:13 08/12/23 01:13 08/12/23 01:10 08/12/23 01:10 08/12/23 01:06 08/12/23 01:06 08/12/23 01:04 08/12/23 01:04 08/12/23 01:02 08/12/23 01:02 08/12/23 01:00 08/12/23 01:00 08/12/23 00:52 08/12/23 00:52 08/12/23 00:51 08/12/23 00:50 08/11/23 23:41 Nasal Cannula 3 Laboratory Results 08/12/23 08/12/23 08/12/23 Range/Units Unknown 11:09 09:55 WBC (4.8-10.8) K/ul RBC (4.70-6.10) M/uL Hgb (14.0-18.0) g/dl POC Hgb (14.0-18.0) g/dl Hct (42.0-52.0) % POC Hct (42-52) % MCV (80.0-100.0) fL MCH (25.0-34.0) pg MCHC (32.0-36.0) g/dL RDW Std Deviation (36.4-46.3) fL RDW Coeff of Samantha (11.5-14.5) % Plt Count (130-400) K/uL MPV (9.4-12.4) fL Immature Gran % (Auto) % Neut % (Auto) % Lymph % (Auto) % Andrews % (Auto) % Eos % (Auto) % Baso % (Auto) % Neut # (Auto) (1.40-6.50) K/uL Lymph # (Auto) (1.20-3.40) K/uL Andrews # (Auto) (0.11-0.59) K/uL Eos # (Auto) (0.00-0.50) K/uL Baso # (Auto) (0.00-0.20) K/uL Immature Gran # (Auto) (0.01-0.20) K/uL Echinocytes PT (9.0-12.0) Seconds INR (0.9-1.1) APTT (21-31) Seconds PTT Ratio Fibrinogen (184-400) mg/dl Sample Site POC pH (7.35-7.45) POC pCO2 (35-46) mmHg POC pO2 (80-95) mmHg POC HCO3 (19-24) alexandria/L POC Total CO2 (24-31) mmol/L POC Base Excess (-9-1.8) alexandria/L ABG pH (Temp Correct) (7.35-7.45) ABG pCO2 (Temp Corrct (35-46) mmHg POC ABG pO2 at Pt Temp POC ABG O2 Sat (90-95) % Chandra Test VBG pH (7.36-7.41) VBG pCO2 (38-50) mmHg VBG pO2 mmHg VBG HCO3 mmol/L VBG O2 Saturation % VBG Base Excess mEq/L O2 Delivery Device POC O2 Rate Minute Ventilation POC FiO2 % Tidal Volume PEEP POC Sodium (135-144) mmol/L Sodium (136-145) mmol/L POC Potassium (3.3-5.0) mmol/L Potassium (3.5-5.1) mmol/L Chloride (98-107) mmol/L Carbon Dioxide (21-32) mmol/L Anion Gap (3-11) BUN (6-23) mg/dl Creatinine (0.6-1.4) mg/dl Est Cr Clr Drug Dosing ml/min Est GFR ( Amer) ml/min Est GFR (Non-Af Amer) ml/min BUN/Creatinine Ratio (10-20) Glucose (70-99(Fasting)) mg/dl POC Glucose (70-99) mg/dl POC Glucose (other) 201 H 226 H (70-99) mg/dl Lactate (0.4-2.0) mmol/L Calcium (8.6-10.3) mg/dl Phosphorus (2.5-4.9) mg/dl Magnesium (1.7-2.4) mg/dl Total Bilirubin (0.2-1.0) mg/dl AST (13-39) U/L ALT (7-52) U/L Alkaline Phosphatase (34-104) U/L Troponin I High Sens (0-20) pg/ml Total Protein (6.0-8.3) gm/dl Albumin (3.4-5.0) gm/dl Globulin (2.5-4.0) gm/dl Albumin/Globulin Ratio (0.9-2) Procalcitonin (0-0.5) ng/ml Random Cortisol mcg/dl Urine Color Red Urine Appearance Cloudy A (Clear) Urine pH 5.5 (4.5-7.5) Ur Specific Friendship 1.015 (1.000-1.030) Urine Protein 3+ H (Negative) Urine Glucose (UA) 3+ H (Negative) Urine Ketones 1+ H (Negative) Urine Blood 3+ H (Negative) Urine Nitrite Negative (Negative) Urine Bilirubin Negative (Negative) Urine Urobilinogen Negative (Negative) Ur Leukocyte Esterase Negative (Negative) Urine RBC >30 H (0-4) /hpf Urine WBC 10-30 H (0-5) /hpf Ur Epithelial Cells 5-10 H (0-5) /lpf Urine Bacteria Negative (Negative) Nasal Screen MRSA (PCR) Negative (Negative) Adenovirus (PCR) (NotDetected) B. pertussis DNA (PCR) (NotDetected) B.parapertussis DNA PCR (NotDetected) C. pneumoniae DNA (PCR) (NotDetected) Coronavirus OC43 (PCR) (NotDetected) Coronavirus HKU1 (PCR) (NotDetected) Coronavirus 229E (PCR) (NotDetected) SARS-CoV-2 (PCR) (Negative) Coronavirus NL63 (PCR) (NotDetected) Human Metapneumovir PCR (NotDetected) Influenza Type A (PCR) (Neg) Influenza Type B (PCR) (Neg) M. pneumoniae (PCR) (NotDetected) Parainfluenza 1 (PCR) (NotDetected) Parainfluenza 2 (PCR) (NotDetected) Parainfluenza 3 (PCR) (NotDetected) Parainfluenza 4 (PCR) (NotDetected) RSV (RT-PCR) (Neg) RSV (PCR) (NotDetected) Entero/Rhino (PCR) (NotDetected) 08/12/23 08/12/23 08/12/23 Range/Units 09:51 08:30 07:34 WBC (4.8-10.8) K/ul RBC (4.70-6.10) M/uL Hgb (14.0-18.0) g/dl POC Hgb 17.0 (14.0-18.0) g/dl Hct (42.0-52.0) % POC Hct 50 (42-52) % MCV (80.0-100.0) fL MCH (25.0-34.0) pg MCHC (32.0-36.0) g/dL RDW Std Deviation (36.4-46.3) fL RDW Coeff of Samantha (11.5-14.5) % Plt Count (130-400) K/uL MPV (9.4-12.4) fL Immature Gran % (Auto) % Neut % (Auto) % Lymph % (Auto) % Andrews % (Auto) % Eos % (Auto) % Baso % (Auto) % Neut # (Auto) (1.40-6.50) K/uL Lymph # (Auto) (1.20-3.40) K/uL Andrews # (Auto) (0.11-0.59) K/uL Eos # (Auto) (0.00-0.50) K/uL Baso # (Auto) (0.00-0.20) K/uL Immature Gran # (Auto) (0.01-0.20) K/uL Echinocytes PT (9.0-12.0) Seconds INR (0.9-1.1) APTT (21-31) Seconds PTT Ratio Fibrinogen (184-400) mg/dl Sample Site Art Line POC pH 7.30 L (7.35-7.45) POC pCO2 35 (35-46) mmHg POC pO2 97 H (80-95) mmHg POC HCO3 17 L (19-24) alexandria/L POC Total CO2 18 L (24-31) mmol/L POC Base Excess -9.0 (-9-1.8) alexandria/L ABG pH (Temp Correct) 7.310 L (7.35-7.45) ABG pCO2 (Temp Corrct 34 L (35-46) mmHg POC ABG pO2 at Pt Temp 93 POC ABG O2 Sat 97.0 H (90-95) % Chandra Test NA VBG pH (7.36-7.41) VBG pCO2 (38-50) mmHg VBG pO2 mmHg VBG HCO3 mmol/L VBG O2 Saturation % VBG Base Excess mEq/L O2 Delivery Device Ventilator POC O2 Rate 28 Minute Ventilation 12.6 POC FiO2 45 % Tidal Volume 450 PEEP 5 POC Sodium 138 (135-144) mmol/L Sodium (136-145) mmol/L POC Potassium 3.5 (3.3-5.0) mmol/L Potassium (3.5-5.1) mmol/L Chloride (98-107) mmol/L Carbon Dioxide (21-32) mmol/L Anion Gap (3-11) BUN (6-23) mg/dl Creatinine (0.6-1.4) mg/dl Est Cr Clr Drug Dosing ml/min Est GFR ( Amer) ml/min Est GFR (Non-Af Amer) ml/min BUN/Creatinine Ratio (10-20) Glucose (70-99(Fasting)) mg/dl POC Glucose (70-99) mg/dl POC Glucose (other) 236 H 235 H (70-99) mg/dl Lactate (0.4-2.0) mmol/L Calcium (8.6-10.3) mg/dl Phosphorus (2.5-4.9) mg/dl Magnesium (1.7-2.4) mg/dl Total Bilirubin (0.2-1.0) mg/dl AST (13-39) U/L ALT (7-52) U/L Alkaline Phosphatase (34-104) U/L Troponin I High Sens (0-20) pg/ml Total Protein (6.0-8.3) gm/dl Albumin (3.4-5.0) gm/dl Globulin (2.5-4.0) gm/dl Albumin/Globulin Ratio (0.9-2) Procalcitonin (0-0.5) ng/ml Random Cortisol mcg/dl Urine Color Urine Appearance (Clear) Urine pH (4.5-7.5) Ur Specific Friendship (1.000-1.030) Urine Protein (Negative) Urine Glucose (UA) (Negative) Urine Ketones (Negative) Urine Blood (Negative) Urine Nitrite (Negative) Urine Bilirubin (Negative) Urine Urobilinogen (Negative) Ur Leukocyte Esterase (Negative) Urine RBC (0-4) /hpf Urine WBC (0-5) /hpf Ur Epithelial Cells (0-5) /lpf Urine Bacteria (Negative) Nasal Screen MRSA (PCR) (Negative) Adenovirus (PCR) (NotDetected) B. pertussis DNA (PCR) (NotDetected) B.parapertussis DNA PCR (NotDetected) C. pneumoniae DNA (PCR) (NotDetected) Coronavirus OC43 (PCR) (NotDetected) Coronavirus HKU1 (PCR) (NotDetected) Coronavirus 229E (PCR) (NotDetected) SARS-CoV-2 (PCR) (Negative) Coronavirus NL63 (PCR) (NotDetected) Human Metapneumovir PCR (NotDetected) Influenza Type A (PCR) (Neg) Influenza Type B (PCR) (Neg) M. pneumoniae (PCR) (NotDetected) Parainfluenza 1 (PCR) (NotDetected) Parainfluenza 2 (PCR) (NotDetected) Parainfluenza 3 (PCR) (NotDetected) Parainfluenza 4 (PCR) (NotDetected) RSV (RT-PCR) (Neg) RSV (PCR) (NotDetected) Entero/Rhino (PCR) (NotDetected) 08/12/23 08/12/23 08/12/23 Range/Units 06:03 04:35 03:39 WBC 29.20 H D (4.8-10.8) K/ul RBC 5.68 (4.70-6.10) M/uL Hgb 16.7 (14.0-18.0) g/dl POC Hgb 18.0 (14.0-18.0) g/dl Hct 52.6 H (42.0-52.0) % POC Hct 53 H (42-52) % MCV 92.6 (80.0-100.0) fL MCH 29.4 (25.0-34.0) pg MCHC 31.7 L (32.0-36.0) g/dL RDW Std Deviation 48.1 H (36.4-46.3) fL RDW Coeff of Samantha 14.1 (11.5-14.5) % Plt Count 319 (130-400) K/uL MPV 10.4 (9.4-12.4) fL Immature Gran % (Auto) 2.6 % Neut % (Auto) 87.9 % Lymph % (Auto) 4.6 % Andrews % (Auto) 4.2 % Eos % (Auto) 0.2 % Baso % (Auto) 0.5 % Neut # (Auto) 25.68 H (1.40-6.50) K/uL Lymph # (Auto) 1.33 (1.20-3.40) K/uL Andrews # (Auto) 1.22 H (0.11-0.59) K/uL Eos # (Auto) 0.05 (0.00-0.50) K/uL Baso # (Auto) 0.15 (0.00-0.20) K/uL Immature Gran # (Auto) 0.77 H (0.01-0.20) K/uL Echinocytes 2+ PT 11.9 (9.0-12.0) Seconds INR 1.1 (0.9-1.1) APTT (21-31) Seconds PTT Ratio Fibrinogen 466 H (184-400) mg/dl Sample Site Art Line POC pH 7.17 L* (7.35-7.45) POC pCO2 58 H (35-46) mmHg POC pO2 89 (80-95) mmHg POC HCO3 21 (19-24) alexandria/L POC Total CO2 23 L (24-31) mmol/L POC Base Excess -8.0 (-9-1.8) alexandria/L ABG pH (Temp Correct) 7.180 L* (7.35-7.45) ABG pCO2 (Temp Corrct 55 H (35-46) mmHg POC ABG pO2 at Pt Temp 84 POC ABG O2 Sat 94.0 (90-95) % Chandra Test NA VBG pH (7.36-7.41) VBG pCO2 (38-50) mmHg VBG pO2 mmHg VBG HCO3 mmol/L VBG O2 Saturation % VBG Base Excess mEq/L O2 Delivery Device Ventilator POC O2 Rate 28 Minute Ventilation POC FiO2 45 % Tidal Volume 450 PEEP 5 POC Sodium 139 (135-144) mmol/L Sodium 136 (136-145) mmol/L POC Potassium 3.9 (3.3-5.0) mmol/L Potassium 3.9 (3.5-5.1) mmol/L Chloride 105 (98-107) mmol/L Carbon Dioxide 21 (21-32) mmol/L Anion Gap 10 (3-11) BUN 27 H (6-23) mg/dl Creatinine 0.79 (0.6-1.4) mg/dl Est Cr Clr Drug Dosing 72.9 ml/min Est GFR ( Amer) 97.6 ml/min Est GFR (Non-Af Amer) 84.2 ml/min BUN/Creatinine Ratio 34.2 H (10-20) Glucose 319 H* (70-99(Fasting)) mg/dl POC Glucose (70-99) mg/dl POC Glucose (other) (70-99) mg/dl Lactate 1.4 2.1 H* (0.4-2.0) mmol/L Calcium 7.7 L (8.6-10.3) mg/dl Phosphorus 4.4 (2.5-4.9) mg/dl Magnesium 1.7 (1.7-2.4) mg/dl Total Bilirubin (0.2-1.0) mg/dl AST (13-39) U/L ALT (7-52) U/L Alkaline Phosphatase (34-104) U/L Troponin I High Sens (0-20) pg/ml Total Protein (6.0-8.3) gm/dl Albumin 3.8 (3.4-5.0) gm/dl Globulin (2.5-4.0) gm/dl Albumin/Globulin Ratio (0.9-2) Procalcitonin (0-0.5) ng/ml Random Cortisol 16.06 mcg/dl Urine Color Urine Appearance (Clear) Urine pH (4.5-7.5) Ur Specific Friendship (1.000-1.030) Urine Protein (Negative) Urine Glucose (UA) (Negative) Urine Ketones (Negative) Urine Blood (Negative) Urine Nitrite (Negative) Urine Bilirubin (Negative) Urine Urobilinogen (Negative) Ur Leukocyte Esterase (Negative) Urine RBC (0-4) /hpf Urine WBC (0-5) /hpf Ur Epithelial Cells (0-5) /lpf Urine Bacteria (Negative) Nasal Screen MRSA (PCR) (Negative) Adenovirus (PCR) (NotDetected) B. pertussis DNA (PCR) (NotDetected) B.parapertussis DNA PCR (NotDetected) C. pneumoniae DNA (PCR) (NotDetected) Coronavirus OC43 (PCR) (NotDetected) Coronavirus HKU1 (PCR) (NotDetected) Coronavirus 229E (PCR) (NotDetected) SARS-CoV-2 (PCR) (Negative) Coronavirus NL63 (PCR) (NotDetected) Human Metapneumovir PCR (NotDetected) Influenza Type A (PCR) (Neg) Influenza Type B (PCR) (Neg) M. pneumoniae (PCR) (NotDetected) Parainfluenza 1 (PCR) (NotDetected) Parainfluenza 2 (PCR) (NotDetected) Parainfluenza 3 (PCR) (NotDetected) Parainfluenza 4 (PCR) (NotDetected) RSV (RT-PCR) (Neg) RSV (PCR) (NotDetected) Entero/Rhino (PCR) (NotDetected) 08/12/23 08/12/23 08/12/23 Range/Units 03:12 02:09 00:51 WBC (4.8-10.8) K/ul RBC (4.70-6.10) M/uL Hgb (14.0-18.0) g/dl POC Hgb 17.7 17.7 (14.0-18.0) g/dl Hct (42.0-52.0) % POC Hct 52 52 (42-52) % MCV (80.0-100.0) fL MCH (25.0-34.0) pg MCHC (32.0-36.0) g/dL RDW Std Deviation (36.4-46.3) fL RDW Coeff of Samantha (11.5-14.5) % Plt Count (130-400) K/uL MPV (9.4-12.4) fL Immature Gran % (Auto) % Neut % (Auto) % Lymph % (Auto) % Andrews % (Auto) % Eos % (Auto) % Baso % (Auto) % Neut # (Auto) (1.40-6.50) K/uL Lymph # (Auto) (1.20-3.40) K/uL Andrews # (Auto) (0.11-0.59) K/uL Eos # (Auto) (0.00-0.50) K/uL Baso # (Auto) (0.00-0.20) K/uL Immature Gran # (Auto) (0.01-0.20) K/uL Echinocytes PT (9.0-12.0) Seconds INR (0.9-1.1) APTT (21-31) Seconds PTT Ratio Fibrinogen (184-400) mg/dl Sample Site Art Line R Radial POC pH 7.10 L* 6.98 L* (7.35-7.45) POC pCO2 72 H 89 H (35-46) mmHg POC pO2 98 H 102 H (80-95) mmHg POC HCO3 22 21 (19-24) alexandria/L POC Total CO2 24 24 (24-31) mmol/L POC Base Excess -7.0 -11.0 L (-9-1.8) alexandria/L ABG pH (Temp Correct) 7.116 L* 7.017 L* (7.35-7.45) ABG pCO2 (Temp Corrct 68 H 78 H (35-46) mmHg POC ABG pO2 at Pt Temp 89 84 POC ABG O2 Sat 94.0 92.0 (90-95) % Chandra Test NA Pass VBG pH (7.36-7.41) VBG pCO2 (38-50) mmHg VBG pO2 mmHg VBG HCO3 mmol/L VBG O2 Saturation % VBG Base Excess mEq/L O2 Delivery Device Ventilator Ventilator POC O2 Rate 28 20 Minute Ventilation POC FiO2 60 60 % Tidal Volume 385 385 PEEP 5 5 POC Sodium 137 139 (135-144) mmol/L Sodium (136-145) mmol/L POC Potassium 3.6 3.7 (3.3-5.0) mmol/L Potassium (3.5-5.1) mmol/L Chloride (98-107) mmol/L Carbon Dioxide (21-32) mmol/L Anion Gap (3-11) BUN (6-23) mg/dl Creatinine (0.6-1.4) mg/dl Est Cr Clr Drug Dosing ml/min Est GFR ( Amer) ml/min Est GFR (Non-Af Amer) ml/min BUN/Creatinine Ratio (10-20) Glucose (70-99(Fasting)) mg/dl POC Glucose 192 H (70-99) mg/dl POC Glucose (other) (70-99) mg/dl Lactate (0.4-2.0) mmol/L Calcium (8.6-10.3) mg/dl Phosphorus (2.5-4.9) mg/dl Magnesium (1.7-2.4) mg/dl Total Bilirubin (0.2-1.0) mg/dl AST (13-39) U/L ALT (7-52) U/L Alkaline Phosphatase (34-104) U/L Troponin I High Sens (0-20) pg/ml Total Protein (6.0-8.3) gm/dl Albumin (3.4-5.0) gm/dl Globulin (2.5-4.0) gm/dl Albumin/Globulin Ratio (0.9-2) Procalcitonin (0-0.5) ng/ml Random Cortisol mcg/dl Urine Color Urine Appearance (Clear) Urine pH (4.5-7.5) Ur Specific [place] (1.000-1.030) Urine Protein (Negative) Urine Glucose (UA) (Negative) Urine Ketones (Negative) Urine Blood (Negative) Urine Nitrite (Negative) Urine Bilirubin (Negative) Urine Urobilinogen (Negative) Ur Leukocyte Esterase (Negative) Urine RBC (0-4) /hpf Urine WBC (0-5) /hpf Ur Epithelial Cells (0-5) /lpf Urine Bacteria (Negative) Nasal Screen MRSA (PCR) (Negative) Adenovirus (PCR) (NotDetected) B. pertussis DNA (PCR) (NotDetected) B.parapertussis DNA PCR (NotDetected) C. pneumoniae DNA (PCR) (NotDetected) Coronavirus OC43 (PCR) (NotDetected) Coronavirus HKU1 (PCR) (NotDetected) Coronavirus 229E (PCR) (NotDetected) SARS-CoV-2 (PCR) (Negative) Coronavirus NL63 (PCR) (NotDetected) Human Metapneumovir PCR (NotDetected) Influenza Type A (PCR) (Neg) Influenza Type B (PCR) (Neg) M. pneumoniae (PCR) (NotDetected) Parainfluenza 1 (PCR) (NotDetected) Parainfluenza 2 (PCR) (NotDetected) Parainfluenza 3 (PCR) (NotDetected) Parainfluenza 4 (PCR) (NotDetected) RSV (RT-PCR) (Neg) RSV (PCR) (NotDetected) Entero/Rhino (PCR) (NotDetected) 08/11/23 08/11/23 08/11/23 Range/Units 23:34 20:53 20:53 WBC (4.8-10.8) K/ul RBC (4.70-6.10) M/uL Hgb (14.0-18.0) g/dl POC Hgb (14.0-18.0) g/dl Hct (42.0-52.0) % POC Hct (42-52) % MCV (80.0-100.0) fL MCH (25.0-34.0) pg MCHC (32.0-36.0) g/dL RDW Std Deviation (36.4-46.3) fL RDW Coeff of Samantha (11.5-14.5) % Plt Count (130-400) K/uL MPV (9.4-12.4) fL Immature Gran % (Auto) % Neut % (Auto) % Lymph % (Auto) % Andrews % (Auto) % Eos % (Auto) % Baso % (Auto) % Neut # (Auto) (1.40-6.50) K/uL Lymph # (Auto) (1.20-3.40) K/uL Andrews # (Auto) (0.11-0.59) K/uL Eos # (Auto) (0.00-0.50) K/uL Baso # (Auto) (0.00-0.20) K/uL Immature Gran # (Auto) (0.01-0.20) K/uL Echinocytes PT (9.0-12.0) Seconds INR (0.9-1.1) APTT (21-31) Seconds PTT Ratio Fibrinogen (184-400) mg/dl Sample Site POC pH (7.35-7.45) POC pCO2 (35-46) mmHg POC pO2 (80-95) mmHg POC HCO3 (19-24) [place]/L POC Total CO2 (24-31) mmol/L POC Base Excess (-9-1.8) [place]/L ABG pH (Temp Correct) (7.35-7.45) ABG pCO2 (Temp Corrct (35-46) mmHg POC ABG pO2 at Pt Temp POC ABG O2 Sat (90-95) % Chandra Test VBG pH 7.32 L (7.36-7.41) VBG pCO2 53 H (38-50) mmHg VBG pO2 < 20 mmHg VBG HCO3 27 mmol/L VBG O2 Saturation < 60.0 % VBG Base Excess 0.3 mEq/L O2 Delivery Device POC O2 Rate Minute Ventilation POC FiO2 % [place] Volume PEEP POC Sodium (135-144) mmol/L Sodium (136-145) mmol/L POC Potassium (3.3-5.0) mmol/L Potassium (3.5-5.1) mmol/L Chloride (98-107) mmol/L Carbon Dioxide (21-32) mmol/L Anion Gap (3-11) BUN (6-23) mg/dl Creatinine (0.6-1.4) mg/dl Est Cr Clr Drug Dosing ml/min Est GFR ( Amer) ml/min Est GFR (Non-Af Amer) ml/min BUN/Creatinine Ratio (10-20) Glucose (70-99(Fasting)) mg/dl POC Glucose (70-99) mg/dl POC Glucose (other) (70-99) mg/dl Lactate 1.2 (0.4-2.0) mmol/L Calcium (8.6-10.3) mg/dl Phosphorus (2.5-4.9) mg/dl Magnesium (1.7-2.4) mg/dl Total Bilirubin (0.2-1.0) mg/dl AST (13-39) U/L ALT (7-52) U/L Alkaline Phosphatase (34-104) U/L Troponin I High Sens (0-20) pg/ml Total Protein (6.0-8.3) gm/dl Albumin (3.4-5.0) gm/dl Globulin (2.5-4.0) gm/dl Albumin/Globulin Ratio (0.9-2) Procalcitonin (0-0.5) ng/ml Random Cortisol mcg/dl Urine Color Urine Appearance (Clear) Urine pH (4.5-7.5) Ur Specific Friendship (1.000-1.030) Urine Protein (Negative) Urine Glucose (UA) (Negative) Urine Ketones (Negative) Urine Blood (Negative) Urine Nitrite (Negative) Urine Bilirubin (Negative) Urine Urobilinogen (Negative) Ur Leukocyte Esterase (Negative) Urine RBC (0-4) /hpf Urine WBC (0-5) /hpf Ur Epithelial Cells (0-5) /lpf Urine Bacteria (Negative) Nasal Screen MRSA (PCR) (Negative) Adenovirus (PCR) (NotDetected) B. pertussis DNA (PCR) (NotDetected) B.parapertussis DNA PCR (NotDetected) C. pneumoniae DNA (PCR) (NotDetected) Coronavirus OC43 (PCR) (NotDetected) Coronavirus HKU1 (PCR) (NotDetected) Coronavirus 229E (PCR) (NotDetected) SARS-CoV-2 (PCR) (Negative) Coronavirus NL63 (PCR) (NotDetected) Human Metapneumovir PCR (NotDetected) Influenza Type A (PCR) Not Detected (Neg) Influenza Type B (PCR) Not Detected Negative (Neg) M. pneumoniae (PCR) Not Detected (NotDetected) Parainfluenza 1 (PCR) Not Detected (NotDetected) Parainfluenza 2 (PCR) Not Detected (NotDetected) Parainfluenza 3 (PCR) Not Detected (NotDetected) Parainfluenza 4 (PCR) Not Detected (NotDetected) RSV (RT-PCR) Negative (Neg) RSV (PCR) Not Detected (NotDetected) Entero/Rhino (PCR) Not Detected (NotDetected) 08/11/23 08/11/23 Range/Units 20:53 20:53 WBC 14.82 H (4.8-10.8) K/ul RBC 5.33 (4.70-6.10) M/uL Hgb 15.7 (14.0-18.0) g/dl POC Hgb (14.0-18.0) g/dl Hct 47.8 (42.0-52.0) % POC Hct (42-52) % MCV 89.7 (80.0-100.0) fL MCH 29.5 (25.0-34.0) pg MCHC 32.8 (32.0-36.0) g/dL RDW Std Deviation 47.5 H (36.4-46.3) fL RDW Coeff of Samantha 14.4 (11.5-14.5) % Plt Count 270 (130-400) K/uL MPV 10.3 (9.4-12.4) fL Immature Gran % (Auto) 0.9 % Neut % (Auto) 80.2 % Lymph % (Auto) 7.4 % Andrews % (Auto) 10.3 % Eos % (Auto) 0.7 % Baso % (Auto) 0.5 % Neut # (Auto) 11.87 H (1.40-6.50) K/uL Lymph # (Auto) 1.10 L (1.20-3.40) K/uL Andrews # (Auto) 1.53 H (0.11-0.59) K/uL Eos # (Auto) 0.11 (0.00-0.50) K/uL Baso # (Auto) 0.08 (0.00-0.20) K/uL Immature Gran # (Auto) 0.13 (0.01-0.20) K/uL Echinocytes PT 10.6 (9.0-12.0) Seconds INR 1.0 (0.9-1.1) APTT 27 (21-31) Seconds PTT Ratio 1.0 Fibrinogen (184-400) mg/dl Sample Site POC pH (7.35-7.45) POC pCO2 (35-46) mmHg POC pO2 (80-95) mmHg POC HCO3 (19-24) [place]andria/L POC Total CO2 (24-31) mmol/L POC Base Excess (-9-1.8) alexandria/L ABG pH (Temp Correct) (7.35-7.45) ABG pCO2 (Temp Corrct (35-46) mmHg POC ABG pO2 at Pt Temp POC ABG O2 Sat (90-95) % Chandra Test VBG pH (7.36-7.41) VBG pCO2 (38-50) mmHg VBG pO2 mmHg VBG HCO3 mmol/L VBG O2 Saturation % VBG Base Excess mEq/L O2 Delivery Device POC O2 Rate Minute Ventilation POC FiO2 % Tidal Volume PEEP POC Sodium (135-144) mmol/L Sodium 136 (136-145) mmol/L POC Potassium (3.3-5.0) mmol/L Potassium 4.0 (3.5-5.1) mmol/L Chloride 104 (98-107) mmol/L Carbon Dioxide 23 (21-32) mmol/L Anion Gap 9 (3-11) BUN 30 H (6-23) mg/dl Creatinine 0.80 (0.6-1.4) mg/dl Est Cr Clr Drug Dosing 72.0 ml/min Est GFR ( Amer) 97.1 ml/min Est GFR (Non-Af Amer) 83.8 ml/min BUN/Creatinine Ratio 37.5 H (10-20) Glucose 164 H (70-99(Fasting)) mg/dl POC Glucose (70-99) mg/dl POC Glucose (other) (70-99) mg/dl Lactate (0.4-2.0) mmol/L Calcium 9.4 (8.6-10.3) mg/dl Phosphorus (2.5-4.9) mg/dl Magnesium (1.7-2.4) mg/dl Total Bilirubin 0.7 (0.2-1.0) mg/dl AST 19 (13-39) U/L ALT 25 (7-52) U/L Alkaline Phosphatase 58 (34-104) U/L Troponin I High Sens 10.2 (0-20) pg/ml Total Protein 7.1 (6.0-8.3) gm/dl Albumin 4.3 (3.4-5.0) gm/dl Globulin 2.8 (2.5-4.0) gm/dl Albumin/Globulin Ratio 1.5 (0.9-2) Procalcitonin 0.06 (0-0.5) ng/ml Random Cortisol mcg/dl Urine Color Urine Appearance (Clear) Urine pH (4.5-7.5) Ur Specific Friend[place] (1.000-1.030) Urine Protein (Negative) Urine Glucose (UA) (Negative) Urine Ketones (Negative) Urine Blood (Negative) Urine Nitrite (Negative) Urine Bilirubin (Negative) Urine Urobilinogen (Negative) Ur Leukocyte Esterase (Negative) Urine RBC (0-4) /hpf Urine WBC (0-5) /hpf Ur Epithelial Cells (0-5) /lpf Urine Bacteria (Negative) Nasal Screen MRSA (PCR) (Negative) Adenovirus (PCR) Not Detected (NotDetected) B. pertussis DNA (PCR) Not Detected (NotDetected) B.parapertussis DNA PCR Not Detected (NotDetected) C. pneumoniae DNA (PCR) Not Detected (NotDetected) Coronavirus OC43 (PCR) Not Detected (NotDetected) Coronavirus HKU1 (PCR) Not Detected (NotDetected) Coronavirus 229E (PCR) Not Detected (NotDetected) SARS-CoV-2 (PCR) Not Detected NEGATIVE (Negative) Coronavirus NL63 (PCR) Not Detected (NotDetected) Human Metapneumovir PCR Not Detected (NotDetected) Influenza Type A (PCR) Negative (Neg) Influenza Type B (PCR) (Neg) M. pneumoniae (PCR) (NotDetected) Parainfluenza 1 (PCR) (NotDetected) Parainfluenza 2 (PCR) (NotDetected) Parainfluenza 3 (PCR) (NotDetected) Parainfluenza 4 (PCR) (NotDetected) RSV (RT-PCR) (Neg) RSV (PCR) (NotDetected) Entero/Rhino (PCR) (NotDetected) Diagnostic Findings Exam(s): CT ABDOMEN + PELVIS Without Contrast EXAM: CT Abdomen and Pelvis Without Intravenous Contrast CLINICAL HISTORY: Reason for exam: unresponsive episode. TECHNIQUE: Axial computed tomography images of the abdomen and pelvis without intravenous contrast. Automated exposure control was utilized for the study. A dose lowering technique was utilized adhering to the principles of ALARA. COMPARISON: CT chest today. FINDINGS: Lung bases: Bibasilar atelectasis/airspace disease. ABDOMEN: Liver: Unremarkable. Gallbladder and bile ducts: Unremarkable. No calcified stones. No ductal dilation. Pancreas: Unremarkable. No ductal dilation. Spleen: Unremarkable. No splenomegaly. Adrenals: Unremarkable. No mass. Kidneys and ureters: Unremarkable. No obstructing stones. No hydronephrosis. Stomach and bowel: Colonic diverticulosis. Bilateral inguinal hernias. Right inguinal hernia contains a small bowel loop. Proximal to it mildly distended small bowel loops with mottled contents and fluid. Left inguinal hernia containing fat. No mucosal thickening. PELVIS: Appendix: No findings to suggest acute appendicitis. Bladder: Unremarkable. No stones. Reproductive: Enlarged prostate. ABDOMEN and PELVIS: Intraperitoneal space: Unremarkable. No free air. No significant fluid collection. Bones/joints: Degenerative changes of the spine. No acute fracture. No dislocation. Soft tissues: See above. Vasculature: Moderate aortoiliac vascular calcifications. No abdominal aortic aneurysm. Lymph nodes: Unremarkable. No enlarged lymph nodes. Tubes, lines and devices: Enteric tube tip in the mid stomach. IMPRESSION: 1. Right inguinal hernia contains a small bowel loop. Proximal to it mildly distended small bowel loops with mottled contents and fluid. Possible low-grade bowel obstruction due to the herniated loop. 2. Bibasilar atelectasis/airspace disease. 3. Colonic diverticulosis.
[2023-08-12 10:07] LABS: iSTAT Art Bld Gas pCO2 Correct 34 mmHg (35-46); iSTAT Arterial Blood Gas HCO3 17 meg/L (19-24); iSTAT Arterial Blood Gas pCO2 35 mmHg (35-46); iSTAT Arterial Blood Gas pO2 97 mmHg (80-95); iSTAT Arterial Blood Gas pO2 C 93; iSTAT Carbon Dioxide 18 mmol/L (24-31); iSTAT FiO2 45 %; iSTAT Hematocrit 50 % (42-52); iSTAT Potassium 3.5 mmol/L (3.3-5.0); iSTAT Site Art Line; iSTAT Sodium 138 mmol/L (135-144)
[2023-08-12] MEDS: PANTOprazole 40 MG in SYRINGE DAILY IV SCH (10:53)
[2023-08-12] MEDS: FORMOTEROL 20 MCG/2 ML VIAL NEB SCH (11:30)
--- NOTE | 2023-08-12 11:30 | Procedure Note ---
Procedure Note: Bronchoscopy Procedure Procedure: Fiberoptic bronchoscopy Therapeutic aspiration of secretions, initial Provider: Reza Herrmann MD Consent: Procedure was emergent. Patient is intubated in the ICU on the ventilator and unable to provide verbal or written consent. No family immediately available Indication: Possible aspiration pneumonia EBL: None Procedure: Patient was intubated in the ICU on mechanical ventilator appropriate radiographic studies had been reviewed prior to the procedure. He remained hemodynamically monitored and oxygen was increased to an FiO2 of 100% After topical anesthesia of the airways per respiratory therapy protocol, the fiberoptic scope was advanced through the endotracheal tube via the adapter. The tube was approximately 1 to 2 cm above the sabiha. A sequential examination of the lower airways was conducted. There were thick mucoid secretions present in the bilateral lower lobes. A bronchial lavage was performed in the left lower lobe with specimens collected for microbiologic analysis. Secretions were cleared from the right lower lobe as well. There was no significant endobronchial abnormality and the patient tolerated the procedure well. The bronchoscope was then removed from the airways. The patient tolerated the procedure well without obvious complication. Patient was returned to the recovery room. Impression: 1. Endotracheal tube 1 to 2 cm above the sabiha. 2. Mucopurulent secretions in the bilateral lower lobes, await microbiologic analysis [facility] Procedure Codes (Charges) Pulmonary/Thoracic Procedure 1: Pulmonary and Thoracic: 93096 Dx bronchoscopy/wash
[2023-08-12] MEDS: ICU ELECTROLYTE REPLACEMENT PROTOCOL SCH (14:58)
[2023-08-12] MEDS ORDERED: Nursing to Pharmacy Communication SCH (15:00)
[2023-08-12] MEDS: Standard Conc; 4mg in 250mL IV SCH (15:16)
--- NOTE | 2023-08-12 15:55 | Electrocardiogram Report ---
Test Reason : Blood Pressure : / mmHG Vent. Rate : 071 BPM Atrial Rate : 071 BPM P-R Int : 320 ms QRS Dur : 100 ms QT Int : 420 ms P-R-T Axes : 086 078 071 degrees QTc Int : 456 ms Sinus rhythm with 1st degree A-V block with Blocked Premature atrial complexes Otherwise normal ECG When compared with ECG of 12-AUG-2023 01:47, Vent. rate has decreased BY 45 BPM Nonspecific T wave abnormality no longer evident in Inferior leads Confirmed by Etienne Perez ([id number]) on 08/12/2023 3:55:31 PM Referred By: REFERRED SELF Confirmed By:Etienne Perez
--- NOTE | 2023-08-12 16:21 | XCELERA ---
[id number] [id number]
--- NOTE | 2023-08-12 18:38 | Hospitalist Progress Note ---
Date of Service August 12, 2023 Assessment & Plan (1) Respiratory failure: Plan: acute on chronic respiratory failure with hypoxia ( GOLD D COPD) with septic shock from multifocal pneumonia emergently intubated and ventialated MRSA swab negative Cefepime 2 g IV every 12 hours Azithromycin 500 mg IV daily Methylprednisolone 40 mg IV every 8 hours in pressors nor epi Duonebs every 4 hours while awake and every 2 hours when necessary. Patient is negative for COVID 19/influenza A and B, and RSV Contacted who does not live with pt, Terrie, will come to hospital [facility], did state that previous discussion was not to have resuscitation, she will discuss further once she arrives [phone] Fabian, is a local son estranged, lives next door to father, wishes for updates but does not wish to come to hospital [phone] (2) CAD (coronary artery disease): Plan: typically on aspirin, losartan (3) Type 2 diabetes mellitus with microalbuminuria: Plan: hold empagliflozin, on ssi and icu diabetic management (4) Inguinal hernia: Plan: Possible low-grade bowel obstruction surgical consult feels hernia is reduced at bedside 08/623 at 0929 Due to right inguinal hernia containing a small bowel loop as noted on CT NG tube to low intermittent suction Follow serial examinations Plan enoxaparin for DVT prevention full code Admission and Anticipated Discharge Date Admission Date: August 12, 2023 Subjective sedated and ventilated, on pressors Physical Exam Physical Exam: coarse bilateral breath sounds sedate Results & Data Results & Data Vital Signs (Past 12 Hours) Vital Signs Temp Pulse Resp BP Pulse Ox O2 Del Method FiO2 08/12/23 16:00 98.6 F 82 28 H 92 08/12/23 16:00 104/67 08/12/23 16:00 45 08/12/23 15:30 80 29 H 93 45 08/12/23 15:00 98.4 F 80 28 H 93 08/12/23 15:00 112/70 08/12/23 14:00 113/67 08/12/23 14:00 98.2 F 76 28 H 94 08/12/23 13:00 123/67 08/12/23 13:00 97.9 F 59 L 28 H 93 08/12/23 12:00 97.7 F 55 L 28 H 95 08/12/23 12:00 125/68 08/12/23 12:00 45 08/12/23 11:36 63 28 H 96 45 08/12/23 11:35 Mechanical Vent 08/12/23 11:01 141/72 H 08/12/23 11:01 97.3 F L 52 L 28 H 96 08/12/23 11:00 97.3 F L 52 L 28 H 95 08/12/23 10:30 97.2 F L 53 L 28 H 96 08/12/23 10:00 97.2 F L 56 L 28 H 96 08/12/23 10:00 125/74 08/12/23 09:30 97.3 F L 68 28 H 96 08/12/23 09:00 97.5 F L 74 28 H 95 08/12/23 09:00 124/79 08/12/23 08:46 97.7 F 77 28 H 94 08/12/23 08:46 124/75 08/12/23 08:17 50 L 28 H 97 45 08/12/23 08:00 97.5 F L 66 28 H 96 Mechanical Vent 45 08/12/23 08:00 Mechanical Vent 45 08/12/23 08:00 45 08/12/23 07:00 96.8 F L 68 28 H 98 PG Care Time/CCT Total # of Minutes Spent Total Time Spent with Patient: Total time spent is greater than 50% in coordination of care (as documented) at patient's floor/unit and/or counseling patient: Coding Level of Care Code 42285 SUB INP/OBS CARE 3/50MIN Diagnoses Respiratory failure J96.90 CAD (coronary artery disease) I25.10 Type 2 diabetes mellitus with microalbuminuria E11.29; R80.9 Inguinal hernia K40.90
[2023-08-12] MEDS ORDERED: ETOMIDATE 2 MG/ML 20 ML VIAL IV ONE (21:03)
[2023-08-12] MEDS ORDERED: SUCCINYLCHOLINE CHLORIDE 20 MG/ML 10 ML VIAL IV ONE (21:03)
[2023-08-12] MEDS: PROPOFOL BOLUS FROM BAG IV PRN (21:29)
[2023-08-13] MEDS: LACTATED RINGER'S 250 ML IV ONE (03:07)
[2023-08-13 04:11] LABS: Basophils # (auto) 0.05 K/uL (0.00-0.20); Basophils % (auto) 0.2 %; Hematocrit (blood only) 43.9 % (42.0-52.0); Hemoglobin 14.6 g/dl (14.0-18.0); Immature Granulocytes # (auto) 0.23 K/uL (0.01-0.20); Immature Granulocytes % (auto) 1.1 %; Lymphocytes # (auto) 0.73 K/uL (1.20-3.40); Lymphocytes % (auto) 3.3 %; Mean Corpuscular Hemoglobin 29.4 pg (25.0-34.0); Mean Corpuscular Hgb Conc 33.3 g/dL (32.0-36.0); Mean Corpuscular Volume 88.3 fL (80.0-100.0); Mean Platelet Volume 10.5 fL (9.4-12.4); Monocytes # (auto) 1.34 K/uL (0.11-0.59); Monocytes % (auto) 6.1 %; Neutrophils # (auto) 19.48 K/uL (1.40-6.50); Neutrophils % (auto) 89.3 %; Platelet Count 289 K/uL (130-400); RDW Coefficient of Variation 14.2 % (11.5-14.5); RDW Standard Deviation 45.8 fL (36.4-46.3); Red Blood Count 4.97 M/uL (4.70-6.10); White Blood Count 21.83 K/ul (4.8-10.8)
[2023-08-13 04:41] LABS: Albumin Level 3.4 gm/dl (3.4-5.0); Calcium 8.6 mg/dl (8.6-10.3); Est GFR (African American) 99.7 ml/min; Magnesium 2.1 mg/dl (1.7-2.4); Phosphorus 3.1 mg/dl (2.5-4.9); Potassium 3.6 mmol/L (3.5-5.1)
[2023-08-13] MEDS: POTASSIUM CHLORIDE / WTR 20 MEQ/100 ML PLCT IV SCH (05:13)
[2023-08-13] MEDS: AZITHROMYCIN 250 MG in DEXTROSE 5% 250 ML IV SCH (05:14)
[2023-08-13] MEDS ORDERED: AZITHROMYCIN 500 MG in DEXTROSE 5% 250 ML IV SCH (06:00)
--- NOTE | 2023-08-13 07:30 | Critical Care Progress Note ---
Date of Service August 13, 2023 Assessment & Plan (1) Respiratory failure: (2) Required emergent intubation: (3) Pneumonia: (4) CAD (coronary artery disease): (5) Hypertension: (6) Chronic obstructive pulmonary disease: (7) Type 2 diabetes mellitus with microalbuminuria: (8) BPH (benign prostatic hyperplasia): (9) Hyperlipidemia: (10) Hypothyroidism: (11) Hematuria: (12) Inguinal hernia: Plan Reason Critically Ill: 82 YOM presents to ICU following respiratory arrest in setting of GOLD Stage D COPD and pneumonia. 24-hour events: Patient was admitted to the intensive care unit. Lines were placed. He underwent bronchoscopy with bronchial washings of the lower lobe. His pressor requirements have decreased overnight. Vent settings are also decreased Recommendations: Neuro -currently sedated with propofol and fentanyl. Will discontinue fentanyl and try sedation break today and see how he does. He appears to open his eyes to commands. Neurologically he was intact prior to his event. No indication for repeat imaging currently. Cardiac -profound hypotension. Levophed decreasing. Echocardiogram yesterday showed an EF of 55-60 with normal right ventricular size and function. Mild MR was noted. Right ventricular systolic pressures were normal. Cortisol 16 in the setting of shock is inappropriately low. Will discontinue Solu-Medrol and placed him on Solu-Cortef 50 mg IV every 6 as well as oral Florinef. Will add oral midodrine to see if we can get him off Levophed Respiratory -history of COPD with hypoxemic hypercarbic respiratory failure. Unclear etiology for the patient's arrest. Aspiration, mucous plugging, or abdominal pathology would all be in the differential. Regardless he appears to be improving. Will reassess with SBT once sedation is appropriate. Follow-up on bronchoscopy respiratory cultures. Continue nebulized Perforomist and budesonide and as needed DuoNebs. GI -bilateral inguinal hernias. Appreciate general surgery consultation. No indication for acute intervention currently. May need to follow-up in the outpatient setting. N.p.o. for now. Continue PPI. RENAL/LYTES - ICU electrolyte protocol. -Bonilla catheter in place. Continue to monitor intake and output at this point time. Mild hematuria secondary to traumatic placement of Bonilla. Clearing. Continue to follow. ENDO - glycemic control per protocol. Stress dose steroids for relative adrenal insufficiency as noted above. Continue Synthroid. HEME - No acute needs ID -day #2 cefepime azithromycin. Bronchoscopy specimens showed gram-negative rods and gram-positive cocci with many PMNs. Await cultures. Continue antibiotics for now. White blood cell count is improving. Patient remains afebrile. LINES/IV ACCESS - CVL, PIV, Bonita, BONILLA DVT PROPHYLAXIS - SCDS DISPO: ICU while intubated and sedated I have personally spent 55 minutes of critical care time in the direct management of this patient. This is a life/limb threatening event. This includes time spent evaluating patient, direct bedside care, chart review, placing orders, interpretation of diagnostic studies, discussion with consultants, patient, and family members, as well as other required patient management activities. This time is exclusive of all separately billable procedures, separate from and in addition to any other critical care service time. Patient previously was DNR/DNI. His presented yesterday evening and would like to see if we can get him liberated from the ventilator so that he can make decisions regarding his care moving forward. DNR/DNI appears appropriate. Admission and Anticipated Discharge Date Admission Date: August 12, 2023 Subjective Patient is intubated and sedated Review of Systems Review of Systems: Unobtainable due to endotracheal tube Physical Exam Constitutional: WD/WN, vitals as above Intubated and sedated Neck: trachea midline, no thyromegaly Respiratory: no labored breathing and not tachypneic Auscultation: + rhonchi; no crackles and no wheezes Cardiovascular: RRR, no murmur, no edema Gastrointestinal (Abdomen): normal bowel sounds, soft, nontender, no hepatosplenomegaly Musculoskeletal: Extremities: extremities normal to inspection Skin: no rashes, warm and dry Neurologic: Sedated Lymphatic: no cervical lymphadenopathy Results & Data Results & Data Vital Signs (Past 12 Hours) Vital Signs Temp Pulse Pulse Resp BP Pulse Ox O2 Del Method 08/13/23 07:09 69 33 H 98 Mechanical Vent 08/13/23 04:00 08/13/23 03:38 86 31 H 96 08/13/23 01:00 36.9 C 60 28 H 95 08/13/23 01:00 104/68 08/13/23 00:00 37.1 C 63 28 H 95 08/13/23 00:00 99/69 L 08/13/23 00:00 08/12/23 23:45 60 29 H 95 08/12/23 23:43 63 08/12/23 23:00 95/63 L 08/12/23 23:00 37.1 C 64 28 H 94 08/12/23 22:00 37.2 C 72 25 H 94 08/12/23 22:00 105/70 08/12/23 21:15 37.1 C 85 22 94 08/12/23 21:00 37.2 C 66 25 H 93 08/12/23 20:00 109/69 08/12/23 20:00 37.3 C 72 24 94 08/12/23 19:33 FiO2 08/13/23 07:09 45 08/13/23 04:00 45 08/13/23 03:38 45 08/13/23 01:00 08/13/23 01:00 08/13/23 00:00 08/13/23 00:00 08/13/23 00:00 45 08/12/23 23:45 45 08/12/23 23:43 08/12/23 23:00 08/12/23 23:00 08/12/23 22:00 08/12/23 22:00 08/12/23 21:15 08/12/23 21:00 08/12/23 20:00 08/12/23 20:00 08/12/23 19:33 45 Critical Care Results & Data Vital Signs (Past 12 Hours) Vital Signs Temp Pulse Pulse Resp BP Pulse Ox O2 Del Method 08/13/23 07:09 69 33 H 98 Mechanical Vent 08/13/23 04:00 08/13/23 03:38 86 31 H 96 08/13/23 01:00 36.9 C 60 28 H 95 08/13/23 01:00 104/68 08/13/23 00:00 37.1 C 63 28 H 95 08/13/23 00:00 99/69 L 08/13/23 00:00 08/12/23 23:45 60 29 H 95 08/12/23 23:43 63 08/12/23 23:00 95/63 L 08/12/23 23:00 37.1 C 64 28 H 94 08/12/23 22:00 37.2 C 72 25 H 94 08/12/23 22:00 105/70 08/12/23 21:15 37.1 C 85 22 94 08/12/23 21:00 37.2 C 66 25 H 93 08/12/23 20:00 109/69 08/12/23 20:00 37.3 C 72 24 94 08/12/23 19:33 FiO2 08/13/23 07:09 45 08/13/23 04:00 45 08/13/23 03:38 45 08/13/23 01:00 08/13/23 01:00 08/13/23 00:00 08/13/23 00:00 08/13/23 00:00 45 08/12/23 23:45 45 08/12/23 23:43 08/12/23 23:00 08/12/23 23:00 08/12/23 22:00 08/12/23 22:00 08/12/23 21:15 08/12/23 21:00 08/12/23 20:00 08/12/23 20:00 08/12/23 19:33 45 Lab & Micro Results (Past 24 Hours) RBC 4.97 M/uL (4.70-6.10) 08/13/23 WBC 21.83 K/ul (4.8-10.8) H 08/13/23 Hgb 14.6 g/dl (14.0-18.0) 08/13/23 Hct 43.9 % (42.0-52.0) 08/13/23 MCV 88.3 fL (80.0-100.0) 08/13/23 MCH 29.4 pg (25.0-34.0) 08/13/23 MCHC 33.3 g/dL (32.0-36.0) 08/13/23 RDW Standard Deviation 45.8 fL (36.4-46.3) 08/13/23 RDW Coefficient of Variation 14.2 % (11.5-14.5) 08/13/23 Plt Count 289 K/uL (130-400) 08/13/23 MPV 10.5 fL (9.4-12.4) 08/13/23 Neutrophils (%) (Auto) 89.3 % 08/13/23 Lymphocytes (%) (Auto) 3.3 % 08/13/23 Monocytes # (Auto) 1.34 K/uL (0.11-0.59) H 08/13/23 Eosinophils # (Auto) 0.00 K/uL (0.00-0.50) 08/13/23 Immature Granulocyte % (Auto) 1.1 % 08/13/23 Neutrophils # (Auto) 19.48 K/uL (1.40-6.50) H 08/13/23 Lymphocytes # (Auto) 0.73 K/uL (1.20-3.40) L 08/13/23 Monocytes # (Auto) 1.34 K/uL (0.11-0.59) H 08/13/23 Eosinophils # (Auto) 0.00 K/uL (0.00-0.50) 08/13/23 Basophils # (Auto) 0.05 K/uL (0.00-0.20) 08/13/23 Immature Granulocyte # (Auto) 0.23 K/uL (0.01-0.20) H 08/12 Na 138 mmol/L (136-145) 08/13/23 K 3.6 mmol/L (3.5-5.1) 08/13/23 Cl 108 mmol/L (98-107) H 08/13/23 CO2 23 mmol/L (21-32) 08/13/23 Anion Gap 7 (3-11) 08/13/23 BUN 27 mg/dl (6-23) H 08/13/23 Creatinine 0.75 mg/dl (0.6-1.4) 08/13/23 Estimated GFR ( Amer) 99.7 ml/min 08/13/23 Estimated GFR (Non-Af Amer) 86.0 ml/min 08/13/23 BUN/Creatinine Ratio 36.0 (10-20) H 08/13/23 Glu 133 mg/dl (70-99(Fasting)) H 08/13/23 Ca 8.6 mg/dl (8.6-10.3) 08/13/23 Phosphorus Level 3.1 mg/dl (2.5-4.9) 08/13/23 Albumin 3.4 gm/dl (3.4-5.0) 08/13/23 Mg 2.1 mg/dl (1.7-2.4) 08/13/23 03:42 Calcium Level 8.6 mg/dl (8.6-10.3) 08/13/23 03:42 Chandra Test NA 08/12/23 09:51 Microbiology 08/12/23 11:20 Gram Stain - Final Bronch Wash,Left Lower Lobe Bronchial Culture - Preliminary Gram negative bacilli 08/11/23 23:23 Aerobic Blood Culture - Preliminary Blood No growth in Aerobic bottle after 24 hours. Anaerobic Blood Culture - Preliminary No growth in Anaerobic bottle after 24 hours. 08/11/23 23:23 Aerobic Blood Culture - Preliminary Blood No growth in Aerobic bottle after 24 hours. Anaerobic Blood Culture - Preliminary No growth in Anaerobic bottle after 24 hours. I & O Totals 24 Hours 08/12/23 08/13/23 08/14/23 06:59 06:59 06:59 Intake Total 2022.765 / 2022.765 1615.350 / 1615.350 Output Total 450 / 450 1165 / 1165 Balance 1572.765 / 1572.765 450.350 / 450.350 Cumulative 08/11/23 19:54 thru 08/13/23 06:43 Intake Total 3638.115 Output Total 1615 Balance 2023.115 RT Ventilator Mngmt (Last Documented) Ventilator Ordered Settings Ventilator Support Mode Assist Control 08/13/23 04:00 Respiratory Rate 33 08/13/23 07:09 Ventilator Tidal Volume 450 08/13/23 04:00 Setting Minute Ventilation 12 08/13/23 03:38 Positive End Expiratory 5 08/13/23 04:00 Pressure Fraction of Inspired Oxygen 45 08/13/23 07:09 Peak Inspiratory Flow 51 08/12/23 15:30 Ventilator - PT Measurements Respiratory Rate 33 Exhaled Tidal Volume 450 Minute Ventilation 12 Peak Inspiratory Airway 23 Pressure Plateau Pressure 16 Respiratory Cycle Inspiratory: 1:2.1 Expiratory Ratio Inspiratory Phase Time 0.70 End-Tidal CO2 20 Static Lung Compliance 40.91 Dynamic Lung Compliance 25.00 Normal Static Lung Compliance 46.00 Coding Level of Care Code 10319 CRITICAL CARE 1ST 30-74M Diagnoses Respiratory failure J96.90 Required emergent intubation Z98.890 Pneumonia J18.9 CAD (coronary artery disease) I25.10 Hypertension I10 Simple chronic bronchitis J44.9 Type 2 diabetes mellitus with microalbuminuria E11.29; R80.9 BPH (benign prostatic hyperplasia) N40.0 Hyperlipidemia E78.5 Hypothyroidism E03.9 Hematuria R31.9 Inguinal hernia K40.90
--- NOTE | 2023-08-13 08:06 | Electrocardiogram Report ---
Test Reason : Blood Pressure : / mmHG Vent. Rate : 075 BPM Atrial Rate : 075 BPM P-R Int : 226 ms QRS Dur : 108 ms QT Int : 376 ms P-R-T Axes : 089 073 060 degrees QTc Int : 419 ms Sinus rhythm with 1st degree A-V block Otherwise normal ECG When compared with ECG of 12-AUG-2023 05:54, Premature atrial complexes are no longer Present Confirmed by Etienne Perez ([id number]) on 08/13/2023 8:05:32 AM Referred By: REFERRED SELF Confirmed By:Etienne Perez
[2023-08-13 08:16] LABS: Base Excess ABG -0.9 mEq/L (-9-1.8); HCO3 ABG 22 mmol/L (19-24); Oxygen Saturation ABG 97.7 % (90-95); PCO2 ABG 30 mmHg (35-46); PO2 ABG 82 mmHg (80-95); pH ABG 7.47 (7.35-7.45)
[2023-08-13 08:17] LABS: Allen Test Pos (Pos)
--- NOTE | 2023-08-13 08:48 | Hospitalist Progress Note ---
Date of Service August 13, 2023 Assessment & Plan (1) Respiratory failure: Plan: acute on chronic respiratory failure with hypoxia ( GOLD D COPD) with septic shock from gram negative pneumonia sepsis resolving emergently intubated and ventilated MRSA swab negative Bronchoscopy 08/11 with cultures preliminary gram-negative. Cefepime 2 g IV every 12 hours Azithromycin 500 mg IV daily Methylprednisolone transitioned to hydrocortisone due to inappropriately low am cortisol Patient able to be tapered off pressors did receive midodrine Duonebs every 4 hours while awake and every 2 hours when necessary. Patient is negative for COVID 19/influenza A and B, and RSV Contacted who does not live with pt, Terrie, (2) CAD (coronary artery disease): Plan: typically on aspirin, losartan, blood pressure is low will restart when able echo 08/11 with preserved EF (3) Type 2 diabetes mellitus with microalbuminuria: Plan: hold empagliflozin, on ssi and icu diabetic management (4) Inguinal hernia: Plan: Possible low-grade bowel obstruction surgical consult feels hernia is reduced at bedside 08/623 at 0929 Due to right inguinal hernia containing a small bowel loop as noted on CT NG tube to low intermittent suction Follow serial examinations Plan enoxaparin for DVT prevention full code Admission and Anticipated Discharge Date Admission Date: August 12, 2023 Subjective Patient awake. He has a loose productive cough. Surrounded by family at bedside Endorse that he wishes to be full code at this time He states he been ill for some time at home prior to him coming to the hospital he does not have any remembrance of the events. Physical Exam Physical Exam: Patient has rhonchorous breath sounds bilaterally with poor air movement. Card exam is distant with systolic murmur Abdomen NABS soft and nontender Extremities are with trace edema. Results & Data Results & Data Vital Signs (Past 12 Hours) Vital Signs Temp Pulse Pulse Resp BP Pulse Ox O2 Del Method 08/13/23 07:09 69 33 H 98 Mechanical Vent 08/13/23 04:00 08/13/23 03:38 86 31 H 96 08/13/23 01:00 98.4 F 60 28 H 95 08/13/23 01:00 104/68 08/13/23 00:00 98.8 F 63 28 H 95 08/13/23 00:00 99/69 L 08/13/23 00:00 08/12/23 23:45 60 29 H 95 08/12/23 23:43 63 08/12/23 23:00 95/63 L 08/12/23 23:00 98.8 F 64 28 H 94 08/12/23 22:00 99.0 F 72 25 H 94 08/12/23 22:00 105/70 08/12/23 21:15 98.8 F 85 22 94 08/12/23 21:00 99.0 F 66 25 H 93 FiO2 08/13/23 07:09 45 08/13/23 04:00 45 08/13/23 03:38 45 08/13/23 01:00 08/13/23 01:00 08/13/23 00:00 08/13/23 00:00 08/13/23 00:00 45 08/12/23 23:45 45 08/12/23 23:43 08/12/23 23:00 08/12/23 23:00 08/12/23 22:00 08/12/23 22:00 08/12/23 21:15 08/12/23 21:00 Laboratory Results Reviewed CBC reviewed chemistry PG Care Time/CCT Total # of Minutes Spent Total Time Spent with Patient: Total time spent is greater than 50% in coordination of care (as documented) at patient's floor/unit and/or counseling patient: Coding Level of Care Code 83004 SUB INP/OBS CARE 3/50MIN Diagnoses Respiratory failure J96.90 CAD (coronary artery disease) I25.10 Type 2 diabetes mellitus with microalbuminuria E11.29; R80.9 Inguinal hernia K40.90
[2023-08-13] MEDS: MIDODRINE HCL 2.5 MG TAB PO SCH (08:49)
[2023-08-13] MEDS: FLUDROCORTISONE ACETATE 0.1 MG TAB PO SCH (11:42)
[2023-08-13] MEDS: DEXTROSE 50% 50 ML SYRINGE IV PRN (13:06)
[2023-08-13] MEDS: HYDROCORTISONE SOD 50 MG in SYRINGE 0 ML IV SCH (13:09)
[2023-08-13] MEDS: BENZONATATE 100 MG CAPSULE PO PRN (19:57)
[2023-08-13] MEDS ORDERED: CARBOHYDRATES FOR HYPOGLYCEMIA PO PRN (20:20)
[2023-08-13] MEDS ORDERED: DEXTROSE 50% 50 ML SYRINGE IV PRN (20:20)
[2023-08-13] MEDS ORDERED: GLUCOSE 10 TAB/TUBE PO PRN (20:20)
[2023-08-13] MEDS ORDERED: GLUCAGON FOR INJ 1 MG VIAL SQ PRN (20:20)
[2023-08-13] MEDS ORDERED: GLUCOSE 40% GEL 15 GM TUBE PO PRN (20:20)
[2023-08-13] MEDS ORDERED: PHARMACY GLYCEMIC MGMT CONSULT PRN (20:20)
[2023-08-13] MEDS: INSULIN ASPART PER UNIT CHARGE SC SCH (20:26)
[2023-08-13] MEDS ORDERED: SODIUM CHLORIDE 0.9% 10ML FLUSH IV ONE (20:58)
[2023-08-13] MEDS ORDERED: MIDAZOLAM HCL 5 MG/ML 2ML VIAL IV ONE (20:58)
[2023-08-13] MEDS ORDERED: SODIUM CHLORIDE 0.9% 250 ML BAG IV ONE (21:00)
[2023-08-13] MEDS: LANTUS PER UNIT CHARGE SC SCH (21:01)
[2023-08-14 05:01] LABS: Basophils # (auto) 0.02 K/uL (0.00-0.20); Basophils % (auto) 0.1 %; Hematocrit (blood only) 38.2 % (42.0-52.0); Hemoglobin 12.5 g/dl (14.0-18.0); Immature Granulocytes # (auto) 0.16 K/uL (0.01-0.20); Immature Granulocytes % (auto) 0.9 %; Lymphocytes # (auto) 0.72 K/uL (1.20-3.40); Lymphocytes % (auto) 3.9 %; Mean Corpuscular Hemoglobin 29.3 pg (25.0-34.0); Mean Corpuscular Hgb Conc 32.7 g/dL (32.0-36.0); Mean Corpuscular Volume 89.5 fL (80.0-100.0); Mean Platelet Volume 10.6 fL (9.4-12.4); Neutrophils % (auto) 88.1 %; Nucleated RBC # (auto) 0.02 K/uL (0.00-0.12); Nucleated RBC % (auto) 0.1 %; Platelet Count 244 K/uL (130-400); RDW Coefficient of Variation 14.6 % (11.5-14.5); RDW Standard Deviation 47.4 fL (36.4-46.3); Red Blood Count 4.27 M/uL (4.70-6.10)
[2023-08-14 05:22] LABS: Albumin Level 3.4 gm/dl (3.4-5.0); BUN Creatinine Ratio 33.9 (10-20); Calcium 8.5 mg/dl (8.6-10.3); Creatinine Clr Calc Pharmacy 107.2 ml/min; Est GFR (African American) 112.4 ml/min; Magnesium 2.1 mg/dl (1.7-2.4); Potassium 3.9 mmol/L (3.5-5.1)
[2023-08-14] MEDS: POTASSIUM CHLORIDE CRTAB 20 MEQ TABCR PO SCH (05:45)
--- NOTE | 2023-08-14 07:20 | Critical Care Progress Note ---
Date of Service August 14, 2023 Assessment & Plan (1) Respiratory failure: (2) Required emergent intubation: (3) Pneumonia: (4) CAD (coronary artery disease): (5) Hypertension: (6) Chronic obstructive pulmonary disease: (7) Type 2 diabetes mellitus with microalbuminuria: (8) BPH (benign prostatic hyperplasia): (9) Hyperlipidemia: (10) Hypothyroidism: (11) Hematuria: (12) Inguinal hernia: Plan Reason Critically Ill: 82 YOM presents to ICU following respiratory arrest in setting of GOLD Stage D COPD and pneumonia. 24-hour events: Patient passed an SBT and was extubated. He has done well clinically overnight. Pressors have been weaned to off. Recommendations: Neuro -no focal deficits. Continue to try and maintain sleep-wake cycles and avoid delirium potentiating medications. Out of bed to chair as tolerated. PT and OT evaluations Cardiac -hypotension resolved. Currently on treatment for relative adrenal insufficiency, see comments below. Echocardiogram reassuring. May consider diuresis when possible. Discontinue central line Respiratory -history of COPD with hypoxemic hypercarbic respiratory failure. Unclear etiology for the patient's arrest. Patient is on 2 L oxygen which a ppears to be his baseline. Continue nebulized budesonide and Perforomist and as needed DuoNebs. Will add incentive spirometry and flutter valve to his regiment. Chest x-ray today with stable basilar infiltrates. Recommend follow- up chest x-ray in 2 to 4 weeks for resolution GI -bilateral inguinal hernias. Appreciate general surgery consultation. No indication for acute intervention currently. May need to follow-up in the outpatient setting. Diet advanced. Continue PPI RENAL/LYTES - ICU electrolyte protocol. -hematuria cleared. Discontinue Bonilla catheter ENDO - glycemic control per protocol. Now off insulin drip. Continue Synthroid. On hydrocortisone for relative adrenal insufficiency. Will taper back and taper to off over the next 2 to 3 days HEME - No acute needs ID -day #3 cefepime azithromycin. Bronchoscopy specimens growing Pseudomonas with intermediate sensitivity to fluoroquinolones. Discontinue azithromycin and continue cefepime with anticipated 7 to 10-day course LINES/IV ACCESS - CVL, PIV, [place], BONILLA DVT PROPHYLAXIS - SCDS DISPO: Appropriate for transfer to the floor. Critical care will sign off. Feel free to contact us with questions or concerns Admission and Anticipated Discharge Date Admission Date: August 12, 2023 Subjective Patient seen and examined. EMR reviewed. Discussed with patient and critical care nurse at bedside. The patient is doing well postextubation. He is experiencing some shortness of breath which she feels is at his baseline. He is coughing and expectorating small amounts of phlegm. He has not had fevers chills or night sweats overnight. He remains hemodynamically stable. He has not yet been out of bed to chair Review of Systems Review of Systems: All systems reviewed & are unremarkable except as noted in Subjective Physical Exam Constitutional: WD/WN, vitals as above Neck: trachea midline, no thyromegaly Respiratory: no labored breathing and not tachypneic Auscultation: + rhonchi; no crackles and no wheezes Cardiovascular: RRR, no murmur, no edema Gastrointestinal (Abdomen): normal bowel sounds, soft, nontender, no hepatosplenomegaly Musculoskeletal: Extremities: extremities normal to inspection Skin: no rashes, warm and dry Lymphatic: no cervical lymphadenopathy Results & Data Results & Data Vital Signs (Past 12 Hours) Vital Signs Temp Pulse Pulse Resp BP Pulse Ox O2 Del Method 08/14/23 06:00 36.5 C 85 20 93 08/14/23 06:00 103/63 08/14/23 05:00 115/61 08/14/23 05:00 36.5 C 74 16 94 08/14/23 04:00 36.6 C 89 16 93 08/14/23 04:00 103/64 08/14/23 03:00 104/62 08/14/23 03:00 36.6 C 79 18 95 08/14/23 02:05 77 18 96 Nasal Cannula 08/14/23 02:00 109/62 08/14/23 02:00 36.6 C 73 16 95 08/14/23 01:00 113/66 08/14/23 01:00 36.7 C 80 14 95 08/14/23 00:20 111/82 08/14/23 00:20 37.0 C 91 H 17 95 08/14/23 00:00 91 H 08/13/23 23:00 108/62 08/13/23 23:00 36.7 C 82 15 91 08/13/23 22:00 98/56 L 08/13/23 22:00 36.9 C 91 H 16 89 L 08/13/23 21:00 96/58 L 08/13/23 21:00 36.9 C 83 18 92 08/13/23 20:23 88 18 96 Nasal Cannula 08/13/23 20:01 116/60 08/13/23 20:01 37.1 C 99 H 15 92 08/13/23 19:46 Nasal Cannula O2 Flow Rate 08/14/23 06:00 08/14/23 06:00 08/14/23 05:00 08/14/23 05:00 08/14/23 04:00 08/14/23 04:00 08/14/23 03:00 08/14/23 03:00 08/14/23 02:05 2 08/14/23 02:00 08/14/23 02:00 08/14/23 01:00 08/14/23 01:00 08/14/23 00:20 08/14/23 00:20 08/14/23 00:00 08/13/23 23:00 08/13/23 23:00 08/13/23 22:00 08/13/23 22:00 08/13/23 21:00 08/13/23 21:00 08/13/23 20:23 2 08/13/23 20:01 08/13/23 20:01 08/13/23 19:46 3 Critical Care Results & Data Vital Signs (Past 12 Hours) Vital Signs Temp Pulse Pulse Resp BP Pulse Ox O2 Del Method 08/14/23 06:00 36.5 C 85 20 93 08/14/23 06:00 103/63 08/14/23 05:00 115/61 08/14/23 05:00 36.5 C 74 16 94 08/14/23 04:00 36.6 C 89 16 93 08/14/23 04:00 103/64 08/14/23 03:00 104/62 08/14/23 03:00 36.6 C 79 18 95 08/14/23 02:05 77 18 96 Nasal Cannula 08/14/23 02:00 109/62 08/14/23 02:00 36.6 C 73 16 95 08/14/23 01:00 113/66 08/14/23 01:00 36.7 C 80 14 95 08/14/23 00:20 111/82 08/14/23 00:20 37.0 C 91 H 17 95 08/14/23 00:00 91 H 08/13/23 23:00 108/62 08/13/23 23:00 36.7 C 82 15 91 08/13/23 22:00 98/56 L 08/13/23 22:00 36.9 C 91 H 16 89 L 08/13/23 21:00 96/58 L 08/13/23 21:00 36.9 C 83 18 92 08/13/23 20:23 88 18 96 Nasal Cannula 08/13/23 20:01 116/60 08/13/23 20:01 37.1 C 99 H 15 92 08/13/23 19:46 Nasal Cannula O2 Flow Rate 08/14/23 06:00 08/14/23 06:00 08/14/23 05:00 08/14/23 05:00 08/14/23 04:00 08/14/23 04:00 08/14/23 03:00 08/14/23 03:00 08/14/23 02:05 2 08/14/23 02:00 08/14/23 02:00 08/14/23 01:00 08/14/23 01:00 08/14/23 00:20 08/14/23 00:20 08/14/23 00:00 08/13/23 23:00 08/13/23 23:00 08/13/23 22:00 08/13/23 22:00 08/13/23 21:00 08/13/23 21:00 08/13/23 20:23 2 08/13/23 20:01 08/13/23 20:01 08/13/23 19:46 3 Lab & Micro Results (Past 24 Hours) RBC 4.27 M/uL (4.70-6.10) L 08/14/23 WBC 18.60 K/ul (4.8-10.8) H 08/14/23 Hgb 12.5 g/dl (14.0-18.0) L 08/14/23 Hct 38.2 % (42.0-52.0) L 08/14/23 MCV 89.5 fL (80.0-100.0) 08/14/23 MCH 29.3 pg (25.0-34.0) 08/14/23 MCHC 32.7 g/dL (32.0-36.0) 08/14/23 RDW Standard Deviation 47.4 fL (36.4-46.3) H 08/14/23 RDW Coefficient of Variation 14.6 % (11.5-14.5) H 08/14/23 Plt Count 244 K/uL (130-400) 08/14/23 MPV 10.6 fL (9.4-12.4) 08/14/23 Nucleated Red Blood Cells % (auto) 0.1 % 08/13 Nucleated RBC Absolute Count (auto) 0.02 K/uL (0.00-0.12) 0 08/14/23 Neutrophils (%) (Auto) 88.1 % 08/14/23 Lymphocytes (%) (Auto) 3.9 % 08/14/23 Monocytes # (Auto) 1.30 K/uL (0.11-0.59) H 08/14/23 Eosinophils # (Auto) 0.00 K/uL (0.00-0.50) 08/14/23 Immature Granulocyte % (Auto) 0.9 % 08/14/23 Neutrophils # (Auto) 16.40 K/uL (1.40-6.50) H 08/14/23 Lymphocytes # (Auto) 0.72 K/uL (1.20-3.40) L 08/14/23 Monocytes # (Auto) 1.30 K/uL (0.11-0.59) H 08/14/23 Eosinophils # (Auto) 0.00 K/uL (0.00-0.50) 08/14/23 Basophils # (Auto) 0.02 K/uL (0.00-0.20) 08/14/23 Immature Granulocyte # (Auto) 0.16 K/uL (0.01-0.20) 4 Na 139 mmol/L (136-145) 08/14/23 K 3.9 mmol/L (3.5-5.1) 08/14/23 Cl 109 mmol/L (98-107) H 08/14/23 CO2 24 mmol/L (21-32) 08/14/23 Anion Gap 6 (3-11) 08/14/23 BUN 19 mg/dl (6-23) 08/14/23 Creatinine 0.56 mg/dl (0.6-1.4) L 08/14/23 Estimated GFR ( Amer) 112.4 ml/min 08/14/23 Estimated GFR (Non-Af Amer) 97.0 ml/min 08/14/23 BUN/Creatinine Ratio 33.9 (10-20) H 08/14/23 Glu 140 mg/dl (70-99(Fasting)) H 08/14/23 Ca 8.5 mg/dl (8.6-10.3) L 08/14/23 Phosphorus Level 3.0 mg/dl (2.5-4.9) 08/14/23 Albumin 3.4 gm/dl (3.4-5.0) 08/14/23 Mg 2.1 mg/dl (1.7-2.4) 08/14/23 03:54 Calcium Level 8.5 mg/dl (8.6-10.3) L 08/14/23 03:54 Arterial Blood pH 7.47 (7.35-7.45) H 08/13/23 08:10 Arterial Blood Partial Pressure CO2 30 mmHg (35-46) L 08/13/23 08:10 Arterial Blood Partial Pressure O2 82 mmHg (80-95) 08/13/23 08: 10 Arterial Blood HCO3 22 mmol/L (19-24) 08/13/23 08:10 Arterial Blood Base Excess -0.9 mEq/L (-9-1.8) 08/13/23 08:10 Arterial Blood Oxygen Saturation 97.7 % (90-95) H 08/13/23 08:1 0 Blood Gas Oxygen Given 3L 08/13/23 08:10 Chandra Test Pos (Pos) 08/13/23 08:10 Microbiology 08/12/23 11:20 Gram Stain - Final Bronch Wash,Left Lower Lobe Bronchial Culture - Preliminary Pseudomonas aeruginosa 08/11/23 23:23 Aerobic Blood Culture - Preliminary Blood No growth in Aerobic bottle after 48 hours. Anaerobic Blood Culture - Preliminary No growth in Anaerobic bottle after 48 hours. 08/11/23 23:23 Aerobic Blood Culture - Preliminary Blood No growth in Aerobic bottle after 48 hours. Anaerobic Blood Culture - Preliminary No growth in Anaerobic bottle after 48 hours. I & O Totals 24 Hours 08/13/23 08/14/23 08/15/23 06:59 06:59 06:59 Intake Total 1615.350 / 7095.433 2202.345 / 2631.345 Output Total 1165 / 1165 1575 / 1575 Balance 450.350 / 846.146 5534.345 / 1056.345 Cumulative 08/11/23 19:54 thru 08/14/23 06:06 Intake Total 6269.460 Output Total 3190 Balance 3079.460 RT Ventilator Mngmt (Last Documented) Ventilator Ordered Settings Ventilator Support Mode CPAP 08/13/23 08:50 Respiratory Rate 20 08/14/23 06:00 Ventilator Tidal Volume 450 08/13/23 08:00 Setting Minute Ventilation 10 08/13/23 08:50 Ventilator Positive Pressure 4 08/13/23 08:50 Support Setting Positive End Expiratory 5 08/13/23 08:50 Pressure Fraction of Inspired Oxygen 30 08/13/23 08:50 Peak Inspiratory Flow 51 08/12/23 15:30 Ventilator - PT Measurements Respiratory Rate 20 Exhaled Tidal Volume 609 Minute Ventilation 10 Peak Inspiratory Airway 10 Pressure Plateau Pressure 19 Respiratory Cycle Inspiratory: 1:2.1 Expiratory Ratio Inspiratory Phase Time 0.7 End-Tidal CO2 30 Static Lung Compliance 31.93 Dynamic Lung Compliance 121.80 Normal Static Lung Compliance 50.00 Patient Measurements Comment Patient extubated per Dr. Herrmann verbal order with RN quang at bedside at this time. Patient placed on 3L Oxymask saturations 91-92%, RR20. Will continue to monitor. Coding Level of Care Code 22979 SUB INP/OBS CARE 3/50MIN Diagnoses Respiratory failure J96.90 Required emergent intubation Z98.890 Pneumonia J18.9 CAD (coronary artery disease) I25.10 Hypertension I10 Simple chronic bronchitis J44.9 Type 2 diabetes mellitus with microalbuminuria E11.29; R80.9 BPH (benign prostatic hyperplasia) N40.0 Hyperlipidemia E78.5 Hypothyroidism E03.9 Hematuria R31.9 Inguinal hernia K40.90
--- NOTE | 2023-08-14 07:50 | XRay Report ---
SINGLE VIEW CHEST CLINICAL HISTORY: Respiratory failure FINDINGS: An AP, portable, upright chest radiograph is compared to chest x-ray and chest CT dated 08/11. Endotracheal and enteric tubes have been removed. The heart is enlarged noting atherosclerotic calcification of the thoracic aorta. There is pulmonary vascular congestion. Advanced emphysema and chronic interstitial thickening similar to previous. Multifocal airspace consolidation is again noted , greatest at the lung bases. No large pleural effusion or pneumothorax is seen. The skeletal structu res are osteopenic. The bony thorax is grossly intact. IMPRESSION: 1. Endotracheal and enteric tubes have been removed. 2. Cardiomegaly and emphysema with pulmonary vascular congestion. 3. Multifocal airspace consolidation is again noted, greatest at the lung bases. Continued radiograph ic follow-up to resolution is recommended. ACT 112: Negative or not required by law. Electronically signed by: Fabian Mcneil M.D. 08/14/2023 7:48 AM
[2023-08-14] MEDS: PANTOprazole 40 MG TAB PO SCH (07:56)
--- NOTE | 2023-08-14 08:25 | Hospitalist Progress Note ---
Date of Service August 14, 2023 Assessment & Plan (1) Respiratory failure: Plan: acute on chronic respiratory failure with hypoxia ( GOLD D COPD) with septic shock from gram negative pneumonia sepsis resolving emergently intubated, extubated 08/12 MRSA swab negative Bronchoscopy 08/11 with cultures preliminary gram-negative. Cefepime 2 g IV every 12 hours Azithromycin discontinued on 08/13 Methylprednisolone transitioned to hydrocortisone due to inappropriately low am cortisol begin tapering to off over the next few days Patient able to be tapered off pressors did receive midodrine Duonebs every 4 hours while awake and every 2 hours when necessary. Patient is negative for COVID 19/influenza A and B, and RSV Contacted who does not live with pt, Terrie, (2) CAD (coronary artery disease): Plan: typically on aspirin, losartan, blood pressure is low will restart when able echo 08/11 with preserved EF (3) Type 2 diabetes mellitus with microalbuminuria: Plan: hold empagliflozin, on ssi and icu diabetic management (4) Inguinal hernia: Plan: Possible low-grade bowel obstruction surgical consult feels hernia is reduced at bedside 08/623 at 0929 Due to right inguinal hernia containing a small bowel loop as noted on CT NG tube to low intermittent suction Follow serial examinations Plan enoxaparin for DVT prevention full code Admission and Anticipated Discharge Date Admission Date: August 12, 2023 Subjective Patient marked improvement. Patient looking possibly towards rehab. Oxygen needs been coming down greatly. Conversing with family at bedside. Physical Exam Physical Exam: Patient still has increased work of breathing accessory muscle use rhonchorous breath sounds bilaterally Card exam is regular without a murmur Extremities are without significant edema Results & Data Results & Data Vital Signs (Past 12 Hours) Vital Signs Temp Pulse Pulse Resp BP Pulse Ox O2 Del Method 08/14/23 07:32 81 08/14/23 07:00 126/71 08/14/23 07:00 97.7 F 64 17 96 08/14/23 06:00 97.7 F 85 20 93 08/14/23 06:00 103/63 08/14/23 05:00 115/61 08/14/23 05:00 97.7 F 74 16 94 08/14/23 04:00 97.9 F 89 16 93 08/14/23 04:00 103/64 08/14/23 03:00 104/62 08/14/23 03:00 97.9 F 79 18 95 08/14/23 02:05 77 18 96 Nasal Cannula 08/14/23 02:00 109/62 08/14/23 02:00 97.9 F 73 16 95 08/14/23 01:00 113/66 08/14/23 01:00 98.1 F 80 14 95 08/14/23 00:20 111/82 08/14/23 00:20 98.6 F 91 H 17 95 08/14/23 00:00 91 H 08/13/23 23:00 108/62 08/13/23 23:00 98.1 F 82 15 91 08/13/23 22:00 98/56 L 08/13/23 22:00 98.4 F 91 H 16 89 L 08/13/23 21:00 96/58 L 08/13/23 21:00 98.4 F 83 18 92 O2 Flow Rate 08/14/23 07:32 08/14/23 07:00 08/14/23 07:00 08/14/23 06:00 08/14/23 06:00 08/14/23 05:00 08/14/23 05:00 08/14/23 04:00 08/14/23 04:00 08/14/23 03:00 08/14/23 03:00 08/14/23 02:05 2 08/14/23 02:00 08/14/23 02:00 08/14/23 01:00 08/14/23 01:00 08/14/23 00:20 08/14/23 00:20 08/14/23 00:00 08/13/23 23:00 08/13/23 23:00 08/13/23 22:00 08/13/23 22:00 08/13/23 21:00 08/13/23 21:00 Laboratory Results Reviewed CBC reviewed chemistry PG Care Time/CCT Total # of Minutes Spent Total Time Spent with Patient: Total time spent is greater than 50% in coordination of care (as documented) at patient's floor/unit and/or counseling patient: Coding Level of Care Code 64750 SUB INP/OBS CARE 3/50MIN Diagnoses Respiratory failure J96.90 CAD (coronary artery disease) I25.10 Type 2 diabetes mellitus with microalbuminuria E11.29; R80.9 Inguinal hernia K40.90
[2023-08-14] MEDS: ASPIRIN 81 MG ECTAB PO SCH (08:44)
--- NOTE | 2023-08-14 10:14 | Pharmacy Report ---
Pharmacy Glycemic Short Note 2 - Date of Service August 14, 2023 - Glycemic Short BSG Results (Last 24 hours): 08/13/23 08/13/23 08/13/23 11:45 12:56 13:13 Glucose POC Glucose 90 78 129 H 08/13/23 08/13/23 08/13/23 14:07 14:54 16:01 Glucose POC Glucose 146 H 130 H 130 H 08/13/23 08/13/23 08/14/23 18:00 20:02 03:54 Glucose 140 H POC Glucose 133 H 88 08/14/23 07:14 Glucose POC Glucose 163 H OUTPATIENT ANTIDIABETIC REGIMEN: * Metformin 1000mg BID * Jardiance 25mg qam * A1c: 8.1% 04/27/23 ASSESSMENT: * Patient admitted for respiratory now with pseudomonas growing from bronch cx. * Patient hyperglycemic upon admission initiated on a drip. This was continued while pressors, high dose glucocorticoids were on board. Insulin infusion as successfully transition off last evening. * Will continue today with a conservative basal bolus regimen. Patient currently received hydrocortisone 50mg q12 and is tolerating a diet. PLAN FOR INPATIENT GLYCEMIC CONTROL: * Hold outpatient oral diabetes medications * Basal insulin * Lantus 5-10 units SQ HS (Based on BSG, see MAR for details) * Bolus insulin * NovoLog per scale ACHS or Q6hrs while NPO * Goal Range: Low 110 mg/dL - High 140 mg/dL * Correction Factor: 20 mg/dL/unit * Nutritional / Prandial insulin per carb ratio of 1 unit per 5 grams CHO consumed
[2023-08-14] MEDS: Cefepime 2,000 MG Extended Infusion IV SCH (13:45)
[2023-08-14] MEDS: HYDROCORTISONE SOD 50 MG in SYRINGE 0 ML IV SCH (18:13)
[2023-08-14] MEDS: LANTUS PER UNIT CHARGE SC SCH (21:05)
[2023-08-15 04:54] LABS: BUN Creatinine Ratio 33.9 (10-20); Calcium 8.4 mg/dl (8.6-10.3); Creatinine Clr Calc Pharmacy 101.4 ml/min; Est GFR (Non-African American) 94.9 ml/min; Magnesium 2.1 mg/dl (1.7-2.4); Phosphorus 3.1 mg/dl (2.5-4.9)
[2023-08-15 07:15] LABS: Estimated Average Glucose 197 mg/dl; Hemoglobin A1C 8.5 % (4.5-5.6)
--- NOTE | 2023-08-15 10:43 | Hospitalist Progress Note ---
Date of Service August 15, 2023 Assessment & Plan (1) Respiratory failure: Plan: acute on chronic respiratory failure with hypoxia ( GOLD D COPD) with septic shock from gram negative pneumonia sepsis resolving emergently intubated, extubated 08/12 MRSA swab negative Bronchoscopy 08/11 with cultures preliminary gram-negative. Cefepime 2 g IV every 12 hours Azithromycin discontinued on 08/13 Methylprednisolone transitioned to hydrocortisone due to inappropriately low am cortisol begin tapering to off over the next few days Patient able to be tapered off pressors did receive midodrine duonebs discontinued. Aluberol nebs as needed Patient is negative for COVID 19/influenza A and B, and RSV On 08/13, Contacted who does not live with pt, Terrie, added incruse on 08/14 Son was updated on 08/14 (2) CAD (coronary artery disease): Plan: typically on aspirin, losartan, blood pressure is low will restart when able echo 08/11 with preserved EF (3) Type 2 diabetes mellitus with microalbuminuria: Plan: hold empagliflozin, on ssi and icu diabetic management (4) Inguinal hernia: Plan: Possible low-grade bowel obstruction surgical consult feels hernia is reduced at bedside 08/623 at 0929 Due to right inguinal hernia containing a small bowel loop as noted on CT NG tube to low intermittent suction Follow serial examinations Plan enoxaparin for DVT prevention full code Admission and Anticipated Discharge Date Admission Date: August 12, 2023 Subjective Patient reports not feeling back to his baseline. Patient reports significant improvement over course of his hospital stay. Patient is coughing more. Review of Systems Review of Systems: All systems reviewed & are unremarkable except as noted in HPI & below Physical Exam Physical Exam: Patient is sitting in chair. No distress Card exam is regular without a murmur Lung: wheezing, poor air movements Extremities are without significant edema Results & Data Results & Data Vital Signs (Past 12 Hours) Vital Signs Pulse Pulse Resp BP Pulse Ox O2 Del Method O2 Flow Rate 08/15/23 07:45 75 20 94 Nasal Cannula 2.5 08/15/23 07:00 66 19 128/65 94 08/15/23 07:00 128/65 08/15/23 06:01 54 L 17 96 08/15/23 06:01 130/71 08/15/23 06:00 67 17 95 03/09/24 05:00 54 L 18 98 08/15/23 05:00 144/75 H 08/15/23 04:01 59 L 20 94 08/15/23 04:01 110/65 08/15/23 04:00 57 L 23 94 08/15/23 03:00 99/54 L 08/15/23 03:00 57 L 17 98 08/15/23 02:00 112/72 08/15/23 02:00 86 17 98 08/15/23 01:00 110/63 08/15/23 01:00 57 L 17 95 08/15/23 00:00 120/68 08/15/23 00:00 83 20 93 08/15/23 00:00 56 L 08/14/23 23:20 60 15 96 Nasal Cannula 4 08/14/23 23:00 62 21 97 08/14/23 23:00 128/73 PG Care Time/CCT Total # of Minutes Spent Total Time Spent with Patient: Total time spent is greater than 50% in coordination of care (as documented) at patient's floor/unit and/or counseling patient: Coding Level of Care Code 48989 SUB INP/OBS CARE 3/50MIN Diagnoses Respiratory failure J96.90 CAD (coronary artery disease) I25.10 Type 2 diabetes mellitus with microalbuminuria E11.29; R80.9 Inguinal hernia K40.90
[2023-08-15] MEDS: LEVALBUTEROL 1.25 MG/3 ML NEB NEB PRN (10:59)
[2023-08-15] MEDS: UMECLIDINIUM BROMIDE 62.5MCG/BLISTER 7 PUFFS/INHALER INH SCH (12:09)
--- NOTE | 2023-08-15 13:13 | Pharmacy Report ---
Pharmacy Glycemic Short Note 2 - Date of Service August 15, 2023 - Glycemic Short BSG Results (Last 24 hours): 08/14/23 08/14/23 08/15/23 16:06 19:50 03:32 Glucose 135 H POC Glucose 133 H 131 H 08/15/23 08/15/23 07:54 11:25 Glucose POC Glucose 123 H 110 H OUTPATIENT ANTIDIABETIC REGIMEN: * Metformin 1000mg BID * Jardiance 25mg qam * A1c: 8.1% 04/27/23 ASSESSMENT: 08/14: * Antonio received 16 units of insulin yesterday, 5 basal + 11 bolus. BSGs were: [phone] mg/dL. * Fasting BSG is 123 mg/dL this AM. Will continue with 5 units of basal at bedtime. * Lunchtime BSG trending down but still in goal range. Will loosen carb ratio today. 08/13: * Patient admitted for respiratory now with pseudomonas growing from bronch cx. * Patient hyperglycemic upon admission initiated on a drip. This was continued while pressors, high dose glucocorticoids were on board. Insulin infusion as successfully transition off last evening. * Will continue today with a conservative basal bolus regimen. Patient currently received hydrocortisone 50mg q12 and is tolerating a diet. PLAN FOR INPATIENT GLYCEMIC CONTROL: * Hold outpatient oral diabetes medications * Basal insulin * Lantus 5 units SC HS * Bolus insulin * NovoLog per scale ACHS or Q6hrs while NPO * Goal Range: Low 110 mg/dL - High 140 mg/dL * Correction Factor: 20 mg/dL/unit * Nutritional / Prandial insulin per carb ratio of 1 unit per 7 grams CHO consumed
[2023-08-15] MEDS: LANTUS PER UNIT CHARGE SC SCH (20:35)
[2023-08-15] MEDS: guaiFENesin 600 MG TABCR PO SCH (22:14)
[2023-08-16 03:54] LABS: Hemoglobin 12.6 g/dl (14.0-18.0); Mean Corpuscular Hemoglobin 29.2 pg (25.0-34.0); Mean Corpuscular Hgb Conc 33.2 g/dL (32.0-36.0); Mean Platelet Volume 10.2 fL (9.4-12.4); Platelet Count 239 K/uL (130-400); RDW Coefficient of Variation 13.8 % (11.5-14.5); RDW Standard Deviation 44.9 fL (36.4-46.3); Red Blood Count 4.32 M/uL (4.70-6.10); White Blood Count 11.84 K/ul (4.8-10.8)
[2023-08-16 04:09] LABS: BUN Creatinine Ratio 35.8 (10-20); C Reactive Protein 3.26 mg/dl (0-0.5); Calcium 8.4 mg/dl (8.6-10.3); Creatinine Clr Calc Pharmacy 112.1 ml/min; Est GFR (Non-African American) 99.2 ml/min; Phosphorus 2.5 mg/dl (2.5-4.9); Potassium 3.8 mmol/L (3.5-5.1)
--- NOTE | 2023-08-16 18:39 | Hospitalist Progress Note ---
Date of Service August 16, 2023 Assessment & Plan (1) Respiratory failure: Plan: acute on chronic respiratory failure with hypoxia ( GOLD D COPD) with septic shock from gram negative pneumonia sepsis resolving emergently intubated, extubated 08/12 MRSA swab negative Bronchoscopy 08/11 with cultures preliminary gram-negative. Cefepime 2 g IV every 12 hours Azithromycin discontinued on 08/13 Methylprednisolone transitioned to hydrocortisone due to inappropriately low am cortisol begin tapering to off over the next few days Patient able to be tapered off pressors did receive midodrine duonebs discontinued. Aluberol nebs as needed Patient is negative for COVID 19/influenza A and B, and RSV On 08/13, Contacted who does not live with pt, Terrie, added incruse on 08/14 Son was updated on 08/14 Patient appears to be improving on 08/15 contiue to wean off oxygen. (2) CAD (coronary artery disease): Plan: typically on aspirin, losartan, blood pressure is low will restart when able echo 08/11 with preserved EF (3) Type 2 diabetes mellitus with microalbuminuria: Plan: hold empagliflozin, on ssi and icu diabetic management (4) Inguinal hernia: Plan: Possible low-grade bowel obstruction surgical consult feels hernia is reduced at bedside 08/623 at 0929 Due to right inguinal hernia containing a small bowel loop as noted on CT NG tube to low intermittent suction Follow serial examinations Plan enoxaparin for DVT prevention full code Admission and Anticipated Discharge Date Admission Date: August 12, 2023 Subjective Patient reports feeling better. Breathing better. Still coughing. Patient is anxious about being discharged soon. Review of Systems Review of Systems: All systems reviewed & are unremarkable except as noted in HPI & below Physical Exam Physical Exam: Patient is sitting in chair. No distress Card exam is regular without a murmur Lung: wheezing, poor air movements Extremities are without significant edema Results & Data Results & Data Vital Signs (Past 12 Hours) Vital Signs Pulse Pulse Resp BP Pulse Ox O2 Del Method O2 Flow Rate 08/16/23 16:30 72 33 H 08/16/23 16:00 83 29 H 82 L 08/16/23 15:30 72 23 94 08/16/23 15:00 64 20 97 08/16/23 14:30 81 29 H 99 08/16/23 14:00 58 L 21 98 08/16/23 13:30 56 L 28 H 97 08/16/23 13:00 88 30 H 96 08/16/23 12:30 97 H 24 08/16/23 12:02 71 18 Nasal Cannula 08/16/23 12:00 72 22 96 08/16/23 11:30 79 20 96 08/16/23 11:00 62 21 97 08/16/23 10:30 65 20 98 08/16/23 10:00 63 16 97 08/16/23 09:30 57 L 23 96 08/16/23 09:00 86 21 92 08/16/23 08:50 67 24 91 08/16/23 08:50 124/83 08/16/23 08:30 82 26 H 91 08/16/23 08:00 78 14 96 08/16/23 08:00 64 08/16/23 07:52 104 H 20 93 Nasal Cannula 2 08/16/23 07:32 14 08/16/23 07:30 Nasal Cannula 2 08/16/23 07:00 155/84 H 08/16/23 07:00 56 L 18 95 FiO2 08/16/23 16:30 08/16/23 16:00 08/16/23 15:30 08/16/23 15:00 08/16/23 14:30 08/16/23 14:00 08/16/23 13:30 08/16/23 13:00 08/16/23 12:30 08/16/23 12:02 96 08/16/23 12:00 08/16/23 11:30 08/16/23 11:00 08/16/23 10:30 08/16/23 10:00 08/16/23 09:30 08/16/23 09:00 08/16/23 08:50 08/16/23 08:50 08/16/23 08:30 08/16/23 08:00 08/16/23 08:00 08/16/23 07:52 08/16/23 07:32 08/16/23 07:30 08/16/23 07:00 08/16/23 07:00 PG Care Time/CCT Total # of Minutes Spent Total Time Spent with Patient: Total time spent is greater than 50% in coordination of care (as documented) at patient's floor/unit and/or counseling patient: Coding Level of Care Code 93205 SUB INP/OBS CARE MIN Diagnoses Respiratory failure J96.90 CAD (coronary artery disease) I25.10 Type 2 diabetes mellitus with microalbuminuria E11.29; R80.9 Inguinal hernia K40.90
[2023-08-17 04:44] LABS: BUN Creatinine Ratio 22.4 (10-20); C Reactive Protein 1.98 mg/dl (0-0.5); Calcium 8.5 mg/dl (8.6-10.3); Creatinine Clr Calc Pharmacy 89.3 ml/min; Est GFR (African American) 104.4 ml/min; Est GFR (Non-African American) 90.1 ml/min; Magnesium 1.9 mg/dl (1.7-2.4); Phosphorus 2.3 mg/dl (2.5-4.9); Potassium 3.8 mmol/L (3.5-5.1)
[2023-08-17] MEDS: BUDESONIDE 0.5 MG/2 ML VIAL (PULMICORT) NEB SCH (20:08)
--- NOTE | 2023-08-17 21:28 | Hospitalist Progress Note ---
Date of Service August 17, 2023 Assessment & Plan (1) Respiratory failure: Plan: acute on chronic respiratory failure with hypoxia ( GOLD D COPD) with septic shock from gram negative pneumonia sepsis resolving emergently intubated, extubated 08/12 MRSA swab negative Bronchoscopy 08/11 with cultures preliminary gram-negative. Cefepime 2 g IV every 12 hours Azithromycin discontinued on 08/13 Methylprednisolone transitioned to hydrocortisone due to inappropriately low am cortisol begin tapering to off over the next few days Patient able to be tapered off pressors did receive midodrine duonebs discontinued. Aluberol nebs as needed Patient is negative for COVID 19/influenza A and B, and RSV On 08/13, Contacted who does not live with pt, Terrie, added incruse on 08/14 Son was updated on 08/14 Patient appears to be improving on 08/15 continue to wean off oxygen. Patient though requires nasal cannula. Bronch washings showing pseudomonas. will require about 10 days of antibiotics total. (2) CAD (coronary artery disease): Plan: typically on aspirin, losartan, blood pressure is low will restart when able echo 08/11 with preserved EF (3) Type 2 diabetes mellitus with microalbuminuria: Plan: hold empagliflozin, on ssi and icu diabetic management (4) Inguinal hernia: Plan: Possible low-grade bowel obstruction surgical consult feels hernia is reduced at bedside 08/623 at 0929 Due to right inguinal hernia containing a small bowel loop as noted on CT NG tube to low intermittent suction Follow serial examinations Plan enoxaparin for DVT prevention full code Admission and Anticipated Discharge Date Admission Date: August 12, 2023 Subjective Patient reports feeling better. SHe has no new complaints. Review of Systems Review of Systems: All systems reviewed & are unremarkable except as noted in HPI & below Physical Exam Physical Exam: Patient is sitting in chair. No distress Card exam is regular without a murmur Lung: wheezing, poor air movements Extremities are without significant edema Results & Data Results & Data Vital Signs (Past 12 Hours) Vital Signs Temp Pulse Pulse Resp BP Pulse Ox O2 Del Method 08/17/23 20:11 84 18 96 Nasal Cannula 08/17/23 15:41 147/77 H 08/17/23 15:33 72 08/17/23 15:23 36.7 C 60 20 97 Nasal Cannula 08/17/23 15:23 150/78 H 08/17/23 12:21 69 18 96 Nasal Cannula 08/17/23 11:49 Nasal Cannula 08/17/23 11:46 36.7 C 72 16 113/71 95 O2 Flow Rate 08/17/23 20:11 2 08/17/23 15:41 08/17/23 15:33 08/17/23 15:23 2 08/17/23 15:23 08/17/23 12:21 2 08/17/23 11:49 2 08/17/23 11:46 PG Care Time/CCT Total # of Minutes Spent Total Time Spent with Patient: Total time spent is greater than 50% in coordination of care (as documented) at patient's floor/unit and/or counseling patient: Coding Level of Care Code 77345 SUB INP/OBS CARE 2/35MIN Diagnoses Respiratory failure J96.90 CAD (coronary artery disease) I25.10 Type 2 diabetes mellitus with microalbuminuria E11.29; R80.9 Inguinal hernia K40.90
[2023-08-18 04:47] LABS: Hematocrit (blood only) 39.8 % (42.0-52.0); Hemoglobin 13.2 g/dl (14.0-18.0); Mean Corpuscular Hemoglobin 29.1 pg (25.0-34.0); Mean Corpuscular Hgb Conc 33.2 g/dL (32.0-36.0); Mean Corpuscular Volume 87.9 fL (80.0-100.0); Mean Platelet Volume 9.9 fL (9.4-12.4); Platelet Count 310 K/uL (130-400); RDW Coefficient of Variation 13.5 % (11.5-14.5); RDW Standard Deviation 43.3 fL (36.4-46.3); Red Blood Count 4.53 M/uL (4.70-6.10); White Blood Count 13.86 K/ul (4.8-10.8)
[2023-08-18 05:00] LABS: BUN Creatinine Ratio 23.3 (10-20); Calcium 8.6 mg/dl (8.6-10.3); Creatinine Clr Calc Pharmacy 99.7 ml/min; Est GFR (African American) 109.3 ml/min; Est GFR (Non-African American) 94.3 ml/min; Magnesium 1.9 mg/dl (1.7-2.4); Phosphorus 3.1 mg/dl (2.5-4.9); Potassium 3.6 mmol/L (3.5-5.1)
--- NOTE | 2023-08-18 22:40 | Hospitalist Progress Note ---
Date of Service August 18, 2023 Assessment & Plan (1) Respiratory failure: Plan: acute on chronic respiratory failure with hypoxia ( GOLD D COPD) with septic shock from gram negative pneumonia sepsis resolving emergently intubated, extubated 08/12 MRSA swab negative Bronchoscopy 08/11 with cultures preliminary gram-negative. Cefepime 2 g IV every 12 hours Azithromycin discontinued on 08/13 Methylprednisolone transitioned to hydrocortisone due to inappropriately low am cortisol begin tapering to off over the next few days Patient able to be tapered off pressors did receive midodrine duonebs discontinued. Aluberol nebs as needed Patient is negative for COVID 19/influenza A and B, and RSV On 08/13, Contacted who does not live with pt, Terrie, added incruse on 08/14 Son was updated on 08/14 Patient appears to be improving on 08/15 continue to wean off oxygen. Patient though requires nasal cannula. Bronch washings showing pseudomonas. will require about 10 days of antibiotics total. Last dose of cefepime 2 gr IV q8hh will be 08/23 in the AM (2) CAD (coronary artery disease): Plan: typically on aspirin, losartan, blood pressure is low will restart when able echo 08/11 with preserved EF (3) Type 2 diabetes mellitus with microalbuminuria: Plan: hold empagliflozin, on ssi and icu diabetic management (4) Inguinal hernia: Plan: Possible low-grade bowel obstruction surgical consult feels hernia is reduced at bedside 08/623 at 0929 Due to right inguinal hernia containing a small bowel loop as noted on CT NG tube to low intermittent suction Follow serial examinations Plan enoxaparin for DVT prevention full code Admission and Anticipated Discharge Date Admission Date: August 12, 2023 Subjective 82 yo male reports no new symptoms. Patient reports to be breathing better. Review of Systems Review of Systems: All systems reviewed & are unremarkable except as noted in HPI & below Physical Exam Physical Exam: Patient is sitting in chair. No distress Card exam is regular without a murmur Lung: wheezing, poor air movements Extremities are without significant edema Results & Data Results & Data Vital Signs (Past 12 Hours) Vital Signs Temp Pulse Pulse Resp BP BP Pulse Ox 08/18/23 21:35 08/18/23 21:04 64 19 126/83 94 08/18/23 20:26 65 18 95 08/18/23 20:00 36.6 C 03/12/24 15:33 36.9 C 08/18/23 15:13 65 22 94 08/18/23 15:13 131/77 08/18/23 14:28 66 20 95 08/18/23 12:00 37.2 C 78 16 130/75 94 08/18/23 11:36 O2 Del Method O2 Flow Rate 08/18/23 21:35 Nasal Cannula 2 08/18/23 21:04 08/18/23 20:26 Nasal Cannula 2 08/18/23 20:00 08/18/23 15:33 08/18/23 15:13 Nasal Cannula 2 08/18/23 15:13 08/18/23 14:28 Nasal Cannula 2 08/18/23 12:00 Nasal Cannula 2 08/18/23 11:36 Nasal Cannula 2 PG Care Time/CCT Total # of Minutes Spent Total Time Spent with Patient: Total time spent is greater than 50% in coordination of care (as documented) at patient's floor/unit and/or counseling patient: Coding Level of Care Code 60796 SUB INP/OBS CARE MIN Diagnoses Respiratory failure J96.90 CAD (coronary artery disease) I25.10 Type 2 diabetes mellitus with microalbuminuria E11.29; R80.9 Inguinal hernia K40.90
[2023-08-19 06:43] LABS: BUN Creatinine Ratio 21.4 (10-20); Calcium 8.7 mg/dl (8.6-10.3); Creatinine Clr Calc Pharmacy 85.2 ml/min; Est GFR (African American) 102.6 ml/min; Est GFR (Non-African American) 88.5 ml/min; Magnesium 1.9 mg/dl (1.7-2.4); Phosphorus 2.3 mg/dl (2.5-4.9); Potassium 3.2 mmol/L (3.5-5.1)
[2023-08-19] MEDS: CEFEPIME 2,000 MG in SYRINGE 0 ML IV SCH (12:39)
--- NOTE | 2023-08-19 22:57 | Hospitalist Progress Note ---
Date of Service August 19, 2023 Assessment & Plan (1) Respiratory failure: Plan: acute on chronic respiratory failure with hypoxia ( GOLD D COPD) with septic shock from gram negative pneumonia sepsis resolving emergently intubated, extubated 08/12 MRSA swab negative Bronchoscopy 08/11 with cultures preliminary gram-negative. Cefepime 2 g IV every 12 hours Azithromycin discontinued on 08/13 Methylprednisolone transitioned to hydrocortisone due to inappropriately low am cortisol begin tapering to off over the next few days Patient able to be tapered off pressors did receive midodrine duonebs discontinued. Aluberol nebs as needed Patient is negative for COVID 19/influenza A and B, and RSV On 08/13, Contacted who does not live with pt, Terrie, added incruse on 08/14 Son was updated on 08/14 Patient appears to be improving on 08/15 continue to wean off oxygen. Patient though requires nasal cannula. Bronch washings showing pseudomonas. will require about 10 days of antibiotics total. Last dose of cefepime 2 gr IV q8hh will be 08/23 in the AM Likely discharge on 08/19 as patient wll be going to SNF. (2) CAD (coronary artery disease): Plan: typically on aspirin, losartan, blood pressure is low will restart when able echo 08/11 with preserved EF (3) Type 2 diabetes mellitus with microalbuminuria: Plan: hold empagliflozin, on ssi and icu diabetic management (4) Inguinal hernia: Plan: Possible low-grade bowel obstruction surgical consult feels hernia is reduced at bedside 08/623 at 0929 Due to right inguinal hernia containing a small bowel loop as noted on CT NG tube to low intermittent suction Follow serial examinations Plan enoxaparin for DVT prevention full code Admission and Anticipated Discharge Date Admission Date: August 12, 2023 Subjective Patient reports feeling well. No new complatins. Review of Systems Review of Systems: All systems reviewed & are unremarkable except as noted in HPI & below Physical Exam 2 Physical Exam: Patient is sitting in chair. No distress Card exam is regular without a murmur Lung: clear. Extremities are without significant edema Results & Data Results & Data Vital Signs (Past 12 Hours) Vital Signs Temp Pulse Pulse Pulse Resp BP Pulse Ox 08/19/23 20:21 58 L 16 98 08/19/23 20:00 08/19/23 20:00 36.4 C L 70 16 139/82 95 08/19/23 17:05 37.1 C 93 H 23 116/67 93 08/19/23 13:42 76 08/19/23 12:00 86 20 103/65 93 O2 Del Method O2 Flow Rate 08/19/23 20:21 Nasal Cannula 2 08/19/23 20:00 Nasal Cannula 2 08/19/23 20:00 Nasal Cannula 2 08/19/23 17:05 Nasal Cannula 08/19/23 13:42 08/19/23 12:00 Nasal Cannula 2 PG Care Time/CCT Total # of Minutes Spent Total Time Spent with Patient: Total time spent is greater than 50% in coordination of care (as documented) at patient's floor/unit and/or counseling patient: Coding Level of Care Code 71064 SUB INP/OBS CARE 2/35MIN Diagnoses Respiratory failure J96.90 CAD (coronary artery disease) I25.10 Type 2 diabetes mellitus with microalbuminuria E11.29; R80.9 Inguinal hernia K40.90
[2023-08-20 04:07] LABS: Hematocrit (blood only) 38.4 % (42.0-52.0); Hemoglobin 12.8 g/dl (14.0-18.0); Mean Corpuscular Hemoglobin 29.2 pg (25.0-34.0); Mean Corpuscular Hgb Conc 33.3 g/dL (32.0-36.0); Mean Corpuscular Volume 87.7 fL (80.0-100.0); Mean Platelet Volume 9.7 fL (9.4-12.4); Platelet Count 322 K/uL (130-400); RDW Coefficient of Variation 13.9 % (11.5-14.5); Red Blood Count 4.38 M/uL (4.70-6.10); White Blood Count 14.93 K/ul (4.8-10.8)
[2023-08-20 04:29] LABS: BUN Creatinine Ratio 20.9 (10-20); Calcium 8.7 mg/dl (8.6-10.3); Est GFR (African American) 104.4 ml/min; Est GFR (Non-African American) 90.1 ml/min; Potassium 3.6 mmol/L (3.5-5.1)
--- NOTE | 2023-08-20 07:36 | Hospitalist Progress Note ---
Date of Service August 20, 2023 Assessment & Plan (1) Respiratory failure: Plan: acute on chronic respiratory failure with hypoxia ( GOLD D COPD) with septic shock from gram negative pneumonia sepsis ->resolving emergently intubated, extubated 08/12 MRSA swab negative Bronchoscopy 08/11 with cultures preliminary gram-negative.Bronch washings showing pseudomonas. Cefepime 2 g IV every 12 hours will require about 10 days of antibiotics total. Last dose of cefepime 2 gr IV q8hh will be 08/23 in the AM Azithromycin discontinued on 08/13 Methylprednisolone transitioned to hydrocortisone due to inappropriately low am cortisol begin tapering to off over the next few days Patient able to be tapered off pressors did receive midodrine duonebs discontinued. added incruse on 08/14 Aluberol nebs as needed Patient is negative for COVID 19/influenza A and B, and RSV On 08/13, Contacted who does not live with Terrie treviño, (2) CAD (coronary artery disease): Plan: typically on aspirin, losartan, blood pressure is low will restart when able echo 08/11 with preserved EF (3) Type 2 diabetes mellitus with microalbuminuria: Plan: hold empagliflozin, on ssi and icu diabetic management (4) Inguinal hernia: Plan: Possible low-grade bowel obstruction surgical consult feels hernia is reduced at bedside 08/623 at 0929 Due to right inguinal hernia containing a small bowel loop as noted on CT NG tube to low intermittent suction Follow serial examinations Plan enoxaparin for DVT prevention full code Admission and Anticipated Discharge Date Admission Date: August 12, 2023 Physical Exam Physical Exam: Patient still has increased work of breathing accessory muscle use rhonchorous breath sounds bilaterally Card exam is regular without a murmur Extremities are without significant edema Results & Data Results & Data Vital Signs (Past 12 Hours) Vital Signs Temp Pulse Pulse Resp BP Pulse Ox O2 Del Method 08/20/23 04:00 97.9 F 71 16 126/78 93 Nasal Cannula 08/20/23 00:15 65 16 96 Nasal Cannula 08/20/23 00:00 77 08/19/23 23:41 98.1 F 68 17 124/72 95 Nasal Cannula 08/19/23 20:21 58 L 16 98 Nasal Cannula 08/19/23 20:00 Nasal Cannula 08/19/23 20:00 97.5 F L 70 16 139/82 95 Nasal Cannula O2 Flow Rate 08/20/23 04:00 2 08/20/23 00:15 2 08/20/23 00:00 08/19/23 23:41 2 08/19/23 20:21 2 08/19/23 20:00 2 08/19/23 20:00 2 PG Care Time/CCT Total # of Minutes Spent Total Time Spent with Patient: Total time spent is greater than 50% in coordination of care (as documented) at patient's floor/unit and/or counseling patient: Coding Diagnoses Respiratory failure J96.90 CAD (coronary artery disease) I25.10 Type 2 diabetes mellitus with microalbuminuria E11.29; R80.9 Inguinal hernia K40.90
--- NOTE | 2023-08-20 17:07 | Discharge Summary ---
Date of Service August 20, 2023 Admission HPI Per Admitting Provider The patient is an 82-year-old male with a past medical history including tobacco use disorder, CAD, hypertension, chronic bronchitis, chronic COPD, diabetes mellitus with microalbuminuria, BPH, severe COPD, hyperlipidemia and dysphagia. He was most recently admitted to [facility] from 07/04-07/07/2023 for pneumonia. Workup in the emergency department included negative testing for COVID, influenza a and B and RSV. Laboratories were primarily abnormal related to a glucose of 164. CT scan of the chest was suggestive of a multifocal pneumonia, left greater than right. The patient had been given azithromycin 5 mg IV, cefepime 2 g IV, Solu-Medrol 60 mg IV and normal saline at 125 MLS per hour by the emergency department, with plans to continue the cefepime, azithromycin and methylprednisolone 40 mg IV every 8 hours. He was changed to normal saline plus KCl 20 mill equivalents at 80 mL/h x 1 L. However, shortly after he was moved to room a floor in the emergency department he became unresponsive, was intubated, and patient was admitted to the ICU for ongoing care. En route to the ICU, patient had CT scan of head which was negative for acute event. A CT scan of abdomen and pelvis at that time showed a possible low-grade bowel obstruction due to a herniated small bowel loop within a right inguinal hernia. Principal Diagnosis Respiratory failure status postintubation extubation Acute on chronic exacerbation of respiratory failure with hypoxia Pseudomonas pneumonia Discharge Exam Patient awake alert. He is on supplemental oxygen He is in no distress cardiac exam is regular lungs are distant but clear Discharge Data Allergies Allergy/AdvReac Type Severity Reaction Status Date / Time No Known Allergies Allergy Mild Verified 08/11/23 23:53 Consultations 08/12/23 01:41 ED Decision to Admit Stat 08/12/23 02:32 Consult Hand Profiler Routine 08/12/23 08:42 Consult General Surgery Routine Ordered Studies Chest X-Ray 08/11/23 20:10 XR chest 1V not portable CLINICAL HISTORY: Chest pain, nonspecific TECHNIQUE: Single frontal radiograph of the chest was obtained. Comparison: Comparison is made to chest radiograph 07/24/2023 FINDINGS: No lines and tubes are seen. Calcified aortic knob is seen. Emphysema is seen. No evidence of pleural effusion or pneumothorax. IMPRESSION: Emphysema without acute abnormality. ACT 112: Negative or not required by law. Electronically signed by: Jorje Espinal M.D. 08/12/2023 7:[address] 08/11/23 23:04 Exam(s): CT CHEST With Contrast IV Amt: 84 ml optiray 320 EXAM: CT Chest With Intravenous Contrast CLINICAL HISTORY: Reason for exam: pneumonia, copd, hx recurrent pna. TECHNIQUE: Axial computed tomography images of the chest with intravenous contrast. Automated exposure control was utilized for the study. A dose lowering technique was utilized adhering to the principles of ALARA. CONTRAST: Patient received 84 ml optiray 320 of IV contrast COMPARISON: No relevant prior studies available. FINDINGS: Lungs: Moderate centrilobular emphysema. Atelectasis at the lung bases. No pneumonia or pneumothorax. No pleural effusion. No mass. Pleural space: See above. Heart: Unremarkable. No cardiomegaly. No significant pericardial effusion. No significant coronary artery calcifications. Bones/joints: Degenerative changes of the spine. No acute fracture. No dislocation. Soft tissues: Unremarkable. Vasculature: Atherosclerotic changes of the aorta. No thoracic aortic aneurysm. Lymph nodes: Unremarkable. No enlarged lymph nodes. Liver: Hepatic steatosis. IMPRESSION: Moderate centrilobular emphysema. Atelectasis at the lung bases. No pneumonia or pneumothorax. No pleural effusion. Electronically signed by: Josiah Tejada MD 08/11/23 23:[address] 08/12/23 00:55 Exam(s): CT HEAD Without Contrast EXAM: CT Head Without Intravenous Contrast CLINICAL HISTORY: Reason for exam: altered mental status. TECHNIQUE: Axial computed tomography images of the head/brain without intravenous contrast. CTDI is 61.39 mGy and DLP is 3018.63 mGy-cm. Automated exposure control was utilized for the study. A dose lowering technique was utilized adhering to the principles of ALARA. COMPARISON: CT Head dated 08/23/2022 FINDINGS: Brain: Volume loss with prominent ventricles and sulci. Periventricular and subcortical white matter hypoattenuation likely reflects chronic small vessel disease. 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 No hemorrhage. Ventricles: See above. Bones/joints: Unremarkable. No acute fracture. Soft tissues: Unremarkable. Sinuses: Left maxillary sinus mucosal thickening and small fluid level. Mastoid air cells: Unremarkable as visualized. No mastoid effusion. Orbits: Bilateral intraocular lens implants. IMPRESSION: 1. No evidence of acute intracranial abnormality. 2. Left maxillary sinus mucosal thickening and small fluid level. Correlate for acute sinusitis. Electronically signed by: Radha Burton M.D. 08/12/23 02:31 AM Chest X-Ray 08/12/23 01:07 XR chest 1V portable, XR chest 1V portable CLINICAL HISTORY: ET Placement TECHNIQUE: Single frontal radiograph of the chest was obtained at 0101 hours and 0326 hours. Comparison: Comparison is made to chest radiograph 08/11/2023 FINDINGS: 0101 hours: An endotracheal tube terminates approximately 26 mm from the sabiha. The cardiomediastinal silhouette is normal. Extensive emphysema and interstitial thickening is seen. There is faint airspace opacity in the bilateral lower gisele ngs. No evidence of pleural effusion or pneumothorax. 0326 hours: Endotracheal tube measures 2.7 cm from sabiha. Enteric tube tip and side-port lie below the diaphragm. Remaining findings are unchanged. IMPRESSION: 1. In the final image, endotracheal and enteric tubes are in satisfactory position. 2. Interstitial thickening and bilateral lower lung predominant airspace opacities. ACT 112: Negative or not required by law. Electronically signed by: Jorje Espinal M.D. 08/12/2023 7:05 AM Abdomen/Pelvis CT 08/12/23 01:26 Exam(s): CT ABDOMEN + PELVIS Without Contrast EXAM: CT Abdomen and Pelvis Without Intravenous Contrast CLINICAL HISTORY: Reason for exam: unresponsive episode. TECHNIQUE: Axial computed tomography images of the abdomen and pelvis without intravenous contrast. Automated exposure control was utilized for the study. A dose lowering technique was utilized adhering to the principles of ALARA. COMPARISON: CT chest today. FINDINGS: Lung bases: Bibasilar atelectasis/airspace disease. ABDOMEN: Liver: Unremarkable. Gallbladder and bile ducts: Unremarkable. No calcified stones. No ductal dilation. Pancreas: Unremarkable. No ductal dilation. Spleen: Unremarkable. No splenomegaly. Adrenals: Unremarkable. No mass. Kidneys and ureters: Unremarkable. No obstructing stones. No hydronephrosis. Stomach and bowel: Colonic diverticulosis. Bilateral inguinal hernias. Right inguinal hernia contains a small bowel loop. Proximal to it mildly distended small bowel loops with mottled contents and fluid. Left inguinal hernia containing fat. No mucosal thickening. PELVIS: Appendix: No findings to suggest acute appendicitis. Bladder: Unremarkable. No stones. Reproductive: Enlarged prostate. ABDOMEN and PELVIS: Intraperitoneal space: Unremarkable. No free air. No significant fluid collection. Bones/joints: Degenerative changes of the spine. No acute fracture. No dislocation. Soft tissues: See above. Vasculature: Moderate aortoiliac vascular calcifications. No abdominal aortic aneurysm. Lymph nodes: Unremarkable. No enlarged lymph nodes. Tubes, lines and devices: Enteric tube tip in the mid stomach. IMPRESSION: 1. Right inguinal hernia contains a small bowel loop. Proximal to it mildly distended small bowel loops with mottled contents and fluid. Possible low-grade bowel obstruction due to the herniated loop. 2. Bibasilar atelectasis/airspace disease. 3. Colonic diverticulosis. Electronically signed by: Radha Burton M.D. 08/12/23 03:04 AM Chest X-Ray 08/12/23 03:19 XR chest 1V portable, XR chest 1V portable CLINICAL HISTORY: ET Placement TECHNIQUE: Single frontal radiograph of the chest was obtained at 0101 hours and 0326 hours. Comparison: Comparison is made to chest radiograph 08/11/2023 FINDINGS: 0101 hours: An endotracheal tube terminates approximately 26 mm from the sabiha. The cardiomediastinal silhouette is normal. Extensive emphysema and interstitial thickening is seen. There is faint airspace opacity in the bilateral lower lungs. No evidence of pleural effusion or pneumothorax. 0326 hours: Endotracheal tube measures 2.7 cm from sabiha. Enteric tube tip and side-port lie below the diaphragm. Remaining findings are unchanged. IMPRESSION: 1. In the final image, endotracheal and enteric tubes are in satisfactory position. 2. Interstitial thickening and bilateral lower lung predominant airspace opacities. ACT 112: Negative or not required by law. Electronically signed by: Jorje Espinal M.D. 08/12/2023 7:05 AM Chest CTA 08/12/23 05:08 Exam(s): CTA CHEST IV Amt: 116 ml optiray 320 EXAM: CT Angiography Chest With Intravenous Contrast CLINICAL HISTORY: Reason for exam: PE. TECHNIQUE: Axial computed tomographic angiography images of the chest with intravenous contrast. Automated exposure control was utilized for the study. A dose lowering technique was utilized adhering to the principles of ALARA. MIP reconstructed images were created and reviewed. COMPARISON: No relevant prior studies available. FINDINGS: Pulmonary arteries: Motion affect limits diagnostic accuracy. Despite this, no evidence of pulmonary embolism within the pulmonary outflow tract or immediate proximal branches. Aorta: Atherosclerotic disease. No thoracic aortic aneurysm. Lungs: Severe upper lobe predominant centrilobular emphysema. Dependent consolidation at the lung bases appear findings likely relate to infection/aspiration changes. Pleural space: Small bilateral pleural effusions, likely reactive. No pneumothorax. Heart: Unremarkable. No cardiomegaly. No significant pericardial effusion. No evidence of RV dysfunction. Mediastinum: Mild esophageal thickening which may be inflammatory nature. 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 No acute fracture. No dislocation. Soft tissues: Unremarkable. Lymph nodes: Unremarkable. No enlarged lymph nodes. Kidneys and ureters: Right renal hypodensity in the superior pole measuring up to 1.5 cm which likely relates to a cyst. Consider dedicated imaging on a nonemergent basis. Tubes, lines and devices: Gastric drainage tube with tip noted in the gastric body. The endotracheal tube (ETT) is in satisfactory position with tip 1.3 cm above the sabiha. IMPRESSION: 1. Motion affect limits diagnostic accuracy. Despite this, no evidence of pulmonary embolism within the pulmonary outflow tract or immediate proximal branches. 2. Dependent consolidation at the lung bases appear findings likely relate to infection/aspiration changes. 3. Small bilateral pleural effusions, likely reactive. 4. Right renal hypodensity in the superior pole measuring up to 1.5 cm which likely relates to a cyst. Consider dedicated imaging on a nonemergent basis. Electronically signed by: Moisés Sanchez MD 08/12/23 06:07 AM Chest X-Ray 08/14/23 07:43 SINGLE VIEW CHEST CLINICAL HISTORY: Respiratory failure FINDINGS: An AP, portable, upright chest radiograph is compared to chest x-ray and chest CT dated 08/12/2023. Endotracheal and enteric tubes have been removed. The heart is enlarged noting atherosclerotic calcification of the thoracic aorta. There is pulmonary vascular congestion. Advanced emphysema and chronic interstitial thickening similar to previous. Multifocal airspace consolidation is again noted, greatest at the lung bases. No large pleural effusion or pneumothorax is seen. The skeletal structures are osteopenic. The bony thorax is grossly intact. IMPRESSION: 1. Endotracheal and enteric tubes have been removed. 2. Cardiomegaly and emphysema with pulmonary vascular congestion. 3. Multifocal airspace consolidation is again noted, greatest at the lung bases. Continued radiographic follow-up to resolution is recommended. ACT 112: Negative or not required by law. Electronically signed by: Fabian Mcneil M.D. 08/14/2023 7:48 AM Hospital Course (1) Respiratory failure: acute on chronic respiratory failure with hypoxia ( GOLD D COPD) with septic shock from gram negative pneumonia sepsis ->resolving emergently intubated, extubated 08/12 MRSA swab negative Bronchoscopy 08/11 with cultures preliminary gram-negative.Bronch washings showing pseudomonas. Cefepime 2 g IV every 12 hours will require about 10 days of antibiotics total. Last dose of cefepime 2 gr IV q8hh will be 08/23 in the AM Azithromycin discontinued on 08/13 Methylprednisolone transitioned to hydrocortisone due to inappropriately low am cortisol prednisone tapering dose with hopeful outpatient follow-up Patient able to be tapered off pressors did receive midodrine duonebs discontinued. added incruse on 08/14 Aluberol nebs as needed Patient is negative for COVID 19/influenza A and B, and RSV On 08/13, Contacted who does not live with pt, Terrie, (2) CAD (coronary artery disease): typically on aspirin, losartan, blood pressure is low will restart echo 08/11 with preserved EF (3) Type 2 diabetes mellitus with microalbuminuria: hold empagliflozin, on ssi and icu diabetic management (4) Inguinal hernia: Possible low-grade bowel obstruction surgical consult feels hernia is reduced at bedside 08/623 at 0929 Due to right inguinal hernia containing a small bowel loop as noted on CT NG tube to low intermittent suction Follow serial examinations Plan full code Total Time Total Time Spent Total Time Spent (In Minutes): It required greater than 30 minutes to prepare this patient for discharge. Discharge Plan Discharge Items Patient Disposition: Transfer [facility] Reason For Visit: ACUTE RESP FAILURE, PNEUMONIA Discharge Diagnosis: acute respiratory failuer due to gram negative pneumonia inguinal hernia Activity: Per Instructions section Activity Comment: PT/OT Non-emergency contact: Primary Care Provider Call non-emergency contact if: your symptoms worsen Follow-up/Referrals: Kimberlee Syed MD [Primary Care Provider] - Diet: Carb Consistent or DM2 Addtl Attending Provider Instructions: complete antibiotics thru 08/24/23 taper steroids for COPD exacerbation restart home meds for diabetes and follow Pending Studies at Discharge: No Stand-Alone Forms: My [facility] Skilled Items Patient informed of condition?: Yes DNR: No Discharge Level of Care: Skilled Communicable Disease: No Discharge Prognosis: Stable Lines: None Urinary Catheter: No Medications and DC Order Prescriptions: New insulin aspart U-100 [Novolog U-100 Insulin aspart] 100 unit/mL Solution 1 unit SC ACHS Qty: 10 0RF Rx Instructions: Goal BSG Range: Low 110 mg/dL, High 150 mg/dL --Correction Factor: 25 mg/dL/unit - fludrocortisone 0.1 mg Tablet 0.1 mg PO QAM Qty: 30 0RF (DME) Oxygen Home E0424 Liters Per Minute See Rx Instructions .Route Qty: 2 0RF Rx Instructions: As directed cefepime 2 gram recon soln 2 g IV Q8H 5 Days prednisone 10 mg tablet 10 mg PO DIRECTED Qty: 40 0RF Rx Instructions: 4 a day x 4 d>3 a day x 4 d>2 a day x 4 d>1 a day Continued levothyroxine 88 mcg tablet 88 mcg PO QAM Qty: 90 3RF ipratropium-albuterol 0.5 mg-3 mg(2.5 mg base)/3 mL solution for nebulization 3 ml inhalation Q4H PRN (Reason: shortness of breath or wheezing) Qty: 180 3RF Spiriva Respimat 2.5 mcg/actuation mist 2 puff inhalation DAILY Qty: 3 3RF azelastine 137 mcg (0.1 %) aerosol,spray 1 spray intranasal BID Qty: 30 3RF Rx Instructions: administer into each nostril empagliflozin 25 mg tablet 25 mg PO QAM Qty: 90 3RF (DME) OneTouch Ultra Test Strip See Rx Instructions .Route Qty: 200 3RF Rx Instructions: Test Twice per day as needed aspirin 81 mg tablet,delayed release (DR/EC) 81 mg PO QAM Dulera 200-5 mcg/actuation HFA aerosol inhaler 2 puff inhalation BID Qty: 13 3RF losartan 25 mg tablet 25 mg PO DAILY metformin 500 mg tablet extended release 24 hr 1,000 mg PO BID (DME) Oxygen Home E0424 Liters Per Minute See Rx Instructions .ROUTE .MEDSUPPLY Qty: 1 0RF Rx Instructions: 2 liters with activity/ambulation. Held albuterol sulfate 90 mcg/actuation HFA aerosol inhaler 2 inh inhalation QID PRN (Reason: shortness of breath or wheezing) Qty: 18 3RF Hold Instructions: Resume on 09/03/23. Discharge Orders: Discharge Order (Routine); Ordered 08/20/23 Ordered By: Jon Sandoval/Other Patient Handouts: Managing Type 2 Diabetes Admission Data Admit Date/Time: 08/12/23 01:34 Attending Provider: Jon Mclain Admit Provider: Jayme Obrien Primary Care Provider: Kimberlee Syed Other Providers: [facility]; Jayme Obrien; Reza Herrmann; Dinesh Castro; Gustabo Mora; Patti Roca; Lan Fritz; Anibal Marion; Vivian Green; Lydia Kumar; Benigno Thompson Jr; Juan C Live; Moisés Lam; Iliana Singletary; [facility]; Josette Layton at [place] Other Interventions: Discharge Summary Assessment (RN) Last Done: 08/20/23 09:16 Coding Level of Care Code 22391 INP/OBS DISCH >30 MIN Diagnoses Respiratory failure J96.90 CAD (coronary artery disease) I25.10 Type 2 diabetes mellitus with microalbuminuria E11.29; R80.9 Inguinal hernia K40.90
--- NOTE | 2023-08-24 15:21 | Coding Query ---
PRESENT ON ADMISSION QUERY To promote full compliance with coding requirements relating to pateint care, physician participation is requested in all cases of certified medical coder uncertainty. Please assist us with the question(s) below: Please place an X within the parenthesis (x). The following diagnosis listed in this patient's medical record require physician assistance to determine if they were present on admission (POA) or not. Please advise for each diagnosis whether it was present on admission, not present on admission, or if it was clinically undetermined. 1. SEPTIC SHOCK (documentation begins on the 08/11 Progress Note) ( x) Present On Admission ( ) Not Present On Admission ( ) Clinically Undetermined Thank you Mary Valentin *Definition of the present on admission (POA)-Present on admission is defined as present at the time the order for inpatient admission occurs. Conditions that develop during an outpatient encounter prior to a written order for inpatient admission (including emergency department, observation, or outpatient surgery) are considered present on admission. MTDD
== END 2023-08-20 13:15 | DRG 871 ==
LOC: ED 19:54 → SUATTDRO 23:53 → 1E 23:53 → SUATTDRO 08-12 01:34 → 1E 08-12 04:00

== ENCOUNTER 2023-12-12 11:19 | Observation (INO) ==
--- NOTE | 2023-12-12 11:33 | Emergency Department Note ---
Impression & Plan SOB (shortness of breath), COPD exacerbation, Tachycardia ED Provider Note NAME: KATHERYN TORREZ Jr AGE: 83 SEX: M : 1940 ARRIVES VIA: Ambulance INFORMANT: [Patient][EMS] ED PROVIDER(S): [Fabian Paul MD] CHIEF COMPLAINT: Short of breath HISTORY OF PRESENT ILLNESS: The patient is an 83-year-old male who has a history of COPD. He has a nebulizer machine at home. In the last week, he has been more short of breath, his nebulizer treatment has helped. Today, he was quite short of breath and EMS was called. He received 125 mg of IV Solu-Medrol and 2 DuoNeb's in route, he is feeling somewhat improved. Patient is typically on 2 L of oxygen at all times. He states that he has not noticed increased cough or fever. No chest pain. No sick contacts. PMHx/PSHx/Social Hx: See Below PHYSICAL EXAM: GENERAL: Patient is in no acute distress. HEENT: No acute trauma, normocephalic atraumatic, mucous membranes moist, no nasal congestion. NECK: No stridor, no adenopathy, no meningismus, trachea is midline. LUNGS: Diminished breath sounds bilaterally, no wheezing or rhonchi. No obvious respiratory distress. HEART: Without murmurs gallops or rubs, regular rate and rhythm. Heart tones are distant. ABDOMEN: Soft, nontender, no peritonitis. EXTREMITIES: No cyanosis, full range of motion of all the joints without pain or difficulty. Mild bilateral pedal edema. NEUROLOGIC: Oriented x 3, no acute motor or sensory deficits, no focal weakness. SKIN: No jaundice, no diaphoresis. DIFFERENTIAL DIAGNOSIS: Exacerbation of COPD, CHF, pneumonia, bronchitis, anemia, cardiac ischemia, among others. EMERGENCY DEPARTMENT PROCEDURES: MEDICAL DECISION MAKING: There is no leukocytosis or concerning anemia. There is a normal platelet count. No coagulopathy. No renal failure or significant electrolyte abnormality. No concerning liver enzyme elevation. BNP was not elevated making CHF unlikely. ECG showed a sinus tachycardia, no obvious ischemia. Cardiac enzyme testing x 1 was not consistent with acute cardiac injury. Respiratory bio fire was negative. Chest x-ray does show some chronic change, no focal pneumonia or CHF. Chest CT did not show PE, findings of COPD were noted. Patient received a third DuoNeb here in the ED. He was given a 500 cc saline bolus. As he had received steroids prior to arrival, no additional steroid was administered. The patient presents with escalating difficulty breathing for the last week. He has received now 3 DuoNebs in a short timeframe. He does present tachycardic. I do think a hospital stay would be warranted. The patient appears to have a flare of COPD as the cause for his dyspnea. I did speak with the patient and case management, the on-call hospitalist was consulted. Prior/Outside records/notes reviewed: Today's EMS notes describing his presentation and transport to this hospital. ECG per my interpretation: Indication was short of breath. The ECG shows a sinus tachycardia with a first degree AV block. There is a PVC. There is no acute ST elevation. The QTc is 500. Continuous Cardiac Monitoring per my interpretation: An order was placed for continuous cardiac monitoring. The monitor shows a rate of 99 with sinus rhythm with a first-degree block. Imaging/x-ray results per my interpretation: Chest x-ray shows some chronic lung change, I see no focal pneumonia, CHF or pneumothorax. Chronic Medical/Social conditions affecting care: Advanced age, history of COPD Care/Management discussed with: Case management, the on-call hospitalist. Level of care consideration(s): After review of the information above and other included data: --I believe the patient requires escalation of care to admission DISPOSITION: Admission Past Med/Surg History Problem List (Updated 12/12/23 @ 16:53 by Fabian Paul MD) Tachycardia (Acute) COPD exacerbation (Acute) SOB (shortness of breath) (Acute) Leg edema Chronic hypoxic respiratory failure Acute exacerbation of chronic obstructive pulmonary disease (COPD) Loss of smell Hearing loss Inguinal hernia Acute respiratory failure with hypoxia Intra-abdominal hernia Elevated bilirubin CAD (coronary artery disease) Hypertension Actinic keratosis Chronic bronchitis Chronic obstructive pulmonary disease (Acute) Type 2 diabetes mellitus with microalbuminuria Urinary urgency BPH (benign prostatic hyperplasia) Diplopia Hyperlipidemia Urinary frequency Hypothyroidism Dysphagia Chronic sinusitis (Chronic) Chronic dyspnea (Chronic) Medical History Required emergent intubation Pneumonia COPD, severe Tobacco abuse Neck pain Abnormal chest CT Pneumonia Severe protein-calorie malnutrition Pneumonia Hypersomnolence COPD with emphysema inhalers daily/prn, nebulizer prn COPD (chronic obstructive pulmonary disease) case management patient Acquired deviated nasal septum Chronic gout Frequent PVCs Incidental lung nodule, > 3mm and < 8mm Tobacco use Chronic diarrhea Surgical History Hx of vasectomy History of colonoscopy last 2018 History of Mohs micrographic surgery for skin cancer x3 History of wisdom tooth extraction History of bilateral cataract extraction History of appendectomy age 11 History of tonsillectomy Family History Other No family history of adverse response to anesthesia No family history of bleeding disorder Denies family history of Ovarian cancer Prostate cancer Myocardial infarction Breast cancer Colorectal cancer Social History Smoking Status: Former smoker Tobacco Type: Cigarettes Age Started Using Tobacco: 21; Age Quit Using Tobacco: 82; packs per day: 2; Second Hand Exposure: No; Do You Dip or Chew Tobacco: No; Hx Alcohol Use: No Hx Substance Use: No Preferred Language: Grenadian Communication Ability: Effective Visual Impairment: No Limitations Hearing Ability: Normal Internet Sales Manager Required: No Beliefs That Will Affect Care: None marital status: Single Current Living Situation: Alone current occupational status: retired How many Children do You have: 1 Feels Safe at Home: Yes Dental Care, Regularly: Yes Physical Activity Frequency: 1-2 Times per Week Seatbelt Use: always Sunscreen Use: No Assistive Devices: Oxygen - Continuous Allergies Allergies Allergy/AdvReac Type Severity Reaction Status Date / Time No Known Drug Allergies Allergy Verified 11/04/23 08:49 Home Meds Home Medications Medication Instructions Recorded Confirmed losartan 25 mg tablet 25 mg PO DAILY 07/04/23 12/12/23 metformin 500 mg tablet,extended 1,000 mg PO BID 07/04/23 12/12/23 release 24 hr aspirin 81 mg tablet,delayed 81 mg PO QAM 07/08/23 12/12/23 release Previous Rx's Medication Instructions Recorded Oxygen Home #1 ea 05/19/22 albuterol sulfate 90 mcg/actuation 2 inh inhalation QID PRN shortness 04/15/23 aerosol inhaler of breath or wheezing #18 grams ipratropium 0.5 mg-albuterol 3 mg 3 ml inhalation Q4H PRN shortness 12/04/23 (2.5 mg base)/3 mL nebulization of breath or wheezing #180 vials soln blood sugar diagnostic (OneTouch #200 ea 06/09/23 Ultra Test strips) azelastine 137 mcg (0.1 %) nasal 1 spray intranasal BID #30 mL 07/02/23 spray aerosol Oxygen Home #2 L 08/20/23 levothyroxine 88 mcg tablet 88 mcg PO QAM #90 tabs 09/23/23 mometasone-formoterol HFA 200 2 puff inhalation BID #13 grams 09/23/23 mcg-5 mcg/actuation aerosol inhaler (Dulera) benzonatate 100 mg capsule 100 mg PO TID PRN cough #30 caps 10/09/23 potassium chloride 20 mEq 20 meq PO DAILY #90 tabs 10/09/23 tablet,extended release tiotropium bromide 2.5 2 puff inhalation DAILY #3 Inhalers 10/09/23 mcg/actuation mist for inhalation (Spiriva Respimat) empagliflozin 25 mg tablet 25 mg PO QAM #90 tabs 10/21/23 fludrocortisone 0.1 mg tablet 0.05 mg (1/2 x 0.1 mg) PO QAM #30 11/13/23 tabs Results & Data (ED) Vital Signs Vital Signs - 24 hr 12/12/23 11:10 12/12/23 11:24 12/12/23 11:24 Temperature 36.5 C Temperature Source Oral Pulse Rate 99 H Pulse Rate from SpO2 Sensor Respiratory Rate 18 20 Blood Pressure 156/99 H Blood Pressure Mean 118 Pulse Oximetry 99 Oxygen Delivery Method Non-rebreather Nasal Cannula Oxygen Flow Rate 5 2 Sepsis Recent Fever Within 48 Hours No Sepsis New/Unexplained Change in Mental Status N/A Sepsis Action Taken by Nursing No Action Required 12/12/23 11:27 12/12/23 11:28 12/12/23 11:39 Temperature Temperature Source Pulse Rate 99 H 101 H Pulse Rate from SpO2 Sensor 99 H 97 H Respiratory Rate 18 13 Blood Pressure Blood Pressure Mean Pulse Oximetry 99 99 99 Oxygen Delivery Method Room Air Oxygen Flow Rate Sepsis Recent Fever Within 48 Hours Sepsis New/Unexplained Change in Mental Status Sepsis Action Taken by Nursing 12/12/23 11:45 12/12/23 12:00 12/12/23 12:03 Temperature Temperature Source Pulse Rate 100 H 98 H Pulse Rate from SpO2 Sensor 100 H 98 H Respiratory Rate 14 19 Blood Pressure 133/83 Blood Pressure Mean 99 Pulse Oximetry 96 97 Oxygen Delivery Method Oxygen Flow Rate Sepsis Recent Fever Within 48 Hours Sepsis New/Unexplained Change in Mental Status Sepsis Action Taken by Nursing 12/12/23 12:13 12/12/23 12:30 12/12/23 12:30 Temperature Temperature Source Pulse Rate 84 97 H Pulse Rate from SpO2 Sensor 97 H Respiratory Rate 17 Blood Pressure 137/86 Blood Pressure Mean 98 Pulse Oximetry 94 Oxygen Delivery Method Oxygen Flow Rate Sepsis Recent Fever Within 48 Hours Sepsis New/Unexplained Change in Mental Status Sepsis Action Taken by Nursing 12/12/23 13:06 12/12/23 13:17 12/12/23 13:27 Temperature Temperature Source Pulse Rate 104 H 101 H Pulse Rate from SpO2 Sensor 101 H Respiratory Rate 20 23 Blood Pressure 151/96 H 151/96 H Blood Pressure Mean 114 110 Pulse Oximetry 99 Oxygen Delivery Method Oxygen Flow Rate Sepsis Recent Fever Within 48 Hours Sepsis New/Unexplained Change in Mental Status Sepsis Action Taken by Nursing 12/12/23 13:30 12/12/23 13:33 Temperature Temperature Source Pulse Rate 101 H Pulse Rate from SpO2 Sensor 100 H Respiratory Rate 23 Blood Pressure 151/110 H Blood Pressure Mean 132 Pulse Oximetry 98 Oxygen Delivery Method Oxygen Flow Rate Sepsis Recent Fever Within 48 Hours Sepsis New/Unexplained Change in Mental Status Sepsis Action Taken by Snf Medications Current Medication List: was personally reviewed by me Laboratory Data Attestation: I reviewed the patient's lab results. 12/12/23 11:27 12/12/23 11:27 Lab Results 12/12/23 12/12/23 Range/Units 11:27 11:35 WBC 9.77 (4.8-10.8) K/ul RBC 5.74 (4.70-6.10) M/uL Hgb 16.9 (14.0-18.0) g/dl Hct 51.4 (42.0-52.0) % MCV 89.5 (80.0-100.0) fL MCH 29.4 (25.0-34.0) pg MCHC 32.9 (32.0-36.0) g/dL RDW Std Deviation 44.2 (36.4-46.3) fL RDW Coeff of Samantha 13.5 (11.5-14.5) % Plt Count 248 (130-400) K/uL MPV 10.7 (9.4-12.4) fL Immature Gran % (Auto) 0.3 % Neut % (Auto) 73.7 % Lymph % (Auto) 15.7 % [place] % (Auto) 7.9 % Eos % (Auto) 1.6 % Baso % (Auto) 0.8 % Neut # (Auto) 7.20 H (1.40-6.50) K/uL Lymph # (Auto) 1.53 (1.20-3.40) K/uL [place] # (Auto) 0.77 H (0.11-0.59) K/uL Eos # (Auto) 0.16 (0.00-0.50) K/uL Baso # (Auto) 0.08 (0.00-0.20) K/uL Immature Gran # (Auto) 0.03 (0.01-0.20) K/uL Toxic Vacuolation 1+ PT 10.7 (9.0-12.0) Seconds INR 1.0 (0.9-1.1) APTT 22 (21-31) Seconds PTT Ratio 0.8 Sodium 139 (136-145) mmol/L Potassium 4.1 (3.5-5.1) mmol/L Chloride 103 (98-107) mmol/L Carbon Dioxide 27 (21-32) mmol/L Anion Gap 9 (3-11) BUN 13 (6-23) mg/dl Creatinine 0.80 (0.6-1.4) mg/dl Est Cr Clr Drug Dosing 74.1 ml/min Est GFR ( Amer) 96.4 ml/min Est GFR (Non-Af Amer) 83.2 ml/min BUN/Creatinine Ratio 16.3 (10-20) Glucose 176 H (70-99(Fasting)) mg/dl Calcium 9.5 (8.6-10.3) mg/dl Magnesium 1.8 (1.7-2.4) mg/dl Total Bilirubin 0.8 (0.2-1.0) mg/dl AST 19 (13-39) U/L ALT 12 (7-52) U/L Alkaline Phosphatase 61 (34-104) U/L Troponin I High Sens 8.8 (0-20) pg/ml Total Protein 7.4 (6.0-8.3) gm/dl Albumin 4.6 (3.4-5.0) gm/dl Globulin 2.8 (2.5-4.0) gm/dl Albumin/Globulin Ratio 1.6 (0.9-2) Adenovirus (PCR) Not Detected (NotDetected) B. pertussis DNA (PCR) Not Detected (NotDetected) B.parapertussis DNA PCR Not Detected (NotDetected) C. pneumoniae DNA (PCR) Not Detected (NotDetected) Coronavirus OC43 (PCR) Not Detected (NotDetected) Coronavirus HKU1 (PCR) Not Detected (NotDetected) Coronavirus 229E (PCR) Not Detected (NotDetected) SARS-CoV-2 (PCR) Not Detected (NotDetected) Coronavirus NL63 (PCR) Not Detected (NotDetected) Human Metapneumovir PCR Not Detected (NotDetected) Influenza Type A (PCR) Not Detected (NotDetected) Influenza Type B (PCR) Not Detected (NotDetected) M. pneumoniae (PCR) Not Detected (NotDetected) Parainfluenza 1 (PCR) Not Detected (NotDetected) Parainfluenza 2 (PCR) Not Detected (NotDetected) Parainfluenza 3 (PCR) Not Detected (NotDetected) Parainfluenza 4 (PCR) Not Detected (NotDetected) RSV (PCR) Not Detected (NotDetected) Entero/Rhino (PCR) Not Detected (NotDetected) Administered Medications Methylprednisolone 40 mg/ (Syringe) 0.64 mls @ 1.5 mls/min IV TID AURELIO Stop: 01/11/24 15:44 Last Admin: 12/12/23 16:45 Dose: 1.5 mls/min Documented By: TMP Discontinued Medications Albuterol (Albut/Ipratrop 3mg/0.5mg Neb 3 Ml Vial) 3 ml NEB NOW STA; Protocol Stop: 12/12/23 13:05 Last Admin: 12/12/23 13:14 Dose: 3 ml Documented By: SWD Doxycycline Hyclate (Doxycycline Hyclate 100 Mg Cap) 100 mg PO NOW STA Stop: 12/12/23 14:17 Last Admin: 12/12/23 16:45 Dose: 100 mg Documented By: TMP Sodium Chloride (Nss) 500 mls @ 999 mls/hr IV .Q31M STA Stop: 12/12/23 11:58 Last Infusion: 12/12/23 12:19 Dose: Infused Documented By: Admin: 12/12/23 11:36 Dose: 999 mls/hr Documented By: COLIN Ioversol (Optiray 320 125ml) 119 ml IV ONCE ONE Stop: 12/12/23 12:37 Last Admin: 12/12/23 12:37 Dose: 119 ml Documented By: RAQUEL Imaging Data Radiologist's Impression: Chest X-Ray 12/12/23 11:28 XR chest 1V portable CLINICAL HISTORY: Dyspnea TECHNIQUE: Single frontal radiograph of the chest was obtained. Comparison: Comparison is made to chest radiograph 10/07/2023 FINDINGS: No lines and tubes are seen. Cardiomegaly is noted. The aortic arch is calcified. Bilateral lower lung predominant airspace opacities are seen. No evidence of pleural effusion or pneumothorax. IMPRESSION: Bilateral lower lung predominant airspace opacities which may represent atelectasis, pneumonia, and/or aspiration. ACT 112: Negative or not required by law. Electronically signed by: Jorje Espinal M.D. 12/12/2023 12:11 PM Chest CTA 12/12/23 12:17 CT angio chest PE protocol CLINICAL HISTORY: PE TECHNIQUE: Multidetector row helical CT of the chest was performed with angiographic protocol. Coronal and sagittal reformations were obtained. Coronal and sagittal MIPS were obtained from the axial data set and were submitted for review. Automated dose lowering techniques and/or adjustment according to patient size were utilized for this exam. CT DOSE: 843.83 mGy.cm Comparison: Comparison is made to CT chest 10/02/2023 FINDINGS: Exam is limited by patient motion. Lungs and pleura: Diffuse centrilobular emphysema is seen most prominent in the upper lobes. There is a 10 mm nodule in the right lower lobe (series 4 image 68). Atelectasis versus scarring is seen in the lung bases. Heart and pericardium: Heart size is normal. No pericardial effusion. Vessels: No evidence of pulmonary embolism. Mediastinum and jonas: Unremarkable. Chest wall and lower neck: Small thyroid nodules are noted which do not require follow-up by ACR criteria. Abdomen: Unremarkable. Bones: Degenerative changes in the thoracic spine. IMPRESSION: 1. No acute abnormality and in particular no evidence of pulmonary embolus. 2. Emphysema is seen. Exam is limited by patient motion however there is suggestion of a pulmonary nodule in the right lower lobe. ACT 112: Negative or not required by law. Electronically signed by: Jorje Espinal M.D. 12/12/2023 12:50 PM Discharge Plan Visit Data Chief Complaint: Shortness of Breath/Dyspnea Stated Complaint: SOB ED Provider: Fabian Paul Discharge Problem: SOB (shortness of breath), COPD exacerbation, Tachycardia Patient Disposition: Admitted As Inpatient Condition: Fair Discharge Instructions Interventions: ED Discharge Assessment Last Done: 12/12/23 15:04
[2023-12-12] MEDS: SODIUM CHLORIDE 0.9% 500 ML IV STA (11:36)
[2023-12-12 11:58] LABS: Hematocrit (blood only) 51.4 % (42.0-52.0); Hemoglobin 16.9 g/dl (14.0-18.0); Mean Corpuscular Hemoglobin 29.4 pg (25.0-34.0); Mean Corpuscular Hgb Conc 32.9 g/dL (32.0-36.0); Mean Corpuscular Volume 89.5 fL (80.0-100.0); Mean Platelet Volume 10.7 fL (9.4-12.4); Platelet Count 248 K/uL (130-400); RDW Coefficient of Variation 13.5 % (11.5-14.5); RDW Standard Deviation 44.2 fL (36.4-46.3); Red Blood Count 5.74 M/uL (4.70-6.10); White Blood Count 9.77 K/ul (4.8-10.8)
[2023-12-12 12:05] LABS: Basophils # (auto) 0.08 K/uL (0.00-0.20); Basophils % (auto) 0.8 %; Eosinophils # (auto) 0.16 K/uL (0.00-0.50); Eosinophils % (auto) 1.6 %; Immature Granulocytes # (auto) 0.03 K/uL (0.01-0.20); Immature Granulocytes % (auto) 0.3 %; Lymphocytes # (auto) 1.53 K/uL (1.20-3.40); Lymphocytes % (auto) 15.7 %; Monocytes # (auto) 0.77 K/uL (0.11-0.59); Monocytes % (auto) 7.9 %; Neutrophils % (auto) 73.7 %; Toxic Vacuolation 1+
[2023-12-12 12:08] LABS: Albumin Globulin Ratio 1.6 (0.9-2); Albumin Level 4.6 gm/dl (3.4-5.0); BUN Creatinine Ratio 16.3 (10-20); Bilirubin,Total 0.8 mg/dl (0.2-1.0); Calcium 9.5 mg/dl (8.6-10.3); Creatinine Clr Calc Pharmacy 74.1 ml/min; Est GFR (African American) 96.4 ml/min; Est GFR (Non-African American) 83.2 ml/min; Globulin 2.8 gm/dl (2.5-4.0); Magnesium 1.8 mg/dl (1.7-2.4); Potassium 4.1 mmol/L (3.5-5.1); Total Protein 7.4 gm/dl (6.0-8.3)
--- NOTE | 2023-12-12 12:14 | XRay Report ---
XR chest 1V portable CLINICAL HISTORY: Dyspnea TECHNIQUE: Single frontal radiograph of the chest was obtained. Comparison: Comparison is made to chest radiograph 10/07/2023 FINDINGS: No lines and tubes are seen. Cardiomegaly is noted. The aortic arch is calcified. Bilateral lower karla g predominant airspace opacities are seen. No evidence of pleural effusion or pneumothorax. IMPRESSION: Bilateral lower lung predominant airspace opacities which may represent atelectasis, pneumonia, and/o r aspiration. ACT 112: Negative or not required by law. Electronically signed by: Jorje Espinal M.D. 12/12/2023 12:11 PM
[2023-12-12 12:15] LABS: Troponin I High Sensitivity 8.8 pg/ml (0-20)
[2023-12-12 12:16] LABS: Partial Thromboplastin Ratio 0.8; Partial Thromboplastin Time 22 Seconds (21-31); Prothrombin Time 10.7 Seconds (9.0-12.0)
[2023-12-12 12:36] LABS: Adenovirus PCR Not Detected (NotDetected); Bordetella parapertussis PCR Not Detected (NotDetected); Bordetella pertussis PCR Not Detected (NotDetected); Chlamydia pneumoniae PCR Not Detected (NotDetected); Coronavirus 229E PCR Not Detected (NotDetected); Coronavirus CoV-2 (COVID19)PCR Not Detected (NotDetected); Coronavirus HKU1 PCR Not Detected (NotDetected); Coronavirus NL63 PCR Not Detected (NotDetected); Coronavirus OC43PCR Not Detected (NotDetected); Human Metapneumovirus PCR Not Detected (NotDetected); Influenza A PCR Not Detected (NotDetected); Influenza B PCR Not Detected (NotDetected); Mycoplasma pneumoniae PCR Not Detected (NotDetected); Parainfluenza Virus 1 PCR Not Detected (NotDetected); Parainfluenza Virus 2 PCR Not Detected (NotDetected); Parainfluenza Virus 3 PCR Not Detected (NotDetected); Parainfluenza Virus 4 PCR Not Detected (NotDetected); Respiratory Syncytial VirusPCR Not Detected (NotDetected); Rhinovirus/Enterovirus PCR Not Detected (NotDetected)
[2023-12-12] MEDS: OPTIRAY 320 125ml IV ONE (12:37)
--- NOTE | 2023-12-12 12:52 | CT Scan Report ---
CT angio chest PE protocol CLINICAL HISTORY: PE TECHNIQUE: Multidetector row helical CT of the chest was performed with angiographic protocol. Mcleod l and sagittal reformations were obtained. Coronal and sagittal MIPS were obtained from the axial lester a set and were submitted for review. Automated dose lowering techniques and/or adjustment according to patient size were utilized for this exam. CT DOSE: 843.83 mGy.cm Comparison: Comparison is made to CT chest 10/02/2023 FINDINGS: Exam is limited by patient motion. Lungs and pleura: Diffuse centrilobular emphysema is seen most prominent in the upper lobes. There is a 10 mm nodule in the right lower lobe (series 4 image 68). Atelectasis versus scarring is seen in t he lung bases. Heart and pericardium: Heart size is normal. No pericardial effusion. Vessels: No evidence of pulmonary embolism. Mediastinum and jonas: Unremarkable. Chest wall and lower neck: Small thyroid nodules are noted which do not require follow-up by ACR tiffanie valdez. Abdomen: Unremarkable. Bones: Degenerative changes in the thoracic spine. IMPRESSION: 1. No acute abnormality and in particular no evidence of pulmonary embolus. 2. Emphysema is seen. Exam is limited by patient motion however there is suggestion of a pulmonary n odule in the right lower lobe. ACT 112: Negative or not required by law. Electronically signed by: Jorje Espinal M.D. 12/12/2023 12:50 PM
[2023-12-12] MEDS: ALBUT/IPRATROP 3MG/0.5MG NEB 3 ML VIAL NEB STA (13:14)
--- NOTE | 2023-12-12 13:22 | History & Physical Report ---
Date of Service December 12, 2023 Assessment & Plan (1) Acute exacerbation of chronic obstructive pulmonary disease (COPD): Plan: Worsening DC x 2 days No leukocytosis; afebrile BioFire negative CXR with bilateral lower lung airspace opacities which may acute pneumonia vs atelectasis Chest CTA without pulmonary embolism Doxycycline 100 mg p.o. q12h Solu-Medrol 40 mg IV TID DuoNeb 3 mL Q6R Incentive spirometry, flutter valve Benzonatate as needed for cough Continue home inhalers (Spiriva and Dulera) or formulary equivalent A.m. CBC, BMP, mag (2) Chronic hypoxic respiratory failure: Plan: Patient is on supplemental oxygen 2L NC at baseline Non-hypoxic on arrival Continuous pulse oximetry Titrate supplemental oxygen to maintain SpO2 89-92% (3) Type 2 diabetes mellitus with microalbuminuria: Plan: Last A1c at 8.5% on 08/15/2023 Hold metformin Continue empagliflozin SSI with target BSG range 110-140mg/dL, CF 50 T2DM diet BSG ACHS Pharmacy glycemic management consult in the setting of steroid use TID Adjust regimen as needed (4) Leg edema: Plan: +1 pitting edema around the ankles bilaterally x 1 week Non-erythematous; non-tender to palpation; ?chronic venous stasis Given low suspicion for DVT, will defer doppler at this time; continue to monitor No hx of CHF, per patient Most recent echo in August 2023 showed LVEF 55-60% BNP ordered, pending ADRIANNE stockings (5) Hypothyroidism: Plan: Continue levothyroxine (6) CAD (coronary artery disease): Plan: Continue aspirin (7) Hypertension: Plan: Continue losartan (8) Orthostatic hypotension: Plan: Continue fludrocortisone 1/2 tab daily Plan Disposition: Obs - Admit to MedSurg telemetry DNR/DNI T2DM diet VTE PX: Lovenox 40 mg SQ q24h History of Present Illness Chief Complaint: SOB/Dyspnea Primary Care Provider: Kimberlee Syed MD Antonio is a pleasant 83-year-old male with PMH of COPD, chronic dyspnea, BPH, T2DM, CAD, hypothyroidism, and HLD. He presented via EMS for worsening SOB times dyspnea x 2 days with an acute exacerbation the morning of 12/11. Patient received IV Solu-Medrol and DuoNebs x 2 en route. Patient denies SOB at rest, but does note his DC has been worsening. SOB is worse when he lies flat on his back. He reports this feels like past episodes of COPD exacerbation; he is unsure what is triggered it in the past. He is on supplemental oxygen to L NC at baseline. No CPAP at night. No sick contacts. Patient reports good compliance with taking his breathing and his Dulera daily; he did use a nebulizer this morning, and reports that this usually helps. Patient took all of his regular morning medications today; no recent change in medications. Patient manages his own medicine at home. No syncope or falls. He denies PMH of DVT/PE or CHF. He does note that he has had fluid buildup around his ankles bilaterally x 1 week; left greater than right. No recent injuries to the ankles. He reports they have not been erythematous. He reports he does watch his salt intake; no recent change in diet. He is a former tobacco cigarette smoker but quit in August 2022; 23 PPD; he reportedly smoked for 60 years. He denies recent alcohol use or recreational drug use. No ambulatory assist devices at baseline. Patient is hypertensive at 151/96 and tachycardic at 104 bpm at time of admission; SpO2 94% on RA. ED Course: Duoneb 3mL NSS 500mL ROS: Patient endorses fatigue, lightheadedness with walking, worsening DC, intermittent wheezing, orthopnea, and lower extremity weakness and swelling around the ankles. Patient denies fever, chills, night-sweats, changes in weight, dizziness, falls, syncope, chest pain, pleuritic CP, SOB at rest, cough, hemoptysis, abdominal pain, N/V/D, change in urinary/bowel habits, burning with urination, blood in the urine/stool, or erythema/pain/numbness/tingling in the legs. Allergies Allergy/AdvReac Type Severity Reaction Status Date / Time No Known Drug Allergies Allergy Verified 11/04/23 08:49 Home Medications Medication Instructions Recorded Confirmed Type Oxygen Home #1 ea 05/19/22 11/04/23 Rx albuterol sulfate 90 mcg/actuation 2 inh inhalation QID PRN shortness 04/15/23 12/12/23 Rx aerosol inhaler of breath or wheezing #18 grams ipratropium 0.5 mg-albuterol 3 mg 3 ml inhalation Q4H PRN shortness 05/11/23 12/12/23 Rx (2.5 mg base)/3 mL nebulization of breath or wheezing #180 vials soln blood sugar diagnostic (OneTouch #200 ea 06/09/23 11/04/23 Rx Ultra Test strips) azelastine 137 mcg (0.1 %) nasal 1 spray intranasal BID #30 mL 07/02/23 12/12/23 Rx spray aerosol losartan 25 mg tablet 25 mg PO DAILY 07/04/23 12/12/23 History metformin 500 mg tablet,extended 1,000 mg PO BID 07/04/23 12/12/23 History release 24 hr aspirin 81 mg tablet,delayed 81 mg PO QAM 07/08/23 12/12/23 History release Oxygen Home #2 L 08/20/23 11/04/23 Rx levothyroxine 88 mcg tablet 88 mcg PO QAM #90 tabs 09/23/23 12/12/23 Rx mometasone-formoterol HFA 200 2 puff inhalation BID #13 grams 09/23/23 12/12/23 Rx mcg-5 mcg/actuation aerosol inhaler (Dulera) benzonatate 100 mg capsule 100 mg PO TID PRN cough #30 caps 10/09/23 12/12/23 Rx potassium chloride 20 mEq 20 meq PO DAILY #90 tabs 10/09/23 12/12/23 Rx tablet,extended release tiotropium bromide 2.5 2 puff inhalation DAILY #3 Inhalers 10/09/23 12/12/23 Rx mcg/actuation mist for inhalation (Spiriva Respimat) empagliflozin 25 mg tablet 25 mg PO QAM #90 tabs 10/21/23 12/12/23 Rx fludrocortisone 0.1 mg tablet 0.05 mg (1/2 x 0.1 mg) PO QAM #30 11/13/23 12/12/23 Rx tabs Past Med/Surg History Problem List (Updated 12/12/23 @ 18:36 by Shadi Artis PA-C) Orthostatic hypotension Tachycardia (Acute) COPD exacerbation (Acute) SOB (shortness of breath) (Acute) Leg edema Chronic hypoxic respiratory failure Acute exacerbation of chronic obstructive pulmonary disease (COPD) Loss of smell Hearing loss Inguinal hernia Acute respiratory failure with hypoxia Intra-abdominal hernia Elevated bilirubin CAD (coronary artery disease) Hypertension Actinic keratosis Chronic bronchitis Chronic obstructive pulmonary disease (Acute) Type 2 diabetes mellitus with microalbuminuria Urinary urgency BPH (benign prostatic hyperplasia) Diplopia Hyperlipidemia Urinary frequency Hypothyroidism Dysphagia Chronic sinusitis (Chronic) Chronic dyspnea (Chronic) Medical History Required emergent intubation Pneumonia COPD, severe Tobacco abuse Neck pain Abnormal chest CT Pneumonia Severe protein-calorie malnutrition Pneumonia Hypersomnolence COPD with emphysema inhalers daily/prn, nebulizer prn COPD (chronic obstructive pulmonary disease) case management patient Acquired deviated nasal septum Chronic gout Frequent PVCs Incidental lung nodule, > 3mm and < 8mm Tobacco use Chronic diarrhea Surgical History Hx of vasectomy History of colonoscopy last 2018 History of Mohs micrographic surgery for skin cancer x3 History of wisdom tooth extraction History of bilateral cataract extraction History of appendectomy age 11 History of tonsillectomy Family History Other No family history of adverse response to anesthesia No family history of bleeding disorder Denies family history of Ovarian cancer Prostate cancer Myocardial infarction Breast cancer Colorectal cancer Social History Smoking Status: Former smoker Tobacco Type: Cigarettes Age Started Using Tobacco: 21; Age Quit Using Tobacco: 82; packs per day: 2; Second Hand Exposure: No; Do You Dip or Chew Tobacco: No; Hx Alcohol Use: No Hx Substance Use: No Preferred Language: Bulgarian Communication Ability: Effective Visual Impairment: No Limitations Hearing Ability: Normal 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: No Beliefs That Will Affect Care: None marital status: Single Current Living Situation: Alone current occupational status: retired How many Children do You have: 1 Feels Safe at Home: Yes Dental Care, Regularly: Yes Physical Activity Frequency: 1-2 Times per Week Seatbelt Use: always Sunscreen Use: No Assistive Devices: Oxygen - Continuous Review of Systems Review of Systems: See HPI above Physical Exam Physical Exam: General: Mild respiratory distress; pleasant affect; non-toxic appearing; well- nourished; cooperative; SpO2 94% on 2 LNC HEENT: normocephalic, atraumatic; no scleral icterus; PERRLA; dry mucus membrane; vision and hearing grossly intact Neck: supple; no lymphadenopathy; trachea midline Skin: Purple bruising/hematoma on the right hand; warm, dry without signs of tenting; no cyanosis; no rashes, lesions, or erythema noted CV: chest wall NTP; RRR; S1/S2 normal; no murmurs/rubs/gallops; pulses intact and symmetric at radial, DP, and PT Lungs: Conversationally dyspneic; symmetrical chest wall expansion; bibasilar crackles in the lower lung holland, and expiratory wheezes worse on the right lung when compared to the left ABD: Soft, NTP; BS present; no rebound/guarding; no distention MSK: no tics or fasciculations; +1 pitting edema in the ankles bilaterally (left > right), nonerythematous Neuro: A&Ox3; normal mood and affect; fluent speech; no focal deficits; sensation grossly intact in the LEs b/l Results & Data Results & Data Vital Signs (Past 12 Hours) Vital Signs Temp Pulse Resp BP Pulse Ox O2 Del Method O2 Flow Rate 12/12/23 13:06 104 H 20 151/96 H 12/12/23 12:30 97 H 17 94 12/12/23 12:30 137/86 12/12/23 12:13 84 12/12/23 12:03 98 H 19 97 12/12/23 12:00 133/83 12/12/23 11:45 100 H 14 96 12/12/23 11:39 101 H 13 99 12/12/23 11:28 99 Room Air 12/12/23 11:27 99 H 18 99 12/12/23 11:24 20 12/12/23 11:24 Nasal Cannula 2 12/12/23 11:10 36.5 C 99 H 18 156/99 H 99 Non-rebreather 5 Laboratory Results Abnormal lab results 12/12/23 Range/Units 11:27 Neut # (Auto) 7.20 H (1.40-6.50) K/uL Motley # (Auto) 0.77 H (0.11-0.59) K/uL Glucose 176 H (70-99(Fasting)) mg/dl Diagnostic Findings Chest X-Ray 12/12/23 11:28 XR chest 1V portable CLINICAL HISTORY: Dyspnea TECHNIQUE: Single frontal radiograph of the chest was obtained. Comparison: Comparison is made to chest radiograph 10/07/2023 FINDINGS: No lines and tubes are seen. Cardiomegaly is noted. The aortic arch is calcif ied. Bilateral lower lung predominant airspace opacities are seen. No evidence of pleural effusion or pneumothorax. IMPRESSION: Bilateral lower lung predominant airspace opacities which may represent atelectasis, pneumonia, and/or aspiration. ACT 112: Negative or not required by law. Electronically signed by: Jorje Espinal M.D. 12/12/2023 12:11 PM Chest CTA 12/12/23 12:17 CT angio chest PE protocol CLINICAL HISTORY: PE TECHNIQUE: Multidetector row helical CT of the chest was performed with angiographic protocol. Coronal and sagittal reformations were obtained. Coronal and sagittal MIPS were obtained from the axial data set and were submitted for review. Automated dose lowering techniques and/or adjustment according to patient size were utilized for this exam. CT DOSE: 843.83 mGy.cm Comparison: Comparison is made to CT chest 10/02/2023 FINDINGS: Exam is limited by patient motion. Lungs and pleura: Diffuse centrilobular emphysema is seen most prominent in the upper lobes. There is a 10 mm nodule in the right lower lobe (series 4 image 68). Atelectasis versus scarring is seen in the lung bases. Heart and pericardium: Heart size is normal. No pericardial effusion. Vessels: No evidence of pulmonary embolism. Mediastinum and jonas: Unremarkable. Chest wall and lower neck: Small thyroid nodules are noted which do not require follow-up by ACR criteria. Abdomen: Unremarkable. Bones: Degenerative changes in the thoracic spine. IMPRESSION: 1. No acute abnormality and in particular no evidence of pulmonary embolus. 2. Emphysema is seen. Exam is limited by patient motion however there is suggestion of a pulmonary nodule in the right lower lobe. ACT 112: Negative or not required by law. Electronically signed by: Jorje Espinal M.D. 12/12/2023 12:50 PM ECG Additional Comments: ECG revealed sinus tachycardia with first-degree AV block and PACs with aberrant function at 103 bpm; QTc 500 Code Status & VTE Plan Code Status DNR/DNI VTE Prophylaxis Plan VTE Prophylaxis will be ordered: Yes Supervising Physician Co-Signing Physician Notes PA Supervision Note: I personally saw and examined the patient. I verified all armando points and agree with LISBETH Artis with the following exceptions and/or additions: S-Pt here with worsening SOB over the last week or so, no fevers/chills, no increased sputum production. No chest pains or nausea. History and ROS otherwise as above O- Vitals reviewed Gen: [AAOx3, mild tachypnea at rest with speaking in compete sentences] HEENT: [anicteric sclerae, EOMI] CV: [RRR no mgr nl S1S2] Pulm: [+diffuse wheezing, no rales or rhonchi] Abd: [+BS soft NT ND no masses] Ext: [trace edema of ankles bilat] Skin: [no rashes, warm/dry] Neuro: [full strength throughout] CBC, BMP, trop, magnesium reviewed CTA CHest, CXR reviewed A/P-83 yo male here with COPD exacerbation. Ruled out PE, PNA, no sepsis. Dc shave h/o PsA PNA. Plan as above plus check sputum culture if sample can be provided as doxy would not cover for that Also would consider weaning fludrocortisone to 0.05mg every other day BPs are elevated PG Care Time/CCT Total # of Minutes Spent Total Time Spent with Patient: Total time spent is greater than 50% in coordination of care (as documented) at patient's floor/unit and/or counseling patient: Coding [place] [address] INT INP/OBS CARE 2/55MIN Patient Type Established History Comprehensive Exam Comprehensive Medical Decision Making Moderate Complexity Diagnoses Acute exacerbation of chronic obstructive pulmonary disease (COPD) J44.1 Chronic hypoxic respiratory failure J96.11 Type 2 diabetes mellitus with microalbuminuria E11.29; R80.9 Leg edema R60.0 Hypothyroidism E03.9 CAD (coronary artery disease) I25.10 Hypertension I10 Orthostatic hypotension I95.1
--- NOTE | 2023-12-12 13:34 | Electrocardiogram Report ---
Test Reason : Blood Pressure : / mmHG Vent. Rate : 103 BPM Atrial Rate : 103 BPM P-R Int : 240 ms QRS Dur : 096 ms QT Int : 382 ms P-R-T Axes : 078 074 059 degrees QTc Int : 500 ms Sinus tachycardia with 1st degree A-V block with Premature ventricular complexes Diffuse Minor Nonspecific ST abnormality Abnormal ECG When compared with ECG of 07-OCT-2023 13:22, Premature ventricular complexes now present Nonspecific ST abnormality now present QT has lengthened Confirmed by Etienne Perez ([id number]) on 12/12/2023 1:33:50 PM Referred By: REFERRED SELF Confirmed By:Etienne Perez
[2023-12-12] MEDS ORDERED: GLUCOSE 10 TAB/TUBE PO PRN (15:42)
[2023-12-12] MEDS ORDERED: DEXTROSE 50% 50 ML SYRINGE IV PRN (15:42)
[2023-12-12] MEDS ORDERED: BENZONATATE 100 MG CAPSULE PO PRN (15:42)
[2023-12-12] MEDS ORDERED: CARBOHYDRATES FOR HYPOGLYCEMIA PO PRN (15:42)
[2023-12-12] MEDS ORDERED: PHARMACY GLYCEMIC MGMT CONSULT PRN (15:42)
[2023-12-12] MEDS ORDERED: GLUCAGON FOR INJ 1 MG VIAL SQ PRN (15:42)
[2023-12-12] MEDS ORDERED: ACETAMINOPHEN 325 MG TAB PO PRN (15:42)
[2023-12-12] MEDS ORDERED: GLUCOSE 40% GEL 15 GM TUBE PO PRN (15:42)
[2023-12-12] MEDS: methylPREDNISolone 40 MG in SYRINGE 0 ML IV SCH (16:45)
[2023-12-12] MEDS: DOXYCYCLINE HYCLATE 100 MG CAP PO STA (16:45)
[2023-12-12] MEDS: INSULIN ASPART PER UNIT CHARGE SC SCH (17:43)
[2023-12-12] MEDS: MAGNESIUM SULFATE / D5W 1 GM/100 ML BAG IV ONE (18:17)
[2023-12-12] MEDS: ALBUT/IPRATROP 3MG/0.5MG NEB 3 ML VIAL INH SCH (19:33)
[2023-12-12] MEDS: AZELASTINE HCL 0.1% NASAL 200 SPRAYS/27,400 MCG BTL SCH (20:22)
[2023-12-12] MEDS: ENOXAPARIN INJ 40 MG/0.4 ML SYR SQ SCH (20:22)
[2023-12-12] MEDS: LANTUS PER UNIT CHARGE SC SCH (22:53)
[2023-12-13] MEDS: INSULIN ASPART PER UNIT CHARGE SC SCH ×2 (03:04→09:55)
[2023-12-13] MEDS: LEVOTHYROXINE SODIUM 88 MCG TABLET PO SCH (06:13)
[2023-12-13 08:12] LABS: Basophils # (auto) 0.01 K/uL (0.00-0.20); Basophils % (auto) 0.1 %; Hematocrit (blood only) 47.2 % (42.0-52.0); Hemoglobin 15.3 g/dl (14.0-18.0); Immature Granulocytes # (auto) 0.05 K/uL (0.01-0.20); Immature Granulocytes % (auto) 0.4 %; Lymphocytes # (auto) 0.73 K/uL (1.20-3.40); Mean Corpuscular Hemoglobin 28.8 pg (25.0-34.0); Mean Corpuscular Hgb Conc 32.4 g/dL (32.0-36.0); Mean Corpuscular Volume 88.9 fL (80.0-100.0); Mean Platelet Volume 10.8 fL (9.4-12.4); Monocytes # (auto) 0.78 K/uL (0.11-0.59); Monocytes % (auto) 6.4 %; Neutrophils # (auto) 10.59 K/uL (1.40-6.50); Neutrophils % (auto) 87.1 %; Platelet Count 280 K/uL (130-400); RDW Coefficient of Variation 13.4 % (11.5-14.5); RDW Standard Deviation 43.7 fL (36.4-46.3); Red Blood Count 5.31 M/uL (4.70-6.10); White Blood Count 12.16 K/ul (4.8-10.8)
[2023-12-13 08:32] LABS: Estimated Average Glucose 180 mg/dl; Hemoglobin A1C 7.9 % (4.5-5.6)
[2023-12-13 08:36] LABS: BUN Creatinine Ratio 28.8 (10-20); Calcium 9.4 mg/dl (8.6-10.3); Creatinine Clr Calc Pharmacy 88.3 ml/min; Est GFR (African American) 104.4 ml/min; Potassium 3.8 mmol/L (3.5-5.1)
[2023-12-13] MEDS: LOSARTAN POTASSIUM 25 MG TAB PO SCH (08:58)
[2023-12-13] MEDS: FLUDROCORTISONE ACETATE 0.1 MG TAB PO SCH (08:59)
[2023-12-13] MEDS: POTASSIUM CHLORIDE CRTAB 20 MEQ TABCR PO SCH (08:59)
[2023-12-13] MEDS: ASPIRIN 81 MG ECTAB PO SCH (08:59)
[2023-12-13] MEDS: FLUTICASONE/VILANTEROL 100/25MCG 14 PUFFS/INHALER INH SCH (09:00)
[2023-12-13] MEDS ORDERED: EMPAGLIFLOZIN 25 MG TAB PO SCH (09:00)
[2023-12-13] MEDS ORDERED: LANTUS PER UNIT CHARGE SC SCH (09:00)
[2023-12-13] MEDS: UMECLIDINIUM BROMIDE 62.5MCG/BLISTER 7 PUFFS/INHALER INH SCH (09:00)
[2023-12-13] MEDS ORDERED: Nursing to Pharmacy Communication SCH (09:15)
[2023-12-13] MEDS: DOXYCYCLINE HYCLATE 100 MG CAP PO SCH (09:56)
--- NOTE | 2023-12-13 11:18 | Pharmacy Report ---
Pharmacy Glycemic Short Note 2 - Date of Service December 13, 2023 - Glycemic Short BSG Results (Last 24 hours): 12/12/23 12/12/23 12/12/23 11:27 17:19 20:26 Glucose 176 H POC Glucose 194 H 203 H 12/13/23 12/13/23 12/13/23 02:24 07:12 08:26 Glucose 120 H POC Glucose 154 H 117 H OUTPATIENT ANTIDIABETIC REGIMEN: * Metformin 1 g PO BIDM * Empagliflozin 25 mg PO daily HbA1c: 7.9% (12/13/23) ASSESSMENT: * LALA is an 83 year old male admitted on 12/12/23 w/ acute COPD exacerbation * Receiving IV methylprednisolone 40 mg TID * Blood sugars elevated on presentation and continued throughout the evening * Received 20 units of Lantus last evening * Fasting blood sugar of 117 mg/dL today * Reasonable HbA1c on oral antidiabetic agents only for age > 80 years old PLAN FOR INPATIENT GLYCEMIC CONTROL: * Hold outpatient oral diabetes medications * Basal insulin * Lantus 5-15-20 units SC HS (see EHR for details) * Bolus insulin * NovoLog per scale ACHS or Q6hrs while NPO * Goal Range: Low 110 mg/dL - High 140 mg/dL * Correction Factor: 20 mg/dL/unit * Nutritional / Prandial insulin per carb ratio of 1 unit per 6 grams CHO consumed
--- NOTE | 2023-12-13 15:22 | Hospitalist Progress Note ---
Date of Service December 13, 2023 Assessment & Plan (1) Acute exacerbation of chronic obstructive pulmonary disease (COPD): Plan: P/w worsening BETTS x 2 days, cough, No leukocytosis, afebrile BioFire negative, CXR with bilateral lower lung airspace opacities which may acute pneumonia vs atelectasis but CTA Chest negative Does have a previous h/o Pseudomonas PNA and resp failure requiring intubation and mech ventilation earlier this year Remains on home 2LNC and respiratory distress improving COntinue IV steroids, doxycycline Continue DuoNeb 3 mL Q6R, Incentive spirometry, flutter valve Benzonatate as needed for cough Continue home inhalers (Spiriva and Dulera) or formulary equivalent Of note, is slowly weaning off fludrocortisone after being placed on this for relative adrenal insufficency during critical illness several months ago- recommend continued weaning off this as his BPs are actuallly elevated Check sputum sample if able (2) Chronic hypoxic respiratory failure: Plan: Patient is on supplemental oxygen 2L NC at baseline Titrate supplemental oxygen to maintain SpO2 89-92% May need 2 step prior to discharge to reassess home O2 needs (3) Type 2 diabetes mellitus with microalbuminuria: Plan: Hgb A1c at 7.9%, fairly well controlled for age Hold metformin and Jardiance from home Pharmacy managing insulin while on steroids (4) Leg edema: Plan: +1 pitting edema around the ankles bilaterally x 1 week, occurs intermittently, No hx of CHF, per patient Most recent echo in August 2023 showed LVEF 55-60% BNP normal Now resolved w/ elevating legs (5) Hypothyroidism: Plan: Continue levothyroxine recent TSH normal (6) CAD (coronary artery disease): Plan: Noted to have coronary artery calcifications on CT Continue aspirin, but was previously on a statin and now no longer on med list? Will resume atorvastatin 20mg daily (7) Hypertension: Plan: BPs better controlled todya continue losartan (8) Orthostatic hypotension: Plan: Was placed on this for relative adrenal insufficiency during critical illness earlier this year Continue fludrocortisone 1/2 tab daily and continue to wean off Plan Disposition: continued stay, possible dc to home in 1-2 days when dyspnea improved VTE PX: Lovenox 40 mg SQ q24h Admission and Anticipated Discharge Date Admission Date: December 12, 2023 Subjective Pt feeling a little better today, less SOB. Not producing sputum to give a sample. Has a good appetite, no diarrhea or constipation.Did ambulate a bit in halls with PT Tele with 1st degree AVB, rates 70-90s Physical Exam Constitutional: WD/WN, vitals as above Respiratory: normal respiratory effort; no cough Auscultation: + wheezes; no crackles and no rhonchi Cardiovascular: RRR, no murmur, no edema Gastrointestinal (Abdomen): normal bowel sounds, soft, nontender, no hepatosplenomegaly Psychiatric: A+Ox3, euthymic affect Results & Data Results & Data Vital Signs (Past 12 Hours) Vital Signs Temp Pulse Pulse Resp BP Pulse Ox O2 Del Method 12/13/23 14:10 74 12/13/23 13:34 74 16 93 Nasal Cannula 12/13/23 11:54 36.6 C 71 16 123/74 95 Nasal Cannula 12/13/23 10:11 93 12/13/23 09:00 Nasal Cannula 12/13/23 08:39 36.4 C L 69 16 133/73 94 Nasal Cannula 12/13/23 07:44 77 12/13/23 07:14 80 18 92 Nasal Cannula 12/13/23 04:00 36.5 C 76 18 123/80 95 Room Air O2 Flow Rate 12/13/23 14:10 12/13/23 13:34 1 12/13/23 11:54 2 12/13/23 10:11 12/13/23 09:00 2 12/13/23 08:39 4 12/13/23 07:44 12/13/23 07:14 2 12/13/23 04:00 Laboratory Results CBC, BMP, magnesium , HgbA1C reviewed PG Care Time/CCT Total # of Minutes Spent Total Time Spent with Patient: Total time spent is greater than 50% in coordination of care (as documented) at patient's floor/unit and/or counseling patient: Coding Level of Care Code 36560 SUB INP/OBS CARE 2/35MIN Diagnoses Acute exacerbation of chronic obstructive pulmonary disease (COPD) J44.1 Chronic hypoxic respiratory failure J96.11 Type 2 diabetes mellitus with microalbuminuria E11.29; R80.9 Leg edema R60.0 Hypothyroidism E03.9 CAD (coronary artery disease) I25.10 Hypertension I10 Orthostatic hypotension I95.1
[2023-12-13] MEDS: LANTUS PER UNIT CHARGE SC SCH (20:49)
[2023-12-14] MEDS: LANTUS PER UNIT CHARGE SC SCH (09:13)
[2023-12-14 09:23] LABS: Calcium 9.3 mg/dl (8.6-10.3); Creatinine Clr Calc Pharmacy 79.8 ml/min; Est GFR (African American) 100.1 ml/min; Est GFR (Non-African American) 86.4 ml/min; Potassium 3.8 mmol/L (3.5-5.1)
[2023-12-14] MEDS ORDERED: COUGH DROP (SUGAR FREE) LOZ 24 LOZ/1 BOX BUCCAL PRN (11:00)
--- NOTE | 2023-12-14 11:21 | Discharge Summary ---
Date of Service December 14, 2023 Admission HPI Per Admitting Provider Antonio is a pleasant 83-year-old male with PMH of COPD, chronic dyspnea, BPH, T2DM, CAD, hypothyroidism, and HLD. He presented via EMS for worsening SOB times dyspnea x 2 days with an acute exacerbation the morning of 12/11. Patient received IV Solu-Medrol and DuoNebs x 2 en route. Patient denies SOB at rest, but does note his BETTS has been worsening. SOB is worse when he lies flat on his back. He reports this feels like past episodes of COPD exacerbation; he is unsure what is triggered it in the past. He is on supplemental oxygen to L NC at baseline. No CPAP at night. No sick contacts. Patient reports good compliance with taking his breathing and his Dulera daily; he did use a nebulizer this morning, and reports that this usually helps. Patient took all of his regular morning medications today; no recent change in medications. Patient manages his own medicine at home. No syncope or falls. He denies PMH of DVT/PE or CHF. He does note that he has had fluid buildup around his ankles bilaterally x 1 week; left greater than right. No recent injuries to the ankles. He reports they have not been erythematous. He reports he does watch his salt intake; no recent change in diet. He is a former tobacco cigarette smoker but quit in August 2022; 23 PPD; he reportedly smoked for 60 years. He denies recent alcohol use or recreational drug use. No ambulatory assist devices at baseline. Patient is hypertensive at 151/96 and tachycardic at 104 bpm at time of admission; SpO2 94% on RA. ED Course: Duoneb 3mL NSS 500mL ROS: Patient endorses fatigue, lightheadedness with walking, worsening BETTS, intermittent wheezing, orthopnea, and lower extremity weakness and swelling around the ankles. Patient denies fever, chills, night-sweats, changes in weight, dizziness, falls, syncope, chest pain, pleuritic CP, SOB at rest, cough, hemoptysis, abdominal pain, N/V/D, change in urinary/bowel habits, burning with urination, blood in the urine/stool, or erythema/pain/numbness/tingling in the legs. Principal Diagnosis COPD exacerbation Discharge Exam General: Mild respiratory distress; pleasant affect; HEENT: normocephalic, atraumatic; no scleral icterus; PERRLA; dry mucus membrane; vision and hearing grossly intact Neck: supple; no lymphadenopathy; trachea midline CV: chest wall NTP; RRR; S1/S2 normal; Lungs: clear ABD: Soft, NTP; BS present; no rebound/guarding; no distention Neuro: A&Ox3; Discharge Data Allergies Allergy/AdvReac Type Severity Reaction Status Date / Time No Known Drug Allergies Allergy Verified 11/04/23 08:49 Consultations 12/12/23 13:24 ED Decision to Admit Stat Ordered Studies 12/12/23 12:17 CT angio chest PE protocol Stat Hospital Course (1) Acute exacerbation of chronic obstructive pulmonary disease (COPD): P/w worsening BETTS x 2 days, cough, No leukocytosis, afebrile BioFire negative, CXR with bilateral lower lung airspace opacities which may acute pneumonia vs atelectasis but CTA Chest negative Does have a previous h/o Pseudomonas PNA and resp failure requiring intubation and mech ventilation earlier this year Remains on home 2LNC and respiratory distress improved, back to baseline. Patient is agreeable to discharge Placed on steroid taper While in house: patient was treated with IV steroids, doxycycline Continue DuoNeb 3 mL Q6R, Incentive spirometry, flutter valve Benzonatate as needed for cough home inhalers (Spiriva and Dulera) or formulary equivalent Of note, is slowly weaning off fludrocortisone after being placed on this for relative adrenal insufficency during critical illness several months ago- recommend continued weaning off this as his BPs are actuallly elevated; will defer to PCP (2) Chronic hypoxic respiratory failure: Patient is on supplemental oxygen 2L NC at baseline (3) Type 2 diabetes mellitus with microalbuminuria: Hgb A1c at 7.9%, fairly well controlled for age Hold metformin and Jardiance from home Pharmacy managing insulin while on steroids (4) Leg edema: +1 pitting edema around the ankles bilaterally x 1 week, occurs intermittently, No hx of CHF, per patient Most recent echo in August 2023 showed LVEF 55-60% BNP normal Now resolved w/ elevating legs (5) Hypothyroidism: Continue levothyroxine recent TSH normal (6) CAD (coronary artery disease): Noted to have coronary artery calcifications on CT Continue aspirin, but was previously on a statin and now no longer on med list? Will resume atorvastatin 20mg daily (7) Hypertension: BPs better controlled todya continue losartan (8) Orthostatic hypotension: Was placed on this for relative adrenal insufficiency during critical illness earlier this year Continue fludrocortisone 1/2 tab daily and continue to wean off Total Time Total Time Spent Total Time Spent (In Minutes): 32 Discharge Plan Discharge Items Patient Disposition: Home - Self-Care Reason For Visit: SOB/DYSPNEA Discharge Diagnosis: SOB Condition on Discharge: Fair Activity: Resume your previous activity Non-emergency contact: Primary Care Provider Call non-emergency contact if: you have any medication questions Follow-up/Referrals: Kimberlee Syed MD [Primary Care Provider] - 12/24/23 10:30 am Diet: Carb Consistent or DM2 Addtl Attending Provider Instructions: Recommend to resume home oxygen. Please start antibiotics tonight. Start prednisone taper tomorrow morning. Recommend followup with PCP in 1-2 week. Pending Studies at Discharge: No Stand-Alone Forms: My [facility] Intern [place], Smoking Cessation Medications and DC Order Prescriptions: New doxycycline hyclate 100 mg Capsule 100 mg PO BID Qty: 7 0RF Rx Instructions: first dose will be tonight prednisone 10 mg tablet 10 mg PO DAILY Qty: 20 0RF Rx Instructions: Take 4 tablets once a day for 2 days then 3 tablets once a day for 2 days then 2 tablets for 2 days then 1 tablet for 2 days Continued albuterol sulfate 90 mcg/actuation HFA aerosol inhaler 2 inh inhalation QID PRN (Reason: shortness of breath or wheezing) Qty: 18 3RF Hold Instructions: Resume on 09/03/23. ipratropium-albuterol 0.5 mg-3 mg(2.5 mg base)/3 mL solution for nebulization 3 ml inhalation Q4H PRN (Reason: shortness of breath or wheezing) Qty: 180 3RF azelastine 137 mcg (0.1 %) aerosol,spray 1 spray intranasal BID Qty: 30 3RF Rx Instructions: administer into each nostril empagliflozin 25 mg tablet 25 mg PO QAM Qty: 90 3RF fludrocortisone 0.1 mg tablet 0.05 mg PO QAM Qty: 30 3RF (DME) [employer] Ultra Test Strip See Rx Instructions .Route Qty: 200 3RF Rx Instructions: Test Twice per day as needed aspirin 81 mg tablet,delayed release (DR/EC) 81 mg PO QAM levothyroxine 88 mcg tablet 88 mcg PO QAM Qty: 90 3RF Dulera 200-5 mcg/actuation HFA aerosol inhaler 2 puff inhalation BID Qty: 13 3RF potassium chloride 20 mEq tablet extended release 20 meq PO DAILY Qty: 90 1RF Spiriva Respimat 2.5 mcg/actuation mist 2 puff inhalation DAILY Qty: 3 3RF benzonatate 100 mg capsule 100 mg PO TID PRN (Reason: cough) Qty: 30 1RF losartan 25 mg tablet 25 mg PO DAILY metformin 500 mg tablet extended release 24 hr 1,000 mg PO BID (DME) Oxygen Home Liters Per Minute See Rx Instructions .ROUTE .MEDSUPPLY Qty: 1 0RF Rx Instructions: 2 liters with activity/ambulation. (DME) Oxygen Home Liters Per Minute See Rx Instructions .Route Qty: 2 0RF Rx Instructions: As directed Discharge Orders: Discharge Order (Routine); Ordered 12/14/23 Ordered By: Lobo Sandoval/Other Patient Handouts: Managing Type 2 Diabetes Admission Data Admit Date/Time: 12/12/23 13:46 Attending Provider: Lobo Pereyra Admit Provider: Beatriz Holder Primary Care Provider: Kimberlee Syed Other Interventions: Discharge Summary Assessment (RN) Last Done: 12/14/23 11:33 Coding Level of Care Code 30797 INP/OBS DISCH >30 MIN Diagnoses Acute exacerbation of chronic obstructive pulmonary disease (COPD) J44.1 Chronic hypoxic respiratory failure J96.11 Type 2 diabetes mellitus with microalbuminuria E11.29; R80.9 Leg edema R60.0 Hypothyroidism E03.9 CAD (coronary artery disease) I25.10 Hypertension I10 Orthostatic hypotension I95.1
[2023-12-14] MEDS ORDERED: FIRST - Mouthwash BLM 119 ML PO SCH (13:00)
[2023-12-14] MEDS ORDERED: LANTUS PER UNIT CHARGE SC SCH (21:00)
== END 2023-12-14 13:47 | disposition home or self-care (01) ==
LOC: SUATTDRO → 2N 11:19 → ED 11:19 → SUATTDRO 13:46 → 2N 15:04
DX: J44.1 Chronic obstructive pulmonary disease with (acute) exacerbation; Z79.84 Long term (current) use of oral hypoglycemic drugs; I25.10 Atherosclerotic heart disease of native coronary artery without angina pectoris; I95.1 Orthostatic hypotension; Z79.82 Long term (current) use of aspirin; I10 Essential (primary) hypertension; R60.0 Localized edema; E03.9 Hypothyroidism, unspecified; E11.29 Type 2 diabetes mellitus with other diabetic kidney complication; Z79.890 Hormone replacement therapy; Z79.899 Other long term (current) drug therapy; R80.9 Proteinuria, unspecified; J96.11 Chronic respiratory failure with hypoxia; Z87.891 Personal history of nicotine dependence

== ENCOUNTER 2024-01-05 11:21 | Inpatient (IN) ==
--- NOTE | 2024-01-05 12:09 | Emergency Department Note ---
History of Present Illness General Chief complaint: Fall Stated complaint: FALL, PAIN Time Seen by Provider: 01/05/24 11:57 History of Present Illness Maximum Pain Intensity: 9 This is an 83-year-old male that presents to the emergency department via private vehicle with complaints of "fall yesterday". The patient notes that yesterday he was at the door and when he opened up the door he is not sure if he had a seizure or what happened but he notes that his body was "jumping all over" and he ended up about 15 feet from where he started walking when he opened up the door. He does not recall much of the event. No anticoagulant use. He states that he was seen here yesterday for evaluation of injuries from that fall. He notes left orbital floor fracture but essentially no pain at that area. No headache. However, he returns today noting worsening left-sided rib and flank pain status post the fall yesterday. No new falls since his evaluation yesterday. The patient denies any speech trouble. Patient does note some discomfort when he moves that left arm particular in the left scapular area. Patient is not taking full deep breaths because of the pain in his left scapular region. Home Medications Medication Instructions Recorded Confirmed Type Oxygen Home #1 ea 05/19/22 11/04/23 Rx albuterol sulfate 90 mcg/actuation 2 inh inhalation QID PRN shortness 04/15/23 01/05/24 Rx aerosol inhaler of breath or wheezing #18 grams blood sugar diagnostic (OneTouch #200 ea 06/09/23 11/04/23 Rx Ultra Test strips) azelastine 137 mcg (0.1 %) nasal 1 spray intranasal BID #30 mL 07/02/23 01/05/24 Rx spray losartan 25 mg tablet 25 mg PO DAILY 07/04/23 01/05/24 History metformin 500 mg tablet,extended 1,000 mg PO BID 07/04/23 01/05/24 History release 24 hr aspirin 81 mg tablet,delayed 81 mg PO QAM 07/08/23 01/05/24 History release Oxygen Home #2 L 08/20/23 11/04/23 Rx levothyroxine 88 mcg tablet 88 mcg PO QAM #90 tabs 09/23/23 01/05/24 Rx mometasone-formoterol HFA 200 2 puff inhalation BID #13 grams 09/23/23 01/05/24 Rx mcg-5 mcg/actuation aerosol inhaler (Dulera) benzonatate 100 mg capsule 100 mg PO TID PRN cough #30 caps 10/09/23 01/05/24 Rx potassium chloride 20 mEq 20 meq PO DAILY #90 tabs 10/09/23 01/05/24 Rx tablet,extended release tiotropium bromide 2.5 2 puff inhalation DAILY #3 Inhalers 10/09/23 01/05/24 Rx mcg/actuation mist for inhalation (Spiriva Respimat) empagliflozin 25 mg tablet 25 mg PO QAM #90 tabs 10/21/23 01/05/24 Rx atorvastatin 20 mg tablet 20 mg PO QAM #90 tabs 12/29/23 01/05/24 Rx ipratropium 0.5 mg-albuterol 3 mg 3 ml inhalation Q4H PRN shortness 12/29/23 01/05/24 Rx (2.5 mg base)/3 mL nebulization of breath or wheezing #180 vials soln amoxicillin 875 mg-potassium 1 tab PO BID 7 days #13 tabs 01/04/24 01/05/24 Rx clavulanate 125 mg tablet Allergies Allergy/AdvReac Type Severity Reaction Status Date / Time No Known Allergies Allergy Verified 01/05/24 15:15 Past Med/Surg History Problem List (Updated 01/05/24 @ 16:55 by Atilio Zhao PA-C) Abnormal chest CT (Acute) Left-sided chest wall pain (Acute) Fall (Acute) Fracture of orbital floor (Acute) Chronic hypoxic respiratory failure Hearing loss Inguinal hernia CAD (coronary artery disease) Hypertension Chronic bronchitis Chronic obstructive pulmonary disease (Acute) Type 2 diabetes mellitus with microalbuminuria Urinary urgency BPH (benign prostatic hyperplasia) Hyperlipidemia Urinary frequency Hypothyroidism Chronic sinusitis (Chronic) Chronic dyspnea (Chronic) Medical History Diplopia Dysphagia Actinic keratosis Required emergent intubation Pneumonia COPD, severe Tobacco abuse Neck pain Abnormal chest CT Pneumonia Severe protein-calorie malnutrition Pneumonia Hypersomnolence COPD with emphysema inhalers daily/prn, nebulizer prn COPD (chronic obstructive pulmonary disease) case management patient Acquired deviated nasal septum Chronic gout Frequent PVCs Incidental lung nodule, > 3mm and < 8mm Tobacco use Chronic diarrhea Surgical History Hx of vasectomy History of colonoscopy last 2019 History of Mohs micrographic surgery for skin cancer x3 History of wisdom tooth extraction History of bilateral cataract extraction History of appendectomy age 11 History of tonsillectomy Family History Other No family history of adverse response to anesthesia No family history of bleeding disorder Denies family history of Ovarian cancer Prostate cancer Myocardial infarction Breast cancer Colorectal cancer Social History Smoking Status: Never smoker Tobacco Type: Cigarettes Age Started Using Tobacco: 21; Age Quit Using Tobacco: 82; packs per day: 2; Second Hand Exposure: No; Do You Dip or Chew Tobacco: No; Hx Alcohol Use: No Hx Substance Use: No Preferred Language: Maltese Communication Ability: Effective Visual Impairment: No Limitations Hearing Ability: Normal Transfer Station Attendant Required: No Beliefs That Will Affect Care: None marital status: Single Current Living Situation: Alone current occupational status: retired How many Children do You have: 1 Feels Safe at Home: Yes Dental Care, Regularly: Yes Physical Activity Frequency: 1-2 Times per Week Seatbelt Use: always Sunscreen Use: No Assistive Devices: Nebulizer and Oxygen - Continuous Review of Systems A total of 10 systems reviewed and were otherwise negative Physical Exam Vital Signs Vital Signs - 24 hr 01/05/24 11:31 01/05/24 12:29 01/05/24 12:55 Temperature 36.5 C Temperature Source Temporal Artery Scan Pulse Rate 87 69 Pulse Rate [Right Finger] Respiratory Rate 20 Respiratory Effort / Characteristics Non-Labored Spontaneous Respiratory Depth Normal Respiratory Pattern Blood Pressure 154/91 H Blood Pressure [Right Arm] Blood Pressure Mean 112 Blood Pressure Mean [Right Arm] Blood Pressure Position [Right Arm] Pulse Oximetry 91 Oxygen Delivery Method Room Air Room Air Oxygen Flow Rate 2 Sepsis Recent Fever Within 48 Hours No Sepsis New/Unexplained Change in Mental Status No Sepsis Action Taken by Nursing No Action Required 01/05/24 14:46 01/05/24 16:00 Temperature Temperature Source Pulse Rate Pulse Rate [Right Finger] 76 76 Respiratory Rate 16 18 Respiratory Effort / Characteristics Non-Labored Spontaneous Non-Labored Spontaneous Respiratory Depth Normal Normal Respiratory Pattern Regular Blood Pressure Blood Pressure [Right Arm] 151/98 H 136/78 Blood Pressure Mean Blood Pressure Mean [Right Arm] 115 97 Blood Pressure Position [Right Arm] Lying Pulse Oximetry 96 96 Oxygen Delivery Method Nasal Cannula Nasal Cannula Oxygen Flow Rate 2 Sepsis Recent Fever Within 48 Hours Sepsis New/Unexplained Change in Mental Status Sepsis Action Taken by Nursing VITAL SIGNS - Vital signs and nursing notes were reviewed. Stable and afebrile. GENERAL -83-year-old male appearing his stated age. Communicates well with provider and answers questions appropriately. SKIN - Gross examination of the entire body surface demonstrates no lacerations to the body surface. There is ecchymosis seen to the dorsal left hand region. HEAD - Normocephalic. Left infraorbital edema and ecchymosis consistent with known orbital floor fracture. No open injury. No greco signs. EYES - PERRL with EOMI bilaterally. EARS - No deformities of external structures noted on gross examination bilaterally. NOSE - Midline and without cyanosis. MOUTH/OROPHARYNX - Without perioral cyanosis. Tongue midline with equal elevation of palate bilaterally. No blood noted in the oropharynx. No tonsillar hypertrophy, erythema, or exudates noted. No dental fractures noted. NECK - No tenderness to palpation over the cervical spinous processes. No cervical paraspinal muscle tenderness noted. LUNGS - Chest wall symmetric without accessory muscle use, intercostals retractions, or central cyanosis. No flail chest or depressed fractures noted. No paradoxical chest wall movements noted. No tenderness to palpation across the anterior and posterior chest viramontes. No tenderness with deep inspiration noted against the examiner's applied pressure to the lateral chest viramontes. Normal vesicular breath sounds CTA B/L. No wheezes, rales, or rhonchi appreciated. CARDIAC - RRR ABDOMEN - Abdominal contour normal and without pulsations or visible masses. BS normoactive all four quadrants. No rebound tenderness or guarding noted. Negative [place]'s or [place]on Nguyen's Signs. No tenderness, palpable masses, hepatosplenomegaly, or ascites noted. EXTREMITIES - No gross deformities noted of the extremities. Mild ecchymosis to the dorsal left hand without tenderness. There is however tenderness to the left posterior scapular region. +5/5 strength noted in UE/LE bilaterally. NEUROLOGIC - Cranial nerves grossly intact. PSYCH -alert, oriented and pleasant on exam Course Administered Medications Discontinued Medications Acetaminophen (Acetaminophen 500 Mg Tab) 500 mg PO NOW STA Stop: 01/05/24 14:31 Last Admin: 01/05/24 15:21 Dose: 500 mg Documented By: CC Piperacillin Sod/Tazobactam Sod (Zosyn) 4.5 gm in 100 mls @ 200 mls/hr IV NOW ONE Stop: 01/05/24 15:09 Last Infusion: 01/05/24 15:55 Dose: Infused Documented By: Admin: 01/05/24 15:21 Dose: 200 mls/hr Documented By: CC Ioversol (Optiray 320 100ml) 93 ml IV ONCE ONE Stop: 01/05/24 13:22 Last Admin: 01/05/24 13:21 Dose: 93 ml Documented By: ERLIN Lidocaine (Lidocaine 5% 1 Patch) 1 patch TD NOW STA Stop: 01/05/24 14:31 Last Admin: 01/05/24 15:21 Dose: 1 patch Documented By: SANA Medical Decision Making Laboratory Data 01/05/24 12:07 01/05/24 12:07 Lab Results 01/05/24 Range/Units 12:07 WBC 13.67 H (4.8-10.8) K/ul RBC 5.75 (4.70-6.10) M/uL Hgb 16.9 (14.0-18.0) g/dl Hct 50.8 (42.0-52.0) % MCV 88.3 (80.0-100.0) fL MCH 29.4 (25.0-34.0) pg MCHC 33.3 (32.0-36.0) g/dL RDW Std Deviation 43.7 (36.4-46.3) fL RDW Coeff of Samantha 13.5 (11.5-14.5) % Plt Count 226 (130-400) K/uL MPV 10.2 (9.4-12.4) fL Immature Gran % (Auto) 1.6 % Neut % (Auto) 87.2 % Lymph % (Auto) 5.5 % Sebastian % (Auto) 5.0 % Eos % (Auto) 0.2 % Baso % (Auto) 0.5 % Neut # (Auto) 11.92 H (1.40-6.50) K/uL Lymph # (Auto) 0.75 L (1.20-3.40) K/uL Sebastian # (Auto) 0.68 H (0.11-0.59) K/uL Eos # (Auto) 0.03 (0.00-0.50) K/uL Baso # (Auto) 0.07 (0.00-0.20) K/uL Immature Gran # (Auto) 0.22 H (0.01-0.20) K/uL PT 10.6 (9.0-12.0) Seconds INR 1.0 (0.9-1.1) APTT 25 (21-31) Seconds PTT Ratio 0.9 Sodium 139 (136-145) mmol/L Potassium 4.5 (3.5-5.1) mmol/L Chloride 103 (98-107) mmol/L Carbon Dioxide 26 (21-32) mmol/L Anion Gap 10 (3-11) BUN 18 (6-23) mg/dl Creatinine 0.69 (0.6-1.4) mg/dl Est Cr Clr Drug Dosing 79.9 ml/min Est GFR ( Amer) 102.5 ml/min Est GFR (Non-Af Amer) 88.4 ml/min BUN/Creatinine Ratio 26.1 H (10-20) Glucose 113 H (70-99(Fasting)) mg/dl Calcium 9.7 (8.6-10.3) mg/dl Total Bilirubin 1.2 H (0.2-1.0) mg/dl AST 17 (13-39) U/L ALT 14 (7-52) U/L Alkaline Phosphatase 62 (34-104) U/L Total Protein 7.3 (6.0-8.3) gm/dl Albumin 4.7 (3.4-5.0) gm/dl Globulin 2.6 (2.5-4.0) gm/dl Albumin/Globulin Ratio 1.8 (0.9-2) Imaging Data Radiologist's Impression: Abdomen/Pelvis CT 01/05/24 12:06 CT abd pelvis IV con only CLINICAL HISTORY: Fall yesterday, upper back/L rib/L flank pain TECHNIQUE: Helical axial images of the abdomen and pelvis were obtained and displayed. Automated dose lowering techniques and/or adjustment according to patient size were utilized for this exam. This exam was performed with intravenous contrast. COMPARISON: Comparison is made to CT abdomen pelvis 10/07/2023 FINDINGS: Lower chest: Emphysema and bronchial wall thickening is seen. Liver: Unremarkable. No focal lesions are seen. Gallbladder and biliary tree: No calcified gallstones. Normal caliber wall. No intra- or extrahepatic biliary ductal dilation. Pancreas: Unremarkable, no focal lesions. Spleen: Splenule is incidentally noted. Adrenals: Unremarkable. Kidneys and ureters: Subcentimeter hypodensities are too small to characterize. Bladder: Diffuse homogeneous wall thickening is seen. Reproductive organs: Prostatomegaly is seen. Bowel: Diverticulosis is seen without evidence of diverticulitis. Small hiatal hernia is seen. Lymph nodes Retroperitoneal: Unremarkable. Pelvic: Unremarkable. Mesenteric: Unremarkable. Peritoneum: Normal. Vessels: Atherosclerotic calcifications are seen. Abdominal wall: Unremarkable. Bones: Degenerative changes in the visualized spine. IMPRESSION: No acute abnormalities and in particular no evidence of fracture. ACT 112: Negative or not required by law. Electronically signed by: Jorje Espinal M.D. 01/05/2024 2:[address] 01/05/24 12:[address] WITH CONTRAST CT DOSE: HISTORY: Fall yesterday, upper back/L rib/L flank pain TECHNIQUE: Multiaxial CT images of the chest were performed following the intravenous administration of contrast. A dose lowering technique was utilized adhering to the principles of ALARA. COMPARISON: Chest CTA 12/12/2023. FINDINGS: Subtle deformity within the left anterior second through fifth ribs favor old, healed fractures. No definite acute fractures within the chest. Mild bronchial wall thickening most pronounced within the right lower lobe. Small amount of mucoid material within the right mainstem bronchus and right lower lobe bronchi with partial opacification of the distal right lower lobe bronchi. There are associated interstitial opacities within the base of the right lower lobe which have slightly progressed. There is an 11 mm subpleural nodule within the right lower lobe on image 173, unchanged. Mild interstitial thickening within the base of the left lower lobe, unchanged. This may be chronic. Moderate to severe emphysema again noted. No pneumothorax. No pleural effusions. There is 9 mm right thyroid nodule. This does not meet CT criteria for follow-up. Normal esophagus. The abdominal structures will be reported on the same day abdomen and pelvis CT. The heart is normal in size. Trace anterior pericardial fluid is noted. No mediastinal hematoma. Subcentimeter mediastinal and hilar lymph nodes do not meet CT criteria for pathologic involvement. Mild calcified plaque within the normal caliber thoracic aorta. Moderate coronary artery calcifications are noted. The central pulmonary arteries are patent. IMPRESSION: 1. Subtle deformity within the left anterior second through fifth ribs favor old, healed fractures. No definite acute fractures within the chest. 2. Emphysema. 3. An 11 mm subpleural nodule within the right lower lobe again noted. [address] follow-up recommended to ensure resolution and to the possibility of a developing neoplasm. 4. Small amount of mucoid material within the right mainstem bronchus and right lower lobe bronchi with partial opacification of the distal right lower lobe bronchi. There are associated interstitial opacities within the base of the right lower lobe which have slightly progressed. This suggests a mild interstitial pneumonitis and could be due to prior aspiration. ACT 112: Negative or not required by law. Electronically signed by: Shadi Lindsey M.D. 01/05/2024 1:[address] 01/05/24 12:48 CT head/brain wo con CLINICAL HISTORY: 83 years-old Male with Fall yesterday, L arm pain/feels weak. Acute head trauma status post fall TECHNIQUE: Multiple axial CT images of the head were obtained without contrast. A dose lowering technique was utilized adhering to the principles of ALARA. CT DOSE: 2791.68 mGy.cm COMPARISON: 01/04/2024 FINDINGS: The left orbital floor and left lamina papyracea fracture is better appreciated on the same day facial bone CT. Trace hemorrhage noted within the left maxillary sinus. There is left periorbital soft tissue swelling. Prior bilateral lens replacement. The calvarium and skull base are intact. There is no mass, hematoma, midline shift, acute infarct. White matter hypodensity is nonspecific but suggestive of microvascular ischemic change. The ventricles and sulci demonstrate mild age-related involutional changes. 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 IMPRESSION: 1. No acute infarct or intracranial hemorrhage. 2. The left orbital floor/lamina papyracea fractures are better appreciated on the 01/04/[address] ACT 112: Negative or not required by law. The above report was generated using voice recognition software. It may contain grammatical, syntax or spelling errors. Electronically signed by: Adeel Breen M.D. 01/05/2024 1:44 PM Shoulder X-Ray 01/05/24 14:30 XR shoulder LT min 2V routine HISTORY: 83 years-old Male L rib pain acute pain of the left shoulder and ribs COMPARISON: Chest CT of same day TECHNIQUE: 3 views of the left shoulder FINDINGS: Moderate glenohumeral and AC joint osteoarthritis. No acute fracture, dislocation or osseous erosion identified. The imaged lung holland appear clear. IMPRESSION: No acute fracture or dislocation. ACT 112: Negative or not required by law. The above report was generated using voice recognition software. It may contain grammatical, syntax or spelling errors. Electronically signed by: Adeel Breen M.D. 01/05/2024 4:04 PM [facility] Narrative Patient was seen and evaluated as above in room D02b. Review was performed of nursing notes and vital signs. I did review pertinent previous visits and patient history. After obtaining a thorough history and physical examination the above work up was performed. Patient presents to us today with worsening left posterior shoulder, left flank/rib pain status post fall that occurred yesterday. He was seen and evaluated at that time and diagnosed with left-sided facial fractures. He went home but now has worsening symptoms therefore prompting arrival here today. He does use 2 L of O2 via nasal cannula chronically which is not new but he does note he is not taking full deep breaths secondary to pain in the left posterior shoulder area. He appears to be in quite a bit of pain when he coughs and is known to be wincing in pain and lifting his left scapular region off of the bed in pain. Options of care were discussed with the patient. IV access was established. Labs were drawn. There is mild leukocytosis 13.67 which is higher than previous from earlier this month. No anemia. There is left shift noting neutrophil predominance at 11.92. Coags normal. No emergent metabolic disturbance. T. bili 1.2. CT imaging was obtained of the head to ensure no delayed bleed. This was negative. CT scan was then performed of the chest, abdomen and pelvis. Results as above. There may be some old rib fractures. There is also what appeared to be some progression of right-sided lung findings which suggest mild interstitial pneumonitis possibly secondary to aspiration. EKG reveals sinus rhythm with first-degree AV block. QTc 442. QRS 94. No ST elevation. I do believe that further evaluation and management is warranted in the inpatient setting. I did order the patient oral acetaminophen and lidocaine patch for pain. IV Zosyn was ordered to cover for possible aspiration pneumonia. Although it appears that this finding is not necessarily new, as the patient does have a frequent enough cough on examination that upon reassessment he continues to have coughing now with an uptrending white count I do believe that antibiotics are warranted Case was discussed with the ED attending physician. GCS: 15 In the evaluation and treatment of this patient the following differential diagnoses were entertained: Pneumothorax, hemothorax, rib fracture, scapular fracture, among others Impression & Plan Fall, Fracture of orbital floor, Left-sided chest wall pain, Abnormal chest CT Discharge Plan Visit Data Chief Complaint: Fall Stated Complaint: FALL, PAIN ED Provider: Diana [facility] ED Midlevel Provider: Atilio Zhao Discharge Problem: Fall, Fracture of orbital floor, Left-sided chest wall pain, Abnormal chest CT Patient Disposition: Admitted As Inpatient Condition: Good Forms Stand Alone Forms: My [facility] Prescriptions Prescriptions: No Action albuterol sulfate 90 mcg/actuation HFA aerosol inhaler 2 inh inhalation QID PRN (Reason: shortness of breath or wheezing) Qty: 18 3RF Hold Instructions: Resume on 09/03/23. azelastine 137 mcg (0.1 %) aerosol,spray 1 spray intranasal BID Qty: 30 3RF Rx Instructions: administer into each nostril empagliflozin 25 mg tablet 25 mg PO QAM Qty: 90 3RF (DME) OneTouch Ultra Test Strip See Rx Instructions .Route Qty: 200 3RF Rx Instructions: Test Twice per day as needed atorvastatin 20 mg tablet 20 mg PO QAM Qty: 90 3RF ipratropium-albuterol 0.5 mg-3 mg(2.5 mg base)/3 mL solution for nebulization 3 ml inhalation Q4H PRN (Reason: shortness of breath or wheezing) Qty: 180 3RF aspirin 81 mg tablet,delayed release (DR/EC) 81 mg PO QAM levothyroxine 88 mcg tablet 88 mcg PO QAM Qty: 90 3RF Dulera 200-5 mcg/actuation HFA aerosol inhaler 2 puff inhalation BID Qty: 13 3RF potassium chloride 20 mEq tablet extended release 20 meq PO DAILY Qty: 90 1RF Spiriva Respimat 2.5 mcg/actuation mist 2 puff inhalation DAILY Qty: 3 3RF benzonatate 100 mg capsule 100 mg PO TID PRN (Reason: cough) Qty: 30 1RF losartan 25 mg tablet 25 mg PO DAILY metformin 500 mg tablet extended release 24 hr 1,000 mg PO BID (DME) Oxygen Home Liters Per Minute See Rx Instructions .ROUTE .MEDSUPPLY Qty: 1 0RF Rx Instructions: 2 liters with activity/ambulation. (DME) Oxygen Home Liters Per Minute See Rx Instructions .Route Qty: 2 0RF Rx Instructions: As directed amoxicillin-pot clavulanate 875-125 mg tablet 1 tab PO BID 7 Days Qty: 13 0RF Rx Instructions: First dose in ER 01/04/24 PM DOSE. PER PT "DID NOT GET PICKED UP FROM PHARMACY". Referrals Referrals: Dianne Diamond PA-C [Physician Nutrition Professor] - 01/05/24 5:00 pm Kimberlee Syed MD [Primary Care Provider] -
--- NOTE | 2024-01-05 12:12 | Emergency Department Note ---
ED Visit Note I was consulted by the Advanced Practice Provider, Atilio Zhao PA-C. I performed a substantive portion of the visit. This includes aspects of: History: Patient is an 83-year-old male presenting with left upper back and flank pain after a fall. Patient fell yesterday when he tried to open the door and fell. He does not recall much of the event. He is not on any anticoagulation. He was noted to have a left orbital floor fracture yesterday and had negative workup otherwise. He states that he has since developed pain in his left shoulder MDM: - Laboratory workup interpreted by myself showed leukocytosis (WBC 13.67); normal PT/INR; stable electrolytes - Shoulder xray negative for fracture, per my interpretation - CT head wo contrast negative for acute pathology - CT chest with IV contrast showed left anterior second through fifth rib fractures which appear old and healed. Also noted to have what appears to be mild interstitial pneumonitis. - CT abdomen/pelvis with IV contrast negative for acute pathology. - Patient given lidoderm patch, PO tylenol and IV zosyn. - Will admit to hospitalist service for further evaluation and management. .
[2024-01-05 12:44] LABS: Basophils # (auto) 0.07 K/uL (0.00-0.20); Basophils % (auto) 0.5 %; Eosinophils # (auto) 0.03 K/uL (0.00-0.50); Eosinophils % (auto) 0.2 %; Hematocrit (blood only) 50.8 % (42.0-52.0); Hemoglobin 16.9 g/dl (14.0-18.0); Immature Granulocytes # (auto) 0.22 K/uL (0.01-0.20); Immature Granulocytes % (auto) 1.6 %; Lymphocytes # (auto) 0.75 K/uL (1.20-3.40); Lymphocytes % (auto) 5.5 %; Mean Corpuscular Hemoglobin 29.4 pg (25.0-34.0); Mean Corpuscular Hgb Conc 33.3 g/dL (32.0-36.0); Mean Corpuscular Volume 88.3 fL (80.0-100.0); Mean Platelet Volume 10.2 fL (9.4-12.4); Monocytes # (auto) 0.68 K/uL (0.11-0.59); Neutrophils # (auto) 11.92 K/uL (1.40-6.50); Neutrophils % (auto) 87.2 %; Platelet Count 226 K/uL (130-400); RDW Coefficient of Variation 13.5 % (11.5-14.5); RDW Standard Deviation 43.7 fL (36.4-46.3); Red Blood Count 5.75 M/uL (4.70-6.10); White Blood Count 13.67 K/ul (4.8-10.8)
[2024-01-05 13:04] LABS: Albumin Globulin Ratio 1.8 (0.9-2); Albumin Level 4.7 gm/dl (3.4-5.0); BUN Creatinine Ratio 26.1 (10-20); Bilirubin,Total 1.2 mg/dl (0.2-1.0); Calcium 9.7 mg/dl (8.6-10.3); Creatinine Clr Calc Pharmacy 79.9 ml/min; Est GFR (African American) 102.5 ml/min; Est GFR (Non-African American) 88.4 ml/min; Globulin 2.6 gm/dl (2.5-4.0); Potassium 4.5 mmol/L (3.5-5.1); Total Protein 7.3 gm/dl (6.0-8.3)
[2024-01-05 13:16] LABS: Partial Thromboplastin Ratio 0.9; Partial Thromboplastin Time 25 Seconds (21-31); Prothrombin Time 10.6 Seconds (9.0-12.0)
[2024-01-05] MEDS: OPTIRAY 320 100ml IV ONE (13:21)
--- NOTE | 2024-01-05 13:46 | CT Scan Report ---
CT head/brain wo con CLINICAL HISTORY: 83 years-old Male with Fall yesterday, L arm pain/feels weak. Acute head trauma st atus post fall TECHNIQUE: Multiple axial CT images of the head were obtained without contrast. A dose lowering tech nique was utilized adhering to the principles of ALARA. CT DOSE: 2791.68 mGy.cm COMPARISON: 01/04/2024 FINDINGS: The left orbital floor and left lamina papyracea fracture is better appreciated on the same day facia l bone CT. Trace hemorrhage noted within the left maxillary sinus. There is left periorbital soft tis parminder swelling. Prior bilateral lens replacement. The calvarium and skull base are intact. There is no mass, hematoma, midline shift, acute infarct. White matter hypodensity is nonspecific but suggestive of microvascular ischemic change. The ventricles and sulci demonstrate mild age-related involutional changes. 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 IMPRESSION: 1. No acute infarct or intracranial hemorrhage. 2. The left orbital floor/lamina papyracea fractures are better appreciated on the 01/04/[address] ACT 112: Negative or not required by law. The above report was generated using voice recognition software. It may contain grammatical, syntax o r spelling errors. Electronically signed by: Adeel Breen M.D. 01/05/2024 1:44 PM
--- NOTE | 2024-01-05 13:59 | CT Scan Report ---
CHEST CT WITH CONTRAST CT DOSE: HISTORY: Fall yesterday, upper back/L rib/L flank pain TECHNIQUE: Multiaxial CT images of the chest were performed following the intravenous administration of contrast. A dose lowering technique was utilized adhering to the principles of ALARA. COMPARISON: Chest CTA 12/12/2023. FINDINGS: Subtle deformity within the left anterior second through fifth ribs favor old, healed fract ures. No definite acute fractures within the chest. Mild bronchial wall thickening most pronounced wi thin the right lower lobe. Small amount of mucoid material within the right mainstem bronchus and rig ht lower lobe bronchi with partial opacification of the distal right lower lobe bronchi. There are as sociated interstitial opacities within the base of the right lower lobe which have slightly progresse d. There is an 11 mm subpleural nodule within the right lower lobe on image 173, unchanged. Mild inte rstitial thickening within the base of the left lower lobe, unchanged. This may be chronic. Moderate to severe emphysema again noted. No pneumothorax. No pleural effusions. There is 9 mm right thyroid n odule. This does not meet CT criteria for follow-up. Normal esophagus. The abdominal structures will be reported on the same day abdomen and pelvis CT. The heart is normal in size. Trace anterior perica rdial fluid is noted. No mediastinal hematoma. Subcentimeter mediastinal and hilar lymph nodes do not meet CT criteria for pathologic involvement. Mild calcified plaque within the normal caliber thoraci c aorta. Moderate coronary artery calcifications are noted. The central pulmonary arteries are patent . IMPRESSION: 1. Subtle deformity within the left anterior second through fifth ribs favor old, healed fractures. N o definite acute fractures within the chest. 2. Emphysema. 3. An 11 mm subpleural nodule within the right lower lobe again noted. [address] follow-up rec ommended to ensure resolution and to the possibility of a developing neoplasm. 4. Small amount of mucoid material within the right mainstem bronchus and right lower lobe bronchi wi th partial opacification of the distal right lower lobe bronchi. There are associated interstitial op acities within the base of the right lower lobe which have slightly progressed. This suggests a mild interstitial pneumonitis and could be due to prior aspiration. ACT 112: Negative or not required by law. Electronically signed by: Shadi Lindsey M.D. 01/05/2024 1:57 PM
--- NOTE | 2024-01-05 14:25 | CT Scan Report ---
CT abd pelvis IV con only CLINICAL HISTORY: Fall yesterday, upper back/L rib/L flank pain TECHNIQUE: Helical axial images of the abdomen and pelvis were obtained and displayed. Automated dose lowering techniques and/or adjustment according to patient size were utilized for this exam. This e xam was performed with intravenous contrast. COMPARISON: Comparison is made to CT abdomen pelvis 10/07/2023 FINDINGS: Lower chest: Emphysema and bronchial wall thickening is seen. Liver: Unremarkable. No focal lesions are seen. Gallbladder and biliary tree: No calcified gallstones. Normal caliber wall. No intra- or extrahepatic biliary ductal dilation. Pancreas: Unremarkable, no focal lesions. Spleen: Splenule is incidentally noted. Adrenals: Unremarkable. Kidneys and ureters: Subcentimeter hypodensities are too small to characterize. Bladder: Diffuse homogeneous wall thickening is seen. Reproductive organs: Prostatomegaly is seen. Bowel: Diverticulosis is seen without evidence of diverticulitis. Small hiatal hernia is seen. Lymph nodes Retroperitoneal: Unremarkable. Pelvic: Unremarkable. Mesenteric: Unremarkable. Peritoneum: Normal. Vessels: Atherosclerotic calcifications are seen. Abdominal wall: Unremarkable. Bones: Degenerative changes in the visualized spine. IMPRESSION: No acute abnormalities and in particular no evidence of fracture. ACT 112: Negative or not required by law. Electronically signed by: Jorje Espinal M.D. 01/05/2024 2:24 PM
--- NOTE | 2024-01-05 15:14 | History & Physical Report ---
Date of Service January 05, 2024 Assessment & Plan (1) Fall: Plan: Concerning although unclear history of possible loss of consciousness and ending up on the floor 15 feet from where he started Monitor on telemetry for arrhythmia ?hypoxia - monitor for this on exertion PT/OT dionna (2) Pleuritic chest pain: Plan: Suspected MSK related to his fall yesterday, pain is reproducible over the left scapula No new rib fractures seen on CT Pain control with acetaminophen 1 g p.o. TID, second line ibuprofen, third-line oxycodone (3) Mucoid impaction of bronchi: Plan: Known aspiration risk, continue aspiration precautions Incentive spirometer, flutter valve Sputum culture - prior bronchoscopy washing with pseudomonas (4) Fracture of orbital floor: Plan: Augmentin BID Consult ENT (5) Type 2 diabetes mellitus with microalbuminuria: Plan: HbA1C 7.9 [12/13/23] Hold metformin due to IV contrast Hold empagliflozin due to hospital protocol for diabetes without heart failure Novolog: --Goal BSG Range: Low 110 mg/dL, High 140 mg/dL --Correction Factor: 45 mg/dL/unit No carb ratio --BSGs ACHS if eating, q6h if npo Add basal dosing if requiring frequent doses for correction Plan BPH - continue tamsulosin Hypothyroidism - continue levothyroxine, TSH normal in October COPD - continue usual maintenance inhalers Chronic respiratory failure - currently at baseline 2 L/min O2 VTE Prophylaxis - chemical deferred due to recent trauma Diet - T2DM, aspiration precautions Disposition - observation to med/tele Admission and Anticipated Discharge Date Admission Date: January 05, 2024 History of Present Illness Chief Complaint: Left chest pain Primary Care Provider: Kimberlee Syed MD Antonio Seymour is an 83 year old male who presents to the ER with left sided chest pain. This started following a fall yesterday. He fall occurred while walking into his house. He does not remember exactly what happened but suddenly found h imself staggering all over the place and the last thing he remembers was hitting the ground approximately 15 to 20 feet from where he was originally started. He thinks he lost consciousness. He was seen in the emergency room yesterday with CT head, face, cervical spine showed a left orbital floor fracture. Patient was discussed with ENT and he was started on Augmentin with ENT follow-up as an outp atient. After discharge from the emergency room his left-sided chest pain became more apparent that was much worse when he tried going to sleep. It is worse on coughing (he has a chronic cough no worse than usual), moving or deep breathing. Left-sided chest radiating to the back and shoulder. He is on 2LPM O2 at baseline due to COPD. Allergies Allergy/AdvReac Type Severity Reaction Status Date / Time No Known Allergies Allergy Verified 01/05/24 15:15 Home Medications Medication Instructions Recorded Confirmed Type Oxygen Home #1 ea 05/19/22 11/04/23 Rx albuterol sulfate 90 mcg/actuation 2 inh inhalation QID PRN shortness 04/15/23 01/05/24 Rx aerosol inhaler of breath or wheezing #18 grams blood sugar diagnostic (OneTouch #200 ea 06/09/23 11/04/23 Rx Ultra Test strips) azelastine 137 mcg (0.1 %) nasal 1 spray intranasal BID #30 mL 07/02/23 01/05/24 Rx spray losartan 25 mg tablet 25 mg PO DAILY 07/04/23 01/05/24 History metformin 500 mg tablet,extended 1,000 mg PO BID 07/04/23 01/05/24 History release 24 hr aspirin 81 mg tablet,delayed 81 mg PO QAM 07/08/23 01/05/24 History release Oxygen Home #2 L 08/20/23 11/04/23 Rx levothyroxine 88 mcg tablet 88 mcg PO QAM #90 tabs 09/23/23 01/05/24 Rx mometasone-formoterol HFA 200 2 puff inhalation BID #13 grams 09/23/23 01/05/24 Rx mcg-5 mcg/actuation aerosol inhaler (Dulera) benzonatate 100 mg capsule 100 mg PO TID PRN cough #30 caps 10/09/23 01/05/24 Rx potassium chloride 20 mEq 20 meq PO DAILY #90 tabs 10/09/23 01/05/24 Rx tablet,extended release tiotropium bromide 2.5 2 puff inhalation DAILY #3 Inhalers 10/09/23 01/05/24 Rx mcg/actuation mist for inhalation (Spiriva Respimat) empagliflozin 25 mg tablet 25 mg PO QAM #90 tabs 10/21/23 01/05/24 Rx atorvastatin 20 mg tablet 20 mg PO QAM #90 tabs 12/29/23 01/05/24 Rx ipratropium 0.5 mg-albuterol 3 mg 3 ml inhalation Q4H PRN shortness 12/29/23 01/05/24 Rx (2.5 mg base)/3 mL nebulization of breath or wheezing #180 vials soln amoxicillin 875 mg-potassium 1 tab PO BID 7 days #13 tabs 01/04/24 01/05/24 Rx clavulanate 125 mg tablet Past Med/Surg History Problem List (Updated 01/06/24 @ 01:32 by Julio Crow MD) Mucoid impaction of bronchi Pleuritic chest pain Fracture of orbital floor (Acute) Abnormal chest CT (Acute) Left-sided chest wall pain (Acute) Fall (Acute) Chronic hypoxic respiratory failure Hearing loss Inguinal hernia CAD (coronary artery disease) Hypertension Chronic bronchitis Chronic obstructive pulmonary disease (Acute) Type 2 diabetes mellitus with microalbuminuria Urinary urgency BPH (benign prostatic hyperplasia) Hyperlipidemia Urinary frequency Hypothyroidism Chronic sinusitis (Chronic) Chronic dyspnea (Chronic) Medical History Diplopia Dysphagia Actinic keratosis Required emergent intubation Pneumonia COPD, severe Tobacco abuse Neck pain Abnormal chest CT Pneumonia Severe protein-calorie malnutrition Pneumonia Hypersomnolence COPD with emphysema inhalers daily/prn, nebulizer prn COPD (chronic obstructive pulmonary disease) case management patient Acquired deviated nasal septum Chronic gout Frequent PVCs Incidental lung nodule, > 3mm and < 8mm Tobacco use Chronic diarrhea Surgical History Hx of vasectomy History of colonoscopy last 2019 History of Mohs micrographic surgery for skin cancer x3 History of wisdom tooth extraction History of bilateral cataract extraction History of appendectomy age 11 History of tonsillectomy Family History Other No family history of adverse response to anesthesia No family history of bleeding disorder Denies family history of Ovarian cancer Prostate cancer Myocardial infarction Breast cancer Colorectal cancer Social History Smoking Status: Former smoker Tobacco Type: Cigarettes Age Started Using Tobacco: 21; Age Quit Using Tobacco: 82; packs per day: 2; Second Hand Exposure: No; Do You Dip or Chew Tobacco: No; Hx Alcohol Use: No Hx Substance Use: No Preferred Language: [place] Communication Ability: Effective Visual Impairment: No Limitations Hearing Ability: Normal 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 Required: No Beliefs That Will Affect Care: None marital status: Single Current Living Situation: Alone current occupational status: retired How many Children do You have: 1 Feels Safe at Home: Yes Safety Concerns: Feels Safe At This Time Dental Care, Regularly: Yes Physical Activity Frequency: 1-2 Times per Week Seatbelt Use: always Sunscreen Use: No Assistive Devices: Oxygen - Continuous Review of Systems Review of Systems: All systems reviewed & are unremarkable except as noted in HPI & below Physical Exam Constitutional: WD/WN, vitals as above Eyes: PERRL Left infraorbital ecchymosis ENMT: external ear and nose normal, oropharynx normal Respiratory: normal respiratory effort; no respiratory distress Auscultation: + crackles (Right base); breath sounds present, no diminished lung sounds, no rales, no rhonchi and no wheezes Cardiovascular: RRR, no murmur, no edema Gastrointestinal (Abdomen): normal bowel sounds, soft, nontender, no hepatosplenomegaly Skin: Dorsal left hand ecchymosis No areas of cellulitis noted Neurologic: moves all extremities and awake; not confused Psychiatric: A+Ox3, euthymic affect Results & Data Results & Data Vital Signs (Past 12 Hours) Vital Signs Temp Pulse Pulse Resp BP BP Pulse Ox 01/05/24 14:46 76 16 151/98 H 96 01/05/24 12:55 69 01/05/24 12:29 01/05/24 11:31 36.5 C 87 20 154/91 H 91 O2 Del Method O2 Flow Rate 01/05/24 14:46 Nasal Cannula 2 01/05/24 12:55 01/05/24 12:29 Room Air 2 01/05/24 11:31 Room Air Laboratory Results Abnormal lab results 01/05/24 Range/Units 12:07 WBC 13.67 H (4.8-10.8) K/ul Neut # (Auto) 11.92 H (1.40-6.50) K/uL Lymph # (Auto) 0.75 L (1.20-3.40) K/uL [place] # (Auto) 0.68 H (0.11-0.59) K/uL Immature Gran # (Auto) 0.22 H (0.01-0.20) K/uL BUN/Creatinine Ratio 26.1 H (10-20) Glucose 113 H (70-99(Fasting)) mg/dl Total Bilirubin 1.2 H (0.2-1.0) mg/dl Diagnostic Findings CT head/brain wo con CLINICAL HISTORY: 83 years-old Male with Fall yesterday, L arm pain/feels weak. Acute head trauma status post fall TECHNIQUE: Multiple axial CT images of the head were obtained without contrast. A dose lowering technique was utilized adhering to the principles of ALARA. CT DOSE: 2791.68 mGy.cm COMPARISON: 01/04/2024 FINDINGS: The left orbital floor and left lamina papyracea fracture is better appreciated on the same day facial bone CT. Trace hemorrhage noted within the left maxillary sinus. There is left periorbital soft tissue swelling. Prior bilateral lens replacement. The calvarium and skull base are intact. There is no mass, hematoma, midline shift, acute infarct. White matter hypodensity is nonspecific but suggestive of microvascular ischemic change. The ventricles and sulci demonstrate mild age-related involutional changes. 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 IMPRESSION: 1. No acute infarct or intracranial hemorrhage. 2. The left orbital floor/lamina papyracea fractures are better appreciated on the 01/04/[address] Medications Administered ER Medications Given: Lidocaine patch Acetaminophen 500 mg p.o. Zosyn 4.5 g IV ECG Rate (beats per minute): 70 Rhythm: normal sinus Findings: + 1st degree AV block Comparison ECG Date: from (December 12, 2023) Change: the following changes noted (PVCs no longer present) Code Status & VTE Plan Code Status DNR/DNI VTE Prophylaxis Plan VTE Prophylaxis will be ordered: No PG Care Time/CCT Total # of Minutes Spent Total Time Spent with Patient: Total time spent is greater than 50% in coordination of care (as documented) at patient's floor/unit and/or counseling patient: Coding Level of Care Code 93551 INT INP/OBS CARE 3/75MIN Diagnoses Fall, subsequent encounter W19.XXXD Encounter type: subsequent encounter Pleuritic chest pain R07.81 Mucoid impaction of bronchi T17.500A Fracture of orbital floor S02.30XA Type 2 diabetes mellitus with microalbuminuria E11.29; R80.9 (1) Fall Encounter type: subsequent encounter Qualified Code(s): W19.XXXD - Unspecified fall, subsequent encounter
[2024-01-05] MEDS: LIDOCAINE 5% 1 PATCH TD STA (15:21)
[2024-01-05] MEDS: ACETAMINOPHEN 500 MG TAB PO STA (15:21)
[2024-01-05] MEDS: PIPERACILLIN/TAZOBACTAM 4.5 GM/100 ML BAG IV ONE (15:21)
--- NOTE | 2024-01-05 16:05 | XRay Report ---
XR shoulder LT min 2V routine HISTORY: 83 years-old Male L rib pain acute pain of the left shoulder and ribs COMPARISON: Chest CT of same day TECHNIQUE: 3 views of the left shoulder FINDINGS: Moderate glenohumeral and AC joint osteoarthritis. No acute fracture, dislocation or osseous erosion identified. The imaged lung holland appear clear. IMPRESSION: No acute fracture or dislocation. ACT 112: Negative or not required by law. The above report was generated using voice recognition software. It may contain grammatical, syntax o r spelling errors. Electronically signed by: Adeel Breen M.D. 01/05/2024 4:04 PM
--- NOTE | 2024-01-05 21:04 | Oral/Maxillofacial Consult ---
Date of Consultation January 05, 2024 Assessment & Plan (1) Fracture of orbital floor: History of Present Illness Attending Physician: Julio Crow MD History of Present Illness I discussed this case with the ER yesterday. Non displaced left orbital floor fracture with no clinical symptoms I saw Mr. Seymour ThuJanuary 05 for a clinical exam Based on my review of the CT scan and the clinical exam no surgical intervention is needed. Mr. Seymour, has minimal pain associated with the left cheek bone and orbital area. He has no pain on eye movement, his sclera is clear, no complaints of vision a cuity. Overall there is no double vision --he did state that when in looks high above the horizon sometimes of the last few days he has some double vision which is self limiting. I questioned him about this and it really is not a problem and does not bother him with reading, TV, walking and normal activities. Given the minimal clinical findings and slight fractures noted on the CT there is no indication for surgical intervention or need for any future follow up. For an Oral Maxillofacial point of view once he is stable to return back to his home/facility there will no need for follow up or restrictions regarding his facial injury. If his symptoms should change he know to call my office. Chief Complaint: Fall Time Seen by Provider in ER : 01/04/24 10:37 Mode of arrival: ambulatory Limitations: no limitations The ER called me to evaluate the CT regarding an orbital floor blow out with no clinical symptoms pain around his left eye and to the left side of his head. ThursdayJanuary 03 83-year-old male presents to the emergency department with complaints of a headache after fall. Patient states that he fell approximately 4 feet from a concrete slab onto the grass hitting his face. Patient denies any loss of consciousness. Patient has swelling and pain around his left eye and to the left side of his head. Patient also notes some discomfort in his ribs, primarily on the left side. Patient denies any abdominal tenderness, pain to his extremities or any other back pain. Patient denies taking any blood thinners. States that the fall was mechanical, he tripped over the edge of the concrete slab, denies any dizziness or lightheadedness. ThursdayJanuary 04 Admitted for pain and not able to take a deep breath. Maximum Pain Intensity: 9 This is an 83-year-old male that presents to the emergency department via private vehicle with complaints of "fall yesterday". The patient notes that yesterday he was at the door and when he opened up the door he is not sure if he had a seizure or what happened but he notes that his body was "jumping all over" and he ended up about 15 feet from where he started walking when he opened up the door. He does not recall much of the event. No anticoagulant use. He states that he was seen here yesterday for evaluation of injuries from that fall. He notes left orbital floor fracture but essentially no pain at that area. No headache. However, he returns today noting worsening left-sided rib and flank pain status post the fall yesterday. No new falls since his evaluation yesterday. The patient denies any speech trouble. Patient does note some discomfort when he moves that left arm particular in the left scapular area. Patient is not taking full deep breaths because of the pain in his left scapular region. CT facial bones wo con CLINICAL HISTORY: 83 years-old Male presenting with head injury, swelling around left eye. Acute facial pain FINDINGS: Prior bilateral lens repair. Involutional changes of the brain parenchyma. Small periorbital contusions. Large mastoid effusions with fluid also noted within the right middle ear cavity. The mandible appears intact. Degenerative changes of the cervical spine. Acute mildly depressed fracture of the medial left orbital wall/lamina preparation. Acute left orbital floor fracture demonstrates a few millimeters of anterior displacement. No extraocular muscle entrapment. Small amount of layering hemorrhage within the left maxillary sinus. There is mild mucosal thickening of the ethmoid air cells and nasal terminus. Leftward bowing and spurring of the nasal septum. Intact nasal bones. IMPRESSION: 1. Acute mildly displaced left orbital floor and lamina papyracea fractures with small amount of layering hemorrhage within the left maxillary sinus. 2. Small facial contusions. Allergies Allergy/AdvReac Type Severity Reaction Status Date / Time No Known Allergies Allergy Verified 01/05/24 15:15 Home Medications Medication Instructions Recorded Confirmed Type Oxygen Home #1 ea 05/19/22 11/04/23 Rx albuterol sulfate 90 mcg/actuation 2 inh inhalation QID PRN shortness 04/15/23 01/05/24 Rx aerosol inhaler of breath or wheezing #18 grams blood sugar diagnostic (OneTouch #200 ea 06/09/23 11/04/23 Rx Ultra Test strips) azelastine 137 mcg (0.1 %) nasal 1 spray intranasal BID #30 mL 07/02/23 01/05/24 Rx spray losartan 25 mg tablet 25 mg PO DAILY 07/04/23 01/05/24 History metformin 500 mg tablet,extended 1,000 mg PO BID 07/04/23 01/05/24 History release 24 hr aspirin 81 mg tablet,delayed 81 mg PO QAM 07/08/23 01/05/24 History release Oxygen Home #2 L 08/20/23 11/04/23 Rx levothyroxine 88 mcg tablet 88 mcg PO QAM #90 tabs 09/23/23 01/05/24 Rx mometasone-formoterol HFA 200 2 puff inhalation BID #13 grams 09/23/23 01/05/24 Rx mcg-5 mcg/actuation aerosol inhaler (Dulera) benzonatate 100 mg capsule 100 mg PO TID PRN cough #30 caps 10/09/23 01/05/24 Rx potassium chloride 20 mEq 20 meq PO DAILY #90 tabs 10/09/23 01/05/24 Rx tablet,extended release tiotropium bromide 2.5 2 puff inhalation DAILY #3 Inhalers 10/09/23 01/05/24 Rx mcg/actuation mist for inhalation (Spiriva Respimat) empagliflozin 25 mg tablet 25 mg PO QAM #90 tabs 10/21/23 01/05/24 Rx atorvastatin 20 mg tablet 20 mg PO QAM #90 tabs 12/29/23 01/05/24 Rx ipratropium 0.5 mg-albuterol 3 mg 3 ml inhalation Q4H PRN shortness 12/29/23 01/05/24 Rx (2.5 mg base)/3 mL nebulization of breath or wheezing #180 vials soln amoxicillin 875 mg-potassium 1 tab PO BID 7 days #13 tabs 01/04/24 01/05/24 Rx clavulanate 125 mg tablet Patient History Medical History Diplopia Dysphagia Actinic keratosis Required emergent intubation Pneumonia COPD, severe Tobacco abuse Neck pain Abnormal chest CT Pneumonia Severe protein-calorie malnutrition Pneumonia Hypersomnolence COPD with emphysema inhalers daily/prn, nebulizer prn COPD (chronic obstructive pulmonary disease) case management patient Acquired deviated nasal septum Chronic gout Frequent PVCs Incidental lung nodule, > 3mm and < 8mm Tobacco use Chronic diarrhea Surgical History Hx of vasectomy History of colonoscopy last 2018 History of Mohs micrographic surgery for skin cancer x3 History of wisdom tooth extraction History of bilateral cataract extraction History of appendectomy age 11 History of tonsillectomy Family History Other No family history of adverse response to anesthesia No family history of bleeding disorder Denies family history of Ovarian cancer Prostate cancer Myocardial infarction Breast cancer Colorectal cancer Social History Smoking Status: Former smoker Tobacco Type: Cigarettes Age Started Using Tobacco: 21; Age Quit Using Tobacco: 82; packs per day: 2; Second Hand Exposure: No; Do You Dip or Chew Tobacco: No; Hx Alcohol Use: No Hx Substance Use: No Preferred Language: Serbian Communication Ability: Effective Visual Impairment: No Limitations Hearing Ability: Normal Probation And Parole Officer Required: No Beliefs That Will Affect Care: None marital status: Single Current Living Situation: Alone current occupational status: retired How many Children do You have: 1 Feels Safe at Home: Yes Safety Concerns: Feels Safe At This Time Dental Care, Regularly: Yes Physical Activity Frequency: 1-2 Times per Week Seatbelt Use: always Sunscreen Use: No Assistive Devices: Oxygen - Continuous Results & Data Vital Signs (Past 12 Hours) Vital Signs Temp Pulse Pulse Resp BP BP Pulse Ox 01/05/24 19:45 37 C 72 18 178/96 H 94 01/05/24 18:22 67 19 137/91 97 01/05/24 17:35 71 01/05/24 16:00 76 18 136/78 96 01/05/24 14:46 76 16 151/98 H 96 01/05/24 12:55 69 01/05/24 12:29 01/05/24 11:31 36.5 C 87 20 154/91 H 91 O2 Del Method O2 Flow Rate 01/05/24 19:45 Nasal Cannula 2 01/05/24 18:22 Nasal Cannula 2 01/05/24 17:35 01/05/24 16:00 Nasal Cannula 01/05/24 14:46 Nasal Cannula 2 01/05/24 12:55 01/05/24 12:29 Room Air 2 01/05/24 11:31 Room Air PG Care Time/CCT Total # of Minutes Spent Total Time Spent with Patient: Total time spent is greater than 50% in coordination of care (as documented) at patient's floor/unit and/or counseling patient: Coding Level of Care Code 07283 INT INP/OBS CARE MIN Diagnoses Closed fracture of left orbital floor with routine healing, subsequent encounter S02.32XD Encounter type: subsequent encounter Fracture type: closed Laterality: left Fracture healing: with routine healing (1) Fracture of orbital floor Encounter type: subsequent encounter Fracture type: closed Laterality: left Fracture healing: with routine healing Qualified Code(s): S02.32XD - Fracture of orbital floor, left side, subsequent encounter for fracture with routine healing
[2024-01-05] MEDS ORDERED: CARBOHYDRATES FOR HYPOGLYCEMIA PO PRN (21:16)
[2024-01-05] MEDS ORDERED: GLUCAGON FOR INJ 1 MG VIAL SQ PRN (21:16)
[2024-01-05] MEDS ORDERED: GLUCOSE 40% GEL 15 GM TUBE PO PRN (21:16)
[2024-01-05] MEDS ORDERED: GLUCOSE 10 TAB/TUBE PO PRN (21:16)
[2024-01-05] MEDS ORDERED: DEXTROSE 50% 50 ML SYRINGE IV PRN (21:16)
[2024-01-05] MEDS: AMOXICILLIN/CLAVULANATE 875 MG TAB PO SCH (21:25)
[2024-01-05] MEDS ORDERED: ACETAMINOPHEN 500 MG TAB PO PRN (22:54)
[2024-01-05] MEDS: ACETAMINOPHEN 500 MG TAB ONE (23:28)
[2024-01-05] MEDS: AZELASTINE HCL 0.1% NASAL 200 SPRAYS/27,400 MCG BTL NAE SCH (23:29)
[2024-01-05] MEDS ORDERED: oxyCODONE HCL IR 5 MG TAB (IMMEDIATE RELEASE) PO PRN ×2 (23:32)
[2024-01-06 01:47] LABS: Troponin I High Sensitivity 8.9 pg/ml (0-20)
[2024-01-06] MEDS ORDERED: ONDANSETRON INJ 2 MG/ML 2 ML VIAL IV PRN (04:03)
[2024-01-06] MEDS: LEVOTHYROXINE SODIUM 88 MCG TABLET PO SCH (06:31)
[2024-01-06] MEDS: FLUTICASONE/VILANTEROL 100/25MCG 14 PUFFS/INHALER INH SCH (08:15)
[2024-01-06] MEDS: UMECLIDINIUM BROMIDE 62.5MCG/BLISTER 7 PUFFS/INHALER INH SCH (08:15)
[2024-01-06] MEDS: ATORVASTATIN 20 MG TAB PO SCH (08:16)
[2024-01-06] MEDS: LOSARTAN POTASSIUM 25 MG TAB PO SCH (08:16)
[2024-01-06] MEDS: ACETAMINOPHEN 500 MG TAB PO SCH (08:16)
[2024-01-06] MEDS: ASPIRIN 81 MG ECTAB PO SCH (08:17)
[2024-01-06] MEDS: LIDOCAINE 5% 1 PATCH TD SCH (08:17)
[2024-01-06] MEDS: POTASSIUM CHLORIDE CRTAB 20 MEQ TABCR PO SCH (08:20)
[2024-01-06] MEDS: INSULIN ASPART PER UNIT CHARGE SC SCH (08:50)
[2024-01-06] MEDS ORDERED: EMPAGLIFLOZIN 25 MG TAB PO SCH (09:00)
--- NOTE | 2024-01-06 12:59 | Hospitalist Progress Note ---
Date of Service January 06, 2024 Assessment & Plan (1) Fall: Plan: Patient is unclear and unsure of how he fell, he said he just blanked out and fell some distance from where he started. His EKG did not show any changes compared to the previous ones, only first- degree AV block Upon discharge patient will need at least a 30-day monitor Last 2D echo did not show any wall motion abnormalities or structural heart abnormalities. No orthostatic blood pressure changes here in the hospital. Awaiting physical therapy evaluation (2) Fracture of orbital floor: Plan: CT showed nondisplaced fracture of the orbital floor with some hemorrhage Augmentin BID Consult ENT (3) Pleuritic chest pain: Plan: Suspected MSK related to his fall yesterday, pain is reproducible over the left scapula No new rib fractures seen on CT Pain control with acetaminophen 1 g p.o. TID, second line ibuprofen, third-line oxycodone (4) Mucoid impaction of bronchi: Plan: Known aspiration risk, continue aspiration precautions Incentive spirometer, flutter valve Sputum culture - prior bronchoscopy washing with pseudomonas (5) Type 2 diabetes mellitus with microalbuminuria: Plan: HbA1C 7.9 [12/13/23] Hold metformin due to IV contrast Hold empagliflozin due to hospital protocol for diabetes without heart failure Novolog: --Goal BSG Range: Low 110 mg/dL, High 140 mg/dL --Correction Factor: 45 mg/dL/unit No carb ratio --BSGs ACHS if eating, q6h if npo Add basal dosing if requiring frequent doses for correction (6) Chronic obstructive pulmonary disease: Plan: Some mild expiratory wheeze on exam Continue home inhalers Plan BPH - continue tamsulosin Hypothyroidism - continue levothyroxine, TSH normal in October COPD - continue usual maintenance inhalers Chronic respiratory failure - currently at baseline 2 L/min O2 VTE Prophylaxis - chemical deferred due to recent trauma Diet - T2DM, aspiration precautions Disposition - observation to med/tele Admission and Anticipated Discharge Date Admission Date: January 05, 2024 Subjective Patient seen and examined, unsure of how he fell, said he must of blacked out. Review of Systems Review of Systems: All systems reviewed are negative, apart from the ones contained in the history. Physical Exam Physical Exam: The patient is awake, alert and oriented 3, well developed and well nourished, normocephalic and atraumatic, lying in bed and in no acute distress. HEENT--Right periorbital ecchymosis Neck--supple. No JVD. No bruits. Thyroid normal, trachea midline, no adenopathy. Heart--normal S1 and S2. No murmurs, rubs or gallops. Lungs--clear bilaterally, no respiratory distress, no accessory muscle use. Abdomen--normal bowel sounds and soft. Extremities--no cyanosis or clubbing. No edema. Dermatologic--normal skin turgor, normal color, no abnormal lymph nodes, no rash. Neurologic--cranial nerves II through XII grossly intact. Rheumatologic--normal range of motion. Psychiatric--normal affect. Results & Data Results & Data Vital Signs (Past 12 Hours) Vital Signs Temp Pulse Pulse Resp BP Pulse Ox O2 Del Method 01/06/24 11:38 98.6 F 68 20 136/74 95 Nasal Cannula 01/06/24 08:00 Nasal Cannula 01/06/24 07:48 98.1 F 85 18 128/83 94 Nasal Cannula 01/06/24 07:00 88 01/06/24 02:20 97.9 F 82 18 121/83 94 Nasal Cannula O2 Flow Rate 01/06/24 11:38 5 01/06/24 08:00 2 01/06/24 07:48 2 01/06/24 07:00 01/06/24 02:20 2 PG Care Time/CCT Total # of Minutes Spent Total Time Spent with Patient: Total time spent is greater than 50% in coordination of care (as documented) at patient's floor/unit and/or counseling patient: Coding Level of Care Code 71011 SUB INP/OBS CARE 2/35MIN Diagnoses Fall, subsequent encounter W19.XXXD Encounter type: subsequent encounter Fracture of orbital floor S02.30XA Pleuritic chest pain R07.81 Mucoid impaction of bronchi T17.500A Type 2 diabetes mellitus with microalbuminuria E11.29; R80.9 Simple chronic bronchitis J44.9 Time Spent (min) 35 (1) Fall Encounter type: subsequent encounter Qualified Code(s): W19.XXXD - Unspecified fall, subsequent encounter
[2024-01-06] MEDS: POLYETHYLENE (MIRALAX) 17 GM PACK PO PRN (14:30)
[2024-01-06] MEDS: ALBUT/IPRATROP 3MG/0.5MG NEB 3 ML VIAL NEB PRN (16:43)
[2024-01-06] MEDS: IBUPROFEN 200 MG TAB PO PRN (19:49)
--- NOTE | 2024-01-07 06:23 | Electrocardiogram Report ---
Test Reason : Blood Pressure : / mmHG Vent. Rate : 070 BPM Atrial Rate : 070 BPM P-R Int : 246 ms QRS Dur : 094 ms QT Int : 410 ms P-R-T Axes : 093 063 039 degrees QTc Int : 442 ms Sinus rhythm with 1st degree A-V block Otherwise normal ECG When compared with ECG of 12-DEC-2023 11:24, Premature ventricular complexes are no longer Present QT has shortened Confirmed by Josh Malagon ([id number]) on 01/07/2024 6:23:27 AM Referred By: REFERRED SELF Confirmed By:Josh Malagon
[2024-01-07 07:17] LABS: Hematocrit (blood only) 50.8 % (42.0-52.0); Hemoglobin 16.8 g/dl (14.0-18.0); Mean Corpuscular Hemoglobin 29.1 pg (25.0-34.0); Mean Corpuscular Hgb Conc 33.1 g/dL (32.0-36.0); Mean Corpuscular Volume 87.9 fL (80.0-100.0); Mean Platelet Volume 10.9 fL (9.4-12.4); Platelet Count 254 K/uL (130-400); RDW Coefficient of Variation 13.9 % (11.5-14.5); RDW Standard Deviation 44.5 fL (36.4-46.3); Red Blood Count 5.78 M/uL (4.70-6.10)
[2024-01-07 07:34] LABS: Basophils # (auto) 0.04 K/uL (0.00-0.20); Basophils % (auto) 0.2 %; Eosinophils # (auto) 0.03 K/uL (0.00-0.50); Eosinophils % (auto) 0.1 %; Immature Granulocytes # (auto) 0.14 K/uL (0.01-0.20); Immature Granulocytes % (auto) 0.7 %; Lymphocytes # (auto) 0.45 K/uL (1.20-3.40); Lymphocytes % (auto) 2.1 %; Monocytes # (auto) 1.38 K/uL (0.11-0.59); Monocytes % (auto) 6.4 %; Neutrophils # (auto) 19.36 K/uL (1.40-6.50); Neutrophils % (auto) 90.5 %
[2024-01-07 07:38] LABS: BUN Creatinine Ratio 42.9 (10-20); Calcium 9.2 mg/dl (8.6-10.3); Creatinine Clr Calc Pharmacy 87.5 ml/min; Est GFR (African American) 106.4 ml/min; Est GFR (Non-African American) 91.8 ml/min; Potassium 4.3 mmol/L (3.5-5.1)
[2024-01-07] MEDS: AMPICILLIN/SULBACTAM SOD 3,000 MG in SODIUM CHLOR 0.9% MINI-B 100 ML IV SCH (09:07)
--- NOTE | 2024-01-07 12:20 | Hospitalist Progress Note ---
Date of Service January 07, 2024 Assessment & Plan (1) Fall: Plan: Patient is unclear and unsure of how he fell, he said he just blanked out and fell some distance from where he started. His EKG did not show any changes compared to the previous ones, only first- degree AV block Upon discharge patient will need at least a 30-day monitor Last 2D echo did not show any wall motion abnormalities or structural heart abnormalities. No orthostatic blood pressure changes here in the hospital. Physical therapy recommends SNF (2) Fracture of orbital floor: Plan: CT showed mildly displaced fracture of the orbital floor with some hemorrhage Augmentin BID Consult ENT (3) Leukocytosis: Plan: Etiology is unclear, WBC 21,000 today Initially was on p.o. Augmentin, will change to IV Unasyn for now Continue to monitor cultures. However patient denies fevers or chills (4) Pleuritic chest pain: Plan: Suspected MSK related to his fall yesterday, pain is reproducible over the left scapula No new rib fractures seen on CT Pain control with acetaminophen 1 g p.o. TID, second line ibuprofen, third-line oxycodone (5) Mucoid impaction of bronchi: Plan: Known aspiration risk, continue aspiration precautions Incentive spirometer, flutter valve Sputum culture - prior bronchoscopy washing with pseudomonas (6) Type 2 diabetes mellitus with microalbuminuria: Plan: HbA1C 7.9 [12/13/23] Hold metformin due to IV contrast Hold empagliflozin due to hospital protocol for diabetes without heart failure Novolog: --Goal BSG Range: Low 110 mg/dL, High 140 mg/dL --Correction Factor: 45 mg/dL/unit No carb ratio --BSGs ACHS if eating, q6h if npo Add basal dosing if requiring frequent doses for correction (7) Chronic obstructive pulmonary disease: Plan: Some mild expiratory wheeze on exam Continue home inhalers Plan BPH - continue tamsulosin Hypothyroidism - continue levothyroxine, TSH normal in October COPD - continue usual maintenance inhalers Chronic respiratory failure - currently at baseline 2 L/min O2 VTE Prophylaxis - chemical deferred due to recent trauma Diet - T2DM, aspiration precautions Disposition - Physical therapy recommends SNF Admission and Anticipated Discharge Date Admission Date: January 06, 2024 Subjective Patient seen and examined, Agreeable to go to rehab Review of Systems Review of Systems: All systems reviewed are negative, apart from the ones contained in the history. Physical Exam Physical Exam: The patient is awake, alert and oriented 3, well developed and well nourished, normocephalic and atraumatic, lying in bed and in no acute distress. HEENT--Right periorbital ecchymosis Neck--supple. No JVD. No bruits. Thyroid normal, trachea midline, no adenopathy. Heart--normal S1 and S2. No murmurs, rubs or gallops. Lungs--clear bilaterally, no respiratory distress, no accessory muscle use. Abdomen--normal bowel sounds and soft. Extremities--no cyanosis or clubbing. No edema. Dermatologic--normal skin turgor, normal color, no abnormal lymph nodes, no rash. Neurologic--cranial nerves II through XII grossly intact. Rheumatologic--normal range of motion. Psychiatric--normal affect. Results & Data Results & Data Vital Signs (Past 12 Hours) Vital Signs Temp Pulse Pulse Resp BP Pulse Ox Pulse Ox 01/07/24 11:19 97.7 F 78 18 130/80 95 01/07/24 10:34 93 01/07/24 07:33 97.5 F L 85 18 133/78 93 01/07/24 07:30 69 01/07/24 03:10 97.9 F 67 18 132/72 94 O2 Del Method O2 Flow Rate O2 Flow Rate 01/07/24 11:19 Nasal Cannula 2 01/07/24 10:34 2 01/07/24 07:33 Nasal Cannula 2 01/07/24 07:30 01/07/24 03:10 Nasal Cannula 2 PG Care Time/CCT Total # of Minutes Spent Total Time Spent with Patient: Total time spent is greater than 50% in coordination of care (as documented) at patient's floor/unit and/or counseling patient: Coding Level of Care Code 98747 SUB INP/OBS CARE 2/35MIN Diagnoses Fall, subsequent encounter W19.XXXD Encounter type: subsequent encounter Closed fracture of left orbital floor with routine healing, subsequent encounter S02.32XD Encounter type: subsequent encounter Fracture healing: with routine healing Fracture type: closed Laterality: left Leukocytosis D72.829 Pleuritic chest pain R07.81 Mucoid impaction of bronchi T17.500A Type 2 diabetes mellitus with microalbuminuria E11.29; R80.9 Simple chronic bronchitis J44.9 Time Spent (min) 35 (1) Fall Encounter type: subsequent encounter Qualified Code(s): W19.XXXD - Unspecified fall, subsequent encounter (2) Fracture of orbital floor Encounter type: subsequent encounter Fracture healing: with routine healing Fracture type: closed Laterality: left Qualified Code(s): S02.32XD - Fracture of orbital floor, left side, subsequent encounter for fracture with routine healing
[2024-01-08 06:43] LABS: Hematocrit (blood only) 53.9 % (42.0-52.0); Hemoglobin 17.2 g/dl (14.0-18.0); Mean Corpuscular Hemoglobin 28.7 pg (25.0-34.0); Mean Corpuscular Hgb Conc 31.9 g/dL (32.0-36.0); Mean Corpuscular Volume 89.8 fL (80.0-100.0); Mean Platelet Volume 10.3 fL (9.4-12.4); Platelet Count 293 K/uL (130-400); RDW Standard Deviation 45.8 fL (36.4-46.3); White Blood Count 17.48 K/ul (4.8-10.8)
[2024-01-08 07:03] LABS: BUN Creatinine Ratio 40.2 (10-20); Creatinine Clr Calc Pharmacy 67.2 ml/min; Est GFR (African American) 95.4 ml/min; Est GFR (Non-African American) 82.4 ml/min; Potassium 4.3 mmol/L (3.5-5.1)
[2024-01-08] MEDS: POLYETHYLENE (MIRALAX) 17 GM PACK PO SCH (09:58)
--- NOTE | 2024-01-08 10:34 | Palliative Care Consultation ---
Date of Consultation January 08, 2024 Assessment & Plan (1) Pleuritic chest pain: (2) Left-sided chest wall pain: (3) Dyspnea and respiratory abnormalities: (4) Anxiety disorder due to general medical condition: (5) Palliative care by specialist: Discussed Palliative Medicine provides specialized medical care for patients with a serious illness. We offer a focus on quality of life through reduction of symptom burden/more control over their illness, for patients and their family. Palliative Medicine interventions can be given along with curative treatment. I specifically clarified we are not hospice, which is a visiting nurse service that focuses on care delivered at the very end of life. (6) Advanced care planning/counseling discussion: 30min face to face ACP with pt He is aware of his COPD likely advancing but is overdue for pulm visit, cannot recall last PFT Admits he was a 2-3PPD smoker for nearly 60 years, quit August 2022. Feels he has mostly good days but has been starting to question some 'what if' scenarios of progressive illness. Reaffirms no CPR and has elected DNR/DNI. From the goals perspective, he wants to focus on trying to optimize. Hopes to return home. States he knows he needs return visit with pulm med and anticipates at some point this fall he will need repeat PFTs. Unsure what that will show but he admits he fears it will show worsening disease. He has not had issues like this fall in past but worries now what it means for future. Open to trial of rehab or home health. Tells me people have mentioned hospice but he does not feel he is at that crossroad. He wants to see what other COPD treatments may be an option first. He is receptive and happy to have the offer for OP Pall med followup and ongoing symptom mgt. Plan As above Pall Med clinic with me in 3-4 weeks -we will schedule. Thank you for allowing us to participate in the ongoing care of this patient. Please page with any additional concerns. Dilip Easley DNP Director, Palliative Medicine History of Present Illness Reason for Consultation: On 01/07/24 @ 13:39 Lynn Carnes Wrote To Alicia Easley goals of care Attending Physician: Lynn Carnes MD History of Present Illness Antonio Seymour is an 83-year-old gentleman admitted 01/05/2024 status post fall. He had an unclear history of this fall, concerning for possible loss of consciousness and ending up on the floor approximately 15 feet from where he r ecalled to standing. He complained of left-sided chest pain on arrival and felt it was related to the fall. The fall occurred while he was walking into his house but he cannot recall what actually happened until he regained his consciousness. CAT scan of the head, face, cervical spine was done in the emergency department and demonstrated a left orbital floor fracture. ENT was evaluated and patient was started on Augmentin with plans to follow-up as an outpatient in ENT clinic. At baseline, he uses 2 L of nasal cannula oxygen due to his COPD. Through the course of this admission, leukocytosis of unclear etiology has been noted with WBCs of 21,000. His oral Augmentin was changed to IV Unasyn. Cultures are underway. He denies any active fever, chills, malaise. His pleuritic chest pain persists which is likely musculoskeletal in origin and related to his fall. It is reproducible over the left side. He is a known aspiration risk due to mucoid impaction of his bronchi. Remains on airway clearance therapies with incentive spirometry and flutter valve. His prior bronchoscopies did demonstrate pseudomonal cultures positive. With regards to the fall and loss of consciousness, EKG did not reveal any changes compared to his prior. 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 His last echo did not demonstrate any wall motion abnormalities or structural heart abnormalities. There are no orthostatic blood pressure changes being noted this admission. Antonio is seen bedside, no family present He is reclined in bed, no acute distress Allergies Allergy/AdvReac Type Severity Reaction Status Date / Time No Known Allergies Allergy Verified 01/05/24 15:15 Home Medications Medication Instructions Recorded Confirmed Type Oxygen Home #1 ea 05/19/22 11/04/23 Rx albuterol sulfate 90 mcg/actuation 2 inh inhalation QID PRN shortness 04/15/23 0 01/05/24 Rx aerosol inhaler of breath or wheezing #18 grams blood sugar diagnostic (OneTouch #200 ea 06/09/23 11/04/23 Rx Ultra Test strips) azelastine 137 mcg (0.1 %) nasal 1 spray intranasal BID #30 mL 07/02/23 01/05/24 Rx spray losartan 25 mg tablet 25 mg PO DAILY 07/04/23 01/05/24 History metformin 500 mg tablet,extended 1,000 mg PO BID 07/04/23 01/05/24 History release 24 hr aspirin 81 mg tablet,delayed 81 mg PO QAM 07/08/23 01/05/24 History release Oxygen Home #2 L 08/20/23 11/04/23 Rx levothyroxine 88 mcg tablet 88 mcg PO QAM #90 tabs 09/23/23 01/05/24 Rx mometasone-formoterol HFA 200 2 puff inhalation BID #13 grams 09/23/23 01/05/24 Rx mcg-5 mcg/actuation aerosol inhaler (Dulera) benzonatate 100 mg capsule 100 mg PO TID PRN cough #30 caps 10/09/23 01/05/24 Rx potassium chloride 20 mEq 20 meq PO DAILY #90 tabs 10/09/23 01/05/24 Rx tablet,extended release tiotropium bromide 2.5 2 puff inhalation DAILY #3 Inhalers 10/09/23 01/05/24 Rx mcg/actuation mist for inhalation (Spiriva Respimat) empagliflozin 25 mg tablet 25 mg PO QAM #90 tabs 10/21/23 01/05/24 Rx atorvastatin 20 mg tablet 20 mg PO QAM #90 tabs 12/29/23 01/05/24 Rx ipratropium 0.5 mg-albuterol 3 mg 3 ml inhalation Q4H PRN shortness 12/29/23 01/05/24 Rx (2.5 mg base)/3 mL nebulization of breath or wheezing #180 vials soln amoxicillin 875 mg-potassium 1 tab PO BID 7 days #13 tabs 01/04/24 01/05/24 Rx clavulanate 125 mg tablet Patient History Medical History Diplopia Dysphagia Actinic keratosis Required emergent intubation Pneumonia COPD, severe Tobacco abuse Neck pain Abnormal chest CT Pneumonia Severe protein-calorie malnutrition Pneumonia Hypersomnolence COPD with emphysema inhalers daily/prn, nebulizer prn COPD (chronic obstructive pulmonary disease) case management patient Acquired deviated nasal septum Chronic gout Frequent PVCs Incidental lung nodule, > 3mm and < 8mm Tobacco use Chronic diarrhea Surgical History Hx of vasectomy History of colonoscopy last 2019 History of Mohs micrographic surgery for skin cancer x3 History of wisdom tooth extraction History of bilateral cataract extraction History of appendectomy age 11 History of tonsillectomy Family History Other No family history of adverse response to anesthesia No family history of bleeding disorder Denies family history of Ovarian cancer Prostate cancer Myocardial infarction Breast cancer Colorectal cancer Social History Smoking Status: Former smoker Tobacco Type: Cigarettes Age Started Using Tobacco: 21; Age Quit Using Tobacco: 82; packs per day: 2; Second Hand Exposure: No; Do You Dip or Chew Tobacco: No; Hx Alcohol Use: No Hx Substance Use: No Preferred Language: Sinhala Communication Ability: Effective Visual Impairment: No Limitations Hearing Ability: Normal Film Processing Utility Worker Required: No Beliefs That Will Affect Care: None marital status: Single Current Living Situation: Alone current occupational status: retired How many Children do You have: 1 Feels Safe at Home: Yes Safety Concerns: Feels Safe At This Time Dental Care, Regularly: Yes Physical Activity Frequency: 1-2 Times per Week Seatbelt Use: always Sunscreen Use: No Assistive Devices: Oxygen - Continuous Review of Systems Review of Systems: All systems reviewed & are unremarkable except as noted in Subjective Physical Exam Physical Exam: Reclined in bed, no acute distress left eye with orbital ecchymoses and edema perrla neck supple, no stridor lungs diminished, faint crackles bilat, mild arrested inhalation with splinting of left chest wall s1s2, no gross JVD Abd distended, soft,non tender SINGER, no overt weakness AAOx3 friendly and cooperative with exam Results & Data Vital Signs (Past 12 Hours) Vital Signs Temp Pulse Pulse Resp BP Pulse Ox O2 Del Method 01/08/24 07:45 36.4 C L 65 18 134/84 96 Nasal Cannula 01/08/24 07:09 88 01/08/24 03:49 36.5 C 81 18 136/82 93 Nasal Cannula 01/07/24 23:52 36.7 C 84 18 145/87 H 94 Room Air O2 Flow Rate 01/08/24 07:45 2 01/08/24 07:09 01/08/24 03:49 2 01/07/24 23:52 Laboratory Results 01/08/24 01/08/24 01/07/24 Range/Units 08:19 06:09 20:19 WBC 17.48 H (4.8-10.8) K/ul RBC 6.00 (4.70-6.10) M/uL Hgb 17.2 (14.0-18.0) g/dl Hct 53.9 H (42.0-52.0) % MCV 89.8 (80.0-100.0) fL MCH 28.7 (25.0-34.0) pg MCHC 31.9 L (32.0-36.0) g/dL RDW Std Deviation 45.8 (36.4-46.3) fL RDW Coeff of Samantha 14.0 (11.5-14.5) % Plt Count 293 (130-400) K/uL MPV 10.3 (9.4-12.4) fL Immature Gran % (Auto) % Neut % (Auto) % Lymph % (Auto) % Baldwin % (Auto) % Eos % (Auto) % Baso % (Auto) % Neut # (Auto) (1.40-6.50) K/uL Lymph # (Auto) (1.20-3.40) K/uL Baldwin # (Auto) (0.11-0.59) K/uL Eos # (Auto) (0.00-0.50) K/uL Baso # (Auto) (0.00-0.20) K/uL Immature Gran # (Auto) (0.01-0.20) K/uL PT (9.0-12.0) Seconds INR (0.9-1.1) APTT (21-31) Seconds PTT Ratio Sodium 136 (136-145) mmol/L Potassium 4.3 (3.5-5.1) mmol/L Chloride 103 (98-107) mmol/L Carbon Dioxide 16 L (21-32) mmol/L Anion Gap 17 H (3-11) BUN 33 H (6-23) mg/dl Creatinine 0.82 (0.6-1.4) mg/dl Est Cr Clr Drug Dosing 67.2 ml/min Est GFR ( Amer) 95.4 ml/min Est GFR (Non-Af Amer) 82.4 ml/min BUN/Creatinine Ratio 40.2 H (10-20) Glucose 180 H (70-99(Fasting)) mg/dl POC Glucose 165 H 163 H (70-99) mg/dl Calcium 9.0 (8.6-10.3) mg/dl Total Bilirubin (0.2-1.0) mg/dl AST (13-39) U/L ALT (7-52) U/L Alkaline Phosphatase (34-104) U/L Troponin I High Sens (0-20) pg/ml Total Protein (6.0-8.3) gm/dl Albumin (3.4-5.0) gm/dl Globulin (2.5-4.0) gm/dl Albumin/Globulin Ratio (0.9-2) Procalcitonin (0-0.5) ng/ml 01/07/24 01/07/24 01/07/24 Range/Units 17:13 12:05 08:15 WBC (4.8-10.8) K/ul RBC (4.70-6.10) M/uL Hgb (14.0-18.0) g/dl Hct (42.0-52.0) % MCV (80.0-100.0) fL MCH (25.0-34.0) pg MCHC (32.0-36.0) g/dL RDW Std Deviation (36.4-46.3) fL RDW Coeff of Samantha (11.5-14.5) % Plt Count (130-400) K/uL MPV (9.4-12.4) fL Immature Gran % (Auto) % Neut % (Auto) % Lymph % (Auto) % Baldwin % (Auto) % Eos % (Auto) % Baso % (Auto) % Neut # (Auto) (1.40-6.50) K/uL Lymph # (Auto) (1.20-3.40) K/uL Baldwin # (Auto) (0.11-0.59) K/uL Eos # (Auto) (0.00-0.50) K/uL Baso # (Auto) (0.00-0.20) K/uL Immature Gran # (Auto) (0.01-0.20) K/uL PT (9.0-12.0) Seconds INR (0.9-1.1) APTT (21-31) Seconds PTT Ratio Sodium (136-145) mmol/L Potassium (3.5-5.1) mmol/L Chloride (98-107) mmol/L Carbon Dioxide (21-32) mmol/L Anion Gap (3-11) BUN (6-23) mg/dl Creatinine (0.6-1.4) mg/dl Est Cr Clr Drug Dosing ml/min Est GFR ( Amer) ml/min Est GFR (Non-Af Amer) ml/min BUN/Creatinine Ratio (10-20) Glucose (70-99(Fasting)) mg/dl POC Glucose 171 H 145 H 158 H (70-99) mg/dl Calcium (8.6-10.3) mg/dl Total Bilirubin (0.2-1.0) mg/dl AST (13-39) U/L ALT (7-52) U/L Alkaline Phosphatase (34-104) U/L Troponin I High Sens (0-20) pg/ml Total Protein (6.0-8.3) gm/dl Albumin (3.4-5.0) gm/dl Globulin (2.5-4.0) gm/dl Albumin/Globulin Ratio (0.9-2) Procalcitonin (0-0.5) ng/ml 01/07/24 01/06/24 01/06/24 Range/Units 06:17 20:29 17:06 WBC 21.40 H (4.8-10.8) K/ul RBC 5.78 (4.70-6.10) M/uL Hgb 16.8 (14.0-18.0) g/dl Hct 50.8 (42.0-52.0) % MCV 87.9 (80.0-100.0) fL MCH 29.1 (25.0-34.0) pg MCHC 33.1 (32.0-36.0) g/dL RDW Std Deviation 44.5 (36.4-46.3) fL RDW Coeff of Samantha 13.9 (11.5-14.5) % Plt Count 254 (130-400) K/uL MPV 10.9 (9.4-12.4) fL Immature Gran % (Auto) 0.7 % Neut % (Auto) 90.5 % Lymph % (Auto) 2.1 % Baldwin % (Auto) 6.4 % Eos % (Auto) 0.1 % Baso % (Auto) 0.2 % Neut # (Auto) 19.36 H (1.40-6.50) K/uL Lymph # (Auto) 0.45 L (1.20-3.40) K/uL Baldwin # (Auto) 1.38 H (0.11-0.59) K/uL Eos # (Auto) 0.03 (0.00-0.50) K/uL Baso # (Auto) 0.04 (0.00-0.20) K/uL Immature Gran # (Auto) 0.14 (0.01-0.20) K/uL PT (9.0-12.0) Seconds INR (0.9-1.1) APTT (21-31) Seconds PTT Ratio Sodium 134 L (136-145) mmol/L Potassium 4.3 (3.5-5.1) mmol/L Chloride 102 (98-107) mmol/L Carbon Dioxide 17 L (21-32) mmol/L Anion Gap 15 H (3-11) BUN 27 H (6-23) mg/dl Creatinine 0.63 (0.6-1.4) mg/dl Est Cr Clr Drug Dosing 87.5 ml/min Est GFR ( Amer) 106.4 ml/min Est GFR (Non-Af Amer) 91.8 ml/min BUN/Creatinine Ratio 42.9 H (10-20) Glucose 149 H (70-99(Fasting)) mg/dl POC Glucose 143 H 171 H (70-99) mg/dl Calcium 9.2 (8.6-10.3) mg/dl Total Bilirubin (0.2-1.0) mg/dl AST (13-39) U/L ALT (7-52) U/L Alkaline Phosphatase (34-104) U/L Troponin I High Sens (0-20) pg/ml Total Protein (6.0-8.3) gm/dl Albumin (3.4-5.0) gm/dl Globulin (2.5-4.0) gm/dl Albumin/Globulin Ratio (0.9-2) Procalcitonin (0-0.5) ng/ml 01/06/24 01/06/24 01/06/24 Range/Units 12:04 07:44 05:57 WBC (4.8-10.8) K/ul RBC (4.70-6.10) M/uL Hgb (14.0-18.0) g/dl Hct (42.0-52.0) % MCV (80.0-100.0) fL MCH (25.0-34.0) pg MCHC (32.0-36.0) g/dL RDW Std Deviation (36.4-46.3) fL RDW Coeff of Samantha (11.5-14.5) % Plt Count (130-400) K/uL MPV (9.4-12.4) fL Immature Gran % (Auto) % Neut % (Auto) % Lymph % (Auto) % Baldwin % (Auto) % Eos % (Auto) % Baso % (Auto) % Neut # (Auto) (1.40-6.50) K/uL Lymph # (Auto) (1.20-3.40) K/uL Baldwin # (Auto) (0.11-0.59) K/uL Eos # (Auto) (0.00-0.50) K/uL Baso # (Auto) (0.00-0.20) K/uL Immature Gran # (Auto) (0.01-0.20) K/uL PT (9.0-12.0) Seconds INR (0.9-1.1) APTT (21-31) Seconds PTT Ratio Sodium (136-145) mmol/L Potassium (3.5-5.1) mmol/L Chloride (98-107) mmol/L Carbon Dioxide (21-32) mmol/L Anion Gap (3-11) BUN (6-23) mg/dl Creatinine (0.6-1.4) mg/dl Est Cr Clr Drug Dosing ml/min Est GFR ( Amer) ml/min Est GFR (Non-Af Amer) ml/min BUN/Creatinine Ratio (10-20) Glucose (70-99(Fasting)) mg/dl POC Glucose 164 H 110 H (70-99) mg/dl Calcium (8.6-10.3) mg/dl Total Bilirubin (0.2-1.0) mg/dl AST (13-39) U/L ALT (7-52) U/L Alkaline Phosphatase (34-104) U/L Troponin I High Sens (0-20) pg/ml Total Protein (6.0-8.3) gm/dl Albumin (3.4-5.0) gm/dl Globulin (2.5-4.0) gm/dl Albumin/Globulin Ratio (0.9-2) Procalcitonin 0.02 (0-0.5) ng/ml 01/05/24 01/05/24 Range/Units 20:26 12:07 WBC 13.67 H (4.8-10.8) K/ul RBC 5.75 (4.70-6.10) M/uL Hgb 16.9 (14.0-18.0) g/dl Hct 50.8 (42.0-52.0) % MCV 88.3 (80.0-100.0) fL MCH 29.4 (25.0-34.0) pg MCHC 33.3 (32.0-36.0) g/dL RDW Std Deviation 43.7 (36.4-46.3) fL RDW Coeff of Samantha 13.5 (11.5-14.5) % Plt Count 226 (130-400) K/uL MPV 10.2 (9.4-12.4) fL Immature Gran % (Auto) 1.6 % Neut % (Auto) 87.2 % Lymph % (Auto) 5.5 % Baldwin % (Auto) 5.0 % Eos % (Auto) 0.2 % Baso % (Auto) 0.5 % Neut # (Auto) 11.92 H (1.40-6.50) K/uL Lymph # (Auto) 0.75 L (1.20-3.40) K/uL Baldwin # (Auto) 0.68 H (0.11-0.59) K/uL Eos # (Auto) 0.03 (0.00-0.50) K/uL Baso # (Auto) 0.07 (0.00-0.20) K/uL Immature Gran # (Auto) 0.22 H (0.01-0.20) K/uL PT 10.6 (9.0-12.0) Seconds INR 1.0 (0.9-1.1) APTT 25 (21-31) Seconds PTT Ratio 0.9 Sodium 139 (136-145) mmol/L Potassium 4.5 (3.5-5.1) mmol/L Chloride 103 (98-107) mmol/L Carbon Dioxide 26 (21-32) mmol/L Anion Gap 10 (3-11) BUN 18 (6-23) mg/dl Creatinine 0.69 (0.6-1.4) mg/dl Est Cr Clr Drug Dosing 79.9 ml/min Est GFR ( Amer) 102.5 ml/min Est GFR (Non-Af Amer) 88.4 ml/min BUN/Creatinine Ratio 26.1 H (10-20) Glucose 113 H (70-99(Fasting)) mg/dl POC Glucose 83 (70-99) mg/dl Calcium 9.7 (8.6-10.3) mg/dl Total Bilirubin 1.2 H (0.2-1.0) mg/dl AST 17 (13-39) U/L ALT 14 (7-52) U/L Alkaline Phosphatase 62 (34-104) U/L Troponin I High Sens 8.9 (0-20) pg/ml Total Protein 7.3 (6.0-8.3) gm/dl Albumin 4.7 (3.4-5.0) gm/dl Globulin 2.6 (2.5-4.0) gm/dl Albumin/Globulin Ratio 1.8 (0.9-2) Procalcitonin (0-0.5) ng/ml Diagnostic Findings Abdomen/Pelvis CT 01/05/24 12:06 CT abd pelvis IV con only CLINICAL HISTORY: Fall yesterday, upper back/L rib/L flank pain TECHNIQUE: Helical axial images of the abdomen and pelvis were obtained and displayed. Automated dose lowering techniques and/or adjustment according to patient size were utilized for this exam. This exam was performed with intravenous contrast. COMPARISON: Comparison is made to CT abdomen pelvis 10/07/2023 FINDINGS: Lower chest: Emphysema and bronchial wall thickening is seen. Liver: Unremarkable. No focal lesions are seen. Gallbladder and biliary tree: No calcified gallstones. Normal caliber wall. No intra- or extrahepatic biliary ductal dilation. Pancreas: Unremarkable, no focal lesions. Spleen: Splenule is incidentally noted. Adrenals: Unremarkable. Kidneys and ureters: Subcentimeter hypodensities are too small to characterize. Bladder: Diffuse homogeneous wall thickening is seen. Reproductive organs: Prostatomegaly is seen. Bowel: Diverticulosis is seen without evidence of diverticulitis. Small hiatal hernia is seen. Lymph nodes Retroperitoneal: Unremarkable. Pelvic: Unremarkable. Mesenteric: Unremarkable. Peritoneum: Normal. Vessels: Atherosclerotic calcifications are seen. Abdominal wall: Unremarkable. Bones: Degenerative changes in the visualized spine. IMPRESSION: No acute abnormalities and in particular no evidence of fracture. ACT 112: Negative or not required by law. Electronically signed by: Jorje Espinal M.D. 01/05/2024 2:[address] 01/05/24 12:[address] CONTRAST CT DOSE: HISTORY: Fall yesterday, upper back/L rib/L flank pain TECHNIQUE: Multiaxial CT images of the chest were performed following the intravenous administration of contrast. A dose lowering technique was utilized adhering to the principles of ALARA. COMPARISON: Chest CTA 12/12/2023. FINDINGS: Subtle deformity within the left anterior second through fifth ribs favor old, healed fractures. No definite acute fractures within the chest. Mild bronchial wall thickening most pronounced within the right lower lobe. Small amount of mucoid material within the right mainstem bronchus and right lower lobe bronchi with partial opacification of the distal right lower lobe bronchi. There are associated interstitial opacities within the base of the right lower lobe which have slightly progressed. There is an 11 mm subpleural nodule within the right lower lobe on image 173, unchanged. Mild interstitial thickening within the base of the left lower lobe, unchanged. This may be chronic. Moderate to severe emphysema again noted. No pneumothorax. No pleural effusions. There is 9 mm right thyroid nodule. This does not meet CT criteria for follow-up. Normal esophagus. The abdominal structures will be reported on the same day abdomen and pelvis CT. The heart is normal in size. Trace anterior pericardial fluid is noted. No mediastinal hematoma. Subcentimeter mediastinal and hilar lymph nodes do not meet CT criteria for pathologic involvement. Mild calcified plaque within the normal caliber thoracic aorta. Moderate coronary artery calcifications are noted. The central pulmonary arteries are patent. IMPRESSION: 1. Subtle deformity within the left anterior second through fifth ribs favor old, healed fractures. No definite acute fractures within the chest. 2. Emphysema. 3. An 11 mm subpleural nodule within the right lower lobe again noted. [address] follow-up recommended to ensure resolution and to the possibility of a developing neoplasm. 4. Small amount of mucoid material within the right mainstem bronchus and right lower lobe bronchi with partial opacification of the distal right lower lobe bronchi. There are associated interstitial opacities within the base of the right lower lobe which have slightly progressed. This suggests a mild interstitial pneumonitis and could be due to prior aspiration. ACT 112: Negative or not required by law. Electronically signed by: Shadi Lindsey M.D. 01/05/2024 1:[address] 01/05/24 12:48 CT head/brain wo con CLINICAL HISTORY: 83 years-old Male with Fall yesterday, L arm pain/feels weak. Acute head trauma status post fall TECHNIQUE: Multiple axial CT images of the head were obtained without contrast. A dose lowering technique was utilized adhering to the principles of ALARA. CT DOSE: 2791.68 mGy.cm COMPARISON: 01/04/2024 FINDINGS: The left orbital floor and left lamina papyracea fracture is better appreciated on the same day facial bone CT. Trace hemorrhage noted within the left maxillary sinus. There is left periorbital soft tissue swelling. Prior bilateral lens replacement. The calvarium and skull base are intact. There is no mass, hematoma, midline shift, acute infarct. White matter hypodensity is nonspecific but suggestive of microvascular ischemic change. The ventricles and sulci demonstrate mild age-related involutional changes. 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 IMPRESSION: 1. No acute infarct or intracranial hemorrhage. 2. The left orbital floor/lamina papyracea fractures are better appreciated on the 01/04/[address] ACT 112: Negative or not required by law. The above report was generated using voice recognition software. It may contain grammatical, syntax or spelling errors. Electronically signed by: Adeel Breen M.D. 01/05/2024 1:44 PM Shoulder X-Ray 01/05/24 14:30 XR shoulder LT min 2V routine HISTORY: 83 years-old Male L rib pain acute pain of the left shoulder and ribs COMPARISON: Chest CT of same day TECHNIQUE: 3 views of the left shoulder FINDINGS: Moderate glenohumeral and AC joint osteoarthritis. No acute fracture, dislocation or osseous erosion identified. The imaged lung holland appear clear. IMPRESSION: No acute fracture or dislocation. ACT 112: Negative or not required by law. The above report was generated using voice recognition software. It may contain grammatical, syntax or spelling errors. Electronically signed by: Adeel Breen M.D. 01/05/2024 4:04 PM PG Care Time/CCT Total # of Minutes Spent Total Time Spent with Patient: Total time spent is greater than 50% in coordination of care (as documented) at patient's floor/unit and/or counseling patient: I spent 85 minutes overall addressing this case: 15 min in medical data review/discussion with referring provider(s) and/or preparation for the visit 15 min in direct interaction with the patient/exam 30 min in Advance Care Planning/Goals of Care discussions as detailed above in note (must be >16min) 10 min in subsequent review and synthesis of assessment and plan 15 min communicating with other providers regarding the patient's case: primary [place] [address] IN/OBS CONSULT LVL 4,60M (25 - SIGNIFICANT, SEPARATELY IDENTIFIABLE ) Patient Type New Medical Decision Making High Complexity Diagnoses Pleuritic chest pain R07.81 Left-sided chest wall pain R07.89 Dyspnea and respiratory abnormalities R06.00; R06.89 Anxiety disorder due to general medical condition F06.4 Palliative care by specialist Z51.5 Advanced care planning/counseling discussion Z71.89
--- NOTE | 2024-01-08 11:33 | Hospitalist Progress Note ---
Date of Service January 08, 2024 Assessment & Plan (1) Fall: Plan: Patient is unclear and unsure of how he fell, he said he just blanked out and fell some distance from where he started. His EKG did not show any changes compared to the previous ones, only first- degree AV block Upon discharge patient will need at least a 30-day monitor Last 2D echo did not show any wall motion abnormalities or structural heart abnormalities. No orthostatic blood pressure changes here in the hospital. Physical therapy recommends SNF (2) Fracture of orbital floor: Plan: CT showed mildly displaced fracture of the orbital floor with some hemorrhage Augmentin BID Consult ENT (3) Leukocytosis: Plan: Etiology is unclear, WBC Is beginning to trend down Initially was on p.o. Augmentin, will change to IV Unasyn for now Continue to monitor cultures. However patient denies fevers or chills (4) Pleuritic chest pain: Plan: Suspected MSK related to his fall yesterday, pain is reproducible over the left scapula No new rib fractures seen on CT Pain control with acetaminophen 1 g p.o. TID, second line ibuprofen, third-line oxycodone (5) Mucoid impaction of bronchi: Plan: Known aspiration risk, continue aspiration precautions Incentive spirometer, flutter valve Sputum culture - prior bronchoscopy washing with pseudomonas (6) Type 2 diabetes mellitus with microalbuminuria: Plan: HbA1C 7.9 [12/13/23] Hold metformin due to IV contrast Hold empagliflozin due to hospital protocol for diabetes without heart failure Novolog: --Goal BSG Range: Low 110 mg/dL, High 140 mg/dL --Correction Factor: 45 mg/dL/unit No carb ratio --BSGs ACHS if eating, q6h if npo Add basal dosing if requiring frequent doses for correction (7) Chronic obstructive pulmonary disease: Plan: Some mild expiratory wheeze on exam Continue home inhalers Plan BPH - continue tamsulosin Hypothyroidism - continue levothyroxine, TSH normal in October COPD - continue usual maintenance inhalers Chronic respiratory failure - currently at baseline 2 L/min O2 VTE Prophylaxis - chemical deferred due to recent trauma Diet - T2DM, aspiration precautions Disposition - Physical therapy recommends SNF Admission and Anticipated Discharge Date Admission Date: January 06, 2024 Subjective Patient seen and examined, Agreeable to go to rehab, Denies headache Review of Systems Review of Systems: All systems reviewed are negative, apart from the ones contained in the history. Physical Exam Physical Exam: The patient is awake, alert and oriented 3, well developed and well nourished, normocephalic and atraumatic, lying in bed and in no acute distress. HEENT--Right periorbital ecchymosis Neck--supple. No JVD. No bruits. Thyroid normal, trachea midline, no adenopathy. Heart--normal S1 and S2. No murmurs, rubs or gallops. Lungs--clear bilaterally, no respiratory distress, no accessory muscle use. Abdomen--normal bowel sounds and soft. Extremities--no cyanosis or clubbing. No edema. Dermatologic--normal skin turgor, normal color, no abnormal lymph nodes, no rash. Neurologic--cranial nerves II through XII grossly intact. Rheumatologic--normal range of motion. Psychiatric--normal affect. Results & Data Results & Data Vital Signs (Past 12 Hours) Vital Signs Temp Pulse Pulse Resp BP Pulse Ox O2 Del Method 01/08/24 07:45 97.5 F L 65 18 134/84 96 Nasal Cannula 01/08/24 07:09 88 01/08/24 03:49 97.7 F 81 18 136/82 93 Nasal Cannula 01/07/24 23:52 98.1 F 84 18 145/87 H 94 Room Air O2 Flow Rate 01/08/24 07:45 2 01/08/24 07:09 01/08/24 03:49 2 01/07/24 23:52 PG Care Time/CCT Total # of Minutes Spent Total Time Spent with Patient: Total time spent is greater than 50% in coordination of care (as documented) at patient's floor/unit and/or counseling patient: Coding Level of Care Code 20843 SUB INP/OBS CARE 2/35MIN Diagnoses Fall, subsequent encounter W19.XXXD Encounter type: subsequent encounter Closed fracture of left orbital floor with routine healing, subsequent encounter S02.32XD Encounter type: subsequent encounter Fracture healing: with routine healing Fracture type: closed Laterality: left Leukocytosis D72.829 Pleuritic chest pain R07.81 Mucoid impaction of bronchi T17.500A Type 2 diabetes mellitus with microalbuminuria E11.29; R80.9 Simple chronic bronchitis J44.9 Time Spent (min) 35 (1) Fall Encounter type: subsequent encounter Qualified Code(s): W19.XXXD - Unspecified fall, subsequent encounter (2) Fracture of orbital floor Encounter type: subsequent encounter Fracture healing: with routine healing Fracture type: closed Laterality: left Qualified Code(s): S02.32XD - Fracture of orbital floor, left side, subsequent encounter for fracture with routine healing
[2024-01-08] MEDS: BENZONATATE 100 MG CAPSULE PO PRN (21:14)
[2024-01-09 06:23] LABS: Hematocrit (blood only) 49.9 % (42.0-52.0); Hemoglobin 16.9 g/dl (14.0-18.0); Mean Corpuscular Hemoglobin 29.3 pg (25.0-34.0); Mean Corpuscular Hgb Conc 33.9 g/dL (32.0-36.0); Mean Corpuscular Volume 86.6 fL (80.0-100.0); Mean Platelet Volume 10.5 fL (9.4-12.4); Platelet Count 294 K/uL (130-400); RDW Coefficient of Variation 13.8 % (11.5-14.5); RDW Standard Deviation 43.8 fL (36.4-46.3); Red Blood Count 5.76 M/uL (4.70-6.10); White Blood Count 11.58 K/ul (4.8-10.8)
--- NOTE | 2024-01-09 14:32 | Hospitalist Progress Note ---
Date of Service January 09, 2024 Assessment & Plan (1) Fall: Plan: Patient is unclear and unsure of how he fell, he said he just blanked out and fell some distance from where he started. His EKG did not show any changes compared to the previous ones, only first- degree AV block Upon discharge patient will need at least a 30-day monitor Last 2D echo did not show any wall motion abnormalities or structural heart abnormalities. No orthostatic blood pressure changes here in the hospital. Physical therapy recommends SNF (2) Fracture of orbital floor: Plan: CT showed mildly displaced fracture of the orbital floor with some hemorrhage No surgical plans from maxillofacial surgery (3) Leukocytosis: Plan: Etiology is unclear, WBC Is beginning to trend down, CRP is elevated Initially was on p.o. Augmentin, will Continue IV Unasyn for now Continue to monitor cultures. However patient denies fevers or chills (4) Pleuritic chest pain: Plan: Suspected MSK related to his fall yesterday, pain is reproducible over the left scapula No new rib fractures seen on CT Pain control with acetaminophen 1 g p.o. TID, second line ibuprofen, third-line oxycodone (5) Mucoid impaction of bronchi: Plan: Known aspiration risk, continue aspiration precautions Incentive spirometer, flutter valve Sputum culture - prior bronchoscopy washing with pseudomonas (6) Type 2 diabetes mellitus with microalbuminuria: Plan: HbA1C 7.9 [12/13/23] Hold metformin due to IV contrast Hold empagliflozin due to hospital protocol for diabetes without heart failure Novolog: --Goal BSG Range: Low 110 mg/dL, High 140 mg/dL --Correction Factor: 45 mg/dL/unit No carb ratio --BSGs ACHS if eating, q6h if npo Add basal dosing if requiring frequent doses for correction (7) Chronic obstructive pulmonary disease: Plan: Some mild expiratory wheeze on exam Continue home inhalers (8) Old lacunar stroke without late effect: Plan: As seen on CT scan done in this admission No residual effects. Plan BPH - continue tamsulosin Hypothyroidism - continue levothyroxine, TSH normal in October COPD - continue usual maintenance inhalers Chronic respiratory failure - currently at baseline 2 L/min O2 VTE Prophylaxis - chemical deferred due to recent trauma Diet - T2DM, aspiration precautions Disposition - Physical therapy recommends SNF Admission and Anticipated Discharge Date Admission Date: January 06, 2024 Subjective Patient seen and examined, Agreeable to go to rehab, Denies headache Review of Systems Review of Systems: All systems reviewed are negative, apart from the ones contained in the history. Physical Exam Physical Exam: The patient is awake, alert and oriented 3, well developed and well nourished, normocephalic and atraumatic, lying in bed and in no acute distress. HEENT--Right periorbital ecchymosis Neck--supple. No JVD. No bruits. Thyroid normal, trachea midline, no adenopathy. Heart--normal S1 and S2. No murmurs, rubs or gallops. Lungs--clear bilaterally, no respiratory distress, no accessory muscle use. Abdomen--normal bowel sounds and soft. Extremities--no cyanosis or clubbing. No edema. Dermatologic--normal skin turgor, normal color, no abnormal lymph nodes, no rash. Neurologic--cranial nerves II through XII grossly intact. Rheumatologic--normal range of motion. Psychiatric--normal affect. Results & Data Results & Data Vital Signs (Past 12 Hours) Vital Signs Temp Pulse Pulse Resp BP Pulse Ox O2 Del Method 01/09/24 12:53 84 01/09/24 11:49 98.1 F 84 16 149/82 H 95 Nasal Cannula 01/09/24 07:42 97.9 F 83 16 154/84 H 93 Nasal Cannula 01/09/24 07:32 Room Air 01/09/24 05:48 77 01/09/24 03:16 98.1 F 74 18 155/94 H 94 Room Air O2 Flow Rate 01/09/24 12:53 01/09/24 11:49 2.5 01/09/24 07:42 2.5 01/09/24 07:32 01/09/24 05:48 01/09/24 03:16 PG Care Time/CCT Total # of Minutes Spent Total Time Spent with Patient: Total time spent is greater than 50% in coordination of care (as documented) at patient's floor/unit and/or counseling patient: Coding Level of Care Code 52601 SUB INP/OBS CARE 2/35MIN Diagnoses Fall, subsequent encounter W19.XXXD Encounter type: subsequent encounter Closed fracture of left orbital floor with routine healing, subsequent encounter S02.32XD Encounter type: subsequent encounter Fracture healing: with routine healing Fracture type: closed Laterality: left Leukocytosis D72.829 Pleuritic chest pain R07.81 Mucoid impaction of bronchi T17.500A Type 2 diabetes mellitus with microalbuminuria E11.29; R80.9 Simple chronic bronchitis J44.9 Old lacunar stroke without late effect Z86.73 Time Spent (min) 35 (1) Fall Encounter type: subsequent encounter Qualified Code(s): W19.XXXD - Unspecified fall, subsequent encounter (2) Fracture of orbital floor Encounter type: subsequent encounter Fracture healing: with routine healing Fracture type: closed Laterality: left Qualified Code(s): S02.32XD - Fracture of orbital floor, left side, subsequent encounter for fracture with routine healing
[2024-01-10 07:27] LABS: Hematocrit (blood only) 46.9 % (42.0-52.0); Hemoglobin 15.9 g/dl (14.0-18.0); Mean Corpuscular Hemoglobin 29.2 pg (25.0-34.0); Mean Corpuscular Hgb Conc 33.9 g/dL (32.0-36.0); Mean Corpuscular Volume 86.1 fL (80.0-100.0); Mean Platelet Volume 10.3 fL (9.4-12.4); Platelet Count 312 K/uL (130-400); RDW Coefficient of Variation 13.9 % (11.5-14.5); RDW Standard Deviation 43.8 fL (36.4-46.3); Red Blood Count 5.45 M/uL (4.70-6.10); White Blood Count 10.65 K/ul (4.8-10.8)
[2024-01-10 07:36] LABS: BUN Creatinine Ratio 43.6 (10-20); C Reactive Protein 7.52 mg/dl (0-0.5); Calcium 8.8 mg/dl (8.6-10.3); Creatinine Clr Calc Pharmacy 100.2 ml/min; Est GFR (African American) 112.5 ml/min; Potassium 3.8 mmol/L (3.5-5.1)
[2024-01-10] MEDS: guaiFENesin/DEXTROM SYRUP 200MG/20MG 10ML UDC PO PRN (10:44)
[2024-01-10] MEDS: ALBUT/IPRATROP 3MG/0.5MG NEB 3 ML VIAL NEB SCH (10:46)
--- NOTE | 2024-01-10 11:13 | Hospitalist Progress Note ---
Date of Service January 10, 2024 Assessment & Plan (1) Fall: Plan: Patient is unclear and unsure of how he fell, he said he just blanked out and fell some distance from where he started. His EKG did not show any changes compared to the previous ones, only first- degree AV block Upon discharge patient will need at least a 30-day monitor Last 2D echo did not show any wall motion abnormalities or structural heart abnormalities. No orthostatic blood pressure changes here in the hospital. Physical therapy recommends SNF (2) Fracture of orbital floor: Plan: CT showed mildly displaced fracture of the orbital floor with some hemorrhage No surgical plans from maxillofacial surgery (3) Leukocytosis: Plan: WBC is now within normal limits No will discontinue IV Unasyn, transition to p.o. Augmentin. CRP is also trending down. (4) Chronic obstructive pulmonary disease: Plan: Some mild expiratory wheeze on exam Continue home inhalers (5) Pleuritic chest pain: Plan: Suspected MSK related to his fall yesterday, pain is reproducible over the left scapula No new rib fractures seen on CT Pain control with acetaminophen 1 g p.o. TID, second line ibuprofen, third-line oxycodone (6) Mucoid impaction of bronchi: Plan: Known aspiration risk, continue aspiration precautions Incentive spirometer, flutter valve Sputum culture - prior bronchoscopy washing with pseudomonas (7) Type 2 diabetes mellitus with microalbuminuria: Plan: HbA1C 7.9 [12/13/23] Hold metformin due to IV contrast Hold empagliflozin due to hospital protocol for diabetes without heart failure Novolog: --Goal BSG Range: Low 110 mg/dL, High 140 mg/dL --Correction Factor: 45 mg/dL/unit No carb ratio --BSGs ACHS if eating, q6h if npo Add basal dosing if requiring frequent doses for correction (8) Old lacunar stroke without late effect: Plan: As seen on CT scan done in this admission No residual effects. Plan BPH - continue tamsulosin Hypothyroidism - continue levothyroxine, TSH normal in October COPD - continue usual maintenance inhalers Chronic respiratory failure - currently at baseline 2 L/min O2 VTE Prophylaxis - chemical deferred due to recent trauma Diet - T2DM, aspiration precautions Disposition - Physical therapy recommends SNF Admission and Anticipated Discharge Date Admission Date: January 06, 2024 Subjective Patient seen and examined,Complains of cough, productive of scant sputum and also some shortness of breath and wheeze. Review of Systems Review of Systems: All systems reviewed are negative, apart from the ones contained in the history. Physical Exam Physical Exam: The patient is awake, alert and oriented 3, well developed and well nourished, normocephalic and atraumatic, lying in bed and in no acute distress. HEENT--Right periorbital ecchymosis Neck--supple. No JVD. No bruits. Thyroid normal, trachea midline, no adenopathy. Heart--normal S1 and S2. No murmurs, rubs or gallops. Lungs--Reduced and on auscultation, bibasilar wheeze Abdomen--normal bowel sounds and soft. Extremities--no cyanosis or clubbing. No edema. Dermatologic--normal skin turgor, normal color, no abnormal lymph nodes, no rash. Neurologic--cranial nerves II through XII grossly intact. Rheumatologic--normal range of motion. Psychiatric--normal affect. Results & Data Results & Data Vital Signs (Past 12 Hours) Vital Signs Temp Pulse Pulse Resp BP BP Pulse Ox 01/10/24 10:46 99 H 18 95 01/10/24 07:48 76 18 94 01/10/24 07:40 97.9 F 77 16 166/93 H 97 01/10/24 07:13 01/10/24 05:44 105 H 01/10/24 02:09 98.2 F 74 18 161/88 H 92 O2 Del Method O2 Flow Rate 01/10/24 10:46 Nasal Cannula 2 01/10/24 07:48 Nasal Cannula 2 01/10/24 07:40 Nasal Cannula 2 01/10/24 07:13 Nasal Cannula 2 01/10/24 05:44 01/10/24 02:09 Nasal Cannula 2 PG Care Time/CCT Total # of Minutes Spent Total Time Spent with Patient: Total time spent is greater than 50% in coordination of care (as documented) at patient's floor/unit and/or counseling patient: Coding Level of Care Code 62822 SUB INP/OBS CARE 2/35MIN Diagnoses Fall, subsequent encounter W19.XXXD Encounter type: subsequent encounter Closed fracture of left orbital floor with routine healing, subsequent encounter S02.32XD Encounter type: subsequent encounter Fracture healing: with routine healing Fracture type: closed Laterality: left Leukocytosis D72.829 Simple chronic bronchitis J44.9 Pleuritic chest pain R07.81 Mucoid impaction of bronchi T17.500A Type 2 diabetes mellitus with microalbuminuria E11.29; R80.9 Old lacunar stroke without late effect Z86.73 Time Spent (min) 35 (1) Fall Encounter type: subsequent encounter Qualified Code(s): W19.XXXD - Un specified fall, subsequent encounter (2) Fracture of orbital floor Encounter type: subsequent encounter Fracture healing: with routine healing Fracture type: closed Laterality: left Qualified Code(s): S02.32XD - Fracture of orbital floor, left side, subsequent encounter for fracture with routine healing
[2024-01-11 06:54] LABS: Hematocrit (blood only) 45.4 % (42.0-52.0); Mean Corpuscular Hemoglobin 29.3 pg (25.0-34.0); Mean Corpuscular Volume 88.7 fL (80.0-100.0); Platelet Count 298 K/uL (130-400); RDW Coefficient of Variation 13.6 % (11.5-14.5); RDW Standard Deviation 44.2 fL (36.4-46.3); Red Blood Count 5.12 M/uL (4.70-6.10); White Blood Count 9.16 K/ul (4.8-10.8)
[2024-01-11 07:10] LABS: BUN Creatinine Ratio 28.9 (10-20); C Reactive Protein 3.55 mg/dl (0-0.5); Calcium 8.7 mg/dl (8.6-10.3); Est GFR (African American) 130.9 ml/min; Potassium 3.7 mmol/L (3.5-5.1)
[2024-01-11] MEDS: AMOXICILLIN/CLAVULANATE 875 MG TAB PO SCH (08:12)
--- NOTE | 2024-01-11 11:04 | XRay Report ---
XR chest 1V portable HISTORY: cough COMPARISON: Chest and bilateral rib series 01/04/2024. FINDINGS: No pneumothorax. The cardiac silhouette is normal in size. Mild diffuse interstitial thicke shamika persists and is likely chronic. Patchy right basilar airspace opacities have progressed and like ly represents a pneumonia. No evidence for pulmonary edema. No pleural effusions. IMPRESSION: 1. Patchy right basilar airspace opacities have progressed and likely represents a pneumonia. This co uld be due to aspiration. 2. Chronic interstitial thickening persists. ACT 112: Negative or not required by law. Electronically signed by: Shadi Lindsey M.D. 01/11/2024 11:03 AM
--- NOTE | 2024-01-11 13:14 | Hospitalist Progress Note ---
Date of Service January 11, 2024 Assessment & Plan (1) Fall: Plan: Patient is unclear and unsure of how he fell, he said he just blanked out and fell some distance from where he started. His EKG did not show any changes compared to the previous ones, only first- degree AV block Upon discharge patient will need at least a 30-day monitor Last 2D echo did not show any wall motion abnormalities or structural heart abnormalities. No orthostatic blood pressure changes here in the hospital. Physical therapy recommends SNF (2) Aspiration pneumonia: Plan: Patient is always known to be at risk for aspiration, has had prior bronchoscopy washings with Pseudomonas for his mucoid impaction of bronchi. Continues to cough Chest x-ray done shows evidence of possible aspiration Speech evaluation pending Continue empiric IV Zosyn While in hospital, can transition to p.o. Augmentin upon discharge. (3) Fracture of orbital floor: Plan: CT showed mildly displaced fracture of the orbital floor with some hemorrhage No surgical plans from maxillofacial surgery (4) Leukocytosis: Plan: WBC is now within normal limits Transitioned to IV Zosyn to cover for aspiration pneumonia. CRP is also trending down. (5) Chronic obstructive pulmonary disease: Plan: Some mild expiratory wheeze on exam Continue home inhalers (6) Pleuritic chest pain: Plan: Suspected MSK related to his fall yesterday, pain is reproducible over the left scapula No new rib fractures seen on CT Pain control with acetaminophen 1 g p.o. TID, second line ibuprofen, third-line oxycodone (7) Mucoid impaction of bronchi: Plan: Known aspiration risk, continue aspiration precautions Incentive spirometer, flutter valve Sputum culture - prior bronchoscopy washing with pseudomonas (8) Type 2 diabetes mellitus with microalbuminuria: Plan: HbA1C 7.9 [12/13/23] Hold metformin due to IV contrast Hold empagliflozin due to hospital protocol for diabetes without heart failure Novolog: --Goal BSG Range: Low 110 mg/dL, High 140 mg/dL --Correction Factor: 45 mg/dL/unit No carb ratio --BSGs ACHS if eating, q6h if npo Add basal dosing if requiring frequent doses for correction (9) Old lacunar stroke without late effect: Plan: As seen on CT scan done in this admission No residual effects. Plan BPH - continue tamsulosin Hypothyroidism - continue levothyroxine, TSH normal in October COPD - continue usual maintenance inhalers Chronic respiratory failure - currently at baseline 2 L/min O2 VTE Prophylaxis - chemical deferred due to recent trauma Diet - T2DM, aspiration precautions Disposition - Physical therapy recommends SNF Admission and Anticipated Discharge Date Admission Date: January 06, 2024 Subjective Patient seen and examined,Complains of cough, productive of scant sputum and also some shortness of breath and wheeze. Review of Systems Review of Systems: All systems reviewed are negative, apart from the ones contained in the history. Physical Exam Physical Exam: The patient is awake, alert and oriented 3, well developed and well nourished, normocephalic and atraumatic, lying in bed and in no acute distress. HEENT--Right periorbital ecchymosis Neck--supple. No JVD. No bruits. Thyroid normal, trachea midline, no adenopathy. Heart--normal S1 and S2. No murmurs, rubs or gallops. Lungs--Reduced and on auscultation, bibasilar wheeze Abdomen--normal bowel sounds and soft. Extremities--no cyanosis or clubbing. No edema. Dermatologic--normal skin turgor, normal color, no abnormal lymph nodes, no rash. Neurologic--cranial nerves II through XII grossly intact. Rheumatologic--normal range of motion. Psychiatric--normal affect. Results & Data Results & Data Vital Signs (Past 12 Hours) Vital Signs Temp Pulse Pulse Resp BP Pulse Ox O2 Del Method 01/11/24 11:19 98.1 F 81 16 129/76 94 Nasal Cannula 01/11/24 11:00 85 18 95 Nasal Cannula 01/11/24 09:32 Nasal Cannula 01/11/24 07:51 97.7 F 75 17 130/83 94 Nasal Cannula 01/11/24 07:04 95 H 01/11/24 06:58 68 17 97 Nasal Cannula 01/11/24 03:06 97.7 F 94 H 16 147/74 H 95 Nasal Cannula O2 Flow Rate 01/11/24 11:19 2 01/11/24 11:00 2 01/11/24 09:32 2 01/11/24 07:51 2 01/11/24 07:04 01/11/24 06:58 2 01/11/24 03:06 2 PG Care Time/CCT Total # of Minutes Spent Total Time Spent with Patient: Total time spent is greater than 50% in coordination of care (as documented) at patient's floor/unit and/or counseling patient: Coding Level of Care Code 31109 SUB INP/OBS CARE 2/35MIN Diagnoses Fall, subsequent encounter W19.XXXD Encounter type: subsequent encounter Aspiration pneumonia J69.0 Closed fracture of left orbital floor with routine healing, subsequent encounter S02.32XD Encounter type: subsequent encounter Fracture healing: with routine healing Fracture type: closed Laterality: left Leukocytosis D72.829 Simple chronic bronchitis J44.9 Pleuritic chest pain R07.81 Mucoid impaction of bronchi T17.500A Type 2 diabetes mellitus with microalbuminuria E11.29; R80.9 Old lacunar stroke without late effect Z86.73 Time Spent (min) 35 (1) Fall Encounter type: subsequent encounter Qualified Code(s): W19.XXXD - Unspecified fall, subsequent encounter (3) Fracture of orbital floor Encounter type: subsequent encounter Fracture healing: with routine healing Fracture type: closed Laterality: left Qualified Code(s): S02.32XD - Fracture of orbital floor, left side, subsequent encounter for fracture with routine healing
[2024-01-11] MEDS: PIPERACILLIN/TAZOBACTAM 4.5 GM in DEXTROSE 5% MINI-B 100 ML IV ONE (14:00)
[2024-01-11] MEDS: PIPERACILLIN/TAZOBACTAM 4.5 GM in DEXTROSE 5% MINI-B 100 ML IV SCH (20:02)
[2024-01-11] MEDS: MELATONIN 3 MG TAB PO SCH (20:02)
[2024-01-12 07:54] LABS: Hematocrit (blood only) 45.8 % (42.0-52.0); Hemoglobin 15.2 g/dl (14.0-18.0); Mean Corpuscular Hemoglobin 29.2 pg (25.0-34.0); Mean Corpuscular Hgb Conc 33.2 g/dL (32.0-36.0); Mean Corpuscular Volume 87.9 fL (80.0-100.0); Mean Platelet Volume 9.8 fL (9.4-12.4); Platelet Count 313 K/uL (130-400); RDW Coefficient of Variation 13.5 % (11.5-14.5); RDW Standard Deviation 43.8 fL (36.4-46.3); Red Blood Count 5.21 M/uL (4.70-6.10); White Blood Count 11.04 K/ul (4.8-10.8)
[2024-01-12 08:19] LABS: BUN Creatinine Ratio 16.3 (10-20); C Reactive Protein 2.8 mg/dl (0-0.5); Calcium 8.9 mg/dl (8.6-10.3); Creatinine Clr Calc Pharmacy 112.4 ml/min; Est GFR (African American) 117.9 ml/min; Est GFR (Non-African American) 101.8 ml/min; Potassium 3.5 mmol/L (3.5-5.1)
--- NOTE | 2024-01-12 17:04 | Hospitalist Progress Note ---
Date of Service January 12, 2024 Assessment & Plan (1) Fall: Plan: Patient is unclear and unsure of how he fell, he said he just blanked out and fell some distance from where he started. His EKG did not show any changes compared to the previous ones, only first- degree AV block. no events on telemetry Upon discharge patient will need a 30-day monitor - made referral Last 2D echo did not show any wall motion abnormalities or structural heart abnormalities. No orthostatic blood pressure changes here in the hospital. Physical therapy recommends rehab (2) Aspiration pneumonia: Plan: Patient is always known to be at risk for aspiration, has had prior bronchoscopy washings with Pseudomonas for his mucoid impaction of bronchi. Continues to cough Chest x-ray done shows evidence of possible aspiration Speech evaluation completed last admission - decision was for permissive aspiration, reviewed ST recommendations for discharge from last note Continue empiric IV Zosyn While in hospital, can transition to p.o. Augmentin upon discharge (day 2/5-7). Procal was negative on admission. (3) Fracture of orbital floor: Plan: CT showed mildly displaced fracture of the orbital floor with some hemorrhage No surgical plans from maxillofacial surgery (4) Leukocytosis: Plan: WBC is now within normal limits Transitioned to IV Zosyn to cover for aspiration pneumonia. CRP is also trending down. (5) Chronic obstructive pulmonary disease: Plan: Some mild expiratory wheeze on exam Continue home inhalers Chronic hypoxic respiratory failure on 2L home O2, currently at baseline (6) Pleuritic chest pain: Plan: MSK related to his fall, pain is reproducible over the left scapula No new rib fractures seen on CT Pain control with acetaminophen 1 g p.o. TID, second line ibuprofen, third-line oxycodone (7) Mucoid impaction of bronchi: Plan: Known aspiration risk, continue aspiration precautions Incentive spirometer, flutter valve Sputum culture - prior bronchoscopy washing with pseudomonas (8) Type 2 diabetes mellitus with microalbuminuria: Plan: HbA1C 7.9 [12/13/23] Hold metformin due to IV contrast Hold empagliflozin due to hospital protocol for diabetes without heart failure Novolog: --Goal BSG Range: Low 110 mg/dL, High 140 mg/dL --Correction Factor: 45 mg/dL/unit No carb ratio --BSGs ACHS if eating, q6h if npo Add basal dosing glargine 5u HS (9) Old lacunar stroke without late effect: Plan: As seen on CT scan done in this admission No residual effects. Plan BPH - continue tamsulosin Hypothyroidism - continue levothyroxine, TSH normal in October COPD - continue usual maintenance inhalers Chronic respiratory failure - currently at baseline 2 L/min O2 VTE Prophylaxis - chemical deferred due to recent trauma Diet - T2DM, aspiration precautions Disposition - Physical therapy recommends rehab, today he states he plans to return home and his ex has come to [employer] to stay with him and help him out at home Admission and Anticipated Discharge Date Admission Date: January 06, 2024 Subjective doing okay feels stronger and at this point plans to return home with assistance from his ex who is coming to [facility] to help him no facial or eye pain remains with dyspnea on exertion which is his baseline related to COPD, continues to have frequent loose cough Physical Exam 2 Physical Exam: PHYSICAL EXAMINATION Last 24h vital signs reviewed, see documentation in flowsheet General: comfortable appearing, no distress HEENT: ecchymosis below left eye, pupils round and equal, sclerae anicteric, no conjunctival injection, moist mucus membranes Lungs: Normal respiratory effort. coarse breath sounds scattered throughout all holland anteriorly and posteriorly bilaterally. No RRW. frequent loose cough Heart: Regular rate and rhythm, no murmurs. No JVD Abdomen: Soft, nontender, nondistended. Bowel sounds present. Extremities: Warm, dry, well-perfused. No extremity edema. Neuro: Alert and oriented x 4, face symmetric, moves 4 extremities well Psych: Normal affect and behavior Results & Data Results & Data Vital Signs (Past 12 Hours) Vital Signs Temp Pulse Pulse Resp BP Pulse Ox O2 Del Method 01/12/24 15:53 82 18 96 Nasal Cannula 01/12/24 14:56 37.3 C 76 17 143/93 H 95 Nasal Cannula 01/12/24 14:35 89 01/12/24 11:17 86 18 95 Nasal Cannula 01/12/24 10:58 37.1 C 82 18 121/75 97 Nasal Cannula 01/12/24 07:31 81 18 95 Nasal Cannula 01/12/24 07:25 36.5 C 73 17 143/91 H 95 Nasal Cannula 01/12/24 07:16 Nasal Cannula 01/12/24 06:49 74 O2 Flow Rate 01/12/24 15:53 2 01/12/24 14:56 2 01/12/24 14:35 01/12/24 11:17 2 01/12/24 10:58 2 01/12/24 07:31 2 01/12/24 07:25 2 01/12/24 07:16 2 01/12/24 06:49 Laboratory Results 01/12/24 07:16 01/12/24 07:16 PG Care Time/CCT Total # of Minutes Spent Total Time Spent with Patient: Total time spent is greater than 50% in coordination of care (as documented) at patient's floor/unit and/or counseling patient: Coding Level of Care Code 01693 SUB INP/OBS CARE 2MIN Diagnoses Fall, subsequent encounter W19.XXXD Encounter type: subsequent encounter Aspiration pneumonia J69.0 Closed fracture of left orbital floor with routine healing, subsequent encounter S02.32XD Encounter type: subsequent encounter Fracture healing: with routine healing Fracture type: closed Laterality: left Leukocytosis D72.829 Simple chronic bronchitis J44.9 Pleuritic chest pain R07.81 Mucoid impaction of bronchi T17.500A Type 2 diabetes mellitus with microalbuminuria E11.29; R80.9 Old lacunar stroke without late effect Z86.73 (1) Fall Encounter type: subsequent encounter Qualified Code(s): W19.XXXD - Unspecified fall, subsequent encounter (3) Fracture of orbital floor Encounter type: subsequent encounter Fracture healing: with routine healing Fracture type: closed Laterality: left Qualified Code(s): S02.32XD - Fracture of orbital floor, left side, subsequent encounter for fracture with routine healing
[2024-01-12] MEDS: LANTUS PER UNIT CHARGE SQ SCH (20:33)
[2024-01-13 07:24] VITALS: RESP 18
[2024-01-13 10:55] VITALS: PULSE 83; TEMP 98.4; O2SAT 91
[2024-01-13 13:44] VITALS: BP 158/79
--- NOTE | 2024-01-13 18:35 | Discharge Summary ---
Discharge Summary Date of Service January 13, 2024 Principal Dx & Hospital Course #1 = Principal Diagnosis (1) Fall: Patient is unclear and unsure of how he fell, he said he just blanked out and fell some distance from where he started. His EKG did not show any changes compared to the previous ones, only first- degree AV block. no events on telemetry Upon discharge patient will need a 30-day monitor - made referral Last 2D echo did not show any wall motion abnormalities or structural heart abnormalities. No orthostatic blood pressure changes here in the hospital. Physical therapy recommended rehab, which we pursued however he did refuse this and improved enough to where he was safe for discharge home with home health (2) Aspiration pneumonia: Patient is always known to be at risk for aspiration, has had prior bronchoscopy washings with Pseudomonas for his mucoid impaction of bronchi. Continues to cough Chest x-ray done shows evidence of possible aspiration Speech evaluation completed last admission with recommendations given 01/06 treated with pip-tazo while in hospital and transition to amoxicillin/clavulanate to complete 7-day course. Procal was negative on admission. added saline nebulizers to help with his mucus clearance, continue flutter valve, incentive spirometer at home (3) Fracture of orbital floor: CT showed mildly displaced fracture of the orbital floor with some hemorrhage maxillofacial surgery consulted, Antonio is asymptomatic does not require surgery for this (4) Chronic obstructive pulmonary disease: Some mild expiratory wheeze on exam, in exacerbation did not require steroids Continue home inhalers Chronic hypoxic respiratory failure on 2L home O2, currently at baseline (5) Pleuritic chest pain: MSK related to his fall, pain is reproducible over the left scapula No new rib fractures seen on CT Pain control with acetaminophen 1 g p.o. TID, second line ibuprofen, Lidoderm patches (6) Mucoid impaction of bronchi: Incentive spirometer, flutter valve, added saline nebulizer Sputum culture - prior bronchoscopy washing with pseudomonas. repeat sputum culture this admission was negative/contaminated with epithelial cells (7) Type 2 diabetes mellitus with microalbuminuria: HbA1C 7.9 [12/13/23] resume home regimen (8) Old lacunar stroke without late effect: As seen on CT scan done in this admission No residual effects. Plan BPH - continue tamsulosin Hypothyroidism - continue levothyroxine, TSH normal in October COPD - continue usual maintenance inhalers Chronic respiratory failure - currently at baseline 2 L/min O2 overall his pulmonary status is quite poor, he is DNR/DNI prefers limited interventions, he has follow-up with palliative care Dr. Sharma on 01/20 in the office Notes For Next Care Provider has palliative care follow-up next week Medication Changes From Visit added saline nebulizers to help with mucus clearance, he does take [id number] Mucinex Admission HPI Per Admitting Provider Antonio Seymour is an 83 year old male who presents to the ER with left sided chest pain. This started following a fall yesterday. He fall occurred while walking into his house. He does not remember exactly what happened but suddenly found himself staggering all over the place and the last thing he remembers was hitting the ground approximately 15 to 20 feet from where he was originally started. He thinks he lost consciousness. He was seen in the emergency room yesterday with CT head, face, cervical spine showed a left orbital floor fracture. Patient was discussed with ENT and he was started on Augmentin with ENT follow-up as an outpatient. After discharge from the emergency room his left-sided chest pain became more apparent that was much worse when he tried going to sleep. It is worse on coughing (he has a chronic cough no worse than usual), moving or deep breathing. Left-sided chest radiating to the back and shoulder. He is on 2LPM O2 at baseline due to COPD. Discharge Exam PHYSICAL EXAMINATION Last 24h vital signs reviewed, see documentation in flowsheet General: comfortable appearing, no distress HEENT: ecchymosis below left eye, pupils round and equal, sclerae anicteric, no conjunctival injection, moist mucus membranes Lungs: Normal respiratory effort. course scattered breath sounds throughout, no wheezing. frequent loose cough, nonproductive Heart: Regular rate and rhythm, no murmurs. No JVD Abdomen: Soft, nontender, nondistended. Bowel sounds present. Extremities: Warm, dry, well-perfused. No extremity edema. Neuro: Alert and oriented x 4, face symmetric, moves 4 extremities well Psych: Normal affect and behavior Updated Medication List Medication Instructions Recorded Confirmed Type Oxygen Home #1 ea 05/19/22 11/04/23 Rx albuterol sulfate 90 mcg/actuation 2 inh inhalation QID PRN shortness 04/15/23 01/05/24 Rx aerosol inhaler of breath or wheezing #18 grams blood sugar diagnostic (OneTouch #200 ea 06/09/23 11/04/23 Rx Ultra Test strips) azelastine 137 mcg (0.1 %) nasal 1 spray intranasal BID #30 mL 07/02/23 01/05/24 Rx spray losartan 25 mg tablet 25 mg PO DAILY 07/04/23 01/05/24 History metformin 500 mg tablet,extended 1,000 mg PO BID 07/04/23 01/05/24 History release 24 hr aspirin 81 mg tablet,delayed 81 mg PO QAM 07/08/23 01/05/24 History release Oxygen Home #2 L 08/20/23 11/04/23 Rx levothyroxine 88 mcg tablet 88 mcg PO QAM #90 tabs 09/23/23 01/05/24 Rx mometasone-formoterol HFA 200 2 puff inhalation BID #13 grams 09/23/23 01/05/24 Rx mcg-5 mcg/actuation aerosol inhaler (Dulera) benzonatate 100 mg capsule 100 mg PO TID PRN cough #30 caps 10/09/23 01/05/24 Rx potassium chloride 20 mEq 20 meq PO DAILY #90 tabs 10/09/23 01/05/24 Rx tablet,extended release tiotropium bromide 2.5 2 puff inhalation DAILY #3 Inhalers 10/09/23 01/05/24 Rx mcg/actuation mist for inhalation (Spiriva Respimat) empagliflozin 25 mg tablet 25 mg PO QAM #90 tabs 10/21/23 01/05/24 Rx atorvastatin 20 mg tablet 20 mg PO QAM #90 tabs 12/29/23 01/05/24 Rx ipratropium 0.5 mg-albuterol 3 mg 3 ml inhalation Q4H PRN shortness 12/29/23 01/05/24 Rx (2.5 mg base)/3 mL nebulization of breath or wheezing #180 vials soln amoxicillin 875 mg-potassium 1 tab PO BID #9 tabs 01/13/24 Rx clavulanate 125 mg tablet benzonatate 100 mg capsule 100 mg PO TID PRN cough #30 caps 01/13/24 Rx Hospital Stay Data Consultations 01/05/24 14:38 ED Decision to Admit Stat 01/05/24 19:01 Consult Otolaryngology (Head and Neck) Routine 01/07/24 13:38 Consult Palliative Care Routine Diagnostic Imagining Performed 01/05/24 12:06 CT abd pelvis IV con only Stat CT chest diagnostic w con Stat 01/05/24 12:48 CT head/brain wo con Stat Abdomen/Pelvis CT 01/05/24 12:06 CT abd pelvis IV con only CLINICAL HISTORY: Fall yesterday, upper back/L rib/L flank pain TECHNIQUE: Helical axial images of the abdomen and pelvis were obtained and displayed. Automated dose lowering techniques and/or adjustment according to patient size were utilized for this exam. This exam was performed with intravenous contrast. COMPARISON: Comparison is made to CT abdomen pelvis 10/07/2023 FINDINGS: Lower chest: Emphysema and bronchial wall thickening is seen. Liver: Unremarkable. No focal lesions are seen. Gallbladder and biliary tree: No calcified gallstones. Normal caliber wall. No intra- or extrahepatic biliary ductal dilation. Pancreas: Unremarkable, no focal lesions. Spleen: Splenule is incidentally noted. Adrenals: Unremarkable. Kidneys and ureters: Subcentimeter hypodensities are too small to characterize. Bladder: Diffuse homogeneous wall thickening is seen. Reproductive organs: Prostatomegaly is seen. Bowel: Diverticulosis is seen without evidence of diverticulitis. Small hiatal hernia is seen. Lymph nodes Retroperitoneal: Unremarkable. Pelvic: Unremarkable. Mesenteric: Unremarkable. Peritoneum: Normal. Vessels: Atherosclerotic calcifications are seen. Abdominal wall: Unremarkable. Bones: Degenerative changes in the visualized spine. IMPRESSION: No acute abnormalities and in particular no evidence of fracture. ACT 112: Negative or not required by law. Electronically signed by: Jorje Espinal M.D. 01/05/2024 2:[address] 01/05/24 12:[address] CONTRAST CT DOSE: HISTORY: Fall yesterday, upper back/L rib/L flank pain TECHNIQUE: Multiaxial CT images of the chest were performed following the intravenous administration of contrast. A dose lowering technique was utilized adhering to the principles of ALARA. COMPARISON: Chest CTA 12/12/2023. FINDINGS: Subtle deformity within the left anterior second through fifth ribs favor old, healed fractures. No definite acute fractures within the chest. Mild bronchial wall thickening most pronounced within the right lower lobe. Small amount of mucoid material within the right mainstem bronchus and right lower lo be bronchi with partial opacification of the distal right lower lobe bronchi. There are associated interstitial opacities within the base of the right lower lobe which have slightly progressed. There is an 11 mm subpleural nodule within the right lower lobe on image 173, unchanged. Mild interstitial thickening within the base of the left lower lobe, unchanged. This may be chronic. Moderate to severe emphysema again noted. No pneumothorax. No pleural effusions. There is 9 mm right thyroid nodule. This does not meet CT criteria for follow-up. Normal esophagus. The abdominal structures will be reported on the same day abdomen and pelvis CT. The heart is normal in size. Trace anterior pericardial fluid is noted. No mediastinal hematoma. Subcentimeter mediastinal and hilar lymph nodes do not meet CT criteria for pathologic involvement. Mild calcified plaque within the normal caliber thoracic aorta. Moderate coronary artery calcifications are noted. The central pulmonary arteries are patent. IMPRESSION: 1. Subtle deformity within the left anterior second through fifth ribs favor old, healed fractures. No definite acute fractures within the chest. 2. Emphysema. 3. An 11 mm subpleural nodule within the right lower lobe again noted. [address] follow-up recommended to ensure resolution and to the possibility of a developing neoplasm. 4. Small amount of mucoid material within the right mainstem bronchus and right lower lobe bronchi with partial opacification of the distal right lower lobe bronchi. There are associated interstitial opacities within the base of the right lower lobe which have slightly progressed. This suggests a mild interstitial pneumonitis and could be due to prior aspiration. ACT 112: Negative or not required by law. Electronically signed by: Shadi Lindsey M.D. 01/05/2024 1:[address] 01/05/24 12:48 CT head/brain wo con CLINICAL HISTORY: 83 years-old Male with Fall yesterday, L arm pain/feels weak. Acute head trauma status post fall TECHNIQUE: Multiple axial CT images of the head were obtained without contrast. A dose lowering technique was utilized adhering to the principles of ALARA. CT DOSE: 2791.68 mGy.cm COMPARISON: 01/04/2024 FINDINGS: The left orbital floor and left lamina papyracea fracture is better appreciated on the same day facial bone CT. Trace hemorrhage noted within the left maxillary sinus. There is left periorbital soft tissue swelling. Prior bilateral lens replacement. The calvarium and skull base are intact. There is no mass, hematoma, midline shift, acute infarct. White matter hypodensity is nonspecific but suggestive of microvascular ischemic change. The ventricles and sulci demonstrate mild age-related involutional changes. 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 IMPRESSION: 1. No acute infarct or intracranial hemorrhage. 2. The left orbital floor/lamina papyracea fractures are better appreciated on the 01/04/[address] ACT 112: Negative or not required by law. The above report was generated using voice recognition software. It may contain grammatical, syntax or spelling errors. Electronically signed by: Adeel Breen M.D. 01/05/2024 1:44 PM Shoulder X-Ray 01/05/24 14:30 XR shoulder LT min 2V routine HISTORY: 83 years-old Male L rib pain acute pain of the left shoulder and ribs COMPARISON: Chest CT of same day TECHNIQUE: 3 views of the left shoulder FINDINGS: Moderate glenohumeral and AC joint osteoarthritis. No acute fracture, dislocation or osseous erosion identified. The imaged lung holland appear clear. IMPRESSION: No acute fracture or dislocation. ACT 112: Negative or not required by law. The above report was generated using voice recognition software. It may contain grammatical, syntax or spelling errors. Electronically signed by: Adeel Breen M.D. 01/05/2024 4:04 PM Chest X-Ray 01/11/24 10:07 XR chest 1V portable HISTORY: cough COMPARISON: Chest and bilateral rib series 01/04/2024. FINDINGS: No pneumothorax. The cardiac silhouette is normal in size. Mild diffuse interstitial thickening persists and is likely chronic. Patchy right basilar airspace opacities have progressed and likely represents a pneumonia. No evidence for pulmonary edema. No pleural effusions. IMPRESSION: 1. Patchy right basilar airspace opacities have progressed and likely represents a pneumonia. This could be due to aspiration. 2. Chronic interstitial thickening persists. ACT 112: Negative or not required by law. Electronically signed by: Shadi Lindsey M.D. 01/11/2024 11:03 AM Pending Results Patient Have Any Pending Studies at Discharge: No Discharge Instructions Given to Patient (Per Discharging Provider) For your left orbital floor fracture - this should heal spontaneously If you develop any symptoms like eye pain, worsening facial pain, increased double vision - call Dr. Huynh to schedule follow up Augmentin (antibiotic) for four more days for pneumonia Keep using the flutter valve at least 4x a day at home to loosen mucus I prescribed tessalon (benzonatate) to see if it helps the cough Schedule pulmonary follow up with Dr. Griffin Also follow up with palliative care clinic - Dr. Easley You can take actaminophen as directed or occasional ibuprofen for chest wall pain You may also use lidocaine patches as needed You may take robitussin as needed for cough -these are available over the counter We made a referral for ambulatory potline monitor It was a pleasure taking care of you in the hospital Liane Barrow MD Total Time Total Time Spent Total Time Spent (In Minutes): less than 30 minutes Coding Level of Care Code 40762 IN/OBS DISCH 30 MIN/LESS Diagnoses Fall, subsequent encounter W19.XXXD Encounter type: subsequent encounter Aspiration pneumonia J69.0 Closed fracture of left orbital floor with routine healing, subsequent encounter S02.32XD Encounter type: subsequent encounter Fracture healing: with routine healing Fracture type: closed Laterality: left Simple chronic bronchitis J44.9 Pleuritic chest pain R07.81 Mucoid impaction of bronchi T17.500A Type 2 diabetes mellitus with microalbuminuria E11.29; R80.9 Old lacunar stroke without late effect Z86.73
== END 2024-01-13 13:44 | disposition home or self-care (01) | DRG 177 ==
LOC: ED 11:21 → EDINP 11:21 → SUATTDRO 16:10 → 2N 18:33 → SUATTDRO 01-06 14:14

== ENCOUNTER 2024-03-24 06:50 | Inpatient (IN) ==
--- NOTE | 2024-03-24 06:58 | Emergency Department Note ---
Impression & Plan Pneumonia ADMIT ED Provider Note HPI: History obtained from patient. The patient is a 83-year-old gentleman with history of COPD, on 2 L nasal cannula oxygen at baseline, who presents the emergency department with a chief complaint shortness of breath and cough for the past day. Patient states that he has had a cough and some wheezing, he has been using his nebulizer at home without much relief. Patient states he was feeling some increased shortness of breath with exertion and could not get out of his chair this morning at home and therefore he contacted EMS for transport to the ED. Patient denies any chest pain. On arrival here to the ED patient is mildly tachycardic, he is saturating well on 2 L nasal cannula oxygen with some minimal increased work of breathing. ROS: - Per HPI Differential Diagnosis: COPD exacerbation, viral upper respiratory infection with cough, pneumonia, pleural effusion, pulmonary edema/CHF exacerbation, acute coronary syndrome, amongst other potential pathologies. *Outpatient medications and allergy history reviewed. PE: General: Alert HEENT: Normocephalic, trachea midline Eyes: Extraocular eye movement is intact, no scleral erythema Pulmonary: Coarse bilateral breath sounds with mild expiratory wheezing Cardio: Regular rate and irregular rhythm GI: Abdomen is soft to palpation : No suprapubic tenderness MSK: No evidence of trauma or malformation of the extremities, no edema Skin: No evidence of rash Neuro: Alert, no focal deficits Psychiatric: Cooperative INDEPENDENT INTERPRETATIONS: monitoring tech: (As interpreted by myself): - An order was placed for continuous cardiac monitoring - Patient was noted to be in atrial fibrillation rhythm with a rate of 100 EKG: (As interpreted by myself): Rate: 110 Rhythm: Atrial fibrillation Intervals: Within normal limits ST changes: No ST elevation Time: 0659 Chest x-ray: (As interpreted by myself): Right lower lobe pneumonia Interventions provided in ED: -DuoNeb breathing treatment, IV cefepime, IV azithromycin, (patient was given IV steroids en route via EMS) Medical Decision Making: IV was established and lab work obtained, patient was placed on director of cardiac rehabilitation. Lab work shows a leukocytosis of 20.46, hemoglobin is normal, platelet count is normal, CMP does not show any evidence of any critical findings. Troponin is negative. EKG is concerning for possibly new onset atrial fibrillation. Procalcitonin is noted to be low. Viral panel testing is negative. Chest x-ray is suggestive of right lower lobe pneumonia with smaller opacity also noted in the left lower lobe per the interpreting radiologist. Blood cultures were ordered in the ED, patient was placed on IV cefepime and IV azithromycin for community-acquired pneumonia. On my reassessment the patient is feeling improved, given his underlying lung disease, bilateral pneumonia, and significant leukocytosis, I did discuss the patient's presentation with the on-call midlevel provider for the hospitalist service, Tracee Thompson PA-C, and the patient was placed for admission in stable condition to the service of Dr. Thompson. Consultants/Discussions held with other healthcare providers: -Hospitalist, Dr. Thompson Disposition discussion held by myself with: -Patient Diagnosis: 1. Bilateral pneumonia, acute 2. Dyspnea, acute 3. COPD exacerbation, acute 4. Leukocytosis, acute Disposition: Admission Gustabo Sutton DO Emergency Medicine Past Med/Surg History Problem List (Updated 03/24/24 @ 13:37 by Gustabo Sutton DO) Pneumonia (Acute) Bilateral pneumonia Chronic allergic rhinitis ETD (eustachian tube dysfunction) Mixed hearing loss, bilateral Right lower lobe pulmonary nodule Aspiration pneumonia [place] stroke without late effect Anxiety disorder due to general medical condition Weakness generalized Dyspnea and respiratory abnormalities Mucoid impaction of bronchi Fracture of orbital floor (Acute) Abnormal chest CT (Acute) Left-sided chest wall pain (Acute) Fall (Acute) Chronic hypoxic respiratory failure Hearing loss Inguinal hernia CAD (coronary artery disease) Hypertension Chronic bronchitis Chronic obstructive pulmonary disease (Acute) Type 2 diabetes mellitus with microalbuminuria Urinary urgency BPH (benign prostatic hyperplasia) Hyperlipidemia Urinary frequency Hypothyroidism Chronic sinusitis (Chronic) Chronic dyspnea (Chronic) Medical History Diplopia Dysphagia Actinic keratosis Required emergent intubation Pneumonia COPD, severe Tobacco abuse Neck pain Abnormal chest CT Pneumonia Severe protein-calorie malnutrition Pneumonia Hypersomnolence COPD with emphysema COPD (chronic obstructive pulmonary disease) case management patient Acquired deviated nasal septum Chronic gout Frequent PVCs Incidental lung nodule, > 3mm and < 8mm Tobacco use Chronic diarrhea Surgical History Hx of vasectomy History of colonoscopy History of Mohs micrographic surgery for skin cancer History of wisdom tooth extraction History of bilateral cataract extraction History of appendectomy History of tonsillectomy Family History Other No family history of adverse response to anesthesia No family history of bleeding disorder Denies family history of Ovarian cancer Prostate cancer Myocardial infarction Breast cancer Colorectal cancer Social History Smoking Status: Former smoker Tobacco Type: Cigarettes Age Started Using Tobacco: 21; Age Quit Using Tobacco: 82; packs per day: 2; Second Hand Exposure: No; Do You Dip or Chew Tobacco: No; Hx Alcohol Use: No Hx Substance Use: No Preferred Language: Irish Communication Ability: Effective Visual Impairment: No Limitations Hearing Ability: Normal Watch Repair Person Required: No Beliefs That Will Affect Care: None marital status: Single Current Living Situation: Alone current occupational status: retired How many Children do You have: 1 Feels Safe at Home: Yes Dental Care, Regularly: Yes Physical Activity Frequency: 1-2 Times per Week Seatbelt Use: always Sunscreen Use: No Assistive Devices: Oxygen - Continuous Allergies Allergies Allergy/AdvReac Type Severity Reaction Status Date / Time No Known Allergies Allergy Verified 03/24/24 08:40 Home Meds Home Medications Medication Instructions Recorded Confirmed aspirin 81 mg tablet,delayed 81 mg PO QAM 07/08/23 03/24/24 release Previous Rx's Medication Instructions Recorded Oxygen Home #1 ea 05/19/22 albuterol sulfate 90 mcg/actuation 2 inh inhalation QID PRN shortness 04/15/23 aerosol inhaler of breath or wheezing #18 grams blood sugar diagnostic (OneTouch #200 ea 06/09/23 Ultra Test strips) azelastine 137 mcg (0.1 %) nasal 1 spray intranasal BID #30 mL 07/02/23 spray Oxygen Home #2 L 08/20/23 mometasone-formoterol HFA 200 2 puff inhalation BID #13 grams 09/23/23 mcg-5 mcg/actuation aerosol inhaler (Dulera) potassium chloride 20 mEq 20 meq PO DAILY #90 tabs 10/09/23 tablet,extended release tiotropium bromide 2.5 2 puff inhalation DAILY #3 Inhalers 10/09/23 mcg/actuation mist for inhalation (Spiriva Respimat) empagliflozin 25 mg tablet 25 mg PO QAM #90 tabs 10/21/23 atorvastatin 20 mg tablet 20 mg PO QAM #90 tabs 12/29/23 ipratropium 0.5 mg-albuterol 3 mg 3 ml inhalation Q4H PRN shortness 12/29/23 (2.5 mg base)/3 mL nebulization of breath or wheezing #180 vials soln benzonatate 100 mg capsule 100 mg PO TID PRN cough #30 caps 01/13/24 sodium chloride 7 % for 4 ml inhalation BID mucus plugging 01/13/24 nebulization #240 mL losartan 25 mg tablet 25 mg PO DAILY #90 tabs 02/05/24 metformin 500 mg tablet,extended 1,000 mg (2 x 500 mg) PO BID #360 02/05/24 release 24 hr tabs levothyroxine 88 mcg tablet 88 mcg PO QAM #90 tabs 03/08/24 fluticasone propionate 50 2 spray intranasal DAILY #16 grams 03/22/24 mcg/actuation nasal spray,suspension Results & Data (ED) Vital Signs Vital Signs - 24 hr 03/24/24 07:01 03/24/24 07:01 03/24/24 07:01 Temperature 37.3 C Temperature Source Oral Pulse Rate Pulse Rate from SpO2 Sensor Pulse Rhythm Pulse Strength Respiratory Rate 20 Respiratory Effort / Characteristics Spontaneous Short of Breath SOB on Exertion Non-Labored Spontaneous Respiratory Depth Normal Normal Respiratory Pattern Regular Blood Pressure Blood Pressure [Right Arm] 125/90 Blood Pressure Mean Blood Pressure Mean [Right Arm] 101 Pulse Oximetry 95 Oxygen Delivery Method Nasal Cannula Nasal Cannula Nasal Cannula Oxygen Flow Rate 2 2 2 Sepsis Recent Fever Within 48 Hours Sepsis New/Unexplained Change in Mental Status Sepsis Action Taken by Nursing 03/24/24 07:02 03/24/24 07:02 03/24/24 07:21 Temperature 37.3 C Temperature Source Oral Pulse Rate 115 H 108 H Pulse Rate from SpO2 Sensor 108 H Pulse Rhythm Regular Pulse Strength Normal Respiratory Rate 20 15 Respiratory Effort / Characteristics Respiratory Depth Respiratory Pattern Blood Pressure Blood Pressure [Right Arm] Blood Pressure Mean Blood Pressure Mean [Right Arm] Pulse Oximetry 97 Oxygen Delivery Method Nasal Cannula Oxygen Flow Rate 2 Sepsis Recent Fever Within 48 Hours No Sepsis New/Unexplained Change in Mental Status N/A Sepsis Action Taken by Nursing No Action Required 03/24/24 07:27 03/24/24 07:31 03/24/24 07:31 Temperature Temperature Source Pulse Rate 107 H Pulse Rate from SpO2 Sensor 106 H Pulse Rhythm Pulse Strength Respiratory Rate 15 Respiratory Effort / Characteristics Respiratory Depth Respiratory Pattern Blood Pressure 141/109 H 141/109 H Blood Pressure [Right Arm] Blood Pressure Mean 124 124 Blood Pressure Mean [Right Arm] Pulse Oximetry 98 Oxygen Delivery Method Oxygen Flow Rate Sepsis Recent Fever Within 48 Hours Sepsis New/Unexplained Change in Mental Status Sepsis Action Taken by Nursing 03/24/24 07:31 03/24/24 07:33 03/24/24 07:42 Temperature Temperature Source Pulse Rate 107 H 116 H Pulse Rate from SpO2 Sensor 109 H 113 H Pulse Rhythm Pulse Strength Respiratory Rate 21 19 Respiratory Effort / Characteristics Respiratory Depth Respiratory Pattern Blood Pressure 141/109 H Blood Pressure [Right Arm] Blood Pressure Mean 124 Blood Pressure Mean [Right Arm] Pulse Oximetry 94 94 Oxygen Delivery Method Oxygen Flow Rate Sepsis Recent Fever Within 48 Hours Sepsis New/Unexplained Change in Mental Status Sepsis Action Taken by Nursing 03/24/24 07:51 03/24/24 07:54 03/24/24 08:01 Temperature Temperature Source Pulse Rate 109 H 106 H Pulse Rate from SpO2 Sensor 102 H 108 H Pulse Rhythm Pulse Strength Respiratory Rate 23 23 Respiratory Effort / Characteristics Respiratory Depth Respiratory Pattern Blood Pressure 136/87 Blood Pressure [Right Arm] Blood Pressure Mean 106 Blood Pressure Mean [Right Arm] Pulse Oximetry 96 95 Oxygen Delivery Method Oxygen Flow Rate Sepsis Recent Fever Within 48 Hours Sepsis New/Unexplained Change in Mental Status Sepsis Action Taken by Nursing 03/24/24 08:01 03/24/24 08:03 03/24/24 08:12 Temperature Temperature Source Pulse Rate 108 H 99 H Pulse Rate from SpO2 Sensor 108 H 109 H Pulse Rhythm Pulse Strength Respiratory Rate 20 20 Respiratory Effort / Characteristics Respiratory Depth Respiratory Pattern Blood Pressure 136/87 Blood Pressure [Right Arm] Blood Pressure Mean 106 Blood Pressure Mean [Right Arm] Pulse Oximetry 94 95 Oxygen Delivery Method Oxygen Flow Rate Sepsis Recent Fever Within 48 Hours Sepsis New/Unexplained Change in Mental Status Sepsis Action Taken by Nursing 03/24/24 08:27 03/24/24 08:30 03/24/24 08:38 Temperature Temperature Source Pulse Rate 108 H 111 H 107 H Pulse Rate from SpO2 Sensor Pulse Rhythm Pulse Strength Respiratory Rate 19 Respiratory Effort / Characteristics Respiratory Depth Respiratory Pattern Blood Pressure Blood Pressure [Right Arm] Blood Pressure Mean Blood Pressure Mean [Right Arm] Pulse Oximetry Oxygen Delivery Method Oxygen Flow Rate Sepsis Recent Fever Within 48 Hours Sepsis New/Unexplained Change in Mental Status Sepsis Action Taken by Nursing 03/24/24 08:45 03/24/24 09:00 03/24/24 09:00 Temperature Temperature Source Pulse Rate 105 H Pulse Rate from SpO2 Sensor Pulse Rhythm Pulse Strength Respiratory Rate 24 Respiratory Effort / Characteristics Respiratory Depth Respiratory Pattern Blood Pressure 149/86 H 149/86 H Blood Pressure [Right Arm] Blood Pressure Mean 102 102 Blood Pressure Mean [Right Arm] Pulse Oximetry Oxygen Delivery Method Oxygen Flow Rate Sepsis Recent Fever Within 48 Hours Sepsis New/Unexplained Change in Mental Status Sepsis Action Taken by Nursing 03/24/24 09:09 03/24/24 09:24 Temperature Temperature Source Pulse Rate 101 H 102 H Pulse Rate from SpO2 Sensor 102 H Pulse Rhythm Pulse Strength Respiratory Rate 21 Respiratory Effort / Characteristics Respiratory Depth Respiratory Pattern Blood Pressure Blood Pressure [Right Arm] Blood Pressure Mean Blood Pressure Mean [Right Arm] Pulse Oximetry 93 Oxygen Delivery Method Oxygen Flow Rate Sepsis Recent Fever Within 48 Hours Sepsis New/Unexplained Change in Mental Status Sepsis Action Taken by Nursing Laboratory Data 03/24/24 07:06 03/24/24 07:06 Lab Results 03/24/24 03/24/24 03/24/24 Range/Units 07:06 08:00 08:20 WBC 20.46 H (4.8-10.8) K/ul RBC 5.44 (4.70-6.10) M/uL Hgb 15.9 (14.0-18.0) g/dl Hct 49.2 (42.0-52.0) % MCV 90.4 (80.0-100.0) fL MCH 29.2 (25.0-34.0) pg MCHC 32.3 (32.0-36.0) g/dL RDW Std Deviation 46.4 H (36.4-46.3) fL RDW Coeff of Samantha 13.9 (11.5-14.5) % Plt Count 241 (130-400) K/uL MPV 10.6 (9.4-12.4) fL Immature Gran % (Auto) 0.6 % Neut % (Auto) 86.8 % Lymph % (Auto) 5.2 % [place] % (Auto) 6.8 % Eos % (Auto) 0.4 % Baso % (Auto) 0.2 % Neut # (Auto) 17.75 H (1.40-6.50) K/uL Lymph # (Auto) 1.06 L (1.20-3.40) K/uL [place] # (Auto) 1.39 H (0.11-0.59) K/uL Eos # (Auto) 0.08 (0.00-0.50) K/uL Baso # (Auto) 0.05 (0.00-0.20) K/uL Immature Gran # (Auto) 0.13 (0.01-0.20) K/uL PT 10.3 (9.0-12.0) Seconds INR 0.9 (0.9-1.1) VBG pH 7.35 L (7.36-7.41) VBG pCO2 42 (38-50) mmHg VBG pO2 48 mmHg VBG HCO3 23 mmol/L VBG O2 Saturation 79.2 % VBG Base Excess -2.4 mEq/L Sodium 140 (136-145) mmol/L Potassium 3.8 (3.5-5.1) mmol/L Chloride 105 (98-107) mmol/L Carbon Dioxide 27 (21-32) mmol/L Anion Gap 8 (3-11) BUN 13 (6-23) mg/dl Creatinine 0.69 (0.6-1.4) mg/dl Est Cr Clr Drug Dosing 84.3 ml/min eGFR 92.40 BUN/Creatinine Ratio 18.8 (10-20) Glucose 177 H (70-99(Fasting)) mg/dl Calcium 9.5 (8.6-10.3) mg/dl Total Bilirubin 1.0 (0.2-1.0) mg/dl AST 12 L (13-39) U/L ALT 10 (7-52) U/L Alkaline Phosphatase 74 (34-104) U/L Troponin I High Sens 8.9 (0-20) pg/ml B-Natriuretic Peptide 62 (0-100) pg/ml Total Protein 7.4 (6.0-8.3) gm/dl Albumin 4.5 (3.4-5.0) gm/dl Globulin 2.9 (2.5-4.0) gm/dl Albumin/Globulin Ratio 1.6 (0.9-2) Procalcitonin < 0.02 (0-0.5) ng/ml Adenovirus (PCR) Not Detected (NotDetected) B. pertussis DNA (PCR) Not Detected (NotDetected) B.parapertussis DNA PCR Not Detected (NotDetected) C. pneumoniae DNA (PCR) Not Detected (NotDetected) Coronavirus OC43 (PCR) Not Detected (NotDetected) Coronavirus HKU1 (PCR) Not Detected (NotDetected) Coronavirus 229E (PCR) Not Detected (NotDetected) SARS-CoV-2 (PCR) Not Detected (NotDetected) Coronavirus NL63 (PCR) Not Detected (NotDetected) Human Metapneumovir PCR Not Detected (NotDetected) Influenza Type A (PCR) Not Detected (NotDetected) Influenza Type B (PCR) Not Detected (NotDetected) M. pneumoniae (PCR) Not Detected (NotDetected) Parainfluenza 1 (PCR) Not Detected (NotDetected) Parainfluenza 2 (PCR) Not Detected (NotDetected) Parainfluenza 3 (PCR) Not Detected (NotDetected) Parainfluenza 4 (PCR) Not Detected (NotDetected) RSV (PCR) Not Detected (NotDetected) Entero/Rhino (PCR) Not Detected (NotDetected) Administered Medications Albuterol (Albut/Ipratrop 3mg/0.5mg Neb 3 Ml Vial) 3 ml NEB QIDR AURELIO; Protocol Stop: 04/23/24 11:58 Last Admin: 03/24/24 12:09 Dose: 3 ml Documented By: KARLA Aspirin (Aspirin 81 Mg Ectab) 81 mg PO QAM AURELIO Stop: 04/23/24 11:58 Last Admin: 03/24/24 13:34 Dose: 81 mg Documented By: DIANA Fluticasone/Vilanterol (Fluticasone/Vilanterol 200/25mcg 14 Puffs/Inhaler) 1 puffs INH DAILY [facility] Stop: 04/23/24 11:59 Last Admin: 03/24/24 13:34 Dose: 1 puffs Documented By: DIANA Levofloxacin/Dextrose (Levaquin/D5w) 500 mg in 100 mls @ 100 mls/hr IV Q24H AURELIO; Protocol Stop: 03/31/24 11:29 Last Admin: 03/24/24 13:27 Dose: 100 mls/hr Documented By: DIANA Methylprednisolone 40 mg/ (Syringe) 0.64 mls @ 1.5 mls/min IV Q8H [facility] Stop: 04/23/24 11:29 Last Admin: 03/24/24 13:26 Dose: 1.5 mls/min Documented By: DIANA Umeclidinium [place] (Umeclidinium [place] 62.5mcg/Blister 7 Puffs/Inhaler) 1 puffs INH DAILY [facility] Stop: 04/23/24 11:58 Last Admin: 03/24/24 13:35 Dose: 1 puffs Documented By: DIANA Discontinued Medications Albuterol (Albut/Ipratrop 3mg/0.5mg Neb 3 Ml Vial) 3 ml INH NOW STA Stop: 03/24/24 06:59 Last Admin: 03/24/24 07:19 Dose: 3 ml Documented By: CC Albuterol (Albut/Ipratrop 3mg/0.5mg Neb 3 Ml Vial) Confirm Administered Dose 3 ml .ROUTE .STK-MED ONE Stop: 03/24/24 12:07 Last Admin: 03/24/24 12:09 Dose: Not Given Documented By: KARLA Cefepime HCl (Maxipime 2000mg) 1,000 mg in 10 mls @ 5 mls/min IV NOW STA; Protocol Stop: 03/24/24 09:11 Last Admin: 03/24/24 09:41 Dose: 5 mls/min Documented By: SHAILA Azithromycin 500 mg/ Dextrose 255 mls @ 125 mls/hr IV NOW ONE Stop: 03/24/24 11:12 Last Admin: 03/24/24 09:42 Dose: 125 mls/hr Documented By: SHAILA Imaging Data Radiologist's Impression: Chest X-Ray 03/24/24 06:58 XR chest 1V portable HISTORY: 83 years-old Male Dyspnea acute shortness of breath COMPARISON: 01/11/2024 TECHNIQUE: AP view of the chest FINDINGS: Cardiomediastinal and hilar silhouettes are unchanged. Chronic interstitial thickening. There are persistent bibasilar airspace opacities, right greater than left. No pneumothorax, pleural effusion or overt pulmonary edema. Bones appear to be grossly intact. Spondylitic spurring of the spine. IMPRESSION: There are persistent right greater than left bibasilar airspace opacities suggestive of pneumonia. ACT 112: Negative or not required by law. The above report was generated using voice recognition software. It may contain grammatical, syntax or spelling errors. Electronically signed by: Adeel Breen M.D. 03/24/2024 8:17 AM Discharge Plan Visit Data Chief Complaint: Shortness of Breath/Dyspnea Stated Complaint: SOB ED Provider: Gustabo Sutton Discharge Problem: Pneumonia Patient Disposition: Admitted As Inpatient Discharge Instructions Interventions: ED Discharge Assessment Last Done: 03/24/24 10:30 Discharge Problem: Pneumonia Qualifiers: Pneumonia type: due to unspecified organism Laterality: right Lung location: l ower lobe of lung Qualified Code(s): J18.9 - Pneumonia, unspecified organism
[2024-03-24] MEDS: ALBUT/IPRATROP 3MG/0.5MG NEB 3 ML VIAL INH STA (07:19)
[2024-03-24 07:40] LABS: Basophils # (auto) 0.05 K/uL (0.00-0.20); Basophils % (auto) 0.2 %; Eosinophils # (auto) 0.08 K/uL (0.00-0.50); Eosinophils % (auto) 0.4 %; Hematocrit (blood only) 49.2 % (42.0-52.0); Hemoglobin 15.9 g/dl (14.0-18.0); Immature Granulocytes # (auto) 0.13 K/uL (0.01-0.20); Immature Granulocytes % (auto) 0.6 %; Lymphocytes # (auto) 1.06 K/uL (1.20-3.40); Lymphocytes % (auto) 5.2 %; Mean Corpuscular Hemoglobin 29.2 pg (25.0-34.0); Mean Corpuscular Hgb Conc 32.3 g/dL (32.0-36.0); Mean Corpuscular Volume 90.4 fL (80.0-100.0); Mean Platelet Volume 10.6 fL (9.4-12.4); Monocytes # (auto) 1.39 K/uL (0.11-0.59); Monocytes % (auto) 6.8 %; Neutrophils # (auto) 17.75 K/uL (1.40-6.50); Neutrophils % (auto) 86.8 %; Platelet Count 241 K/uL (130-400); RDW Coefficient of Variation 13.9 % (11.5-14.5); RDW Standard Deviation 46.4 fL (36.4-46.3); Red Blood Count 5.44 M/uL (4.70-6.10); White Blood Count 20.46 K/ul (4.8-10.8)
[2024-03-24 07:48] LABS: Albumin Globulin Ratio 1.6 (0.9-2); Albumin Level 4.5 gm/dl (3.4-5.0); BUN Creatinine Ratio 18.8 (10-20); Calcium 9.5 mg/dl (8.6-10.3); Creatinine Clr Calc Pharmacy 84.3 ml/min; Globulin 2.9 gm/dl (2.5-4.0); Potassium 3.8 mmol/L (3.5-5.1); Total Protein 7.4 gm/dl (6.0-8.3)
[2024-03-24 07:54] LABS: Troponin I High Sensitivity 8.9 pg/ml (0-20)
[2024-03-24 08:13] LABS: INR 0.9 (0.9-1.1); Prothrombin Time 10.3 Seconds (9.0-12.0)
--- NOTE | 2024-03-24 08:19 | XRay Report ---
XR chest 1V portable HISTORY: 83 years-old Male Dyspnea acute shortness of breath COMPARISON: 01/11/2024 TECHNIQUE: AP view of the chest FINDINGS: Cardiomediastinal and hilar silhouettes are unchanged. Chronic interstitial thickening. There are per sistent bibasilar airspace opacities, right greater than left. No pneumothorax, pleural effusion or o vert pulmonary edema. Bones appear to be grossly intact. Spondylitic spurring of the spine. IMPRESSION: There are persistent right greater than left bibasilar airspace opacities suggestive of p neumonia. ACT 112: Negative or not required by law. The above report was generated using voice recognition software. It may contain grammatical, syntax o r spelling errors. Electronically signed by: Adeel Breen M.D. 03/24/2024 8:17 AM
[2024-03-24 08:32] LABS: Base Excess VBG -2.4 mEq/L; HCO3 VBG 23 mmol/L; Oxygen Saturation VBG 79.2 %; PCO2 VBG 42 mmHg (38-50); PO2 VBG 48 mmHg; pH VBG 7.35 (7.36-7.41)
--- NOTE | 2024-03-24 08:48 | Electrocardiogram Report ---
Test Reason : Blood Pressure : */* mmHG Vent. Rate : 110 BPM Atrial Rate : * BPM P-R Int : * ms QRS Dur : 88 ms QT Int : 342 ms P-R-T Axes : * 67 142 degrees QTcB Int : 462 ms Atrial fibrillation with rapid ventricular response Diffuse Minor Nonspecific T wave abnormality Abnormal ECG When compared with ECG of 05-Jan-2024 12:21, Atrial fibrillation has replaced Sinus rhythm Vent. rate has increased by 40 bpm Nonspecific T wave abnormality now present Confirmed by Etienne Perez ([id number]) on 03/24/2024 8:48:29 AM Referred By: REFERRED SELF Confirmed By: Etienne Perez
[2024-03-24 09:00] LABS: Adenovirus PCR Not Detected (NotDetected); Bordetella parapertussis PCR Not Detected (NotDetected); Bordetella pertussis PCR Not Detected (NotDetected); Chlamydia pneumoniae PCR Not Detected (NotDetected); Coronavirus 229E PCR Not Detected (NotDetected); Coronavirus CoV-2 (COVID19)PCR Not Detected (NotDetected); Coronavirus HKU1 PCR Not Detected (NotDetected); Coronavirus NL63 PCR Not Detected (NotDetected); Coronavirus OC43PCR Not Detected (NotDetected); Human Metapneumovirus PCR Not Detected (NotDetected); Influenza A PCR Not Detected (NotDetected); Influenza B PCR Not Detected (NotDetected); Mycoplasma pneumoniae PCR Not Detected (NotDetected); Parainfluenza Virus 1 PCR Not Detected (NotDetected); Parainfluenza Virus 2 PCR Not Detected (NotDetected); Parainfluenza Virus 3 PCR Not Detected (NotDetected); Parainfluenza Virus 4 PCR Not Detected (NotDetected); Respiratory Syncytial VirusPCR Not Detected (NotDetected); Rhinovirus/Enterovirus PCR Not Detected (NotDetected)
[2024-03-24] MEDS: CEFEPIME 1000MG 1,000 MG/10 ML SYR IV STA (09:41)
[2024-03-24] MEDS: AZITHROMYCIN 500 MG in DEXTROSE 5% 250 ML IV ONE (09:42)
--- NOTE | 2024-03-24 10:01 | History & Physical Report ---
Date of Service March 24, 2024 Assessment & Plan (1) Bilateral pneumonia: Plan: Acute, community aquired R>L in setting of underlying COPD - Admit to med/surg - VS per unit protocol - Continue supplemental O2 2L (baseline) - Stop cefepime, start ceftriaxone 2g IV daily (can give first dose this evening at 2100) - Continue azithromycin 250mg IV daily, next dose due on 03/25 (2) Leukocytosis: Plan: Acute - WBC reviewed, 20.46 with neutrophilic predominance, PCT WNL - Not on chronic steroids and denies recent course of steroids - Blood cultures 2x ordered in ED, pending - UA w/ reflex culture ordered by ED - Abx added as above - Trend with repeat CBC in AM (3) Chronic obstructive pulmonary disease: Plan: With mild acute exacerbation and with chronic respiratory failure with hypoxia - Continue supplemental O2 of 2L - Add Duonebs QIDR and q2h prn dyspnea/wheezing, if tachycardia persists, change to xopenex/atrovent - Continue Dulera and Spiriva inhalers - No indication for addition of steroids at this time (4) Type 2 diabetes mellitus with microalbuminuria: Plan: Chronic - Continue Jardiance - Hold Metformin - Last a1c 7.9% in December 2023 - Diabetic diet ordered - Accuchecks AC and HS - add coverage for BSG >180 Plan Chronic medical problems: HTN - continue Losartan 25mg daily Hypothyroidism - continue levothyroxine 88 mcg daily BB HLD - continue atorvastatin Lovenox added for DVT ppx which will start on 03/25 in AM. AM labs ordered including cbc, bmp, and mag. Above plan of care has been d/w Dr. Thompson. Further orders to be implemented as warranted by attending. History of Present Illness Chief Complaint: Dyspnea Primary Care Provider: Kimberlee Syed MD Antonio is an 83 yo M with a pmhx of COPD and chronic respiratory failure on 2L of nasal cannula O2 at his baseline, as well as DMT2, hypothyroidism, CAD, and allergic rhinitis who presented to the ER this AM due to worsening dyspnea. He reports that he has had some nasal congestion and sore throat that started approx 48 hours ago and now has progressed to increasing shortness of breath. He has a chronic cough but does endorse sputum production with yellow to brown appearance. He got up around 0200 am to go to the bathroom and had abrupt onset worsening dyspnea and subsequently called EMS. Upon arrival, he was saturating in the 90s on 2L but was noted to have increased work of breathing. Work up yielded a wbc count of 20,000 with neutrophilic predominance. His PCT was negative. CXR demonstrates evidence of bilateral lower lobe PNA, right greater than left. He was treated with a Duoneb, a dose of Cefepime and Azithromycin and has been referred for admission to the hospital medicine service. Allergies Allergy/AdvReac Type Severity Reaction Status Date / Time No Known Allergies Allergy Verified 03/24/24 08:40 Home Medications Medication Instructions Recorded Confirmed Type Oxygen Home #1 ea 05/19/22 03/22/24 Rx albuterol sulfate 90 mcg/actuation 2 inh inhalation QID PRN shortness 04/15/23 03/24/24 Rx aerosol inhaler of breath or wheezing #18 grams blood sugar diagnostic (OneTouch #200 ea 06/09/23 03/22/24 Rx Ultra Test strips) azelastine 137 mcg (0.1 %) nasal 1 spray intranasal BID #30 mL 07/02/23 03/24/24 Rx spray aspirin 81 mg tablet,delayed 81 mg PO QAM 07/08/23 03/24/24 History release Oxygen Home #2 L 08/20/23 03/24/24 Rx mometasone-formoterol HFA 200 2 puff inhalation BID #13 grams 09/23/23 03/24/24 Rx mcg-5 mcg/actuation aerosol inhaler (Dulera) potassium chloride 20 mEq 20 meq PO DAILY #90 tabs 10/09/23 03/24/24 Rx tablet,extended release tiotropium bromide 2.5 2 puff inhalation DAILY #3 Inhalers 10/09/23 03/24/24 Rx mcg/actuation mist for inhalation (Spiriva Respimat) empagliflozin 25 mg tablet 25 mg PO QAM #90 tabs 10/21/23 03/24/24 Rx atorvastatin 20 mg tablet 20 mg PO QAM #90 tabs 12/29/23 03/24/24 Rx ipratropium 0.5 mg-albuterol 3 mg 3 ml inhalation Q4H PRN shortness 12/29/23 03/24/24 Rx (2.5 mg base)/3 mL nebulization of breath or wheezing #180 vials soln benzonatate 100 mg capsule 100 mg PO TID PRN cough #30 caps 01/13/24 03/24/24 Rx sodium chloride 7 % for 4 ml inhalation BID mucus plugging 01/13/24 03/24/24 Rx nebulization #240 mL losartan 25 mg tablet 25 mg PO DAILY #90 tabs 02/05/24 03/24/24 Rx metformin 500 mg tablet,extended 1,000 mg (2 x 500 mg) PO BID #360 02/05/24 03/24/24 Rx release 24 hr tabs levothyroxine 88 mcg tablet 88 mcg PO QAM #90 tabs 03/08/24 03/24/24 Rx fluticasone propionate 50 2 spray intranasal DAILY #16 grams 03/22/24 03/24/24 Rx mcg/actuation nasal spray,suspension Past Med/Surg History Problem List (Updated 03/24/24 @ 09:57 by Tracee Thompson PA-C) Bilateral pneumonia Chronic allergic rhinitis ETD (eustachian tube dysfunction) Mixed hearing loss, bilateral Right lower lobe pulmonary nodule Aspiration pneumonia Old lacunar stroke without late effect Anxiety disorder due to general medical condition Weakness generalized Dyspnea and respiratory abnormalities Mucoid impaction of bronchi Fracture of orbital floor (Acute) Abnormal chest CT (Acute) Left-sided chest wall pain (Acute) Fall (Acute) Chronic hypoxic respiratory failure Hearing loss Inguinal hernia CAD (coronary artery disease) Hypertension Chronic bronchitis Chronic obstructive pulmonary disease (Acute) Type 2 diabetes mellitus with microalbuminuria Urinary urgency BPH (benign prostatic hyperplasia) Hyperlipidemia Urinary frequency Hypothyroidism Chronic sinusitis (Chronic) Chronic dyspnea (Chronic) Medical History Diplopia Dysphagia Actinic keratosis Required emergent intubation Pneumonia COPD, severe Tobacco abuse Neck pain Abnormal chest CT Pneumonia Severe protein-calorie malnutrition Pneumonia Hypersomnolence COPD with emphysema COPD (chronic obstructive pulmonary disease) case management patient Acquired deviated nasal septum Chronic gout Frequent PVCs Incidental lung nodule, > 3mm and < 8mm Tobacco use Chronic diarrhea Surgical History Hx of vasectomy History of colonoscopy History of Mohs micrographic surgery for skin cancer History of wisdom tooth extraction History of bilateral cataract extraction History of appendectomy History of tonsillectomy Family History Other No family history of adverse response to anesthesia No family history of bleeding disorder Denies family history of Ovarian cancer Prostate cancer Myocardial infarction Breast cancer Colorectal cancer Social History Smoking Status: Former smoker Tobacco Type: Cigarettes Age Started Using Tobacco: 21; Age Quit Using Tobacco: 82; packs per day: 2; Second Hand Exposure: No; Do You Dip or Chew Tobacco: No; Hx Alcohol Use: No Hx Substance Use: No Preferred Language: Bermudian Communication Ability: Effective Visual Impairment: No Limitations Hearing Ability: Normal Pickle Cutter Required: No Beliefs That Will Affect Care: None marital status: Single Current Living Situation: Alone current occupational status: retired How many Children do You have: 1 Feels Safe at Home: Yes Dental Care, Regularly: Yes Physical Activity Frequency: 1-2 Times per Week Seatbelt Use: always Sunscreen Use: No Assistive Devices: Oxygen - Continuous Review of Systems 2 Review of Systems: All systems reviewed and are unremarkable except as noted in HPI and below. Denies fever, chills, fatigue, headache, chest pain, palpitations, orthopnea, PND, abdominal pain, n/v/d, constipation, dysuria, hematuria, frequency, back pain, joint pain or swelling, easy bruising or bleeding, skin lesions or rashes. Physical Exam 2 Physical Exam: GENERAL: 83 yo well-nourished elderly M. NAD. EYES: EOMI. PERRLA. Anicteric. HENT: Moist mucous membranes. No scleral icterus. No cervical lymphadenopathy. LUNGS: Nonlabored. Good air exchange with mild late scattered expiratory wheezes. No rhonchi or rales appreciated. CARDIOVASCULAR: Regular rate and rhythm. ABDOMEN: Soft, non-tender and non-distended. Bowel sounds normoactive x 4 quad. EXTREMITIES: No edema. Non-tender. Peripheral pulses +2/4. NEUROLOGIC: A&O x3. No focal neurological deficits. CN II-XII grossly intact. PSYCHIATRIC: Cooperative. Appropriate mood and affect. SKIN: Warm, dry, intact. No rashes or lesions. Results & Data Results & Data Vital Signs (Past 12 Hours) Vital Signs Temp Pulse Resp BP BP Pulse Ox O2 Del Method 03/24/24 08:38 107 H 03/24/24 08:12 99 H 20 95 03/24/24 08:03 108 H 20 94 03/24/24 08:01 136/87 03/24/24 08:01 136/87 03/24/24 07:54 106 H 23 95 03/24/24 07:51 109 H 23 96 03/24/24 07:42 116 H 19 94 03/24/24 07:33 107 H 21 94 03/24/24 07:31 141/109 H 03/24/24 07:31 141/109 H 03/24/24 07:31 141/109 H 03/24/24 07:27 107 H 15 98 03/24/24 07:21 108 H 15 97 03/24/24 07:02 Nasal Cannula 03/24/24 07:02 37.3 C 115 H 20 03/24/24 07:01 37.3 C 20 125/90 95 Nasal Cannula 03/24/24 07:01 Nasal Cannula 03/24/24 07:01 Nasal Cannula O2 Flow Rate 03/24/24 08:38 03/24/24 08:12 03/24/24 08:03 03/24/24 08:01 03/24/24 08:01 03/24/24 07:54 03/24/24 07:51 03/24/24 07:42 03/24/24 07:33 03/24/24 07:31 03/24/24 07:31 03/24/24 07:31 03/24/24 07:27 03/24/24 07:21 03/24/24 07:02 2 03/24/24 07:02 03/24/24 07:01 2 03/24/24 07:01 2 03/24/24 07:01 2 Laboratory Results 03/24/24 07:06 03/24/24 07:06 Diagnostic Findings Chest X-Ray 03/24/24 06:58 XR chest 1V portable HISTORY: 83 years-old Male Dyspnea acute shortness of breath COMPARISON: 01/11/2024 TECHNIQUE: AP view of the chest FINDINGS: Cardiomediastinal and hilar silhouettes are unchanged. Chronic interstitial thickening. There are persistent bibasilar airspace opacities, right greater than left. No pneumothorax, pleural effusion or overt pulmonary edema. Bones appear to be grossly intact. Spondylitic spurring of the spine. IMPRESSION: There are persistent right greater than left bibasilar airspace opacities suggestive of pneumonia. ACT 112: Negative or not required by law. The above report was generated using voice recognition software. It may contain grammatical, syntax or spelling errors. Electronically signed by: Adeel Breen M.D. 03/24/2024 8:17 AM Code Status & VTE Plan Code Status DNR/DNI - confirmed with patient VTE Prophylaxis Plan VTE Prophylaxis will be ordered: Yes Supervising Physician Co-Signing Physician Notes The patient was seen by me. The chart was reviewed. Case discussed with LISBETH Monreal. He appears to have acute bronchitis with exacerbation of his COPD. Fortunately, his chronic respiratory failure has not worsened and he remains on his usual 2 L/min of oxygen per nasal cannula. Chest x-ray reveals no cardiomegaly with evidence of chronic appearing bilateral infiltrates. No prior history of CHF. BNP is pending. He denies any significant sputum production. PG Care Time/CCT Total # of Minutes Spent Total Time Spent with Patient: Total time spent is greater than 50% in coordination of care (as documented) at patient's floor/unit and/or counseling patient: 77 minutes Coding Level of Care Code 64747 INT INP/OBS CARE 3/75MIN Diagnoses Bilateral pneumonia J18.9 Leukocytosis D72.829 Simple chronic bronchitis J44.9 Type 2 diabetes mellitus with microalbuminuria E11.29; R80.9
[2024-03-24] MEDS ORDERED: methylPREDNISolone 10 mg/mL (For Ped Dose < 7mg) IV SCH ×2 (11:30→15:30)
[2024-03-24] MEDS ORDERED: CARBOHYDRATES FOR HYPOGLYCEMIA PO PRN ×2 (11:59→15:21)
[2024-03-24] MEDS ORDERED: GLUCOSE 10 TAB/TUBE PO PRN ×2 (11:59→15:21)
[2024-03-24] MEDS ORDERED: ALUMINUM/MAGNESIUM SUSP 30 ML UDC PO PRN (11:59)
[2024-03-24] MEDS ORDERED: GLUCOSE 40% GEL 15 GM TUBE PO PRN ×2 (11:59→15:21)
[2024-03-24] MEDS ORDERED: MELATONIN 3 MG TAB PO PRN (11:59)
[2024-03-24] MEDS ORDERED: ACETAMINOPHEN 325 MG TAB PO PRN (11:59)
[2024-03-24] MEDS ORDERED: MAGNESIUM HYDROXIDE SUSP 30 ML UDC PO PRN (11:59)
[2024-03-24] MEDS ORDERED: GLUCAGON FOR INJ 1 MG VIAL SQ PRN ×2 (11:59→15:21)
[2024-03-24] MEDS ORDERED: BENZONATATE 100 MG CAPSULE PO PRN (11:59)
[2024-03-24] MEDS ORDERED: DEXTROSE 50% 50 ML SYRINGE IV PRN ×2 (11:59→15:21)
[2024-03-24] MEDS ORDERED: ONDANSETRON INJ 2 MG/ML 2 ML VIAL IV PRN (11:59)
[2024-03-24] MEDS: ALBUT/IPRATROP 3MG/0.5MG NEB 3 ML VIAL NEB SCH (12:09)
[2024-03-24] MEDS: ALBUT/IPRATROP 3MG/0.5MG NEB 3 ML VIAL ONE (12:09)
[2024-03-24] MEDS: methylPREDNISolone 40 MG in SYRINGE 0 ML IV SCH (13:26)
[2024-03-24] MEDS: levoFLOXacin/D5W 500 MG/100 ML BAG IV SCH (13:27)
[2024-03-24] MEDS: ASPIRIN 81 MG ECTAB PO SCH (13:34)
[2024-03-24] MEDS: FLUTICASONE/VILANTEROL 200/25MCG 14 PUFFS/INHALER INH SCH (13:34)
[2024-03-24] MEDS: UMECLIDINIUM BROMIDE 62.5MCG/BLISTER 7 PUFFS/INHALER INH SCH (13:35)
[2024-03-24 14:34] LABS: Appearance Urine Clear (Clear); Bacteria Urine Automated None Seen (None Seen); Bilirubin Urine Negative (Negative); Blood Urine Negative (Negative); Cast Urine Automated 0-2 /lpf (0-2); Color Urine Yellow; Epithelial Cell Urine Auto 0-2 /hpf (0-2); Glucose Urine UA 3+ (Negative); Ketones Urine 2+ (Negative); Leukocyte Esterase Urine Negative (Negative); Nitrite Urine Negative (Negative); Protein Urine 1+ (Negative); RBC Urine Automated 0-2 /hpf (0-2); Specific Gravity Urine 1.041 (1.000-1.030); Urobilinogen Urine Negative (Negative); WBC Urine Automated 0-5 /hpf (0-5)
[2024-03-24] MEDS ORDERED: levoFLOXacin/D5W 500 MG/100 ML BAG IV SCH (15:30)
[2024-03-24] MEDS: INSULIN ASPART PER UNIT CHARGE SC SCH (17:47)
[2024-03-24] MEDS: AZELASTINE HCL 0.1% NASAL 200 SPRAYS/27,400 MCG BTL SCH (20:38)
[2024-03-24] MEDS: guaiFENesin 600 MG TABCR PO SCH (20:39)
[2024-03-24] MEDS ORDERED: cefTRIAXone SODIUM 2,000 MG/50 ML BAG IV SCH (21:00)
[2024-03-25] MEDS: LEVOTHYROXINE SODIUM 88 MCG TABLET PO SCH (06:19)
--- NOTE | 2024-03-25 07:45 | Electrocardiogram Report ---
Test Reason : Blood Pressure : */* mmHG Vent. Rate : 96 BPM Atrial Rate : 100 BPM P-R Int : 246 ms QRS Dur : 100 ms QT Int : 350 ms P-R-T Axes : 77 69 79 degrees QTcB Int : 442 ms Poor data quality, interpretation may be adversely affected Sinus rhythm with 1st degree A-V block Otherwise normal ECG When compared with ECG of 24-Mar-2024 06:59, HR has decreased by 14 bpm Otherwise no significant change (in retrospect. prior tracing likely sinus rhythm.... can see same di stinctive p wave in lead V4) Confirmed by Etienne Preez ([id number]) on 03/25/2024 7:45:16 AM Referred By: REFERRED SELF Confirmed By: Etienne Perez
[2024-03-25 08:24] LABS: Hematocrit (blood only) 41.9 % (42.0-52.0); Hemoglobin 14.1 g/dl (14.0-18.0); Mean Corpuscular Hemoglobin 29.7 pg (25.0-34.0); Mean Corpuscular Hgb Conc 33.7 g/dL (32.0-36.0); Mean Corpuscular Volume 88.2 fL (80.0-100.0); Mean Platelet Volume 10.8 fL (9.4-12.4); Platelet Count 245 K/uL (130-400); RDW Coefficient of Variation 13.7 % (11.5-14.5); RDW Standard Deviation 44.6 fL (36.4-46.3); Red Blood Count 4.75 M/uL (4.70-6.10); White Blood Count 26.87 K/ul (4.8-10.8)
[2024-03-25 08:39] LABS: BUN Creatinine Ratio 45.2 (10-20); Calcium 9.3 mg/dl (8.6-10.3); Creatinine Clr Calc Pharmacy 93.9 ml/min; Magnesium 2.1 mg/dl (1.7-2.4); Potassium 4.2 mmol/L (3.5-5.1)
[2024-03-25] MEDS: ENOXAPARIN INJ 40 MG/0.4 ML SYR SQ SCH (08:53)
[2024-03-25] MEDS: LOSARTAN POTASSIUM 25 MG TAB PO SCH (08:53)
[2024-03-25] MEDS: ATORVASTATIN 20 MG TAB PO SCH (08:53)
[2024-03-25] MEDS: FLUTICASONE PROPIONATE NA SPR 16 GM BTL SCH (08:55)
[2024-03-25] MEDS: EMPAGLIFLOZIN 25 MG TAB PO SCH (08:55)
[2024-03-25] MEDS: POTASSIUM CHLORIDE CRTAB 20 MEQ TABCR PO SCH (08:59)
[2024-03-25] MEDS ORDERED: AZITHROMYCIN 250 MG in DEXTROSE 5% 250 ML IV SCH (09:00)
[2024-03-25] MEDS ORDERED: AZITHROMYCIN 250 MG TAB PO SCH (09:00)
[2024-03-25 09:13] LABS: Basophils # (auto) 0.02 K/uL (0.00-0.20); Basophils % (auto) 0.1 %; Immature Granulocytes # (auto) 0.31 K/uL (0.01-0.20); Immature Granulocytes % (auto) 1.2 %; Lymphocytes # (auto) 0.69 K/uL (1.20-3.40); Lymphocytes % (auto) 2.6 %; Monocytes # (auto) 0.89 K/uL (0.11-0.59); Monocytes % (auto) 3.3 %; Neutrophils # (auto) 24.96 K/uL (1.40-6.50); Neutrophils % (auto) 92.8 %
--- NOTE | 2024-03-25 11:25 | Hospitalist Progress Note ---
Date of Service March 25, 2024 Assessment & Plan (1) Bilateral pneumonia: Plan: Chest x-ray appearance is probably due to interstitial lung disease. He does not have active pneumonia at this time. I suspect he does have acute bronchitis. Previous cultures grew Pseudomonas sensitive to Cipro and intermediate to Levaquin. Levaquin has been switched to intravenous Cipro which we will continue orally at discharge. (2) Leukocytosis: Plan: Due to acute bronchitis and steroid therapy. Will follow (3) Chronic obstructive pulmonary disease: Plan: Acute exacerbation due to underlying bronchitis. Continue parenteral steroid therapy. Oral prednisone tapering dose at discharge. Scheduled nebulizer treatments. Treat underlying bronchitis. (4) Type 2 diabetes mellitus with microalbuminuria: Plan: ADA diet. Metformin is on hold. Sliding scale coverage as needed (5) Chronic respiratory failure with hypoxia: Plan: Fortunately this has not worsened. He remains on his usual 2 L per nasal cannula. Adjust to keep oxygen saturation greater than 90% Plan Hopeful discharge to home tomorrow, March 26 Admission and Anticipated Discharge Date Admission Date: March 24, 2024 Subjective Alert and oriented. No distress. Previous sputum cultures grew Pseudomonas with intermediate sensitivity to Levaquin but sensitive to Cipro. Antibiotics switched from Levaquin to Cipro. Continue parenteral steroid therapy. No evidence of CHF. BNP is 62. I suspect he has an element of interstitial lung disease accounting for his chest x-ray appearance. Procalcitonin is normal. Review of Systems 2 Review of Systems: Constitutionalno fever or chills ENTno blurred vision, no double vision, no epistaxis, no sore throat Respiratorynonproductive cough. No hemoptysis. Dyspnea on exertion Cardiacno palpitations, no chest pain, no syncope Suzanna nausea, vomiting, diarrhea, melena, hematochezia GUno urinary retention, no urinary incontinence, no dysuria, no hematuria Musculoskeletalno joint pain, no muscle tenderness Skinno bruising, no rashes, no pruritus Neurono isolated weakness, no paresthesia, no weakness Psychno depression, no anxiety Physical Exam 2 Physical Exam: General-alert and oriented x3, no fever, no chills HEENT-head atraumatic and normocephalic, pupils equal and reactive to light, extraocular muscles intact Neck-no lymphadenopathy or thyromegaly, trachea midline Chest-midline rhonchi noted. Faint bilateral end expiratory wheezes with forced expiration Cardiac regular rate and rhythm, normal S1 and S2 Abdomen-normal bowel sounds, no hepatosplenomegaly Extremities-no cyanosis, clubbing, or edema Neuro-cranial nerves II through XII intact, motor and sensory function within normal limits, strength symmetrical, no focal deficits Psych-normal affect, normal mood Results & Data Results & Data Vital Signs (Past 12 Hours) Vital Signs Temp Pulse Resp BP Pulse Ox Pulse Ox O2 Del Method 03/25/24 10:59 2 L 18 92 Nasal Cannula 03/25/24 09:41 92 03/25/24 07:56 Nasal Cannula 03/25/24 07:19 36.4 C L 88 20 119/74 93 Nasal Cannula 03/25/24 06:32 77 18 90 Nasal Cannula O2 Flow Rate O2 Flow Rate 03/25/24 10:59 03/25/24 09:41 2 03/25/24 07:56 2 03/25/24 07:19 2 03/25/24 06:32 2 Laboratory Results 03/25/24 07:50 03/25/24 07:50 PG Care Time/CCT Total # of Minutes Spent Total Time Spent with Patient: Total time spent is greater than 50% in coordination of care (as documented) at patient's floor/unit and/or counseling patient: Coding Level of Care Code 28888 SUB INP/OBS CARE 3/50MIN Diagnoses Bilateral pneumonia J18.9 Leukocytosis D72.829 Simple chronic bronchitis J44.9 Type 2 diabetes mellitus with microalbuminuria E11.29; R80.9 Chronic respiratory failure with hypoxia J96.11
[2024-03-25] MEDS: CIPROFLOXACIN / D5W 400 MG/200 ML BAG IV SCH (11:59)
[2024-03-26 07:15] VITALS: O2SAT 94
[2024-03-26 07:17] VITALS: BP 117/71; PULSE 79; RESP 18; TEMP 97.7
[2024-03-26 07:22] LABS: Hematocrit (blood only) 45.2 % (42.0-52.0); Hemoglobin 14.6 g/dl (14.0-18.0); Mean Corpuscular Hemoglobin 29.4 pg (25.0-34.0); Mean Corpuscular Hgb Conc 32.3 g/dL (32.0-36.0); Mean Corpuscular Volume 91.1 fL (80.0-100.0); Mean Platelet Volume 10.4 fL (9.4-12.4); Platelet Count 297 K/uL (130-400); RDW Coefficient of Variation 14.1 % (11.5-14.5); RDW Standard Deviation 47.5 fL (36.4-46.3); Red Blood Count 4.96 M/uL (4.70-6.10); White Blood Count 24.36 K/ul (4.8-10.8)
[2024-03-26 07:42] LABS: Calcium 9.2 mg/dl (8.6-10.3); Creatinine Clr Calc Pharmacy 84.3 ml/min
[2024-03-26 07:51] LABS: Basophils # (auto) 0.03 K/uL (0.00-0.20); Basophils % (auto) 0.1 %; Immature Granulocytes # (auto) 0.31 K/uL (0.01-0.20); Immature Granulocytes % (auto) 1.3 %; Lymphocytes % (auto) 2.5 %; Monocytes % (auto) 3.7 %; Neutrophils # (auto) 22.52 K/uL (1.40-6.50); Neutrophils % (auto) 92.4 %
--- NOTE | 2024-03-26 10:24 | Discharge Summary ---
Discharge Summary Date of Service March 26, 2024 Principal Dx & Hospital Course #1 = Principal Diagnosis (1) Bilateral pneumonia: Chest x-ray appearance is probably due to interstitial lung disease. He does not have active pneumonia at this time. I suspect he does have acute bronchitis. Previous cultures grew Pseudomonas sensitive to Cipro and intermediate to Levaquin. No sputum currently for culture. Levaquin was switched to intravenous Cipro which we will continue orally at discharge. (2) Leukocytosis: Due to acute bronchitis and steroid therapy. Will follow (3) Chronic obstructive pulmonary disease: Acute exacerbation due to underlying bronchitis. Resolved with nebulizer treatments and parenteral steroid therapy. Oral prednisone tapering dose at discharge. Treat underlying bronchitis. (4) Type 2 diabetes mellitus with microalbuminuria: ADA diet. Metformin is on hold. Will resume at discharge sliding scale coverage as needed (5) Chronic respiratory failure with hypoxia: Fortunately this has not worsened. He remains on his usual 2 L per nasal cannula. Adjust to keep oxygen saturation greater than 90% Plan Home today, March 26 Admission HPI Per Admitting Provider Antonio is an 83 yo M with a pmhx of COPD and chronic respiratory failure on 2L of nasal cannula O2 at his baseline, as well as DMT2, hypothyroidism, CAD, and allergic rhinitis who presented to the ER this AM due to worsening dyspnea. He reports that he has had some nasal congestion and sore throat that started approx 48 hours ago and now has progressed to increasing shortness of breath. He has a chronic cough but does endorse sputum production with yellow to brown appearance. He got up around 0200 am to go to the bathroom and had abrupt onset worsening dyspnea and subsequently called EMS. Upon arrival, he was saturating in the 90s on 2L but was noted to have increased work of breathing. Work up yielded a wbc count of 20,000 with neutrophilic predominance. His PCT was negative. CXR demonstrates evidence of bilateral lower lobe PNA, right greater than left. He was treated with a Duoneb, a dose of Cefepime and Azithromycin and has been referred for admission to the hospital medicine service. Discharge Exam General-alert and oriented x3, no fever, no chills HEENT-head atraumatic and normocephalic, pupils equal and reactive to light, extraocular muscles intact Neck-no lymphadenopathy or thyromegaly, trachea midline Chest-midline rhonchi noted. Faint bilateral end expiratory wheezes with forced expiration Cardiac regular rate and rhythm, normal S1 and S2 Abdomen-normal bowel sounds, no hepatosplenomegaly Extremities-no cyanosis, clubbing, or edema Neuro-cranial nerves II through XII intact, motor and sensory function within normal limits, strength symmetrical, no focal deficits Psych-normal affect, normal mood Discharge Plan Discharge Items Patient Disposition: Home - Self-Care Reason For Visit: BILATERAL PNEUMONIA, COPD Discharge Diagnosis: Acute bronchitis, exacerbation COPD Activity: Resume your previous activity Non-emergency contact: Primary Care Provider Call non-emergency contact if: your symptoms worsen Follow-up/Referrals: Kimberlee Syed MD [Primary Care Provider] - Diet: Carb Consistent or DM2 Addtl Attending Provider Instructions: Take Cipro antibiotic for 5 more days. Take prednisone in a tapering dose fashion as directed. Prescriptions have been sent to [facility] pharmacy Pending Studies at Discharge: No Stand-Alone Forms: My [employer], Smoking Cessation Medications and DC Order Prescriptions: New ciprofloxacin HCl [Cipro] 500 mg tablet 500 mg PO BID Qty: 10 0RF prednisone 10 mg tablet See Rx Instructions .ROUTE .COMPLEX Qty: 12 0RF Rx Instructions: 10 mg orally 3 times a day for 2 days, then 10 mg twice a day for 2 days, then 10 mg once a day for 2 days, then stop Continued albuterol sulfate 90 mcg/actuation HFA aerosol inhaler 2 inh inhalation QID PRN (Reason: shortness of breath or wheezing) Qty: 18 3RF Hold Instructions: Resume on 09/03/23. azelastine 137 mcg (0.1 %) aerosol,spray 1 spray intranasal BID Qty: 30 3RF Rx Instructions: administer into each nostril empagliflozin 25 mg tablet 25 mg PO QAM Qty: 90 3RF losartan 25 mg tablet 25 mg PO DAILY Qty: 90 3RF metformin 500 mg tablet extended release 24 hr 1,000 mg PO BID Qty: 360 3RF levothyroxine 88 mcg tablet 88 mcg PO QAM Qty: 90 3RF (DME) OneTouch Ultra Test Strip See Rx Instructions .Route Qty: 200 3RF Rx Instructions: Test Twice per day as needed atorvastatin 20 mg tablet 20 mg PO QAM Qty: 90 3RF ipratropium-albuterol 0.5 mg-3 mg(2.5 mg base)/3 mL solution for nebulization 3 ml inhalation Q4H PRN (Reason: shortness of breath or wheezing) Qty: 180 3RF aspirin 81 mg tablet,delayed release (DR/EC) 81 mg PO QAM Dulera 200-5 mcg/actuation HFA aerosol inhaler 2 puff inhalation BID Qty: 13 3RF potassium chloride 20 mEq tablet extended release 20 meq PO DAILY Qty: 90 1RF Spiriva Respimat 2.5 mcg/actuation mist 2 puff inhalation DAILY Qty: 3 3RF fluticasone propionate 50 mcg/actuation spray,suspension 2 spray intranasal DAILY Qty: 16 2RF Rx Instructions: administer into each nostril (DME) Oxygen Home Liters Per Minute See Rx Instructions .ROUTE .MEDSUPPLY Qty: 1 0RF Rx Instructions: 2 liters with activity/ambulation. (DME) Oxygen Home Liters Per Minute See Rx Instructions .Route Qty: 2 0RF Rx Instructions: As directed benzonatate 100 mg Capsule 100 mg PO TID PRN (Reason: cough) Qty: 30 0RF sodium chloride 7 % solution for nebulization 4 ml inhalation BID Qty: 240 0RF Discharge Orders: Discharge Order (Routine); Ordered 03/26/24 Ordered By: Benigno Thompson Admission Data Admit Date/Time: 03/24/24 09:45 Attending Provider: Benigno Thompson Admit Provider: Benigno Thompson Primary Care Provider: Kimberlee Syed Other Providers: Benigno Thompson Hospital Stay Data Consultations 03/24/24 09:18 ED Decision to Admit Stat Pending Results Patient Have Any Pending Studies at Discharge: No Discharge Instructions Given to Patient (Per Discharging Provider) Take Cipro antibiotic for 5 more days. Take prednisone in a tapering dose fashion as directed. Prescriptions have been sent to [facility] pharmacy Total Time Total Time Spent Total Time Spent (In Minutes): 45 minutes Coding Level of Care Code 06103 INP/OBS DISCH >30 MIN Diagnoses Bilateral pneumonia J18.9 Leukocytosis D72.829 Simple chronic bronchitis J44.9 Type 2 diabetes mellitus with microalbuminuria E11.29; R80.9 Chronic respiratory failure with hypoxia J96.11
== END 2024-03-26 12:25 | disposition home or self-care (01) | DRG 177 ==
LOC: SUATTDRO → ED 06:50 → 3N 09:45
DX: F41.9 Anxiety disorder, unspecified; Z11.52 Encounter for screening for COVID-19; E78.5 Hyperlipidemia, unspecified; Z86.73 Personal history of transient ischemic attack (TIA), and cerebral infarction without residual deficits; I25.10 Atherosclerotic heart disease of native coronary artery without angina pectoris; Z79.84 Long term (current) use of oral hypoglycemic drugs; E03.9 Hypothyroidism, unspecified; Z87.891 Personal history of nicotine dependence; J20.9 Acute bronchitis, unspecified; J44.0 Chronic obstructive pulmonary disease with (acute) lower respiratory infection; E11.69 Type 2 diabetes mellitus with other specified complication; Z79.82 Long term (current) use of aspirin; Z79.51 Long term (current) use of inhaled steroids; N40.0 Benign prostatic hyperplasia without lower urinary tract symptoms; Z99.81 Dependence on supplemental oxygen; Z66 Do not resuscitate; J96.21 Acute and chronic respiratory failure with hypoxia; Z79.890 Hormone replacement therapy; J43.9 Emphysema, unspecified; I10 Essential (primary) hypertension; J69.0 Pneumonitis due to inhalation of food and vomit; Z79.899 Other long term (current) drug therapy

== ENCOUNTER 2024-03-27 17:33 | Inpatient (IN) ==
--- NOTE | 2024-03-27 18:02 | Emergency Department Note ---
Impression & Plan Right lower lobe pneumonia, Chronic obstructive pulmonary disease, Weakness ED Provider Note Provider: Thomas Westbrook MD DATE OF SERVICE: 03/27/2024 CHIEF COMPLAINT: Weak still with some breathing issues HISTORY OF PRESENT ILLNESS: Patient is a 83-year-old gentleman history of COPD and chronic respiratory failure on 2 L of oxygen, chronic bronchitis, diabetes, CAD, hypertension, BPH presenting here today via ambulance from home. Patient admitted for possible pneumonia and lung exacerbation and discharged yesterday. States his breathing has improved much during his hospitalization and he is just so weak. States he was too weak to even complete a nebulizer at home this afternoon. No falls however. Denies any pain complaints. Some decreased appetite but no vomiting or significant diarrhea reported. Legs have been weak like Jell-O according to him but again did not fall. Has been using his 2 L of oxygen and feels still short of breath on this. Has been taking his medications and was discharged on Cipro antibiotic and has been taking. PAST MEDICAL HISTORY: As noted above MEDICATIONS: Reviewed home medications SOCIAL HISTORY: Former smoker PHYSICAL EXAM: GENERAL: alert and oriented in no acute distress on stretcher Head: normocephalic and atraumatic EYES: No injection, discharge or icterus. EOMI. NECK: Trachea midline. Good range of motion ENT: Mucous membranes pink and moist. LUNGS: Airway patent. No retractions but mild work of breathing and tachypnea. Breath sounds with some diffuse wheezing crackles throughout HEART: Regular rate and rhythm. No chest wall tenderness ABDOMEN: Soft and non-tender, without guarding or rebound. SKIN: Acyanotic, warm, dry, without rashes EXTREMITIES: Without swelling, tenderness or deformity NEUROLOGICAL: No focal deficits. No aphasia. No facial droop or slurred speech. EK beats minute sinus rhythm with sinus arrhythmia. PVC noted. No acute ST segment elevation or depression with QTc of 405. CONTINUOUS CARDIAC MONITORING: was ordered and showed a heart rate of 90s-100s bpm in normal sinus rhythm with sinus arrhythmia to sinus tachycardia Patient's laboratory studies and imaging reviewed. Differential includes Infection, dehydration, metabolic abnormality, hypo/hyperglycemia, electrolyte disturbance, anemia, hypoxia, cardiac sources, neurologic, as well as other pathologies. IMPRESSION/MEDICAL DECISION MAKING: Patient recent admission for possible pneumonia and underlying lung disease. On Cipro and steroids. Significant weakness now came in complete nebulizer at home. Seems to be at rest not hypoxic but does have some work of breathing. Will proceed with CT of the chest to further differentiate a lot of the lung disease as there are significant structural component making x-rays difficult to interpret. Will exclude PE. Blood work obtained to look for any significant worsening leukocytosis or renal dysfunction or electrolyte abnormality. EKG and troponin sent but not having any active pain. No trauma reported. Will attempt to obtain sputum culture. In the past has had Pseudomonas in the sputum and thus he is on the Cipro. Nonfocal weakness I doubt this represents CVA. Lactate not elevated. No significant renal dysfunction or transaminitis notable. Mild anion gap. VBG will be obtained, not hypercarbic or acidotic. Procalcitonin elevated. Troponin not elevated. No transaminitis. Leukocytosis 21.6 today is elevated. He is also on steroids but seems a bit excessive for that. No anemia. CT of the chest without evidence of PE but evidence of a fairly complete right lower lobe consolidation/pneumonia. Given history of Pseudomonas in the past we will start on Zosyn to include pseudomonal as well as generalized strep coverage. Patient with some improvement after nebulizer here. Discussed with him and family member findings and given his age and significant weakness they agree with the plan to be evaluated by the hospitalist for further care here at the hospital. DIAGNOSIS: Right lower lobe pneumonia, weakness, COPD DISPOSITION: Hospitalist will evaluate Patient was agreeable with this plan. Past Med/Surg History Problem List (Updated 03/27/24 @ 23:44 by Thomas Westbrook M.D.) Weakness (Acute) Right lower lobe pneumonia (Acute) Acute on chronic respiratory failure with hypoxia Chronic respiratory failure with hypoxia Pneumonia (Acute) Bilateral pneumonia Chronic allergic rhinitis ETD (eustachian tube dysfunction) Mixed hearing loss, bilateral Right lower lobe pulmonary nodule Aspiration pneumonia Old lacunar stroke without late effect Anxiety disorder due to general medical condition Weakness generalized Dyspnea and respiratory abnormalities Mucoid impaction of bronchi Fracture of orbital floor (Acute) Abnormal chest CT (Acute) Left-sided chest wall pain (Acute) Fall (Acute) Chronic hypoxic respiratory failure Hearing loss Inguinal hernia CAD (coronary artery disease) Hypertension Chronic bronchitis Chronic obstructive pulmonary disease (Acute) Type 2 diabetes mellitus with microalbuminuria Urinary urgency BPH (benign prostatic hyperplasia) Hyperlipidemia Urinary frequency Hypothyroidism Chronic sinusitis (Chronic) Chronic dyspnea (Chronic) Medical History Diplopia Dysphagia Actinic keratosis Required emergent intubation Pneumonia COPD, severe Tobacco abuse Neck pain Abnormal chest CT Pneumonia Severe protein-calorie malnutrition Pneumonia Hypersomnolence COPD with emphysema COPD (chronic obstructive pulmonary disease) case management patient Acquired deviated nasal septum Chronic gout Frequent PVCs Incidental lung nodule, > 3mm and < 8mm Tobacco use Chronic diarrhea Surgical History Hx of vasectomy History of colonoscopy History of Mohs micrographic surgery for skin cancer History of wisdom tooth extraction History of bilateral cataract extraction History of appendectomy History of tonsillectomy Family History Other No family history of adverse response to anesthesia No family history of bleeding disorder Denies family history of Ovarian cancer Prostate cancer Myocardial infarction Breast cancer Colorectal cancer Social History Smoking Status: Former smoker Tobacco Type: Cigarettes Age Started Using Tobacco: 21; Age Quit Using Tobacco: 82; packs per day: 2; Second Hand Exposure: No; Do You Dip or Chew Tobacco: No; Tobacco Cessation Education Requested by Patient: No Hx Alcohol Use: No Hx Substance Use: No Preferred Language: Macedonian Communication Ability: Effective Visual Impairment: No Limitations Hearing Ability: Normal [employer] Work[employer] Required: No Beliefs That Will Affect Care: None marital status: Single Current Living Situation: Alone current occupational status: retired How many Children do You have: 1 Other Information That Helps Us Care for You: No Feels Safe at Home: Yes Safety Concerns: Feels Safe At This Time Dental Care, Regularly: Yes Physical Activity Frequency: 1-2 Times per Week Seatbelt Use: always Sunscreen Use: No Assistive Devices: Oxygen - Continuous Allergies Allergies Allergy/AdvReac Type Severity Reaction Status Date / Time No Known Allergies Allergy Verified 03/24/24 08:40 Home Meds Home Medications Medication Instructions Recorded Confirmed aspirin 81 mg tablet,delayed 81 mg PO QAM 07/08/23 03/27/24 release azelastine 137 mcg (0.1 %) nasal 1 spray intranasal BID PRN PT 03/27/24 03/27/24 spray USING NEEDED Previous Rx's Medication Instructions Recorded Oxygen Home #1 ea 05/19/22 albuterol sulfate 90 mcg/actuation 2 inh inhalation QID PRN shortness 04/15/23 aerosol inhaler of breath or wheezing #18 grams blood sugar diagnostic (OneTouch #200 ea 06/09/23 Ultra Test strips) Oxygen Home #2 L 08/20/23 mometasone-formoterol HFA 200 2 puff inhalation BID #13 grams 09/23/23 mcg-5 mcg/actuation aerosol inhaler (Dulera) potassium chloride 20 mEq 20 meq PO DAILY #90 tabs 10/09/23 tablet,extended release tiotropium bromide 2.5 2 puff inhalation DAILY #3 Inhalers 10/09/23 mcg/actuation mist for inhalation (Spiriva Respimat) empagliflozin 25 mg tablet 25 mg PO QAM #90 tabs 10/21/23 atorvastatin 20 mg tablet 20 mg PO QAM #90 tabs 12/29/23 ipratropium 0.5 mg-albuterol 3 mg 3 ml inhalation Q4H PRN shortness 12/29/23 (2.5 mg base)/3 mL nebulization of breath or wheezing #180 vials soln benzonatate 100 mg capsule 100 mg PO TID PRN cough #30 caps 01/13/24 sodium chloride 7 % for 4 ml inhalation BID mucus plugging 01/13/24 nebulization #240 mL losartan 25 mg tablet 25 mg PO DAILY #90 tabs 02/05/24 metformin 500 mg tablet,extended 1,000 mg (2 x 500 mg) PO BID #360 02/05/24 release 24 hr tabs levothyroxine 88 mcg tablet 88 mcg PO QAM #90 tabs 03/08/24 fluticasone propionate 50 2 spray intranasal DAILY #16 grams 03/22/24 mcg/actuation nasal spray,suspension ciprofloxacin HCl 500 mg tablet 500 mg PO BID #10 tabs 03/26/24 (Cipro) prednisone 10 mg tablet See Rx Instructions .Route 03/26/24 .COMPLEX #12 tabs Results & Data (ED) Vital Signs Vital Signs - 24 hr 03/27/24 18:01 03/27/24 18:20 03/27/24 18:20 Pulse Rate 107 H 97 H Pulse Rate [Right Brachial] Pulse Rhythm Regular Pulse Rhythm [Right Brachial] Pulse Strength Normal Pulse Strength [Right Brachial] Respiratory Rate 24 Respiratory Effort / Characteristics Non-Labored Respiratory Depth Normal Respiratory Pattern Regular Blood Pressure 120/86 Blood Pressure [Right Arm] Blood Pressure Mean 97 Blood Pressure Mean [Right Arm] Blood Pressure Position Sitting Blood Pressure Position [Right Arm] Pulse Oximetry 93 Oxygen Delivery Method Nasal Cannula Nasal Cannula Oxygen Flow Rate 2 2 Sepsis Recent Fever Within 48 Hours No Sepsis New/Unexplained Change in Mental Status No Sepsis Action Taken by Nursing No Action Required 03/27/24 18:20 03/27/24 18:20 Pulse Rate Pulse Rate [Right Brachial] 97 H Pulse Rhythm Pulse Rhythm [Right Brachial] Regular Pulse Strength Pulse Strength [Right Brachial] Normal Respiratory Rate 18 Respiratory Effort / Characteristics Non-Labored Respiratory Depth Normal Respiratory Pattern Regular Blood Pressure Blood Pressure [Right Arm] 120/86 Blood Pressure Mean Blood Pressure Mean [Right Arm] 97 Blood Pressure Position Blood Pressure Position [Right Arm] Sitting Pulse Oximetry 93 93 Oxygen Delivery Method Nasal Cannula Nasal Cannula Oxygen Flow Rate 2 2 Sepsis Recent Fever Within 48 Hours Sepsis New/Unexplained Change in Mental Status Sepsis Action Taken by Nursing Laboratory Data 03/27/24 17:45 03/27/24 17:45 Lab Results 03/27/24 03/27/24 Range/Units 17:45 19:17 WBC 21.67 H (4.8-10.8) K/ul RBC 5.30 (4.70-6.10) M/uL Hgb 15.5 (14.0-18.0) g/dl Hct 47.6 (42.0-52.0) % MCV 89.8 (80.0-100.0) fL MCH 29.2 (25.0-34.0) pg MCHC 32.6 (32.0-36.0) g/dL RDW Std Deviation 46.3 (36.4-46.3) fL RDW Coeff of Samantha 14.1 (11.5-14.5) % Plt Count 308 (130-400) K/uL MPV 10.3 (9.4-12.4) fL Neutrophils % (Manual) 89 % Lymphocytes % (Manual) 2 % Monocytes % (Manual) 9 % Neutrophils # (Manual) 19.29 H (1.40-6.50) K/uL Total Absolute Neuts 19.29 H (1.4-6.5) K/uL Lymphocytes # (Manual) 0.43 L (1.2-3.4) K/uL Total Abs Lymphocytes 0.43 L (1.2-3.4) K/uL Monocytes # (Manual) 1.95 H (0.11-0.59) K/uL PT 10.6 (9.0-12.0) Seconds INR 1.0 (0.9-1.1) VBG pH 7.37 (7.36-7.41) VBG pCO2 45 (38-50) mmHg VBG pO2 38 mmHg VBG HCO3 26 mmol/L VBG O2 Saturation 61.6 % VBG Base Excess 0.2 mEq/L Sodium 137 (136-145) mmol/L Potassium 4.1 (3.5-5.1) mmol/L Chloride 103 (98-107) mmol/L Carbon Dioxide 20 L (21-32) mmol/L Anion Gap 14 H (3-11) BUN 22 (6-23) mg/dl Creatinine 0.67 (0.6-1.4) mg/dl Est Cr Clr Drug Dosing 84.9 ml/min eGFR 93.22 BUN/Creatinine Ratio 32.8 H (10-20) Glucose 177 H (70-99(Fasting)) mg/dl Lactate 1.5 (0.4-2.0) mmol/L Calcium 8.9 (8.6-10.3) mg/dl Magnesium 1.9 (1.7-2.4) mg/dl Total Bilirubin 1.3 H (0.2-1.0) mg/dl AST 15 (13-39) U/L ALT 16 (7-52) U/L Alkaline Phosphatase 62 (34-104) U/L Troponin I High Sens 14.9 (0-20) pg/ml Total Protein 6.9 (6.0-8.3) gm/dl Albumin 4.0 (3.4-5.0) gm/dl Globulin 2.9 (2.5-4.0) gm/dl Albumin/Globulin Ratio 1.4 (0.9-2) Procalcitonin 0.14 (0-0.5) ng/ml TSH 2.794 (0.300-4.500) uIu/ml Administered Medications Guaifenesin (Guaifenesin 600 Mg Tabcr) 1,200 mg PO Q12 [facility] Stop: 04/26/24 21:59 Last Admin: 03/27/24 23:02 Dose: 1,200 mg Documented By: ERIK Ciprofloxacin (Cipro / D5w) 400 mg in 200 mls @ 200 mls/hr IV Q12H [facility]; Protocol Stop: 04/03/24 21:59 Last Admin: 03/27/24 22:26 Dose: 200 mls/hr Documented By: ERIK Methylprednisolone 20 mg/ (Syringe) 0.32 mls @ 1.5 mls/min IV Q8H [facility] Stop: 04/26/24 21:59 Last Admin: 03/27/24 22:26 Dose: 1.5 mls/min Documented By: ERIK Insulin Aspart (Insulin Aspart Per Unit Charge) 0 units SC ACHS [facility] Stop: 04/26/24 21:59 Last Admin: 03/27/24 22:36 Dose: 1 units Documented By: ERIK Co-signed By: HEDIY Sodium Chloride (Sodium Chlor 7% 4 Ml Neb) 4 ml INH BIDR [facility] Stop: 04/26/24 21:59 Last Admin: 03/27/24 22:43 Dose: 4 ml Documented By: JALEN Discontinued Medications Albuterol (Albut/Ipratrop 3mg/0.5mg Neb 3 Ml Vial) 3 ml NEB NOW STA; Protocol Stop: 03/27/24 17:51 Last Admin: 03/27/24 18:06 Dose: 3 ml Documented By: RAQUEL Piperacillin Sod/Tazobactam Sod (Zosyn) 4.5 gm in 100 mls @ 200 mls/hr IV NOW ONE; Protocol Stop: 03/27/24 19:42 Last Infusion: 03/27/24 20:49 Dose: Infused Documented By: Admin: 03/27/24 20:15 Dose: 200 mls/hr Documented By: RAQUEL Ioversol (Optiray 320 125ml) 118 ml IV ONCE ONE Stop: 03/27/24 18:52 Last Admin: 03/27/24 18:51 Dose: 118 ml Documented By: MITCH Metformin HCl (Metformin Hcl Er 500 Mg Tabcr) 1,000 mg PO BID [facility] Stop: 04/26/24 21:39 Last Admin: 03/27/24 22:14 Dose: Not Given Documented By: ERIK Imaging Data Radiologist's Impression: Chest CTA 03/27/24 17:49 CT angio chest PE protocol CLINICAL HISTORY: PE, Lung disease, sob, weak TECHNIQUE: Multidetector row helical CT of the chest was performed with angiographic protocol. Coronal and sagittal reformations were obtained. Coronal and sagittal MIPS were obtained from the axial data set and were submitted for review. Automated dose lowering techniques and/or adjustment according to patient size were utilized for this exam. CT DOSE: 726.17 mGy.cm Comparison: Comparison is made to CT chest 01/05/2024 FINDINGS: Lungs and pleura: Diffuse centrilobular emphysema is seen most prominent in the upper lobes. Right lower lung airspace opacities noted. Bronchial wall thickening and mucous plugging are seen. Heart and pericardium: Heart size is normal. No pericardial effusion. Vessels: No evidence of pulmonary embolism. Pulmonary trunk measures 33 mm. Mediastinum and jonas: 16 mm right subcarinal lymph node is seen. Chest wall and lower neck: Unremarkable. Abdomen: Unremarkable. Bones: Degenerative changes of the thoracic spine. Old healed rib fractures are seen. IMPRESSION: 1. No pulmonary embolus. 2. Right lower lung pneumonia with mediastinal lymphadenopathy. 3. Emphysema. ACT 112: Negative or not required by law. Electronically signed by: Jorje Espinal M.D. 03/27/2024 7:07 PM Discharge Plan Visit Data Chief Complaint: Shortness of Breath/Dyspnea Stated Complaint: SOB ED Provider: Thomas Westbrook Discharge Problem: Right lower lobe pneumonia, Chronic obstructive pulmonary disease, Weakness Patient Disposition: Admitted As Inpatient Discharge Instructions Interventions: ED Discharge Assessment Last Done: 03/27/24 21:34 Discharge Problem: Right lower lobe pneumonia Qualifiers: Pneumonia type: due to unspecified organism Qualified Code(s): J18.9 - Pneumonia, unspecified organism Chronic obstructive pulmonary disease Qualifiers: COPD type: chronic bronchitis
[2024-03-27] MEDS: ALBUT/IPRATROP 3MG/0.5MG NEB 3 ML VIAL NEB STA (18:06)
[2024-03-27 18:31] LABS: Albumin Globulin Ratio 1.4 (0.9-2); BUN Creatinine Ratio 32.8 (10-20); Bilirubin,Total 1.3 mg/dl (0.2-1.0); Calcium 8.9 mg/dl (8.6-10.3); Creatinine Clr Calc Pharmacy 84.9 ml/min; Globulin 2.9 gm/dl (2.5-4.0); Magnesium 1.9 mg/dl (1.7-2.4); Potassium 4.1 mmol/L (3.5-5.1); Total Protein 6.9 gm/dl (6.0-8.3)
[2024-03-27 18:38] LABS: Troponin I High Sensitivity 14.9 pg/ml (0-20)
[2024-03-27 18:39] LABS: ALC (manual) 0.43 K/uL (1.2-3.4); ANC (manual) 19.29 K/uL (1.4-6.5); Hematocrit (blood only) 47.6 % (42.0-52.0); Hemoglobin 15.5 g/dl (14.0-18.0); Lymphocytes # (manual) 0.43 K/uL (1.2-3.4); Lymphocytes % (manual) 2 %; Mean Corpuscular Hemoglobin 29.2 pg (25.0-34.0); Mean Corpuscular Hgb Conc 32.6 g/dL (32.0-36.0); Mean Corpuscular Volume 89.8 fL (80.0-100.0); Mean Platelet Volume 10.3 fL (9.4-12.4); Monocytes # (manual) 1.95 K/uL (0.11-0.59); Monocytes % (manual) 9 %; Neutrophils # (manual) 19.29 K/uL (1.40-6.50); Neutrophils % (manual) 89 %; Platelet Count 308 K/uL (130-400); RDW Coefficient of Variation 14.1 % (11.5-14.5); RDW Standard Deviation 46.3 fL (36.4-46.3); White Blood Count 21.67 K/ul (4.8-10.8)
[2024-03-27 18:41] LABS: Prothrombin Time 10.6 Seconds (9.0-12.0)
[2024-03-27 18:48] LABS: Thyroid Stimulating Hormone 2.794 uIu/ml (0.300-4.500)
[2024-03-27] MEDS: OPTIRAY 320 125ml IV ONE (18:51)
--- NOTE | 2024-03-27 19:08 | CT Scan Report ---
CT angio chest PE protocol CLINICAL HISTORY: PE, Lung disease, sob, weak TECHNIQUE: Multidetector row helical CT of the chest was performed with angiographic protocol. Mcleod l and sagittal reformations were obtained. Coronal and sagittal MIPS were obtained from the axial lester a set and were submitted for review. Automated dose lowering techniques and/or adjustment according to patient size were utilized for this exam. CT DOSE: 726.17 mGy.cm Comparison: Comparison is made to CT chest 01/05/2024 FINDINGS: Lungs and pleura: Diffuse centrilobular emphysema is seen most prominent in the upper lobes. Right lo wer lung airspace opacities noted. Bronchial wall thickening and mucous plugging are seen. Heart and pericardium: Heart size is normal. No pericardial effusion. Vessels: No evidence of pulmonary embolism. Pulmonary trunk measures 33 mm. Mediastinum and jonas: 16 mm right subcarinal lymph node is seen. Chest wall and lower neck: Unremarkable. Abdomen: Unremarkable. Bones: Degenerative changes of the thoracic spine. Old healed rib fractures are seen. IMPRESSION: 1. No pulmonary embolus. 2. Right lower lung pneumonia with mediastinal lymphadenopathy. 3. Emphysema. ACT 112: Negative or not required by law. Electronically signed by: Jorje Espinal M.D. 03/27/2024 7:07 PM
[2024-03-27 19:34] LABS: Base Excess VBG 0.2 mEq/L; HCO3 VBG 26 mmol/L; Oxygen Saturation VBG 61.6 %; PCO2 VBG 45 mmHg (38-50); PO2 VBG 38 mmHg; pH VBG 7.37 (7.36-7.41)
[2024-03-27] MEDS: PIPERACILLIN/TAZOBACTAM 4.5 GM/100 ML BAG IV ONE (20:15)
--- NOTE | 2024-03-27 20:16 | History & Physical Report ---
Date of Service March 27, 2024 Assessment & Plan (1) Acute on chronic respiratory failure with hypoxia: (2) Right lower lobe pneumonia: (3) Aspiration pneumonia: (4) Hypertension: (5) CAD (coronary artery disease): (6) Type 2 diabetes mellitus with microalbuminuria: (7) BPH (benign prostatic hyperplasia): (8) Hyperlipidemia: Plan Acute on chronic respiratory failure with hypoxia/right lower lobe aspiration pneumonia- Most recently admitted to [facility] from 03/24-03/26/2024 Bronchial washings from 08/12/2023 positive for Pseudomonas aeruginosa Sputum Gram stain and culture Change Cipro from 500 mg p.o. twice daily to 400 mg IV twice daily Continue Zosyn 4.5 g IV every 8 hours, as started in the ED Duonebs every 4 hours while awake and every 2 hours when necessary. Guaifenesin extended release 12 mg p.o. twice daily MRSA swab Aspiration precautions Hold prednisone taper that he had been on in the outpatient setting Placed on methylprednisolone 20 mg IV every 8 hours Consult pulmonology, follows with Dr. Griffin in the outpatient setting Diabetes mellitus- Hold Jardiance and metformin Place on Accu-Cheks with NovoLog SSI CAD/hypertension- Continue aspirin 81 mg daily, losartan 25 mg daily and potassium chloride 20 mill equivalents p.o. daily Aspiration- Consult speech therapy for assessment History of Present Illness Chief Complaint: The patient presents to the emergency department with complaint of persistent cough and shortness of breath, and in particular complains of generalized weakness with decreased ability to ambulate and do his routine daily activities. Primary Care Provider: Kimberlee Syed MD The patient is a 83-year-old male with a past medical history including chronic respiratory failure with hypoxia, pneumonia, chronic allergic rhinitis, bilateral mixed hearing loss, old lacunar stroke without late effect, anxiety disorder, CAD, hypertension, COPD, diabetes mellitus type 2, BPH, hyperlipidemia and hypothyroidism. He was most recently admitted to [facility] from 03/24- 03/26/2024 for bilateral pneumonia, and was discharged on Cipro 500 mg by mouth twice daily, due to history of Pseudomonas aeruginosa pneumonia noted with bronchial washings on 08/12/2023. He presents to the emergency department with symptoms as noted above. Allergies Allergy/AdvReac Type Severity Reaction Status Date / Time No Known Allergies Allergy Verified 03/24/24 08:40 Home Medications Medication Instructions Recorded Confirmed Type Oxygen Home #1 ea 05/19/22 03/27/24 Rx albuterol sulfate 90 mcg/actuation 2 inh inhalation QID PRN shortness 04/15/23 03/27/24 Rx aerosol inhaler of breath or wheezing #18 grams blood sugar diagnostic (OneTouch #200 ea 06/09/23 03/27/24 Rx Ultra Test strips) aspirin 81 mg tablet,delayed 81 mg PO QAM 07/08/23 03/27/24 History release Oxygen Home #2 L 08/20/23 03/27/24 Rx mometasone-formoterol HFA 200 2 puff inhalation BID #13 grams 09/23/23 03/27/24 Rx mcg-5 mcg/actuation aerosol inhaler (Dulera) potassium chloride 20 mEq 20 meq PO DAILY #90 tabs 10/09/23 03/27/24 Rx tablet,extended release tiotropium bromide 2.5 2 puff inhalation DAILY #3 Inhalers 10/09/23 03/27/24 Rx mcg/actuation mist for inhalation (Spiriva Respimat) empagliflozin 25 mg tablet 25 mg PO QAM #90 tabs 10/21/23 03/27/24 Rx atorvastatin 20 mg tablet 20 mg PO QAM #90 tabs 12/29/23 03/27/24 Rx ipratropium 0.5 mg-albuterol 3 mg 3 ml inhalation Q4H PRN shortness 12/29/23 03/27/24 Rx (2.5 mg base)/3 mL nebulization of breath or wheezing #180 vials soln benzonatate 100 mg capsule 100 mg PO TID PRN cough #30 caps 01/13/24 03/27/24 Rx sodium chloride 7 % for 4 ml inhalation BID mucus plugging 01/13/24 03/27/24 Rx nebulization #240 mL losartan 25 mg tablet 25 mg PO DAILY #90 tabs 02/05/24 03/27/24 Rx metformin 500 mg tablet,extended 1,000 mg (2 x 500 mg) PO BID #360 02/05/24 03/27/24 Rx release 24 hr tabs levothyroxine 88 mcg tablet 88 mcg PO QAM #90 tabs 03/08/24 03/27/24 Rx fluticasone propionate 50 2 spray intranasal DAILY #16 grams 03/22/24 03/27/24 Rx mcg/actuation nasal spray,suspension ciprofloxacin HCl 500 mg tablet 500 mg PO BID #10 tabs 03/26/24 03/27/24 Rx (Cipro) prednisone 10 mg tablet See Rx Instructions .Route 03/26/24 03/27/24 Rx .COMPLEX #12 tabs azelastine 137 mcg (0.1 %) nasal 1 spray intranasal BID PRN PT 03/27/24 03/27/24 History spray USING NEEDED Past Med/Surg History Problem List (Updated 03/27/24 @ 20:22 by Jayme Obrien MD) Right lower lobe pneumonia Acute on chronic respiratory failure with hypoxia Chronic respiratory failure with hypoxia Pneumonia (Acute) Bilateral pneumonia Chronic allergic rhinitis ETD (eustachian tube dysfunction) Mixed hearing loss, bilateral Right lower lobe pulmonary nodule Aspiration pneumonia Old lacunar stroke without late effect Anxiety disorder due to general medical condition Weakness generalized Dyspnea and respiratory abnormalities Mucoid impaction of bronchi Fracture of orbital floor (Acute) Abnormal chest CT (Acute) Left-sided chest wall pain (Acute) Fall (Acute) Chronic hypoxic respiratory failure Hearing loss Inguinal hernia CAD (coronary artery disease) Hypertension Chronic bronchitis Chronic obstructive pulmonary disease (Acute) Type 2 diabetes mellitus with microalbuminuria Urinary urgency BPH (benign prostatic hyperplasia) Hyperlipidemia Urinary frequency Hypothyroidism Chronic sinusitis (Chronic) Chronic dyspnea (Chronic) Medical History Diplopia Dysphagia Actinic keratosis Required emergent intubation Pneumonia COPD, severe Tobacco abuse Neck pain Abnormal chest CT Pneumonia Severe protein-calorie malnutrition Pneumonia Hypersomnolence COPD with emphysema COPD (chronic obstructive pulmonary disease) case management patient Acquired deviated nasal septum Chronic gout Frequent PVCs Incidental lung nodule, > 3mm and < 8mm Tobacco use Chronic diarrhea Surgical History Hx of vasectomy History of colonoscopy History of Mohs micrographic surgery for skin cancer History of wisdom tooth extraction History of bilateral cataract extraction History of appendectomy History of tonsillectomy Family History Other No family history of adverse response to anesthesia No family history of bleeding disorder Denies family history of Ovarian cancer Prostate cancer Myocardial infarction Breast cancer Colorectal cancer Social History Smoking Status: Never smoker Tobacco Type: Cigarettes Age Started Using Tobacco: 21; Age Quit Using Tobacco: 82; packs per day: 2; Second Hand Exposure: No; Do You Dip or Chew Tobacco: No; Hx Alcohol Use: No Hx Substance Use: No Preferred Language: Ecuadorean Communication Ability: Effective Visual Impairment: No Limitations Hearing Ability: Normal Road Oiler Required: No Beliefs That Will Affect Care: None marital status: Single Current Living Situation: Alone current occupational status: retired How many Children do You have: 1 Feels Safe at Home: Yes Dental Care, Regularly: Yes Physical Activity Frequency: 1-2 Times per Week Seatbelt Use: always Sunscreen Use: No Assistive Devices: Nebulizer and Oxygen - at Night Review of Systems Review of Systems: The patient denies chest pain, palpitations, lower extremity swelling, sore throat, fevers, chills, sweats, nausea, vomiting, diarrhea , constipation, abdominal pain, pelvic pain, blood in urine or stool, dysuria, urinary frequency or urgency, lightheadedness, dizziness, headache, memory loss, loss of consciousness, rash, abnormal bruising or bleeding, focal weakness, numbness or tingling in arms or legs, generalized arthralgias or myalgias, back or neck pain, or night sweats. The review of systems is otherwise negative other than for that already noted above, and at least 10 systems have been reviewed. Physical Exam Physical Exam: The patient is awake, alert and oriented 3, well developed and well nourished, normocephalic and atraumatic, lying in bed and in no acute distress. HEENT--PERRL, EOMI, mucous membranes and oropharynx normal Neck--supple. No JVD. No bruits. Thyroid normal, trachea midline, no adenopathy. Heart--normal S1 and S2. No murmurs, rubs or gallops. Lungs--coarse breath sounds at right base, with wheezes bilaterally. No respiratory distress, no accessory muscle use. Abdomen--normal bowel sounds and soft. Nontender. Nondistended. Extremities-- No edema. Dermatologic--normal skin turgor, normal color, no abnormal lymph nodes, no rash. Neurologic--cranial nerves II through XII grossly intact. Rheumatologic--normal range of motion. Psychiatric--normal affect. Results & Data Results & Data Vital Signs (Past 12 Hours) Vital Signs Pulse Pulse Resp BP BP Pulse Ox O2 Del Method 03/27/24 18:20 93 Nasal Cannula 03/27/24 18:20 97 H 18 120/86 93 Nasal Cannula 03/27/24 18:20 Nasal Cannula 03/27/24 18:20 97 H 24 120/86 93 Nasal Cannula 03/27/24 18:01 107 H O2 Flow Rate 03/27/24 18:20 2 03/27/24 18:20 2 03/27/24 18:20 2 03/27/24 18:20 2 03/27/24 18:01 Laboratory Results Laboratory Results WBC 21.67 K/ul (4.8-10.8) H 03/27/24 17:45 RBC 5.30 M/uL (4.70-6.10) 03/27/24 17:45 Hgb 15.5 g/dl (14.0-18.0) 03/27/24 17:45 Hct 47.6 % (42.0-52.0) 03/27/24 17:45 MCV 89.8 fL (80.0-100.0) 03/27/24 17:45 MCH 29.2 pg (25.0-34.0) 03/27/24 17:45 MCHC 32.6 g/dL (32.0-36.0) 03/27/24 17:45 RDW Std Deviation 46.3 fL (36.4-46.3) 03/27/24 17:45 RDW Coeff of Samantha 14.1 % (11.5-14.5) 03/27/24 17:45 Plt Count 308 K/uL (130-400) 03/27/24 17:45 MPV 10.3 fL (9.4-12.4) 03/27/24 17:45 Neutrophils % (Manual) 89 % 03/27/24 17:45 Lymphocytes % (Manual) 2 % 03/27/24 17:45 Monocytes % (Manual) 9 % 03/27/24 17:45 Neutrophils # (Manual) 19.29 K/uL (1.40-6.50) H 03/27/24 17:45 Total Absolute Neuts 19.29 K/uL (1.4-6.5) H 03/27/24 17:45 Lymphocytes # (Manual) 0.43 K/uL (1.2-3.4) L 03/27/24 17:45 Total Abs Lymphocytes 0.43 K/uL (1.2-3.4) L 03/27/24 17:45 Monocytes # (Manual) 1.95 K/uL (0.11-0.59) H 03/27/24 17:45 PT 10.6 Seconds (9.0-12.0) 03/27/24 17:45 INR 1.0 (0.9-1.1) 03/27/24 17:45 VBG pH 7.37 (7.36-7.41) 03/27/24 19:17 VBG pCO2 45 mmHg (38-50) 03/27/24 19:17 VBG pO2 38 mmHg 03/27/24 19:17 VBG HCO3 26 mmol/L 03/27/24 19:17 VBG O2 Saturation 61.6 % 03/27/24 19:17 VBG Base Excess 0.2 mEq/L 03/27/24 19:17 Sodium 137 mmol/L (136-145) 03/27/24 17:45 Potassium 4.1 mmol/L (3.5-5.1) 03/27/24 17:45 Chloride 103 mmol/L (98-107) 03/27/24 17:45 Carbon Dioxide 20 mmol/L (21-32) L 03/27/24 17:45 Anion Gap 14 (3-11) H 03/27/24 17:45 BUN 22 mg/dl (6-23) 03/27/24 17:45 Creatinine 0.67 mg/dl (0.6-1.4) 03/27/24 17:45 Est Cr Clr Drug Dosing 84.9 ml/min 03/27/24 17:45 eGFR 93.22 03/27/24 17:45 BUN/Creatinine Ratio 32.8 (10-20) H 03/27/24 17:45 Glucose 177 mg/dl (70-99(Fasting)) H 03/27/24 17:45 Lactate 1.5 mmol/L (0.4-2.0) 03/27/24 17:45 Calcium 8.9 mg/dl (8.6-10.3) 03/27/24 17:45 Magnesium 1.9 mg/dl (1.7-2.4) 03/27/24 17:45 Total Bilirubin 1.3 mg/dl (0.2-1.0) H 03/27/24 17:45 AST 15 U/L (13-39) 03/27/24 17:45 ALT 16 U/L (7-52) 03/27/24 17:45 Alkaline Phosphatase 62 U/L (34-104) 03/27/24 17:45 Troponin I High Sens 14.9 pg/ml (0-20) 03/27/24 17:45 Total Protein 6.9 gm/dl (6.0-8.3) 03/27/24 17:45 Albumin 4.0 gm/dl (3.4-5.0) 03/27/24 17:45 Globulin 2.9 gm/dl (2.5-4.0) 03/27/24 17:45 Albumin/Globulin Ratio 1.4 (0.9-2) 03/27/24 17:45 Procalcitonin 0.14 ng/ml (0-0.5) 03/27/24 17:45 TSH 2.794 uIu/ml (0.300-4.500) 03/27/24 17:45 Impressions Chest CTA 03/27/24 17:49 CT angio chest PE protocol CLINICAL HISTORY: PE, Lung disease, sob, weak TECHNIQUE: Multidetector row helical CT of the chest was performed with angiographic protocol. Coronal and sagittal reformations were obtained. Coronal and sagittal MIPS were obtained from the axial data set and were submitted for review. Automated dose lowering techniques and/or adjustment according to patient size were utilized for this exam. CT DOSE: 726.17 mGy.cm Comparison: Comparison is made to CT chest 01/05/2024 FINDINGS: Lungs and pleura: Diffuse centrilobular emphysema is seen most prominent in the upper lobes. Right lower lung airspace opacities noted. Bronchial wall thickening and mucous plugging are seen. Heart and pericardium: Heart size is normal. No pericardial effusion. Vessels: No evidence of pulmonary embolism. Pulmonary trunk measures 33 mm. Mediastinum and jonas: 16 mm right subcarinal lymph node is seen. Chest wall and lower neck: Unremarkable. Abdomen: Unremarkable. Bones: Degenerative changes of the thoracic spine. Old healed rib fractures are seen. IMPRESSION: 1. No pulmonary embolus. 2. Right lower lung pneumonia with mediastinal lymphadenopathy. 3. Emphysema. ACT 112: Negative or not required by law. Electronically signed by: Jorje Espinal M.D. 03/27/2024 7:07 PM Code Status & VTE Plan Code Status Full code VTE Prophylaxis Plan VTE Prophylaxis will be ordered: Yes PG Care Time/CCT Total # of Minutes Spent Total Time Spent with Patient: Total time spent is greater than 50% in coordination of care (as documented) at patient's floor/unit and/or counseling patient: Coding Level of Care Code 69266 INT INP/OBS CARE 3/75MIN Diagnoses Acute on chronic respiratory failure with hypoxia J96.21 Right lower lobe pneumonia J18.9 Aspiration pneumonia J69.0 Hypertension I10 CAD (coronary artery disease) I25.10 Type 2 diabetes mellitus with microalbuminuria E11.29; R80.9 BPH (benign prostatic hyperplasia) N40.0 Hyperlipidemia E78.5
[2024-03-27] MEDS ORDERED: methylPREDNISolone 10 mg/mL (For Ped Dose < 7mg) IV SCH (20:30)
[2024-03-27] MEDS ORDERED: NON-FORMULARY MEDICATION (Oxygen Home Liters per Minute) SCH (21:40)
[2024-03-27] MEDS ORDERED: GLUCOSE 40% GEL 15 GM TUBE PO PRN (21:40)
[2024-03-27] MEDS ORDERED: ACETAMINOPHEN 325 MG TAB PO PRN (21:40)
[2024-03-27] MEDS ORDERED: DEXTROSE 50% 50 ML SYRINGE IV PRN (21:40)
[2024-03-27] MEDS ORDERED: BENZONATATE 100 MG CAPSULE PO PRN (21:40)
[2024-03-27] MEDS ORDERED: AZELASTINE HCL 0.1% NASAL 200 SPRAYS/27,400 MCG BTL NAE PRN (21:40)
[2024-03-27] MEDS ORDERED: GLUCOSE 10 TAB/TUBE PO PRN (21:40)
[2024-03-27] MEDS ORDERED: GLUCAGON FOR INJ 1 MG VIAL SQ PRN (21:40)
[2024-03-27] MEDS ORDERED: CARBOHYDRATES FOR HYPOGLYCEMIA PO PRN (21:40)
[2024-03-27] MEDS: metFORMIN HCL ER 500 MG TABCR PO SCH (22:14)
[2024-03-27] MEDS: methylPREDNISolone 20 MG in SYRINGE 0 ML IV SCH (22:26)
[2024-03-27] MEDS: CIPROFLOXACIN / D5W 400 MG/200 ML BAG IV SCH (22:26)
[2024-03-27] MEDS: INSULIN ASPART PER UNIT CHARGE SC SCH (22:36)
[2024-03-27] MEDS: SODIUM CHLOR 7% 4 ML NEB INH SCH (22:43)
[2024-03-27 22:57] LABS: Appearance Urine Clear (Clear); Bacteria Urine Automated None Seen (None Seen); Bilirubin Urine Negative (Negative); Blood Urine Negative (Negative); Cast Urine Automated 0-2 /lpf (0-2); Color Urine Yellow; Epithelial Cell Urine Auto 0-2 /hpf (0-2); Glucose Urine UA 3+ (Negative); Ketones Urine 2+ (Negative); Leukocyte Esterase Urine Negative (Negative); Nitrite Urine Negative (Negative); Protein Urine Trace (Negative); RBC Urine Automated 0-2 /hpf (0-2); Specific Gravity Urine > 1.045 (1.000-1.030); Urobilinogen Urine Negative (Negative); WBC Urine Automated 0-5 /hpf (0-5)
[2024-03-27] MEDS: guaiFENesin 600 MG TABCR PO SCH (23:02)
[2024-03-27 23:45] LABS: Adenovirus PCR Not Detected (NotDetected); Bordetella parapertussis PCR Not Detected (NotDetected); Bordetella pertussis PCR Not Detected (NotDetected); Chlamydia pneumoniae PCR Not Detected (NotDetected); Coronavirus 229E PCR Not Detected (NotDetected); Coronavirus CoV-2 (COVID19)PCR Not Detected (NotDetected); Coronavirus HKU1 PCR Not Detected (NotDetected); Coronavirus NL63 PCR Not Detected (NotDetected); Coronavirus OC43PCR Not Detected (NotDetected); Human Metapneumovirus PCR Not Detected (NotDetected); Influenza A PCR Not Detected (NotDetected); Influenza B PCR Not Detected (NotDetected); Mycoplasma pneumoniae PCR Not Detected (NotDetected); Parainfluenza Virus 1 PCR Not Detected (NotDetected); Parainfluenza Virus 2 PCR Not Detected (NotDetected); Parainfluenza Virus 3 PCR Not Detected (NotDetected); Parainfluenza Virus 4 PCR Not Detected (NotDetected); Respiratory Syncytial VirusPCR Not Detected (NotDetected); Rhinovirus/Enterovirus PCR Not Detected (NotDetected)
[2024-03-28] MEDS ORDERED: VANCOMYCIN CONSULT ACTIVE PRN (01:23)
[2024-03-28] MEDS: VANCOMYCIN HCL 2,000 MG in SODIUM CHLORIDE 0.9% 500 ML IV ONE (01:48)
[2024-03-28] MEDS: PIPERACILLIN/TAZOBACTAM 4.5 GM/100 ML BAG IV SCH (01:59)
[2024-03-28] MEDS: LEVOTHYROXINE SODIUM 88 MCG TABLET PO SCH (06:03)
[2024-03-28 06:24] LABS: Hemoglobin 15.3 g/dl (14.0-18.0); Mean Corpuscular Hemoglobin 29.1 pg (25.0-34.0); Mean Corpuscular Hgb Conc 31.9 g/dL (32.0-36.0); Mean Corpuscular Volume 91.4 fL (80.0-100.0); Mean Platelet Volume 10.3 fL (9.4-12.4); Platelet Count 311 K/uL (130-400); RDW Coefficient of Variation 14.1 % (11.5-14.5); RDW Standard Deviation 47.8 fL (36.4-46.3); Red Blood Count 5.25 M/uL (4.70-6.10); White Blood Count 25.41 K/ul (4.8-10.8)
[2024-03-28 06:39] LABS: Albumin Level 3.8 gm/dl (3.4-5.0); BUN Creatinine Ratio 31.1 (10-20); Calcium 8.9 mg/dl (8.6-10.3); Creatinine Clr Calc Pharmacy 76.5 ml/min; Magnesium 2.1 mg/dl (1.7-2.4); Phosphorus 3.9 mg/dl (2.5-4.9); Potassium 4.7 mmol/L (3.5-5.1)
[2024-03-28 06:57] LABS: Basophils # (auto) 0.06 K/uL (0.00-0.20); Basophils % (auto) 0.2 %; Immature Granulocytes # (auto) 0.23 K/uL (0.01-0.20); Immature Granulocytes % (auto) 0.9 %; Lymphocytes # (auto) 0.62 K/uL (1.20-3.40); Lymphocytes % (auto) 2.4 %; Monocytes # (auto) 1.53 K/uL (0.11-0.59); Neutrophils # (auto) 22.97 K/uL (1.40-6.50); Neutrophils % (auto) 90.5 %; Polychromasia 1+; Toxic Vacuolation 1+
--- NOTE | 2024-03-28 07:09 | Hospitalist Progress Note ---
Date of Service March 28, 2024 Assessment & Plan (1) Acute on chronic respiratory failure with hypoxia: (2) Right lower lobe pneumonia: (3) Aspiration pneumonia: (4) Hypertension: (5) CAD (coronary artery disease): (6) Type 2 diabetes mellitus with microalbuminuria: (7) BPH (benign prostatic hyperplasia): (8) Hyperlipidemia: Plan #Chronic respiratory failure// RLL pneumonia// 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: Admitted for same problem at [facility] from 03/24-03/26/2024, CTA 03/27 showed RLL pneumonia Bronchial washings from 08/12/2023 positive for Pseudomonas aeruginosa Nasal MRSA positive Elevated WBC ~25 but has been on steroids, Procal negative - will obtain/consider trending CRP Pulmonology consulted, appreciate recs: - Recommend MRSA and pseudomonal coverage - Consider bronchoscopy if not improving in next 1-2 days ID consulted, appreciate recs: - Abx changed to Linezolid and Cefepime - Histoplasma, Legionella urine antigen ordered, pending Sputum Gram stain and culture pending Continue Pulmicort, PerforomistJc Continue Guaifenesin extended release 12 mg p.o. twice daily Continue continuous supplemental oxygen, 2L at baseline, adjust as needed to maintain SpO2>90 Aspiration precautions Consider restarting some amount of systemic steroids Diabetes mellitus- Hold Jardiance and metformin Place on Accu-Cheks with NovoLog SSI CAD/hypertension- Continue aspirin 81 mg daily, losartan 25 mg daily and potassium chloride 20 mill equivalents p.o. daily Aspiration- Speech therapy evaluation completed, suspect intermittent degree of aspiration Generalized Weakness: PT/OT evaluation and treat FEN/GI: HH/DM2 VTE ppx: Heparin Admission and Anticipated Discharge Date Admission Date: March 27, 2024 Supervising Physician Co-Signing Physician Notes I personally examined the patient and verified all armando points of history and exam, discussed case, and agree with decision making with Dr Brito feeling better than yesterday. notes that he has a bit of a hard time recalling all of HPI - but believes he was feeling at about his baseline until around day of prior admission (03/24) when he abruptly got sicker - came to hopsital. was doing better and went home, but then events leading to readmit were abrupt onset SOB and weakness to where he couldnt even get off the floor. feels better in that respect now. had a minor but similar episode today after lunch. pmo consultant and speech input appreciated vitals noted nad heent nc at mmm lungs coarse throughout rhonchi and rales base R as well pneumonia - very well might be in catarrhal phase of recovery from prior pneumonia with significant mucous/mucous plugging > aspiration > other. continue current care, continue supportive care/mucociliary clearance DVT proph - heparin SQ Subjective Pt notes that he was still feeling weak and SOB when discharged on the , felt severe generalized fatigue prior to admission to the point that he could not get out of his chair. Has continued at baseline O2 requirement of 2L. Ongoing cough, but denies fevers/chills. Review of Systems Review of Systems: as per HPI Physical Exam Physical Exam: General: Alert and oriented. No acute distress Cardiac: Regular rate and rhythm, no murmurs appreciated Respiratory: Course breath sounds throughout bilateral lung holland, mild conversational dyspnea Results & Data Results & Data Vital Signs (Past 12 Hours) Vital Signs Temp Pulse Pulse Pulse Resp BP BP 03/28/24 03:02 37.0 C 79 20 125/75 03/27/24 22:55 37.2 C 93 H 22 110/70 03/27/24 22:45 102 H 19 03/27/24 22:44 115 H 03/27/24 21:58 03/27/24 21:40 36.6 C 92 H 22 135/80 03/27/24 21:36 36.6 C 92 H 22 135/80 Pulse Ox O2 Del Method O2 Flow Rate 03/28/24 03:02 94 Nasal Cannula 2 03/27/24 22:55 95 Nasal Cannula 2 03/27/24 22:45 91 Nasal Cannula 2 03/27/24 22:44 03/27/24 21:58 Nasal Cannula 2 03/27/24 21:40 91 Nasal Cannula 2 03/27/24 21:36 91 Nasal Cannula 2 Resident Activity Tracking Resident Involvement: Resident Care Provided Care Provided: Adult Hospital Medicine (2) Right lower lobe pneumonia Pneumonia type: due to unspecified organism Qualified Code(s): J18.9 - Pneumonia, unspecified organism
[2024-03-28] MEDS: ALBUT/IPRATROP 3MG/0.5MG NEB 3 ML VIAL NEB SCH ×2 (07:15→16:27)
[2024-03-28] MEDS: FLUTICASONE/VILANTEROL 100/25MCG 14 PUFFS/INHALER INH SCH (07:30)
[2024-03-28] MEDS ORDERED: ALBUT/IPRATROP 3MG/0.5MG NEB 3 ML VIAL NEB PRN (07:57)
--- NOTE | 2024-03-28 07:59 | Pulmonary Consultation ---
Date of Consultation March 28, 2024 Assessment & Plan (1) Right lower lobe pneumonia: CTA of the chest demonstrates consolidative process noted of the RIGHT lower lobe which seems to be superimposed on prior history of scarring. This certainly could be seen in the setting of ongoing chronic aspiration. Reg narendra, would treat given the patient's symptoms at this time. Agree with pseudomonal coverage given his prior inoculation. Continue with entire course of Cipro. Consider de-escalation of Zosyn to treat the patient's likely chronic aspiration. Patient with coarse sounding lungs and associated mucoid findings in the peripheral lung holland. 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 Would benefit from sputum cultures and AFB if able to obtain. Would encourage out of bed to chair throughout the day is much as tolerated. Pneumonia type: due to unspecified organism Qualified Code(s): J18.9 - Pneumonia, unspecified organism (2) Acute on chronic respiratory failure with hypoxia: Chronically on 2 L nasal cannula at all times. He is at 2 L at this time. (3) Aspiration pneumonia: Agree with [employer] evaluation. This had been addressed previously during his hospitalization with associated intubation. Reiteration of swallowing mechanics and head of bed elevation will be imperative. Completion of antibiotics as discussed above. (4) Chronic obstructive pulmonary disease: Patient on Spiriva and Dulera in the outpatient setting. Will place patient on budesonide and Perforomist in addition to as needed DuoNebs while hospitalized. Can likely transition back to his outpatient regime at the time of discharge if the patient remains clinically stable. COPD type: chronic bronchitis (5) Chronic dyspnea: Multifactorial in the 83-year-old gentleman with advanced COPD and generalized deconditioning. Supervising Physician Co-Signing Physician Notes Patient seen and examined separately from the JOB. Agree with the note above unless otherwise specified. Patient with evidence of recurrent pneumonia and recurrent hospitalizations. He has advanced COPD. CT chest imaging is concerning for significant right lower lobe infiltrate. I transition his antibiotics to linezolid and Zosyn given his rising white count, MRSA positivity in the nares and findings concerning for possible aspiration. He also has a history of Pseudomonas noted on bronchoscopy from August 2023. Pseudomonas at that time was sensitive to Zosyn and intermediate to levofloxacin. Patient notes that he feels significantly improved compared to yesterday. His lungs sound coarse and he has some mild rhonchi in his right lower lobe. Overall, clinically, he does not appear to be overtly distressed and is doing quite well. He remains on low-flow oxygen which is his baseline at home. Continue efforts at mucociliary clearance with hypertonic saline, flutter valve and percussive vest therapy. Continue Perforomist and budesonide. Will discontinue methylprednisolone at this time as he does not have overt evidence of bronchospasm. We did discuss the role of potential bronchoscopy if he does not have significant improvement in the next 1 to 2 days to obtain a sample and look for an underlying airway lesion which may be predisposing of the postobstructive pneumonia. Patient is agreeable with a conservative strategy at this time and potentially pursuing bronchoscopy if needed. He will also likely benefit from consultation by infectious disease given his Pseudomonas colonization and severe right lower lobe pneumonia. Suspect he will need at least 2 weeks of MRSA coverage in 2 weeks of antipseudomonal coverage. He would benefit from follow-up imaging in about a month's time. Thank you for the consult. Will continue to follow along with you. History of Present Illness Reason for Consultation: pneumonia Requesting Physician: Dr. Obrien Attending Physician: Tim Mike DO History of Present Illness Patient is a pleasant 83-year-old male with a prior history of aspiration pneumonia resulting in short-term intubation earlier this year, COPD group D, chronic hypoxic respiratory failure on 2 L nasal cannula at all times, and chronic bronchitis who had initially been admitted a few days ago in the setting of RIGHT lower lobe pneumonia process. Patient was discharged home on Cipro and steroids. Unfortunately, shortness of breath persisted which prompted return visit to the emergency department. Patient was evaluated with CTA which demonstrated no pulmonary emboli, however dense consolidative findings in the RIGHT lower lobe were noted. He was empirically covered with Zosyn and intravenous Cipro. He continues to receive intravenous steroids as well. Upon evaluation in room 450, the patient is awake, alert, and oriented. He states that his main complaint is shortness of breath. He does have a cough, but reports that it is nonproductive at this time. He has had no chest pain, fevers, chills, or hemoptysis. He was able to use his inhalers at home without issue. When questioned about his cough with eating, he does report that he does tend to clear his throat a bit and states that he needs to be more conscious about swallowing and mechanics when eating. Allergies Allergy/AdvReac Type Severity Reaction Status Date / Time No Known Allergies Allergy Verified 03/24/24 08:40 Home Medications Medication Instructions Recorded Confirmed Type Oxygen Home #1 ea 05/19/22 03/27/24 Rx albuterol sulfate 90 mcg/actuation 2 inh inhalation QID PRN shortness 04/15/23 03/27/24 Rx aerosol inhaler of breath or wheezing #18 grams blood sugar diagnostic (OneTouch #200 ea 06/09/23 03/27/24 Rx Ultra Test strips) aspirin 81 mg tablet,delayed 81 mg PO QAM 07/08/23 03/27/24 History release Oxygen Home #2 L 08/20/23 03/27/24 Rx mometasone-formoterol HFA 200 2 puff inhalation BID #13 grams 09/23/23 03/27/24 Rx mcg-5 mcg/actuation aerosol inhaler (Dulera) potassium chloride 20 mEq 20 meq PO DAILY #90 tabs 10/09/23 03/27/24 Rx tablet,extended release tiotropium bromide 2.5 2 puff inhalation DAILY #3 Inhalers 10/09/23 03/27/24 Rx mcg/actuation mist for inhalation (Spiriva Respimat) empagliflozin 25 mg tablet 25 mg PO QAM #90 tabs 10/21/23 03/27/24 Rx atorvastatin 20 mg tablet 20 mg PO QAM #90 tabs 12/29/23 03/27/24 Rx ipratropium 0.5 mg-albuterol 3 mg 3 ml inhalation Q4H PRN shortness 12/29/23 03/27/24 Rx (2.5 mg base)/3 mL nebulization of breath or wheezing #180 vials soln benzonatate 100 mg capsule 100 mg PO TID PRN cough #30 caps 01/13/24 03/27/24 Rx sodium chloride 7 % for 4 ml inhalation BID mucus plugging 01/13/24 03/27/24 Rx nebulization #240 mL losartan 25 mg tablet 25 mg PO DAILY #90 tabs 02/05/24 03/27/24 Rx metformin 500 mg tablet,extended 1,000 mg (2 x 500 mg) PO BID #360 02/05/24 03/27/24 Rx release 24 hr tabs levothyroxine 88 mcg tablet 88 mcg PO QAM #90 tabs 03/08/24 03/27/24 Rx fluticasone propionate 50 2 spray intranasal DAILY #16 grams 03/22/24 03/27/24 Rx mcg/actuation nasal spray,suspension ciprofloxacin HCl 500 mg tablet 500 mg PO BID #10 tabs 03/26/24 03/27/24 Rx (Cipro) prednisone 10 mg tablet See Rx Instructions .Route 03/26/24 03/27/24 Rx .COMPLEX #12 tabs azelastine 137 mcg (0.1 %) nasal 1 spray intranasal BID PRN PT 03/27/24 03/27/24 History spray USING NEEDED Patient History Medical History Diplopia Dysphagia Actinic keratosis Required emergent intubation Pneumonia COPD, severe Tobacco abuse Neck pain Abnormal chest CT Pneumonia Severe protein-calorie malnutrition Pneumonia Hypersomnolence COPD with emphysema COPD (chronic obstructive pulmonary disease) case management patient Acquired deviated nasal septum Chronic gout Frequent PVCs Incidental lung nodule, > 3mm and < 8mm Tobacco use Chronic diarrhea Surgical History Hx of vasectomy History of colonoscopy History of Mohs micrographic surgery for skin cancer History of wisdom tooth extraction History of bilateral cataract extraction History of appendectomy History of tonsillectomy Family History Other No family history of adverse response to anesthesia No family history of bleeding disorder Denies family history of Ovarian cancer Prostate cancer Myocardial infarction Breast cancer Colorectal cancer Social History Smoking Status: Former smoker Tobacco Type: Cigarettes Age Started Using Tobacco: 21; Age Quit Using Tobacco: 82; packs per day: 2; Second Hand Exposure: No; Do You Dip or Chew Tobacco: No; Hx Alcohol Use: No Hx Substance Use: No Preferred Language: Cambodian Communication Ability: Effective Visual Impairment: No Limitations Hearing Ability: Normal Rn Spine Required: No Beliefs That Will Affect Care: None marital status: Single Current Living Situation: Alone current occupational status: retired How many Children do You have: 1 Feels Safe at Home: Yes Dental Care, Regularly: Yes Physical Activity Frequency: 1-2 Times per Week Seatbelt Use: always Sunscreen Use: No Assistive Devices: Oxygen - Continuous Review of Systems Review of Systems: A complete 10 point review of systems was reviewed with the patient with pertinent positives and negatives as per history of present illness. All else were negative. Physical Exam Physical Exam: VITAL SIGNS Vital signs and nursing notes were reviewed. GENERAL 83-year-old male appearing his stated age who is in no acute distress. Communicates well with provider and answers questions appropriately. SKIN Without rashes or lesions. NOSE Midline and without cyanosis. MOUTH/OROPHARYNX Without perioral cyanosis. NECK Neck with FROM. LUNGS Chest wall evaluation demonstrates increased chest wall A:P diameter. Auscultation reveals coarse breath sounds with slight wheeze noted to the RIGHT lung base. Minimal air movement throughout the upper lung holland. CARDIAC RRR with S1/S2. No murmur, rubs, or gallops appreciated. ABDOMEN Abdominal inspection demonstrates flat. BS normoactive all four quadrants. No tenderness, palpable masses, or ascites noted. EXTREMITIES Nail clubbing not present. No peripheral cyanosis. No pretibial edema present. +3/5 radial palpated throughout. PSYCH A&Ox3 and cooperates fully with examiner. Pt is very pleasant and interacts well with examiner. Results & Data Results & Data Vital Signs (Past 12 Hours) Vital Signs Temp Pulse Pulse Pulse Resp BP BP 03/28/24 07:25 85 03/28/24 07:15 90 16 03/28/24 03:02 37.0 C 79 20 125/75 03/27/24 22:55 37.2 C 93 H 22 110/70 03/27/24 22:45 102 H 19 03/27/24 22:44 115 H 03/27/24 21:58 03/27/24 21:40 36.6 C 92 H 22 135/80 03/27/24 21:36 36.6 C 92 H 22 135/80 Pulse Ox O2 Del Method O2 Flow Rate 03/28/24 07:25 03/28/24 07:15 94 Nasal Cannula 2 03/28/24 03:02 94 Nasal Cannula 2 03/27/24 22:55 95 Nasal Cannula 2 03/27/24 22:45 91 Nasal Cannula 2 03/27/24 22:44 03/27/24 21:58 Nasal Cannula 2 03/27/24 21:40 91 Nasal Cannula 2 03/27/24 21:36 91 Nasal Cannula 2 PG Care Time/CCT Total # of Minutes Spent Total Time Spent with Patient: Total time spent is greater than 50% in coordination of care (as documented) at patient's floor/unit and/or counseling patient: Coding Level of Care Code 17600 INT INP/OBS CARE 3/75MIN Diagnoses Right lower lobe pneumonia J18.9 Pneumonia type: due to unspecified organism Acute on chronic respiratory failure with hypoxia J96.21 Aspiration pneumonia J69.0 Simple chronic bronchitis J44.9 COPD type: chronic bronchitis Chronic dyspnea R06.09
[2024-03-28] MEDS: ASPIRIN 81 MG ECTAB PO SCH (08:43)
[2024-03-28] MEDS: FLUTICASONE PROPIONATE NA SPR 16 GM BTL NAE SCH (08:43)
[2024-03-28] MEDS: LOSARTAN POTASSIUM 25 MG TAB PO SCH (08:44)
[2024-03-28] MEDS: ATORVASTATIN 20 MG TAB PO SCH (08:44)
[2024-03-28] MEDS: POTASSIUM CHLORIDE CRTAB 20 MEQ TABCR PO SCH (08:52)
[2024-03-28] MEDS: VANCOMYCIN 750 MG in D5W 250mL (Use w/ Shortage) IV SCH (10:27)
--- NOTE | 2024-03-28 11:11 | Pharmacy Report ---
Pharmacy PK ABX Note - Date of Service March 28, 2024 - Assessment and Plan Assessment 83 year old M receiving vancomycin and ciprofloxacin for treatment of possible recurrent aspiration pneumonia. Pertinent microbiologic data includes: Positive MRSA Nasal Swab, hx of pseudomonal infx. Pt received one dose of 750 mg vancomycin @1000 today, will change dose to 1000mg Q12 to conserve IV fluids during shortage. Pt was also receiving Zosyn but was d/c'd to deescalate antimicrobial therapy. Day # 1 of antimicrobial therapy. Plan Vancomycin * Loading dose: 2000 mg IV x 1 * Maintenance dose: 1000 mg IV every 12 hours starting tonight at 1800 * Regimen is predicted to achieve target AUC/LANDRY of 400-600 mg/L.hr * Random level ordered for: 03/30 with AM labs Ciprofloxacin 400 mg IV Q12 Pharmacy will continue to follow and will adjust dose/frequency as necessary. Thank you. Pharmacy has transitioned to AUC monitoring for vancomycin. AUC/LANDRY is the preferred PK/PD target and is associated with decreased risk of nephrotoxicity compared to traditional trough targets.
[2024-03-28] MEDS: UMECLIDINIUM BROMIDE 62.5MCG/BLISTER 7 PUFFS/INHALER INH SCH (11:41)
[2024-03-28] MEDS: FORMOTEROL 20 MCG/2 ML VIAL NEB SCH (11:45)
--- NOTE | 2024-03-28 14:37 | Infectious Disease Consult ---
Date of Consultation March 28, 2024 Assessment & Plan (1) Right lower lobe pneumonia: (2) Acute on chronic respiratory failure with hypoxia: (3) Chronic respiratory failure with hypoxia: (4) Type 2 diabetes mellitus with microalbuminuria: Plan 83yo M with h/o COPD with chronic respiratory failure on 2L home O2), h/o aspiration PNA requiring intubation earlier this year, chronic allergic rhinitis, bl mixed hearing loss, old lacunar stroke, CAD, T2DM, BPH, hypothyroidism, HLD, HTN, recent admission 03/24-03/26 with bl PNA and dcd on cipro due to prior h/o PsA PNA in 08/2023 who presented on 03/27 with persistent cough, generalized weakness, and decreased ability to ambulate and do his daily activities. He is afebrile, vss, on 2L NC. Initial labs with WBC 21>25.41 with left shift. Cr 0.74. Lactate wnl. AST/ALT wnl. PCT 0.14. UA negative. MRSA screen positive. RPP negative. Chest CTA with no PE, RLL PNA with mediastinal LAD, emphysema. He has been started on empiric abx. ID consulted 03/28. CT findings with RLL PNA, but note the PCT is low though high WBC (getting s teroids). There is some concern for chronic aspiration as well. Im going to de- escalate zosyn to cefepime for continued Pseudomonas coverage and noting that, per guidelines, there is no benefit of routine addition of anaerobic coverage in aspiration PNA. Given positive MRSA screen, Linezolid is reasonable. I do however wonder whether there is another process since his PCT has been low, even from his last admission. Sputum cultures would be helpful, but his cough is nonproductive. I will also add on histoplasma Ag. May consider other fungal/AFB workup if he doesnt improve. # RLL PNA and mediastinal LAD # COPD on baseline O2 # h/o T2DM - if able, would send sputum cultures - Rachel ordered urine histoplasma Ag - Rachel also ordered urine legionella to be thorough, though less likely - zosyn stopped and started cefepime 2g IV q8h - continue linezolid 600mg q12h - favor shorter course of abx given low PCT, pending clinical improvement ID will continue to follow. If questions or concerns, contact Infectious Disease Call Center . Benita Gay MD [facility], Division of Infectious Diseases [facility]: [phone] Consultation Information Consultation was provided via telemedicine using two-way real-time interactive telecommunication between the patient and the telemedicine provider. For the duration of the visit, the provider was performing the assessment from a different facility than the patient. This includesuse of bluetooth stethoscope forauscultationperformed by the telepresenter that the telemedicine provider can hear if described in the physical exam. Plating Inspector contact information: Please call [facility] Call Center . (Phone Number For Physician Use Only) After establishing a telemedicine visit, patient was: Patient was verified with two unique identifiers, Patient/authorized rep acknowledged consent and understanding and Gave permission to continue telehealth session Time Spent with Patient: Initial => 75 min History of Present Illness Reason for Consultation: recurrent PNA, MRSA +, prior pseudomonas Attending Physician: Tim Mike DO History of Present Illness 83yo M with h/o COPD with chronic respiratory failure on 2L home O2), h/o aspiration PNA requiring intubation earlier this year, chronic allergic rhinitis, bl mixed hearing loss, old lacunar stroke, CAD, T2DM, BPH, hypothyroidism, HLD, HTN, recent admission 03/24-03/26 with bl PNA and dcd on cipro due to prior h/o PsA PNA in 08/2023 who presented on 03/27 with persistent cough, generalized weakness, and decreased ability to ambulate and do his daily activities. He is afebrile, vss, on 2L NC. Initial labs with WBC 21>25.41 with left shift. Cr 0.74. Lactate wnl. AST/ALT wnl. PCT 0.14. UA negative. MRSA screen positive. RPP negative. Chest CTA with no PE, RLL PNA with mediastinal LAD, emphysema. He has been started on empiric abx. ID consulted 03/28. On evaluation, patient reports that he has had SOB. Cough is nonproductive but at baseline, not worse. He denies any pain. He says that he has been feeling SOB for some time and that when he went home, he didnt feel completely back to normal. No diarrhea. No rashes. Denies travel. Denies feeling like hes aspirating when he eats. Allergies Allergy/AdvReac Type Severity Reaction Status Date / Time No Known Allergies Allergy Verified 03/24/24 08:40 Home Medications Medication Instructions Recorded Confirmed Type Oxygen Home #1 ea 05/19/22 03/27/24 Rx albuterol sulfate 90 mcg/actuation 2 inh inhalation QID PRN shortness 04/15/23 03/27/24 Rx aerosol inhaler of breath or wheezing #18 grams blood sugar diagnostic (OneTouch #200 ea 06/09/23 03/27/24 Rx Ultra Test strips) aspirin 81 mg tablet,delayed 81 mg PO QAM 07/08/23 03/27/24 History release Oxygen Home #2 L 08/20/23 03/27/24 Rx mometasone-formoterol HFA 200 2 puff inhalation BID #13 grams 09/23/23 03/27/24 Rx mcg-5 mcg/actuation aerosol inhaler (Dulera) potassium chloride 20 mEq 20 meq PO DAILY #90 tabs 10/09/23 03/27/24 Rx tablet,extended release tiotropium bromide 2.5 2 puff inhalation DAILY #3 Inhalers 10/09/23 03/27/24 Rx mcg/actuation mist for inhalation (Spiriva Respimat) empagliflozin 25 mg tablet 25 mg PO QAM #90 tabs 10/21/23 03/27/24 Rx atorvastatin 20 mg tablet 20 mg PO QAM #90 tabs 12/29/23 03/27/24 Rx ipratropium 0.5 mg-albuterol 3 mg 3 ml inhalation Q4H PRN shortness 12/29/23 03/27/24 Rx (2.5 mg base)/3 mL nebulization of breath or wheezing #180 vials soln benzonatate 100 mg capsule 100 mg PO TID PRN cough #30 caps 01/13/24 03/27/24 Rx sodium chloride 7 % for 4 ml inhalation BID mucus plugging 01/13/24 03/27/24 Rx nebulization #240 mL losartan 25 mg tablet 25 mg PO DAILY #90 tabs 02/05/24 03/27/24 Rx metformin 500 mg tablet,extended 1,000 mg (2 x 500 mg) PO BID #360 02/05/24 03/27/24 Rx release 24 hr tabs levothyroxine 88 mcg tablet 88 mcg PO QAM #90 tabs 03/08/24 03/27/24 Rx fluticasone propionate 50 2 spray intranasal DAILY #16 grams 03/22/24 03/27/24 Rx mcg/actuation nasal spray,suspension ciprofloxacin HCl 500 mg tablet 500 mg PO BID #10 tabs 03/26/24 03/27/24 Rx (Cipro) prednisone 10 mg tablet See Rx Instructions .Route 03/26/24 03/27/24 Rx .COMPLEX #12 tabs azelastine 137 mcg (0.1 %) nasal 1 spray intranasal BID PRN PT 03/27/24 03/27/24 History spray USING NEEDED Patient History Medical History Diplopia Dysphagia Actinic keratosis Required emergent intubation Pneumonia COPD, severe Tobacco abuse Neck pain Abnormal chest CT Pneumonia Severe protein-calorie malnutrition Pneumonia Hypersomnolence COPD with emphysema COPD (chronic obstructive pulmonary disease) case management patient Acquired deviated nasal septum Chronic gout Frequent PVCs Incidental lung nodule, > 3mm and < 8mm Tobacco use Chronic diarrhea Surgical History Hx of vasectomy History of colonoscopy History of Mohs micrographic surgery for skin cancer History of wisdom tooth extraction History of bilateral cataract extraction History of appendectomy History of tonsillectomy Family History Other No family history of adverse response to anesthesia No family history of bleeding disorder Denies family history of Ovarian cancer Prostate cancer Myocardial infarction Breast cancer Colorectal cancer Social History Smoking Status: Former smoker Tobacco Type: Cigarettes Age Started Using Tobacco: 21; Age Quit Using Tobacco: 82; packs per day: 2; Second Hand Exposure: No; Do You Dip or Chew Tobacco: No; Tobacco Cessation Education Requested by Patient: No Hx Alcohol Use: No Hx Substance Use: No Preferred Language: Yoruba Communication Ability: Effective Visual Impairment: No Limitations Hearing Ability: Normal Darklight Inspector Required: No Beliefs That Will Affect Care: None marital status: Single Current Living Situation: Alone current occupational status: retired How many Children do You have: 1 Other Information That Helps Us Care for You: No Feels Safe at Home: Yes Safety Concerns: Feels Safe At This Time Dental Care, Regularly: Yes Physical Activity Frequency: 1-2 Times per Week Seatbelt Use: always Sunscreen Use: No Assistive Devices: Oxygen - Continuous Review of System 10-point review of systems reviewed and are negative except for as above. Physical Exam Physical Exam: General: Awake, alert, no acute distress HEENT: NC/AT, EOMI, mmm Neck: supple Lungs: decreased breath sounds throughout except RUL Heart: no appreciable murmurs Abdomen: soft, NT/ND Ext: no LE edema Skin: no rash Neuro: moving all extremities Results & Data Vital Signs (Past 12 Hours) Vital Signs Temp Pulse Pulse Resp BP BP Pulse Ox 03/28/24 12:38 03/28/24 11:46 75 15 94 03/28/24 10:49 36.6 C 90 18 124/72 96 03/28/24 07:59 36.6 C 73 18 133/80 94 03/28/24 07:25 85 03/28/24 07:15 90 16 94 03/28/24 03:02 37.0 C 79 20 125/75 94 O2 Del Method O2 Flow Rate 03/28/24 12:38 Nasal Cannula 2 03/28/24 11:46 Nasal Cannula 2 03/28/24 10:49 Room Air 03/28/24 07:59 Room Air 03/28/24 07:25 03/28/24 07:15 Nasal Cannula 2 03/28/24 03:02 Nasal Cannula 2 Laboratory Results Labs reviewed. Diagnostic Findings Imaging reviewed. (1) Right lower lobe pneumonia Pneumonia type: due to unspecified organism Qualified Code(s): J18.9 - Pneumonia, unspecified organism
[2024-03-28] MEDS: CEFEPIME 2000MG 2,000 MG/20 ML SYR IV SCH (16:18)
[2024-03-28 16:46] LABS: C Reactive Protein 25.82 mg/dl (0-0.5)
--- NOTE | 2024-03-28 17:28 | Billing Data ---
Date of Service March 28, 2024 Coding Level of Care Code 97691 SUB INP/OBS CARE
[2024-03-28] MEDS ORDERED: VANCOMYCIN HCL 1,000 MG/270 ML BAG IV SCH (18:00)
[2024-03-28] MEDS ORDERED: PIPERACILLIN/TAZOBACTAM 4.5 GM/100 ML BAG IV SCH (18:00)
[2024-03-28] MEDS: BUDESONIDE 0.5 MG/2 ML VIAL (PULMICORT) NEB SCH (19:47)
[2024-03-28] MEDS: HEPARIN SOD 5,000 UNIT/0.5 ML VIAL SQ SCH (20:33)
[2024-03-28] MEDS: LINEZOLID 600 MG/300 ML BAG IV SCH (20:34)
--- NOTE | 2024-03-29 07:15 | Hospitalist Progress Note ---
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: Admitted for same problem at [facility] from 03/24-03/26/2024, CTA 03/27 showed RLL pneumonia Bronchial washings from 08/12/2023 positive for Pseudomonas aeruginosa Nasal MRSA positive WBC ~26, elevation at least in part d/t steroids CRP 26->18 Pulmonology consulted, appreciate recs: - Recommend MRSA and pseudomonal coverage ID consulted, appreciate recs: - Continue Linezolid and Cefepime - Histoplasma, Legionella urine antigen pending Sputum culture pending Blood cx negative at 24H Continue Pulmicort, Perforomist - restart Umeclidinium, change Duonebs to PRN Continue IV methylprednisolone 40mg daily Continue Guaifenesin extended release 12 mg p.o. twice daily Continue continuous supplemental oxygen, 2L at baseline, adjust as needed to maintain SpO2>90 Aspiration precautions Diabetes mellitus- Hold Jardiance and metformin Place on Accu-Cheks with NovoLog SSI CAD/hypertension- Continue aspirin 81 mg daily, losartan 25 mg daily and potassium chloride 20 mill equivalents p.o. daily Aspiration- Speech therapy evaluation completed, suspect intermittent degree of aspiration Generalized Weakness: PT/OT evaluation and treat FEN/GI: HH/DM2 VTE ppx: Heparin Admission and Anticipated Discharge Date Admission Date: March 27, 2024 Supervising Physician Co-Signing Physician Notes I personally examined the patient and verified all armando points of history and exam, discussed case, and agree with decision making with Dr Brito continues to feel better. cough and feels mucous in cehst but not much coming up yet. less sob vitals noted nad heent nc at mmm lungs show coarse rales base R otherwise quiet but clear pneumonia - very well might be in catarrhal phase of recovery from prior pneumonia with significant mucous/mucous plugging > aspiration > other. contin ue current care, continue supportive care/mucociliary clearance, appears to be improving DVT proph - heparin SQ Subjective Denies shortness of breath at rest, overall feels roughly the same, still feeling weak/fatigues. Ongoing cough with minimal sputum production, denies fevers/chills. Review of Systems Review of Systems: as per HPI Physical Exam Physical Exam: General: Alert and oriented. No acute distress Cardiac: Regular rate and rhythm, no murmurs appreciated Respiratory: Decreased air movement bilateral, Course breath sounds throughout bilateral lung holland but improved compared to yesterday Results & Data Results & Data Vital Signs (Past 12 Hours) Vital Signs Temp Pulse Pulse Resp BP Pulse Ox O2 Del Method 03/29/24 07:08 36.7 C 82 16 121/76 93 Nasal Cannula 03/29/24 03:00 36.6 C 72 18 120/68 94 Nasal Cannula 03/28/24 22:49 74 03/28/24 22:43 36.3 C L 76 18 119/76 93 Nasal Cannula 03/28/24 19:58 Nasal Cannula 03/28/24 19:47 84 18 96 Nasal Cannula 03/28/24 19:39 36.6 C 80 18 117/70 91 Nasal Cannula O2 Flow Rate 03/29/24 07:08 2 03/29/24 03:00 03/28/24 22:49 03/28/24 22:43 2 03/28/24 19:58 2 03/28/24 19:47 2 03/28/24 19:39 2 Resident Activity Tracking Resident Involvement: Resident Care Provided Care Provided: Adult Hospital Medicine (2) Right lower lobe pneumonia Pneumonia type: due to unspecified organism Qualified Code(s): J18.9 - Pneumonia, unspecified organism
[2024-03-29 08:26] LABS: Hematocrit (blood only) 47.6 % (42.0-52.0); Hemoglobin 15.4 g/dl (14.0-18.0); Mean Corpuscular Hemoglobin 29.5 pg (25.0-34.0); Mean Corpuscular Hgb Conc 32.4 g/dL (32.0-36.0); Mean Corpuscular Volume 91.2 fL (80.0-100.0); Mean Platelet Volume 10.3 fL (9.4-12.4); Platelet Count 358 K/uL (130-400); RDW Standard Deviation 47.2 fL (36.4-46.3); Red Blood Count 5.22 M/uL (4.70-6.10); White Blood Count 25.93 K/ul (4.8-10.8)
[2024-03-29 08:48] LABS: BUN Creatinine Ratio 37.3 (10-20); Blood Urea Nitrogen 25 mg/dl (6-23); C Reactive Protein 17.82 mg/dl (0-0.5); Calcium 8.8 mg/dl (8.6-10.3); Carbon Dioxide 22 mmol/L (21-32); Chloride 102 mmol/L (98-107); Creatinine Clr Calc Pharmacy 84.5 ml/min; Glucose 135 mg/dl (70-99(Fasting))
[2024-03-29 08:50] LABS: Basophils # (auto) 0.08 K/uL (0.00-0.20); Basophils % (auto) 0.3 %; Eosinophils # (auto) 0.02 K/uL (0.00-0.50); Eosinophils % (auto) 0.1 %; Immature Granulocytes % (auto) 1.5 %; Lymphocytes # (auto) 1.14 K/uL (1.20-3.40); Lymphocytes % (auto) 4.4 %; Monocytes # (auto) 2.09 K/uL (0.11-0.59); Monocytes % (auto) 8.1 %; Neutrophils % (auto) 85.6 %
[2024-03-29] MEDS: methylPREDNISolone 40 MG in SYRINGE 0 ML IV SCH (08:57)
[2024-03-29] MEDS ORDERED: methylPREDNISolone 125 MG/2 ML VIAL IV SCH (09:00)
[2024-03-29 10:38] LABS: Albumin Level 3.6 gm/dl (3.4-5.0); Magnesium 1.9 mg/dl (1.7-2.4); Phosphorus 1.4 mg/dl (2.5-4.9)
[2024-03-29] MEDS ORDERED: SODIUM PHOSPHATE 3 MMOL/1 ML INFUSION IV STA (10:44)
--- NOTE | 2024-03-29 10:50 | Pulmonology Progress Note ---
Date of Service March 29, 2024 Assessment & Plan (1) Right lower lobe pneumonia: Plan: CTA of the chest demonstrates consolidative process noted of the RIGHT lower lobe which seems to be superimposed on prior history of scarring. This certainly could be seen in the setting of ongoing chronic aspiration. Regardless, would treat given the patient's symptoms at this time. Agree with pseudomonal coverage given his prior inoculation. Pneumonia type: due to unspecified organism Qualified Code(s): J18.9 - Pneumonia, unspecified organism (2) Acute on chronic respiratory failure with hypoxia: Plan: Chronically on 2 L nasal cannula at all times. He is at 2 L at this time. (3) Aspiration pneumonia: Plan: Agree with [employer]ER evaluation. This had been addressed previously during his hospitalization with associated intubation. Reiteration of swallowing mechanics and head of bed elevation will be imperative. Completion of antibiotics as discussed above. (4) Chronic obstructive pulmonary disease: Plan: Patient on Spiriva and Dulera in the outpatient setting. Will place patient on budesonide and Perforomist in addition to as needed DuoNebs while hospitalized. Can likely transition back to his outpatient regime at the time of discharge if the patient remains clinically stable. COPD type: chronic bronchitis (5) Chronic dyspnea: Plan: Multifactorial in the 83-year-old gentleman with advanced COPD and generalized deconditioning. Admission and Anticipated Discharge Date Admission Date: March 27, 2024 Supervising Physician Co-Signing Physician Notes Patient seen separately from the JOB. Agree with the note as outlined above unless otherwise specified. Appreciate ID input. Patient still appears to have some labored breathing today and is minimally improved compared to yesterday. Patient denies any chest pain or fevers. Still with crackles in the right lower lobe. We did discuss role of bronchoscopy. Should he not have any significant improvement in the next 24 hours, will likely pursue bronchoscopy on . Continue current antibiotic regimen as outlined by ID including linezolid and cefepime. There is no evidence of bronchospasm on exam today. Will discontinue methylprednisone. Otherwise, continue Pulmicort and Perforomist. Continue efforts at mucociliary clearance with hypertonic saline and percussive vest therapy. Subjective Patient seen and evaluated at bedside. Feels as though he is improved. He is still unable to bring up any sputum. Review of Systems Review of Systems: A complete 10 point review of systems was reviewed with the patient with pertinent positives and negatives as per history of present illness. All else were negative. Physical Exam Physical Exam: VITAL SIGNS Vital signs and nursing notes were reviewed. GENERAL 83-year-old male appearing his stated age who is in no acute distress. Communicates well with provider and answers questions appropriately. SKIN Without rashes or lesions. NOSE Midline and without cyanosis. MOUTH/OROPHARYNX Without perioral cyanosis. NECK Neck with FROM. LUNGS Chest wall evaluation demonstrates increased chest wall A:P diameter. Auscultation reveals coarse breath sounds with slight wheeze noted to the RIGHT lung base. Minimal air movement throughout the upper lung holland. CARDIAC RRR with S1/S2. No murmur, rubs, or gallops appreciated. ABDOMEN Abdominal inspection demonstrates flat. BS normoactive all four quadra nts. No tenderness, palpable masses, or ascites noted. EXTREMITIES Nail clubbing not present. No peripheral cyanosis. No pretibial edema present. +3/5 radial palpated throughout. PSYCH A&Ox3 and cooperates fully with examiner. Pt is very pleasant and interacts well with examiner. Results & Data Results & Data Vital Signs (Past 12 Hours) Vital Signs Temp Pulse Pulse Resp BP Pulse Ox O2 Del Method 03/29/24 09:23 Nasal Cannula 03/29/24 09:20 82 03/29/24 07:35 84 18 93 Nasal Cannula 03/29/24 07:08 36.7 C 82 16 121/76 93 Nasal Cannula 03/29/24 03:00 36.6 C 72 18 120/68 94 Nasal Cannula O2 Flow Rate 03/29/24 09:23 2 03/29/24 09:20 03/29/24 07:35 2 03/29/24 07:08 2 03/29/24 03:00 PG Care Time/CCT Total # of Minutes Spent Total Time Spent with Patient: Total time spent is greater than 50% in coordination of care (as documented) at patient's floor/unit and/or counseling patient: Coding Level of Care Code 61028 SUB INP/OBS CARE 2/35MIN Diagnoses Right lower lobe pneumonia J18.9 Pneumonia type: due to unspecified organism Acute on chronic respiratory failure with hypoxia J96.21 Aspiration pneumonia J69.0 Simple chronic bronchitis J44.9 COPD type: chronic bronchitis Chronic dyspnea R06.09
[2024-03-29] MEDS ORDERED: ALBUT/IPRATROP 3MG/0.5MG NEB 3 ML VIAL NEB PRN (12:23)
[2024-03-29] MEDS: SODIUM PHOSPHATE 21 MMOL in SODIUM CHLORIDE 0.9% 500 ML IV ONE (12:24)
--- NOTE | 2024-03-29 13:21 | Billing Data ---
Date of Service March 29, 2024 Coding Level of Care Code 57687 SUB INP/OBS CARE
--- NOTE | 2024-03-29 14:21 | Infectious Disease Progress Nt ---
Date of Service March 29, 2024 Assessment & Plan (1) Right lower lobe pneumonia: (2) Acute on chronic respiratory failure with hypoxia: (3) Chronic respiratory failure with hypoxia: (4) Type 2 diabetes mellitus with microalbuminuria: Plan 83yo M with h/o COPD with chronic respiratory failure on 2L home O2), h/o aspiration PNA requiring intubation earlier this year, chronic allergic rhinitis, bl mixed hearing loss, old lacunar stroke, CAD, T2DM, BPH, hypothyroidism, HLD, HTN, recent admission 03/24-03/26 with bl PNA and dcd on cipro due to prior h/o PsA PNA in 08/2023 who presented on 03/27 with persistent cough, generalized weakness, and decreased ability to ambulate and do his daily activities. He is afebrile, vss, on 2L NC. Initial labs with WBC 21>25.41 with left shift. Cr 0.74. Lactate wnl. AST/ALT wnl. PCT 0.14. UA negative. MRSA screen positive. RPP negative. Chest CTA with no PE, RLL PNA with mediastinal LAD, emphysema. He has been started on empiric abx. ID consulted 03/28. Currently on cefepime/linezolid, improving. Reports loose stools. Clinically he is feeling some improvement. Will continue on current empiric regimen. He does also report having loose watery stools. Will check stool c diff. Additional w/u is in process. # RLL PNA and mediastinal LAD # COPD on baseline O2 # h/o T2DM - Rachel ordered stool C diff - f/u all cx - f/u urine histoplasma Ag and legionella Ag - continue cefepime 2g IV q8h - continue linezolid 600mg q12h ID will continue to follow. If questions or concerns, contact via Treater or Infectious Disease Call Center . Benita Gay MD [facility], Division of Infectious Diseases IDConnect: [phone] Admission and Anticipated Discharge Date Admission Date: March 27, 2024 Subjective Subsequent visit was provided via telemedicine using two-way real-time interactive telecommunication between the patient and the telemedicine provider. For the duration of the visit, the provider was performing the assessment from a different facility than the patient. This includesuse of bluetooth stethoscope forauscultationperformed by the telepresenter that the telemedicine provider can hear if described in the physical exam. Strategic Planning Manager contact information: Please call ID Connect Call Center . (Phone Number For Physician Use Only) After establishing a telemedicine visit, patient was: Patient was verified with two unique identifiers, Patient/authorized rep acknowledged consent and understanding and Gave permission to continue telehealth session Time Spent with Patient: Subsequent => 35 min Patient reports feeling some improvement today. He has been walking around and doing well. He says that he has loose watery stools, has had 3 today and some yesterday. No abdominal pain. Physical Exam Physical Exam: General: Awake, alert, no acute distress HEENT: NC/AT, EOMI, mmm Neck: supple Lungs: decreased breath sounds throughout except RUL Heart: no appreciable murmurs Abdomen: soft, NT/ND Ext: no LE edema Skin: no rash Neuro: moving all extremities Results & Data Vital Signs (Past 12 Hours) Vital Signs Temp Pulse Pulse Resp BP Pulse Ox O2 Del Method 03/29/24 12:03 36.7 C 83 17 132/76 92 Nasal Cannula 03/29/24 11:33 84 18 96 Nasal Cannula 03/29/24 09:23 Nasal Cannula 03/29/24 09:20 82 03/29/24 07:35 84 18 93 Nasal Cannula 03/29/24 07:08 36.7 C 82 16 121/76 93 Nasal Cannula 03/29/24 03:00 36.6 C 72 18 120/68 94 Nasal Cannula O2 Flow Rate 03/29/24 12:03 2 03/29/24 11:33 2 03/29/24 09:23 2 03/29/24 09:20 03/29/24 07:35 2 03/29/24 07:08 2 03/29/24 03:00 Laboratory Results Labs reviewed. (1) Right lower lobe pneumonia Pneumonia type: due to unspecified organism Qualified Code(s): J18.9 - Pneumonia, unspecified organism
[2024-03-30] MEDS ORDERED: VANCOMYCIN LEVEL ONE (05:30)
[2024-03-30 06:20] LABS: Basophils # (auto) 0.06 K/uL (0.00-0.20); Basophils % (auto) 0.3 %; Hematocrit (blood only) 43.2 % (42.0-52.0); Hemoglobin 14.1 g/dl (14.0-18.0); Immature Granulocytes # (auto) 0.48 K/uL (0.01-0.20); Immature Granulocytes % (auto) 2.4 %; Lymphocytes # (auto) 1.01 K/uL (1.20-3.40); Lymphocytes % (auto) 4.9 %; Mean Corpuscular Hemoglobin 29.6 pg (25.0-34.0); Mean Corpuscular Hgb Conc 32.6 g/dL (32.0-36.0); Mean Corpuscular Volume 90.6 fL (80.0-100.0); Mean Platelet Volume 10.1 fL (9.4-12.4); Monocytes # (auto) 1.37 K/uL (0.11-0.59); Monocytes % (auto) 6.7 %; Neutrophils % (auto) 85.7 %; Platelet Count 336 K/uL (130-400); RDW Coefficient of Variation 13.7 % (11.5-14.5); RDW Standard Deviation 45.9 fL (36.4-46.3); Red Blood Count 4.77 M/uL (4.70-6.10); White Blood Count 20.42 K/ul (4.8-10.8)
[2024-03-30 06:48] LABS: BUN Creatinine Ratio 40.7 (10-20); C Reactive Protein 10.5 mg/dl (0-0.5); Calcium 8.5 mg/dl (8.6-10.3); Creatinine Clr Calc Pharmacy 104.9 ml/min; Potassium 4.2 mmol/L (3.5-5.1)
[2024-03-30] MEDS: UMECLIDINIUM BROMIDE 62.5MCG/BLISTER 7 PUFFS/INHALER INH SCH (07:00)
[2024-03-30 07:41] LABS: Phosphorus 2.2 mg/dl (2.5-4.9)
--- NOTE | 2024-03-30 07:43 | Hospitalist Progress Note ---
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 - Histoplasma, Legionella urine antigen pending Blood cx negative at 48H Continue Pulmicort, Perforomist, Umeclidinium and Duonebs PRN Continue Guaifenesin extended release 12 mg p.o. twice daily Continue continuous supplemental oxygen, 2L at baseline, adjust as needed to maintain SpO2>90 Aspiration precautions Overall improving, hopeful for potential discharge tomorrow Diabetes mellitus- Hold Jardiance and metformin Place on Accu-Cheks with NovoLog SSI CAD/hypertension- Continue aspirin 81 mg daily, losartan 25 mg daily and potassium chloride 20 mill equivalents p.o. daily Aspiration- Speech therapy evaluation completed, suspect intermittent degree of aspiration Generalized Weakness: PT/OT evaluations completed, recommending discharge to home with home health PT/OT FEN/GI: HH/DM2 VTE ppx: Heparin Admission and Anticipated Discharge Date Admission Date: March 27, 2024 Supervising Physician Co-Signing Physician Notes I personally examined the patient and verified all armando points of history and exam, discussed case, and agree with decision making with Dr Brito feeling better each day. coughing up a good bit vitals noted nad heent nc at mmm breathing unlabored no accessory muscles good effort skin no rashes no pallor or icterus neuro no focal deficits pneumonia - very well might be in catarrhal phase of recovery from prior pneumonia with significant mucous/mucous plugging > aspiration > other. c ontinue current care,appreciate mortgage consultant input, hopefully home soon. DVT proph - heparin SQ Subjective Denies shortness of breath at rest, feeling a bit better today - less generalized weakness. Ongoing cough with minimal sputum production, denies fevers/chills. Loose watery stools x3-4 yesterday, ongoing today. Review of Systems Review of Systems: as per HPI Physical Exam Physical Exam: General: Alert and oriented. No acute distress Cardiac: Regular rate and rhythm, no murmurs appreciated Respiratory: Decreased air movement bilaterally, Course breath sounds throughout bilateral lung holland Results & Data Results & Data Vital Signs (Past 12 Hours) Vital Signs Temp Pulse Pulse Resp BP BP Pulse Ox 03/30/24 07:11 81 03/30/24 07:11 36.4 C L 74 20 118/75 96 03/30/24 06:57 88 18 98 03/30/24 02:37 36.6 C 71 18 127/73 93 03/29/24 23:10 76 03/29/24 22:59 36.6 C 74 18 118/70 94 03/29/24 20:00 03/29/24 19:49 36.6 C 87 18 120/73 93 O2 Del Method O2 Flow Rate 03/30/24 07:11 03/30/24 07:11 Nasal Cannula 2 03/30/24 06:57 Nasal Cannula 2 03/30/24 02:37 Nasal Cannula 03/29/24 23:10 03/29/24 22:59 Nasal Cannula 03/29/24 20:00 Nasal Cannula 2 03/29/24 19:49 Nasal Cannula 2 Resident Activity Tracking Resident Involvement: Resident Care Provided Care Provided: Adult Hospital Medicine (2) Right lower lobe pneumonia Pneumonia type: due to unspecified organism Qualified Code(s): J18.9 - Pneumonia, unspecified organism
--- NOTE | 2024-03-30 08:46 | Infectious Disease Progress Nt ---
Date of Service March 30, 2024 Assessment & Plan (1) Right lower lobe pneumonia: (2) Acute on chronic respiratory failure with hypoxia: (3) Chronic respiratory failure with hypoxia: (4) Type 2 diabetes mellitus with microalbuminuria: Plan 83yo M with h/o COPD with chronic respiratory failure on 2L home O2), h/o aspiration PNA requiring intubation earlier this year, chronic allergic rhinitis, bl mixed hearing loss, old lacunar stroke, CAD, T2DM, BPH, hypothyroidism, HLD, HTN, recent admission 03/24-03/26 with bl PNA and dcd on cipro due to prior h/o PsA PNA in 08/2023 who presented on 03/27 with persistent cough, generalized weakness, and decreased ability to ambulate and do his daily activities. He is afebrile, vss, on 2L NC. Initial labs with WBC 21>25.41 with left shift. Cr 0.74. Lactate wnl. AST/ALT wnl. PCT 0.14. UA negative. MRSA screen positive. RPP negative. Chest CTA with no PE, RLL PNA with mediastinal LAD, emphysema. He has been started on empiric abx. ID consulted 03/28. Currently on cefepime/linezolid, improving. Reports loose stools. Patient continuing to improve, WBC downtrending. Given no growth of Pseudomonas on sputum cultures, I think it is reasonable to stop cefepime at this time. Note, he was getting coverage for that since 03/24 as well during his last admission, today being day 7 total. We can continue on linezolid for a total duration of 5-7 days. # RLL PNA and mediastinal LAD SCX with normal hao, MRSA screen+ # COPD on baseline O2 # h/o T2DM - f/u all cx - f/u urine histoplasma Ag and legionella Ag - Rachel stopped cefepime - continue linezolid 600mg q12h can be PO if he can tolerate, for a duration of 5-7 days starting 03/28 ID will discontinue active follow up at this time. Please do not hesitate to reconsult the Infectious Diseases service as needed. Benita Gay MD [facility], Division of Infectious Diseases IDConnect: [phone] Admission and Anticipated Discharge Date Admission Date: March 27, 2024 Subjective Subsequent visit was provided via telemedicine using two-way real-time interactive telecommunication between the patient and the telemedicine provider. For the duration of the visit, the provider was performing the assessment from a different facility than the patient. This includesuse of bluetooth stethoscope forauscultationperformed by the telepresenter that the telemedicine provider can hear if described in the physical exam. Senior Back End Java Developer contact information: Please call ID Connect Call Center . (Phone Number For Physician Use Only) After establishing a telemedicine visit, patient was: Patient was verified with two unique identifiers, Patient/authorized rep acknowledged consent and understanding and Gave permission to continue telehealth session Time Spent with Patient: Subsequent => 35 min Patient reports feeling better today. Still with loose stools, 4 since last night. Nonproductive cough. No pain. Physical Exam Physical Exam: General: Awake, alert, no acute distress HEENT: NC/AT, EOMI, mmm Neck: supple Lungs: decreased breath sounds throughout, wheezing Heart: no appreciable murmurs Abdomen: soft, NT/ND Results & Data Vital Signs (Past 12 Hours) Vital Signs Temp Pulse Pulse Resp BP BP Pulse Ox 03/30/24 07:11 81 03/30/24 07:11 36.4 C L 74 20 118/75 96 03/30/24 06:57 88 18 98 03/30/24 02:37 36.6 C 71 18 127/73 93 03/29/24 23:10 76 03/29/24 22:59 36.6 C 74 18 118/70 94 O2 Del Method O2 Flow Rate 03/30/24 07:11 03/30/24 07:11 Nasal Cannula 2 03/30/24 06:57 Nasal Cannula 2 03/30/24 02:37 Nasal Cannula 03/29/24 23:10 03/29/24 22:59 Nasal Cannula Laboratory Results Labs reviewed. (1) Right lower lobe pneumonia Pneumonia type: due to unspecified organism Qualified Code(s): J18.9 - Pneumonia, unspecified organism
--- NOTE | 2024-03-30 17:52 | Billing Data ---
Date of Service March 30, 2024 Coding Level of Care Code 68044 SUB INP/OBS CARE
--- NOTE | 2024-03-31 05:10 | Electrocardiogram Report ---
Test Reason : Blood Pressure : */* mmHG Vent. Rate : 91 BPM Atrial Rate : 91 BPM P-R Int : 178 ms QRS Dur : 86 ms QT Int : 330 ms P-R-T Axes : 79 78 69 degrees QTcB Int : 405 ms Sinus rhythm Premature ventricular complexes When compared with ECG of 24-Mar-2024 15:58, Premature ventricular complexes are now Present MN interval has decreased Confirmed by Josh Malagon ([id number]) on 03/31/2024 5:09:31 AM Referred By: REFERRED SELF Confirmed By: Josh Malagon
[2024-03-31 06:47] LABS: BUN Creatinine Ratio 27.9 (10-20); Calcium 8.5 mg/dl (8.6-10.3); Creatinine Clr Calc Pharmacy 131.7 ml/min; Potassium 3.5 mmol/L (3.5-5.1)
[2024-03-31 06:50] LABS: Hematocrit (blood only) 42.9 % (42.0-52.0); Hemoglobin 14.3 g/dl (14.0-18.0); Mean Corpuscular Hemoglobin 29.9 pg (25.0-34.0); Mean Corpuscular Hgb Conc 33.3 g/dL (32.0-36.0); Mean Corpuscular Volume 89.7 fL (80.0-100.0); Platelet Count 334 K/uL (130-400); RDW Coefficient of Variation 13.4 % (11.5-14.5); RDW Standard Deviation 44.2 fL (36.4-46.3); Red Blood Count 4.78 M/uL (4.70-6.10); White Blood Count 16.79 K/ul (4.8-10.8)
[2024-03-31] MEDS ORDERED: POTASSIUM PHOS 3 MMOL/1 ML INFUSION IV STA (07:42)
--- NOTE | 2024-03-31 07:56 | Hospitalist Progress Note ---
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 twice daily Continue continuous supplemental oxygen, 2L at baseline, adjust as needed to maintain SpO2>90 Aspiration precautions Overall improving, bronch deferred - continue current course, hopeful for discharge soon. Diabetes mellitus- Hold Jardiance and metformin Place on Accu-Cheks with NovoLog SSI CAD/hypertension- Continue aspirin 81 mg daily, losartan 25 mg daily and potassium chloride 20 mill equivalents p.o. daily Aspiration- Speech therapy evaluation completed, suspect intermittent degree of aspiration Generalized Weakness: PT/OT evaluations completed, recommending discharge to home with home health PT/OT Hopeful that PT/OT can work with patient to prevent deconditioning FEN/GI: HH/DM2 VTE ppx: Heparin Admission and Anticipated Discharge Date Admission Date: March 27, 2024 Supervising Physician Co-Signing Physician Notes I personally examined the patient and verified all armando points of history and exam, discussed case, and agree with decision making with Dr Brito ongoing cough. diarrhea along with some feeling of weakness vitals noted nad heent nc at mmm breathing unlabored no accessory muscles good effort skin no rashes no pallor or icterus neuro no focal deficits pneumonia - very well might be in catarrhal phase of recovery from prior pneumon ia with significant mucous/mucous plugging > aspiration > other. finish abx w linezolid, now off gram negative coverage. improving. repeat CT as outpt diarrhea - Cdiff negative, likely nonCdiff abx associated. fiber, probiotic. DVT proph - heparin SQ Subjective Denies shortness of breath at rest, had a rough night - diarrhea, sweats and chills, postural lightheadedness. Ongoing cough with minimal sputum production, denies fevers/chills. Loose watery stools x5-6 since yesterday, ongoing today. No blood or mucus in stool. Review of Systems Review of Systems: as per HPI Physical Exam Physical Exam: General: Alert and oriented. No acute distress Cardiac: Regular rate and rhythm, no murmurs appreciated Respiratory: Decreased air movement bilaterally, RLL rhonchi on auscultation Results & Data Results & Data Vital Signs (Past 12 Hours) Vital Signs Temp Pulse Pulse Resp BP BP Pulse Ox 03/31/24 07:38 36.8 C 78 19 120/72 96 03/31/24 07:16 81 18 95 03/31/24 07:16 03/31/24 07:14 83 03/31/24 03:46 36.7 C 109 H 24 128/78 91 03/30/24 22:40 36.5 C 90 18 134/74 92 03/30/24 22:00 80 03/30/24 20:13 85 18 98 03/30/24 20:00 O2 Del Method O2 Flow Rate 03/31/24 07:38 Room Air 03/31/24 07:16 Nasal Cannula 2 03/31/24 07:16 Nasal Cannula 2 03/31/24 07:14 03/31/24 03:46 Nasal Cannula 3 03/30/24 22:40 Nasal Cannula 03/30/24 22:00 03/30/24 20:13 Nasal Cannula 2 03/30/24 20:00 Nasal Cannula 2 Resident Activity Tracking Resident Involvement: Resident Care Provided Care Provided: Adult Hospital Medicine (2) Right lower lobe pneumonia Pneumonia type: due to unspecified organism Qualified Code(s): J18.9 - Pneumonia, unspecified organism
[2024-03-31] MEDS: POT PHOSPHATE MONOBASIC W/ SOD TAB PO SCH (09:40)
[2024-03-31] MEDS ORDERED: ALBUT/IPRATROP 3MG/0.5MG NEB 3 ML VIAL NEB PRN (11:13)
[2024-03-31] MEDS: ALBUT/IPRATROP 3MG/0.5MG NEB 3 ML VIAL NEB SCH (11:24)
--- NOTE | 2024-03-31 12:30 | Pulmonology Progress Note ---
Date of Service March 31, 2024 Assessment & Plan (1) Right lower lobe pneumonia: Plan: CTA of the chest demonstrates consolidative process noted of the RIGHT lower lobe which seems to be superimposed on prior history of scarring. This certainly could be seen in the setting of ongoing chronic aspiration. Regardless, would treat given the patient's symptoms at this time. Appreciate ID recommendations. Will hold on bronch for the time being given improving white count. Recommend repeat CT chest in 6 weeks. Pneumonia type: due to unspecified organism Qualified Code(s): J18.9 - Pneumonia, unspecified organism (2) Acute on chronic respiratory failure with hypoxia: Plan: Chronically on 2 L nasal cannula at all times. He is on 2 L at this time. (3) Aspiration pneumonia: Plan: Agree with GARMENT FINISHER evaluation. This had been addressed previously during his hospitalization with associated intubation. Reiteration of swallowing mechanics and head of bed elevation will be imperative. Completion of antibiotics as discussed above. (4) Chronic obstructive pulmonary disease: Plan: Patient on Spiriva and Dulera in the outpatient setting. Will place patient on budesonide and Perforomist in addition to as needed DuoNebs while hospitalized. Can likely transition back to his outpatient regime at the time of discharge if the patient remains clinically stable. COPD type: chronic bronchitis (5) Chronic dyspnea: Plan: Multifactorial in the 83-year-old gentleman with advanced COPD and generalized deconditioning. Admission and Anticipated Discharge Date Admission Date: March 27, 2024 Subjective cough remains, but is non productive. no fevers or chills. denies chest pain. Review of Systems Review of Systems: All systems reviewed & are unremarkable except as noted in HPI & below Physical Exam Physical Exam: VITAL SIGNS Vital signs and nursing notes were reviewed. GENERAL 83-year-old male appearing his stated age who is in no acute distress. Communicates well with provider and answers questions appropriately. SKIN Without rashes or lesions. NOSE Midline and without cyanosis. MOUTH/OROPHARYNX Without perioral cyanosis. NECK Neck with FROM. LUNGS Chest wall evaluation demonstrates increased chest wall A:P diameter. Auscultation reveals coarse breath sounds with slight wheeze noted to the RIGHT lung base. Minimal air movement throughout the upper lung holland. CARDIAC RRR with S1/S2. No murmur, rubs, or gallops appreciated. ABDOMEN Abdominal inspection demonstrates flat. BS normoactive all four quadrants. No tenderness, palpable masses, or ascites noted. EXTREMITIES Nail clubbing not present. No peripheral cyanosis. No pretibial edema present. +3/5 radial palpated throughout. PSYCH A&Ox3 and cooperates fully with examiner. Pt is very pleasant and interacts well with examiner. Results & Data Results & Data Vital Signs (Past 12 Hours) Vital Signs Temp Pulse Pulse Resp BP BP Pulse Ox 03/31/24 11:41 36.5 C 75 18 117/75 94 03/31/24 11:25 77 18 96 03/31/24 07:38 36.8 C 78 19 120/72 96 03/31/24 07:16 81 18 95 03/31/24 07:16 03/31/24 07:14 83 03/31/24 03:46 36.7 C 109 H 24 128/78 91 O2 Del Method O2 Flow Rate 03/31/24 11:41 Nasal Cannula 2.0 03/31/24 11:25 Nasal Cannula 2 03/31/24 07:38 Room Air 03/31/24 07:16 Nasal Cannula 2 03/31/24 07:16 Nasal Cannula 2 03/31/24 07:14 03/31/24 03:46 Nasal Cannula 3 PG Care Time/CCT Total # of Minutes Spent Total Time Spent with Patient: Total time spent is greater than 50% in coordination of care (as documented) at patient's floor/unit and/or counseling patient: Coding Level of Care Code 81465 SUB INP/OBS CARE 2/35MIN Diagnoses Right lower lobe pneumonia J18.9 Pneumonia type: due to unspecified organism Acute on chronic respiratory failure with hypoxia J96.21 Aspiration pneumonia J69.0 Simple chronic bronchitis J44.9 COPD type: chronic bronchitis Chronic dyspnea R06.09
[2024-03-31] MEDS: ADVANCED PROBIOTIC 625 MG CAPSULE PO SCH (12:49)
[2024-03-31] MEDS: PSYLLIUM or GUAR GUM FIBER 4GM PACKET PO SCH (12:49)
--- NOTE | 2024-03-31 18:32 | Billing Data ---
Date of Service March 31, 2024 Coding Level of Care Code 09937 SUB INP/OBS CARE
[2024-03-31] MEDS ORDERED: Nursing to Pharmacy Communication SCH (20:45)
[2024-03-31 23:36] VITALS: RESP 18
[2024-04-01 06:23] LABS: Hemoglobin 14.2 g/dl (14.0-18.0); Mean Corpuscular Hemoglobin 29.3 pg (25.0-34.0); Mean Corpuscular Volume 88.7 fL (80.0-100.0); Mean Platelet Volume 9.7 fL (9.4-12.4); Platelet Count 326 K/uL (130-400); RDW Coefficient of Variation 13.2 % (11.5-14.5); RDW Standard Deviation 43.5 fL (36.4-46.3); Red Blood Count 4.85 M/uL (4.70-6.10); White Blood Count 16.51 K/ul (4.8-10.8)
[2024-04-01 06:50] LABS: BUN Creatinine Ratio 23.1 (10-20); Calcium 8.3 mg/dl (8.6-10.3); Creatinine Clr Calc Pharmacy 144.1 ml/min; Potassium 3.5 mmol/L (3.5-5.1)
--- NOTE | 2024-04-01 07:37 | Hospitalist Progress Note ---
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 twice daily Continue continuous supplemental oxygen, 2L at baseline, adjust as needed to maintain SpO2>90 Aspiration precautions Overall improving, bronch deferred - continue current course, hopeful for discharge soon. Diabetes mellitus- Hold Jardiance and metformin Place on Accu-Cheks with NovoLog SSI CAD/hypertension- Continue aspirin 81 mg daily, losartan 25 mg daily and potassium chloride 20 mill equivalents p.o. daily Aspiration- Speech therapy evaluation completed, suspect intermittent degree of aspiration Generalized Weakness: PT/OT evaluations completed, recommending discharge to home with home health PT/OT Hopeful that PT/OT can work with patient to prevent deconditioning FEN/GI: HH/DM2 VTE ppx: Heparin Admission and Anticipated Discharge Date Admission Date: March 27, 2024 Subjective Denies shortness of breath at rest, had a rough night - diarrhea, sweats and chills, postural lightheadedness. Ongoing cough with minimal sputum production, denies fevers/chills. Loose watery stools x5-6 since yesterday, ongoing today. No blood or mucus in stool. Review of Systems Review of Systems: as per HPI Physical Exam Physical Exam: General: Alert and oriented. No acute distress Cardiac: Regular rate and rhythm, no murmurs appreciated Respiratory: Decreased air movement bilaterally, RLL rhonchi on auscultation Results & Data Results & Data Vital Signs (Past 12 Hours) Vital Signs Temp Pulse Pulse Resp BP Pulse Ox O2 Del Method 04/01/24 07:26 36.8 C 72 18 109/76 96 Nasal Cannula 04/01/24 07:16 90 18 95 Nasal Cannula 04/01/24 03:35 36.5 C 78 18 126/81 95 Nasal Cannula 03/31/24 23:35 36.4 C L 75 18 137/85 93 Nasal Cannula 03/31/24 22:00 74 03/31/24 20:07 76 19 98 Nasal Cannula 03/31/24 20:00 Nasal Cannula O2 Flow Rate 04/01/24 07:26 2.0 04/01/24 07:16 2 04/01/24 03:35 2 03/31/24 23:35 2 03/31/24 22:00 03/31/24 20:07 3 03/31/24 20:00 2 (2) Right lower lobe pneumonia Pneumonia type: due to unspecified organism Qualified Code(s): J18.9 - Pneumonia, unspecified organism
--- NOTE | 2024-04-01 10:59 | Discharge Summary ---
Date of Service April 01, 2024 Admission HPI Per Admitting Provider The patient is a 83-year-old male with a past medical history including chronic respiratory failure with hypoxia, pneumonia, chronic allergic rhinitis, bilateral mixed hearing loss, old lacunar stroke without late effect, anxiety disorder, CAD, hypertension, COPD, diabetes mellitus type 2, BPH, hyperlipidemia and hypothyroidism. He was most recently admitted to [facility] from 03/24- 03/26/2024 for bilateral pneumonia, and was discharged on Cipro 500 mg by mouth twice daily, due to history of Pseudomonas aeruginosa pneumonia noted with bronchial washings on 08/12/2023. He presents to the emergency department with symptoms as noted above. Admission Exam Per Admitting Provider The patient is awake, alert and oriented 3, well developed and well nourished, normocephalic and atraumatic, lying in bed and in no acute distress. HEENT--PERRL, EOMI, mucous membranes and oropharynx normal Neck--supple. No JVD. No bruits. Thyroid normal, trachea midline, no adenopathy. Heart--normal S1 and S2. No murmurs, rubs or gallops. Lungs--coarse breath sounds at right base, with wheezes bilaterally. No respiratory distress, no accessory muscle use. Abdomen--normal bowel sounds and soft. Nontender. Nondistended. Extremities-- No edema. Dermatologic--normal skin turgor, normal color, no abnormal lymph nodes, no rash. Neurologic--cranial nerves II through XII grossly intact. Rheumatologic--normal range of motion. Psychiatric--normal affect. Principal Diagnosis RLL Pneumonia Discharge Exam General: Alert and oriented. No acute distress Cardiac: Regular rate and rhythm, no murmurs appreciated Respiratory: Decreased air movement bilaterally, RLL rhonchi on auscultation, scattered expiratory wheezes Discharge Data Allergies Allergy/AdvReac Type Severity Reaction Status Date / Time No Known Allergies Allergy Verified 03/24/24 08:40 Consultations 03/27/24 19:19 ED Decision to Admit Stat 03/28/24 07:01 Consult Pulmonology Routine 03/28/24 13:12 Consult Infectious Diseases Routine Ordered Studies 03/27/24 17:49 CT angio chest PE protocol Stat Hospital Course (1) Acute on chronic respiratory failure with hypoxia: (2) Right lower lobe pneumonia: (3) Aspiration pneumonia: (4) Hypertension: (5) CAD (coronary artery disease): (6) Type 2 diabetes mellitus with microalbuminuria: (7) BPH (benign prostatic hyperplasia): (8) Hyperlipidemia: Plan #Chronic respiratory failure// RLL pneumonia// 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: Bocamroneback readmit d/t respiratory distress, generalized weakness, CTA 03/27 c/w RLL pneumonia Bronchial washings from 08/12/2023 positive for Pseudomonas aeruginosa - negative sputum culture this admission Nasal MRSA positive WBC trending down, 16 on day of discharge Pulmonology consulted: - Bronchoscopy deferred, recommend repeat chest CT in 6 weeks ID consulted, appreciate recs: - Completed 7 days of gram negative coverage, discharged on PO Linezolid - Histoplasma, Legionella urine antigen pending, low suspicion but follow as outpatient Blood cx negative at 48H Continue home COPD regimen Continue continuous supplemental oxygen, stable on baseline 2L Diabetes mellitus- Resume home regimen on discharge CAD/hypertension- Continue aspirin 81 mg daily, losartan 25 mg daily and potassium chloride 20 mill equivalents p.o. daily Aspiration- Speech therapy evaluation completed, suspected intermittent degree of aspiration - continue to follow risk reduction measures Generalized Weakness: PT/OT evaluations completed, recommended discharge to home with home health PT/OT Total Time Total Time Spent Total Time Spent (In Minutes): <30 Discharge Plan Discharge Items Patient Disposition: Home - Self-Care Reason For Visit: ACUTE ON CHRONIC RESP FAILURE WITH HYPOXIA, RLL Discharge Diagnosis: right lower lobe pneumonia Activity: As commented below Activity Comment: activity progression as tolerated Non-emergency contact: Primary Care Provider and Lifter/Driver Call non-emergency contact if: you have any medication questions, your symptoms worsen and you have a fever Follow-up/Referrals: Dillon Griffin MD [Physician] - 05/20/24 1:00 pm (Hospital follow up scheduled with Dr. Griffin on May 20 at 1:00. The office stated that Pt's April 18 appointment has been cancelled and they will call the Pt regarding his chest CT. ) Kimberlee Syed MD [Primary Care Provider] - 04/13/24 3:00 pm (Hospital follow up scheduled April 13 at 3:00 with Corinne Rodriguez PA-C) Diet: Heart Healthy Addtl Attending Provider Instructions: You were admitted to the hospital with a pneumonia in the right lower lobe of your lung. You were treated with IV antibiotics while in the hospital. Following discharge, please finish the course of oral antibiotics - a prescription for this medication, called Linezolid, has been sent to your pharmacy. Please take 1 tab twice daily through 04/04/24, with your next dose on the evening of 04/01. Please STOP your previous antibiotic, Ciprofloxacin. As you experienced during your hospital stay, antibiotics can cause diarrhea. If this continues to be an i ssue, consider taking an over the counter probiotic or metamucil while on antibiotics. Please follow up with your primary care provider shortly after discharge. You will also need a repeat chest CT scan in about 6 weeks, which can be ordered by your outpatient doctor. No other changes were made to your medications - please continue to take them as previously directed. Pending Studies at Discharge: Yes Studies:: Urine legionella/histoplasma, AFB culture Stand-Alone Forms: My [facility] [email or web address], Smoking Cessation Medications and DC Order Prescriptions: New linezolid 600 mg tablet 600 mg PO BID Qty: 7 0RF Continued albuterol sulfate 90 mcg/actuation HFA aerosol inhaler 2 inh inhalation QID PRN (Reason: shortness of breath or wheezing) Qty: 18 3RF Hold Instructions: Resume on 09/03/23. empagliflozin 25 mg tablet 25 mg PO QAM Qty: 90 3RF losartan 25 mg tablet 25 mg PO DAILY Qty: 90 3RF metformin 500 mg tablet extended release 24 hr 1,000 mg PO BID Qty: 360 3RF levothyroxine 88 mcg tablet 88 mcg PO QAM Qty: 90 3RF (DME) OneTouch Ultra Test Strip See Rx Instructions .Route Qty: 200 3RF Rx Instructions: Test Twice per day as needed atorvastatin 20 mg tablet 20 mg PO QAM Qty: 90 3RF ipratropium-albuterol 0.5 mg-3 mg(2.5 mg base)/3 mL solution for nebulization 3 ml inhalation Q4H PRN (Reason: shortness of breath or wheezing) Qty: 180 3RF aspirin 81 mg tablet,delayed release (DR/EC) 81 mg PO QAM Dulera 200-5 mcg/actuation HFA aerosol inhaler 2 puff inhalation BID Qty: 13 3RF potassium chloride 20 mEq tablet extended release 20 meq PO DAILY Qty: 90 1RF Spiriva Respimat 2.5 mcg/actuation mist 2 puff inhalation DAILY Qty: 3 3RF fluticasone propionate 50 mcg/actuation spray,suspension 2 spray intranasal DAILY Qty: 16 2RF Rx Instructions: administer into each nostril (DME) Oxygen Home Liters Per Minute See Rx Instructions .ROUTE .MEDSUPPLY Qty: 1 0RF Rx Instructions: 2 liters with activity/ambulation. (DME) Oxygen Home Liters Per Minute See Rx Instructions .Route Qty: 2 0RF Rx Instructions: As directed benzonatate 100 mg Capsule 100 mg PO TID PRN (Reason: cough) Qty: 30 0RF sodium chloride 7 % solution for nebulization 4 ml inhalation BID Qty: 240 0RF prednisone 10 mg tablet See Rx Instructions .ROUTE .COMPLEX Qty: 12 0RF Rx Instructions: 10 mg orally 3 times a day for 2 days, then 10 mg twice a day for 2 days, then 10 mg once a day for 2 days, then stop azelastine 137 mcg (0.1 %) spray,non-aerosol 1 spray intranasal BID PRN (Reason: PT USING NEEDED) Rx Instructions: administer into each nostril Discontinued ciprofloxacin HCl [Cipro] 500 mg tablet 500 mg PO BID Qty: 10 0RF Discharge Orders: Discharge Order (Routine); Ordered 04/01/24 Ordered By: Jomar Sandoval/Other Patient Handouts: Linezolid Oral Tablet Admission Data Admit Date/Time: 03/27/24 20:15 Attending Provider: Tim Mike Admit Provider: Jayme Obrien Primary Care Provider: Kimberlee Syed Other Providers: Jayme Obrien; Dillon Griffin Other Interventions: Discharge Summary Assessment (RN) Last Done: 04/01/24 10:28 Supervising Physician Co-Signing Physician Notes I personally examined the patient and verified all armando points of history and exam, discussed case, and agree with decision making with Dr Brito breathing feeling better diarrhea improving feels up to going home vitals noted nad heent nc at mmm breathing unlabored no accessory muscles good effort skin no rashes no pallor or icterus neuro no focal deficits pneumonia - very well might be in catarrhal phase of recovery from prior pneumonia with significant mucous/mucous plugging > aspiration > other. finish abx w linezolid, now off gram negative coverage. improving. repeat CT as outpt. safe/stable for home diarrhea - Cdiff negative, likely nonCdiff abx associated. fiber, probiotic. improving. safe/stable for home. DVT proph - heparin SQ Resident Activity Tracking Resident Involvement: Resident Care Provided Care Provided: Adult [facility] Attestation I certify that this patient is under my care and that I, or a physicians assistant manager/embalmer working with me, had a face to-face encounter that meets the home health [id number] encounter requirements with this patient. The encounter with the patient was in whole, or in part, for the following medical condition, which is the primary reason for home health care (list medical condition): acute on chronic resp failure-pneumonia I certify that, based on my findings, the following services are medically necessary home health services: OT Assess ADL Status and Restore Function w ADLs PT Assessment for Endurance / Balance / Strength PT Eval for Safety and Mobility PT Eval for Safety, Gait Training, Assistive Devices PT Gait and Balance Training, Strengthening and Safety Skilled Nsg Assessment My clinical findings support the need for the above services because: patient is high risk for further deconditioning in the setting of acute on chronic respiratory failure complicated by pneumonia, whereas these services stand to help him return to baseline level of functioning and avoid need for placement. Further, I certify that my clinical findings support that this patient is homebound (i.e. absences from home require considerable and taxing effort and are for medical reasons or sikhism services or infrequently or of short duration when for other reasons) because: Transportation Assistance/Unable to Leave Home Unassisted Certification for Home Health Services: Based on the above findings, I certify that this patient is confined to the home and needs intermittent senior living care, physical therapy and/or speech therapy or continues to need occupational therapy. The patient is under my care, and I have initiated the establishment of the plan of care. This patient will be followed by a physician who will periodically review the plan of care.
[2024-04-01 11:15] VITALS: BP 135/85; PULSE 82; TEMP 97.9; O2SAT 94
--- NOTE | 2024-04-01 18:15 | Billing Data ---
Date of Service April 01, 2024 Coding Level of Care Code 15140 IN/OBS DISCH 30 MIN/LESS
== END 2024-04-01 15:42 | disposition home health service (06) | DRG 177 ==
LOC: ED 17:33 → 4W 20:15 → SUATTDRO 20:15 → 4W 21:34

== ENCOUNTER 2024-06-15 11:43 | Inpatient (IN) ==
[2024-06-15 12:06] VITALS: TEMP 98.6
[2024-06-15 12:09] LABS: Base Excess VBG 1.5 mEq/L; HCO3 VBG 31 mmol/L; Oxygen Saturation VBG < 60.0 %; PCO2 VBG 65 mmHg (38-50); PO2 VBG 22 mmHg; pH VBG 7.28 (7.36-7.41)
[2024-06-15 12:13] LABS: Hematocrit (blood only) 51.3 % (42.0-52.0); Hemoglobin 16.2 g/dl (14.0-18.0); Mean Corpuscular Hemoglobin 28.7 pg (25.0-34.0); Mean Corpuscular Hgb Conc 31.6 g/dL (32.0-36.0); Mean Platelet Volume 9.8 fL (9.4-12.4); Platelet Count 281 K/uL (130-400); RDW Coefficient of Variation 12.9 % (11.5-14.5); RDW Standard Deviation 43.3 fL (36.4-46.3); Red Blood Count 5.64 M/uL (4.70-6.10)
[2024-06-15] MEDS ORDERED: VANCOMYCIN CONSULT ACTIVE PRN (12:23)
[2024-06-15] MEDS: CEFEPIME 2000MG 2,000 MG/20 ML SYR IV STA (12:26)
[2024-06-15 12:29] LABS: Albumin Globulin Ratio 1.6 (0.9-2); Albumin Level 4.5 gm/dl (3.4-5.0); BUN Creatinine Ratio 31.8 (10-20); Bilirubin,Total 0.8 mg/dl (0.2-1.0); Calcium 9.9 mg/dl (8.6-10.3); Creatinine Clr Calc Pharmacy 96.1 ml/min; Globulin 2.9 gm/dl (2.5-4.0); Potassium 4.2 mmol/L (3.5-5.1); Total Protein 7.4 gm/dl (6.0-8.3)
[2024-06-15 12:35] LABS: Basophils # (auto) 0.03 K/uL (0.00-0.20); Basophils % (auto) 0.1 %; Eosinophils # (auto) 0.06 K/uL (0.00-0.50); Eosinophils % (auto) 0.3 %; Immature Granulocytes # (auto) 0.11 K/uL (0.01-0.20); Immature Granulocytes % (auto) 0.5 %; Lymphocytes # (auto) 1.39 K/uL (1.20-3.40); Lymphocytes % (auto) 6.8 %; Neutrophils # (auto) 18.41 K/uL (1.40-6.50); Neutrophils % (auto) 90.3 %; Toxic Vacuolation 3+; Troponin I High Sensitivity 8.2 pg/ml (0-20)
--- NOTE | 2024-06-15 12:36 | XRay Report ---
XR chest 1V portable CLINICAL HISTORY: Chest pain, nonspecific COMPARISON STUDY: 06/14/2024 FINDINGS: Heart size and pulmonary vasculature are normal. There is increased patchy consolidation at the right mid and lower lung and at the left lung base. No pleural effusion or pneumothorax. IMPRESSION: Increased bilateral pneumonia, right greater than left. ACT 112: Negative or not required by law. Electronically signed by: Tomasz Chris M.D. 06/15/2024 12:34 PM
[2024-06-15 12:44] LABS: Partial Thromboplastin Ratio 0.8; Partial Thromboplastin Time 22 Seconds (21-31); Prothrombin Time 10.6 Seconds (9.0-12.0)
[2024-06-15] MEDS: VANCOMYCIN HCL 2,500 MG in SODIUM CHLORIDE 0.9% 500 ML IV ONE (12:45)
[2024-06-15] MEDS: SODIUM CHLORIDE 0.9% 1,000 ML IV ONE (12:45)
--- NOTE | 2024-06-15 13:02 | Emergency Department Note ---
Impression & Plan Severe sepsis with septic shock, Multifocal pneumonia, Aspiration pneumonia ED Provider Note NAME: KATHERYN TORREZ Jr AGE: 83 SEX: M : 1940 ARRIVES VIA: Ambulance INFORMANT: Patient, ED PROVIDER(S): Zach Hampton MD CHIEF COMPLAINT: Shortness of breath HPI: This is a 83-year-old male presented for shortness of breath. Patient states yesterday he had a bronchoscopy. He notes that today he has been having increased shortness of breath without chest pain. No nausea vomiting or diarrhea. Does have a cough at this time. He has a lot of history of pneumonia previously. ROS: See above HPI for pertinent positives & negatives. A total of 10 systems reviewed and were otherwise negative. PAST MEDICAL HISTORY: See Below PAST SURGICAL HISTORY: See Below FAMILY HISTORY: See Below SOCIAL HISTORY: See Below HOME MEDICATIONS: See Below ALLERGIES: See Below VITALS: See Below PHYSICAL EXAMINATION: General: In extremis Head: Normocephalic and atraumatic Eyes: Normal inspection, extraocular muscles intact Ear, nose, throat: Normal external exam Neck: Normal range of motion Respiratory: Rhonchi in bilateral lungs, tripoding Cardiovascular: Regular rate/rhythm, no murmur GI: soft, nontender, no guarding or rebound Extremities: nontender, moves all extremities Neuro: The patient awake and alert, appropriately conversive, no focal deficits, symmetric faces Skin: Warm, dry, and intact MEDICAL DECISION MAKING: This is an 83-year-old male presenting for shortness of breath. As patient has had increased oxygen requirements needing over 10 L on nonrebreather. He appears clinically unwell, toxic. -I did call for urgent x-ray. X-ray performed at bedside and shows severe multifocal pneumonia. Will start cefepime and vancomycin as patient had previous Pseudomonas sputum culture as well as MRSA positive in the past. 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 Eriberto speculations also noted. VBG shows acidosis 7.28 and 65. Lactic acid 2.6 -Patient is continue to worsen despite antibiotics. I did have close discussions with him about further interventions including BiPAP and intubation. He states he does not want intubation. -Trial of BiPAP patient is generally agitated and ripping off BiPAP. Will trial IV ketamine low-dose for agitation/anxiolysis. -Patient is becoming progressively hypotensive at this time. Patient given 1 L without significant improvement. Due to concern of fluid overload on clinical exam, will defer further fluid resuscitation. Levophed was ordered. -Discussed care with Dr. Crow, who recommends I reach out to the ICU. Discussed care with Dr. Herrmann with states that if patient is a candidate for intubation, he can come to the service otherwise continues management. -Despite the ketamine infusion, patient still does not want further treatment aggressive treatment such as intubation. He states he does not feel well but he does not want to fight this any longer with his previous history of recurrent pneumonia/cancer. He is comfortable with comfort measures at this time. is here and in agreement about this plan. -Ketamine drip discontinued and morphine drip started. Levophed never started due to the patient's wishes. Differential diagnosis: Pneumonia, aspiration pneumonia, sepsis, septic shock Independent History obtained from: Diagnostics interpreted by me: ECG: ECG independently interpreted by me with likely sinus tachycardia at a rate of 127 normal QRS, normal QTc, no ST segment elevations consistent with STEMI criteria Cardiac Monitoring: An order was placed for continuous cardiac monitoring. The monitor shows a rate of 115 with sinus tachycardia rhythm. Critical Care Note: I have personally spent 72 minutes of critical care time in the direct management of this patient. This includes bedside care, interpretation of diagnostic studies, and testing, discussion with consultants, patient, and family members, and other required patient management activities. This 72 minutes is in excess of all separately billable procedures. 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 Chronic hypoxic respiratory failure Hearing loss Inguinal hernia CAD (coronary artery disease) Chronic bronchitis BPH (benign prostatic hyperplasia) Hyperlipidemia Chronic dyspnea (Chronic) Chronic sinusitis (Chronic) Hypertension Hypothyroidism Medical History Abnormal chest CT Acquired deviated nasal septum Actinic keratosis BPH (benign prostatic hyperplasia) CAD (coronary artery disease) Chronic bronchitis Chronic dyspnea Chronic gout Chronic respiratory failure with hypoxia Chronic sinusitis COPD with emphysema inhalers daily/prn, nebulizer prn Diabetes Diplopia Dysphagia improved Frequent PVCs History of aspiration pneumonia History of fracture of orbit summer 2023, from fall HTN (hypertension) Hx of basal cell carcinoma Hx of fall summer 2023- fx of orbital floor Hyperlipidemia Hypersomnolence Hypothyroidism Incidental lung nodule, > 3mm and < 8mm Inguinal hernia Mixed hearing loss, bilateral Neck pain Old lacunar stroke without late effect denies residual deficits On home oxygen therapy 2 l via NC continuous Pulmonary Mycobacterium avium infection Recurrent pneumonia Required emergent intubation h/o Tobacco use hx - quit 2022 Type 2 diabetes mellitus with microalbuminuria Surgical History History of appendectomy age 11 History of bilateral cataract extraction History of colonoscopy last 2018 History of Mohs micrographic surgery for skin cancer x3 History of tonsillectomy History of wisdom tooth extraction Hx of vasectomy Family History Other No family history of adverse response to anesthesia No family history of bleeding disorder Denies family history of Ovarian cancer Prostate cancer Myocardial infarction Breast cancer Colorectal cancer Social History Smoking Status: Former smoker Tobacco Type: Cigarettes Age Started Using Tobacco: 21; Age Quit Using Tobacco: 81; packs per day: 2; Second Hand Exposure: No; Do You Dip or Chew Tobacco: No; Tobacco Cessation Education Requested by Patient: No Hx Alcohol Use: No Hx Substance Use: No Preferred Language: Swedish Communication Ability: Effective Visual Impairment: No Limitations Hearing Ability: Normal Route Contractor Required: No Beliefs That Will Affect Care: None marital status: Single Current Living Situation: Spouse current occupational status: retired How many Children do You have: 1 Other Information That Helps Us Care for You: No Feels Safe at Home: Yes Safety Concerns: Feels Safe At This Time Dental Care, Regularly: Yes Physical Activity Frequency: 1-2 Times per Week Seatbelt Use: always Sunscreen Use: No Assistive Devices: Oxygen - Continuous Allergies Allergies Allergy/AdvReac Type Severity Reaction Status Date / Time No Known Allergies Allergy Verified 06/14/24 10:24 Home Meds Home Medications Medication Instructions Recorded Confirmed aspirin 81 mg tablet,delayed 81 mg PO QAM 07/08/23 06/15/24 release azelastine 137 mcg (0.1 %) nasal 1 spray intranasal BID PRN PT 03/27/24 06/15/24 spray USING NEEDED atorvastatin 20 mg tablet (Lipitor) 0 mg PO QAM 06/14/24 06/15/24 empagliflozin 25 mg tablet 25 mg PO QAM 06/14/24 06/15/24 (Jardiance) losartan 25 mg tablet (Cozaar) 25 mg PO DAILY 06/14/24 06/15/24 azithromycin 250 mg tablet 250 mg PO DAILY 06/15/24 06/15/24 metformin 500 mg tablet,extended 0 mg PO BID 06/15/24 06/15/24 release 24 hr sodium chloride 7 % for 0 ml inhalation BID mucus plugging 06/15/24 06/15/24 nebulization tiotropium bromide 2.5 0 puff inhalation DAILY 06/15/24 06/15/24 mcg/actuation mist for inhalation Previous Rx's Medication Instructions Recorded Oxygen Home #1 ea 05/19/22 albuterol sulfate 90 mcg/actuation 2 inh inhalation QID PRN shortness 04/15/23 aerosol inhaler of breath or wheezing #18 grams blood sugar diagnostic (OneTouch #200 ea 06/09/23 Ultra Test strips) Oxygen Home #2 L 08/20/23 mometasone-formoterol HFA 200 2 puff inhalation BID #13 grams 09/23/23 mcg-5 mcg/actuation aerosol inhaler (Dulera) ipratropium 0.5 mg-albuterol 3 mg 3 ml inhalation Q4H PRN shortness 12/29/23 (2.5 mg base)/3 mL nebulization of breath or wheezing #180 vials soln benzonatate 100 mg capsule 100 mg PO TID PRN cough #30 caps 01/13/24 levothyroxine 88 mcg tablet 88 mcg PO QAM #90 tabs 03/08/24 fluticasone propionate 50 2 spray intranasal DAILY #16 grams 03/22/24 mcg/actuation nasal spray,suspension potassium chloride 20 mEq 20 meq PO DAILY #90 tabs 04/28/24 tablet,extended release Results & Data (ED) Vital Signs Vital Signs - 24 hr 06/15/24 11:45 06/15/24 11:54 06/15/24 11:55 Temperature 37 C Temperature Source Oral Pulse Rate 124 H Pulse Rate [Apical] Pulse Rate [Finger] Respiratory Rate 24 Respiratory Effort / Characteristics Non-Labored Spontaneous Respiratory Depth Normal Respiratory Pattern Blood Pressure 115/86 Blood Pressure [Left Arm] Blood Pressure Mean 95 Blood Pressure Mean [Left Arm] Pulse Oximetry 89 L 90 Oxygen Delivery Method Nasal Cannula Nasal Cannula Oxymask Oxygen Flow Rate 5 3 8 Fraction of Inspired Oxygen Sepsis Recent Fever Within 48 Hours No Sepsis New/Unexplained Change in Mental Status No Sepsis Action Taken by Nursing No Action Required 06/15/24 12:04 06/15/24 12:08 06/15/24 12:19 Temperature Temperature Source Pulse Rate 125 H Pulse Rate [Apical] Pulse Rate [Finger] Respiratory Rate 20 Respiratory Effort / Characteristics Labored Spontaneous Respiratory Depth Respiratory Pattern Blood Pressure Blood Pressure [Left Arm] Blood Pressure Mean Blood Pressure Mean [Left Arm] Pulse Oximetry 91 Oxygen Delivery Method Oxymask Oxymask Oxygen Flow Rate 8 8 Fraction of Inspired Oxygen Sepsis Recent Fever Within 48 Hours Sepsis New/Unexplained Change in Mental Status Sepsis Action Taken by Nursing 06/15/24 12:39 06/15/24 13:03 06/15/24 13:47 Temperature Temperature Source Pulse Rate Pulse Rate [Apical] 125 H 126 H 101 H Pulse Rate [Finger] 98 H Respiratory Rate 26 H 41 H 35 H Respiratory Effort / Characteristics Spontaneous Labored Pursed Lip Short of Breath Labored Labored Respiratory Depth Respiratory Pattern Tachypnea Blood Pressure Blood Pressure [Left Arm] 103/67 69/52 L Blood Pressure Mean Blood Pressure Mean [Left Arm] 79 57 Pulse Oximetry 94 95 96 Oxygen Delivery Method High Flow Nasal Cannula High Flow Nasal Cannula Non-rebreather Oxygen Flow Rate 60 15 Fraction of Inspired Oxygen 60 Sepsis Recent Fever Within 48 Hours Sepsis New/Unexplained Change in Mental Status Sepsis Action Taken by Nursing 06/15/24 13:58 Temperature Temperature Source Pulse Rate Pulse Rate [Apical] 119 H Pulse Rate [Finger] 119 H Respiratory Rate 22 Respiratory Effort / Characteristics Spontaneous Respiratory Depth Respiratory Pattern Blood Pressure Blood Pressure [Left Arm] 70/47 L Blood Pressure Mean Blood Pressure Mean [Left Arm] 54 Pulse Oximetry 94 Oxygen Delivery Method Non-rebreather Oxygen Flow Rate 15 Fraction of Inspired Oxygen Sepsis Recent Fever Within 48 Hours Sepsis New/Unexplained Change in Mental Status Sepsis Action Taken by Nursing Laboratory Data 06/15/24 11:56 06/15/24 11:56 Lab Results 01/08/25 01/08/25 Range/Units 11:56 14:08 WBC 20.40 H (4.8-10.8) K/ul RBC 5.64 (4.70-6.10) M/uL Hgb 16.2 (14.0-18.0) g/dl Hct 51.3 (42.0-52.0) % MCV 91.0 (80.0-100.0) fL MCH 28.7 (25.0-34.0) pg MCHC 31.6 L (32.0-36.0) g/dL RDW Std Deviation 43.3 (36.4-46.3) fL RDW Coeff of Samantha 12.9 (11.5-14.5) % Plt Count 281 (130-400) K/uL MPV 9.8 (9.4-12.4) fL Immature Gran % (Auto) 0.5 % Neut % (Auto) 90.3 % Lymph % (Auto) 6.8 % Marshall % (Auto) 2.0 % Eos % (Auto) 0.3 % Baso % (Auto) 0.1 % Neut # (Auto) 18.41 H (1.40-6.50) K/uL Lymph # (Auto) 1.39 (1.20-3.40) K/uL Marshall # (Auto) 0.40 (0.11-0.59) K/uL Eos # (Auto) 0.06 (0.00-0.50) K/uL Baso # (Auto) 0.03 (0.00-0.20) K/uL Immature Gran # (Auto) 0.11 (0.01-0.20) K/uL Toxic Vacuolation 3+ PT 10.6 (9.0-12.0) Seconds INR 1.0 (0.9-1.1) APTT 22 (21-31) Seconds PTT Ratio 0.8 VBG pH 7.28 L (7.36-7.41) VBG pCO2 65 H (38-50) mmHg VBG pO2 22 mmHg VBG HCO3 31 mmol/L VBG O2 Saturation < 60.0 % VBG Base Excess 1.5 mEq/L Sodium 138 (136-145) mmol/L Potassium 4.2 (3.5-5.1) mmol/L Chloride 100 (98-107) mmol/L Carbon Dioxide 30 (21-32) mmol/L Anion Gap 8 (3-11) BUN 21 (6-23) mg/dl Creatinine 0.66 (0.6-1.4) mg/dl Est Cr Clr Drug Dosing 96.1 ml/min eGFR 93.65 BUN/Creatinine Ratio 31.8 H (10-20) Glucose 145 H (70-99(Fasting)) mg/dl Lactate 2.6 H* (0.4-2.0) mmol/L Calcium 9.9 (8.6-10.3) mg/dl Total Bilirubin 0.8 (0.2-1.0) mg/dl AST 15 (13-39) U/L ALT 13 (7-52) U/L Alkaline Phosphatase 69 (34-104) U/L Troponin I High Sens 8.2 (0-20) pg/ml Total Protein 7.4 (6.0-8.3) gm/dl Albumin 4.5 (3.4-5.0) gm/dl Globulin 2.9 (2.5-4.0) gm/dl Albumin/Globulin Ratio 1.6 (0.9-2) Administered Medications Glycopyrrolate (Glycopyrrolate 0.2 Mg/Ml Vial) 0.4 mg IV Q4H PRN PRN Reason: Rattling Secretions or Pulm Congestion Stop: 07/15/24 14:16 Last Admin: 06/15/24 16:59 Dose: 0.4 mg Documented By: STEVE Hyoscyamine (Hyoscyamine Sulfate 0.125 Mg Tab) 0.125 mg SL Q4H PRN PRN Reason: Secretions or Pulm Congestion Stop: 07/15/24 14:16 Last Admin: 06/15/24 19:05 Dose: 0.125 mg Documented By: STEVE Morphine Sulfate (Morphine Sulf) 100 mg in 100 mls @ 1 mls/hr IV .Q96H [facility]; Protocol Stop: 06/29/24 14:14 Last Admin: 06/15/24 14:46 Dose: 1 mg/hr, 1 mls/hr Documented By: Co-signed By: QGV Lorazepam (Lorazepam 2 Mg/1 Ml Vial) 0.5 mg IV Q4H PRN PRN Reason: Anxiety/Agitation Stop: 07/15/24 14:16 Last Admin: 06/15/24 16:57 Dose: 0.5 mg Documented By: STEVE Discontinued Medications Albuterol (Albut/Ipratrop 3mg/0.5mg Neb 3 Ml Vial) Confirm Administered Dose 3 ml .ROUTE .STK-MED ONE Stop: 06/15/24 12:54 Last Admin: 06/15/24 13:46 Dose: 3 ml Documented By: Cefepime HCl (Maxipime 2000mg) 2,000 mg in 20 mls @ 5 mls/min IV NOW STA; Protocol Stop: 06/15/24 12:20 Last Admin: 06/15/24 12:26 Dose: 5 mls/min Documented By: Vancomycin HCl 2,500 mg/ (Sodium Chloride) 550 mls @ 200 mls/hr IV NOW ONE Stop: 06/15/24 15:07 Last Infusion: 06/15/24 14:27 Dose: Infused Documented By: Infusion: 06/15/24 14:27 Dose: 0 mls/hr Documented By: Admin: 06/15/24 12:45 Dose: 200 mls/hr Documented By: Sodium Chloride (Nss) 1,000 mls @ 999 mls/hr IV .Q1H1M ONE Stop: 06/15/24 13:25 Last Infusion: 06/15/24 13:32 Dose: 0 mls/hr Documented By: Admin: 06/15/24 12:45 Dose: 999 mls/hr Documented By: Ketamine HCl (Ketalar / Nss) 500 mg in 500 mls @ 9.76 mls/hr IV .Q24H [facility]; Protocol Stop: 07/15/24 13:14 Last Titration: 06/15/24 14:22 Dose: Infused Documented By: Titration: 06/15/24 14:21 Dose: 0 mg/kg/hr, 0 mls/hr Documented By: Admin: 06/15/24 13:44 Dose: 0.1 mg/kg/hr, 9.8 mls/hr Documented By: JALEN Co-signed By: MICHELE Huntley (Stat Iv Infusion Titration Per Protocol) 1 each N/A NOW STA Stop: 06/15/24 13:16 Last Admin: 06/15/24 14:17 Dose: Not Given Documented By: MH Miscellaneous (Stat Iv Infusion Titration Per Protocol) 1 each N/A NOW STA Stop: 06/15/24 14:13 Last Admin: 06/15/24 14:50 Dose: Not Given Documented By: Morphine Sulfate (Morphine Sulfate 2 Mg/Ml Carp) 2 mg IV NOW STA Stop: 06/15/24 14:20 Last Admin: 06/15/24 15:04 Dose: 2 mg Documented By: Norepinephrine Bitartrate (Norepinephrine/D5w 4 Mg/250 Ml) Confirm Administered Dose 4 mg IV .STK-MED ONE Stop: 06/15/24 13:54 Last Admin: 06/15/24 14:05 Dose: Not Given Documented By: Ondansetron HCl (Ondansetron Inj 2 Mg/Ml 2 Ml Vial) Confirm Administered Dose 4 mg .ROUTE .STK-MED ONE Stop: 06/15/24 13:40 Last Admin: 06/15/24 13:46 Dose: Not Given Documented By: Ondansetron HCl (Ondansetron Inj 2 Mg/Ml 2 Ml Vial) 4 mg IV NOW STA Stop: 06/15/24 13:41 Last Admin: 06/15/24 13:45 Dose: 4 mg Documented By: Imaging Data Radiologist's Impression: Chest X-Ray 06/15/24 11:55 XR chest 1V portable CLINICAL HISTORY: Chest pain, nonspecific COMPARISON STUDY: 06/14/2024 FINDINGS: Heart size and pulmonary vasculature are normal. There is increased patchy consolidation at the right mid and lower lung and at the left lung base. No pleural effusion or pneumothorax. IMPRESSION: Increased bilateral pneumonia, right greater than left. ACT 112: Negative or not required by law. Electronically signed by: Tomasz Chris M.D. 06/15/2024 12:34 PM Discharge Plan Visit Data Chief Complaint: Shortness of Breath/Dyspnea Stated Complaint: SOB ED Provider: Zach Hampton Discharge Problem: Severe sepsis with septic shock, Multifocal pneumonia, Aspiration pneumonia Patient Disposition: Admitted As Inpatient Discharge Instructions Interventions: ED Discharge Assessment Last Done: 06/15/24 16:30
[2024-06-15] MEDS: KETAMINE HCL / NSS 500 MG/500 ML BAG IV SCH (13:44)
[2024-06-15] MEDS: ONDANSETRON INJ 2 MG/ML 2 ML VIAL IV STA (13:45)
[2024-06-15] MEDS: ALBUT/IPRATROP 3MG/0.5MG NEB 3 ML VIAL ONE (13:46)
[2024-06-15] MEDS: ONDANSETRON INJ 2 MG/ML 2 ML VIAL ONE (13:46)
[2024-06-15] MEDS: NOREPINEPHRINE/D5W 4 MG/250 ML IV ONE (14:05)
[2024-06-15] MEDS ORDERED: MoRPHine BOLUS from BAG IV PRN (14:12)
[2024-06-15] MEDS: STAT IV Infusion **Titration per Protocol STA ×2 (14:17→14:50)
[2024-06-15] MEDS ORDERED: MoRPHine SULFATE 10 MG/0.5 ML UDP PO PRN (14:17)
[2024-06-15] MEDS ORDERED: MoRPHine SULFATE 2 MG/ML CARP IV PRN (14:17)
[2024-06-15] MEDS ORDERED: ONDANSETRON INJ 2 MG/ML 2 ML VIAL IV PRN (14:17)
--- NOTE | 2024-06-15 14:25 | History & Physical Report ---
Date of Service June 15, 2024 Assessment & Plan (1) Comfort measures only status: Plan: Morphine for pain and shortness of breath Lorazepam for anxiety Glycopyrrolate/hyoscyamine/atropine for secretions Ondansetron for nausea O2 as needed for air hunger (2) Aspiration pneumonia: (3) Multifocal pneumonia: (4) Severe sepsis with septic shock: (5) Acute on chronic respiratory failure with hypoxia and hypercapnia: Plan VTE Prophylaxis - deferred due to comfort care status Diet - easy to chew, as able Disposition - admit to med/surg History of Present Illness Chief Complaint: Shortness of breath Primary Care Provider: Kimberlee Morales MD Antonio Seymour is an 83 year old male with 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 He chronically uses 2LPM O2 at home but currently requiring 15LPM O2 to maintain O2 sats > 88% and unable to tolerate BiPAP in the ER. He is in significant respiratory distress and started on ketamine to see if he can tolerate BiPAP. No fever, chills, chest pain. No lung cancer diagnosis but he recently underwent bronchoscopy yesterday to assess right lower lobe masslike consolidation following multifocal pneumonia diagnosis in March last year. Results from this pathology are not resulted at time of admission. Initially I asked for ER provider to discuss case with the ICU given use of ketmaine however the patient now wishes to switch to a comport care approach. With the hypercapnic respiratory failure, hypotension, significant respiratory distress and unable to tolerate BiPAP we discussed intubation including with the ER provider and the patient is adamantly against this which is consistent with his previous wishes. He wishes to be made comfortable at this time and declines further antibiotics. Discussion were had with the in the room and she agrees with her husbands decision. He has chronic respiratory failure with previous discussion of hospice with palliative care and repeated pneumonias requiring hospitalizations therefore this decision appears reasonable. Allergies Allergy/AdvReac Type Severity Reaction Status Date / Time No Known Allergies Allergy Verified 06/14/24 10:24 Home Medications Medication Instructions Recorded Confirmed Type Oxygen Home #1 ea 05/19/22 05/17/24 Rx albuterol sulfate 90 mcg/actuation 2 inh inhalation QID PRN shortness 04/15/23 06/15/24 Rx aerosol inhaler of breath or wheezing #18 grams blood sugar diagnostic (OneTouch #200 ea 06/09/23 05/17/24 Rx Ultra Test strips) aspirin 81 mg tablet,delayed 81 mg PO QAM 07/08/23 06/15/24 History release Oxygen Home #2 L 08/20/23 05/17/24 Rx mometasone-formoterol HFA 200 2 puff inhalation BID #13 grams 09/23/23 06/15/24 Rx mcg-5 mcg/actuation aerosol inhaler (Dulera) ipratropium 0.5 mg-albuterol 3 mg 3 ml inhalation Q4H PRN shortness 12/29/23 06/15/24 Rx (2.5 mg base)/3 mL nebulization of breath or wheezing #180 vials soln benzonatate 100 mg capsule 100 mg PO TID PRN cough #30 caps 01/13/24 06/15/24 Rx levothyroxine 88 mcg tablet 88 mcg PO QAM #90 tabs 03/08/24 06/15/24 Rx fluticasone propionate 50 2 spray intranasal DAILY #16 grams 03/22/24 06/15/24 Rx mcg/actuation nasal spray,suspension azelastine 137 mcg (0.1 %) nasal 1 spray intranasal BID PRN PT 03/27/24 06/15/24 History spray USING NEEDED potassium chloride 20 mEq 20 meq PO DAILY #90 tabs 04/28/24 06/15/24 Rx tablet,extended release atorvastatin 20 mg tablet (Lipitor) 0 mg PO QAM 06/14/24 06/15/24 History empagliflozin 25 mg tablet 25 mg PO QAM 06/14/24 06/15/24 History (Jardiance) losartan 25 mg tablet (Cozaar) 25 mg PO DAILY 06/14/24 06/15/24 History azithromycin 250 mg tablet 250 mg PO DAILY 06/15/24 06/15/24 History metformin 500 mg tablet,extended 0 mg PO BID 06/15/24 06/15/24 History release 24 hr sodium chloride 7 % for 0 ml inhalation BID mucus plugging 06/15/24 06/15/24 History nebulization tiotropium bromide 2.5 0 puff inhalation DAILY 06/15/24 06/15/24 History mcg/actuation mist for inhalation Past Med/Surg History Problem List (Updated 06/16/24 @ 06:07 by Julio Crow MD) Acute on chronic respiratory failure with hypoxia and hypercapnia Aspiration pneumonia (Acute) Multifocal pneumonia (Acute) Severe sepsis with septic shock (Acute) Comfort measures only status Chronic allergic rhinitis Mixed hearing loss, 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 Chronic hypoxic respiratory failure Hearing loss Inguinal hernia CAD (coronary artery disease) Chronic bronchitis BPH (benign prostatic hyperplasia) Hyperlipidemia Chronic dyspnea (Chronic) Chronic sinusitis (Chronic) Hypertension Hypothyroidism Medical History Abnormal chest CT Acquired deviated nasal septum Actinic keratosis BPH (benign prostatic hyperplasia) CAD (coronary artery disease) Chronic bronchitis Chronic dyspnea Chronic gout Chronic respiratory failure with hypoxia Chronic sinusitis COPD with emphysema inhalers daily/prn, nebulizer prn Diabetes Diplopia Dysphagia improved Frequent PVCs History of aspiration pneumonia History of fracture of orbit summer 2023, from fall HTN (hypertension) Hx of basal cell carcinoma Hx of fall summer 2023- fx of orbital floor Hyperlipidemia Hypersomnolence Hypothyroidism Incidental lung nodule, > 3mm and < 8mm Inguinal hernia Mixed hearing loss, bilateral Neck pain Old lacunar stroke without late effect denies residual deficits On home oxygen therapy 2 l via NC continuous Pulmonary Mycobacterium avium infection Recurrent pneumonia Required emergent intubation h/o Tobacco use hx - quit 2022 Type 2 diabetes mellitus with microalbuminuria Surgical History History of appendectomy age 11 History of bilateral cataract extraction History of colonoscopy last 2018 History of Mohs micrographic surgery for skin cancer x3 History of tonsillectomy History of wisdom tooth extraction Hx of vasectomy Family History Other No family history of adverse response to anesthesia No family history of bleeding disorder Denies family history of Ovarian cancer Prostate cancer Myocardial infarction Breast cancer Colorectal cancer Social History Smoking Status: Former smoker Tobacco Type: Cigarettes Age Started Using Tobacco: 21; Age Quit Using Tobacco: 81; packs per day: 2; Second Hand Exposure: No; Do You Dip or Chew Tobacco: No; Tobacco Cessation Education Requested by Patient: No Hx Alcohol Use: No Hx Substance Use: No Preferred Language: [place] Communication Ability: Effective Visual Impairment: No Limitations Hearing Ability: Normal Supervisor Insecticide Required: No Beliefs That Will Affect Care: None marital status: Single Current Living Situation: Spouse current occupational status: retired How many Children do You have: 1 Other Information That Helps Us Care for You: No Feels Safe at Home: Yes Safety Concerns: Feels Safe At This Time Dental Care, Regularly: Yes Physical Activity Frequency: 1-2 Times per Week Seatbelt Use: always Sunscreen Use: No Assistive Devices: Oxygen - Continuous Review of Systems Review of Systems: All systems reviewed & are unremarkable except as noted in HPI & below Physical Exam Constitutional: + acute distress (respiratory) Eyes: + anicteric sclerae; normal pupil size ENMT: Mouth: + dry oral mucous membranes Respiratory: + labored breathing, + uses accessory mu scles and + tachypneic; + not able to speak in complete sentence Cardiovascular: Rate/Rhythm: regular rhythm and + tachycardic Heart Sounds: no murmur Extremities: + abnormal capillary refill, no calf tenderness and no pedal edema Gastrointestinal (Abdomen): normal bowel sounds, soft, nontender, no hepatosplenomegaly Skin: no rashes, warm and dry Neurologic: moves all extremities and awake; not confused Psychiatric: A+Ox3, euthymic affect Results & Data Results & Data Vital Signs (Past 12 Hours) Vital Signs Temp Pulse Pulse Pulse Resp BP BP 06/15/24 13:58 119 H 119 H 22 70/47 L 06/15/24 13:47 101 H 35 H 69/52 L 06/15/24 13:03 126 H 98 H 41 H 103/67 06/15/24 12:39 125 H 26 H 06/15/24 12:19 06/15/24 12:08 20 06/15/24 12:04 125 H 06/15/24 11:55 06/15/24 11:54 06/15/24 11:45 37 C 124 H 24 115/86 Pulse Ox O2 Del Method O2 Flow Rate FiO2 06/15/24 13:58 94 Non-rebreather 15 06/15/24 13:47 96 Non-rebreather 15 06/15/24 13:03 95 High Flow Nasal Cannula 06/15/24 12:39 94 High Flow Nasal Cannula 60 60 06/15/24 12:19 Oxymask 8 06/15/24 12:08 91 Oxymask 8 06/15/24 12:04 06/15/24 11:55 90 Oxymask 8 06/15/24 11:54 Nasal Cannula 3 06/15/24 11:45 89 L Nasal Cannula 5 Laboratory Results Abnormal lab results 06/15/24 06/15/24 Range/Units 11:56 14:08 WBC 20.40 H (4.8-10.8) K/ul MCHC 31.6 L (32.0-36.0) g/dL Neut # (Auto) 18.41 H (1.40-6.50) K/uL VBG pH 7.28 L (7.36-7.41) VBG pCO2 65 H (38-50) mmHg BUN/Creatinine Ratio 31.8 H (10-20) Glucose 145 H (70-99(Fasting)) mg/dl Lactate 2.6 H* (0.4-2.0) mmol/L Diagnostic Findings XR chest 1V portable CLINICAL HISTORY: Chest pain, nonspecific COMPARISON STUDY: 06/14/2024 FINDINGS: Heart size and pulmonary vasculature are normal. There is increased patchy consolidation at the right mid and lower lung and at the left lung base. No pleural effusion or pneumothorax. IMPRESSION: Increased bilateral pneumonia, right greater than left. Medications Administered ER Medications Given: Cefepime 2000mg IV Vancomycin 2500mg IV Normal saline 1000ml bolus Duoneb 3ml NEB Ketamine 0.1mg/kg/hr Ondansetron 4mg IV ECG Rate (beats per minute): 127 Rhythm: other (accelerated junctional rhythm) Comparison ECG Date: from (March 27, 2024) Change: the following changes noted (junctional rhythm replaced sinus rhythm) Code Status & VTE Plan Code Status DNR/DNI VTE Prophylaxis Plan VTE Prophylaxis will be ordered: No PG Care Time/CCT Total # of Minutes Spent Total Time Spent with Patient: Total time spent is greater than 50% in coordination of care (as documented) at patient's floor/unit and/or counseling patient: Coding Level of Care Code 03551 INT INP/OBS CARE 3/75MIN Diagnoses Comfort measures only status Z51.5 Aspiration pneumonia J69.0 Multifocal pneumonia J18.9 Severe sepsis with septic shock A41.9; R65.21 Acute on chronic respiratory failure with hypoxia and hypercapnia J96.21; J96.22
[2024-06-15] MEDS: MoRPHine SULF 100 MG/100 ML BAG IV SCH (14:46)
[2024-06-15] MEDS: MoRPHine SULFATE 2 MG/ML CARP IV STA (15:04)
[2024-06-15 16:50] VITALS: BP 105/55; PULSE 115; RESP 32; O2SAT 93
[2024-06-15] MEDS: LORazepam 2 MG/1 ML VIAL IV PRN (16:57)
[2024-06-15] MEDS: GLYCOPYRROLATE 0.2 MG/ML VIAL IV PRN (16:59)
[2024-06-15] MEDS: HYOSCYAMINE SULFATE 0.125 MG TAB SL PRN (19:05)
[2024-06-15] MEDS: ATROPINE SULFATE 1% OP SOLN 5 ML BTL SL PRN (20:50)
--- NOTE | 2024-06-16 07:36 | Electrocardiogram Report ---
Test Reason : Blood Pressure : */* mmHG Vent. Rate : 127 BPM Atrial Rate : * BPM P-R Int : * ms QRS Dur : 84 ms QT Int : 320 ms P-R-T Axes : * 78 74 degrees QTcB Int : 465 ms Poor data quality, interpretation may be adversely affected Suspect sinus tachycardia Otherwise normal ECG When compared with ECG of 27-Mar-2024 17:37, No significant change Confirmed by Wilmar Munroe ([id number]) on 06/16/2024 7:36:08 AM Referred By: Confirmed By: Wilmar Munroe
--- NOTE | 2024-06-16 08:37 | Hospitalist Progress Note ---
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 Plan VTE Prophylaxis - deferred due to comfort care status Diet - easy to chew, as able Disposition - admit to med/surg Admission and Anticipated Discharge Date Admission Date: June 15, 2024 Results & Data Results & Data Vital Signs (Past 12 Hours) Vital Signs O2 Del Method O2 Flow Rate 06/15/24 20:55 Nasal Cannula 2 PG Care Time/CCT Total # of Minutes Spent Total Time Spent with Patient: Total time spent is greater than 50% in coordination of care (as documented) at patient's floor/unit and/or counseling patient: Coding Diagnoses Comfort measures only status Z51.5 Aspiration pneumonia J69.0 Multifocal pneumonia J18.9 Severe sepsis with septic shock A41.9; R65.21 Acute on chronic respiratory failure with hypoxia and hypercapnia J96.21; J96.22
--- NOTE | 2024-06-16 09:23 | Discharge Summary ---
Discharge Summary Date of Service June 16, 2024 Principal Dx & Hospital Course #1 = Principal Diagnosis (1) Acute on chronic respiratory failure with hypoxia and hypercapnia: Admitted for shortness of breath and found to be septic with acute on chronic re spiratory failure with hypoxia/hypercapnea and 15L NRB to maintain sats/unable to tolerate BipAP in ER. 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 Patient with improvement in symptoms and continued comfort measures overnight and at 9:05am this morning with son Fabian at bedside. Son reported notifying his sister and mother and reported patient appeared much more comfortable/no air hunger/less gurgling and was comfortable at time of passing which he was amazed at compared to how he was on admission. 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 He chronically uses 2LPM O2 at home but currently requiring 15LPM O2 to maintain O2 sats > 88% and unable to tolerate BiPAP in the ER. He is in significant respiratory distress and started on ketamine to see if he can tolerate BiPAP. No fever, chills, chest pain. No lung cancer diagnosis but he recently underwent bronchoscopy yesterday to assess right lower lobe masslike consolidation following multifocal pneumonia diagnosis in March last year. Results from this pathology are not resulted at time of admission. Initially I asked for ER provider to discuss case with the ICU given use of ketmaine however the patient now wishes to switch to a comport care approach. With the hypercapnic respiratory failure, hypotension, significant respiratory distress and unable to tolerate BiPAP we discussed intubation including with the ER provider and the patient is adamantly against this which is consistent with his previous wishes. He wishes to be made comfortable at this time and declines further antibiotics. Discussion were had with the in the room and she agrees with her husbands decision. He has chronic respiratory failure with previous discussion of hospice with palliative care and repeated pneumonias requiring hospitalizations therefore this decision appears reasonable. Discharge Exam 83yo male in bed, son at bedside No pulses, no respirations, doesn't respond to verbal/physical stimuli, pupils fixed/nonreactive Discharge Plan Discharge Items Patient Disposition: Other Date/Time: 06/16/24 09:05 Hospital Stay Data Consultations 06/15/24 12:48 ED Decision to Admit Stat Diagnostic Imagining Performed Chest X-Ray 06/15/24 11:55 XR chest 1V portable CLINICAL HISTORY: Chest pain, nonspecific COMPARISON STUDY: 06/14/2024 FINDINGS: Heart size and pulmonary vasculature are normal. There is increased patchy consolidation at the right mid and lower lung and at the left lung base. No pleural effusion or pneumothorax. IMPRESSION: Increased bilateral pneumonia, right greater than left. ACT 112: Negative or not required by law. Electronically signed by: Tomasz Chris M.D. 06/15/2024 12:34 PM Supervising Physician Co-Signing Physician Notes The patient was not seen by me. The chart was reviewed. Case discussed with LISBETH Liz. Agree with assessment and plan Total Time Total Time Spent Total Time Spent (In Minutes): 35 Coding Level of Care Code 40259 INP/OBS DISCH >30 MIN Diagnoses Acute on chronic respiratory failure with hypoxia and hypercapnia J96.21; J96.22 Severe sepsis with septic shock A41.9; R65.21 Comfort measures only status Z51.5 Aspiration pneumonia J69.0 Multifocal pneumonia J18.9
--- NOTE | 2024-06-16 09:26 | Death Pronouncement Note ---
Date of Service June 16, 2024 Pronouncement Note Admission Date June 15, 2024 Date and Time of Date of : 06/16/24 Time of : 09:05 Preliminary Cause of (1) Acute on chronic respiratory failure with hypoxia and hypercapnia: Additional Comments: admitted with worsening shortness of breath following bronchoscopy with significant distress and ketamine administration in ER, not able to tolerate BiPAP. Notable recent biopsy prelim on lymph node w/ primary lung w/ metastatic disease and decision to be made comfort on admission given NRB to 15L w/ air hunger and was placed on morphine/ativan/robinuol and passed inpatient 905am on 06/16 with son Fabian at bedside who arrived ~20-40 minutes prior to event and reported patient much better appearing/more comfortable at time of event (2) Aspiration pneumonia: (3) Multifocal pneumonia: (4) Severe sepsis with septic shock: (5) Comfort measures only status: Additional Data Confirmation of : no pulse, no respirations, no heart sounds and pupils fixed and dilated Pronouncement Performed By: Advanced Practice Provider (JOB) Family: at bedside Additional persons at bedside: 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
== END 2024-06-16 13:29 | disposition expired | DRG 939 ==
LOC: ED 11:43 → EDINP 14:20 → SUATTDRO 14:20 → 3E 16:30